=== PATIENT | male | born 1945 | race Caucasian/White ===

== ENCOUNTER 2022-09-21 18:27 | Outpatient (RCR) | payer MEDICARE, OTHER, SELFPAY | END 2022-10-15 23:59 | disposition home or self-care (01) | LOC: MM 18:27 | PROVIDERS: PCP Internal Medicine; Visit Provider Internal Medicine | DX: Z51.81 Encounter for therapeutic drug level monitoring (principal); Z79.01 Long term (current) use of anticoagulants | CPT/HCPCS: 85610; G0463 ==

== ENCOUNTER 2022-10-20 09:59 | Outpatient (RCR) | payer MEDICARE, OTHER, SELFPAY | END 2022-11-15 17:09 | disposition home or self-care (01) | LOC: MM 09:59 | PROVIDERS: PCP Internal Medicine; Visit Provider Internal Medicine | DX: Z51.81 Encounter for therapeutic drug level monitoring (principal); Z79.01 Long term (current) use of anticoagulants | CPT/HCPCS: 85610; G0463 ==

== ENCOUNTER 2022-11-16 09:46 | Outpatient (RCR) | payer MEDICARE, OTHER, SELFPAY | END 2022-12-16 17:43 | disposition home or self-care (01) | LOC: MM 09:46 | PROVIDERS: PCP Internal Medicine; Visit Provider Internal Medicine | DX: Z51.81 Encounter for therapeutic drug level monitoring (principal); Z79.01 Long term (current) use of anticoagulants | CPT/HCPCS: 85610; G0463 ==

== ENCOUNTER 2022-12-17 09:06 | Outpatient (RCR) | payer MEDICARE, OTHER, SELFPAY | END 2023-01-14 17:02 | disposition home or self-care (01) | LOC: MM 09:06 | PROVIDERS: PCP Internal Medicine; Visit Provider Internal Medicine | DX: Z51.81 Encounter for therapeutic drug level monitoring (principal); Z79.01 Long term (current) use of anticoagulants | CPT/HCPCS: 85610; G0463 ==

== ENCOUNTER 2023-01-17 03:38 | Outpatient (RCR) | payer MEDICARE, OTHER, SELFPAY | END 2023-02-15 17:46 | disposition home or self-care (01) | LOC: MM 03:38 | PROVIDERS: PCP Internal Medicine; Visit Provider Internal Medicine | DX: Z51.81 Encounter for therapeutic drug level monitoring (principal); Z79.01 Long term (current) use of anticoagulants | CPT/HCPCS: 85610; G0463 ==

== ENCOUNTER 2023-02-16 00:29 | Outpatient (RCR) | payer MEDICARE, OTHER, SELFPAY | END 2023-03-17 16:52 | disposition home or self-care (01) | LOC: MM 00:29 | PROVIDERS: PCP Internal Medicine; Visit Provider Internal Medicine | DX: Z51.81 Encounter for therapeutic drug level monitoring (principal); Z79.01 Long term (current) use of anticoagulants | CPT/HCPCS: 85610; G0463 ==

== ENCOUNTER 2023-03-22 09:53 | Outpatient (OUT) | payer MEDICARE, OTHER, SELFPAY ==
--- NOTE | 2023-03-22 11:09 | CA_ITS ---
Patient Name: BENNIE RAYA MR#: [id number] : 1945 Exam Date: 03/22/2023 Ordering Doctor: DR ANGELA ESPINO M.D. ECHOCARDIOGRAM REPORT PROCEDURE: CA ECHO DOPPLER COMPLETE INDICATIONS: Heart failure COMPARISON: None. DESCRIPTION: COMPLETE ECHOCARDIOGRAM Real-time transthoracic echocardiography with 2D, M-mode, spectral and color flow Doppler performed. QUALITY: Technical quality was good. LEFT VENTRICLE: Normal chamber size. Normal left ventricular wall thickness. LV EF: Global left ventricular systolic function is severely reduced; visually estimated ejection fraction is 15-20%. Calculated EF is 28%. 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 Diffuse hypokinesis. DIASTOLIC: Grade I diastolic dysfunction. ATRIAL SEPTUM: Inadequately seen. LEFT ATRIUM: Normal chamber size. RIGHT ATRIUM: Normal chamber size. Pacer wire present. RIGHT VENTRICLE: Normal chamber size. Normal right ventricular systolic function. Pacer wire seen. TRICUSPID VALVE: Normal mobility and thickness. Mild regurgitation. No evidence of pulmonary hypertension. RVSP 30mmHg MITRAL VALVE: Normal mobility and thickness. No evidence of mitral valve stenosis. Mild mitral annular calcification. Trivial mitral regurgitation. AORTIC VALVE: Normal trileaflet appearance. Mildly calcified aortic valve. Normal leaflet mobility. No evidence of aortic valve stenosis. Trivial aortic regurgitation. AORTIC ROOT: Normal diameter and appearance. PULMONIC VALVE: Normal thickness and mobility. No stenosis. No regurgitation. PERICARDIUM: No evidence of pericardial effusion. IVC: Collapses with inspirations. Normal size. CONCLUSION: 1. Global left ventricular systolic function is severely reduced; visually estimated ejection fraction is 15 to 20% 2. Segmental wall motion abnormality seen 3. The right ventricle is normal size and systolic function 4. Mild diastolic dysfunction 5. Mild tricuspid regurgitation Adult Echocardiography Procedure Report Left Ventricle LVEDD (3.7 - 5.6 cm): 4.67 cm LVESD (2.2 - 4.0 cm): 4.18 cm LVIVS thickness (0.6 - 1.2 cm): 0.89 cm LVPW thickness (0.5 - 1.0 cm): 0.98 cm e': 0.04 m/s E - e': 7.78 LVOT Max Gradient: 2.47 mm[Hg] LVOT Area (cm2): 0.79 m/s Peak Velocity (LVOT): 0.79 m/s Mean Velocity (LVOT): 0.52 m/s LVOT Diameter 2.12 cm Left Atrium LA Volume Index (2D A2C): 30.60 ml/m2 Left Atrium Systolic Dimension: 3.54 cm Mitral Valve MV E to A Ratio: 0.50 Mitral Valve A-Wave Peak Velocity: 0.69 m/s Mitral Valve E-Wave Peak Velocity: 0.35 m/s Right Ventricle RV Internal Diastolic Dimension: 3.79 cm Aorta AO Root Diam: 3.45 cm Ascending Ao Diam: 2.78 cm Aortic Valve AoV Area (Peak Satinder): 2.59 cm2, 2.59 cm2 AoV Area (VTI): 2.41 cm2, 2.41 cm2 Peak Velocity(Antegrade Flow): 1.07 m/s Peak Gradient(Antegrade Flow): 4.61 mm[Hg] Mean Velocity(Antegrade Flow): 0.81 m/s Mean Gradient(Antegrade Flow): 2.89 mm[Hg] Velocity Time Integral: 26.05 cm Tricuspid Valve Peak Velocity (Regurgitant Flow): 1.86 m/s, 2.04 m/s, 2.58 m/s Pulmonic Valve Mean Gradient: 1.84 mm[Hg], 1.96 mm[Hg] Mean Velocity: 0.63 m/s, 0.65 m/s Peak Velocity: 0.95 m/s Peak Gradient: 3.26 mm[Hg], 3.97 mm[Hg] Right Atrium Right Atrium Systolic Pressure: 66.45 ml, 66.45 ml Dictated by: Fernando Wilder M.D. on 03/23/2023 at 16:00 Approved by: Fernando Wilder M.D. on 03/23/2023 at 16:06
== END 2023-03-22 09:54 | disposition home or self-care (01) ==
LOC: CARD 09:53
PROVIDERS: PCP Internal Medicine; Visit Provider Internal Medicine Interventional Cardiology
DX: I50.22 Chronic systolic (congestive) heart failure (principal); I47.29 Other ventricular tachycardia
CPT/HCPCS: 93306; 93356

== ENCOUNTER 2023-03-24 14:39 | Outpatient (RCR) | payer MEDICARE, OTHER, SELFPAY | END 2023-04-15 15:44 | disposition home or self-care (01) | LOC: MM 14:39 | PROVIDERS: PCP Internal Medicine; Visit Provider Internal Medicine | DX: Z51.81 Encounter for therapeutic drug level monitoring (principal); Z79.01 Long term (current) use of anticoagulants | CPT/HCPCS: 85610; G0463 ==

== ENCOUNTER 2023-04-18 02:33 | Outpatient (RCR) | payer MEDICARE, OTHER, SELFPAY | END 2023-05-18 17:11 | disposition home or self-care (01) | LOC: MM 02:33 | PROVIDERS: PCP Internal Medicine; Visit Provider Internal Medicine | DX: Z51.81 Encounter for therapeutic drug level monitoring (principal); Z79.01 Long term (current) use of anticoagulants | CPT/HCPCS: 85610; G0463 ==

== ENCOUNTER 2023-05-19 00:57 | Outpatient (RCR) | payer MEDICARE, OTHER, SELFPAY | END 2023-06-16 17:36 | disposition home or self-care (01) | LOC: MM 00:57 | PROVIDERS: PCP Internal Medicine; Visit Provider Internal Medicine | DX: Z51.81 Encounter for therapeutic drug level monitoring (principal); Z79.01 Long term (current) use of anticoagulants; Z78.9 Other specified health status | CPT/HCPCS: 85610; G0463 ==

== ENCOUNTER 2023-06-17 01:24 | Outpatient (RCR) | payer MEDICARE, OTHER, SELFPAY | END 2023-07-15 13:56 | disposition home or self-care (01) | LOC: MM 01:24 | PROVIDERS: PCP Internal Medicine; Visit Provider Internal Medicine | DX: Z51.81 Encounter for therapeutic drug level monitoring (principal); Z79.01 Long term (current) use of anticoagulants | CPT/HCPCS: 85610; G0463 ==

== ENCOUNTER 2023-06-21 09:14 | Emergency (ER) | payer MEDICARE, OTHER, SELFPAY ==
--- OUTSIDE RECORDS SUMMARY | 2023-06-21 09:27 | XMS_ITS | CCD ---
Author Name Unknown Address [address] [place] [address] Organization [facility] Care Team Providers Care Lawn Care Worker Name Role Phone ZULY ABAD AM Admitting Unavailable ZULY ABAD AM Attending Unavailable FLORY ROBIN Referring Unavailable ROBIN, FLORY Primary Care Unavailable ZULY ABAD AM Admitting Unavailable ZULY ABAD AM Attending Unavailable FLORY ROBIN Referring Unavailable SHARDA, FLORY Primary Care Unavailable Sebas Jalloh MD Flory Robin Primary Care Provider MD Sebas Jalloh Attending Provider Sebas Jalloh Admitting Unavailable Sebas Jalloh Attending Unavailable Flory Robin Primary Care Unavailable FAWWAD, LINDA H Attending Unavailable ROBIN ., DR FLORY Azevedo Primary Care Unavailable FAWWAD, LINDA H Admitting Unavailable FAWWAD, LINDA H Attending Unavailable ROBIN ., DR FLORY Azevedo Primary Care Unavailable FAWWAD, LINDA H Admitting Unavailable FAWWAD, LINDA H Attending Unavailable ROBIN ., DR FLORY Azevedo Primary Care Unavailable FAWWAD, LINDA H Admitting Unavailable FAWWAD, LINDA H Attending Unavailable ROBIN ., DR FLORY Azevedo Primary Care Unavailable FAWWAD, LINDA H Admitting Unavailable FAWWAD, LINDA H Admitting Unavailable ROBIN ., DR FLORY Azevedo Primary Care Unavailable FAWWAD, LINDA H Attending Unavailable ROBIN ., DR FLORY Azevedo Primary Care Unavailable FAWWAD, LINDA H Admitting Unavailable FAWWAD, LINDA H Attending Unavailable ROBIN ., DR FLORY Azevedo Primary Care Unavailable FAWWAD, LINDA H Admitting Unavailable FAWWAD, LINDA H Attending Unavailable ROBIN ., DR FLORY Azevedo Primary Care Unavailable FAWWAD, LINDA H Admitting Unavailable FAWWAD, LINDA H Attending Unavailable ROBIN ., DR FLORY Azevedo Primary Care Unavailable FAWWAD, LINDA H Admitting Unavailable FAWDAYNED, LINDA H Attending Unavailable ANGELA ESPINO Admitting Unavailable ROBIN ., DR FLORY Azevedo Primary Care Unavailable EVELIOUKADMITRIY, ANGELA Attending Unavailable ANGELA ESPINO Consulting Unavailable EVELIOUKADMITRIY, ANGELA Attending Unavailable EVELIOUKAANGELA IZAGUIRRE Admitting Unavailable ROBIN ., DR FLORY Azevedo Primary Care Unavailable ROBIN ., DR FLORY Azevedo Primary Care Unavailable FAWWAD, LINDA H Admitting Unavailable FAWWAD, LINDA H Attending Unavailable ROBIN ., DR FLORY Azevedo Primary Care Unavailable FAWWAD, LINDA H Admitting Unavailable FAWWAD, LINDA H Attending Unavailable Pete Gar Primary Care Physician Pete Gar Attending Unavailable Pete Gar Attending Unavailable Pete Gar Attending Unavailable Pete Gar Attending Unavailable Pete Gar Attending Unavailable Pete Gar Attending Unavailable Pete Gar Admitting Unavailable CHANDAN BECK Attending Unavailable JUAN RAMON SMALL Referring Unavailable ANGELA ESPINO Attending Unavailable JUAN RAMON SMALL Referring Unavailable Allergies Allergy Classification Reported Allergen(s) Allergy Type Date of Onset Reaction(s) Facility (1 source) No Known Medication Allergies; Translations: [No Known Medication Allergies] Propensity to adverse reactions (disorder) [facility] Repository Medications Current Medications Medication Drug Class(es) Dates Sig (Normalized) Sig (Original) Aspir-81 (10 sources) Aspir-81 Active aspirin 81 mg oral tablet (1 source) Platelet Aggregation Inhibitor, Nonsteroidal Anti-inflammatory Drug Start: 01-21-2021 take 81 mg by mouth once daily Aspirin Active 81 MG PO Daily January 21, 2021 12:00am atorvastatin 80 mg oral tablet (20 sources) HMG-CoA Reductase Inhibitor Start: 02-28-2023 take 1 tablet by mouth once daily atorvastatin 80 mg Tab 80 mg = 1 tab(s), Oral, Daily, # 90 tab(s), Refills(s) 1, Pharmacy: [facility]/pharmacy #[id number], 167.8, cm, 02/28/23 18:13:00 EST, Height/Length Dosing, 65.2, kg, 02/28/23 18:13:00 EST, Weight Dosing Start Date: 02/28/23 Status: Ordered Start: 01-21-2021 take 80 mg by mouth once daily Atorvastatin Active 80 MG PO Daily January 21, 2021 12:00am Lipitor Not-Taki ng Atorvastatin Kenny cium Active Lipitor Active balsalazide disodium 750 mg oral capsule (10 sources) Aminosalicylate Start: 02-28-2023 take 3 capsules by mouth three times daily balsalazide 750 mg oral capsule 2,250 mg = 3 cap(s), Oral, TID, # 504 cap(s), Refills(s) 0 Start Date: 02/28/23 Status: Ordered Start: 04-13-2021 take 3 capsules by m outh every eight hours Balsalazide Disodium 750 MG 3 capsules Orally three times a day for 30 days Mar, Active Start: 04-13-2021 take 3 capsules by m outh every twelve hours Balsalazide Disodium 750 MG 3 capsules Orally Twice a day for 30 day(s) Mar, Active carvedilol 6.25 mg oral tablet (12 sources) alpha-Adrenergic Wenceslao, beta-Adrenergic Wenceslao Start: 02-28-2023 take 1 tablet by mouth twice daily carvedilol 6.25 mg Tab 6.25 mg = 1 tab(s), Oral, BID, Refills(s) 0 Start Date: 02/28/23 Status: Ordered Start: 01-21-2021 take 12.5 mg by mout h twice daily Carvedilol Active 12.5 MG PO Twice daily January 21, 2021 12:00am take 1 tablet by binta th every twelve hours Carvedilol 12.5 MG 1 tablet with food Orally Twice a day Active Carvedilol Activ e cholecalciferol 0.025 mg oral tablet (1 source) Vitamin D Start: 06-30-2022 take 1 tablet by mouth once daily Cholecalciferol (Vitamin D3) (Vitamin D3) 25 mcg (1,000 unit) Tablet Active 25 MCG PO Daily June 30, 2022 12:00am Multivitamin preparation (1 source) Start: 06-30-2022 take 1 tablet by mouth once daily Multivitamin Active 1 TAB PO Daily June 30, 2022 12:00am [place] 5-Nrj-Wpm-Fish Oil (Fish Oil) 60-90-500 mg Capsule (1 source) Start: 06-30-2022 take 1 capsule by mouth once daily [place] 1-Lat-Qed-Fish Oil (Fish Oil) 60-90-500 mg Capsule Active 1 CAP PO Daily June 30, 2022 12:00am sacubitril 24 mg / valsartan 26 mg oral tablet (12 sources) Angiotensin 2 Receptor Wenceslao Start: 02-28-2023 take 1 tablet by mouth twice daily Entresto 24 mg-26 mg oral tablet 1 tab(s), Oral, BID, Refill(s) 0 Start Date: 02/28/23 Status: Ordered Start: 01-21-2021 take 1 tablet by binta th twice daily Sacubitril-Valsartan (Entresto) 24-26 mg Tablet Active 1 TAB PO Twice daily January 21, 2021 12:00am ENTRESTO 2-26 mg Active ENTRESTO Active spironolactone 25 mg oral tablet (7 sources) Aldosterone Antagonist Start: 03-01-2023 take 0.5 tablet by mouth once daily spironolactone 25 mg Tab See Instructions, 1/2 tablet orally daily, Refills(s) 0 Start Date: 03/01/23 Status: Ordered Start: 06-30-2022 take 12.5 mg by mout h once daily Spironolactone Active 12.5 MG PO Daily June 30, 2022 12:00am take 0.5 tablet by m outh once daily Spironolactone 25 MG 1/2 tablet Orally Once a day Active Spironolactone 2 5 MG 1 tablet Orally Active warfarin sodium 4 mg oral tablet (12 sources) Vitamin K Antagonist Start: 02-28-2023 warfarin 4 mg Tab See Instructions, Take 4 mg orally on mondays and fridays and 8mg the other 5 days of the week, Refills(s) 0 Start Date: 02/28/23 Status: Ordered Start: 01-21-2021 Warfarin Activ e 4 MG PO As Directed January 21, 2021 12:00am take 2 tablets by mo uth every twenty-four hours Warfarin Sodium 4 MG 2 tablet Orally Once a day Active Warfarin Sodium Active Completed/Discontinued Medications Medication Drug Class(es) Dates Sig (Normalized) Sig (Original) mesalamine 1200 mg delayed release oral tablet (9 sources) Aminosalicylate Start: 02-17-2021 take 4 tablets by mouth every twenty-four hours Lialda 1.2 GM 4 tablets Orally Once a day for 30 day(s) Feb, Not-Taking predniSONE 5 mg oral tablet (9 sources) Start: 02-17-2021 predniSONE 5 MG 20MG FOR 1 WEEK, 15 MG FOR 1 WEEK, 10 MG FOR 1 WEEK, 5 MG FOR 1 WEEK Orally Once a day for 28 days Feb, Not-Taking Problems Active Problems Problem Classification Problem Date Documented Da te Episodic/Chronic Cardiac dysrhythmias (2 sources) Unspecified atrial fibrillation; Translations: [Paroxysmal atrial fibrillation] Onset: 8 02-28-2023 Chronic Conduction disorders (4 sources) Encounter for adjustment and management of automatic implantable cardiac defibrillator; Translations: [Presence of automatic (implantable) cardiac defibrillator] Onset: 2 Chronic Congestive heart failure; nonhypertensive (6 sources) Chronic systolic (congestive) heart failure; Translations: [CHRONIC SYSTOLIC HEART FAILURE] Onset: 2 Chronic Coronary atherosclerosis and other heart disease (2 sources) 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; Translations: [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] Onset: 2 Chronic Diverticulosis and diverticulitis (11 sources) Diverticulosis of sigmoid colon; Translations: [Diverticulosis of large intestine without perforation or abscess without bleeding] Onset: 1 Resolved: 1 Chronic Heart valve disorders (1 source) Presence of prosthetic heart valve; Translations: [PRESENCE OF PROSTHETIC HEART VALVE] Onset: 2 Chronic Other aftercare (8 sources) Encounter for therapeutic drug level monitoring; Translations: [ENCOUNTER FOR THERAPEUTIC DRUG LEVEL MONITORING] Onset: 9 Episodic Other aftercare (2 sources) detention (current) use of anticoagulants; Translations: [NURSING HOME (CURRENT) USE OF ANTICOAGULANTS] Onset: 9 Episodic Other circulatory disease (1 source) History of cerebrovascular accident 02-28-2023 Episodic Other connective tissue disease (1 source) Adhesive capsulitis of shoulder 02-28-2023 Episodic Other gastrointestinal disorders (10 sources) Incontinence of feces; Translations: [Full incontinence of feces] Episodic Other gastrointestinal disorders (10 sources) Constipation; Translations: [Constipation, unspecified] Episodic Other male genital disorders (1 source) Disorder of prostate 02-28-2023 Episodic Paralysis (1 source) Hemiparesis 02-28-2023 Chronic Peripheral and visceral atherosclerosis (1 source) Arteriosclerotic vascular disease 02-28-2023 Chronic Regional enteritis and ulcerative colitis (14 sources) Ulcerative colitis; Translations: [Ulcerative colitis, unspecified, without complications] Onset: 1 Resolved: 1 Chronic Spondylosis; intervertebral disc disorders; other back problems (1 source) Degeneration of lumbar intervertebral disc 02-28-2023 Chronic Unclassified (2 sources) DX Onset: 9 Unclassified (1 source) Other ventricular tachycardia; Translations: [Other ventricular tachycardia] Onset: 2 Past or Other Problems Problem Classification Problem Date Documented Da te Episodic/Chronic Other circulatory disease (3 sources) Personal history of transient ischemic attack (TIA), and cerebral infarction without residual deficits; Translations: [PRSNL HX OF TIA (TIA), AND CEREB INFRC W/O RESID DEFICITS] Onset: 07-17-2018 Episodic Other circulatory disease (1 source) Hemorrhage, not elsewhere classified Onset: 02-17-2021 Resolved: 02-17-2021 Episodic Other gastrointestinal disorders (1 source) Full incontinence of feces Onset: 02-17-2021 Resolved: 02-17-2021 Episodic Other gastrointestinal disorders (1 source) Constipation, unspecified Onset: 02-17-2021 Resolved: 02-17-2021 Episodic Unclassified (1 source) Other ventricular tachycardia; Translations: [Other ventricular tachycardia] Onset: 07-20-2022 Results Test Name Value Interpretation Reference Range Facil ity Consent for Flu Vaccineon Consent for Flu Vaccine [id number] #[id number] Normal [place] [facility] Office Visiton 03-02-2023 Follow-up visit [id number] Bennie Dennis 1945 M Date Provider Department Center 03/02/2023 ANGELA JOY ROBERTO [facility] Family History Problem Relation Age of Onset Coronary artery disease Brother Diabetes Brother Family Status - Relation Status Age at Brother Level of Service:64512 RI OFFICE/OUTPATIENT ESTABLISHED LOW MDM 20-29 MIN Reason for Visit and Comments: Follow-up [394382] Normal [facility] Auto Diffon 03-01-2023 Basophils/100 WBC (Bld) 0.9 % Normal 0.0-2.0 [facility] Comment on above: Order Comment: Order Added by Discern Expert. Performed By: #### 2 590676, 6816197, 9320178, 70804318, 0811516, [id number] #### [facility] [address] [place] [address] Basophils/Leukocytes Auto (Bld) [Pure # fraction] 0.1 E9/L Normal 0.0-0.2 [facility] Comment on above: Order Comment: Order Added by Discern Expert. Performed By: #### 2 767103, 0687369, 5814914, 53438340, 7208196, [id number] #### [facility] [address] [place] [address] Eosinophils/100 WBC (Bld) 3.8 % Normal 0.0-8.0 [facility] Comment on above: Order Comment: Order Added by Discern Expert. Performed By: #### 2 970109, 5723629, 4857483, 00501307, 9588491, 14251044 #### [facility] [address] [place] [address] Eosinophils/Leukocyt es Auto (Bld) [Pure # fraction] 0.3 E9/L Normal 0.0-0.5 [facility] Comment on above: Order Comment: Order Added by Discern Expert. Performed By: #### 2 127667, 5048590, 9670936, 72952525, 5297751, 98298392 #### [facility] [address] [place] [address] Lymphocytes/100 WBC (Bld) 22.4 % Normal 14.0-50.0 [facility] Comment on above: Order Comment: Order Added by Discern Expert. Performed By: #### 2 921574, 7248242, 6379250, 42562745, 1909878, 49721892 #### [facility] [address] [place] [address] Lymphocytes/Leukocyt es Auto (Bld) [Pure # fraction] 1.6 E9/L Normal 1.0-4.0 [facility] Comment on above: Order Comment: Order Added by Discern Expert. Performed By: #### 2 594781, 8886508, 2876489, 49917223, 4850848, 05711116 #### [facility] [address] [place] [address] Monocytes/100 WBC (Bld) 9.1 % Normal 4.0-14.0 [facility] Comment on above: Order Comment: Order Added by Discern Expert. Performed By: #### 2 107676, 7759976, 2471840, 69432370, 6930639, 35347457 #### [facility] [address] [place] [address] Monocytes/Leukocytes Auto (Bld) [Pure # fraction] 0.6 E9/L Normal 0.2-1.0 [facility] Comment on above: Order Comment: Order Added by Discern Expert. Performed By: #### 2 494220, 1244018, 7655550, 56298760, 9775595, 98167475 #### [facility] [address] [place] [address] Neutrophils/100 WBC (Bld) 63.8 % Normal 36.0-75.0 [facility] Comment on above: Order Comment: Order Added by Discern Expert. Performed By: #### 2 643677, 1993152, 2246006, 82277434, 1874121, 98019449 #### [facility] [address] [place] [address] Neutrophils/Leukocyt es Auto (Bld) [Pure # fraction] 4.5 E9/L Normal 2.0-7.5 [facility] Comment on above: Order Comment: Order Added by Discern Expert. Performed By: #### 2 045947, 3840879, 8543125, 91681526, 4657152, 84907227 #### [facility] [address] [place] [address] CBC w/ Auto Diffon Erythrocyte distribution width (RBC) [Ratio] 13.9 % Normal 10.9-14.2 [facility] Comment on above: Performed By: #### 2 471877, 8517970, 4340527, 23843764, 6088857, 84113202 #### [facility] [address] [place] [address] Hematocrit (Bld) [Volume fraction] 40.4 % Normal 37.7-49.0 [facility] Comment on above: Performed By: #### 2 313650, 6459977, 8821173, 01003024, 1212849, 92978240 #### [facility] [address] [place] [address] Hemoglobin (Bld) [Mass/Vol] 13.4 g/dL Low 13.5-17.5 [facility] Comment on above: Performed By: #### 2 256319, 2336767, 3104556, 06543361, 9196729, 86105563 #### [facility] [address] [place] [address] MCH (RBC) [Entitic mass] 31.0 pg Normal 27.0-34.0 [facility] Comment on above: Performed By: #### 2 054484, 6706622, 5769694, 87040340, 6845318, 27140612 #### [facility] [address] [place] [address] MCHC (RBC) [Mass/Vol] 33.3 g/dL Normal 31.4-36.0 [facility] Comment on above: Performed By: #### 2 140706, 9788434, 1639616, 96851381, 5954139, 04302584 #### [facility] [address] [place] [address] MCV (RBC) [Entitic vol] 92.9 fL Normal 80.0-100.0 [facility] Comment on above: Performed By: #### 2 476999, 1463417, 9197735, 34266080, 0527755, 43771789 #### [facility] [address] [place] [address] Platelet mean volume (Bld) [Entitic vol] 9.2 fL Normal 6.4-10.8 [facility] Comment on above: Performed By: #### 2 517659, 3408728, 9952852, 96366792, 4784819, 64227189 #### [facility] [address] [place] [address] Platelets (Bld) [#/Vol] 229.0 E9/L Normal 150.0-500.0 [facility] Comment on above: Performed By: #### 2 500603, 1999567, 6405055, 47964815, 6914597, 95144212 #### [facility] [address] [place], [place] [address] RBC (Bld) [#/Vol] 4.3 E12/L Normal 4.3-5.9 [facility] Comment on above: Performed By: #### 2 146039, 4151561, 5480849, 43122394, 3019449, 25243001 #### [facility] [address] [place] [address] WBC corrected for nucl RBC Auto (Bld) [#/Vol] 7.1 E9/L Normal 4.0-11.0 [facility] Comment on above: Performed By: #### 2 684678, 0298813, 7635636, 41016745, 0262802, 70555398 #### [facility] [address] [place] [address] CHEMISTRYOrdered By: SYSTEM SYSTEM on 03-01-2023 Albumin [Mass/Vol] 4.1 g/dL Normal 3.3 - 5.0 gm/dL [facility] Albumin/Globulin [Mass ratio] 1.2 {ratio} Normal 1.1 - 2.2 [facility] ALP [Catalytic activity/Vol] 91 [iU]/d Normal 21 - 98 Int._Unit/L [facility] ALT No additional P-5'-P [Catalytic activity/Vol] 20 [iU]/d Normal 6 - 46 Int._Unit/L [facility] Anion gap [Moles/Vol] 12 mmol/L Normal 6 - 16 mEq/L [facility] AST [Catalytic activity/Vol] 43 [iU]/d Normal 5 - 43 Int._Unit/L [facility] Bilirubin [Mass/Vol] 0.8 mg/dL Normal 0.0 - 1.1 mg/dL [facility] Calcium [Mass/Vol] 9.3 mg/dL Normal 8.9 - 11.1 mg/dL [facility] Chloride [Moles/Vol] 103 mmol/L Normal 101 - 111 mmol/ L [facility] Cholesterol [Mass/Vol] 154 mg/dL Normal 120 - 200 mg/dL [facility] Cholesterol in HDL [Mass/Vol] 47 mg/dL Invalid Interpretation Code [facility] Comment on above: Interpretive Data: H DL > or equal to 60 mg/dL: Low cardiovascular risk HDL < 40 mg/dL : High cardiovascular risk Cholesterol in LDL [Mass/Vol] 87 mg/dL Normal <=129mg/dL [facility] Cholesterol in VLDL [Mass/Vol] 19 mg/dL Normal 7 - 40 mg/dL [facility] CO2 [Moles/Vol] 28 mmol/L Normal 21 - 31 mmol/L [facility] Creatinine [Mass/Vol] 0.9 mg/dL Normal 0.5 - 1.3 mg/dL [facility] GFR/1.73 sq M.predicted among non-blacks MDRD (S/P/Bld) [Vol rate/Area] 89 mL/min/1.73 m2 Normal >=59mL/min/1.73 m2 [facility] Comment on above: Interpretive Data: C hronic kidney disease could be indicated at eGFR's of less than 60 mL/min/1.73m2. Kidney failure is indicated at less than 15 mL/min/1.73m2. Globulin (S) [Mass/Vol] 3.5 g/dL Normal 1.4 - 4.0 gm/dL [facility] Glucose [Mass/Vol] 93 mg/dL Normal 55 - 199 mg/dL [facility] Comment on above: Interpretive Data: I f this glucose result represents a fasting glucose, interpretation should refer to the following reference range: 55-99 mg/dL Potassium [Moles/Vol] 4.5 mmol/L Normal 3.5 - 5.3 mmol/L [facility] Prostate specific Ag [Mass/Vol] 0.5 ng/mL Normal 0.1 - 3.5 ng/mL [facility] Comment on above: Interpretive Data: T he concentration of PSA determined by different manufacturers can vary due to differences in assay methods and reagent specificity. Values obtained from different assay methods cannot be used interchangeably. The methodology used for this result was chemiluminescence using [employer] PSA reagent. Protein [Mass/Vol] 7.6 g/dL Normal 6.0 - 7.8 gm/dL [facility] Remisol Sodium [Moles/Vol] 138 mmol/L Normal 135 - 145 mmol/L [facility] Triglyceride [Mass/Vol] 97 mg/dL Normal <=149mg/dL [facility] Urea nitrogen [Mass/Vol] 19 mg/dL Normal 5 - 21 mg/dL [facility] Urea nitrogen/Creatinine [Mass ratio] 21 mg/mg High 10 - 20 [facility] CMPon 03-01-2023 Albumin [Mass/Vol] 4.1 g/dL Normal 3.3-5.0 [facility] Comment on above: Performed By: #### 2 429429, 9075269, 3800168, 20244397, 1491596, 10210920 #### [facility] [address] [place] [address] Albumin/Globulin (S) [Mass conc ratio] 1.2 Normal 1.1-2.2 [facility] Comment on above: Performed By: #### 2 925683, 5535284, 3581610, 12970001, 3258140, 08206222 #### [facility] [address] [place] [address] ALP [Catalytic activity/Vol] 91 Int._Unit/L Normal 21-98 [facility] Comment on above: Performed By: #### 2 384745, 0100197, 9777635, 34779346, 8510217, 87622581 #### [facility] [address] [place] [address] ALT No additional P-5'-P [Catalytic activity/Vol] 20 Int._Unit/L Normal 6-46 [facility] Comment on above: Performed By: #### 2 016185, 8250136, 6504088, 38398079, 2072174, 15900471 #### [facility] [address] [place] [address] Anion gap [Moles/Vol] 12 mmol/L Normal 6-16 [facility] Comment on above: Performed By: #### 2 432258, 9465308, 7288681, 94230094, 0295007, 09844560 #### [facility] [address] [place] [address] AST [Catalytic activity/Vol] 43 Int._Unit/L Normal 5-43 [facility] Comment on above: Performed By: #### 2 732779, 8334374, 3772088, 66558833, 2745169, 16785875 #### [facility] [address] [place] [address] Bilirubin [Mass/Vol] 0.8 mg/dL Normal 0.0-1.1 [facility] Comment on above: Performed By: #### 2 945194, 5369898, 8806991, 30132803, 9039649, 90717500 #### [facility] [address] [place] [address] Calcium [Mass/Vol] 9.3 mg/dL Normal 8.9-11.1 [facility] Comment on above: Performed By: #### 2 956422, 4416003, 8461240, 05439273, 7558176, 25178079 #### [facility] [address] [place] [address] Chloride [Moles/Vol] 103 mmol/L Normal 101-111 [facility] Comment on above: Performed By: #### 2 481830, 3279631, 6994792, 57088646, 9540597, 72297912 #### [facility] [address] [place] [address] CO2 [Moles/Vol] 28 mmol/L Normal 21-31 [facility] Comment on above: Performed By: #### 2 217313, 6872458, 1155901, 81146507, 8093646, 01025011 #### [facility] [address] [place] [address] Creatinine [Mass/Vol] 0.9 mg/dL Normal 0.5-1.3 [facility] Comment on above: Performed By: #### 2 753489, 3835482, 2992907, 34400384, 3555918, 15188979 #### [facility] [address] [place] [address] Globulin (S) [Mass/Vol] 3.5 g/dL Normal 1.4-4.0 [facility] Comment on above: Performed By: #### 2 341218, 4839393, 2502339, 52357441, 4611172, 83921829 #### [facility] [address] [place] [address] Glucose [Mass/Vol] 93 mg/dL Normal 55-199 [facility] Comment on above: Result Comment: If t his glucose result represents a fasting glucose, interpretation should refer to the following reference range: 55-99 mg/dL Performed By: #### 2 685775, 8791276, 2038683, 37004395, 7757224, 47740584 #### [facility] [address] [place] [address] Potassium [Moles/Vol] 4.5 mmol/L Normal 3.5-5.3 [facility] Comment on above: Performed By: #### 2 [id number], [id number], [id number], [id number], [id number], [id number] #### [facility] [address] [place] [address] Protein [Mass/Vol] 7.6 g/dL Normal 6.0-7.8 [facility] Comment on above: Performed By: #### 2 [id number], [id number], [id number], [id number], [id number], [id number] #### [facility] [address] [place] [address] Sodium [Moles/Vol] 138 mmol/L Normal 135-145 [facility] Comment on above: Performed By: #### 2 497917, [id number], 3139852, [id number], [id number], [id number] #### [facility] [address] [place] [address] Urea nitrogen [Mass/Vol] 19 mg/dL Normal 5-21 [facility] Comment on above: Performed By: #### 2 468847, 0752922, 3515726, [id number], [id number], [id number] #### [facility] [address] [place] [address] Urea nitrogen/Creatinine [Mass ratio] 21 No Units High 10-20 [facility] Comment on above: Performed By: #### 2 [id number], [id number], 1321952, [id number], [id number], [id number] #### [facility] [address] [place] [address] HEMATOLOGYOrdered By: SYSTEM SYSTEM on 03-01-2023 Basophils/100 WBC (Bld) 0.9 % Normal 0.0 - 2.0 % [facility]eAutoSS Basophils/Leukocytes Auto (Bld) [Pure # fraction] 0.1 E9/L Normal 0.0 - 0.2 E9/L [facility]eAutoSS Eosinophils/100 WBC (Bld) 3.8 % Normal 0.0 - 8.0 % [facility] Eosinophils/Leukocyt es Auto (Bld) [Pure # fraction] 0.3 E9/L Normal 0.0 - 0.5 E9/L [facility] Lymphocytes/100 WBC (Bld) 22.4 % Normal 14.0 - 50.0 % [facility] HemeAutoSS Lymphocytes/Leukocyt es Auto (Bld) [Pure # fraction] 1.6 E9/L Normal 1.0 - 4.0 E9/L [facility]eAutoSS Monocytes/100 WBC (Bld) 9.1 % Normal 4.0 - 14.0 % [facility]eAutoSS Monocytes/Leukocytes Auto (Bld) [Pure # fraction] 0.6 E9/L Normal 0.2 - 1.0 E9/L [facility] Neutrophils/100 WBC (Bld) 63.8 % Normal 36.0 - 75.0 % [facility]eAutoSS Neutrophils/Leukocyt es Auto (Bld) [Pure # fraction] 4.5 E9/L Normal 2.0 - 7.5 E9/L [facility] HemeAutoSS HEMATOLOGYOrdered By: Nyasia Escalona on 03-01-2023 Erythrocyte distribution width (RBC) [Ratio] 13.9 % Normal 10.9 - 14.2 % [facility] Hematocrit (Bld) [Volume fraction] 40.4 % Normal 37.7 - 49.0 % [facility] Hemoglobin (Bld) [Mass/Vol] 13.4 g/dL Low 13.5 - 17.5 gm/dL [facility] MCH (RBC) [Entitic mass] 31.0 pg Normal 27.0 - 34.0 pg [facility] MCHC (RBC) [Mass/Vol] 33.3 g/dL Normal 31.4 - 36.0 gm/dL [facility] MCV (RBC) [Entitic vol] 92.9 fL Normal 80.0 - 100.0 fL [facility] Platelet mean volume (Bld) [Entitic vol] 9.2 fL Normal 6.4 - 10.8 fL [facility] Platelets (Bld) [#/Vol] 229.0 E9/L Normal 150.0 - 500.0 E9/L [facility] RBC (Bld) [#/Vol] 4.3 E12/L Normal 4.3 - 5.9 E12/L [facility] WBC corrected for nucl RBC Auto (Bld) [#/Vol] 7.1 E9/L Normal 4.0 - 11.0 E9/L [facility] Lipid Panelon 03-01-2023 Cholesterol [Mass/Vol] 154 mg/dL Normal 120-200 [facility] Comment on above: Performed By: #### 2 [id number], 7433439, 1476857, [id number], [id number], [id number] #### [facility] [address] [place] [address] Cholesterol in HDL [Mass/Vol] 47 mg/dL Invalid Interpretation Code [facility] Comment on above: Result Comment: HDL > or equal to 60 mg/dL: Low cardiovascular risk HDL < 40 mg/dL : High cardiovascular risk Performed By: #### 2 190770, 7508478, 5875365, [id number], 5886254, [id number] #### [facility] [address] [place] [address] Cholesterol in LDL [Mass/Vol] 87 mg/dL Normal <=129 [facility] Comment on above: Performed By: #### 2 722449, 0284999, 8182277, 04009269, 7069881, [id number] #### [facility] [address] [place] [address] Cholesterol in VLDL [Mass/Vol] 19 mg/dL Normal 7-40 [facility] Comment on above: Performed By: #### 2 005685, 3999730, 2383557, [id number], 0804236, [id number] #### [facility] [address] [place] [address] Triglyceride [Mass/Vol] 97 mg/dL Normal <=149 [facility] Comment on above: Performed By: #### 2 105092, 5111430, 2975938, 86319214, 1627031, [id number] #### [facility] [address] [place] [address] Nurse Consultation Noteon Nurse Consultation Note Reason for Visit Here for lab draw Assessment/Plan ASCVD (arteriosclerotic cardiovascular disease) (I25.10: 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) CVA (cerebrovascular accident) (I63.9: Cerebral infarction, unspecified) Disorder of prostate (N42.9: Disorder of prostate, unspecified) Medications atorvastatin 80 mg Tab, 80 mg= 1 tab(s), Oral, Daily, 1 refills balsalazide 750 mg oral capsule, 2250 mg= 3 cap(s), Oral, TID carvedilol 6.25 mg Tab, 6.25 mg= 1 tab(s), Oral, BID Entresto 24 mg-26 mg oral tablet, 1 tab(s), Oral, BID spironolactone 25 mg Tab, See Instructions warfarin 4 mg Tab, See Instructions Allergies No Known Medication Allergies Immunizations Vaccine Date Status influenza virus vaccine, inactivated 02/28/2023 Given pneumococcal 23-valent vaccine 04/12/2021 Recorded influenza virus vaccine, inactivated 04/12/2021 Recorded SARS-CoV-2 (COVID-19) mRNA BNT-162b2 vax 08/07/2020 Recorded SARS-CoV-2 (COVID-19) mRNA BNT-162b2 vax 07/18/2020 Recorded influenza virus vaccine, inactivated 02/20/2019 Recorded pneumococcal 13-valent vaccine 02/05/2019 Recorded Normal [facility] PSA Screen, Totalon 03-01-20 23 Prostate specific Ag [Mass/Vol] 0.5 ng/mL Normal 0.1-3.5 [facility] Comment on above: Result Comment: The concentration of PSA determined by different manufacturers can vary due to differences in assay methods and reagent specificity. Values obtained from different assay methods cannot be used interchangeably. The methodology used for this result was chemiluminescence using [employer] PSA reagent. Performed By: #### 2 [id number], 2128693, 3078786, [id number], 1824335, [id number] #### [facility] [address] [place] [address] Screenson 03-01-2023 Screens [id number]# 1.00TIFF Normal [facility] eGFRon 03-01-2023 GFR/1.73 sq M.predicted among non-blacks MDRD (S/P/Bld) [Vol rate/Area] 89 mL/min/1.73 m2 Normal >=59 [facility] Comment on above: Order Comment: Order added by Discern Expert. Result Comment: Contract Runner chavez kidney disease could be indicated at eGFR's of less than 60 mL/min/1.73m2. Kidney failure is indicated at less than 15 mL/min/1.73m2. Performed By: #### 2 334063, 4753374, 5329611, 75664631, 0246405, [id number] #### [facility] [address] [place] [address] Ambulatory Visit Summaryon 1 04-30-2022 Ambulatory Visit Summary BENNIE DENNIS :1945 Visit Date:02/28/2023 Ambulatory Visit Instructions Your Diagnosis Hx of heart artery stent Hemiparesis Hx of arterial ischemic stroke ASCVD (arteriosclerotic cardiovascular disease) Ulcerative colitis BMI 23.0-23.9, adult Nonsmoker Paroxysmal A-fib Encounter for immunization Your Care Team Attending Physician - Pete Gar MD Primary Care Physician - Pete Gar MD This Is Your Medications List atorvastatin (atorvastatin 80 mg Tab) balsalazide (balsalazide 750 mg oral capsule) carvedilol (carvedilol 6.25 mg Tab) sacubitril-valsartan (Entresto 24 mg-26 mg oral tablet) warfarin (warfarin 4 mg Tab) Procedures Performed Cardiac catheter, Carotid endarterectomy, Colonoscopy. Discharge Vitals Temperature (Temporal Artery) 37.0 ?C Heart Rate (Peripheral) 70 Respiratory Rate 16 Blood Pressure 124/78 Height 167.8 cm Height 66 in Weight 65.2 kg Weight 143.44 lb BMI 23.16 What to do next Scheduled Follow-Up Appointments Tuesday 8:20 AM EST With: Where: [facility] Normal [address] [place] [address]- \.br\ Medications\.br\ What How Much When Instructions\.br \ Unchanged atorvastatin (atorvastatin 80 mg Tab) 1 Tablets By Mouth Every day\.br\ Unchanged balsalazide (balsalazide 750 mg oral capsule) 3 Capsules By Mouth 3 times a day\.br\ Unchanged carvedilol (carvedilol 6.25 mg Tab) 1 Tablets By Mouth 2 times a day\.br\ Unchanged sacubitril-valsa rtan (Entresto 24 mg-26 mg oral tablet) 1 Tablets By Mouth 2 times a day\.br\ Unchanged warfarin (warfarin 4 mg Tab) See instructions Take 4 mg orally on mondays and fridays and 8mg the other 5 days of the week \.br\ Medications and Immunizations Administered\.br \ Given\.br\ influenza virus vaccine, inactivated HIGH DOSE preservative-alexis e quadrivalent intramuscular susp, 0.7 mL, IntraMuscular. For:\.br\ influenza virus vaccine, inactivated, IntraMuscular\.b r\ Allergies\.br\ No Known Medication Allergies\.br\ Problems\.br\ Ongoing - Any problem that you are currently receiving treatment for.\.br\ Adhesive capsulitis of shoulder\.br\ ASCVD (arterioscleroti c cardiovascular disease)\.br\ DDD (degenerative disc disease), lumbar\.br\ Hemiparesis\.br\ Hx of arterial ischemic stroke\.br\ Hx of heart artery stent\.br\ Paroxysmal A-fib\.br\ Prostate disorder\.br\ Ulcerative colitis\.br\ Patient Survey\.br\ You may receive a survey via text or e-mail asking about your office visit. Please share your experience with us by completing your survey. We appreciate your feedback and thank you for choosing us for your care.\.br\ \.br\ [facility] Family Medicine Office/Clini c Noteon 02-28-2023 Family Medicine Office/Clinic Note HPI Staff Bennie is a 77 year old male presenting to establish care Establish Care: History:ASCVD, CVS,Arthritis, ND, DDD Last provider: Sharda Any recent labs: none Sees Dr Espino for heart Sees Dr Jalloh for ulcerative colitis Health Maintenance UTD: Colonoscopy: 2020 PSA: ?? flu: will take one today Acute: Current issues/complaints: needs his atorvastatin refilled History of Present Illness Here to establish care No new issues. Review of Systems PHQ Score Initial Depression Screen Score: 2 SCORE Physical Exam Vitals & Measurements T: 37.0 ?C(Temporal Artery) HR: 70(Peripheral) RR: 16 BP: 124/78 SpO2: 98% HT: 66 in HT: 167.8 cm WT: 65.2 kg WT: 143.44 lb BMI: 23.16 General: alert, no acute distress ENMT: oral mucosa moist, Cardiovascular: regular rate and rhythm, normal peripheral perfusion Respiratory: Lungs CTA, respirations non labored Extremities: no deformity, no trauma Neurological: oriented x 4, LOC appropriate for age, CN II-XII intact, motor strength decreased on left, speech normal Abdomen: Soft, Nontender, Non-distended, + BS Assessment/Plan 1. Hx of heart artery stent (Z95.5: Presence of coronary angioplasty implant and graft) - Continue with Cardiology - Will get records - Follow up in 6 months Ordered: influenza virus vaccine, inactivated, 0.7 mL, Injection, IntraMuscular, Once, Stop date 02/28/23 19:00:00 EST, Routine, Start date 02/28/23 19:00:00 EST CBC w/ Auto Diff Comprehensive Metabolic Panel Lipid Panel PSA Screen, Total 2. Hemiparesis (G81.90: Hemiplegia, unspecified affecting unspecified side) - L hand from his CVA - No new issues Ordered: influenza virus vaccine, inactivated, 0.7 mL, Injection, IntraMuscular, Once, Stop date 02/28/23 19:00:00 EST, Routine, Start date 02/28/23 19:00:00 EST CBC w/ Auto Diff Comprehensive Metabolic Panel Lipid Panel PSA Screen, Total 3. Hx of arterial ischemic stroke (Z86.73: Personal history of transient ischemic attack (TIA), and cerebral infarction without residual deficits) - As above Ordered: influenza virus vaccine, inactivated, 0.7 mL, Injection, IntraMuscular, Once, Stop date 02/28/23 19:00:00 EST, Routine, Start date 02/28/23 19:00:00 EST Body Mass Index (BMI) documented 3008F CBC w/ Auto Diff Comprehensive Metabolic Panel Current tobacco non-user 1036F Depression Screening Negative 3352F Influenza immunization administered or previously received 4274F Lipid Panel Most recent diastolic blood pressure <80 mm Hg 3078F Patient screen for fall risk: no falls in last year or 1 fall with no injury in last year 1101F PSA Screen, Total Systolic BP <130 mm Hg (Most Recent) 3074F 4. ASCVD (arteriosclerotic cardiovascular disease) (I25.10: 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) - Continue on ASA/Statin Ordered: influenza virus vaccine, inactivated, 0.7 mL, Injection, IntraMuscular, Once, Stop date 02/28/23 19:00:00 EST, Routine, Start date 02/28/23 19:00:00 EST Body Mass Index (BMI) documented 3008F CBC w/ Auto Diff Comprehensive Metabolic Panel Current tobacco non-user 1036F Depression Screening Negative 3352F Influenza immunization administered or previously received 4274F Lipid Panel Most recent diastolic blood pressure <80 mm Hg 3078F Patient screen for fall risk: no falls in last year or 1 fall with no injury in last year 1101F PSA Screen, Total Systolic BP <130 mm Hg (Most Recent) 3074F 5. Ulcerative colitis (K51.90: Ulcerative colitis, unspecified, without complications) - No issues today - Will monitor - Sees GI Ordered: Body Mass Index (BMI) documented 3008F CBC w/ Auto Diff Comprehensive Metabolic Panel Current tobacco non-user 1036F Depression Screening Negative 3352F Influenza immunization administered or previously received 4274F Lipid Panel Most recent diastolic blood pressure <80 mm Hg 3078F Patient screen for fall risk: no falls in last year or 1 fall with no injury in last year 1101F PSA Screen, Total Systolic BP <130 mm Hg (Most Recent) 3074F 6. BMI 23.0-23.9, adult (Z68.23: Body mass index [BMI] 23.0-23.9, adult) - BMI education given Ordered: Body Mass Index (BMI) documented 3008F CBC w/ Auto Diff Comprehensive Metabolic Panel Current tobacco non-user 1036F Depression Screening Negative 3352F Influenza immunization administered or previously received 4274F Lipid Panel Most recent diastolic blood pressure <80 mm Hg 3078F Patient screen for fall risk: no falls in last year or 1 fall with no injury in last year 1101F PSA Screen, Total Systolic BP <130 mm Hg (Most Recent) 3074F 7. Nonsmoker (Z78.9: Other specified health status) - Please continue to not smoke Ordered: Body Mass Index (BMI) documented 3008F CBC w/ Auto Diff Comprehensive Metabolic Panel Current tobacco non-user 1036F Depression Screening Negative 3352F Influenza immunization administe (more content not included)... Normal [facility] Comment on above: Result Comment: Elec tronically Signed By: Cong STEWART, Pete Bell.br\Date and Time Signed: 02/28/23 18:42 EST Patient Educationon 02-29-20 23 Patient Education Nutrition BMI for Adults What is BMI? Body mass index (BMI) is a number that is calculated from a person's weight and height. BMI can help estimate how much of a person's weight is composed of fat. BMI does not measure body fat directly. Rather, it is an alternative to procedures that directly measure body fat, which can be difficult and expensive. BMI can help identify people who may be at higher risk for certain medical problems. What are BMI measurements used for? BMI is used as a screening tool to identify possible weight problems. It helps determine whether a person is obese, overweight, a healthy weight, or underweight. BMI is useful for: ? Identifying a weight problem that may be related to a medical condition or may increase the risk for medical problems. ? Promoting changes, such as changes in diet and exercise, to help reach a healthy weight. BMI screening can be repeated to see if these changes are working. How is BMI calculated? BMI involves measuring your weight in relation to your height. Both height and weight are measured, and the BMI is calculated from those numbers. This can be done either in [place] ([place] or metric measurements. Note that charts and online BMI calculators are available to help you find your BMI quickly and easily without having to do these calculations yourself. To calculate your BMI in [place] measurements: 1. Measure your weight in pounds (lb). 2. Multiply the number of pounds by 703. ? For example, for a person who weighs 180 lb, multiply that number by 703, which equals 126,540. 3. Measure your height in inches. Then multiply that number by itself to get a measurement called inches squared. ? For example, for a person who is 70 inches tall, the inches squared measurement is 70 inches x 70 inches, which equals 4,900 inches squared. 4. Divide the total from step 2 (number of lb x 703) by the total from step 3 (inches squared): 126,540 ? 4,900 = 25.8. This is your BMI. To calculate your BMI in metric measurements: 1. Measure your weight in kilograms (kg). 2. Measure your height in meters (m). Then multiply that number by itself to get a measurement called meters squared. ? For example, for a person who is 1.75 m tall, the meters squared measurement is 1.75 m x 1.75 m, which is equal to 3.1 meters squared. 3. Divide the number of kilograms (your weight) by the meters squared number. In this example: 70 ? 3.1 = 22.6. This is your BMI. What do the results mean? BMI charts are used to identify whether you are underweight, normal weight, overweight, or obese. The following guidelines will be used: ? Underweight: BMI less than 18.5. ? Normal weight: BMI between 18.5 and 24.9. ? Overweight: BMI between 25 and 29.9. ? Obese: BMI of 30 or above. Keep these notes in mind: ? Weight includes both fat and muscle, so someone with a muscular build, such as an athlete, may have a BMI that is higher than 24.9. In cases like these, BMI is not an accurate measure of body fat. ? To determine if excess body fat is the cause of a BMI of 25 or higher, further assessments may need to be done by a health care provider. ? BMI is usually interpreted in the same way for men and women. Where to find more information For more information about BMI, including tools to quickly calculate your BMI, go to these websites: ? Centers for Disease Control and Prevention: www.cdc.gov ? [employer] Heart Association: www.heart.org ? National Heart, Lung, and Blood [employer]: www.nhlbi.nih.gov Summary ? Body mass index (BMI) is a number that is calculated from a person's weight and height. ? BMI may help estimate how much of a person's weight is composed of fat. BMI can help identify those who may be at higher risk for certain medical problems. ? BMI can be measured using [place] measurements or metric measurements. ? BMI charts are used to identify whether you are underweight, normal weight, overweight, or obese. This information is not intended to replace advice given to you by your health care provider. Make sure you discuss any questions you have with your health care provider. Document Revised: 12/26/2019 Document Reviewed: 11/02/2019 [employer] Patient Education ? 2022 [employer] [facility] Consultation Noteon 10-15-19 23 Consultation Note [id number]# 1.00CD:127 Normal [facility] Lab Reportson 07-28-2022 Lab Reports [id number] #1.00CD:127 Normal [facility] CBC AUTO DIFFon 07-20-2022 BASO # 0.1 103/ul Normal 0.0-0.1 [facility] Comment on above: Performed By: #### C BC #### [facility] [address] [address] [address] Kj Dunn Basophils/100 WBC (Bld) 0.9 % Normal 0.2-2.0 [facility] Comment on above: Performed By: #### C BC #### [facility] [address] [place] [address] Dr. Kj Dunn EO # 0.2 103/ul Normal 0.0-0.7 [facility] Comment on above: Performed By: #### C BC #### [facility] [address] [place] [address] Dr. Kj Dunn Eosinophils/100 WBC (Bld) 3.1 % Normal 0.9-7.0 [facility] Comment on above: Performed By: #### C BC #### [facility] [address] [place] [address] Dr. Kj Dunn Erythrocyte distribution width (RBC) [Ratio] 13.3 % Normal 11.0-15.0 [facility] Comment on above: Performed By: #### C BC #### [facility] [address] [place] [address] Dr. Kj Dunn Hematocrit (Bld) [Volume fraction] 39.2 % Critically low 42.0-54.0 [facility] Comment on above: Performed By: #### C BC #### [facility] [address] [place] [address] Dr. Kj Dunn Hemoglobin (Bld) [Mass/Vol] 13.0 g/dL Critically low 14.0-18.0 [facility] Comment on above: Performed By: #### C BC #### [facility] [address] [place] [address] Dr. Kj Dunn IG # 0.02 10e3/ul Normal 0.00-0.03 [facility] Comment on above: Performed By: #### C BC #### [facility] [address] [place] [address] Dr. Kj Dunn IG % 0.3 % Normal 0.0-0.5 [facility] Comment on above: Performed By: #### C BC #### [facility] [address] [place] [address] Dr. Kj Dunn LYMPH # 2.7 103/ul Normal 1.2-3.8 [facility] Comment on above: Performed By: #### C BC #### [facility] [address] [place] [address] Dr. Kj Dunn Lymphocytes/100 WBC (Bld) 38.8 % Normal 20.5-60.0 [facility] Comment on above: Performed By: #### C BC #### [facility] [address] [place] [address] Dr. Kj Dunn MANUAL DIFF REQ NO Normal [facility] Comment on above: Performed By: #### C BC #### [facility] [address] [place] [address] Dr. Kj Dunn MCH (RBC) [Entitic mass] 31.0 pg Normal 25.9-34.0 [facility] Comment on above: Performed By: #### C BC #### [facility] [address] [place] [address] Dr. Kj Dunn MCHC (RBC) [Mass/Vol] 33.2 g/dL Normal 29.9-35.2 [facility] Comment on above: Performed By: #### C BC #### [facility] [address] [place] [address] Dr. Kj Dunn MCV (RBC) [Entitic vol] 93.3 fL Normal 80.0-94.0 [facility] Comment on above: Performed By: #### C BC #### [facility] [address] [place] [address] Dr. Kj Dunn MONO # 0.5 103/ul Normal 0.3-0.8 [facility] Comment on above: Performed By: #### C BC #### [facility] [address] [place] [address] Dr. Kj Dunn Monocytes/100 WBC (Bld) 7.5 % Normal 1.7-12.0 [facility] Comment on above: Performed By: #### C BC #### [facility] [address] [place] [address] Dr. Kj Dunn NEUT # 3.4 103/ul Normal 1.4-6.5 [facility] Comment on above: Performed By: #### C BC #### [facility] [address] [place] [address] Dr. Kj Dunn Neutrophils/100 WBC (Bld) 49.4 % Normal 43.0-75.0 [facility] Comment on above: Performed By: #### C BC #### [facility] [address] [place] [address] Dr. Kj Dunn Platelet mean volume (Bld) [Entitic vol] 10.1 fL Normal 9.5-13.5 [facility] Comment on above: Performed By: #### C BC #### [facility] [address] [place] [address] Dr. Kj Dunn PLT 248 103/ul Normal 150-450 [facility] Comment on above: Performed By: #### C BC #### [facility] [address] [place] [address] Dr. Kj Dunn RBC 4.20 106/ul Critically low 4.70-6.10 [facility] Comment on above: Performed By: #### C BC #### [facility] [address] [place] [id number] Dr. Kj Dunn WBC 6.8 103/ul Normal 4.0-11.0 [facility] Comment on above: Performed By: #### C BC #### [facility] [address] [place] [address] Dr. Kj Dunn Office Visiton 07-20-2022 Follow-up visit [id number] Bennie Dennis 1945 M Date Provider Department Center 07/20/2022 [id number] BECK [facility] Family History Problem Relation Age of Onset Coronary artery disease Brother Diabetes Brother Family Status - Relation Status Age at Brother Level of Service:78143 RI OFFICE/OUTPATIENT ESTABLISHED MOD MDM 30-39 MIN Reason for Visit and Comments: Follow-up [484599] Normal [facility] PROF CHEM 8 (BAS METB)on Anion gap [Moles/Vol] 9.8 mmol/L Normal [facility] Comment on above: Performed By: #### B MP #### [facility] [address] [place] [address] Dr. Kj Dunn Calcium [Mass/Vol] 9.2 mg/dL Normal 8.5-10.1 [facility] Comment on above: Performed By: #### B MP #### [facility] [address] [place] [address] Dr. Kj Dunn Chloride [Moles/Vol] 104 mmol/L Normal 98-107 [facility] Comment on above: Performed By: #### B MP #### [facility] [address] [place] [address] Dr. Kj Dunn CO2 [Moles/Vol] 30.7 mmol/L Normal 21.0-32.0 [facility] Comment on above: Performed By: #### B MP #### [facility] [address] [place] [address] Dr. Kj Dunn Creatinine [Mass/Vol] 0.98 mg/dL Normal 0.70-1.30 [facility] Comment on above: Performed By: #### B MP #### [facility] [address] [place] [address] Dr. Kj Dunn EGFR-AF TOGOLESE >60 Normal >=60 [facility] Comment on above: Performed By: #### B MP #### [facility] [address] [place] [address] Dr. Kj Dunn EGFR-NON AF TOGOLESE >60 Normal >=60 [facility] Comment on above: Performed By: #### B MP #### [facility] [address] [address] [address] Kj Dunn Glucose [Mass/Vol] 99 mg/dL Normal 74-106 [facility] Comment on above: Performed By: #### B MP #### [facility] [address] [address] [address] Kj Dunn Potassium [Moles/Vol] 4.5 mmol/L Normal 3.5-5.1 [facility] Comment on above: Performed By: #### B MP #### [facility] [address] [address] [address] Kj Dunn Sodium [Moles/Vol] 140 mmol/L Normal 136-145 [facility] Comment on above: Performed By: #### B MP #### [facility] [address] [address] [address] Kj Dunn Urea nitrogen [Mass/Vol] 24.0 mg/dL Critically high 7.0-18.0 [facility] Comment on above: Performed By: #### B MP #### [facility] [address] [address] [address] Kj Dunn Urea nitrogen/Creatinine [Mass ratio] 24.5 mg/mg Normal [facility] Comment on above: Performed By: #### B MP #### [facility] [address] [address] [address] Kj Dunn Lab Reportson 07-06-2022 Lab Reports [id number] #1.00CD:127 Normal [facility] Outside Colonoscopyon 2022 Outside Colonoscopy [id number]# 1.00CD:127 Normal [facility] Basophils Auto (Bld) [#/Vol] Ordered By: Sebas Jalloh on 06-30-2022 Basophils (Bld) [#/Vol] 0.1 10*3/uL 0.0-0.[address] [facility] Basophils/100 WBC Auto (Bld) Ordered By: Sebas Jalloh on 06-30-2022 Basophils/100 WBC (Bld) 0.7 % . [facility] Complete Blood Count Auto Di ffon 06-30-2022 Basophils (Bld) [#/Vol] 0.1 10*3/uL Normal 0.0-0.[address] [facility] Comment on above: Result Comment: PERF ORMED BY: [place] [address] PATHOLOGIST RUM PROCESSING OPERATOR MIGUEL ÁNGEL DENT M.D. Performed By: #### C BC #### [address] Basophils/100 WBC (Bld) 0.7 % Normal . [facility] Comment on above: Performed By: #### C BC #### [address] Eosinophils (Bld) [#/Vol] 0.1 10*3/uL Normal 0.0-0.[address] [facility] Comment on above: Performed By: #### C BC #### [address] Eosinophils/100 WBC (Bld) 1.8 % Normal . [facility] Comment on above: Performed By: #### C BC #### [address] Erythrocyte distribution width (RBC) [Ratio] 13.8 % Normal 12.0-14.[address] [facility] Comment on above: Performed By: #### C BC #### [address] Hematocrit (Bld) [Volume fraction] 39.6 % Normal 38.8-50.[address] [facility] Comment on above: Performed By: #### C BC #### [place] [address] [place] Hemoglobin (Bld) [Mass/Vol] 13.6 g/dL Normal 13.0-17.[address] [facility] Comment on above: Performed By: #### C BC #### [place] [address] [place] Lymphocytes (Bld) [#/Vol] 2.5 10*3/uL Normal 1.00-4.[address] [facility] Comment on above: Performed By: #### C BC #### [address] Lymphocytes/100 WBC (Bld) 30.5 % Normal . [facility] Comment on above: Performed By: #### C BC #### [address] MCH (RBC) [Entitic mass] 31.5 pg Normal 27.5-35.[address] [facility] Comment on above: Performed By: #### C BC #### [address] MCV (RBC) [Entitic vol] 91.4 fL Normal 83.5-[address] [facility] Comment on above: Performed By: #### C BC #### [address] Mean Corpuscular HGB Conc 34.4 g/dL Normal 32.5-35.[address] [facility] Comment on above: Performed By: #### C BC #### [address] Monocytes (Bld) [#/Vol] 0.5 10*3/uL Normal 0.0-0.[address] [facility] Comment on above: Performed By: #### C BC #### [address] Monocytes/100 WBC (Bld) 6.4 % Normal . [facility] Comment on above: Performed By: #### C BC #### [address] Neutrophils (Bld) [#/Vol] 4.9 10*3/uL Normal 1.8-7.[address] [facility] Comment on above: Performed By: #### C BC #### [address] Neutrophils/100 WBC (Bld) 60.6 % Normal . [facility] Comment on above: Performed By: #### C BC #### [facility] [address] NRBC% 0.1 /100{WBC} Normal 0-0.[address] [facility] Comment on above: Performed By: #### C BC #### [facility] [address] Platelet mean volume (Bld) [Entitic vol] 8.2 fL Normal 6.6-10.[address] [facility] Comment on above: Performed By: #### C BC #### [facility] [address] Platelets (Bld) [#/Vol] 246 10*3/uL Normal 150-[address] [facility] Comment on above: Performed By: #### C BC #### [facility] [address] RBC (Bld) [#/Vol] 4.34 10*6/uL Normal 3.90-5.60 [facility] Comment on above: Performed By: #### C BC #### [facility] [address] WBC (Bld) [#/Vol] 8.0 10*3/uL Normal 4.1-10.5 [facility] Comment on above: Performed By: #### C BC #### [facility] [address] [place] [address] [place] Eosinophils Auto (Bld) [#/Vo l]Ordered By: Sebas Jalloh on 06-30-2022 Eosinophils (Bld) [#/Vol] 0.1 10*3/uL 0.0-0.[address] [facility] Eosinophils/100 WBC Auto (Bl d)Ordered By: Sebas Jalloh on 06-30-2022 Eosinophils/100 WBC (Bld) 1.8 % . [facility] Erythrocyte distribution wid th Auto (RBC) [Ratio]Ordered By: Sebas Jalloh on 06-30-2022 Erythrocyte distribution width (RBC) [Ratio] 13.8 % 12.0-14.[address] [facility] Hematocrit Auto (Bld) [Volum e fraction]Ordered By: Sebas Jalloh on 06-30-2022 Hematocrit (Bld) [Volume fraction] 39.6 % 38.8-50.[address] [facility] Hemoglobin [Mass/volume] in BloodOrdered By: Sebas Jalloh on 06-30-2022 Hemoglobin (Bld) [Mass/Vol] 13.6 g/dL 13.0-17.[address] [facility] Liban 06-30-2022 L Specimen: [id number] Received: 06/30/22 Status: GEETA Bill Num: [id number] Spec Type: Surgical Subm Dr: Sebas Jalloh MD Tissues: A Colon Biopsy (LT COLON BX) Procedures: Rosy MENDEZ/Rachel Pina Age/ Patient Sex Location Account Attending Physician Bennie Dennis 76/M [id number] Sebas Jalloh MD SPEC NUM: [id number] RECD: 06/30/22 STATUS: GEETA BILL NUM: [id number] JANELLE: 06/30/22- [facility] DR: Sebas Jalloh MD ENTERED: 06/30/22 [facility] DR: SPEC TYPE: Surgical DEPT: S ORDERED: HE/2, Gross/Micro L4 ORDERED: HE/2, Gross/Micro L4 Pathological Diagnosis Colon, left, biopsy: - Chronic colitis, mild to moderately active. - Negative for epithelial dysplasia. COMMENT: The specimen shows patchy mild active colitis. There are architectural changes including abnormal crypt orientation/branchin g, Paneth cell metaplasia, and elevation of crypts relative to muscularis mucosa are present. Activity is evidenced by neutrophilic cryptitis and neutrophilic crypt abscesses. Epithelial dysplasia is absent. Granulomas are not seen. The findings are most consistent with inflammatory bowel disease in the correct clinical setting. Clinical and endoscopic correlation is advised. Clinical Information Ulcerative colitis Gross Description Received in formalin labeled with the patient's name, number and left colon are two fragments of soft de leon tissue averaging 0.3 x 0.2 x 0.2 cm. Entirely submitted in one cassette labeled A1. Specimen: [id number] Received: 06/30/22 Status: GEETA Bill Num: [id number] Spec Type: Surgical Subm Dr: Sebas Jalloh MD Tissues: A Colon Biopsy (LT COLON BX) Procedures: HE/2, Gross/Micro L4 Patient: Bennie Dennis [id number] (Continued) Specimen: [id number] Received: 06/30/22 (Continued) Signed (signature on file) Linsey Rodriguez MD 07/01/22 1059 Specimen: [id number] Received: 06/30/22 Status: GEETA Bill Num: [id number] Spec Type: Surgical Subm Dr: Sebas Jalloh MD Tissues: A Colon Biopsy (LT COLON BX) Procedures: HE/2, Gross/Micro L4 Patient: Bennie Dennis [id number] (Continued) Specimen: [id number] Received: 06/30/22 (Continued) Microscopic Description Two glass slides with H E stained material have been examined. The microscopic findings support the above pathologic diagnosis. CPT Codes 19129 Specimen: [id number] Received: 06/30/22 Status: GEETA Bill Num: [id number] Spec Type: Surgical Subm Dr: Sebas Jalloh MD Tissues: A Colon Biopsy (LT COLON BX) Procedures: HE/2, Gross/Micro L4 Patient: SonnyBennie [id number] (Continued) Signed (signature on file) Linsey Rodriguez MD 07/01/[address] [facility] Leukocytes [#/volume] correc jung for nucleated erythrocytes in Blood by Automated counOrdered By: Sebas Jalloh on 06-30-2022 WBC corrected for nucl RBC Auto (Bld) [#/Vol] 8.0 10*3/uL 4.1-10.[address] [facility] Lymphocytes Auto (Bld) [#/Vo l]Ordered By: Sebas Jalloh on 06-30-2022 Lymphocytes (Bld) [#/Vol] 2.5 10*3/uL 1.00-4.[address] [facility] Lymphocytes/100 WBC Auto (Bl d)Ordered By: Sebas Jalloh on 06-30-2022 Lymphocytes/100 WBC (Bld) 30.5 % . [facility] MCH Auto (RBC) [Entitic mass ]Ordered By: Sebas Jalloh on 06-30-2022 MCH (RBC) [Entitic mass] 31.5 pg 27.5-35.[address] [facility] MCHC Auto (RBC) [Mass/Vol]Or dered By: Sebas Jalloh on 06-30-2022 MCHC (RBC) [Mass/Vol] 34.4 g/dL 32.5-35.[address] [facility] MCV Auto (RBC) [Entitic vol] Ordered By: Sebas Jalloh on 06-30-2022 MCV (RBC) [Entitic vol] 91.4 fL 83.5-[address] [facility] Monocytes Auto (Bld) [#/Vol] Ordered By: Sebas Jalloh on 06-30-2022 Monocytes (Bld) [#/Vol] 0.5 10*3/uL 0.0-0.[address] [facility] Monocytes/100 WBC Auto (Bld) Ordered By: Sebas Jalloh on 06-30-2022 Monocytes/100 WBC (Bld) 6.4 % . [facility] Neutrophils Auto (Bld) [#/Vo l]Ordered By: Sebas Jalloh on 06-30-2022 Neutrophils (Bld) [#/Vol] 4.9 10*3/uL 1.8-7.[address] [facility] Neutrophils/100 WBC Auto (Bl d)Ordered By: Sebas Jalloh on 06-30-2022 Neutrophils/100 WBC (Bld) 60.6 % . [facility] Nucleated erythrocytes [Pres ence] in Blood by Automated countOrdered By: Sebas Jalloh on 06-30-2022 Nucleated RBC Auto Ql (Bld) 0.1 /100{WBC} 0-0.[address] [facility] Platelet mean volume Auto (B ld) [Entitic vol]Ordered By: Sebas Jalloh on 06-30-2022 Platelet mean volume (Bld) [Entitic vol] 8.2 fL 6.6-10.[address] [facility] Platelets Auto (Bld) [#/Vol] Ordered By: Sebas Jalloh on 06-30-2022 Platelets (Bld) [#/Vol] 246 10*3/uL 150-[address] [facility] RBC Auto (Bld) [#/Vol]Ordere d By: Sebas Jalloh on 06-30-2022 RBC (Bld) [#/Vol] 4.34 10*6/uL 3.90-5.60 [facility] WBC Auto (Bld) [#/Vol]Ordere d By: Sebas Jalloh on 06-30-2022 WBC (Bld) [#/Vol] 8.0 10*3/uL 4.1-10.5 [facility] Vital Signs Date Time Vital Sign Value Performing Clinician Facility 06-30-2022 12:11-0400 Diastolic blood pressure 74 mm[Hg] MD Floyr Robin Work Phone: [facility] 06-30-2022 12:11-0400 Heart rate 71 /min MD Flory Robin Work Phone: [facility] 06-30-2022 12:11-0400 Respiratory rate 18 /min MD Flory Robin Work Phone: [facility] 06-30-2022 12:11-0400 SaO2% (BldA) [Mass fraction] 97 % MD Flory Robin Work Phone: [facility] 06-30-2022 12:11-0400 Systolic blood pressure 133 mm[Hg] MD Flory Robin Work Phone: [facility] 06-30-2022 10:57-0400 Body height 175.26 cm MD Flory Robin Work Phone: [facility] 06-30-2022 10:57-0400 Body weight 68.03 kg MD Flory Robin Work Phone: [facility] 06-14-2022 10:30-0500 Body height 175.26 cm Sebas Jalloh Other [facility] Other 06-14-2022 10:30-0500 Body mass index (BMI) [Ratio] 22.15 kg/m2 Sebas Jalloh Other [facility] Other 06-14-2022 10:30-0500 Body weight 68.04 kg Sebas Jalloh Other [facility] Other 06-14-2022 10:30-0500 Diastolic blood pressure 78 mm[Hg] Sebas Jalloh Other [facility] Other 06-14-2022 10:30-0500 Systolic blood pressure 112 mm[Hg] Sebas Jalloh Other [facility] Other 02-17-2021 10:45-0400 Body height 175.26 cm Sebas Jalloh Other [facility] Other 02-17-2021 10:45-0400 Body mass index (BMI) [Ratio] 21.85 kg/m2 Sebas Jalloh Other [facility] Other 02-17-2021 10:45-0400 Body weight 67.13 kg Sebas Jalloh Other [facility] Other Encounters Encounter Date Encounter Type Care Provider Facility Start: 05-23-2023 End: 05-23-2023 ambulatory [facility] Start: 03-02-2023 End: 03-02-2023 ambulatory [facility] Start: 03-01-2023 End: 03-02-2023 ambulatory Pete Gra Facility:[facility] Start: 03-01-2023 End: 03-01-2023 Lab Drop off Pete Gar [facility] Start: 02-28-2023 End: 03-01-2023 ambulatory Pete Gar Facility:[facility] [place] [facility] Start: 02-28-2023 End: 03-01-2023 ambulatory Pete Gar Facility:[facility] [place] [facility] Start: 10-29-2022 End: 10-29-2022 ambulatory [facility] Start: 10-26-2022 End: 10-26-2022 ambulatory Sebas Jalloh Other [facility] Other Start: 10-26-2022 Telephone encounter Sebas [facility] Start: 10-14-2022 End: 10-14-2022 ambulatory Sebas Jalloh Other [facility] Other Start: 10-14-2022 Telephone encounter Sebas Ditty [facility] Start: 08-16-2022 End: 09-15-2022 ambulatory SHAIKH Denzel LEUNG Facility:[facility] Start: 07-20-2022 End: 07-21-2022 ambulatory ANGELA ESPINO Facility:[facility] Start: 07-19-2022 End: 08-13-2022 ambulatory SHAIKH Denzel LEUNG Facility:[facility] Start: 07-03-2022 ambulatory Pete Gar Facility :[facility] Start: 06-30-2022 Telephone encounter Sebas LEE [facility] Start: 06-30-2022 End: 06-30-2022 ambulatory Sebas Jalloh Facility:[facility] Start: 06-30-2022 End: 06-30-2022 Admission to same day surgery center MD Flory Robin Work Phone: [facility] Work Phone: Start: 06-30-2022 End: 06-30-2022 ambulatory MD Flory Robin Work Phone: [facility] Work Phone: Start: 06-25-2022 End: 06-25-2022 ambulatory Sebas Jalloh Other [facility] Other Start: 06-25-2022 Telephone encounter Sebas LEE [facility] Start: 06-16-2022 End: 07-16-2022 ambulatory SHAIKH Denzel LEUNG Facility:[facility] Start: 06-14-2022 End: 06-14-2022 ambulatory Sebas Jalloh Other [facility] Other Start: 06-14-2022 Patient encounter procedure Sebas IV[facility] Start: 05-19-2022 End: 06-16-2022 ambulatory LINDA H MADHU Facility:[facility] Start: 04-19-2022 End: 05-19-[address] FLORY ROBIN . Facility:[facility] Start: 03-18-2022 End: 04-18-[address] FLORY ROBIN . Facility:[facility] Start: 02-16-2022 End: 03-17-[address] FLORY ROBIN . Facility:[facility] Start: 02-15-2022 End: 02-15-2022 ambulatory Sebas Jalloh Other [facility] Other Start: 02-15-2022 Telephone encounter Sebas Jalloh [facility] Start: 01-17-2022 End: 02-15-[address] FLORY ROBIN . Facility:[facility] Start: 12-17-2021 End: 01-16-[address] FLORY ROBIN . Facility:[facility] Start: 11-16-2021 End: 12-16-[address] FLORY ROBIN . Facility:[facility] Start: 10-16-2021 End: 11-13-2021 ambulatory SHAIKH Denzel [facility]AY[facility] Facility: Start: 08-10-2021 End: 08-10-2021 ambulatory Sebas Jalloh Other [facility] Other Start: 08-10-2021 Telephone encounter Sebas LEE [facility] Start: 04-14-2021 End: 04-14-2021 ambulatory Sebas Jalloh Other [facility] Other Start: 04-14-2021 Telephone encounter Sebas Jalloh [facility] Start: 04-13-2021 End: 04-13-2021 ambulatory Sebas Jalloh Other [facility] Other Start: 04-13-2021 Telephone encounter Sebas Jalloh [facility] Start: 02-17-2021 End: 02-17-2021 ambulatory Sebas Jalloh Other [facility] Other Start: 02-17-2021 Patient encounter procedure Sebas Jalloh [facility] Start: 07-17-2018 End: 07-18-2018 Patient encounter procedure ZULY ABAD Facility:[facility] Start: 08-23-2017 End: 08-24-2017 Patient encounter procedure ZULY ABAD Facility:[facility] Procedures Date Procedure Procedure Detail Performing Clinician Start: 06-30-2022 Colonoscopy MD Flory alvares Work Phone: Cardiac catheter (ph ysical object) Pete Gar Comment on above: July 2012 Carotid endarterectomy [place] Gar Comment on above: July 2012 Colonoscopy Pete Gar Comment on above: 2013 and 2020 History of placement of stent for coronary artery disease Hx of heart artery stent Pete Gar Plan of Treatment Date Care Activity Detail Author Start: 08-29-2023 ambulatory Ambulatory Facility:[facility] Start: 06-30-[address] [facility] aPTT in Platelet poo r plasma by Coagulation assay [facility] INR in Platelet poor plasma by Coagulation assay [facility] Patient Education Ulcerative Colitis (DC) [facility] Work Phone: Immunizations Immunization Date Immunization Notes Care Provider [facility] 02-28-2023 influenza, high dose seasonal, preservative-free Pete Gar [facility] 04-12-2021 influenza virus vacc ine, unspecified formulation Pete Gar [facility] 04-12-2021 pneumococcal polysaccharide vaccine, 23 valent Pete Gar [facility] 08-07-2020 COVID-19 mRNA, Comir lexis (Pfizer) MD Flory Robin Work Phone: [facility] 07-18-2020 COVID-19 mRNA, Comir lexis (Pfizer) MD Flory Robin Work Phone: [facility] 02-20-2019 influenza virus vacc ine, unspecified formulation Pete Gar [facility] 02-05-2019 pneumococcal conjuga te vaccine, 13 valent Pete Gar [facility] Payers Date Payer Category Payer Department [facility] ( and others) [id number] 2022 Unknown [id number] 1958 Department [facility] ( and others) [id number] 1958 Medicare [id number] 1958 Self-pay [id number] 1959 Unknown [id number] 1945 Unknown [id number] 2.16.840.1.484883.3.579.2.647 1945 Unknown [id number] 2.16.840.1.454188.3.579.2.647 1945 Unknown [id number] 2.16.840.1.352521.3.579.2.593 1945 Unknown [id number] 2.16.840.1.727676.3.579.2.593 1945 Unknown [id number] 2.16.840.1.571184.3.579.2.593 1946 Unknown [id number] 2.16.840.1.708899.3.579.2.593 1945 Unknown [id number] 2.16.840.1.791614.3.579.2.593 1946 Unknown [id number] 2.16.840.1.805595.3.579.2.593 1946 Unknown [id number] 2.16.840.1.791297.3.579.2.593 1946 Unknown [id number] 2.16.840.1.700473.3.579.2.593 1946 Unknown [id number] 2.16.840.1.772115.3.579.2.593 1946 Unknown [id number] 2.16.840.1.002624.3.579.2.593 1946 Unknown [id number] 2.16.840.1.354716.3.579.2.593 1946 Unknown [id number] 2.16.840.1.747076.3.579.2.593 1946 Unknown [id number] 2.16.840.1.380288.3.579.2.593 1946 Unknown [id number] 2.16.840.1.704523.3.579.2.727 1945 Unknown [id number] 2.16.840.1.732930.3.579.2.727 1945 Unknown [id number] 2.16.840.1.816163.3.579.2.727 1945 Unknown [id number] 2.16.840.1.079263.3.579.2.727 1945 Unknown [id number] 2.16.840.1.917898.3.579.2.727 Medicare [id number] Unknown [id number] Unknown [id number] Unknown Unknown [id number] 2.16.840.1.918686.3.579.2.531 Social History Date Type Detail Facility Sex Assigned At [facility] Start: 06-30-2022 [facility] Start: 1945 Sex Assigned At Male F [facility] Start: 02-28-2023 Tobacco smoking status Never s moked tobacco (finding) [facility] Tobacco smoking status Never [facility] Goals Date Patient Goal Desired Activity /State Clinical Notes 02-17-2021 to 03-02-2023 Note Date & Type Note Facility 03-02-2023 Note [place] [facility] Subjective Bennie Dennis is a 77 y.o. year old male patient being seen for Follow-up Patient Active Problem List Diagnosis Atrial fibrillation (CMS/HCC) Pericardial effusion Systolic heart failure (CMS/HCC) History of cardiovascular disorder Chronic ischemic heart disease Acute myocardial infarction of anterior wall (CMS/HCC) Coronary arteriosclerosis in squaxin artery History of cardioembolic stroke AICD (automatic cardioverter/defibrillator) present Nonsustained ventricular tachycardia (CMS/HCC) Acute ill-defined cerebrovascular disease Adhesive capsulitis of shoulder DDD (degenerative disc disease), lumbar Hemiparesis (CMS/HCC) Hx of arterial ischemic stroke Hx of heart artery stent Prostate disorder Ulcerative colitis (CMS/HCC) Family History Problem Relation Name Age of Onset Coronary artery disease Brother Diabetes Brother Social History Tobacco Use Smoking status: Former Types: Cigarettes Start date: 1958 Quit date: 1989 Years since quittin.8 Substance Use Topics Alcohol use: Not Currently Drug use: Never HPI Bennie is seen in follow up on ischemic cardiomyopathy, LV aneurysm and stroke. He is s/p stenting of the LAD 07/03/2012. He is s/p ICD placement 08/29/2012. He is on anticoagulation with coumadin. I had raised his INR target to 2.5-3.5 due to excessive spontaneous echocontrast in the ventricle. [facility] follows his INR levels. However on follow up and due to ulcerative colitis and occasional lower GI bleeding, I had asked anticoagulation clinic to reduced the target INR to 2.5 - 3.0. He has not had bleeding since then. Plavix is stopped since June 2013 given 1 year post stent. Since last visit he is doing well with no chest pain and no shortness of breath. He does not have dizziness. He is fairly active. NYHA class I. Review of Systems All other systems reviewed and are negative. Objective Visit Vitals BP 107/62 Pulse 56 Ht 1.676 m (5' 6 ) Wt 64.2 kg (141 lb 9.6 oz) BMI 22.85 kg/m??? Smoking Status Former BSA 1.73 m??? Physical Exam Constitutional: Appearance: He is well-developed. He is not ill-appearing. Comments: Thin appearing HENT: Head: Normocephalic and atraumatic. Nose: Nose normal. Eyes: General: No scleral icterus. Pupils: Pupils are equal, round, and reactive to light. Neck: Thyroid: No thyromegaly. Vascular: No JVD. Cardiovascular: Rate and Rhythm: Normal rate and regular rhythm. Pulses: Radial pulses are 2+ on the right side and 2+ on the left side. Heart sounds: Normal heart sounds. No murmur heard. No friction rub. No gallop. Pulmonary: Effort: Pulmonary effort is normal. No respiratory distress. Breath sounds: Normal breath sounds. No wheezing or rales. Chest: Chest wall: No tenderness. Abdominal: General: Bowel sounds are normal. There is no distension. Palpations: Abdomen is soft. Tenderness: There is no abdominal tenderness. Musculoskeletal: General: No swelling. Cervical back: Neck supple. Comments: Wide-based gait Skin: General: Skin is warm and dry. Neurological: General: No focal deficit present. Mental Status: He is alert and oriented to person, place, and time. Psychiatric: Mood and Affect: Mood normal. Behavior: Behavior is cooperative. Judgment: Judgment normal. Allergies No Known Allergies Medications Current Outpatient Medications: aspirin 81 mg EC tablet, in the morning., Disp: , Rfl: atorvastatin (Lipitor) 80 mg tablet, Take 80 mg by mouth at bedtime., Disp: , Rfl: balsalazide (Colazal) 750 mg capsule, balsalazide 750 mg capsule TAKE 3 CAPSULES BY MOUTH TWICE DAILY, Disp: , Rfl: carvedilol (Coreg) 12.5 mg tablet, Take 1 tablet (12.5 mg) by mouth with breakfast and with evening meal., Disp: 180 tablet, Rfl: 3 sacubitriL-valsartan (Entresto) 24-26 mg tablet, every 12 (twelve) hours., Disp: , Rfl: spironolactone (Aldactone) 25 mg tablet, TAKE ONE-HALF (1/2) TABLET DAILY, Disp: 45 tablet, Rfl: 3 warfarin (Coumadin) 4 mg tablet, warfarin 4 mg tablet, Disp: 90 tablet, Rfl: 1 enoxaparin (Lovenox) 80 mg/0.8 mL syringe, enoxaparin 80 mg/0.8 mL subcutaneous syringe, Disp: , Rfl: Recent Labs Blood testing 07/20/2022: Sodium 140, potassium 4.5, chloride 104, CO2 30.7, glucose 99, BUN 24, serum creatinine 0.98, GFR greater than 60% Hemoglobin 13, hematocrit 39.2, platelets 248. labs from 04/12/2021 CBC stable Renal function normal BUN 27 creatinine 1.16 Liver function normal Blood testing 12/24/2020: Hemoglobin 14.4, platelets 223, potassium 3.7, BUN 15, creatinine 1.0. Imaging and other tests device check 10/29/2022: Normal device function, lead measurements stable, 64 NSVT events. No therapy delivered. device check 09/21/2021: Normal device function, lead measurements stable, 46 NSVT events consistent with VT, self terminating, lasting 3 seconds. Echocardiogram 11/07 (more content not included)... [facility] 07-20-2022 Note Pt is here for 6 mon th pt has no concerns at the time. Review of Systems All other systems reviewed and are negative. [facility] 07-20-2022 Note Cardiology Clinic No te Subjective Bennie Dennis is a 77 y.o. year old male with ulcerative colitis, heart failure reduced ejection fraction status post AICD, nonsustained ventricular tachycardia, atrial fibrillation, and coronary artery disease seen in follow-up. He has been having difficulty control with his ulcerative colitis, having multiple stools in a day. He had a colonoscopy about 3 weeks ago. He notices small amounts of blood in the stool. He feels well from a cardiac standpoint, denies chest pain, palpitations, lightheadedness, or significant lower extremity edema. Patient Active Problem List Diagnosis Atrial fibrillation (CMS/HCC) Pericardial effusion Systolic heart failure (CMS/HCC) History of cardiovascular disorder Chronic ischemic heart disease Acute myocardial infarction of anterior wall (CMS/HCC) Coronary arteriosclerosis in squaxin artery History of cardioembolic stroke AICD (automatic cardioverter/defibrillator) present Nonsustained ventricular tachycardia (CMS/HCC) Acute ill-defined cerebrovascular disease Family History Problem Relation Name Age of Onset Coronary artery disease Brother Diabetes Brother Social History Tobacco Use Smoking status: Former Types: Cigarettes Substance Use Topics Alcohol use: Not Currently HPI 77 yo male presents to clinic for routine f/u for PMH Systolic HF, CAD, NSVT s/p AICD, h/o CVA Update 02/01/2022 Bennie is seen in follow up on ischemic cardiomyopathy, LV aneurysm and stroke. He is s/p stenting of the LAD. He is s/p ICD placement. He is on anticoagulation with coumadin. I had raised his INR target to 2.5-3.5 due to excessive spontaneous echocontrast in the ventricle. [facility] follows his INR levels. Plavix is stopped since June 2013 given 1 year post stent. Since last visit he is doing well with no chest pain and no shortness of breath. Previously he had blood in stool, he was found to have ulcerative colitis and is being treated for that. He has occasional bleeding in stool. Review of Systems Cardiovascular: Negative for chest pain, claudication, dyspnea on exertion, irregular heartbeat, leg swelling, near-syncope, orthopnea, palpitations, paroxysmal nocturnal dyspnea and syncope. Gastrointestinal: Positive for diarrhea and hematochezia. Objective Visit Vitals BP 113/73 Pulse 60 SpO2 94% Smoking Status Former Physical Exam General: Awake, alert, in NAD Pulm: Breath sounds clear to ascultation bilaterally with no wheeze, crackles or rhonchi Cards: Regular rate and rhythm, S1, S2. No S3 or S4 gallop. Murmur: none Abd: Soft, Nontender, physiologic bowel sounds are present Extr: Lower extremity edema: none. Skin: warm, dry, well perfused Neuro: A&Ox3, No gross deficits Allergies No Known Allergies Medications Current Outpatient Medications: aspirin 81 mg EC tablet, in the morning., Disp: , Rfl: balsalazide (Colazal) 750 mg capsule, balsalazide 750 mg capsule TAKE 3 CAPSULES BY MOUTH TWICE DAILY, Disp: , Rfl: carvedilol (Coreg) 12.5 mg tablet, Take 1 tablet (12.5 mg) by mouth with breakfast and with evening meal., Disp: 180 tablet, Rfl: 3 enoxaparin (Lovenox) 80 mg/0.8 mL syringe, enoxaparin 80 mg/0.8 mL subcutaneous syringe, Disp: , Rfl: sacubitriL-valsartan (Entresto) 24-26 mg tablet, every 12 (twelve) hours., Disp: , Rfl: spironolactone (Aldactone) 25 mg tablet, Take 0.5 tablet once daily., Disp: 45 tablet, Rfl: 3 warfarin (Coumadin) 4 mg tablet, warfarin 4 mg tablet, Disp: , Rfl: atorvastatin (Lipitor) 80 mg tablet, Take 80 mg by mouth at bedtime., Disp: , Rfl: Recent Labs 08/05/2022 Sodium 140, potassium 4.5, chloride 104, CO2 30.7, glucose 99, BUN 24, serum creatinine 0.98, GFR greater than 60% Hemoglobin 13, hematocrit 39.2, platelets 248 Imaging and other tests device check 09/21/2021: Normal device function, lead measurements stable, 46 NSVT events consistent with VT, self terminating, lasting 3 seconds. Echocardiogram 11/07/2020: Severely reduced operative systolic function with EF 25% and segmental wall motion abnormalities. No significant valvular dysfunction. Normal right-sided pressures. Echocardiogram 11/07/2020: Severely reduced operative systolic function with EF 25% and segmental wall motion abnormalities. No significant valvular dysfunction. Normal right-sided pressures. ICD interrogation 09/30/2020: Normal function. No events. device check in 09/2018 showed 3 episodes of NSVT. No device therapy. device check in 09/2017 showed 2 episodes of NSVT (22 device total). No device therapy. echocardiogram in 05/06/2014: Global left ventricular systolic function is moderately to severely reduced (Visually estimated EF 30%). Regional wall motion abnormalities. Normal right ventricular systolic function. Doppler studies suggest normal right sided pressures. No significant valvular abnormalities Spontaneous contrast in the left ventric (more content not included)... [facility] [place] 06-30-2022 Procedure note [facility] 06-14-2022 Evaluation note Encounter Date Diagnosis Assessment Notes May, Ulcerative colitis (ICD-10 - K51.90) Continue Balsalazide without change Colonoscopy [facility] Other 11-02-2021 Evaluation note* Encounter Date Diagnosis Assessment Notes Treatment Notes Treatment Clinical Notes Feb, Fecal incontinence (ICD-10 - R15.9) Feb, Sigmoid diverticulosis (ICD-10 - K57.30) Feb, Constipation, unspecified constipation type (ICD-10 - K59.00) Feb, Bleeding (ICD-10 - R58) PATIENT STATES HE DOES STILL NOTICE SOME OF THIS. Feb, Ulcerative colitis (ICD-10 - K51.90) REPEAT COLON IN A FEW MONTHS WILL START MEDICATION. [facility] Other Evaluation + Plan note Future Appointments Appointment Date:08/29/2023 08:00:00 AM Scheduled Provider:Pete Gar MD Location:[facility] Other Evaluation noteNo assessment information available [facility] Work Phone: History and physical note Author Sebas Jalloh [facility] June 30, 2022 11:28am Note Date/Time June 30, 2022 11: 28am [facility] [address] [place] [address] Gastroenterology H&P Signed Patient: Bennie Dennis MR#: [id number] : 1945 Acct:[id number] Age/Sex: 76 / M Adm Date: 3 Loc: Room: Type: [facility] Attending Dr: Sebas Jalloh MD Copies to: MD Flory Bay MD~ Date of Service: 06/30/2022 HISTORY & PHYSICAL: Patient's history with special attention to the cardiovascular, pulmonary systems and the current problem was reviewed with the patient immediately prior to the procedure. Present medications and doses reviewed in the EMR. Allergies and pertinent laboratory tests were also reviewedat this time in the EMR. The physical examination, as below, was then performed. Indication, assessment and HPI: 76-year-old male presents for staging colonoscopy to evaluate his ulcerative colitis, on balsalazide 1.5 g twice daily Family history of GI malignancy? No PHYSICAL EXAMINATION Mouth and Pharynx : Moist mucus membranes, normal dentition Cardiac: Regular rate, regular rhythm Pulmonary: Clear to auscultation bilaterally, no wheezing Neurological: Alert and oriented x3, no focal deficits noted Abdomen: Abdomen soft, non-tender REVIEW OF SYSTEMS Constitutional: Denies malaise, fevers Cardiovascular: Denies chest pain, palpitations Respiratory: Denies shortness of breath, wheezing Gastrointestinal: Per HPI Genitourinary: Denies dysuria, polyuria Musculoskeletal: Denies joint swelling, joint stiffness Neurological: Denies numbness, tingling Integumentary: Denies rashes, skin lesions Endocrine: Denies fatigue, weight loss Written informed consent obtained from the patient. Risks (including but not limited to perforation, infection, bloating, bleeding, need for emergent surgeryand loss of life), benefits and alternatives explained and questions answered. The patient verbalized understanding. Based on history patient is an appropriate candidate for the procedure. Sebas Jalloh MD Documented By: Sebas Jalloh MD 06/30/22 1127 Signed By: <Electronically signed by Sebas Jalloh MD> 06/30/22 1128 [facility] Work Phone: Hisns[facility] general Narrative - Reported* Type Description Date Surgical History PACEMAKER [employer] [facility] Other Histbwd general Narrative - Reported* Type Description Date Surgical History PACEMAKER Surgical History heart stent Hospitalization History see surgical hx [facility] Other Hospital course Narrative No data available for this section [facility] Additional Instructions DISCHARGE INSTRUCTIONS FOR COLONOSCOPY WHAT TO EXPECT: - You may feel full, gassy or cramping after your procedure. In some cases, this may be from a few hours to a day. Walking may help relieve the discomfort. - If you have polyp(s) removed you may note some minor bloody discharge after your first bowel movements. - You should begin to recover from anesthesia within 1 hour of the procedure, however may feel groggy for the next 24 hours. DO's AND DON'Ts: - Call your doctor right away if you have a hard abdomen, severe pain, are passing lots of bright red blood or clots. - Call your doctor if you develop any rashes, hives or difficulty breathing. - Let your doctor know if you have not had a bowel movement by 3 days after your procedure. - If you take 81 mg aspirin for your heart it is safe to resume this medication. - If you take other blood thinner medications your doctor will instruct you when these can safely be resumed. - Do NOT drive for 24 hours. - Do NOT operate machinery such as power tools, lawn mowers, snow blowers, sewing machines, etc. for 24 hours. - Avoid alcoholic beverages and drugs for allergies, nerves, or sleep. - Do NOT stay alone. Do NOT leave your child unattended. - Do NOT make important personal or business decisions or sign any legal documents. - Eat solid foods and drink liquids in smaller amounts than usual until normal appetite returns. If you should experience an upset stomach, liquids high in sugar content (soda, Emanuel-Aid, non-acid juices) are recommended. - You can resume normal activities tomorrow. FOLLOW UP & RECOMMENDATIONS: -Dr. Jalloh's office will schedule a office follow-up visit -Dr. Jalloh's office will call in a new prescription for your balsalazide at a higher dose -Restart your Coumadin tomorrow -Notify the doctor if you have any problems. -Follow up with PCP. -Office number [phone].[facility] Work Phone: Hospital Discharge instructions No data available for this section [facility] No data available for this section [facility] Summary Purpose Family History No Family History Records Found Relationship Condition Age at Onset Recorded Date/T urbano Not Specified Cardiovascular disease Unknown Advance Directives No Advanced Directives Records Found Advance Directive Response Recorded Date/ Time Advance Directives Yes December 12:07pm Chief Complaint and Reason for Visit Chief Complaint Ulcertive Colitis Additional Source Comments (unrecognized sect ion and content) No Status Records FoundNo Status Records FoundNo Status Records FoundNo Status Records FoundNo Status Records Found INFORMATION SOURCE (unrecogn ized section and content) DATE CREATED AUTHOR 08/19/[address] [facility] DATE CREATED AUTHOR AUTHOR'S ORGANIZ ATION 07/31/2022 [facility] DATE CREATED AUTHOR AUTHOR'S ORGANIZ ATION 09/24/2022 [facility] DATE CREATED AUTHOR AUTHOR'S ORGANIZ ATION 03/11/2023 [facility] DATE CREATED AUTHOR AUTHOR'S ORGANIZ ATION 05/23/2023 [facility] REASON FOR VISIT (unrecogniz ed section and content) PATIENT HERE FOR FOLLOW UP C OLONOSCOPY. PATIENT STATES HE IS STILL HAVING PROBLEMS WITH CONSTIPATION AND DIARRHEA. PATIENT STOPPED TAKING THE METAMUCIL.BalsalazideClinicalRefillsRefillsPT HERE FOR FOLLOW UPClinical3 month follow up apptREFILL REQUESTSCRIPT INFO Care Teams (unrecognized sec tion and content) Team Status: Active Member Role Status Dates Flory Robin MD Primary Care Provider Active Team Status: Inactive Member Role Status Dates Flory Robin MD Primary Care Provider Active Sebas Jalloh MD Attending Provider Active FOR RECORDS PERTAINING TO PATIENTS WHO ARE OR HAVE BEEN ENROLLED IN A CHEMICAL DEPENDENCY/SUBSTANCEABUSE PROGRAM, SOME INFORMATION MAY BE OMITTED. This clinical summary was aggregated from multiple sources. Caution should be exercised in using it in the provision of clinical care. This summary normalizes information from multiple sources, and as a consequence, information in this document may materially change the coding, format and clinical context of patient data. In addition, data may be omitted in some cases. CLINICAL DECISIONS SHOULD BE BASED ON THE PRIMARY CLINICAL RECORDS. [facility] [employer] provides no warranty or guarantee of the accuracy or completeness of information in this document.
[2023-06-21 09:32] VITALS: BP 125/67; PULSE 91; RESP 18; TEMP 37.3; O2SAT 93; BMI 21.0
[2023-06-21 10:03] LABS: Basophils Percent Auto 0.4 % (0.2-2.0); Eosinophils Percent Auto 0.4 % (0.9-7.0); Hematocrit 39.5 % (42.0-54.0); Hemoglobin 12.9 g/dL (14.0-18.0); Immature Granulocytes Abs Auto 0.01 10^3/uL (0.00-0.03); Immature Granulocytes Pct Auto 0.2 % (0.0-0.5); Lymphocytes Percent Auto 18.8 % (20.5-60.0); Mean Corpuscular HGB Conc 32.7 g/dL (29.9-35.2); Mean Corpuscular Hemoglobin 30.9 pg (25.9-34.0); Mean Corpuscular Volume 94.5 fL (80.0-94.0); Mean Platelet Volume 10.4 fL (9.5-13.5); Monocytes Absolute Auto 0.5 10^3/uL (0.3-0.8); Monocytes Percent Auto 10.3 % (1.7-12.0); Neutrophils Absolute Auto 3.7 10^3/uL (1.4-6.5); Neutrophils Percent Auto 69.9 % (43.0-75.0); Platelet Count 173 10^3/uL (150-450); Red Blood Count 4.18 10^6/uL (4.70-6.10); Red Cell Distribution Width 12.7 % (11.0-15.0); White Blood Count 5.3 10^3/uL (4.0-11.0)
[2023-06-21 10:22] VITALS: BP 106/51; PULSE 83; RESP 18; O2SAT 99
[2023-06-21 10:31] LABS: Alanine Aminotransferase 38 U/L (16-63); Albumin Globulin Ratio 0.9; Albumin Level 3.8 g/dL (3.4-5.0); Alkaline Phosphatase 104 U/L (46-116); Anion Gap 15.3; Aspartate Amino Transferase 61 U/L (15-37); BUN Creatinine Ratio 24.6; Bilirubin Total 1.1 mg/dL (0.2-1.0); Carbon Dioxide 25.6 mmol/L (21.0-32.0); Chloride 104 mmol/L (98-107); Estimated GFR (African America >60 (>=60); Estimated GFR (Non-African Ame >60 (>=60); Glucose 94 mg/dL (74-106); Potassium 3.9 mmol/L (3.5-5.1); Sodium 141 mmol/L (136-145); Total Protein 7.8 g/dL (6.4-8.2)
[2023-06-21] MEDS: 0.9 % SODIUM CHLORIDE 1,000 ML 999 ML IV (11:13)
[2023-06-21 11:40] VITALS: BP 107/58; PULSE 84; RESP 16; O2SAT 97
[2023-06-21 12:35] VITALS: BP 139/76; PULSE 83; RESP 18; O2SAT 99
--- NOTE | 2023-06-21 18:57 | ED.GENADUL1 ---
HPI - General Adult General Chief complaint: Nausea/Vomiting/Diarrhea Stated complaint: DIARRHE Time Seen by Provider: 06/21/23 09:39 Source: patient Mode of arrival: walk-in Limitations: no limitations History of Present Illness HPI narrative: 77-year-old male to the emergency department with diarrhea. Patient reports that he has had several. He denies any fever, sweats, chills. Denies any abdominal pain. No blood in stool or dark tarry stools. He is here for fluids and evaluation for dehydration. Related Data Home Medications Medication Instructions Recorded Confirmed aspirin 81 mg capsule 81 mg PO DAILY 06/21/23 06/21/23 atorvastatin 80 mg tablet 80 mg PO DAILY 06/21/23 06/21/23 balsalazide 750 mg capsule 2,250 mg PO TID 06/21/23 06/21/23 carvedilol 12.5 mg tablet 12.5 mg PO Q12H 06/21/23 06/21/23 cholecalciferol (vitamin D3) 25 25 mcg PO DAILY 06/21/23 06/21/23 mcg (1,000 unit) capsule (Vitamin D3) multivitamin (Daily Multi-Vitamin 1 tab PO DAILY 06/21/23 06/21/23 tablet) omega-3 fatty acids 1,000 mg PO BID 06/21/23 06/21/23 sacubitril 24 mg-valsartan 26 mg 1 tab PO BID 06/21/23 06/21/23 tablet (Entresto) spironolactone 25 mg tablet 12.5 mg PO DAILY 06/21/23 06/21/23 vit A 7,160 unit-vit C 113 mg-vit tab 06/21/23 E 100 bjht-kccg-tfbrhq tablet warfarin 4 mg tablet 8 mg PO DAILY 06/21/23 06/21/23 Allergies Allergy/AdvReac Type Severity Reaction Status Date / Time No Known Drug Allergies Allergy Verified 06/21/23 09:36 Review of Systems ROS Status of ROS 10 or more systems reviewed and unremarkable except as noted in history and below [facility] Social History Smoking status: Former smoker Exam Narrative Exam Narrative: VITALS: I have reviewed the triage vital signs. GENERAL: Well developed, well appearing adult in no acute distress. NEURO: Alert and oriented. Moves all extremities. Face is symmetric and expressive. EYES: PERRL. No scleral icterus or conjunctival injection. No discharge. HENT: Normocephalic, atraumatic. Hearing is grossly intact. Nares grossly patent and without discharge. Mucous membranes moist. NECK: No JVD. Patient moves neck without restriction. CARDIO: Rhythm regular. Normal rate. No murmur, rub, or gallop. Pulses equal bilaterally in the upper and lower extremity. No lower extremity edema. PULM: Lungs clear to auscultation in all dias. No wheezes, rales, or rhonchi. No conversational dyspnea. No splinting, stridor, or accessory muscle use. GI/: Abdomen is soft and non-tender. Normoactive bowel sounds. EXTREMITIES: Symmetric muscle bulk. No joint swelling. No clubbing, cyanosis, or deformity. SKIN: Warm and dry. Normal turgor. No rash or lesions appreciated. PSYCH: Mood, affect, and interaction is appropriate to the setting. Constitutional Vital Signs, click to edit/add: Last Vital Signs Temp 99.2 F 06/21/23 09:32 Pulse 83 06/21/23 12:35 Resp 18 06/21/23 12:35 BP 139/76 06/21/23 12:35 Pulse Ox 99 06/21/23 12:35 O2 Del Method Room Air 06/21/23 12:35 Course Vital Signs Vital signs: Vital Signs Temperature 99.2 F 06/21/23 09:32 Pulse Rate 91 H 06/21/23 09:32 Respiratory Rate 18 06/21/23 09:32 Blood Pressure 125/67 06/21/23 09:32 Pulse Oximetry 93 L 06/21/23 09:32 Oxygen Delivery Method Room Air 06/21/23 09:32 Temperature 99.2 F 06/21/23 09:32 Pulse Rate 83 06/21/23 12:35 Respiratory Rate 18 06/21/23 12:35 Blood Pressure 139/76 06/21/23 12:35 Pulse Oximetry 99 06/21/23 12:35 Oxygen Delivery Method Room Air 06/21/23 12:35 Medical Decision Making MDM Narrative Medical decision making narrative: Well-appearing 77-year-old male to the emergency department with diarrhea ?2 days. Vital stable, patient is afebrile. His abdominal examination is benign. No nausea or vomiting. Stool sample was obtained and a PCR panel was sent. No risk factors for C. difficile. No indication for imaging of the abdomen at this time. Labwork was performed and is largely unremarkable. Fluids are given. He remains hemodialysis stable. He is appropriate for outpatient follow-up. He'll continue taking yamx-qdb-porjowe meds. Recommended Gatorade or Powerade. Patient is agree with this plan. All questions were answered. The patient was discharged home. Medical Records Medical records reviewed: Yes I reviewed the patient's medical records Lab Data Lab results reviewed: Yes I reviewed the patient's lab results Labs: Lab Results 06/21/23 Range/Units 09:53 WBC 5.3 (4.0-11.0) 10^3/uL RBC 4.18 L (4.70-6.10) 10^6/uL Hgb 12.9 L (14.0-18.0) g/dL Hct 39.5 L (42.0-54.0) % MCV 94.5 H (80.0-94.0) fL MCH 30.9 (25.9-34.0) pg MCHC 32.7 (29.9-35.2) g/dL RDW 12.7 (11.0-15.0) % Plt Count 173 (150-450) 10^3/uL MPV 10.4 (9.5-13.5) fL Neut % (Auto) 69.9 (43.0-75.0) % Lymph % (Auto) 18.8 L (20.5-60.0) % Walton % (Auto) 10.3 (1.7-12.0) % Eos % (Auto) 0.4 L (0.9-7.0) % Baso % (Auto) 0.4 (0.2-2.0) % Neut # (Auto) 3.7 (1.4-6.5) 10^3/uL Lymph # (Auto) 1.0 L (1.2-3.8) 10^3/uL Walton # (Auto) 0.5 (0.3-0.8) 10^3/uL Eos # (Auto) 0.0 (0.0-0.7) 10^3/uL Baso # (Auto) 0.0 (0.0-0.1) 10^3/uL Abs Immat Gran (auto) 0.01 (0.00-0.03) 10^3/uL Imm/Tot Granulo (auto) 0.2 (0.0-0.5) % Sodium 141 (136-145) mmol/L Potassium 3.9 (3.5-5.1) mmol/L Chloride 104 (98-107) mmol/L Carbon Dioxide 25.6 (21.0-32.0) mmol/L Anion Gap 15.3 BUN 28.0 H (7.0-18.0) mg/dL Creatinine 1.14 (0.70-1.30) mg/dL Est GFR ( Amer) >60 (>=60) Est GFR (Non-Af Amer) >60 (>=60) BUN/Creatinine Ratio 24.6 Glucose 94 (74-106) mg/dL Calcium 9.0 (8.5-10.1) mg/dL Total Bilirubin 1.1 H (0.2-1.0) mg/dL AST 61 H (15-37) U/L ALT 38 (16-63) U/L Alkaline Phosphatase 104 (46-116) U/L Total Protein 7.8 (6.4-8.2) g/dL Albumin 3.8 (3.4-5.0) g/dL Globulin 4.0 g/dL Albumin/Globulin Ratio 0.9 Discharge Plan Discharge Chief Complaint: Nausea/Vomiting/Diarrhea Clinical Impression: Diarrhea, Dehydration Patient Disposition: Home, Self-Care Time of Disposition Decision: 12:17 Condition: Good Prescriptions / Home Meds: No Action atorvastatin 80 mg tablet 80 mg PO DAILY balsalazide 750 mg capsule 2,250 mg PO TID carvedilol 12.5 mg tablet 12.5 mg PO Q12H spironolactone 25 mg tablet 12.5 mg PO DAILY warfarin 4 mg tablet 8 mg PO DAILY Entresto 24-26 mg tablet 1 tab PO BID cholecalciferol (vitamin D3) [Vitamin D3] 25 mcg (1,000 unit) capsule 25 mcg PO DAILY omega-3 fatty acids Capsule 1,000 mg PO BID aspirin 81 mg capsule 81 mg PO DAILY multivitamin [Daily Multi-Vitamin] Tablet 1 tab PO DAILY vit A-vit C-vit D-qfwq-yewtiq 7,160-113-100 efbm-yl-rfwv tablet Print Language: Romanian Instructions: Dehydration (ED), Acute Diarrhea (ED) Additional Instructions: Drink fluids as discussed. Powerade or gatorade are better than water. Referrals: Shaikh Garcia MD [Primary Care Provider] - 1 week Discharge Date/Time: 06/21/23 12:37 Stand Alone Forms: Portal Instructions
== END 2023-06-21 12:37 | disposition home or self-care (01) ==
PROVIDERS: Emergency Provider Student in an Organized Health Care Education/Training Program; PCP Internal Medicine
DX: E86.0 Dehydration (principal); R19.7 Diarrhea, unspecified; Z79.82 Long term (current) use of aspirin; Z79.899 Other long term (current) drug therapy; Z79.01 Long term (current) use of anticoagulants; Z87.891 Personal history of nicotine dependence
CPT/HCPCS: 36415; 80053; 85025; 87507; 99283

== ENCOUNTER 2023-07-18 03:17 | Outpatient (RCR) | payer MEDICARE, OTHER, SELFPAY | END 2023-08-16 18:10 | disposition home or self-care (01) | LOC: MM 03:17 | PROVIDERS: PCP Internal Medicine; Visit Provider Internal Medicine | DX: Z51.81 Encounter for therapeutic drug level monitoring (principal); Z79.01 Long term (current) use of anticoagulants | CPT/HCPCS: 85610; G0463 ==

== ENCOUNTER 2023-08-17 00:27 | Outpatient (RCR) | payer MEDICARE, OTHER, SELFPAY | END 2023-09-16 11:28 | disposition home or self-care (01) | LOC: MM 00:27 | PROVIDERS: PCP Internal Medicine; Visit Provider Internal Medicine | DX: Z51.81 Encounter for therapeutic drug level monitoring (principal); Z79.01 Long term (current) use of anticoagulants | CPT/HCPCS: 85610; G0463 ==

== ENCOUNTER 2023-09-19 03:26 | Outpatient (RCR) | payer MEDICARE, OTHER, SELFPAY | END 2023-10-14 10:52 | disposition home or self-care (01) | LOC: MM 03:26 | PROVIDERS: PCP Internal Medicine; Visit Provider Internal Medicine | DX: Z51.81 Encounter for therapeutic drug level monitoring (principal); Z79.01 Long term (current) use of anticoagulants | CPT/HCPCS: 85610; G0463 ==

== ENCOUNTER 2023-10-17 00:29 | Outpatient (RCR) | payer MEDICARE, OTHER, SELFPAY | END 2023-11-16 10:10 | disposition home or self-care (01) | LOC: MM 00:29 | PROVIDERS: PCP Internal Medicine; Visit Provider Internal Medicine | DX: Z51.81 Encounter for therapeutic drug level monitoring (principal); Z79.01 Long term (current) use of anticoagulants | CPT/HCPCS: 85610; G0463 ==

== ENCOUNTER 2023-11-17 00:36 | Outpatient (RCR) | payer MEDICARE, OTHER, SELFPAY | END 2023-12-16 10:16 | disposition home or self-care (01) | LOC: MM 00:36 | PROVIDERS: PCP Internal Medicine; Visit Provider Internal Medicine | DX: Z51.81 Encounter for therapeutic drug level monitoring (principal); Z79.01 Long term (current) use of anticoagulants | CPT/HCPCS: 85610; G0463 ==

== ENCOUNTER 2023-12-19 01:41 | Outpatient (RCR) | payer MEDICARE, OTHER, SELFPAY | END 2024-01-16 23:44 | disposition home or self-care (01) | LOC: MM 01:41 | PROVIDERS: PCP Internal Medicine; Visit Provider Internal Medicine | DX: Z51.81 Encounter for therapeutic drug level monitoring (principal); Z79.01 Long term (current) use of anticoagulants | CPT/HCPCS: 85610; G0463 ==

== ENCOUNTER 2024-01-17 02:41 | Outpatient (RCR) | payer MEDICARE, OTHER, SELFPAY | END 2024-02-16 23:40 | disposition home or self-care (01) | LOC: MM 02:41 | PROVIDERS: PCP Internal Medicine; Visit Provider Internal Medicine | DX: Z51.81 Encounter for therapeutic drug level monitoring (principal); Z79.01 Long term (current) use of anticoagulants ==

== ENCOUNTER 2024-02-17 13:13 | Outpatient (RCR) | payer MEDICARE, OTHER, SELFPAY | END 2024-03-17 23:59 | disposition home or self-care (01) | LOC: MM 13:13 | PROVIDERS: PCP Internal Medicine; Visit Provider Internal Medicine | DX: Z51.81 Encounter for therapeutic drug level monitoring (principal); Z79.01 Long term (current) use of anticoagulants | CPT/HCPCS: 85610; G0463 ==

== ENCOUNTER 2024-03-19 05:54 | Outpatient (RCR) | payer MEDICARE, OTHER, SELFPAY | END 2024-04-17 09:15 | disposition home or self-care (01) | LOC: MM 05:54 | PROVIDERS: PCP Internal Medicine; Visit Provider Internal Medicine | DX: Z51.81 Encounter for therapeutic drug level monitoring (principal); Z79.01 Long term (current) use of anticoagulants | CPT/HCPCS: 85610; G0463 ==

== ENCOUNTER 2024-04-19 01:47 | Outpatient (RCR) | payer MEDICARE, OTHER, SELFPAY | END 2024-05-18 14:33 | disposition home or self-care (01) | LOC: MM 01:47 | PROVIDERS: PCP Internal Medicine; Visit Provider Internal Medicine | DX: Z51.81 Encounter for therapeutic drug level monitoring (principal); Z79.01 Long term (current) use of anticoagulants | CPT/HCPCS: 85610; G0463 ==

== ENCOUNTER 2024-05-21 02:24 | Outpatient (RCR) | payer MEDICARE, OTHER, SELFPAY | END 2024-06-15 13:40 | disposition home or self-care (01) | LOC: MM 02:24 | PROVIDERS: PCP Internal Medicine; Visit Provider Internal Medicine | DX: Z51.81 Encounter for therapeutic drug level monitoring (principal); Z79.01 Long term (current) use of anticoagulants | CPT/HCPCS: 85610; G0463 ==

== ENCOUNTER 2024-06-16 12:36 | Outpatient (RCR) | payer MEDICARE, OTHER, SELFPAY | END 2024-07-13 12:38 | disposition home or self-care (01) | LOC: MM 12:36 | PROVIDERS: PCP Internal Medicine; Visit Provider Internal Medicine | DX: Z51.81 Encounter for therapeutic drug level monitoring (principal); Z79.01 Long term (current) use of anticoagulants; Z78.9 Other specified health status | CPT/HCPCS: 85610; G0463 ==

== ENCOUNTER 2024-07-17 05:43 | Outpatient (RCR) | payer MEDICARE, OTHER, SELFPAY | END 2024-08-15 16:16 | disposition home or self-care (01) | LOC: MM 05:43 | PROVIDERS: PCP Internal Medicine; Visit Provider Internal Medicine | DX: Z51.81 Encounter for therapeutic drug level monitoring (principal); Z79.01 Long term (current) use of anticoagulants | CPT/HCPCS: 85610; G0463 ==

== ENCOUNTER 2024-08-16 04:50 | Outpatient (RCR) | payer MEDICARE, OTHER, SELFPAY | END 2024-09-14 15:36 | disposition home or self-care (01) | LOC: MM 04:50 | PROVIDERS: PCP Internal Medicine; Visit Provider Internal Medicine | DX: Z51.81 Encounter for therapeutic drug level monitoring (principal); Z79.01 Long term (current) use of anticoagulants | CPT/HCPCS: 85610; G0463 ==

== ENCOUNTER 2024-09-16 07:27 | Outpatient (RCR) | payer MEDICARE, OTHER, SELFPAY | END 2024-10-11 14:31 | disposition home or self-care (01) | LOC: MM 07:27 | PROVIDERS: PCP Internal Medicine; Visit Provider Internal Medicine | DX: Z51.81 Encounter for therapeutic drug level monitoring (principal); Z79.01 Long term (current) use of anticoagulants | CPT/HCPCS: 85610; G0463 ==

== ENCOUNTER 2024-09-21 08:22 | Outpatient (OUT) | payer MEDICARE, OTHER, SELFPAY ==
--- OUTSIDE RECORDS SUMMARY | 2024-09-21 08:26 | XMS_ITS | Encounter Summary ---
Author Organization [facility] Address [address] [place] [address] Care Team Providers Care Circular Sawyer Stone Name Role Phone Shaikh PAT Garcia Primary Care Provider Encounter Details Date Type Department Care Team (Late st Contact Info) Description 06/06/2024 Abstract [facility] [address] [place] [address] Unallocated, [facility], [address] [place] [address] Social History Tobacco Use Types Packs/Day Years Used Date Smoking Tobacco: Never Assessed Sex and Gender Information Value Date Recorded Sex Assigned at Not on file Legal Sex Male 11:08 AM EST Gender Identity Not on file Sexual Orientation Not on file documented as of this encounter Plan of Treatment Not on file documented as of this encounter Visit Diagnoses Not on filedocumented in this encounter Care Teams Circular Sawyer Stone Relationship Specialty Start Date End Date Shaikh Garcia MD [address] [place] [address] PCP - General Internal Medicine 07/04/23 documented as of this encounter
--- OUTSIDE RECORDS SUMMARY | 2024-09-21 08:26 | XMS_ITS | Encounter Summary ---
Author Organization [facility] Address [address] [place] [address] Care Team Providers Care Hot Frame Tender Name Role Phone Pete Gar MD Primary Care Provider [phone] Encounter Details Date Type Department Care Team (Late st Contact Info) Description 08/30/2024 Telephone [facility] [address] [place] [address] Ifeoma Melgar MA Social History Tobacco Use Types Packs/Day Years Used Date Smoking Tobacco: Former Cigarettes 1 0 - 1989 Alcohol Use Standard Drinks/Week Comments Not Currently 0 (1 standard drink = 0.6 oz pur e alcohol) [place] Safety & Environment Answer Date Rec orded Fear of Current or Ex-Partner Not on file Emotionally Abused Not on file 06/09/2023 Physically Abused Not on file 06/09/2023 Sexually Abused Not on file 06/09/2023 Physically or Sexually Abused Not on file Sex and Gender Information Value Date Recorded Sex Assigned at Not on file Gender Identity Not on file Sexual Orientation Not on file documented as of this encounter Miscellaneous Notes * Telephone Encounter - Ifeoma Melgar MA - 09/13/2024 4:03 PM EDT Patient's returned my call to confirm she received my message and understands new medication dosage. * Telephone Encounter - Ifeoma Melgar MA - 09/13/2024 3:43 PM EDT LM on patient's 's VM. I asked her to call me back to make sure she received my message. Both doses of carvedilol sent to [facility]. * Telephone Encounter - Ifeoma Melgar MA - 09/04/2024 9:22 AM EDT Spoke with patient's and he's still taking carvedilol 12.5mg bid. She said his BP doesn't go under 100 systolic. Says the other day it was as high as 112. He does complain of being lightheaded all the time . Any suggestions? * Telephone Encounter - Ifeoma Melgar MA - 08/30/2024 10:[address] Gar called with concerns when he saw this patient in the office today. Said his BP was 106/70 HR 62. Patient's ICD has fired a few times lately. He's scheduled for Bi-V ICD upgrade with Dr. Reyse on 09/26/2024. Dr. Gar says patient is lightheaded and frail. He wanted to know if it's ok with you that he cut his carvedilol down to 6.25mg bid. Please advise. Thanks. documented in this encounter Plan of Treatment Upcoming Encounters Date Type Department Care Team (Late st Contact Info) Description 09/26/2024 11:30 AM EDT Hospital Encounter [facility] [place] [facility] [address] [place] [address] Moi Reyes MD [address] [place] [address] [place] (ventricular tachycardia) (CMS/HCC); Other ventricular tachycardia (CMS/HCC) 09/26/2024 11:30 AM EDT - 09/26/2024 1:30 PM EDT Surgery [facility] [address] [place] [phone] Moi Reyes MD [address] [place] [address] Biventricular ICD upgrade [85653 (CPT )] documented as of this encounter Visit Diagnoses Diagnosis VT (ventricular tachycardia) (CMS/HCC) Paroxysmal ventricular tachycardia Other ventricular tachycardia (CMS/HCC) Benign hypertensive heart disease with heart failure (CMS/HCC) VT (ventricular tachycardia) (CMS/HCC) Paroxysmal ventricular tachycardia Other ventricular tachycardia (CMS/HCC) documented in this encounter Care Teams Hot Frame Tender Relationship Specialty Start Date End Date Pete aGr MD [address] [place] [address] PCP - General Family Medicine 03/02/23 documented as of this encounter
--- OUTSIDE RECORDS SUMMARY | 2024-09-21 08:26 | XMS_ITS | Clinical Summary ---
Author Organization [facility] Address [address] [place] [address] Care Team Providers Care City Sanitarian Name Role Phone Shaikh PAT Garcia Primary Care Provider [phone] Encounters Date Type Department Care Team Description 07/04/2024 Refill [facility] [address] [place] [address] Ashley Rios MD from Last 3 Months Social History Tobacco Use Types Packs/Day Years Used Date Smoking Tobacco: Never Assessed Sex and Gender Information Value Date Recorded Sex Assigned at Not on file Legal Sex Male 11:08 AM EST Gender Identity Not on file Sexual Orientation Not on file Plan of Treatment Not on file Insurance [employer] INSURANCE [employer] MEDICARE MEDICARE Care Teams City Sanitarian Relationship Specialty Start Date End Date Shaikh Garcia MD [address] [place] [address] PCP - General Internal Medicine 07/04/23
--- OUTSIDE RECORDS SUMMARY | 2024-09-21 08:27 | XMS_ITS | Encounter Summary ---
Author Organization [facility] Address [address] [place] [address] Care Team Providers Care Airplane Cabin Attendant Name Role Phone Pete Gar MD Primary Care Provider [phone] Reason for Visit * Reason Comments Med Refill Encounter Details Date Type Department Care Team (Late st Contact Info) Description 03/08/2023 Refill [facility] [address] [place] [address] Randal Jacques MD [address] [facility] [address] [facility] [place] [place] [address] Social History Tobacco Use Types Packs/Day Years Used Date Smoking Tobacco: Former Cigarettes 1989 Alcohol Use Standard Drinks/Week Comments Not Currently 0 (1 standard drink = 0.6 oz pur e alcohol) Sex and Gender Information Value Date Recorded Sex Assigned at Not on file Gender Identity Not on file Sexual Orientation Not on file documented as of this encounter Plan of Treatment Upcoming Encounters Date Type Department Care Team (Late st Contact Info) Description 09/26/2024 11:30 AM EDT Hospital Encounter [facility] [address] [place] [address] Moi Reyes MD [address] [facility] [place] [address] [place] (ventricular tachycardia) (CMS/HCC); Other ventricular tachycardia (CMS/HCC) 09/26/2024 11:30 AM EDT - 09/26/2024 1:30 PM EDT Surgery [facility] [address] [place] [address] Moi Reyes MD [address] [place] [address] Biventricular ICD upgrade [70154 (CPT )] documented as of this encounter Visit Diagnoses Not on filedocumented in this encounter Care Teams Airplane Cabin Attendant Relationship Specialty Start Date End Date Pete Gar MD [address] [place] [phone] PCP - General Family Medicine 03/02/23 documented as of this encounter
--- OUTSIDE RECORDS SUMMARY | 2024-09-21 08:27 | XMS_ITS | Referral Summary ---
Author Organization [facility] Address [address] [place] [address] Care Team Providers Care Sales Apprentice Name Role Phone Pete Gar MD Primary Care Provider [phone] Encounters Date Type Department Care Team Description 09/18/2024 Travel 08/30/[address] [address] Ifeoma Melgar MA 08/07/2024 Orders Only [place] [phone] Laya Montano MA VT (ventricular tachycardia) (CMS/HCC); Other ventricular tachycardia (CMS/HCC) 08/07/2024 2:30 PM EDT Office Visit [address] [place] [address] Moi Reyes MD Paroxysmal atrial fibrillation (CMS/HCC) 07/11/[address] [address] Laya Montano MA 07/05/[address] [address] Laya Montano MA from Last 3 Months Allergies No known active allergies Medications Medication Sig Dispensed Refills Start Date End Date Status aspirin 81 mg EC tablet in the morning. Active atorvastatin (Lipitor) 80 mg tablet Take 80 mg by mouth at bedtime. Active balsalazide (Colazal) 750 mg capsule balsalazide 750 mg capsule TAKE 3 CAPSULES BY MOUTH TWICE DAILY Active sacubitriL-valsartan (Entresto) 24-26 mg tablet every 12 (twelve) hours. 07/08/2021 Active warfarin (Coumadin) 4 mg tabletIndications:Pa roxysmal atrial fibrillation (CMS/HCC) warfarin 4 mg tablet 90 tablet 1 11/12/2022 Active spironolactone (Aldactone) 25 mg tabletIndications:Ch ronic systolic heart failure (CMS/HCC) TAKE ONE-HALF (1/2) TABLET DAILY 45 tablet 3 12/01/2023 Active carvedilol (Coreg) 12.5 mg tabletIndications:Ch ronic systolic heart failure (CMS/HCC) Take 1 tablet (12.5 mg) by mouth with breakfast and with evening meal. 180 tablet 3 12/06/2023 Active Creon 36,000-114,000- 180,000 unit capsule,delayed release(DR/EC) capsule Take 1 capsule by mouth. 04/17/2024 Active mesalamine (Lialda) 1.2 gram EC tablet Take by mouth in the morning. 03/01/2024 Active omega-3 (Fish OiL) 60-90-500 mg capsule Take by mouth in the morning. 05/23/2024 Active tamsulosin (Flomax) 0.4 mg 24 hr capsule Take 0.4 mg by mouth in the morning. 05/24/2024 Active cholecalciferol (Vitamin D3) 25 MCG (1000 units) tablet Take by mouth in the morning. 05/23/2024 Active enoxaparin (Lovenox) 30 mg/0.3 mL syringe Inject 30 mg under the skin in the morning. 07/25/2024 Active mirtazapine (Remeron Alisha-Tab) 15 mg disintegrating tablet Take 15 mg by mouth at bedtime. 06/01/2024 Active Daily-Cira, with folic acid, 400 mcg tablet Take 1 tablet by mouth in the morning. 06/06/2024 Active carvedilol (Coreg) 6.25 mg tabletIndications:Be nign hypertensive heart disease with heart failure (CMS/HCC) Take 1 tablet (6.25 mg) by mouth with breakfast and with evening meal. In addition to 3.125mg tablets=9.375mg twice daily) 180 tablet 3 09/13/2024 Active carvedilol (Coreg) 3.125 mg tabletIndications:Be nign hypertensive heart disease with heart failure (CMS/HCC) Take 1 tablet (3.125 mg) by mouth with breakfast and with evening meal. (In addition to 6.25mg tablets=9.375mg twice daily) 180 tablet 3 09/13/2024 Active Active Problems Problem Noted Date Diagnosed Date Urine retention 08/07/2024 Weight gain 08/07/2024 VT (ventricular tachycardia) 08/07/2024 Other ventricular tachycardia 08/07/2024 Blood in stool 05/28/2024 BMI 22.0-22.9, adult 05/28/2024 Chronic anticoagulation 05/28/2024 Dehydration 05/28/2024 Elevated liver enzymes 05/28/2024 Esophageal dysphagia 05/28/2024 Leg swelling 05/28/2024 Loose stools 05/28/2024 Nonsmoker 05/28/2024 Primary biliary cholangitis 05/28/2024 Nutritional deficiency, unspecified 05/25/2024 Difficulty in walking, not elsewhere classified 05/24/2024 Limitation of activities due to disability 05/24 Muscle weakness (generalized) 05/24/2024 Acute kidney failure, unspecified 05/23/2024 Acute respiratory failure with hypoxia Anemia, unspecified 05/23/2024 Benign prostatic hyperplasia without lower urinary tract symptoms 05/23/2024 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 Cognitive communication deficit 05/23/2024 Dysphagia, oral phase 05/23/2024 Flaccid hemiplegia affecting unspecified side Hyperlipidemia, unspecified 05/23/2024 Hypovolemia 05/23/2024 Other specified diseases of pancreas 05/23/2024 Pleural effusion, not elsewhere classified 05/23 Pneumonia, unspecified organism 05/23/2024 Ulcerative (chronic) pancolitis without complica tions 05/23/2024 Unspecified sequelae of cerebral infarction 08/2024 Weakness 05/23/2024 Feeling of incomplete bladder emptying Sepsis, unspecified organism 05/23/2024 Adhesive capsulitis of shoulder 03/02/2023 03/02/2023 DDD (degenerative disc disease), lumbar 03/02/20 23 03/02/2023 Hemiparesis 03/02/2023 03/02/2023 Hx of arterial ischemic stroke 03/02/2023 1 05/02/2022 Hx of heart artery stent 03/02/2023 023 Prostate disorder 03/02/2023 03/02/2023 Ulcerative colitis 03/02/2023 03/02/2023 Atrial fibrillation 02/01/2022 Pericardial effusion 02/01/2022 Systolic heart failure 02/01/2022 Assessment & Plan (09/07/2023 12:59 PM EDT): [facility] II currently euvolemic, without exacerbation, his weight is actually down from last visit- states poor appetite r/t ulcerative colitis. Continue GDMT- ASA, lipitor, coreg, entresto and aldactone Diuretic therapy- none needed currently Monitor daily weights, I&O, fluid restriction 1.5-2L/day, renal function and electrolytes History of cardioembolic stroke 02/01/2022 AICD (automatic cardioverter/defibrillator) pres ent 02/01/2022 Assessment & Plan (09/07/2023 12:57 PM EDT): Device interrogation q 6 months Nonsustained ventricular tachycardia 02/01/2022 Assessment & Plan (09/07/2023 12:58 PM EDT): Continue coreg, no DFTs noted per pt. AICD History of cardiovascular disorder 09/05/2012 Chronic ischemic heart disease 08/15/2012 Acute myocardial infarction of anterior wall Coronary arteriosclerosis in [place] artery 08/15 Assessment & Plan (09/07/2023 12:57 PM EDT): Coronary artery disease is unchanged. Continue current treatment regimen. Regular aerobic exercise. Continue current medications. Cardiac status will be reassessed in 6 months. Acute ill-defined cerebrovascular disease 2012 Immunizations Name Administration Dates Next Due Influenza, High Dose Seasonal, Preservative Free 02/28/2023,04/12/2021 Influenza, Unspecified 04/12/2021,02/20/2019 Influenza, trivalent, adjuvanted 02/20/2019 Pneumococcal Conjugate PCV 13 02/05/2019 Pneumococcal Polysaccharide PPV23 04/12/2021 Unspecified Sars-Cov-2 Vaccination 08/07/2020, Social History Tobacco Use Types Packs/Day Years Used Date Smoking Tobacco: Former Cigarettes 1 0 - 1989 Tobacco Cessation:Counseling Given: Not Answered Alcohol Use Standard Drinks/Week Comments Not Currently 0 (1 standard drink = 0.6 oz pur e alcohol) [place] Safety & Environment Answer Date Rec orded Fear of Current or Ex-Partner Not on file Emotionally Abused Not on file 06/09/2023 Physically Abused Not on file 06/09/2023 Sexually Abused Not on file 06/09/2023 Physically or Sexually Abused Not on file Sex and Gender Information Value Date Recorded Sex Assigned at Not on file Gender Identity Not on file Sexual Orientation Not on file Last Filed Vital Signs Vital Sign Reading Time Taken Comments Blood Pressure 119/64 08/07/2024 2:36 PM EDT Pulse 83 08/07/2024 2:36 PM EDT Temperature - - Respiratory Rate 12 09/07/2023 8:55 AM EDT Oxygen Saturation 99% 08/07/2024 2:36 PM EDT Inhaled Oxygen Concentration - - Weight 59 kg (130 lb) 08/07/2024 2:36 PM EDT Height 167.6 cm (5' 6 ) 08/07/2024 2:36 PM EDT Body Mass Index 20.98 08/07/2024 2:36 PM EDT Plan of Treatment Upcoming Encounters Date Type Department Care Team (Late st Contact Info) Description 09/26/2024 11:30 AM EDT Hospital Encounter [facility] Heart [facility] [place] [facility] [address] [place] [address] Moi Reyes MD [address] [place] [address] [place] (ventricular tachycardia) (CMS/HCC); Other ventricular tachycardia (CMS/HCC) 09/26/2024 11:30 AM EDT - 09/26/2024 1:30 PM EDT Surgery [facility] [address] [place] [address] Moi Reyes MD [address] [place] [address] Biventricular ICD upgrade [03450 (CPT )] Procedures Procedure Name Priority Date/Time Associated Diagnosis Comments ECG 12 LEAD UNIT PERFORMED Routine 08/07/2024 3:33 PM EDT Paroxysmal atrial fibrillation (CMS/HCC) from Last 3 Months Results * ECG 12 lead unit performed (08/07/2024 3:33 PM EDT) Moi Reyes MD ECG ORDERABLES from Last 3 Months Care Teams Sales Apprentice Relationship Specialty Start Date End Date Pete Gar MD [address] [place] [address] PCP - General Family Medicine 03/02/23
--- OUTSIDE RECORDS SUMMARY | 2024-09-21 08:27 | XMS_ITS | Encounter Summary ---
Author Organization [facility] Address [address] [place] [address] Care Team Providers Care Sap Portal Developer Name Role Phone Pete Gar MD Primary Care Provider [phone] Encounter Details Date Type Department Care Team (Latest Contact Info) Description 09/18/2024 Travel Social History Tobacco Use Types Packs/Day Years Used Date Smoking Tobacco: Former Cigarettes 1 0 - 1989 Alcohol Use Standard Drinks/Week Comments Not Currently 0 (1 standard drink = 0.6 oz pur e alcohol) [place] Safety & Environment Answer Date Rec orded [...] Description 09/26/2024 11:30 AM EDT Hospital Encounter [facility] Vascular [place] [facility] [address] [place] [address] Moi Reyes MD [address] [facility] [place] [address] [place] (ventricular tachycardia) (CMS/HCC); Other ventricular tachycardia (CMS/HCC) 09/26/2024 11:30 AM EDT - 09/26/2024 1:30 PM EDT Surgery [facility] Vascular [place] [facility] [address] [facility] [place] [address] Moi Reyes MD [address] [place] [address] Biventricular ICD upgrade [27601 (CPT )] documented as of this encounter Visit Diagnoses Not on filedocumented in this encounter Care Teams Sap Portal Developer Relationship Specialty Start Date End Date Pete Gar MD [address] [place] [address] PCP - General Family Medicine 03/02/23 documented as of this encounter
--- OUTSIDE RECORDS SUMMARY | 2024-09-21 08:27 | XMS_ITS | Clinical Summary ---
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 Continue current treatment regimen. Regular aerobic exercise. Continue current medications. Cardiac status will be reassessed in 6 months. Acute ill-defined cerebrovascular disease 2012 Encounters Date Type Department Care Team Description 09/18/2024 Travel 08/30/[address] [place] [address] Ifeoma Melgar MA 08/07/2024 2:30 PM EDT Office Visit [address] [place] [address] Moi Reyes MD Paroxysmal atrial fibrillation (CMS/HCC) 08/07/2024 Orders Only [address] [place] [address] Laya Montano MA VT (ventricular tachycardia) (CMS/HCC); Other ventricular tachycardia (CMS/HCC) 07/11/[address] [place] [address] Laya Montano MA 07/05/[address] [place] [address] Laya Montano MA from Last 3 Months Immunizations Name Administration Dates Next Due Influenza, High Dose Seasonal, Preservative Free 02/28/2023,04/12/2021 Influenza, Unspecified 04/12/2021,02/20/2019 Influenza, trivalent, adjuvanted 02/20/2019 Pneumococcal Conjugate PCV 13 02/05/2019 Pneumococcal Polysaccharide PPV23 04/12/2021 Unspecified Sars-Cov-2 Vaccination 08/07/2020, Family History Medical History Relation Name Comments Coronary artery disease Brother Diabetes Brother Coronary artery disease Mother Relation Name Status Comments Brother Father Mother Social History Tobacco Use Types Packs/Day Years Used Date Smoking Tobacco: Former Cigarettes 1989 Tobacco Cessation:Counseling Given: Not Answered Alcohol Use Standard Drinks/Week Comments Not Currently 0 (1 standard drink = 0.6 oz pur e alcohol) [place] Safety & Environment Answer Date Rec orded [...] Description 09/26/2024 11:30 AM EDT Hospital Encounter [facility] Vascular Lab [address] [place] [address] Moi Reyes MD [address] [place] [address] [place] (ventricular tachycardia) (CMS/HCC); Other ventricular tachycardia (CMS/HCC) 09/26/2024 11:30 AM EDT - 09/26/2024 1:30 PM EDT Surgery [facility] Vascular Lab [address] [place] [address] Moi Reyes MD [address] [place] [address] Biventricular ICD upgrade [63983 (CPT )] Health Maintenance Due Date Last Done Comments Medicare Annual Wellness (AWV) 1945 Depression Screening 1958 Adult Tetanus 1968 Zoster Vaccines (1 of 2) 1996 Fall Risk Screening 07/13/2011 COVID-19 Vaccine ( season) 2023 08/07/2020, 08/07/2020, 07/18/2020, Additional history exists Influenza Vaccine (Season Ended) 2024 02/28/2023, 04/12/2021, 04/12/2021, Additional history exists Pneumococcal Vaccine: 65+ Years Completed 04/12/2021, 02/05/2019 HIB Vaccines Aged Out No longer eligi ble based on patient's age to complete this topic HPV Vaccines Aged Out No longer eligi ble based on patient's age to complete this topic IPV Vaccines Aged Out No longer eligi ble based on patient's age to complete this topic Meningococcal B Vaccine Aged Out No l onger eligible based on patient's age to complete this topic Meningococcal Vaccine Aged Out No shahzad lakesha eligible based on patient's age to complete this topic Rotavirus Vaccines Aged Out No longer eligible based on patient's age to complete this topic Procedures Procedure Name Priority Date/Time Associated Diagnosis Comments ECG 12 LEAD UNIT PERFORMED Routine 08/07/2024 3:33 PM EDT Paroxysmal atrial fibrillation (CMS/HCC) from Last 3 Months Results * ECG 12 lead unit performed (08/07/2024 3:33 PM EDT) Moi Reyes MD ECG ORDERABLES from Last 3 Months Care Teams Brim Presser Relationship Specialty Start Date End Date Pete Gar MD [address] [place] [address] PCP - General Family Medicine 03/02/23
--- OUTSIDE RECORDS SUMMARY | 2024-09-21 08:27 | XMS_ITS | Clinical Summary ---
Author Organization [facility] Address [address] [place] [address] Care Team Providers Care Network Support Analyst Name Role Phone Flory Robin MD Primary Care Provider Unavailab le Social History Tobacco Use Types Packs/Day Years Used Date Smoking Tobacco: Never Assessed Sex and Gender Information Value Date Recorded Sex Assigned at Not on file Legal Sex Male 11:19 PM EDT Gender Identity Not on file Sexual Orientation Not on file Plan of Treatment Not on file Care Teams Network Support Analyst Relationship Specialty Start Date End Date Flory Robin MD [address] [place] [address] PCP - General 07/26/12
[2024-09-21 09:01] LABS: Basophils Absolute Auto 0.1 10^3/uL (0.0-0.1); Basophils Percent Auto 1.1 % (0.2-2.0); Eosinophils Absolute Auto 0.5 10^3/uL (0.0-0.7); Eosinophils Percent Auto 7.8 % (0.9-7.0); Hematocrit 36.7 % (42.0-54.0); Hemoglobin 12.3 g/dL (14.0-18.0); Immature Granulocytes Abs Auto 0.01 10^3/uL (0.00-0.03); Immature Granulocytes Pct Auto 0.2 % (0.0-0.5); Lymphocytes Absolute Auto 2.3 10^3/uL (1.2-3.8); Mean Corpuscular HGB Conc 33.5 g/dL (29.9-35.2); Mean Corpuscular Hemoglobin 30.7 pg (25.9-34.0); Mean Corpuscular Volume 91.5 fL (80.0-94.0); Mean Platelet Volume 11.1 fL (9.5-13.5); Monocytes Absolute Auto 0.5 10^3/uL (0.3-0.8); Monocytes Percent Auto 8.4 % (1.7-12.0); Neutrophils Absolute Auto 2.7 10^3/uL (1.4-6.5); Neutrophils Percent Auto 44.5 % (43.0-75.0); Platelet Count 193 10^3/uL (150-450); Red Blood Count 4.01 10^6/uL (4.70-6.10); Red Cell Distribution Width 12.9 % (11.0-15.0); White Blood Count 6.2 10^3/uL (4.0-11.0)
[2024-09-21 09:29] LABS: Anion Gap 13.1; BUN Creatinine Ratio 15.9; Calcium 9.7 mg/dL (8.5-10.1); Carbon Dioxide 28.9 mmol/L (21.0-32.0); Chloride 104 mmol/L (98-107); Estimated GFR (African America >60 (>=60 mL/min/1.73m^2); Estimated GFR (Non-African Ame 55 (>=60 mL/min/1.73m^2); Glucose 119 mg/dL (74-106); Sodium 142 mmol/L (136-145)
== END 2024-09-21 08:23 | disposition home or self-care (01) ==
LOC: LAB 08:24
PROVIDERS: PCP Family Medicine; Visit Provider Internal Medicine Cardiovascular Disease
DX: I48.0 Paroxysmal atrial fibrillation (principal)
CPT/HCPCS: 36415; 80048; 85025

== ENCOUNTER 2024-09-27 09:10 | Outpatient (OUT) | payer MEDICARE, OTHER, SELFPAY ==
--- NOTE | 2024-09-27 09:26 | XR_ITS ---
The [address] [address] Patient Name: BENNIE RAYA MRN: [id number] date: 1945 Sex: M Assigned Patient Location: [facility] Current Patient Location: [facility] Accession/Order Number: [id number] Exam Date: 09/27/2024 10:01 Report Date: 09/27/2024 10:10 At the request of: JUAN RAMON SMALL MD Procedure: XR chest 2V PA AND LATERAL CHEST: CLINICAL HISTORY: Sepsis. Pacemaker follow-up. COMPARISON: 10/18/2018 A left-sided pacemaker is visualized. There is now a third lead and there is interval change in appearance of the battery pack. There is no focal parenchymal consolidation, effusion or pneumothorax. The cardiac, hilar and mediastinal silhouettes are within normal limits. There is no vascular congestion. The visualized bony structures are osteopenic. Slight levoscoliotic curvature and degenerative changes are seen at the spine. XR/XR chest 2V IMPRESSION: SATISFACTORY APPEARANCE OF PACEMAKER. NO ACUTE CARDIOPULMONARY ABNORMALITY. Impression dictated by: Martina Armas M.D. 09/27/2024 10:10 AM Dictation Location: [place] [address] Electronically authenticated by: [id number] Y Date: 09/27/2024 10:10
--- OUTSIDE RECORDS SUMMARY | 2024-09-27 09:34 | XMS_ITS | CCD ---
Author Organization [facility] Care Team Providers Care Mark Up Designer Name Role Phone ZULY ABAD AM Admitting Unavailable ZULY ABAD AM Attending Unavailable ROBINDONATO MIRANDA Referring Unavailable ROBIN, DONATO Primary Care Unavailable ZULY ABAD AM Admitting Unavailable ZULY ABAD AM Attending Unavailable ROBIN, DONATO Referring Unavailable ROBIN, DONATO Primary Care Unavailable Sebas Jalloh Unavailable MD Donato Robin Primary Care Provider MD Sebas Jalloh Attending Provider MADHU, LINDA H Attending Unavailable ROBIN ., DR DONATO Azevedo Primary Care Unavailable FAWWAD, LINDA H Admitting Unavailable FAWWAD, LINDA H Attending Unavailable ROBIN ., DR DONATO Azevedo Primary Care Unavailable FAWWAD, LINDA H Admitting Unavailable FAWWAD, LINDA H Attending Unavailable ROBIN ., DR DONATO Azevedo Primary Care Unavailable FAWWAD, LINDA H Admitting Unavailable FAWWAD, LINDA H Attending Unavailable ROBIN ., DR DONATO Azevedo Primary Care Unavailable FAWWAD, LINDA H Admitting Unavailable FAWWAD, LINDA H Admitting Unavailable ROBIN ., DR DONATO Azevedo Primary Care Unavailable FAWWAD, LINDA H Attending Unavailable ROBIN ., DR DONATO Azevedo Primary Care Unavailable FAWWAD, LINDA H Admitting Unavailable FAWWAD, LINDA H Attending Unavailable ROBIN ., DR DONATO Azevedo Primary Care Unavailable FAWWAD, LINDA H Admitting Unavailable FAWWAD, LINDA H Attending Unavailable ROBIN ., DR DONATO Azevedo Primary Care Unavailable FAWWAD, LINDA H Admitting Unavailable FAWWAD, LINDA H Attending Unavailable ROBIN ., DR DONATO Azevedo Primary Care Unavailable FAWWAD, LINDA H Admitting Unavailable CARMEND, LINDA H Attending Unavailable ANGELA ESPINO Admitting Unavailable ROBIN ., DR DONATO Azevedo Primary Care Unavailable ANGELA ESPINO Attending Unavailable KENZIE ANGELA Consulting Unavailable ANGELA ESPINO Attending Unavailable KENZIE, ANGELA Admitting Unavailable ROBIN ., DR DONATO Azevedo Primary Care Unavailable ROBIN ., DR DONATO Azevedo Primary Care Unavailable FAWWAD, LINDA H Admitting Unavailable FAWWAD, LINDA H Attending Unavailable ROBIN ., DR DONATO Azevedo Primary Care Unavailable FAWWAD, LINDA H Admitting Unavailable FAWWAD, LINDA H Attending Unavailable Pete Gar Primary Care Physician Eloisa Hassan Attending Unavailable Mouchli, Mohamad A. Referring Unavailable Mouchli, Mohamad A. Admitting Unavailable Hajdari, Astrit H Attending Unavailable Manav Hassand A. Attending Unavailable Mouchli, Mohamad A. Attending Unavailable Mouchli, Mohamad A. Admitting Unavailable Mouchli, Mohamad A. Attending Unavailable Mouchli, Mohamad A. Admitting Unavailable Mouchli, Mohamad A. Attending Unavailable Mouchli, Mohamad A. Admitting Unavailable Mouchli, Mohamad A. Attending Unavailable Mouchli, Mohamad A. Referring Unavailable Mouchli, Mohamad A. Admitting Unavailable Vicente Flanagan Attending Unavailable Motyrali, Mohamad A. Attending Unavailable Pan Gar Attending Unavailable Pan Gar Admitting Unavailable Duane Lund Consulting Unavailable Kevon Duron, RAHUL Cardona Consulting Unavail able Duane Lund Consulting Unavailable Nazanin Hassanamad AJames Consulting Unavailable Eloisa Hassan AJames Consulting Unavailable MD Eloisa Hassan Consulting Unavailab Eloisa Hunt Consulting Unavailable Cleveland Cuadra Consulting Unavailable Cleveland Cuadra Consulting Unavailable MD Cleveland Cuadra Consulting Unavailable Keyona Tapia Unavailable Unavailable NON STAFF Primary Care Provider UnavailGary Calhoun APRN Emergency Provider [phone] Ross, Pete E. Attending Unavailable Ross, Pete E. Attending Unavailable Ross, Pete E. Admitting Unavailable Cong, Pete E. Attending Unavailable Robbie, DIGESTER OPERATOR HELPERJaky Martins Attending Unavailable Cong, Pete E. Attending Unavailable Ross, Pete E. Attending Unavailable Ross, Pete E. Attending Unavailable Ross, Pete E. Attending Unavailable Ross, Pete E. Attending Unavailable Tena, Gary Attending Unavailable Tena, Gary Admitting Unavailable NON STAFF Primary Care Unavailable RAHUL COLLIER Attending Unavailab le Pete Gar E. Admitting Unavailable Mouchli, Mohamad A. Attending Unavailable Pete Gar E. Attending Unavailable Pan Gar Admitting Unavailable Pan Gar Attending Unavailable PecDuane martins Consulting Unavailable Pecl RAHUL Duron Consulting Unavail able Pecl RAHUL Duron Consulting Unavail able SWETHA COLLIER Attending Unavailable [place], Bashar X Attending Unavailable NONE, XXXX Referring Unavailable Mouchli, Mohamad A. Attending Unavailable Mouchli, Mohamad A. Admitting Unavailable Mouchli, Mohamad A. Attending Unavailable Mouchli, Mohamad A. Attending Unavailable Mouchli, Mohamad A. Attending Unavailable Mouchli, Mohamad A. Admitting Unavailable Mouchli, Mohamad A. Attending Unavailable Mouchli, Mohamad A. Admitting Unavailable Cong, Pete E. Attending Unavailable Mouchli, Mohamad A. Admitting Unavailable Mouchli, Mohamad A. Attending Unavailable Mouchli, Mohamad A. Referring Unavailable Cong, Pete E. Attending Unavailable Cong Pete E. Admitting Unavailable Cong, Pete E. Referring Unavailable Mouchli, Mohamad A. Attending Unavailable Pete Gar E. Attending Unavailable JUAN RAMON SMALL Attending Unavailable ANGELA ESPINO Attending Unavailable JUAN RAMON SMALL Referring Unavailable JUAN RAMON SMALL Referring Unavailable Mouchli, Mohamad A. Admitting Unavailable Mouchli, Mohamad A. Attending Unavailable Mouchli, Mohamad A. Referring Unavailable Mouchli, Mohamad A. Attending Unavailable Cong, Pete E. Attending Unavailable [place]ch[place], Bashar X Admitting Unavailable [place]ch[place], Bashar X Attending Unavailable [place], Bashar X Referring Unavailable Allergies Allergy Classification Reported Allergen(s) Allergy Type Date of Onset Reaction(s) Facility (19 sources) No Known Medication Allergies; Translations: [No Known Medication Allergies] Propensity to adverse reactions (disorder) [facility] Repository Medications Current Medications Medication Drug Class(es) Dates Sig (Normalized) Sig (Original) amylase 344812 unt / lipase 20013 unt / protease [id number] unt delayed release oral capsule (6 sources) Start: 04-17-2024 Creon 36,000 units oral delayed release capsule See Instructions, 200 cap(s), Refill(s) 3, 1 cap with meals and 1 with each snack. contents of capsule may be mixed with soft foods such as applesauce, [facility]/pharmacy #[id number], 172, cm, 04/02/24 13:36:00 EST, Height/Length Dosing, 57, kg, 04/02/24 13:36:00 EST, Weight Dosing Start Date: 04/17/24 Status: Ordered Aspir-81 (10 sources) Aspir-81 Active aspirin 81 mg oral capsule (13 sources) Platelet Aggregation Inhibitor, Nonsteroidal Anti-inflammatory Drug Start: 06-01-2024 take 1 mg by mouth every twenty-four hours aspirin 81 mg oral capsule mg cap(s), Oral, q24hr, Refills(s) 0 Start Date: 06/01/24 Status: Ordered Start: 09-06-2023 take 1 tablet by binta once daily aspirin 81 mg Oral EC Tab 81 mg = 1 tab(s), Oral, Daily, Refills(s) 0, Prophylaxis Start Date: 09/06/23 Status: Ordered Start: 01-21-2021 take 1 capsule by mo [facility] once daily Aspirin 81 mg Capsule Active 81 MG PO Daily January 20, 2021 11:00pm atorvastatin 80 mg oral tablet (20 sources) HMG-CoA Reductase Inhibitor Start: 01-21-2021 atorvastatin 80 mg T ab See Instructions, TAKE 1 TABLET DAILY, # 90 tab(s), Refills(s) 3, Pharmacy: [facility], 167.8, cm, 07/18/23 13:34:00 EDT, Height/Length Dosing, 66.2, kg, 07/18/23 13:34:00 EDT, Weight Dosing Start Date: 08/22/23 Status: Ordered Lipitor Not-Taki ng Atorvastatin Camila cium Active Lipitor Active carvedilol 12.5 mg oral tablet (20 sources) alpha-Adrenergic Wenceslao, beta-Adrenergic Wenceslao Start: 03-02-2023 take 1 tablet by mouth twice daily carvedilol 12.5 mg Tab 12.5 mg = 1 tab(s), Oral, BID, Refills(s) 0, High blood pressure Start Date: 03/02/23 Status: Ordered Start: 02-28-2023 take 1 tablet by binta th twice daily carvedilol 6.25 mg Tab 6.25 mg = 1 tab(s), Oral, BID, Refills(s) 0 Start Date: 02/28/23 Status: Ordered Start: 01-21-2021 take 2 tablets by mo uth twice daily Carvedilol 6.25 mg tablet Active 12.5 MG PO Twice daily January 20, 2021 11:00pm Start: 01-21-2021 take 12.5 mg by mout h twice daily Carvedilol Active 12.5 MG PO Twice daily January 21, 2021 12:00am take 1 tablet by binta th every twelve hours Carvedilol 12.5 MG 1 tablet with food Orally Twice a day Active Carvedilol Activ e cholecalciferol 0.025 mg oral tablet (2 sources) Vitamin D Start: 06-30-2022 take 1 tablet by mouth once daily Cholecalciferol (Vitamin D3) (Vitamin D3) 25 mcg (1,000 unit) Tablet Active 25 MCG PO Daily June 29, 2022 11:00pm ferrous sulfate 325 mg oral tablet (1 source) Start: 05-14-2024 ferrous sulfat e 325 mg Tab 325 mg = 1 tab(s), Oral, BIDWM, # 30 tab(s), Refills(s) 0, Pharmacy: [facility]/pharmacy #[id number], 172, cm, 05/06/24 10:45:00 EST, Height/Length Dosing, 62.6, kg, 05/06/24 10:45:00 EST, Weight Dosing Start Date: 05/14/24 Status: Ordered Fish Oils (3 sources) Start: 06-01-2024 Fish Oil Oral, Refill(s) 0 Start Date: 06/01/24 Status: Ordered Folic Acid (3 sources) Start: 06-01-2024 folic acid Lorena ly, Refills(s) 0 Start Date: 06/01/24 Status: Ordered ICaps AREDS 2 (8 sources) Start: 07-11-2023 ICaps AREDS 2 See Instructions, Refill(s) 0, take 1 orally twice a da, Prophylaxis Start Date: 07/11/23 Status: Ordered Start: 07-11-2023 ICaps AREDS 2 See Instructions, Refill(s) 0, take 1 orally twice a da Start Date: 07/11/23 Status: Ordered levalbuterol 0.21 mg/ml inhalation solution (1 source) beta2-Adrenergic Agonist Start: 05-14-2024 take 0.63 mg by inhalation four times daily levalbuterol 0.63 mg/3 mL Inh Laisha 0.63 mg = 3 mL, Inhalation, QID, # 60 EA, Refills(s) 0, Pharmacy: [facility]/pharmacy #[id number], 172, cm, 05/06/24 10:45:00 EST, Height/Length Dosing, 62.6, kg, 05/06/24 10:45:00 EST, Weight Dosing Start Date: 05/14/24 Status: Ordered mesalamine 1200 mg delayed release oral tablet (18 sources) Aminosalicylate Start: 06-01-2024 take 1 g by mouth once daily mesalamine 1.2 g oral enteric coated tablet gm, tab(s), Oral, Daily, Refill(s) 0 Start Date: 06/01/24 Status: Ordered Start: 03-01-2024 mesalamine 1.2 g oral enteric coated tablet 2.4 gm, 2 tab(s), Refill(s) 0 Start Date: 03/01/24 Status: Ordered Start: 01-18-2024 take 4 tablets by [facility] once daily Mesalamine (Lialda) 1.2 gram tablet,delayed release (DR/EC) Active 4.8 GM PO Daily 120 January 17, 2024 11:00pm Start: 02-17-2021 take 4 tablets by [facility] every twenty-four hours Lialda 1.2 GM 4 tablets Orally Once a day for 30 day(s) Feb, Not-Taking mirtazapine 15 mg disintegrating oral tablet (3 sources) Start: 06-01-2024 take 1 tablet by mouth once daily at bedtime mirtazapine 15 mg oral tablet, disintegrating 15 mg = 1 tab(s), Oral, Once a day (at bedtime), # 30 tab(s), Refills(s) 0, 172, cm, 05/06/24 10:45:00 EST, Height/Length Dosing, 62.6, kg, 05/06/24 10:45:00 EST, Weight Dosing Start Date: 06/01/24 Status: Ordered [facility] Prescription (8 sources) Start: 09-06-2023 [facility] Prescript ion Mini fish oil 1340mg one a day Start Date: 09/06/23 Status: Ordered Multivitamin preparation (1 source) Start: 06-30-2022 take 1 tablet by mouth once daily Multivitamin Active 1 TAB PO Daily June 30, 2022 12:00am Multivitamin Tablet (1 source) Start: 06-30-2022 take 1 tablet by mouth once daily Multivitamin Tablet Active 1 TAB PO Daily June 29, 2022 11:00pm [place]ps 9-Yra-Gpy-Fish Oil (Fish Oil) 60-90-500 mg Capsule (2 sources) Start: 06-30-2022 take 1 capsule by mouth once daily [place]ps 1-Lpk-Dls-Fish Oil (Fish Oil) 60-90-500 mg Capsule Active 1 CAP PO Daily June 29, 2022 11:00pm Start: 06-30-2022 take 1 capsule by mo [facility] once daily [place]ps 2-Fws-Nre-Fish Oil (Fish Oil) 60-90-500 mg Capsule Active 1 CAP PO Daily June 30, 2022 12:00am omeprazole 40 mg delayed release oral capsule (6 sources) Proton Pump Inhibitor Start: 04-01-2024 take 1 capsule by mouth once daily omeprazole 40 mg Cap-DR 40 mg = 1 cap(s), Oral, Daily, # 90 cap(s), Refills(s) 3, Pharmacy: [facility]/pharmacy #[id number], 172, cm, 03/29/24 14:33:00 EST, Height/Length Dosing, 59.4, kg, 03/29/24 14:33:00 EST, Weight Dosing Start Date: 04/01/24 Status: Ordered One-A-Day Men's Health Formula (12 sources) Start: 09-06-2023 take 1 tablet by mouth once daily One-A-Day Men's Health Formula 1 tab(s), Oral, Daily, Refill(s) 0, Prophylaxis Start Date: 09/06/23 Status: Ordered Start: 09-06-2023 take 1 tablet by binta th once daily One-A-Day Men's Health Formula 1 tab(s), Oral, Daily, Refill(s) 0 Start Date: 09/06/23 Status: Ordered PreserVision AREDS (3 sources) Start: 05-15-2024 PreserVision A REDS See Instructions, Refill(s) 0, take twice daily Start Date: 05/15/24 Status: Ordered sacubitril 24 mg / valsartan 26 mg oral tablet (20 sources) Angiotensin 2 Receptor Wenceslao Start: 01-21-2021 take 1 tablet by mouth twice daily Entresto 24 mg-26 mg oral tablet 1 tab(s), Oral, BID, Refill(s) 0, ON HOLD UNTIL SEEN BY [facility] D/C 05/14/24 Start Date: 02/28/23 Status: Ordered ENTRESTO 2-26 mg Active ENTRESTO Active spironolactone 25 mg oral tablet (20 sources) Aldosterone Antagonist Start: 03-01-2023 take 0.5 tablet by mouth once daily spironolactone 25 mg Tab 0.5 tab, Oral, Daily, ON HOLD UNTIL SEEN BY [facility] D/C 05/14/24, Refills(s) 0, diuretic/water pill Start Date: 03/01/23 Status: Ordered Start: 06-30-2022 Spironolactone 25 mg tablet Active 12.5 MG PO Daily June 29, 2022 11:00pm Start: 06-30-2022 take 12.5 mg by mout h once daily Spironolactone Active 12.5 MG PO Daily June 30, 2022 12:00am take 0.5 tablet by m outh once daily Spironolactone 25 MG 1/2 tablet Orally Once a day Active Spironolactone 2 5 MG 1 tablet Orally Active tamsulosin hydrochloride 0.4 mg oral capsule (1 source) alpha-Adrenergic Wenceslao Start: 06-07-2024 take 1 capsule by mouth once daily tamsulosin 0.4 mg Cap 0.4 mg = 1 cap(s), Oral, Daily, Refills(s) 0 Start Date: 06/07/24 Status: Ordered ursodiol 500 mg oral tablet (2 sources) Bile Acid Start: 04-09-2024 take 1 tablet by mouth twice daily at mealtime ursodiol 500 mg Tab 500 mg = 1 tab(s), Oral, BID, with food, # 180 tab(s), Refills(s) 1, Pharmacy: [facility]/pharmacy #[id number], 172, cm, 04/02/24 13:36:00 EST, Height/Length Dosing, 57, kg, 04/02/24 13:36:00 EST, Weight Dosing Start Date: 04/09/24 Status: Ordered Stelara (2 sources) Interleukin-12 Antagonist, Interleukin-23 Antagonist Start: 05-01-2024 Stelara Refills(s) 0 Start Date: 05/01/24 Status: Ordered Vitamin D3 10,000 intl units oral capsule (4 sources) Start: 05-06-2024 take 1 capsule by mouth once daily Vitamin D3 10,000 intl units oral capsule 250 mcg = 1 cap(s), Oral, Daily, Refills(s) 0 Start Date: 05/06/24 Status: Ordered Vitamin D3 1000 intl units (25 mcg) Tab (8 sources) Start: 09-06-2023 take 1 tablet by mouth once daily Vitamin D3 1000 intl units (25 mcg) Tab 25 mcg = 1 tab(s), Oral, Daily, Refills(s) 0, Prophylaxis Start Date: 09/06/23 Status: Ordered Start: 09-06-2023 [facility] Vitamin D3 1000 intl units (25 mcg) Tab 25 mcg = 1 tab(s), Oral, Daily, Refills(s) 0 Start Date: 09/06/23 Status: Ordered warfarin sodium 4 mg oral tablet (20 sources) Vitamin K Antagonist Start: 01-21-2021 take 1 tablet by mouth once daily warfarin 4 mg Tab 4 mg = 1 tab(s), Oral, Daily, Managed per [facility] Medication Management, Refills(s) 0 Start Date: 02/28/23 Status: Ordered take 2 tablets by [facility] every twenty-four hours Warfarin Sodium 4 MG 2 tablet Orally Once a day Active Warfarin Sodium Active Completed/Discontinued Medications Medication Drug Class(es) Dates Sig (Normalized) Sig (Original) Albuterol (Eqv-Ventolin HFA) 90 mcg/inh inhalation aerosol (4 sources) Start: 05-14-2024 take 8 g by inhalation every six hours Albuterol (Eqv-Ventolin HFA) 90 mcg/inh inhalation aerosol 180 mcg, 2 inh, Inhalation, q6hr, 8 gm, Refill(s) 0, [facility]/pharmacy #[id number], 172, cm, 05/06/24 10:45:00 EST, Height/Length Dosing, 62.6, kg, 05/06/24 10:45:00 EST, Weight Dosing Start Date: 05/14/24 Status: Ordered balsalazide disodium 750 mg oral capsule (12 sources) Aminosalicylate Start: 11-21-2023 End: 01-18-2024 take 1 capsule by mouth three times daily Balsalazide 750 mg capsule Discontinued 2250 MG PO Three times daily 270 November 20, 2023 11:00pm January 18, 2024 2:22pm Start: 02-28-2023 take 3 capsules by m outh three times daily balsalazide 750 mg oral [...] a day for 30 day(s) Mar, Active ipratropium bromide 0.2 mg/ml inhalation solution (1 source) Anticholinergic Start: 05-14-2024 take 60 doses by inhalation four times daily ipratropium 0.02% Inh Alisha 2.5 mL 500 mcg, 2.5 mL, NEB, QID, 60 EA, Refill(s) 0, [facility]/pharmacy #[id number], 172, cm, 05/06/24 10:45:00 EST, Height/Length Dosing, 62.6, kg, 05/06/24 10:45:00 EST, Weight Dosing Start Date: 05/14/24 Status: Ordered Nebulizer Machine (3 sources) Start: 05-17-2024 Nebulizer Machine Nebulizer Machine, See Instructions, 1 EA, 0, Nebulizer Machine, Supply Start Date: 05/17/24 Status: Ordered predniSONE 5 mg oral tablet (9 sources) Start: 02-17-2021 predniSONE 5 MG 20MG FOR 1 WEEK, 15 MG FOR 1 WEEK, 10 MG FOR 1 WEEK, 5 MG FOR 1 WEEK Orally Once a day for 28 days Feb, Not-Taking Problems Active Problems Problem Classification Problem Date Documented Da te Episodic/Chronic Acute and unspecified renal failure (1 source) Acute renal failure syndrome; Translations: [Acute kidney failure, unspecified] Onset: 5 Episodic Cardiac dysrhythmias (20 sources) Unspecified atrial fibrillation; Translations: [Paroxysmal atrial fibrillation] Onset: 8 02-28-2023 Chronic Conduction disorders (6 sources) Presence of automatic (implantable) cardiac defibrillator; Translations: [Encounter for checking and testing of cardiac pacemaker pulse generator [battery]] Onset: 2 Chronic Congestive heart failure; nonhypertensive (13 sources) Chronic systolic (congestive) heart failure; Translations: [Chronic systolic heart failure] Onset: 2 Chronic Comment on above: Noted in rafita downing ort, 05/07/2024 pulm consult, 05/14/2024 dc summary, 05/06/2024 H&P. Added per outpatient CDI policy based on: Chronic systolic (congestive) heart failure (I50.22) Persistent (Historical Claim) September 07, 2023 [facility] Heart Heart Failure, Except End-Stage and Acute (v28) Heart Congestive Heart Failure (v24) 05/07/2024 pulm consult-Has been on steroids for a few weeks and is immunocompromised. History of Present Illness Pt is a 78y M with past medical history significant for CAD s/p ADARSH, chronic HFrEF s/p AICD, PAF on coumadin, CVA, pancreatic insufficiency, ulcerative colitis, BPH, and HLD who presented to the ED on 05/06 with complaints of generalized weakness for the past month or two 05/14/2024 dc summary- chronic systolic heart failure 05/06/2024 H&P-78 yr old male w/ PMH of: CAD, chronic systolic HF w/ AICD, PAF, HTN, HLD, pancreatitis insuff., primary biliary cholangitis, UC, BPH, history of CVA w/ hemiparesis. Coronary atherosclerosis and other heart disease (3 sources) Coronary atherosclerosis; Translations: [Atherosclerotic heart disease of zuni coronary artery without angina pectoris] Onset: 5 Chronic Deficiency and other anemia (1 source) Anemia; Translations: [Anemia, unspecified] Onset: 5 Episodic Disorders of lipid metabolism (1 source) Hyperlipidemia; Translations: [Hyperlipidemia, unspecified] Onset: 5 Chronic Diverticulosis and diverticulitis (11 sources) Diverticulosis of sigmoid colon; Translations: [Diverticulosis of large intestine without perforation or abscess without bleeding] Onset: 1 Resolved: 1 Chronic Essential hypertension (7 sources) Essential hypertension; Translations: [Essential (primary) hypertension] Onset: 5 Chronic Comment on above: Noted in 05/06/2024 H &P-78 yr old male w/ PMH of: CAD, chronic systolic HF w/ AICD, PAF, HTN, HLD, pancreatitis insuff., primary biliary cholangitis, UC, BPH, history of CVA w/ hemiparesis. Added per outpaitent CDI policy. Fluid and electrolyte disorders (1 source) Hypokalemia; Translations: [Hypokalemia] Onset: 5 Episodic Gastrointestinal hemorrhage (16 sources) Melena; Translations: [Melena] Onset: 4 Episodic Genitourinary symptoms and ill-defined conditions (6 sources) Retention of urine; Translations: [Retention of urine, unspecified] Onset: 5 Episodic Heart valve disorders (1 source) Presence of prosthetic heart valve; Translations: [PRESENCE OF PROSTHETIC HEART VALVE] Onset: 2 Chronic Hyperplasia of prostate (6 sources) Benign prostatic hypertrophy without outflow obstruction; Translations: [Benign prostatic hyperplasia without lower urinary tract symptoms] Onset: 5 Chronic Hypertension with complications and secondary hypertension (6 sources) Hypertensive heart disease with congestive heart failure 05-23-2024 Chronic Comment on above: Linnked per outpatie nt CDI policy. Late effects of cerebrovascular disease (1 source) Sequelae of cerebral infarction; Translations: [Unspecified sequelae of cerebral infarction] Onset: 5 Chronic Malaise and fatigue (6 sources) Asthenia; Translations: [Weakness] Onset: 5 Episodic Other aftercare (8 sources) Encounter for therapeutic drug level monitoring; Translations: [ENCOUNTER FOR THERAPEUTIC DRUG LEVEL MONITORING] Onset: 9 Episodic Other aftercare (2 sources) supervisor intermediates (current) use of anticoagulants; Translations: [SPANISH TUTOR (CURRENT) USE OF ANTICOAGULANTS] Onset: 9 Episodic Other aftercare (15 sources) Long-term current use of anticoagulant; Translations: [supervisor intermediates (current) use of anticoagulants] Onset: 4 Episodic Other aftercare (1 source) Long-term current use of drug therapy; Translations: [Other long distance operator (current) drug therapy] Onset: 5 Episodic Other circulatory disease (16 sources) History of cerebrovascular accident 02-28-2023 Episodic Other circulatory disease (1 source) Low blood pressure; Translations: [Hypotension, unspecified] Onset: 5 Episodic Other connective tissue disease (16 sources) Adhesive capsulitis of shoulder 02-28-2023 Episodic Other connective tissue disease (2 sources) Disorder of soft tissue; Translations: [Other specified soft tissue disorders] Onset: 5 Episodic Other connective tissue disease (9 sources) Swelling of lower limb 05-01-2024 Episodic Other diseases of kidney and ureters (1 source) Urinary tract obstruction; Translations: [Other obstructive and reflux uropathy] Onset: 5 Episodic Other gastrointestinal disorders (10 sources) Incontinence of feces; Translations: [Full incontinence of feces] Episodic Other gastrointestinal disorders (10 sources) Constipation; Translations: [Constipation, unspecified] Episodic Other gastrointestinal disorders (2 sources) Dysphagia; Translations: [Other dysphagia] Onset: 4 Episodic Other gastrointestinal disorders (2 sources) Abnormal feces; Translations: [Other fecal abnormalities] Onset: 4 Episodic Other gastrointestinal disorders (14 sources) Esophageal dysphagia 03-21-2024 Episodic Other gastrointestinal disorders (14 sources) Loose stool 03-21-2024 Episodic Other gastrointestinal disorders (1 source) Diarrhea; Translations: [Diarrhea, unspecified] Onset: 5 Episodic Other liver diseases (11 sources) Primary biliary cholangitis; Translations: [Primary biliary cirrhosis] Onset: 5 Chronic Other liver diseases (2 sources) Enzyme level - finding; Translations: [Abnormal levels of other serum enzymes] Onset: 4 Episodic Other liver diseases (14 sources) Elevated liver enzymes level 03-21-2024 Episodic Other lower respiratory disease (1 source) Interstitial lung disease; Translations: [Interstitial pulmonary disease, unspecified] Onset: 5 Chronic Other lower respiratory disease (1 source) Abnormal findings on diagnostic imaging of lung; Translations: [Other nonspecific abnormal finding of lung field] Onset: 5 Episodic Other male genital disorders (16 sources) Disorder of prostate 02-28-2023 Episodic Other nutritional; endocrine; and metabolic disorders (1 source) Other symptoms and signs concerning food and fluid intake; Translations: [Clinical finding (finding)] Onset: 4 Episodic Other nutritional; endocrine; and metabolic disorders (3 sources) Weight increased 07-05-2024 Episodic Other screening for suspected conditions (not mental disorders or infectious disease) (1 source) Coag./bleeding tests abnormal; Translations: [Abnormal coagulation profile] Onset: 5 Episodic Other upper respiratory infections (1 source) Acute sinusitis, unspecified; Translations: [Acute sinusitis, unspecified] Onset: 5 Episodic Pancreatic disorders (not diabetes) (12 sources) Disorder of pancreas; Translations: [Other specified diseases of pancreas] Onset: 5 Episodic Paralysis (16 sources) Hemiparesis 02-28-2023 Chronic Peripheral and visceral atherosclerosis (16 sources) Arteriosclerotic vascular disease 02-28-2023 Chronic Pleurisy; pneumothorax; pulmonary collapse (1 source) Pleural effusion; Translations: [Pleural effusion, not elsewhere classified] Onset: 5 Episodic Pneumonia (except that caused by tuberculosis or sexually transmitted disease) (1 source) Pneumonia; Translations: [Pneumonia, unspecified organism] Onset: 5 Episodic Regional enteritis and ulcerative colitis (20 sources) Ulcerative colitis; Translations: [Ulcerative colitis, unspecified, without complications] Onset: 1 Resolved: 1 Chronic Respiratory failure; insufficiency; arrest (adult) (1 source) Acute respiratory failure; Translations: [Acute respiratory failure with hypoxia] Onset: 5 Episodic Shock (1 source) Shock; Translations: [Shock, unspecified] Onset: 5 Episodic Spondylosis; intervertebral disc disorders; other back problems (16 sources) 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 Normal [facility] 36 LM on patient's 's VM. I asked her to call me back to make sure she received my message. Both doses of carvedilol sent to [facility]. Normal [facility] Provider Letteron 09-13-2024 Provider Letter Provider Letter September 13, 2024 BENNIE DENNIS [address] [place] [id number] : 1945 [place], We have been trying to reach you with no success. It is important that you return our call regarding rescheduling your previous appointment on October [address] Hassan. Please call the office to reschedule your appointment upon receiving this letter. Also, at the time of your call, please provide us with your current information. Thank you for your prompt attention to this matter. Sincerely, [facility] [phone] [facility] 09-04-2024 36 Spoke with patient's and he's still taking carvedilol 12.5mg bid. She said his BP doesn't go under 100 systolic. Says the other day it was as high as 112. He does complain of being lightheaded all the time . Any suggestions? [facility] 08-30-[address] Gar called with concerns when he saw this patient in the office today. Said his BP was 106/70 HR 62. Patient's ICD has fired a few times lately. He's scheduled for Bi-V ICD upgrade with Dr. Small on 09/26/2024. Dr. Gar says patient is lightheaded and frail. He wanted to know if it's ok with you that he cut his carvedilol down to 6.25mg bid. Please advise. Thanks. [facility] Family Medicine Office/Clini c Noteon 08-30-2024 Family Medicine Office/Clinic Note Family Medicine Office/Clinic Note Chief Complaint 6m Follow Up The patient complains of dizziness, particularly in the morning after taking medication. HPI Staff 6m follow up to ASCVD, Ulcerative Colitis, A fib & diaphragmatic hernia. Is getting pacemaker replaced next month. Has been experiencing dizziness for the past couple weeks. History of Present Illness - The patient is a 79-year-old male presenting with dizziness. - Dizziness noted in morning post-medication, prompting concern over medication-induced hypotension. - Blood pressure 100/60 raises hypotension concerns. - History of cardiovascular conditions, including ASCVD and heart failure. - Overexertion linked to pacemaker/defibrillato r events. - Fluid in lungs noted upon examination. - Independent in daily activities; advised against driving due to possible device malfunction. Review of Systems PHQ Score Initial Depression Screen Score: 0 SCORE Physical Exam Vitals & Measurements T: 36.8 ???C(Tympanic) HR: 62(Peripheral) RR: 18 BP: 106/64 SpO2: 97% HT: 172 cm HT: 68 in WT: 61.1 kg WT: 134.702 lb BMI: 20.65 General: alert, no acute distress ENMT: oral mucosa moist Cardiovascular: Regular rate and rhythm, normal peripheral perfusion Respiratory: Lungs with some fluid, respirations non labored Extremities: no deformity, no trauma Neurological: oriented x 4, level of consciousness appropriate for age, CN II-XII intact, motor strength equal & normal bilaterally, speech normal Abdomen: Soft, Non-tender, Non-distended, + Bowel sounds Assessment/Plan 1. Chronic systolic heart failure (I50.22: Chronic systolic (congestive) heart failure) Denies shortness of breath. Follows with cardiology Having his pacemaker changed in a month Still very dizzy Concerned with the low blood pressure. 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 I agree with keeping the patient on Entresto. 2. Hemiparesis (G81.90: Hemiplegia, unspecified affecting unspecified side) Stable 3. Hypertensive CHF (congestive heart failure) (I11.0: Hypertensive heart disease with heart failure) Blood pressure is on the lower side at this time. 4. ASCVD (arteriosclerotic cardiovascular disease) (I25.10: Atherosclerotic heart disease of zuni coronary artery without angina pectoris) Continue on aspirin and statin. 5. Esophageal dysphagia (R13.19: Other dysphagia) Continue seeing GI for this. Encouraged hydration 6. Hypertension (I10: Essential (primary) hypertension) - Consider adjusting medication to address hypotension. 7. Nonsmoker (Z78.9: Other specified health status) Please continue not to smoke 8. BMI 20.0-20.9, adult (Z68.20: Body mass index [BMI] 20.0-20.9, adult) BMI education added Ordered: Body Mass Index (BMI) documented 3008F Current tobacco non-user 1036F Depression Screening Negative 3352F Discharge medications reconciled with current medications in outpatient record 1111F Influenza immunization status assessed 1030F Medication list documented in medical record 1159F Most recent diastolic blood pressure <80 mm Hg 3078F Patient screen for fall risk: no falls in last year or 1 fall with no injury in last year 1101F Review of all meds by a prescribing practitioner or clinical pharmacist documented in EHR 1160F Systolic BP <130 mm Hg (Most Recent) 3074F 9. Dizziness and giddiness (R42) - Review medication dosage, reduce Carvedilol. - If no improvement will send to physical therapy. 10. Bradycardia, unspecified (R00.1) - Stable today. Consider dropping the Coreg to the 6.25 - 79-year-old male with history of atherosclerotic heart disease presenting with dizziness. - Possible medication-induced hypotension. - Cardiac device events linked to exertion. - Attention required for possible heart failure exacerbation. Fluid In Lungs - Monitor respiratory status, adjust heart failure medication if necessary. During today's consultation, I discussed the possible link between the patient's morning dizziness and his current medication regimen, noting his low blood pressure readings. We considered a reduction in Carvedilol dosage to mitigate hypotensive symptoms. I expressed concerns regarding his cardiac device events and emphasized the importance of communicating with Dr. Abreu about the pacemaker/defibrillato r functionality and need for a replacement due to digital camera technician reported battery shortcomings. I highlighted the risks of driving in relation to potential device activation. Lastly, I noted the presence of fluid in the patient's lungs, discussing ongoing monitoring of his respiratory condition and likely need to adjust heart failure medications. All planned changes and monitoring strategies were outlined clearly to ensure patient understanding and compliance. Follow-up No qualifying data available Problem List/Past Medical History Ongoing (more content not included)... Normal [facility] Comment on above: Result Comment: Elec tronically Signed By: Cong STEWART, Pete Bell.br\Date and Time Signed: 08/30/24 10:28 EDT Telephoneon 08-30-2024 Telephone [id number] Bennie Dennis 1945 M Date Provider Department Center 08/30/2024 Vianey8-CINDY LEUNG Family History Problem Relation Age of Onset Coronary artery disease Mother Coronary artery disease Brother Diabetes Brother Family Status - Relation Status Age at Mother Father Brother [facility] Office Visiton 08-07-2024 Follow-up visit [id number] Bennie Dennis 1945 M Date Provider Department Center 08/07/2024 JUAN RAMON PATEL ROBERTO [facility] Family History Problem Relation Age of Onset Coronary artery disease Mother Coronary artery disease Brother Diabetes Brother Family Status - Relation Status Age at Mother Father Brother Level of Service:67910 [place] OFFICE/OUTPATIENT NEW MODERATE MDM 45 MINUTES Normal [facility] Orders Onlyon 08-07-2024 Orders Only [id number] Bennie Dennis 1945 M Date Provider Department Center 08/07/2024 ROMÁN GREEN CARD [facility] Family History Problem Relation Age of Onset Coronary artery disease Mother Coronary artery disease Brother Diabetes Brother Family Status - Relation Status Age at Mother Father Brother Normal [facility] Pulmonary Function Studieson 07-23-2024 Pulmonary Function Studies Pulmonary Function Studies PULMONARY FUNCTION TEST: 07/11/2024 REFERRING PHYSICIAN: Pooja Stephens M.D. REASON FOR TESTING: [age]-year-old male former smoker 2 to 3 packs a day for 30 years, quit in 1989. Pulmonary function test is performed to evaluate for pulmonary infiltrates. Spirometry shows normal FEV1 at 89% predicted. Forced vital capacity is reduced at 71% predicted. FEV1/forced vital capacity ratio is normal at 93%. Lung volume testing shows reduced total lung capacity at 72% predicted. Residual volume is normal at 88% predicted. RV/total lung capacity ratio is borderline increased at 47%. The patient could not complete testing and could not perform lung diffusion capacity. IMPRESSION: There is mild restrictive lung disease. The lung diffusion capacity could not be measured due to patient factors. READ BY: Pooja Stephens M.D. ca Dictated: 07/17/2024 [id number] Transcribed: 07/18/2024 [facility] Comment on above: Result Comment: Elec tronically Signed By: Angelo STEWART, Pooja X\.br\Date and Time Signed: 07/23/24 14:[address] Chest w/o High Resolution on 07-11-2024 CT Chest w/o High Resolution Exam Date/Time: 07/11/2024 15:09 EDT Reason for Exam: J84.9;Interstitial lung disease Report IMPRESSION: INTERVAL RESOLUTION OF BILATERAL PULMONARY GROUNDGLASS OPACITIES. EMPHYSEMA. SINCE EMPHYSEMA ON PULMONARY CT IS AN INDEPENDENT RISK FACTOR FOR LUNG CANCER, RECOMMEND PATIENT BE EVALUATED FOR CT LUNG SURVEILLANCE PROGRAM. CT HIGH-RESOLUTION OF THE CHEST WITHOUT INTRAVENOUS CONTRAST MEDIUM HISTORY: INTERSTITIAL LUNG DISEASE, J84.9 TECHNICAL FACTORS: High-resolution CT imaging of the chest was obtained and formatted as 5 mm contiguous axial images from the thoracic inlet through the adrenal glands. Sagittal and coronal reconstructions obtained during postprocessing. In addition,supine and prone 1 mm high-resolution images of the chest were obtained. Intravenous contrast medium: None. Comparison: CT chest, May 06, 2024. FINDINGS: Right lung: No nodules, masses, consolidation, pleural effusion, pneumothorax. Emphysema. Previously described areas of groundglass opacity nearly resolved with trace remnants visualized in dependent right upper and right lower lobes. No bronchial wall thickening, or honeycombing identified. Left lung: No nodules, masses, consolidation, pleural effusion, pneumothorax. Emphysema. Previously visualized groundglass opacities identified in left lung have resolved. No bronchial wall thickening or honeycombing identified. Lymph nodes: No hilar, mediastinal, or axillary lymph node enlargement. Thoracic aorta: Normal in course and caliber. Cardiac: Size normal. No pericardial effusion. Coronary artery calcification identified. Pacemaker wires visualized right atrium and right ventricle. Upper abdomen:Limited imaging upper abdomen shows no gross anomaly. Musculoskeletal:No osteoblastic, and no osteolytic lesions. Diffuse disc space narrowing with small anterior osteophytes thoracic spine. Report All CT scans at this facility use dose modulation, iterative reconstruction, and/or weight based dosing when appropriate to reduce radiation dose to as low as reasonably achievable. Ordering Provider: Pooja Stephens FINAL REPORT Dictated: 07/11/2024 3:17 pm Christos Valencia MD Signed (Electronic Signature): 07/11/2024 3:17 pm Signed by: Christos Valencia MD Transcribed by: BRIAN Technologist: SB, Normal [facility] Calprotectin, Fecalon 2024 Calprotectin (Stl) [Mass/Mass] 550 mcg/gm High 0-120 [facility] Comment on above: Result Comment: Conc entration Interpretation Follow-Up < 5 - 50 ug/g Normal None >50 -120 ug/g Borderline Re-evaluate in 4-6 weeks >120 ug/g Abnormal Repeat as clinically indicated Performed at: [address], [place] [id number] MD Anthony Gallagher Performed By: #### 1 [id number] #### [facility] [address] [place] [address] Ambulatory Visit Summaryon 0 07-05-2024 Ambulatory Visit Summary Ambulatory Visit Summary BENNIE DENNIS :1945 Visit Date:07/05/2024 Ambulatory Visit Instructions Your Diagnosis Ulcerative colitis Weight gain Primary biliary cholangitis Your Care Team Attending Physician - Debra STEWART, Eloisa Cheung Primary Care Physician - Cong STEWART, Pete Hooker This Is Your Medications List Contact prescribing physician if questions or concerns Misc Prescription (Nebulizer Machine) aspirin (aspirin 81 mg oral capsule) atorvastatin (atorvastatin 80 mg Tab) carvedilol (carvedilol 12.5 mg Tab) cholecalciferol (Vitamin D3 10,000 intl units oral capsule) mirtazapine (mirtazapine 15 mg oral tablet, disintegrating) multivitamin (One-A-Day Men's Health Formula) pancrelipase (Creon 36,000 units oral delayed release capsule) sacubitril-valsartan (Entresto 24 mg-26 mg oral tablet) spironolactone (spironolactone 25 mg Tab) tamsulosin (tamsulosin 0.4 mg Cap) vedolizumab (Entyvio) warfarin (warfarin 4 mg Tab) Procedures Performed Bronchoscopy abnormal (05/11/2024), Esophagogastroduodenos copy (03/28/2024), Flexible sigmoidoscopy (03/28/2024), Cardiac catheter, Carotid endarterectomy, Colonoscopy. Discharge Vitals Heart Rate (Peripheral) 68 Respiratory Rate 14 Blood Pressure 96/65 Height 172 cm Height 68 in Weight 59 kg Weight 130.073 lb BMI 19.94 What to do next Scheduled Follow-Up Appointments Tuesday 3:00 PM EDT With: Where: [facility] Tuesday 3:30 PM EDT With: Where: [facility] Tuesday 11:00 AM EDT With: Angelo STEWART, Pooja Belcher Where: [facility] 2024 10:00 AM EDT With: Pete Gar MD Where: [address] [address]- Tuesday 11:00 AM EDT With: Where: [address] [address]- Tuesday 9:40 AM EDT With: SWETHA COLLIER PA-C Where: [facility] [address] [place] [address]- Medications What How Much When Why Instructions Unchanged aspirin (aspirin 81 mg oral capsule) By Mouth Every 24 hours Contact prescribing physician if questions or concerns Unchanged atorvastatin (atorvastatin 80 mg Tab) See instructions TAKE 1 TABLET DAILY Contact prescribing physician if questions or concerns Unchanged carvedilol (carvedilol 12.5 mg Tab) 1 Tablets By Mouth 2 times a day Contact prescribing physician if questions or concerns Unchanged cholecalciferol (Vitamin D3 10,000 intl units oral capsule) 1 Capsules By Mouth Every day Contact prescribing physician if questions or concerns Unchanged mirtazapine (mirtazapine 15 mg oral tablet, disintegrating) 1 Tablets By Mouth Once a day (at bedtime) Ulcerative colitis Primary biliary cholangitis Pancreatic insufficiency Leg swelling Contact prescribing physician if questions or concerns Unchanged Misc Prescription (Nebulizer Machine) See instructions Nebulizer Machine Contact prescribing physician if questions or concerns Unchanged multivitamin (One-A-Day Men's Health Formula) 1 Tablets By Mouth Every day Contact prescribing physician if questions or concerns Unchanged pancrelipase (Creon 36,000 units oral delayed release capsule) See instructions 1 cap with meals and 1 with each snack. contents of capsule may be mixed with soft foods such as applesauce Contact prescribing physician if questions or concerns Unchanged sacubitril-valsartan (Entresto 24 mg-26 mg oral tablet) 1 Tablets By Mouth 2 times a day ON HOLD UNTIL SEEN BY [facility] D/ C Contact prescribing physician if questions or concerns Unchanged spironolactone (spironolactone 25 mg Tab) 0.5 tab By Mouth Every day ON HOLD UNTIL SEEN BY [facility] D/ C Contact prescribing physician if questions or concerns Unchanged tamsulosin (tamsulosin 0.4 mg Cap) 1 Capsules By Mouth Every day Contact prescribing physician if questions or concerns Unchanged vedolizumab (Entyvio) Intravenous Contact prescribing physician if questions or concerns Unchanged warfarin (warfarin 4 mg Tab) 1 Tablets By Mouth Every day Managed per [facility] Medication Management Contact prescribing physician if questions or concerns Allergies No Known Medication Allergies Problems Ongoing - Any problem that you are currently receiving treatment for. Adhesive capsulitis of shoulder ASCVD (arteriosclerotic cardiovascular disease) Blood in stool BMI 22.0-22.9, adult BPH with obstruction/lower urinary tract symptoms Chronic anticoagulation Chronic systolic heart failure DDD (degenerative disc disease), lumbar Elevated liver enzymes Esophageal dysphagia Hemiparesis Hx of arterial ischemic stroke Hx of heart artery stent Hypertension Hypert (more content not included)... Normal [facility] CHEMISTRYOrdered By: SYSTEM SYSTEM on 07-05-2024 CRP [Mass/Vol] mg/dL Normal <=1.9mg/dL Remisol Chem CRPon 07-05-2024 CRP [Mass/Vol] mg/L Normal <=1.9 [facility] Comment on above: Performed By: #### 2 [id number] #### [facility] [address] [place] [address] Gastroenterology Office/Clin ic Noteon 07-05-2024 Gastroenterology Office/Clinic Note Gastroenterology Office/Clinic Note Chief Complaint 3 month follow up HPI Staff EST, 78 year old male who presents today for a 3 month follow up. 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 need PET scan Assessment/Plan 1. Ulcerative colitis (K51.90: Ulcerative colitis, unspecified, without complications) 2. 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 Pancreatic insufficiency (K86.89: Other specified diseases of pancreas) 4. Leg swelling (M79.89: Other specified soft tissue disorders) check CRP and stool calprotectin start the pt on mirtazapine and titrate if he tolerates it start Entyvio. if he does not tolerate, will plan to refer to [facility] Vitamin D 25 Hydroxy: 105.2 ng/mL High (04/02/24 14:44:00) Stool Studies Campylobacter group: Not Detected (05/10/24) Clostridium difficile by PCR: NEGATIVE1 (05/10/24) Norovirus GI/GII: Not Detected (05/10/24) Occult Bld Stl: Positive1 Abnormal (05/07/24) Ova/Para Exam Rt: Final report (04/04/24) Result 1: Comment (04/04/24) Rotavirus A: Not Detected (05/10/24) Salmonella species: Not Detected (05/10/24) Shiga Tox Interp: NEGATIVE1 (05/10/24) Shiga Toxin 1: Not Detected (05/10/24) Shiga Toxin 2: Not Detected (05/10/24) Shigella species: Not Detected (05/10/24) Vibrio Group: Not Detected (05/10/24) Yersinia enterocolitica: Not Detected (05/10/24) Laboratory Results CBC CMP PT PTT Basophil Absolute: 0 E9/L (05/10/24) A/G Ratio: 1 Low (05/09/24) INR: 1.95 (05/14/24) PTT: 42.1 second(s) High (05/07/24) Basophil Auto: 0.1 % (05/10/24) AGAP: 10 mEq/L (05/12/24) PT: 22 second(s) High (05/14/24) Eos Absolute: 0 E9/L (05/10/24) Albumin Lvl: 2.4 gm/dL Low (05/09/24) Eos Auto: 0.2 % (05/10/24) Alk Phos: 54 Int._Unit/L (05/09/24) Hct: 28.1 % Low (05/12/24) ALT: 30 Int._Unit/L (05/09/24) HGB: 9.5 gm/dL Low (05/12/24) AST: 50 Int._Unit/L High (05/09/24) Lymph Absolute: 1.1 E9/L (05/10/24) Bili Total: 0.3 mg/dL (05/09/24) Lymph Auto: 19.7 % (05/10/24) BUN: 15 mg/dL (05/12/24) MCH: 31.2 pg (05/10/24) BUN/Creat Ratio: 15 (05/12/24) MCHC: 33.7 gm/dL (05/10/24) Calcium Lvl: 8 mg/dL Low (05/12/24) MCV: 92.4 fL (05/10/24) Chloride: 111 mmol/L (05/12/24) Will Absolute: 0.3 E9/L (05/10/24) CO2: 27 mmol/L (05/12/24) Will Auto: 6.5 % (05/10/24) Creatinine: 1 mg/dL (05/12/24) MPV: 7.8 fL (05/10/24) Globulin: 2.4 gm/dL (05/09/24) Neutro Absolute: 4 E9/L (05/10/24) Glucose Lvl: 94 mg/dL (05/12/24) Neutro Auto: 73.5 % (05/10/24) Potassium Lvl: 3.8 mmol/L (05/12/24) Platelet: 295 E9/L (05/10/24) Sodium Lvl: 144 mmol/L (05/12/24) RBC: 3 E12/L Low (05/10/24) Total Protein: 4.8 gm/dL Low (05/09/24) RDW: 16 % High (05/10/24) WBC: 5.4 E9/L (05/10/24) Liver Studies AMA Ab Scr: 24.2 High (04/02/24) MASSIMO Direct: Negative (04/02/24) Ferritin Lvl: 436 ng/mL High (05/06/24) HCV Ab: Non Reactive (04/02/24) Hep A Ab: Positive Abnormal (04/02/24) Hep A IgM: Negative (04/02/24) Hep B Core IgM: Negative (04/02/24) Hep Bs Ag: Negative (04/02/24) Iron: <10 Low (05/06/24) SMA Scr: 56 High (04/02/24) TIBC: 197 mcg/dL Low (05/06/24) Review of Systems PHQ Score Initial Depression Screen Score: 0 SCORE All systems reviewed, negative except as mentioned above Physical Exam Vitals & Measurements HR: 68(Peripheral) RR: 14 BP: 96/65 HT: 68 in HT: 172 cm WT: 130.073 lb WT: 59 kg BMI: 19.94 pt is doing well on vedo gained several pounds bowel movements are better working with PT eating well General: alert, no acute distress HEENT: atraumatic normocephalic Cardiovascular: regular rate and rhythm, normal peripheral perfusion Respiratory: Lungs CTA, respirations non labored Extremities: no deformity, no trauma Abdomen: Benign, soft, nontender nondistended Assessment/Plan 1. Ulcerative colitis (K51.90: Ulcerative colitis, unspecified, without complications) 2. Weight gain (R63.5: Abnormal weight gain) 3. Primary biliary cholangitis (K74.3: Primary biliary cirrhosis) Continue vedolizumab every 8 weeks Patient did not tolerate treatment for PBC Will try livdelzi Repeat CRP and stool calprotectin Continue Creon at the same dose Continue mirtazapine and titrate up to 30 mg daily Will discuss maintenance and repeat colonoscopy next visit Follow-up No qualifying data available Problem List/Past Medical History Ongoing Adhesive capsulitis of shoulder ASCVD (arteriosclerotic cardiovascular disease) Blood in stool BMI 22.0-22.9, adult BPH with obstruction/lower urinary tract symptoms Chronic anticoagulation Chronic systolic heart failure DDD (degenerative disc disease), lumbar Elevated liver enzymes Esophageal dysphagia Hemiparesis Hx of arterial ischemic (more content not included)... Normal [facility] Comment on above: Result Comment: Elec tronically Signed By: Debra STEWART, Eloisa Cheung\.br\Date and Time Signed: 07/05/24 09:48 EDT Acid Fast Smear+Cultureon Microscopic observation Acid fast stain Nom (Unsp spec) Negative Invalid Interpretation Code [facility] Comment on above: Performed By: #### 1 [id number] #### [facility] [address] [place] [address] Mycobacterium sp Org specific cx Ql (Unsp spec) Negative Invalid Interpretation Code [facility] Comment on above: Result Comment: No a niecy fast bacilli isolated after 6 weeks. Performed at: [facility] [address] [place], [place] [id number] PhD Brandyn Madera Performed By: #### 1 [id number] #### [facility] [address] [place] [address] Microscopic observation Acid fast stain Nom (Unsp spec) Negative Invalid Interpretation Code [facility] Comment on above: Performed By: #### 1 [id number] #### [facility] [address] [place] [address] Mycobacterium sp Org specific cx Ql (Unsp spec) Negative Invalid Interpretation Code [facility] Comment on above: Result Comment: No a niecy fast bacilli isolated after 6 weeks. Performed at: [address] [id number] PhD Brandyn Madera Performed By: #### 1 [id number] #### [facility] [address] [place] [address] Specimen preparation Nom (Unsp spec) Concentration Invalid Interpretation Code [facility] Comment on above: Result Comment: Perf ormed at: [address] [id number] PhD Brandyn Madera Performed By: #### 1 [id number] #### [facility] [address] [place] [address] Specimen preparation Nom (Unsp spec) Concentration Invalid Interpretation Code [facility] Comment on above: Result Comment: Perf ormed at: [address] [id number] PhD Brandyn Madera Performed By: #### 1 [id number] #### [facility] [address] [place] [address] Ambulatory Visit Summaryon 0 06-07-2024 Ambulatory Visit Summary Ambulatory Visit Summary BENNIE DENNIS :1945 Visit Date:06/07/2024 Ambulatory Visit Instructions Your Diagnosis Prostate disorder Your Care Team Attending Physician - SWETHA COLLIER PA-C Primary Care Physician - Pete Gar MD. This Is Your Medications List [facility] Prescription (Nebulizer Machine) albuterol (Albuterol (Eqv-Ventolin HFA) 90 mcg/inh inhalation aerosol) aspirin (aspirin 81 mg oral capsule) atorvastatin (atorvastatin 80 mg Tab) carvedilol (carvedilol 12.5 mg Tab) cholecalciferol (Vitamin D3 10,000 intl units oral capsule) folic acid mesalamine (mesalamine 1.2 g oral enteric coated tablet) mirtazapine (mirtazapine 15 mg oral tablet, disintegrating) multivitamin (One-A-Day Men's Health Formula) multivitamin with minerals (PreserVision AREDS) omega-3 polyunsaturated fatty acids (Fish Oil) pancrelipase (Creon 36,000 units oral delayed release capsule) sacubitril-valsartan (Entresto 24 mg-26 mg oral tablet) spironolactone (spironolactone 25 mg Tab) tamsulosin (tamsulosin 0.4 mg Cap) warfarin (warfarin 4 mg Tab) Procedures Performed Bronchoscopy abnormal (05/11/2024), Esophagogastroduodenos copy (03/28/2024), Flexible sigmoidoscopy (03/28/2024), Cardiac catheter, Carotid endarterectomy, Colonoscopy. Discharge Vitals Temperature (Temporal Artery) 37 ???C Heart Rate (Peripheral) 56 Respiratory Rate 16 Blood Pressure 96/68 Height 172 cm Height 68 in Weight 62 kg Weight 136.686 lb BMI 20.96 What to do next Scheduled Follow-Up Appointments Tuesday 10:00 AM EDT With: Angelo STEWART, Pooja Belcher Where: [facility] 2024 9:15 AM EDT With: Debra STEWART, Eloisa Cheung Where: [facility] [address] [place] [address]- 2024 10:00 AM EDT With: Pete Gar MD Where: [facility] [address] [address]- Tuesday 11:00 AM EDT With: Where: [facility] [place] [address] [place] [address]- Tuesday 9:40 AM EDT With: SWETHA COLLIER PA-C Where: [facility] [address] [place] [address] [place] [address]- Medications What How Much When Why Instructions Unchanged albuterol (Albuterol (Eqv-Ventolin HFA) 90 mcg/ inh inhalation aerosol) 2 Inhalation Inhalation Every 6 hours Unchanged aspirin (aspirin 81 mg oral capsule) By Mouth Every 24 hours Unchanged atorvastatin (atorvastatin 80 mg Tab) See instructions TAKE 1 TABLET DAILY Unchanged carvedilol (carvedilol 12.5 mg Tab) 1 Tablets By Mouth 2 times a day Unchanged cholecalciferol (Vitamin D3 10,000 intl units oral capsule) 1 Capsules By Mouth Every day Unchanged folic acid Every day Unchanged mesalamine (mesalamine 1.2 g oral enteric coated tablet) By Mouth Every day Unchanged mirtazapine (mirtazapine 15 mg oral tablet, disintegrating) 1 Tablets By Mouth Once a day (at bedtime) Ulcerative colitis Primary biliary cholangitis Pancreatic insufficiency Leg swelling Unchanged Misc Prescription (Nebulizer Machine) See instructions Nebulizer Machine Unchanged multivitamin (One-A-Day Men's Health Formula) 1 Tablets By Mouth Every day Unchanged multivitamin with minerals (PreserVision AREDS) See instructions take twice daily Unchanged omega-3 polyunsaturated fatty acids (Fish Oil) By Mouth Unchanged pancrelipase (Creon 36,000 units oral delayed release capsule) See instructions 1 cap with meals and 1 with each snack. contents of capsule may be mixed with soft foods such as applesauce Unchanged sacubitril-valsartan (Entresto 24 mg-26 mg oral tablet) 1 Tablets By Mouth 2 times a day ON HOLD UNTIL SEEN BY CARDIO [facility] D/ C Unchanged spironolactone (spironolactone 25 mg Tab) 0.5 tab By Mouth Every day ON HOLD UNTIL SEEN BY CARDIO [facility] D/ C Unchanged tamsulosin (tamsulosin 0.4 mg Cap) 1 Capsules By Mouth Every day Unchanged warfarin (warfarin 4 mg Tab) 1 Tablets By Mouth Every day Managed per [facility] Medication Management Allergies No Known Medication Allergies Problems Ongoing - Any problem that you are currently receiving treatment for. Adhesive capsulitis of shoulder ASCVD (arteriosclerotic cardiovascular disease) Blood in stool BMI 22.0-22.9, adult Chronic anticoagulation Chronic systolic heart failure DDD (degenerative disc disease), lumbar Elevated liver enzymes Esophageal dysphagia Hemiparesis Hx of arterial ischemic stroke Hx of heart artery stent Hypertension Hypertensive CHF (congestive heart failure) Leg swelling Loose stools Nonsmoker Pancreatic insufficiency Paroxysmal A-fib Primary biliary cholangitis Prostate disorder Ulcerative colitis Patient Survey (more content not included)... Normal [facility] Urology Office/Clinic Noteon 06-07-2024 Urology Office/Clinic Note Urology Office/Clinic Note Chief Complaint f/u to ED visit HPI Staff 78yr old male pt here for ER f/u. Pt went to ER 05/06/24 with acute hypoxic respiratory failure. He was in septic shock on admission. Also had JOSELITO, believed to be from dehydration. CT abdomen/pelvis showed nl kidneys without hydro, nl bladder. Bladder scan during hospitalization showed >600mL of urine. Gill catheter was placed. He failed voiding trial inpt but despite this appears to have been dc'd without Gill in place. Dc'd to [facility] 05/14/24. I did call and was told they did PVR on 05/24/24 which was 78-93ml. Was also told that staff attempted to replace Gill at one point because pt was in the bathroom constantly voiding but they were unsuccessful placing cath. Dysuria: denies Incomplete bladder emptying: less than 1 in 5x Hematuria: pt states he did see blood about a month ago, no clots Frequency: denies and states that it only lasted a day Urgency: about half the time Nocturia: 2x Stream: weak less than half the time, intermittency less than 1 in 5x and denies straining Leaking: denies Post void dripping: denies Wearing pads/ Depends: wears a brief for bowel leakage Urge incontinence: denies Stress incontinence: denies Incontinence without Sensory Awareness: denies Abdominal pain: occasional from his colitis Flank pain: denies Sexual complaints: denies Review of Systems PHQ Score Initial Depression Screen Score: 0 SCORE no fever, chills, malaise, myalgia. no rash/lesions. no chest pain, palpitations, or SOB. no abdominal pain, nausea, vomiting. Physical Exam Vitals & Measurements T: 37 ???C(Temporal Artery) HR: 56(Peripheral) RR: 16 BP: 96/68 HT: 68 in HT: 172 cm WT: 62 kg WT: 136.686 lb BMI: 20.96 General: nontoxic, NAD Mouth: moist mucosa Lungs: normal respiratory effort Cardio: regular rate, good distal perfusion Abdomen: nondistended, no suprapubic distention or tenderness, no CVA tenderness Neurologic: Grossly normal Skin: No rashes or suspicious lesions Assessment/Plan Dc'd from [facility] today back home w . 1. BPH with obstruction/lower urinary tract symptoms (N40.1: Benign prostatic hyperplasia with lower urinary tract symptoms) IPSS 9 QOL 1 Denies significant LUTS over the past few years. Reports very mild sx that seem to have improved since starting Flomax 2 weeks ago. No bothersome side effects noted. Risks/benefits discussed. Pt willing to continue medication. reports they already have Rx and refills. Ordered: E&M of New Patient Moderate 45-59 Min 26850 2. Urine retention (R33.9: Retention of urine, unspecified) PVR at [facility] 78-93ml. PVR 10ml today. No indication to replace Gill. Ordered: E&M of New Patient Moderate 45-59 Min 26291 Other obstructive and reflux uropathy (N13.8: Other obstructive and reflux uropathy) Orders: 07901 Measure Post Void residual urine and/or bladder capacity by US- non-imaging Follow-up With When Contact Information NANDO KAY, SWETHA Azevedo, URL In 6 months [address] [place] [address] Additional Instructions: Patient Education Benign Prostatic Hyperplasia Problem List/Past Medical History Ongoing Adhesive capsulitis of shoulder ASCVD (arteriosclerotic cardiovascular disease) Blood in stool BMI 22.0-22.9, adult BPH with obstruction/lower urinary tract symptoms Chronic anticoagulation Chronic systolic heart failure DDD (degenerative disc disease), lumbar Elevated liver enzymes Esophageal dysphagia Hemiparesis Hx of arterial ischemic stroke Hx of heart artery stent Hypertension Hypertensive CHF (congestive heart failure) Leg swelling Loose stools Nonsmoker Pancreatic insufficiency Paroxysmal A-fib Primary biliary cholangitis Prostate disorder Ulcerative colitis Urine retention Historical No qualifying data Procedure/Surgical History Bronchoscopy abnormal (05/11/2024), Esophagogastroduodenos copy (03/28/2024), Flexible sigmoidoscopy (03/28/2024), Cardiac catheter, Carotid endarterectomy, Colonoscopy. Medications Albuterol (Eqv-Ventolin HFA) 90 mcg/inh inhalation aerosol, 180 mcg= 2 inh, Inhalation, q6hr aspirin 81 mg oral capsule, Oral, q24hr atorvastatin 80 mg Tab, See Instructions carvedilol 12.5 mg Tab, 12.5 mg= 1 tab(s), Oral, BID Creon 36,000 units oral delayed release capsule, See Instructions, 3 refills Entresto 24 mg-26 mg oral tablet, 1 tab(s), Oral, BID Fish Oil, Oral folic acid, Daily mesalamine 1.2 g oral enteric coated tablet, Oral, Daily mirtazapine 15 mg oral tablet, disintegrating, 15 mg= 1 tab(s), Oral, Once a day (at bedtime) Nebulizer Machine, See Instructions One-A-Day Men's Health Formula, 1 tab(s), Oral, Daily PreserVision AREDS, See Instructions spironolactone 25 mg Tab, 0.5 tab, Oral, Daily tamsulosin 0.4 mg Cap, 0.4 mg= 1 cap(s), Oral, Daily Vitamin D3 10,000 intl units oral ca (more content not included)... Normal [facility] Comment on above: Result Comment: Elec tronically Signed By: SWETHA COLLIER PA-C\.dana\Date and Time Signed: 06/07/24 15:17 EST Pulmonology Office/Clinic No deanna 06-02-2024 Pulmonology Office/Clinic Note Pulmonology Office/Clinic Note Chief Complaint Inpatient f/u History of Present Illness pt has h/o Crohn's was on high dose prednisone admitted with weakness noted to have pulmonary infiltrates with ground glass and interstitial . Bronchoscopy was done to evaluate for infection and PJP and all negative. He denies dyspnea no cough no hypoxia Review of Systems PHQ Score Initial Depression Screen Score: 0 SCORE 12 point system review was done and negative except what mentioned in HPI Physical Exam Vitals & Measurements HR: 78(Peripheral) BP: 76/50 SpO2: 98% HT: 68 in HT: 172 cm WT: 66 kg WT: 145.505 lb BMI: 22.31 General: no distress Skin: warm? , dry? Head: no? trauma, normocephalic? Neck: Trachea midline? , no? adenopathy, no? tenderness Eye: normal? conjunctiva, sclera clear? ENMT: oral mucosa moist? Cardiovascular: regular? rate and rhythm, normal? Respiratory: Lungs CTA? ,respirations non labored? Chest wall: no? deformity. Gastrointestinal: soft? , non distended? , no? tenderness, no? guarding. Extremities: no? deformity, no? trauma Neurological: nonfocal Assessment/Plan 1. Pulmonary infiltrates (R91.8: Other nonspecific abnormal finding of lung field) Ordered: CT Chest w/o High Resolution Pulmonary Function Testing 2. ILD (interstitial lung disease) (J84.9: Interstitial pulmonary disease, unspecified) Ordered: CT Chest w/o High Resolution Pulmonary Function Testing The findings on previous CT could suggest a degree of ILD likely related to inflammatory bowel disease or other etiologies since he has known hx of autoimmune diseases including primary sclerosing cholangitis . Cultures have been negative. I will plan to obtain PFT and follow up CT chest with high resolution and re-evaluate. He has no respiratory symptoms and treatment should be directed mostly to his GI issues as he is followed by GI. Could consider inhaled steroids in the future Follow-up No qualifying data available 6 wks Problem List/Past Medical History Ongoing Adhesive capsulitis of shoulder ASCVD (arteriosclerotic cardiovascular disease) Blood in stool BMI 22.0-22.9, adult Chronic anticoagulation Chronic systolic heart failure DDD (degenerative disc disease), lumbar Elevated liver enzymes Esophageal dysphagia Hemiparesis Hx of arterial ischemic stroke Hx of heart artery stent Hypertension Hypertensive CHF (congestive heart failure) Leg swelling Loose stools Nonsmoker Pancreatic insufficiency Paroxysmal A-fib Primary biliary cholangitis Prostate disorder Ulcerative colitis Historical No qualifying data Procedure/Surgical History Bronchoscopy abnormal (05/11/2024), Esophagogastroduodenos copy (03/28/2024), Flexible sigmoidoscopy (03/28/2024), Cardiac catheter, Carotid endarterectomy, Colonoscopy. Medications Albuterol (Eqv-Ventolin HFA) 90 mcg/inh inhalation aerosol, 180 mcg= 2 inh, Inhalation, q6hr aspirin 81 mg oral capsule, Oral, q24hr atorvastatin 80 mg Tab, See Instructions carvedilol 12.5 mg Tab, 12.5 mg= 1 tab(s), Oral, BID Creon 36,000 units oral delayed release capsule, See Instructions, 3 refills Entresto 24 mg-26 mg oral tablet, 1 tab(s), Oral, BID, Not taking: Medication was placed on hold at [facility] D/C 05/14 until seen by cardiology Fish Oil, Oral folic acid, Daily mesalamine 1.2 g oral enteric coated tablet, Oral, Daily mirtazapine 15 mg oral tablet, disintegrating, 15 mg= 1 tab(s), Oral, Once a day (at bedtime) Nebulizer Machine, See Instructions One-A-Day Men's Health Formula, 1 tab(s), Oral, Daily PreserVision AREDS, See Instructions spironolactone 25 mg Tab, 0.5 tab, Oral, Daily, Not taking: Medication was placed on hold at [facility] D/C 05/14 until seen by cardiology Vitamin D3 10,000 intl units oral capsule, 250 mcg= 1 cap(s), Oral, Daily warfarin 4 mg Tab, 4 mg= 1 tab(s), Oral, Daily Allergies No Known Medication Allergies Social History Alcohol - Denies Alcohol Use, 09/06/2023 Substance Abuse - Denies Substance Abuse, 09/06/2023 Tobacco - Denies Tobacco Use, 03/29/2024 Former smoker, quit more than 30 days ago Tobacco Use:., 06/01/2024 Never (less than 100 in lifetime) Tobacco Use:. Never Smokeless Tobacco Use:. Household tobacco concerns: No. Yes, 05/01/2024 Former smoker, quit more than 30 days ago Tobacco Use:., 04/02/2024 Family History Acute myocardial infarction: Mother. Heart disease: Mother. Leukemia: Father. Immunizations Vaccine Date Status influenza virus vaccine, inactivated 02/28/2023 Given pneumococcal 23-valent vaccine 04/12/2021 Recorded influenza virus vaccine, inactivated 04/12/2021 Recorded SARS-CoV-2 (COVID-19) mRNA BNT-162b2 vax 08/07/2020 Recorded SARS-CoV-2 (COVID-19) mRNA BNT-162b2 vax 07/18/2020 Recorded influenza virus vaccine, inactivated 02/20/2019 Recorded pneumococcal 13-valent vaccine 02/05/2019 Recorded Normal [facility] Comment on above: Result Comment: Elec tronically Signed By: Pooja Stephens MD\.br\Date and Time Signed: 06/02/24 08:44 EST Ambulatory Visit Summaryon 0 06-01-2024 Ambulatory Visit Summary Ambulatory Visit Summary BENNIE DENNIS :1945 Visit Date:06/01/2024 Ambulatory Visit Instructions Your Diagnosis Ulcerative colitis Primary biliary cholangitis Pancreatic insufficiency Leg swelling Your Care Team Attending Physician - Debra STEWART, Eloisa Cheung Primary Care Physician - Cong STEWART, Pete Hooker This Is Your Medications List mirtazapine (mirtazapine 15 mg oral tablet, disintegrating) Contact prescribing physician if questions or concerns Misc Prescription (Nebulizer Machine) albuterol (Albuterol (Eqv-Ventolin HFA) 90 mcg/inh inhalation aerosol) aspirin (aspirin 81 mg oral capsule) atorvastatin (atorvastatin 80 mg Tab) carvedilol (carvedilol 12.5 mg Tab) cholecalciferol (Vitamin D3 10,000 intl units oral capsule) folic acid mesalamine (mesalamine 1.2 g oral enteric coated tablet) multivitamin (One-A-Day Men's Health Formula) multivitamin with minerals (PreserVision AREDS) omega-3 polyunsaturated fatty acids (Fish Oil) pancrelipase (Creon 36,000 units oral delayed release capsule) sacubitril-valsartan (Entresto 24 mg-26 mg oral tablet) spironolactone (spironolactone 25 mg Tab) warfarin (warfarin 4 mg Tab) Procedures Performed Bronchoscopy abnormal (05/11/2024), Esophagogastroduodenos copy (03/28/2024), Flexible sigmoidoscopy (03/28/2024), Cardiac catheter, Carotid endarterectomy, Colonoscopy. Discharge Vitals Heart Rate (Peripheral) 86 Respiratory Rate 14 Blood Pressure 68/41 What to do next Scheduled Follow-Up Appointments Tuesday 10:00 AM EST With: Pooja Stephens MD Where: [facility] 2024 10:20 AM EST With: SWETHA COLLIER PA-C Where: [facility] [address] [place] [address] 2024 9:15 AM EDT With: Debra STEWART, Eloisa Cheung Where: [facility] [address] [address] 2024 10:00 AM EDT With: Cong STEWART, Pete Hooker Where: [facility] [address] [place] [address]- Tuesday 11:00 AM EDT With: Where: [address] [address]- You Need to Complete the Following C-Reactive Protein, Blood, Routine collect, 06/01/24, Order for future visit, Lab Collect, Ulcerative colitis Primary biliary cholangitis Pancreatic insufficiency Leg swelling, Not Required, Print Label By Order Location Calprotectin, Fecal, Stool, Routine collect, 06/01/24, Order for future visit, Nurse collect, Ulcerative colitis Primary biliary cholangitis Pancreatic insufficiency Leg swelling, Not Required, Print Label By Order Location Medications What How Much When Why Instructions New mirtazapine (mirtazapine 15 mg oral tablet, disintegrating) 1 Tablets By Mouth Once a day (at bedtime) Ulcerative colitis Primary biliary cholangitis Pancreatic insufficiency Leg swelling Pickup at [facility]/pharmacy #[id number] Unchanged albuterol (Albuterol (Eqv-Ventolin HFA) 90 mcg/ inh inhalation aerosol) 2 Inhalation Inhalation Every 6 hours Contact prescribing physician if questions or concerns Unchanged aspirin (aspirin 81 mg oral capsule) By Mouth Every 24 hours Contact prescribing physician if questions or concerns Unchanged atorvastatin (atorvastatin 80 mg Tab) See instructions TAKE 1 TABLET DAILY Contact prescribing physician if questions or concerns Unchanged carvedilol (carvedilol 12.5 mg Tab) 1 Tablets By Mouth 2 times a day Contact prescribing physician if questions or concerns Unchanged cholecalciferol (Vitamin D3 10,000 intl units oral capsule) 1 Capsules By Mouth Every day Contact prescribing physician if questions or concerns Unchanged folic acid Every day Contact prescribing physician if questions or concerns Unchanged mesalamine (mesalamine 1.2 g oral enteric coated tablet) By Mouth Every day Contact prescribing physician if questions or concerns Unchanged Misc Prescription (Nebulizer Machine) See instructions Nebulizer Machine Contact prescribing physician if questions or concerns Unchanged multivitamin (One-A-Day Men's Health Formula) 1 Tablets By Mouth Every day Contact prescribing physician if questions or concerns Unchanged multivitamin with minerals (PreserVision AREDS) See instructions take twice daily Contact prescribing physician if questions or concerns Unchanged omega-3 polyunsaturated fatty acids (Fish Oil) By Mouth Contact prescribing physician if questions or concerns Unchanged pancrelipase (Creon 36,000 units oral delayed release capsule) See instructions 1 cap with meals and 1 with each snack. contents of capsule may be mixed with soft foods such as applesauce Contact prescribing physician if questions or concerns Unchanged sacubitril-valsar (more content not included)... Normal [facility] Gastroenterology Office/Clin ic Noteon 06-01-2024 Gastroenterology Office/Clinic Note Gastroenterology Office/Clinic Note Chief Complaint follow up inpatient HPI Staff EST, 78 year old male who I've previously seen as a consult on 05/09/24, presents today for a follow up inpatient. -Patient has stopped steriods and Stelara. -WARFARIN DAILY. feeling weak and dizzy. BP low 68/41 patient states he does not have an appetite at all. [facility] Consult w/ Dr hassan History of Present Illness Patient is known to GI service with history of UC and PBC Recently evaluated in the GI office for anemia Presented with sob and anemia Was found to have GOO on CT imaging Impression and Plan UC- in partial remission PBC occult blood in the stool GOO on imaging Plan: Patient was findings concerning for infectious pneumonia. ? Steroids or ustekinumab related. Agree with holding all treatments for UC for now I will discuss future options in the office after discharging him from the hospital No need for any intervention for occult blood in the stool since is likely secondary to his use Worsened while stopped as an outpatient since he developed reaction to it Supportive treatment per primary team Obtain CRP and stool calprotectin Patient to follow-up after discharge Last OV w/ Dr Hassan 05/01/24 History of Present Illness pt feels weak and developed dizziness and ankle swelling after starting mely bowel movements are better with no diarrhea getting Stelara this Patient gained 10 to 15 pounds since he was started on treatment Assessment/Plan 1. Weakness (R53.1: Weakness) 2. Ulcerative colitis (K51.90: Ulcerative colitis, unspecified, without complications) 3. 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 Pancreatic insufficiency (K86.89: Other specified diseases of pancreas) 5. Leg swelling (M79.89: Other specified soft tissue disorders) Continue pancreatic enzymes 3 times a day Stop ursodiol given patient developed swelling and weakness which could be a side effect from ursodiol Patient is to start steroids this week Refer to physical therapy for weakness Laboratory Results CRP 3.8 HIGH CBC CMP PT PTT Basophil Absolute: 0 E9/L (05/10/24) A/G Ratio: 1 Low (05/09/24) INR: 1.95 (05/14/24) PTT: 42.1 second(s) High (05/07/24) Basophil Auto: 0.1 % (05/10/24) AGAP: 10 mEq/L (05/12/24) PT: 22 second(s) High (05/14/24) Eos Absolute: 0 E9/L (05/10/24) Albumin Lvl: 2.4 gm/dL Low (05/09/24) Eos Auto: 0.2 % (05/10/24) Alk Phos: 54 Int._Unit/L (05/09/24) Hct: 28.1 % Low (05/12/24) ALT: 30 Int._Unit/L (05/09/24) HGB: 9.5 gm/dL Low (05/12/24) AST: 50 Int._Unit/L High (05/09/24) Lymph Absolute: 1.1 E9/L (05/10/24) Bili Total: 0.3 mg/dL (05/09/24) Lymph Auto: 19.7 % (05/10/24) BUN: 15 mg/dL (05/12/24) MCH: 31.2 pg (05/10/24) BUN/Creat Ratio: 15 (05/12/24) MCHC: 33.7 gm/dL (05/10/24) Calcium Lvl: 8 mg/dL Low (05/12/24) MCV: 92.4 fL (05/10/24) Chloride: 111 mmol/L (05/12/24) Will Absolute: 0.3 E9/L (05/10/24) CO2: 27 mmol/L (05/12/24) Will Auto: 6.5 % (05/10/24) Creatinine: 1 mg/dL (05/12/24) MPV: 7.8 fL (05/10/24) Globulin: 2.4 gm/dL (05/09/24) Neutro Absolute: 4 E9/L (05/10/24) Glucose Lvl: 94 mg/dL (05/12/24) Neutro Auto: 73.5 % (05/10/24) Potassium Lvl: 3.8 mmol/L (05/12/24) Platelet: 295 E9/L (05/10/24) Sodium Lvl: 144 mmol/L (05/12/24) RBC: 3 E12/L Low (05/10/24) Total Protein: 4.8 gm/dL Low (05/09/24) RDW: 16 % High (05/10/24) WBC: 5.4 E9/L (05/10/24) Liver Studies AMA Ab Scr: 24.2 High (04/02/24) MASSIMO Direct: Negative (04/02/24) Ferritin Lvl: 436 ng/mL High (05/06/24) HCV Ab: Non Reactive (04/02/24) Hep A Ab: Positive Abnormal (04/02/24) Hep A IgM: Negative (04/02/24) Hep B Core IgM: Negative (04/02/24) Hep Bs Ag: Negative (04/02/24) Iron: <10 Low (05/06/24) SMA Scr: 56 High (04/02/24) TIBC: 197 mcg/dL Low (05/06/24) Stool Studies Campylobacter group: Not Detected (05/10/24) Clostridium difficile by PCR: NEGATIVE1 (05/10/24) Norovirus GI/GII: Not Detected (05/10/24) Occult Bld Stl: Positive1 Abnormal (05/07/24) Ova/Para Exam Rt: Final report (04/04/24) Result 1: Comment (04/04/24) Rotavirus A: Not Detected (05/10/24) Salmonella species: Not Detected (05/10/24) Shiga Tox Interp: NEGATIVE1 (05/10/24) Shiga Toxin 1: Not Detected (05/10/24) Shiga Toxin 2: Not Detected (05/10/24) Shigella species: Not Detected (05/10/24) Vibrio Group: Not Detected (05/10/24) Yersinia enterocolitica: Not Detected (05/10/24) Review of Systems PHQ Score Initial Depression Screen Score: 0 SCORE All systems reviewed, negative except as mentioned above Physical Exam Vitals & Measurements HR: 86(Peripheral) RR: 14 BP: 68/41 I have reviewed HPI staff note, most recent labs and imaging, I agree with the above documentation with the following additions/exceptions : pt not eating much no diarrhea or blood in s (more content not included)... Normal [facility] Comment on above: Result Comment: Elec tronically Signed By: Debra STEWART, Eloisa Cheung\.br\Date and Time Signed: 06/01/24 10:33 EST Office Visiton 05-28-2024 Follow-up visit [id number] Bennie Dennis 1945 M Date Provider Department Center 05/28/2024 ANGELA JOY ROBERTO Michael Family History Problem Relation Age of Onset Coronary artery disease Brother Diabetes Brother Family Status - Relation Status Age at Brother Level of Service:01114 [place] OFFICE/OUTPATIENT ESTABLISHED MOD MDM 30 MIN Normal [facility] Alanine aminotransferase [En zymatic activity/volume] in Serum or PlasmaOrdered By: Gary Madsen on 05-23-2024 ALT [Catalytic activity/Vol] Alanine aminotransferase [Enzymatic activity/volume] in Serum or Plasma High 7-52 [facility] Albumin [Mass/volume] in Ser um or Plasma by Bromocresol green (BCG) dye binding methoOrdered By: Gary Madsen on 05-23-2024 Albumin BCG dye [Mass/Vol] Albumin [Mass/volume] in Serum or Plasma by Bromocresol green (BCG) dye binding metho Low 3.5-5.7 [facility] Alkaline phosphatase [Enzyma tic activity/volume] in Serum or PlasmaOrdered By: Gary Madsen on 05-23-2024 ALP [Catalytic activity/Vol] Alkaline phosphatase [Enzymatic activity/volume] in Serum or Plasma 34-104 [facility] Appearance of UrineOrdered B y: Gary Madsen on 05-23-2024 Appearance (U) Urine appearance Abnormal Clear [facility] Aspartate aminotransferase [ Enzymatic activity/volume] in Serum or PlasmaOrdered By: Gary Madsen on 05-23-2024 AST [Catalytic activity/Vol] Aspartate aminotransferase [Enzymatic activity/volume] in Serum or Plasma High 13-39 [facility] B-Type Natriuretic Peptideon 05-23-2024 Natriuretic peptide B (Bld) [Mass/Vol] 164.0 pg/mL High 5-100 [facility] Comment on above: Result Comment: PERF ORMED BY: [place] [address] PATHOLOGIST IT HELP DESK TECHNICIAN MILKA PEDERSON M.D. Performed By: #### P T, MG, CK, BNP, CMP, HS TROP, PTT #### [address] Bacteria [Presence] in Urine by AutomatedOrdered By: Gary Madsen on 05-23-2024 Bacteria Auto Ql (U) Bacteria [Presence] in Urine by Automated High None Seen [facility] Basophils Auto (Bld) [#/Vol] Ordered By: Gary Madsen on 05-23-2024 Basophils (Bld) [#/Vol] Automated basophil count 0.0-0.2 [facility] Basophils/100 WBC Auto (Bld) Ordered By: Gary Madsen on 05-23-2024 Basophils/100 WBC (Bld) Automated basophil % . [facility] Bilirubin Test strip Ql (U)O rdered By: Gary Madsen on 05-23-2024 Bilirubin Ql (U) Bilirubin.total [Presence] in Urine by Test strip Negative [facility] Bilirubin.total [Mass/volume ] in Serum or PlasmaOrdered By: Gary Madsen on 05-23-2024 Bilirubin [Mass/Vol] Bilirubin.total [Mass/volume] in Serum or Plasma 0.3-1.0 [facility] Calcium [Mass/volume] in Ser um or PlasmaOrdered By: Gary Madsen on 05-23-2024 Calcium [Mass/Vol] Calcium [Mass/volume ] in Serum or Plasma 8.6-10.3 [facility] Calcium oxalate crystals [Pr esence] in Urine by Computer assisted methodOrdered By: Gary Madsen on 05-23-2024 Calcium oxalate crystals Computer assisted Ql (U) Calcium oxalate crystals [Presence] in Urine by Computer assisted method [facility] Carbon dioxide, total [Moles /volume] in Serum or PlasmaOrdered By: Gary Madsen on 05-23-2024 CO2 [Moles/Vol] Carbon dioxide, tota l [Moles/volume] in Serum or Plasma High 21.0-31.0 [facility] Chloride [Moles/volume] in S juliana or PlasmaOrdered By: Gary Madsen on 05-23-2024 Chloride [Moles/Vol] Chloride [Moles/volume] in Serum or Plasma 98-107 [facility] Color Auto (U)Ordered By: Han Mdasen on 05-23-2024 Color (U) Color of Urine by Auto [facility] Blood Count Auto Di ffon 05-23-2024 Basophils (Bld) [#/Vol] 0.1 10*3/uL Normal 0.0-0.2 [facility] Comment on above: Result Comment: PERF ORMED BY: [place] [address] PATHOLOGIST IT HELP DESK TECHNICIAN MILKA PEDERSON M.D. Performed By: #### C BC #### [place] [address] [place] Basophils/100 WBC (Bld) 1.0 % Normal . [facility] Comment on above: Performed By: #### C BC #### [address] Eosinophils (Bld) [#/Vol] 0.0 10*3/uL Normal 0.0-0.45 [facility] Comment on above: Performed By: #### C BC #### [place] [id number] [place] Eosinophils/100 WBC (Bld) 0.5 % Normal . [facility] Comment on above: Performed By: #### C BC #### [address] Erythrocyte distribution width (RBC) [Ratio] 17.6 % High 12.0-14.8 [facility] Comment on above: Performed By: #### C BC #### [address] Hematocrit (Bld) [Volume fraction] 34.1 % Low 38.8-50.0 [facility] Comment on above: Performed By: #### C BC #### [address] Hemoglobin (Bld) [Mass/Vol] 11.4 g/dL Low 13.0-17.0 [facility] Comment on above: Performed By: #### C BC #### [address] Lymphocytes (Bld) [#/Vol] 1.9 10*3/uL Normal 1.00-4.8 [facility] Comment on above: Performed By: #### C BC #### [address] Lymphocytes/100 WBC (Bld) 31.1 % Normal . [facility] Comment on above: Performed By: #### C BC #### [address] MCH (RBC) [Entitic mass] 31.6 pg Normal 27.5-35.2 [facility] Comment on above: Performed By: #### C BC #### [address] MCV (RBC) [Entitic vol] 94.3 fL Normal 83.5-101 [facility] Comment on above: Performed By: #### C BC #### [address] Mean Corpuscular HGB Conc 33.5 g/dL Normal 32.5-35.6 [facility] Comment on above: Performed By: #### C BC #### [place] [address] [place] Monocytes (Bld) [#/Vol] 0.6 10*3/uL Normal 0.0-0.8 [facility] Comment on above: Performed By: #### C BC #### [address] Monocytes/100 WBC (Bld) 22.53 % High 0.00-20.00 [facility] Comment on above: Result Comment: For adults in ED, MDW > 20.0 may be associated with a higher risk of sepsis during the first 12 hrs of hospital admission Performed By: #### C BC #### [address] Monocytes/100 WBC (Bld) 8.8 % Normal . [facility] Comment on above: Performed By: #### C BC #### [address] Neutrophils (Bld) [#/Vol] 3.7 10*3/uL Normal 1.8-7.7 [facility] Comment on above: Performed By: #### C BC #### [address] Neutrophils/100 WBC (Bld) 58.6 % Normal . [facility] Comment on above: Performed By: #### C BC #### [place] [address] [place] NRBC% 0.1 /100{WBC} Normal 0-0.5 [facility] Comment on above: Performed By: #### C BC #### [address] Platelet mean volume (Bld) [Entitic vol] 8.6 fL Normal 6.6-10.1 [facility] Comment on above: Performed By: #### C BC #### [place] [address] [place] Platelets (Bld) [#/Vol] 228 10*3/uL Normal 150-450 [facility] Comment on above: Performed By: #### C BC #### [address] RBC (Bld) [#/Vol] 3.62 10*6/uL Low 3.90-5.60 [facility] Comment on above: Performed By: #### C BC #### [address] WBC (Bld) [#/Vol] 6.3 10*3/uL Normal 4.1-10.5 [facility] Comment on above: Performed By: #### C BC #### [address] Comprehensive Metabolic Pane shahzad 05-23-2024 Albumin [Mass/Vol] 3.1 g/dL Low 3.5-5.7 [facility] Comment on above: Performed By: #### P T, MG, CK, BNP, CMP, HS TROP, PTT #### [address] Albumin/Globulin [Mass ratio] 1.0 {ratio} Normal [facility] Comment on above: Performed By: #### P T, MG, CK, BNP, CMP, HS TROP, PTT #### [address] ALP [Catalytic activity/Vol] 95 U/L Normal 34-104 [facility] Comment on above: Performed By: #### P T, MG, CK, BNP, CMP, HS TROP, PTT #### [address] ALT [Catalytic activity/Vol] 81 U/L High 7-52 [facility] Comment on above: Performed By: #### P T, MG, CK, BNP, CMP, HS TROP, PTT #### [address] Anion gap [Moles/Vol] 7.9 mmol/L Normal 6.0-15.0 [facility] Comment on above: Performed By: #### P T, MG, CK, BNP, CMP, HS TROP, PTT #### [address] AST [Catalytic activity/Vol] 120 U/L High 13-39 [facility] Comment on above: Performed By: #### P T, MG, CK, BNP, CMP, HS TROP, PTT #### [address] Bilirubin [Mass/Vol] 0.5 mg/dL Normal 0.3-1.0 [facility] Comment on above: Performed By: #### P T, MG, CK, BNP, CMP, HS TROP, PTT #### [address] Calcium [Mass/Vol] 8.8 mg/dL Normal 8.6-10.3 [facility] Comment on above: Performed By: #### P T, MG, CK, BNP, CMP, HS TROP, PTT #### [address] Chloride [Moles/Vol] 107 mmol/L Normal 98-107 [facility] Comment on above: Performed By: #### P T, MG, CK, BNP, CMP, HS TROP, PTT #### [address] CO2 [Moles/Vol] 31.1 mmol/L High 21.0-31.0 [facility] Comment on above: Performed By: #### P T, MG, CK, BNP, CMP, HS TROP, PTT #### [address] Creatinine [Mass/Vol] 0.95 mg/dL Normal 0.70-1.30 [facility] Comment on above: Performed By: #### P T, MG, CK, BNP, CMP, HS TROP, PTT #### [address] Creatinine Clr Calc Pharmacy 56.40 Normal [facility] Comment on above: Performed By: #### P T, MG, CK, BNP, CMP, HS TROP, PTT #### [address] [place] [address] [place] GFR/1.73 sq M.predicted MDRD (S/P/Bld) [Vol rate/Area] mL/min/{1.73_m2} Normal [facility] Comment on above: Performed By: #### P T, MG, CK, BNP, CMP, HS TROP, PTT #### [facility] [address] Globulin (S) [Mass/Vol] 3.0 g/dL Normal [facility] Comment on above: Performed By: #### P T, MG, CK, BNP, CMP, HS TROP, PTT #### [facility] [address] Glucose [Mass/Vol] 114 mg/dL High 70-100 [facility] Comment on above: Result Comment: [facility] Glucose Reference Range is dependent on time and content of last meal. Glucose of more than 200 mg/dL in a nonstressed, ambulatory subject supports the diagnosis of Diabetes Mellitus. ADA recommended reference range Performed By: #### P T, MG, CK, BNP, CMP, HS TROP, PTT #### [address] Potassium [Moles/Vol] 4.0 mmol/L Normal 3.5-5.1 [facility] Comment on above: Performed By: #### P T, MG, CK, BNP, CMP, HS TROP, PTT #### [address] Protein [Mass/Vol] 6.1 g/dL Low 6.4-8.9 [facility] Comment on above: Performed By: #### P T, MG, CK, BNP, CMP, HS TROP, PTT #### [address] Sodium [Moles/Vol] 142 mmol/L Normal 136-145 [facility] Comment on above: Performed By: #### P T, MG, CK, BNP, CMP, HS TROP, PTT #### [address] Urea nitrogen [Mass/Vol] 14 mg/dL Normal 7-25 [facility] Comment on above: Performed By: #### P T, MG, CK, BNP, CMP, HS TROP, PTT #### [facility] [address] [place] [address] [place] Creatine Kinaseon 05-23-2024 CK [Catalytic activity/Vol] 396 U/L High 30-223 [facility] Comment on above: Performed By: #### P T, MG, CK, BNP, CMP, HS TROP, PTT #### [facility] [address] [place] [id number] [facility] Creatine kinase [Enzymatic a ctivity/volume] in Serum or PlasmaOrdered By: Gary Madsen on 05-23-2024 CK [Catalytic activity/Vol] Creatine kinase [Enzymatic activity/volume] in Serum or Plasma High 30-223 [facility] Creatinine [Mass/volume] in Serum or PlasmaOrdered By: Gary Madsen on 05-23-2024 Creatinine [Mass/Vol] Creatinine [Mass/volume] in Serum or Plasma 0.70-1.30 [facility] Crystals [Presence] in Urine by AutomatedOrdered By: Gary Madsen on 05-23-2024 Crystals Auto Ql (U) Crystals [Presence] in Urine by Automated [facility] Dipstick and Microscopicon 0 05-23-2024 Appearance (U) Cloudy Critically abnormal Clear [facility] Comment on above: Order Comment: Name Collection Type:: Clean-Voided Midstream Performed By: #### A DDONUAPLUS #### [place] [address] [place] Bacteria,Urine 1+ High None Seen [facility] Comment on above: Order Comment: Name Collection Type:: Clean-Voided Midstream Performed By: #### A DDONUAPLUS #### [place] [address] [place] Bilirubin,Urine Negative Normal Negative [facility] Comment on above: Order Comment: Name Collection Type:: Clean-Voided Midstream Performed By: #### A DDONUAPLUS #### [place] [address] [place] Calcium Oxalate Crystals,Urine 1+ Normal [facility] Comment on above: Order Comment: Name Collection Type:: Clean-Voided Midstream Performed By: #### A DDONUAPLUS #### [address] Color (U) Yellow Normal Yellow [facility] Comment on above: Order Comment: Name Collection Type:: Clean-Voided Midstream Performed By: #### A DDONUAPLUS #### [address] Glucose Ql (U) Normal Normal Normal [facility] Comment on above: Order Comment: Name Collection Type:: Clean-Voided Midstream Performed By: #### A DDONUAPLUS #### [place] [address] [place] Hyaline Casts,Urine 9 [LPF] High 0-8 [facility] Comment on above: Order Comment: Name Collection Type:: Clean-Voided Midstream Performed By: #### A DDONUAPLUS #### [address] Ketones Ql (U) Negative Normal Negative [facility] Comment on above: Order Comment: Name Collection Type:: Clean-Voided Midstream Performed By: #### A DDONUAPLUS #### [address] Leukocyte esterase Test strip Ql (U) Negative Normal Negative [facility] Comment on above: Order Comment: Name Collection Type:: Clean-Voided Midstream Performed By: #### A DDONUAPLUS #### [place] [address] [place] Mucus,Urine 3+ Critically abnormal [facility] Comment on above: Order Comment: Name Collection Type:: Clean-Voided Midstream Result Comment: PERF ORMED BY: [place] [address] PATHOLOGIST IT HELP DESK TECHNICIAN MILKA PEDERSON M.D. Performed By: #### A DDONUAPLUS #### [place] [address] [place] Nitrite,Urine Negative Normal Negative [facility] Comment on above: Order Comment: Name Collection Type:: Clean-Voided Midstream Performed By: #### A DDONUAPLUS #### [address] Occult Blood,Urine 3+ High Negative [facility] Comment on above: Order Comment: Name Collection Type:: Clean-Voided Midstream Result Comment: PERF ORMED BY: [place] [address] PATHOLOGIST IT HELP DESK TECHNICIAN MILKA PEDERSON M.D. Performed By: #### A DDONUAPLUS #### [address] Othe Crystals,Urine 2+ Normal [facility] Comment on above: Order Comment: Name Collection Type:: Clean-Voided Midstream Performed By: #### A DDONUAPLUS #### [address] pH (U) 5.0 [pH] Normal 5.0-9.0 [facility] Comment on above: Order Comment: Name Collection Type:: Clean-Voided Midstream Performed By: #### A DDONUAPLUS #### [address] Protein (U) [Mass/Vol] 70 mg/dL High Negative [facility] Comment on above: Order Comment: Name Collection Type:: Clean-Voided Midstream Performed By: #### A DDONUAPLUS #### [place] [address] [place] RBC,Urine Innumerable High 0-4 [facility] Comment on above: Order Comment: Name Collection Type:: Clean-Voided Midstream Performed By: #### A DDONUAPLUS #### [address] Specificy [place],Urine 1.023 Normal 1.001-1.030 [facility] Comment on above: Order Comment: Name Collection Type:: Clean-Voided Midstream Performed By: #### A DDONUAPLUS #### [facility] [address] Urobilinogen,Urine Normal Normal Normal [facility] Comment on above: Order Comment: Name Collection Type:: Clean-Voided Midstream Performed By: #### A DDONUAPLUS #### [facility] [address] WBC,Urine 20 [HPF] High 0-4 [facility] Comment on above: Order Comment: Name Collection Type:: Clean-Voided Midstream Performed By: #### A DDONUAPLUS #### [facility] [address] [place] [address] ECG 12 lead ECGon 05-23-2024 ECG 12 lead ECG [facility] Main [facility] [address] [place] [address] Electrocardiograph Report Signed Patient: Bennie Dennis MR#: [id number] : 1945 Acct:[id number] Age/Sex: 78 / M ADM Date: 05/23/24 Loc: ER Room: Type: [facility] ER Attending Dr: Ordering Provider: Gary Madsen APRN Date of Service: 05/23/2409/09/1120 ECG/ECG 12 lead ECG: Urogenital Copies to: Test Reason : Blood Pressure : */* mmHG Vent. Rate : 86 BPM Atrial Rate : 86 BPM P-R Int : 150 ms QRS Dur : 160 ms QT Int : 398 ms P-R-T Axes : 40 54 234 degrees QTcB Int : 476 ms Normal sinus rhythm Left bundle branch block Abnormal ECG No previous ECGs available Confirmed by JAROCHO NAVARRO DO ([id number]) on 05/23/2024 2:52:02 PM Referred By: Electronically Signed By: JAROCHO NAVARRO DO Transcribed By: MUS Signed By Jarocho Navarro DO [id number] Normal [facility] Eosinophils Auto (Bld) [#/Vo l]Ordered By: Gary Madsen on 05-23-2024 Eosinophils (Bld) [#/Vol] Automated eosinophil count 0.0-0.45 [facility] Eosinophils/100 WBC Auto (Bl d)Ordered By: Gary Madsen on 05-23-2024 Eosinophils/100 WBC (Bld) Automated eosinophil % . [facility] Epithelial cells.squamous [# /area] in Urine sediment by Automated countOrdered By: Gary Madsen on 05-23-2024 Epithelial cells.squamous Auto (Urine sed) [#/Area] Epithelial cells.squamous [#/area] in Urine sediment by Automated count [facility] Erythrocyte distribution wid th Auto (RBC) [Ratio]Ordered By: Gary Madsen on 05-23-2024 Erythrocyte distribution width (RBC) [Ratio] Erythrocyte distribution width [Ratio] by Automated count High 12.0-14.8 [facility] Erythrocytes [#/area] in Uri ne sediment by Automated countOrdered By: Gary Madsen on 05-23-2024 RBC Auto (Urine sed) [#/Area] Erythrocytes [#/area] in Urine sediment by Automated count High 0-4 [facility] Globulin Calc (S) [Mass/Vol] Ordered By: Gary Madsen on 05-23-2024 Globulin (S) [Mass/Vol] Serum globulin measurement by calculation (mass/volume) [facility] Glucose [Mass/volume] in Ser um or PlasmaOrdered By: Gary Madsen on 05-23-2024 Glucose [Mass/Vol] Glucose [Mass/volume ] in Serum or Plasma High 70-100 [facility] Comment on above: ADA recommended refe rence rangeRandom Glucose Reference Range is dependent on time and content of last meal. Glucose of more than 200 mg/dL in a nonstressed, ambulatory subject supports the diagnosis of Diabetes Mellitus. Glucose [Mass/volume] in Uri ne by Test stripOrdered By: Gary Madsen on 05-23-2024 Glucose Test strip (U) [Mass/Vol] Glucose [Mass/volume] in Urine by Test strip Normal [facility] Hematocrit Auto (Bld) [Volum e fraction]Ordered By: Gary Madsen 05-23-2024 Hematocrit (Bld) [Volume fraction] Hematocrit [Volume Fraction] of Blood by Automated count Low 38.8-50.0 [facility] Hemoglobin Test strip Ql (U) Ordered By: Gary Madsen 05-23-2024 Hemoglobin Ql (U) Hemoglobin [Presence ] in Urine by Test strip High Negative [facility] Hemoglobin [Mass/volume] in BloodOrdered By: Gary Madsen on 05-23-2024 Hemoglobin (Bld) [Mass/Vol] Hemoglobin [Mass/volume] in Blood Low 13.0-17.0 [facility] Hyaline casts [#/area] in Ur ine sediment by Automated countOrdered By: Gary Madsen on 05-23-2024 Hyaline casts Auto (Urine sed) [#/Area] Hyaline casts [#/area] in Urine sediment by Automated count High 0-8 [facility] INR in Platelet poor plasma by Coagulation assayOrdered By: Gary Madsen on 05-23-2024 INR Coag (PPP) [Relative time] INR in Platelet poor plasma by Coagulation assay [facility] Comment on above: INR Therapeutic Rang e A) Pre- and Peroperative OAT started two weeks before surgery. NOT HIP SURGERY: 1.5 - 2.5 HIP SURGERY: 2 - 3B) Primary and secondary prevention of venous THROMBOSIS: 2 - 3C) Active venous thrombosis, pulmonary embolismand prevention of recurrent venous thrombosis: 2 - 3D) Prevention of arterial thromboembolismincluding patients with mechanical heart valves: 3 - 4.5 Ketones Test strip Ql (U)Ord ered By: Gary Madsen on 05-23-2024 Ketones Ql (U) Ketones [Presence] i n Urine by Test strip Negative [facility] Leukocyte esterase [Presence ] in Urine by Test stripOrdered By: Gary Madsen on 05-23-2024 Leukocyte esterase Test strip Ql (U) Leukocyte esterase [Presence] in Urine by Test strip Negative [facility] Leukocytes [#/area] in Urine sediment by Automated countOrdered By: Gary Madsen on 05-23-2024 WBC Auto (Urine sed) [#/Area] Leukocytes [#/area] in Urine sediment by Automated count High 0-4 [facility] Leukocytes [#/volume] correc jung for nucleated erythrocytes in Blood by Automated counOrdered By: Gary Madsen on 05-23-2024 WBC corrected for nucl RBC Auto (Bld) [#/Vol] Leukocytes [#/volume] corrected for nucleated erythrocytes in Blood by Automated coun 4.1-10.5 [facility] Lymphocytes Auto (Bld) [#/Vo l]Ordered By: Gary Madsen on 05-23-2024 Lymphocytes (Bld) [#/Vol] Lymphocytes [#/volume] in Blood by Automated count 1.00-4.8 [facility] Lymphocytes/100 WBC Auto (Bl d)Ordered By: Gary Madsen on 05-23-2024 Lymphocytes/100 WBC (Bld) Lymphocytes/100 leukocytes in Blood by Automated count . [facility] MCH Auto (RBC) [Entitic mass ]Ordered By: Gary Madsen on 05-23-2024 MCH (RBC) [Entitic mass] MCH [Entitic mass] by Automated count 27.5-35.2 [facility] MCHC Auto (RBC) [Mass/Vol]Or dered By: Gary Madsen on 05-23-2024 MCHC (RBC) [Mass/Vol] MCHC [Mass/volume] by Automated count 32.5-35.6 [facility] MCV Auto (RBC) [Entitic vol] Ordered By: Gary Madsen on 05-23-2024 MCV (RBC) [Entitic vol] MCV [Entitic volume] by Automated count 83.5-101 [facility] Magnesiumon 05-23-2024 Magnesium [Mass/Vol] 1.8 mg/dL Low 1.9-2.7 [facility] Comment on above: Result Comment: PERF ORMED BY: [place] [address] PATHOLOGIST IT HELP DESK TECHNICIAN MILKA PEDERSON M.D. Performed By: #### P T, MG, CK, BNP, CMP, HS TROP, PTT #### [address] Magnesium [Mass/volume] in S juliana or PlasmaOrdered By: Gary Madsen on 05-23-2024 Magnesium [Mass/Vol] Magnesium [Mass/volume] in Serum or Plasma Low 1.9-2.7 [facility] Monocyte distribution width [Entitic volume] in Blood by AutomatedOrdered By: Gary Madsen on 05-23-2024 Monocyte distribution width Auto (Bld) [Entitic vol] Monocyte distribution width [Entitic volume] in Blood by Automated High 0.00-20.00 [facility] Comment on above: For adults in ED, MD W > 20.0 may be associated with a higher risk of sepsis during the first 12 hrs of hospital admission Monocytes Auto (Bld) [#/Vol] Ordered By: Gary Madsen on 05-23-2024 Monocytes (Bld) [#/Vol] Automated blood monocyte count 0.0-0.8 [facility] Monocytes/100 WBC Auto (Bld) Ordered By: Gary Madsen on 05-23-2024 Monocytes/100 WBC (Bld) Automated monocyte % . [facility] Mucus [Presence] in Urine by AutomatedOrdered By: Gary Madsen on 05-23-2024 Mucus Auto Ql (U) Mucus [Presence] in Urine by Automated Abnormal [facility] Natriuretic peptide B [Mass/ Vol]Ordered By: Gary Madsen on 05-23-2024 Natriuretic peptide B (Bld) [Mass/Vol] BNP ser/plas High 5-100 [facility] Neutrophils Auto (Bld) [#/Vo l]Ordered By: Gary Madsen on 05-23-2024 Neutrophils (Bld) [#/Vol] Neutrophils [#/volume] in Blood by Automated count 1.8-7.7 [facility] Neutrophils/100 WBC Auto (Bl d)Ordered By: Gary Madsen on 05-23-2024 Neutrophils/100 WBC (Bld) Automated neutrophil % . [facility] Nitrite Test strip Ql (U)Ord ered By: Gary Madsen on 05-23-2024 Nitrite Ql (U) Nitrite [Presence] i n Urine by Test strip Negative [facility] No Panel InformationOrdered By: Gary Madsen on 05-23-2024 Estimated GFR (CKD-EPI) > 60.0 mL/Min [facility] Creatinine Clearance (Chem 56.40 [facility] Nucleated erythrocytes [Pres ence] in Blood by Automated countOrdered By: Gary Madsen on 05-23-2024 Nucleated RBC Auto Ql (Bld) Nucleated erythrocytes [Presence] in Blood by Automated count 0-0.5 [facility] Partial Thromboplastin Timeo n 05-23-2024 aPTT Coag (Bld) [Time] 33.1 s Normal 25.1-36.5 [facility] Comment on above: Result Comment: A he matocrit value greater than 55% may lead to inaccurate results in coagulation testing. Patients having hematocrit values >55% require a special collection tube for coagulation studies. Please contact the laboratory at [phone] for redraw instructions. PERFORMED BY: [place] [id number] PATHOLOGIST IT HELP DESK TECHNICIAN MILKA PEDERSON M.D. Performed By: #### A DDONUAPLUS #### [address] Platelet mean volume Auto (B ld) [Entitic vol]Ordered By: Gary Madsen on 05-23-2024 Platelet mean volume (Bld) [Entitic vol] Platelet mean volume [Entitic volume] in Blood by Automated count 6.6-10.1 [facility] Platelets Auto (Bld) [#/Vol] Ordered By: Gary Madsen on 05-23-2024 Platelets (Bld) [#/Vol] Platelets [#/volume] in Blood by Automated count 150-450 [facility] Potassium [Moles/volume] in Serum or PlasmaOrdered By: Gary Madsen on 05-23-2024 Potassium [Moles/Vol] Potassium [Moles/volume] in Serum or Plasma 3.5-5.1 [facility] Protein Test strip (U) [Mass /Vol]Ordered By: Gary Madsen on 05-23-2024 Protein (U) [Mass/Vol] Protein [Mass/vol ume] in Urine by Test strip High Negative [facility] Protein [Mass/volume] in Ser um or PlasmaOrdered By: Gary Madsen on 05-23-2024 Protein [Mass/Vol] Protein [Mass/volume ] in Serum or Plasma Low 6.4-8.9 [facility] Prothrombin Time INRon 05-23 INR Coag (PPP) [Relative time] 1.5 {INR} Normal [facility] Comment on above: Result Comment: INR Therapeutic Range A) Pre- and Peroperative OAT started two weeks before surgery. NOT HIP SURGERY: 1.5 - 2.5 HIP SURGERY: 2 - 3 B) Primary and secondary prevention of venous THROMBOSIS: 2 - 3 C) Active venous thrombosis, pulmonary embolism and prevention of recurrent venous thrombosis: 2 - 3 D) Prevention of arterial thromboembolism including patients with mechanical heart valves: 3 - 4.5 Performed By: #### P T, MG, CK, BNP, CMP, HS TROP, PTT #### [facility] [address] [id number] [facility] PT Coag (PPP) [Time] 17.4 s High 9.0-12.9 [facility] Comment on above: Result Comment: A he matocrit value greater than 55% may lead to inaccurate results in coagulation testing. Patients having hematocrit values >55% require a special collection tube for coagulation studies. Please contact the laboratory at [phone] for redraw instructions. Performed By: #### P T, MG, CK, BNP, CMP, HS TROP, PTT #### [facility] [address] [id number] [facility] Prothrombin time (PT)Ordered By: Gary Madsen on 05-23-2024 PT Coag (PPP) [Time] Prothrombin time (PT) High 9.0- 12.9 [facility] Comment on above: A hematocrit value g reater than 55% may lead to inaccurate results in coagulation testing. Patients having hematocrit values >55% require a special collection tube for coagulation studies. Please contact the laboratory at [phone] for redraw instructions. RBC Auto (Bld) [#/Vol]Ordere d By: Gary Madsen on 05-23-2024 RBC (Bld) [#/Vol] Erythrocytes [#/volume] in Blood by Automated count Low 3.90-5.60 [facility] Serum or plasma albumin/glob ulin mass ratioOrdered By: Gary Madsen on 05-23-2024 Albumin/Globulin [Mass ratio] Serum or plasma albumin/globulin mass ratio [facility] Serum or plasma anion gap de terminationOrdered By: Gary Madsen on 05-23-2024 Anion gap [Moles/Vol] Serum or plasma an ion gap determination 6.0-15.0 [facility] Sodium [Moles/volume] in Ser um or PlasmaOrdered By: Gary Madsen on 05-23-2024 Sodium [Moles/Vol] Sodium [Moles/volume ] in Serum or Plasma 136-145 [facility] Specific gravity Test strip (U) [Rel density]Ordered By: Gary Madsen on 05-23-2024 Specific gravity (U) [Rel density] Specific gravity of Urine by Test strip 1.001-1.030 [facility] Troponin I High Sensitivityo n 05-23-2024 Troponin I High Sensitivity 24 High 0-20 [facility] Comment on above: Result Comment: The Troponin units of report have been changed to meet the Chest Pain Accreditation requirement, element EC5.M1l2. Troponin units are changed from pg/ml to ng/L. Also, the decimal is removed and results are in whole numbers. PERFORMED BY: [place] [address] PATHOLOGIST IT HELP DESK TECHNICIAN MILKA PEDERSON M.D. Performed By: #### P T, MG, CK, BNP, CMP, HS TROP, PTT #### [address] Troponin I.cardiac [Mass/vol ume] in Serum or Plasma by Detection limit <= 0.01 ng/Ordered By: Gary Madsen on 05-23-2024 Troponin I.cardiac DL <= 0.01 ng/mL [Mass/Vol] Troponin I.cardiac [Mass/volume] in Serum or Plasma by Detection limit <= 0.01 ng/ High 0-20 [facility] Comment on above: The Troponin units o f report have been changed to meet the Chest Pain Accreditation requirement, element EC5.M1l2. Troponin units are changed from pg/ml to ng/L. Also, the decimal is removed and results are in whole numbers. Urea nitrogen [Mass/volume] in Serum or PlasmaOrdered By: Gary Madsen on 05-23-2024 Urea nitrogen [Mass/Vol] Urea nitrogen [Mass/volume] in Serum or Plasma 7-25 [facility] Urobilinogen Test strip (U) [Mass/Vol]Ordered By: Gary Madsen on 05-23-2024 Urobilinogen (U) [Mass/Vol] Urobilinogen [Mass/volume] in Urine by Test strip Normal [facility] WBC Auto (Bld) [#/Vol]Ordere d By: Gary Madsen on 05-23-2024 WBC (Bld) [#/Vol] Leukocytes [#/volume ] in Blood by Automated count 4.1-10.5 [facility] X-ray reportOrdered By: Bry Pike on 05-23-2024 Study report [facility] Main [address] [address] XRay Report Signed Patient: Bennie Dennis MR#: [id number] : 1945 Acct:[id number] Age/Sex: 78 / M ADM Date: Loc: ER Room: Type: [facility] ER Attending Dr: Copies to: Gary Madsen APRN~ Ordering Provider: Gary Madsen APRN Date of Service: 05/23/24 XR/XR chest 2V*: Urogenital XR chest 2V* 05/23/2024 11:22 AM SIGNS AND SYMPTOMS: Urogenital pain, for the catheter placement PROTOCOL: Frontal and lateral radiographs of the chest COMPARISON: None FINDINGS: The trachea is midline. Atherosclerotic changes are noted in the thoracic aorta. There is a dual lead pacer device on the left. The heart and mediastinal structures are within normal limits. The lung parenchyma is clear. The bony thorax is intact. Degenerative changes are noted in the shoulders and thoracic spine. XR/XR chest 2V* IMPRESSION: No acute cardiopulmonary pathology. Chronic-appearing changes are noted as above. Impression dictated by: Bry Pike M.D.05/23/2024 12:15 PM Dictation Location: [facility]-- Transcribed By: CAMILO 05/23/24 121 Dictated By: Bry Pike II, MD 05/23/24 121 Signed By: 05/23/241214 [facility] Work Phone: XR chest 2V*on 05-23-2024 XR chest 2V* [facility] Main [address] [address] XRay Report Signed Patient: Bennie Dennis MR#: [id number] : 1945 Acct:[id number] Age/Sex: 78 / M ADM Date: 05/23/24 Loc: ER Room: Type: [facility] ER Attending Dr: Copies to: Gary Madsen APRN Ordering Provider: Gary Madsen APRN Date of Service: 05/23/24 XR/XR chest 2V*: Urogenital XR chest 2V* 05/23/2024 11:22 AM SIGNS AND SYMPTOMS: Urogenital pain, for the catheter placement PROTOCOL: Frontal and lateral radiographs of the chest COMPARISON: None FINDINGS: The trachea is midline. Atherosclerotic changes are noted in the thoracic aorta. There is a dual lead pacer device on the left. The heart and mediastinal structures are within normal limits. The lung parenchyma is clear. The bony thorax is intact. Degenerative changes are noted in the shoulders and thoracic spine. XR/XR chest 2V* IMPRESSION: No acute cardiopulmonary pathology. Chronic-appearing changes are noted as above. Impression dictated by: Bry Pike M.D.05/23/2024 12:15 PM Dictation Location: [place] [address] Transcribed By: CAMILO 05/23/24 1215 Dictated By: Bry Pike II, MD 05/23/24 1213 Signed By: 05/23/24 1215 Normal [facility] aPTT in Platelet poor plasma by Coagulation assayOrdered By: Gary Madsen on 05-23-2024 aPTT Coag (PPP) [Time] Activated partial thromboplastin time (aPTT) in platelet poor plasma by coagulation a 25.1-36.5 [facility] Comment on above: A hematocrit value g reater than 55% may lead to inaccurate results in coagulation testing. Patients having hematocrit values >55% require a special collection tube for coagulation studies. Please contact the laboratory at [phone] for redraw instructions. pH Test strip (U)Ordered By: Gary Madsen on 05-23-2024 pH (U) pH of Urine by Test strip 5.0-9.0 [facility] Coding Queryon 05-21-2024 Coding Query Coding Query From: Crystal Charles RN To: Azucena CROWLEY; Cc: Román lUrich; Sent: 05/21/2024 10:30:36 EST ! Subject: Coding Query Due Date/Time: 05/23/2024 10:30:00 EST Caller Name: BENNIE DENNIS; Caller Number: Denzel , M Documentation in the medical record indicates this patient has been admitted with or diagnosed as having: Pneumonia The following is also documented in the medical record: dc summary-Pt was treated also with IV Vanco/Zosyn while assessing for bacterial/viral pneumonia vs above. Blood cultures obtained on admission h ave remained negative t/o hospitalization. Pt was seen by pulmonology on consultation ; pt was treated w/med nebs, flutter, IS, mucinex and required supplemental oxygen as pt also w/past medical history of smoking and likely w/undiagnosed COPD as well. Based on your medical judgment, can you please clarify if the diagnosis is: [___]Ruled in [___]Ruled out [___]Other (please specify): In responding to this request, please exercise your independent professional judgement. The fact that a question is asked does not imply that any particular answer is desired or expected. Thank you! Crystal [phone] From: Azucena CROWLEY To: Crystal Charles RN; Sent: 05/21/2024 17:43:55 EST Subject: RE: Coding Query Caller Name: BENNIE DENNIS; Caller Number: Denzel , M pt for sure had med reaction BUT reaction caused pneumonia which was likely viral and not bacterial Normal [facility] Coding Query Coding Query From: Nina Wren RN To: Azucena CROWLEY; Sent: 05/15/2024 08:16:34 EST ! Subject: Coding Query Due Date/Time: 05/16/2024 08:16:00 EST Caller Name: BENNIE DENNIS; Caller Number: Denzel , M The following diagnosis was indicated for this patient: Sepsis with septic shock The Progress Notes and/or Discharge Summary, documentation for this patient stated the followin/24 Progress note:# 2. Shock Suspect distributive shock 2/2 drug interaction (Sterlara) vs. adrenal insuff vs. possible sepsis - ruled out w/ neg. infectious w/u - abx are empirical #4 PNA Stelara can cause cryptogenic organizing pneumonia vs. eosinophilic pneumonitis however eosinophil level is 0 + immunocompromised 2/2 stelara Discharge summary: 78-year-old male who presented to the hospital with acute hypoxic respiratory failure secondary to opportunistic infection/drug reaction to Stelara. Patient was in septic shock on admission. Patient was treated with aggressive IV fluids. Was initially thought patient had adrenal insufficiency as pt had abruptly stopped taking pred 60mg daily dosing after 30 days of tx. Pt was treated with aggressive steroid replacement. Pt required Levophed gtt due to acute hypotension. Home meds were held at this time. Pt was treated also with IV Vanco/Zosyn while assessing for bacterial/viral pneumonia vs above. Blood cultures obtained on admission h ave remained negative t/o hospitalization. Pt was seen by pulmonology on consultation ; pt was treated w/med nebs, flutter, IS, mucinex and required supplemental oxygen as pt also w/past medical history of smoking and likely w/undiagnosed COPD as well. Based on your medical judgment, can you please clarify which is the wording most closely reflecting the condition of the patient? [___]suspected sepsis with septic shock [___]suspected sepsis with distributive shock [___]suspected sepsis ruled out [___]distributive shock [___]shock due to adrenal insufficiency [___]Other: Present on Admission [___] Y = Diagnosis was present at time of inpatient admission [___] N = Diagnosis was not present at time of inpatient admission In responding to this request, please exercise your independent professional judgement. The fact that a question is asked does not imply that any particular answer is desired or expected. Thank you!nina [phone] From: Azucena CROWLEY To: Holger RN, Nina Sheridan; Sent: 05/21/2024 17:26:41 EST Subject: RE: Coding Query Caller Name: BENNIE DENNIS; Caller Number: Denzel , M sepsis with distributive shock Normal [facility] Lab Miscellaneous-LCon 05-17 Lab Miscellaneous COMMENT Invalid Interpretation Code [facility] Comment on above: Result Comment: Test Ordered: [id number] Pneumocystis PCR Result Negative ML ADDITIONAL INFORMATION This test was developed and its performance characteristics determined by [facility] in a manner consistent with CLIA requirements. This test has not been cleared or approved by the U.S. Food and Drug Administration. REFERENCE RANGE: Not Applicable Specimen Source BAL ML Performed at: [facility] [id number] PhD Brandyn Madera Performed By: #### 1 [id number] #### [facility] [address] [place] [address] Non-Roofing Supervisor Cytology Reporton Non-Roofing Supervisor Cytology Report [address] [place] [address]- Non-Roofing Supervisor Cytology Report Collected Date/Time: 05/11/2024 13:31 EST Pathologist: Shaun STEWART PhD, Kj Martins Received Date/Time: 05/14/2024 08:34 EST Angelo STEWART, Pooja Stephens MD, Pooja Brito Non-Roofing Supervisor Cytology Report - 05/17/2024 12:21 EST - Auth (Verified) Final Diagnosis A: GENERAL LUNG WASHINGS, BRONCHOSCOPY: - OCCASIONAL ATYPICAL SQUAMOUS CELLS, INCONCLUSIVE. B: LEFT LOWER LOBE OF LUNG, BRONCHOALVEOLAR LAVAGE: - OCCASIONAL ATYPICAL SQUAMOUS CELLS, INCONCLUSIVE. (Electronic Signature) Kj Dunn MD PhD 05/17/2024 12:21 Clinical Information Pulmonary infiltrate Procedure: Bronchoscopy Specimen Received A.General lung washing B.Left lower lobe BAL Gross Description A: Received approximately 22 mL of colorless cloudy turbid fluid. Approximately 10 mL of fluid and 30 mL of ThinPrep CytoLyt solution added, sent for processing. B: Received approximately 30 mL of colorless slightly turbid fluid. Approximately 10 mL of fluid and 30 mL of ThinPrep CytoLyt solution added, sent for processing. (DC) DC:MCA Microscopic Description Microscopic examination performed unless gross only specified. This report was transcribed using voice recognition technology and might contain unintended computerized news library director errors. Normal [facility] Comment on above: Performed By: #### [id number] #### [facility] [address] [place] [address] Coding Queryon 05-15-2024 Coding Query Coding Query From: Nina Wren RN To: Azucena CROWLEY; Sent: 05/15/2024 08:16:34 EST ! Subject: Coding Query Due Date/Time: 05/16/2024 08:16:00 EST Caller Name: BENNIE DENNIS; Caller Number: , M The following diagnosis was indicated for this patient: Sepsis with septic shock The Progress Notes and/or Discharge Summary, documentation for this patient stated the followin/24 Progress note:# 2. Shock Suspect distributive shock 2/2 drug interaction (Sterlara) vs. adrenal insuff vs. possible sepsis - ruled out w/ neg. infectious w/u - abx are empirical #4 PNA Stelara can cause cryptogenic organizing pneumonia vs. eosinophilic pneumonitis however eosinophil level is 0 + immunocompromised 2/2 stelara Discharge summary: 78-year-old male who presented to the hospital with acute hypoxic respiratory failure secondary to opportunistic infection/drug reaction to Stelara. Patient was in septic shock on admission. Patient was treated with aggressive IV fluids. Was initially thought patient had adrenal insufficiency as pt had abruptly stopped taking pred 60mg daily dosing after 30 days of tx. Pt was treated with aggressive steroid replacement. Pt required Levophed gtt due to acute hypotension. Home meds were held at this time. Pt was treated also with IV Vanco/Zosyn while assessing for bacterial/viral pneumonia vs above. Blood cultures obtained on admission h ave remained negative t/o hospitalization. Pt was seen by pulmonology on consultation ; pt was treated w/med nebs, flutter, IS, mucinex and required supplemental oxygen as pt also w/past medical history of smoking and likely w/undiagnosed COPD as well. Based on your medical judgment, can you please clarify which is the wording most closely reflecting the condition of the patient? [___]suspected sepsis with septic shock [___]suspected sepsis with distributive shock [___]suspected sepsis ruled out [___]distributive shock [___]shock due to adrenal insufficiency [___]Other: Present on Admission [___] Y = Diagnosis was present at time of inpatient admission [___] N = Diagnosis was not present at time of inpatient admission In responding to this request, please exercise your independent professional judgement. The fact that a question is asked does not imply that any particular answer is desired or expected. Thank you!nina [phone] [facility] 05-15-19 [facility] Case Information Case Priority: None Programs: -- Referral Source: Machine Set Up Technician Referral Reason: Care coordination Case Type: Transition Care Management Risk Score: -- Case Status: Enrolled (May 15, 2024) Date Assigned: May 15, 2024 Assigned By: Kaiden Jackson Date Enrolled: May 15, 2024 Assigned Primary Personnel: Kaiden Jackson Assigned Secondary Personnel: -- Case Physician: Pete Gar MD Ongoing Adhesive capsulitis of shoulder ASCVD (arteriosclerotic cardiovascular disease) Blood in stool BMI 22.0-22.9, adult Chronic anticoagulation DDD (degenerative disc disease), lumbar Elevated liver enzymes Esophageal dysphagia Hemiparesis Hx of arterial ischemic stroke Hx of heart artery stent Leg swelling Loose stools Nonsmoker Pancreatic insufficiency Paroxysmal A-fib Primary biliary cholangitis Prostate disorder Ulcerative colitis Weakness Historical No qualifying data Procedure/Surgical History Bronchoscopy abnormal (05/11/2024), Esophagogastroduodenos copy (03/28/2024), Flexible sigmoidoscopy (03/28/2024), Cardiac catheter, Carotid endarterectomy, Colonoscopy. Home Medications Albuterol (Eqv-Ventolin HFA) 90 mcg/inh inhalation aerosol, 180 mcg= 2 inh, Inhalation, q6hr atorvastatin 80 mg Tab, See Instructions carvedilol 12.5 mg Tab, 12.5 mg= 1 tab(s), Oral, BID Creon 36,000 units oral delayed release capsule, See Instructions, 3 refills Entresto 24 mg-26 mg oral tablet, 1 tab(s), Oral, BID, Not taking: Medication was placed on hold at [facility] D/C 05/14 until seen by cardiology ferrous sulfate 325 mg Tab, 325 mg= 1 tab(s), Oral, BIDWM ipratropium 0.02% Inh Alisha 2.5 mL, 500 mcg= 2.5 mL, NEB, QID, Investigating: Still needs to pear picker- needs nebulizer levalbuterol 0.63 mg/3 mL Inh Alisha, 0.63 mg= 3 mL, Inhalation, QID, Investigating: Still needs to pear picker- needs nebulizer omeprazole 40 mg Cap-DR, 40 mg= 1 cap(s), Oral, Daily, 3 refills One-A-Day [employer] Health Formula, 1 tab(s), Oral, Daily PreserVision AREDS, See Instructions spironolactone 25 mg Tab, 0.5 tab, Oral, Daily, Not taking: Medication was placed on hold at [facility] D/C 05/14 until seen by cardiology Vitamin D3 10,000 intl units oral capsule, 250 mcg= 1 cap(s), Oral, Daily warfarin 4 mg Tab, 4 mg= 1 tab(s), Oral, Daily Allergies No Known Medication Allergies Social History Alcohol - Denies Alcohol Use, 09/06/2023 Substance Abuse - Denies Substance Abuse, 09/06/2023 Tobacco - Denies Tobacco Use, 03/29/2024 Former smoker, quit more than 30 days ago Tobacco Use:., 05/06/2024 Never (less than 100 in lifetime) Tobacco Use:. Never Smokeless Tobacco Use:. Household tobacco concerns: No. Yes, 05/01/2024 Former smoker, quit more than 30 days ago Tobacco Use:., 04/02/2024 Family History Acute myocardial infarction: Mother. Heart disease: Mother. Leukemia: Father. Screenings and Assessments 05/15/24 10:10:00 Result Name Value Comment Phone Call Monitoring Consent Agreed to continue call Phone Verification Patient Information Full name, street address and date of verified CM Program Enrollment Provides verbal consent for enrollment Goals and Interventions Care Plan Progress Note Admit Date: 05/06/24 Date of Discharge: 05/14/24 Follow-up appointment scheduled? yes, 05/24/24 at 1500 with PCP Did you understand your discharge instructions? yes Are you able to follow them? yes Did you receive new medications? yes; iron 325 mg BID, Ventolin inhaler 2 puffs Q 6 hr, ipratropium nebulizer QID #60, Levalbuterol nebulizer QID #60 Have you filled the Rx's? iron yes, inhaler/breathing treatments not yet, waiting to get nebulizer d/t cost Are you taking them as prescribed? yes Are you having difficulty eating or swallowing your pills? no Are you having any stomach upset, diarrhea or constipation? no How are you sleeping? sleeping good Are you having any pain? no Do you have everything you need at home to care for yourself? yes Do you have Home Health? yes, nurse scheduled for today, spouse to inquire if PT to be continued Called patient for initial Transitional Care Management Program Call. Readmission risk is low. 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 Normal [facility] COAGULATIONOrdered By: Aston Paulino on 05-14-2024 INR Coag (PPP) [Relative time] 1.95 {INR} Invalid Interpretation Code [facility] Auto Coag Comment on above: Interpretive Data: I NR results are specifically intended to assess patients stabilized on long-term Anticoagulation therapy suggested INR s Less Intensive Anticoagulation 2.0 3.0 Conventional Range 3.0 4.5 PT Coag (PPP) [Time] 22.0 s High 9.4 - 1 2.5 second(s) [facility] Auto Coag Comment on above: Interpretive Data: 1 5 days - 4 weeks 1 - 5 months 6 -11 months 1-5 years 6-10 years 11 -17 years Mean: 11.2 (9.5-12.6) Mean: 11.0 (9.7-12.8) Mean: 11.0 (9.8-13.0) Mean: 11.3 (9.9-13.4) Mean: 11.7 (10.0-14.6) Mean: 11.8 (10.0 - 14.1) Pediatric Reference ranges were obtained from a study by Marc Stewart et al. prepared from 1437 samples obtained at 7 different centers using the same coagulation reagent and instrumentation as [facility]. Currently there are no coagulation studies available worldwide for children to 14 days, and no normal ranges. 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 This Is Your Medications List albuterol (Albuterol (Eqv-Ventolin HFA) 90 mcg/inh inhalation aerosol) atorvastatin (atorvastatin 80 mg Tab) carvedilol (carvedilol 12.5 mg Tab) cholecalciferol (Vitamin D3 10,000 intl units oral capsule) ferrous sulfate (ferrous sulfate 325 mg Tab) ipratropium (ipratropium 0.02% Inh Alisha 2.5 mL) levalbuterol (levalbuterol 0.63 mg/3 mL Inh Alisha) multivitamin (One-A-Day Men's Health Formula) omeprazole (omeprazole 40 mg Cap-DR) pancrelipase (Creon 36,000 units oral delayed release capsule) sacubitril-valsartan (Entresto 24 mg-26 mg oral tablet) spironolactone (spironolactone 25 mg Tab) warfarin (warfarin 4 mg Tab) [Image Removed: STOP]Stop taking these medications aspirin (aspirin 81 mg Oral EC Tab) ustekinumab (Stelara) Procedure History Bronchoscopy abnormal (05/11/2024), Esophagogastroduodenos copy (03/28/2024), Flexible sigmoidoscopy (03/28/2024), Cardiac catheter, Carotid endarterectomy, Colonoscopy. Discharge Vitals Temperature (Axillary) 36.3 ???C Heart Rate (Monitored) 92 Respiratory Rate 18 Blood Pressure 118/69 Height 172.72 cm Weight 66.6 kg What to do next Instructions From Your Doctor Event Name Event Result Discharge Activity Activity as tolerated Discharge Diet(s) Regular Pending Diagnostic Test Results Biopsy/pathology Discharge Instructions DISCONTINUE STELA AND DR HASSAN WILL DISCUSS WITH YOU IN GI OFFICE OTHER ALTERNATIVES.DO NOT TAKE ENTRESTO OR SPIRONALACTONE UNTIL CARDIOLOGY CLEARS AT FOLLOW UP APPT.CHECK INR IN 2 DAYS AND TREAT BEFORE Previously Scheduled Follow-Up Appointments 2024 3:00 PM EST With: Cong STEWART, Pete Hooker Where: [address] [address]- 2024 9:15 AM EDT With: Debra STEWART, Eloisa Cheung Where: [facility] [address] [address]- 2024 10:00 AM EDT With: Cong STEWART, Pete Hooker Where: [address] [address]- Tuesday 11:00 AM EDT With: Where: [address] [address]- New Follow Up Appointments after Discharge Follow Up with Pete Gar When: 05/24/2024 03:00 PM EST Comments: Keep scheduled appointment Where: [address] [place] [address]- Business (2) Follow Up with Linda Enrique When: Comments: Dr. Enrique's office will call you for a follow up appointment. If you do not hear form them is a few days, then call for hospital followup appointment in regards to urinary retention /gill. Thank you. Follow Up with Eloisa Hassan When: Comments: Call for followup appointment 2 weeks. Where: [address], [address] [place] [phone] Business (1) Follow Up with Pooja Stephens When: Comments: Call for followup appointment 3 weeks Where: [address] [facility] [place] [phone] Business (1) Medications What How Much When Why Instructions Next Dose New albuterol (Albuterol (Eqv-Ventolin HFA) 90 mcg/ inh inhalation aerosol) 2 Inhalation Inhalation Every 6 hours Pickup at [facility]/pharmacy #[id number] Today at 4:00 PM New ferrous sulfate (ferrous sulfate 325 mg Tab) 1 Tablets By Mouth Twice a day (with meals) Pickup at [facility]/pharmacy #[id number] Today at 5:00 PM New ipratropium (ipratropium 0.02% Inh Alisha 2.5 mL) 2.5 Milliliter Nebulized inhalation (aerosol) 4 times a day PNA (pneumonia) Pickup at [facility]/pharmacy #[id number] Today at 4:00 PM New levalbuterol (leva (more content not included)... Normal [facility] [place] 05-14-2024 WB Tube Collected Yes Invalid Interpretation Code [facility] Comment on above: Performed By: #### [id number] ####[facility] [id number] [place] [address] Inpatient Clinical Summaryon 05-14-2024 Inpatient Clinical Summary Inpatient Clinical Summary [address] [address] Clinical Summary Person Information: Name: BENNIE DENNIS Age: 78 Years : 1945 Sex: Male PCP: Pete Gar MD Marital Status: Race: White Ethnicity: Non- or Language: Citizen Of [place] Visit Id: Visit Reason: Respiratory problem; Blood in stool; Weakness or fatigue; ABD [id number] WALKING-WEAKNESS Speciality: Acuity: Enc Type: Inpatient Med Service: Medical Arrival: 05/06/2024 10:29:54 Discharge: Dispo Type: Admit to [facility] Address: [address] [place] [phone] Provider Notes: Diagnosis: 1:Acute hypoxic respiratory failure; 2:Shock; 3:Acute hypotension; 4:PNA (pneumonia); 5:Pleural effusion on right; 6:Acute sinusitis; 7:Anemia; 8:Urinary retention with incomplete bladder emptying; 9:Acute kidney injury; 10:Diarrhea; 11:Hypokalemia; 12: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; 13:Chronic systolic heart failure; 14:Paroxysmal A-fib; 15:Supratherapeutic INR; 16:HTN (hypertension); 17:HLD (hyperlipidemia); 18:Pancreatic insufficiency; 19:UC (ulcerative colitis); 20:BPH (benign prostatic hyperplasia); 21:History of CVA with residual deficit; 22:On deep vein thrombosis (DVT) prophylaxis Problems Active Leg swelling Pancreatic insufficiency Primary biliary cholangitis Weakness Elevated liver enzymes Blood in stool Loose stools Chronic anticoagulation Esophageal dysphagia Nonsmoker BMI 22.0-22.9, adult Paroxysmal A-fib Hx of heart artery stent Ulcerative colitis Hx of arterial ischemic stroke Hemiparesis Prostate disorder Adhesive capsulitis of shoulder DDD (degenerative disc disease), lumbar ASCVD (arteriosclerotic cardiovascular disease) Smoking Status: Former Smoker Functional Status: Sensory Deficits: Hearing deficit, left ear, Hearing deficit, right ear History of Falls: Mobility Assistance Prior to Admission: ADLs: Independent Current Level of Assistance for Self-Care/Mobility: Cognitive Status: Oriented x 3 Allergies No Known Medication Allergies Measurements: Height: 172.72 cm Weight: 66.6 kg Blood Pressure: 118 mmHg / 69 mmHg BMI: 21.16 kg/m2 Procedures Bronchoscopy abnormal (05/11/2024) Immunizations No Immunizations Documented This Visit Final Med List: albuterol (Albuterol (Eqv-Ventolin HFA) 90 mcg/inh inhalation aerosol) 2 Inhalation Inhalation every 6 hours. Refills: 0. atorvastatin (atorvastatin 80 mg Tab) TAKE 1 TABLET DAILY. Refills: 3. carvedilol (carvedilol 12.5 mg Tab) 1 Tablets By Mouth 2 times a day. cholecalciferol (Vitamin D3 10,000 intl units oral capsule) 1 Capsules By Mouth every day. ferrous sulfate (ferrous sulfate 325 mg Tab) 1 Tablets By Mouth twice a day (with meals). Refills: 0. ipratropium (ipratropium 0.02% Inh Alisha 2.5 mL) 2.5 Milliliter Nebulized inhalation (aerosol) 4 times a day. Refills: 0. levalbuterol (levalbuterol 0.63 mg/3 mL Inh Alisha) 3 Milliliter Inhalation 4 times a day. Refills: 0. multivitamin (One-A-Day Men's Health Formula) 1 Tablets By Mouth every day. omeprazole (omeprazole 40 mg Cap-DR) 1 Capsules By Mouth every day. Refills: 3. pancrelipase (Creon 36,000 units oral delayed release capsule) 1 cap with meals and 1 with each snack. contents of capsule may be mixed with soft foods such as applesauce. Refills: 3. sacubitril-valsartan (Entresto 24 mg-26 mg oral tablet) 1 Tablets By Mouth 2 times a day. spironolactone (spironolactone 25 mg Tab) 0.5 tab By Mouth every day. warfarin (warfarin 4 mg Tab) 1 Tablets By Mouth every day. Care Team Members: Attending Physician: Pan Gar DO Consulting Physician: Duane Lund Jr., PA-C Referring Physician: Follow up: With: Address: When: Eloisa Hassan [address] [place] [phone] Business (1) Comments: Call for followup appointment 2 weeks. With: Address: When: Pooja Stephens [address], [facility] [place] [phone] Business (1) Comments: Call for followup appointment 3 weeks With: Address: When: Linda Enrique Comments: Call for hospital followup appointment in regards to urinary retention /gill With: Address: When: Pete Gar [address] [place] [address] Business (2) 05/24/2024 3:00 PM Comments: Keep scheduled appointment Type Location Start [facility] Follow Up w/TCM [facility] [place] 05/24/2024 3:00 PM 05/24/2024 3:30 PM Confirmed BADH Follow Up [facility] 07/05/2024 9:15 AM 07/05/2024 9:30 AM Confirmed [facility] 08[facility]30[facility]2024 10:00 AM 08/30/2024 10:15 AM Confirmed Medicare Wellness Subsequent [facility] 11/21/2024 11:00 AM 11/21/2024 12:00 PM Confirmed Patient Education Information: Normal [facility] Inpatient Patient Summaryon 05-14-2024 Inpatient Patient Summary Inpatient Patient Summary [address] [address] Patient Discharge Instructions PERSON INFORMATION Name: BENNIE DENNIS Date of : 1945 Current Date: 05/14/2024 12:18:54 PHYSICIANS Admitting Physician: Pan Gar DO Primary Care Physician: Pete Gar MD PCP Comment: Discharge Diagnosis: 1:Acute hypoxic respiratory failure; 2:Shock; 3:Acute hypotension; 4:PNA (pneumonia); 5:Pleural effusion on right; 6:Acute sinusitis; 7:Anemia; 8:Urinary retention with incomplete bladder emptying; 9:Acute kidney injury; 10:Diarrhea; 11:Hypokalemia; 12: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; 13:Chronic systolic heart failure; 14:Paroxysmal A-fib; 15:Supratherapeutic INR; 16:HTN (hypertension); 17:HLD (hyperlipidemia); 18:Pancreatic insufficiency; 19:UC (ulcerative colitis); 20:BPH (benign prostatic hyperplasia); 21:History of CVA with residual deficit; 22:On deep vein thrombosis (DVT) prophylaxis Condition at Discharge: BENNIE Harrison has been given the following list of follow-up instructions, prescriptions, and patient education materials: PATIENT FOLLOW-UP INFORMATION Diet: Regular Discharge Activity: Activity as tolerated Discharge Restrictions: Wound Care Instructions: Remove Your Dressing In Days Call Your Doctor For: IF UNABLE TO CONTACT YOUR PHYSICIAN AND YOU FEEL IT IS AN EMERGENCY, GO TO THE NEAREST EMERGENCY ROOM OR CALL 911 Home Treatment: Devices/Equipment: Cane Special Services: Additional Instructions: DISCONTINUE STELARA AND DR HASSAN WILL DISCUSS WITH YOU IN GI OFFICE OTHER ALTERNATIVES. DO NOT TAKE ENTRESTO OR SPIRONALACTONE UNTIL CARDIOLOGY CLEARS AT FOLLOW UP APPT. CHECK INR IN 2 DAYS AND TREAT BEFORE Primary Care Physician to provide the following pending test results: Biopsy/pathology Follow up: With: Address: When: Eloisa Hassan [address], [address] [place] [phone] Business (1) Comments: Call for followup appointment 2 weeks. With: Address: When: Pooja Stephens [address], [place] [phone] Business (1) Comments: Call for followup appointment 3 weeks With: Address: When: Linda Enrique Comments: Call for hospital followup appointment in regards to urinary retention /gill With: Address: When: Pete Gar [address] [place] [phone] Business (2) 05/24/2024 3:00 PM Comments: Keep scheduled appointment In the event that this physician does not participate in your insurance network, please consult with your insurance company to find a nearby participating provider. Type Location Start [facility] Follow Up w/TCM [facility] 05/24/2024 3:00 PM 05/24/2024 3:30 PM Confirmed BADH Follow Up [facility] 07/05/2024 9:15 AM 07/05/2024 9:30 AM Confirmed FM Open [facility] 08/30/2024 10:00 AM 08/30/2024 10:15 AM Confirmed Medicare Wellness Subsequent [facility] 11/21/2024 11:00 AM 11/21/2024 12:00 PM Confirmed Comment: ELVER Lopez ERIC P, have received the attached patient education materials/instructions and have verbalized understanding: Patient Signature Date Clinican/Nurse Signature ___ Date HERE ARE THE MEDICATION CHANGES THAT OCCURRED DURING YOUR HOSPITAL STAY New Medications [id number] [address], [place] [phone], [phone] albuterol (Albuterol (Eqv-Ventolin HFA) 90 mcg/inh inhalation aerosol) 2 Inhalation Inhalation every 6 hours. Refills: 0. Last Dose: ___Next Dose: ___ ferrous sulfate (ferrous sulfate 325 mg Tab) 1 Tablets By Mouth twice a day (with meals). Refills: 0. Last Dose: ___Next Dose: ___ ipratropium (ipratropium 0.02% Inh Alisha 2.5 mL) 2.5 Milliliter Nebulized inhalation (aerosol) 4 times a day. Refills: 0. Last Dose: ___Next Dose: ___ levalbuterol (levalbuterol 0.63 mg/3 mL Inh Alisha) 3 Milliliter Inhalation 4 times a day. Refills: 0. Last Dose: ___Next Dose: ___ Medications to Continue with No Changes Other Medications atorvastatin (atorvastatin 80 mg Tab) TAKE 1 TABLET DAILY. Refills: 3. Last Dose: ___Next Dose: ___ carvedilol (carvedilol 12.5 mg Tab) 1 Tablets By Mouth 2 times a day. Last Dose: ___Next Dose: ___ cholecalciferol (Vitamin D3 10,000 intl units oral capsule) 1 Capsules By Mouth every day. Last Dose: ___Next Dose: ___ multivitamin (One-A-Day Men's Health Formula) 1 Tablets By Mouth every day. Last Dose: ___Next Dose: ___ omeprazole (omeprazole 40 mg Cap-DR) 1 Capsule (more content not included)... Normal [facility] Interdisciplinary Note - Clemente e Manageron 05-14-2024 Interdisciplinary Note - Investment Sales Assistant Interdisciplinary Note - Investment Sales Assistant Patient is awake and alert in bed, previously rounded with Corie MARRIAGE AND FAMILY SOCIAL WORKER. Pt has been up walking in halls with therapy, no longer has SNF recommendation. Possible DC home today with Kenan NUNES, RN, PT, and OT. Pt will need a walker at [place], ok to use [facility], Referral to resource center. Medicare rights reviewed. . PCP verified and insurance information reviewed and DME discussed. Contact information provided and white board updated. [facility] be delivered to pt room prior to DC today FWW approved by insurance and will be delivered to pt room soon. Nebulizer not approved due to no qualifying diagnosis. CRM discussed self pay amount $80 with and she does not have a nebulizer at home and does not have $80 to pay for this. [employer] updated, and will review chat and awaiting pulm to see. CRM following Normal [facility] Comment on above: Result Comment: Elec tronically Signed By: Javed METCALF, Vee\.br\Date and Time Signed: 05/14/24 14:31 EST Main OR Intraoperative Recor don 05-14-2024 Main OR Intraoperative Record Main OR Intraoperative Record IntraOp Document Type FT Summary Primary Physician: Pooja Stephens MD Finalized Date/Time: 05/14/24 12:38:17 Pt. Name: KATIEROBERTABENNIE MONTOYA D.O.B./Sex: 1945 Male Med Rec #: [id number] Physician: Pan Gar DO Financial #: [id number] Pt. Type: I Room/Bed: [place] [address] Admit/Disch: 05/06/24 10:29:54 - Institution: Case Times FT Entry 1 Patient Times In Room 05/11/24 13:13:00 Out Room 05/11/24 13:29:00 Procedure Times Start 05/11/24 13:16:00 Stop 05/11/24 13:25:00 Anesthesia Times Last Modified By: Nirav METCALF, Cheryl Rodriguez 05/14/24 12:37:14 General Comments: 05/14/24 Chart opened to review and send charges LRoth CSFA Case Attendance FT Entry 1 Entry 2 Entry 3 Case Attendee Pooja Stephens MD, RN, Cheryl Calvo RN, Kati F Role Performed Surgeon - Primary Supervisor Spring Up - Primary Staff - Other Time In 05/11/24 13:13:00 05/11/24 13:13:00 05/11/24 13:13:00 Time Out 05/11/24 13:29:00 05/11/24 13:29:00 05/11/24 13:29:00 Procedure BRONCHOSCOPY(.) BRONCHOSCOPY(.) BRONCHOSCOPY(.) Comments Concsious sedation. Last Modified By: Nirav RN, Cheryl Gastelum RN, Cheryl Gastelum RN, Cheryl Rodriguez 05/11/24 13:29:15 05/11/24 13:29:15 05/11/24 13:29:15 Entry 4 Entry 5 Case Attendee Lisa Rachel RN, Ubaldo Azevedo Role Performed Scrub - Primary Staff - Other Time In 05/11/24 13:13:00 05/11/24 13:13:00 Time Out 05/11/24 13:29:00 05/11/24 13:29:00 Procedure BRONCHOSCOPY(.) BRONCHOSCOPY(.) Comments Help in room. Last Modified By: Nirav RN, Cheryl Gastelum RN, Cheryl Rodriguez 05/11/24 13:29:15 05/11/24 13:29:15 Perioperative Protocols FT Pre-Care Text: Implements protective measures prior to operative or invasive procedure, confirms identity before the operative or invasive procedure, verifies operative procedure, surgical site, and laterality Entry 1 Procedure(s) BRONCHOSCOPY(.) Patient Identity Birthday, ID Band Verified (select at Check, Patient least 2): Participation Consents / H and P Anesthesia Consent, Operative Site N/A Verified H&P, Surgery/Procedure Marking Verified Consent Surgical Site No Laterality Verified n/a Verified Procedure Verified Yes Correct Patient Yes Position Verified Availability Equipment, Medication Prep Dry n/a Verified (If Applicable) PreOp Antibiotic No Time Out Angelo STEWART, Pooja Belcher, Given Participants Nirav METCALF, Umesh Ken RN, Wilson Becerril Micala E, Souter RN, Ubaldo Azevedo Time Out Complete 05/11/24 13:14:00 Outcomes Met? Yes Last Modified By: Cheryl Gastelum RN 05/11/24 13:15:53 Post-Care Text: The patient is free from signs and symptoms of injury caused by extraneous objects Allergy Information FT Pre-Care Text: Verifies allergies Entry 1 Allergies Reviewed? Yes Allergies Reviewed Self/Patient With Outcomes Met? Yes Last Modified By: Cheryl Gastelum RN 05/11/24 12:55:27 Post-Care Text: The patient received appropriate medication(s) safely administered during the perioperative period Surgical Procedures FT Entry 1 Procedure Description Procedure BRONCHOSCOPY Modifiers . Surgeon Description Bronchoscopy with general lung washing and left lower lobe BAL. Primary Procedure Yes Primary Surgeon Angelo STEWART, Pooja X Start 05/11/24 13:16:00 Stop 05/11/24 13:25:00 Anesthesia Type IV Conscious Sedation Surgical Service Pulmonology Wound Class 2 - Clean-Contaminated Last Modified By: Cheryl Gastelum RN 05/11/24 13:30:23 General Case Data FT Pre-Care Text: Classifies surgical wound, implements aseptic technique, initiates traffic control Entry 1 Case Information OR ENDO 1 FT Case Level Level 2 Wound Class 2 - Clean-Contaminated Specialty Pulmonology Preop Diagnosis Pulmonary infiltrate Postop Same As Preop Yes Postop Diagnosis Pulmonary infiltrate Outcomes Met? Yes Last Modified By: Cheryl Gastelum RN 05/11/24 13:27:16 Post-Care Text: The patient is free from signs and symptoms of infection Skin Assessment (Pre Procedure) FT Pre-Care Text: Implements protective measures to prevent skin/ tissue injury due to thermal or mechanical sources Evaluates for signs and symptoms of physical injury to skin and tissue Entry 1 Skin Integrity Intact, [place], Warm, & Skin Abnormality No Dry Outcomes Met? Yes Last Modified By: Cheryl Gastelum RN 05/11/24 12:56:01 Post-Care Text: The patient is free from signs and symptoms of injury caused by extraneous objects Patient Positioning FT Pre-Care Text: Identifies physical alterations that require additional precautions for procedure-specific positioning, verifies presence of prosthetics or corrective devices, positions the patient, evaluates the patient for signs and symptoms of injury as a result of positioning Entry 1 Procedure BRONCHOSCOPY(.) Body Position Lateral, right side up Feet Uncrossed? Yes Left Arm Position Resting at Side Right Arm Position Restin (more content not included)... Normal [facility] PTon 05-14-2024 INR Coag (PPP) [Relative time] 1.95 {INR} Invalid Interpretation Code [facility] Comment on above: Result Comment: INR results are specifically intended to assess patients stabilized on long-term Anticoagulation therapy suggested INR???s ???Less Intensive Anticoagulation??? 2.0 ??? 3.0 Conventional Range 3.0 ??? 4.5 Performed By: #### 2 [id number] #### [facility] [address] [place] [address] PT Coag (PPP) [Time] 22.0 second(s) High 9.4-12.5 [facility] Comment on above: Result Comment: 15 d ays - 4 weeks 1 - 5 months 6 -11 months 1- 5 years 6-10 years 11 -17 years Mean: 11.2 (9.5-12.6) Mean: 11.0 (9.7-12.8) Mean: 11.0 (9.8-13.0) Mean: 11.3 (9.9-13.4) Mean: 11.7 (10.0-14.6) Mean: 11.8 (10.0 - 14.1) Pediatric Reference ranges were obtained from a study by Marc Stewart et al. prepared from 1437 samples obtained at 7 different centers using the same coagulation reagent and instrumentation as [facility]. Currently there are no coagulation studies available worldwide for children to 14 days, and no normal ranges. Performed By: #### 2 [id number] #### [facility] [address] [place] [address] COAGULATIONOrdered By: Shelbi Lemons on 05-13-2024 INR Coag (PPP) [Relative time] 1.49 {INR} Invalid Interpretation Code [facility] Auto Coag Comment on above: Interpretive Data: I NR results are specifically intended to assess patients stabilized on long-term Anticoagulation therapy suggested INR s Less Intensive Anticoagulation 2.0 3.0 Conventional Range 3.0 4.5 PT Coag (PPP) [Time] 16.8 s High 9.4 - 1 2.5 second(s) [facility] Auto Coag Comment on above: Interpretive Data: 1 5 days - 4 weeks 1 - 5 months 6 -11 months 1 5 years 6 10 years 11 -17 years Mean: 11.2 (9.5 12.6) Mean: 11.0 (9.7 12.8) Mean: 11.0 (9.8 13.0) Mean: 11.3 (9.9 13.4) Mean: 11.7 (10.0 14.6) Mean: 11.8 (10.0 - 14.1) Pediatric Reference ranges were obtained from a study by mike Rowell. prepared from 1437 samples obtained at 7 different centers using the same coagulation reagent and instrumentation as [facility]. Currently there are no coagulation studies available worldwide for children to 14 days, and no normal ranges. Extra Piyush 05-13-2024 WB Tube Collected Yes Invalid Interpretation Code [facility] Comment on above: Performed By: #### 1 [id number] #### [facility] [address] [place] [address] PTon 05-13-2024 INR Coag (PPP) [Relative time] 1.49 {INR} Invalid Interpretation Code [facility] Comment on above: Result Comment: INR results are specifically intended to assess patients stabilized on long-term Anticoagulation therapy suggested INR???s ???Less Intensive Anticoagulation??? 2.0 ??? 3.0 Conventional Range 3.0 ??? 4.5 Performed By: #### 2 [id number] #### [facility] [address] [place] [address] PT Coag (PPP) [Time] 16.8 second(s) High 9.4-12.5 [facility] Comment on above: Result Comment: 15 d ays - 4 weeks 1 - 5 months 6 -11 months 1 ??? 5 years 6 ??? 10 years 11 -17 years Mean: 11.2 (9.5 ??? 12.6) Mean: 11.0 (9.7 ??? 12.8) Mean: 11.0 (9.8 ??? 13.0) Mean: 11.3 (9.9 ??? 13.4) Mean: 11.7 (10.0 ??? 14.6) Mean: 11.8 (10.0 - 14.1) Pediatric Reference ranges were obtained from a study by orquidea Rowell prepared from 1437 samples obtained at 7 different centers using the same coagulation reagent and instrumentation as [facility]. Currently there are no coagulation studies available worldwide for children to 14 days, and no normal ranges. Performed By: #### 2 [id number] #### [place] [facility] [address] [place] [address] CHEMISTRYOrdered By: SYSTEM SYSTEM on 05-12-2024 Anion gap [Moles/Vol] 10 mmol/L Normal 6 - 16 mEq/L R emisol Chem Calcium [Mass/Vol] 8.0 mg/dL Low 8.9 - 11. 1 mg/dL Remisol Chem Chloride [Moles/Vol] 111 mmol/L Normal 101 - 1 11 mmol/L Remisol Chem CO2 [Moles/Vol] 27 mmol/L Normal 21 - 31 mmol/L Remis ol Chem Creatinine [Mass/Vol] 1.0 mg/dL Normal 0.5 - 1.3 mg/d L Remisol Chem eGFR 77 mL/min/1.73 m2 Normal >=59mL/min /1.73 m2 Remisol Chem Glucose [Mass/Vol] 94 mg/dL Normal 55 - 199 mg/dL Re misol Chem Magnesium [Mass/Vol] 2.0 mg/dL Normal 1.3 - 2.4 mg/dL Remisol Chem Potassium [Moles/Vol] 3.8 mmol/L Normal 3.5 - 5.3 mmol/L Remisol Chem Sodium [Moles/Vol] 144 mmol/L Normal 135 - 145 mmol/L Remisol Chem Total CK 133 [iU]/d Normal 14 - 261 Int._Unit/L Remisol Chem Urea nitrogen [Mass/Vol] 15 mg/dL Normal 5 - 21 mg/dL Remisol Chem Urea nitrogen/Creatinine [Mass ratio] 15 mg/mg Normal 10 - 20 Remisol Chem COAGULATIONOrdered By: Shelbi Lemons on 05-12-2024 INR Coag (PPP) [Relative time] 1.11 {INR} Invalid Interpretation Code [facility] Auto Coag Comment on above: Interpretive Data: I NR results are specifically intended to assess patients stabilized on long-term Anticoagulation therapy suggested INR s Less Intensive Anticoagulation 2.0 3.0 Conventional Range 3.0 4.5 PT Coag (PPP) [Time] 12.5 s Normal 9.4 - 1 2.5 second(s) [facility] Auto Coag Comment on above: Interpretive Data: 1 5 days - 4 weeks 1 - 5 months 6 -11 months 1-5 years 6-10 years 11 -17 years Mean: 11.2 (9.5-12.6) Mean: 11.0 (9.7-12.8) Mean: 11.0 (9.8-13.0) Mean: 11.3 (9.9-13.4) Mean: 11.7 (10.0-14.6) Mean: 11.8 (10.0 - 14.1) Pediatric Reference ranges were obtained from a study by Marc Stewart et al. prepared from 1437 samples obtained at 7 different centers using the same coagulation reagent and instrumentation as [facility]. Currently there are no coagulation studies available worldwide for children to 14 days, and no normal ranges. HEMATOLOGYOrdered By: SYSTEM SYSTEM on 05-12-2024 Hematocrit (Bld) [Volume fraction] 28.1 % Low 37.7 - 49.0 % Remisol Heme Hemoglobin (Bld) [Mass/Vol] 9.5 g/dL Low 13.5 - 17.5 gm/dL Remisol Heme CHEMISTRYOrdered By: SYSTEM SYSTEM on 05-11-2024 Anion gap [Moles/Vol] 8 mmol/L Normal 6 - 16 mEq/L R emisol Chem Calcium [Mass/Vol] 8.0 mg/dL Low 8.9 - 11. 1 mg/dL Remisol Chem Chloride [Moles/Vol] 110 mmol/L Normal 101 - 1 11 mmol/L Remisol Chem CO2 [Moles/Vol] 27 mmol/L Normal 21 - 31 mmol/L Remis ol Chem Creatinine [Mass/Vol] 1.0 mg/dL Normal 0.5 - 1.3 mg/d L Remisol Chem eGFR 77 mL/min/1.73 m2 Normal >=59mL/min /1.73 m2 Remisol Chem Glucose [Mass/Vol] 77 mg/dL Normal 55 - 199 mg/dL Re misol Chem Magnesium [Mass/Vol] 1.6 mg/dL Normal 1.3 - 2.4 mg/dL Remisol Chem Potassium [Moles/Vol] 3.0 mmol/L Low 3.5 - 5.3 mmol/L Remisol Chem Sodium [Moles/Vol] 142 mmol/L Normal 135 - 145 mmol/L Remisol Chem Urea nitrogen [Mass/Vol] 14 mg/dL Normal 5 - 21 mg/dL Remisol Chem Urea nitrogen/Creatinine [Mass ratio] 14 mg/mg Normal 10 - 20 Remisol Chem HEMATOLOGYOrdered By: Fabby Rivera on 05-11-2024 Clarity (Unsp spec) Clear (05/11/24 1:32 PM) Normal [facility] HemeManSS Color (Body fld) Colorless (05/11/24 1:32 PM) Normal [facility] HemeManSS Eosinophils Manual cnt (Body fld) [#/Vol] 1 % Invalid Interpretation Code [facility] HemeManSS Lymphocytes Manual cnt (Body fld) [#/Vol] 16 % Invalid Interpretation Code [facility] HemeManSS Monocyte+Macrophage/10 0 WBC Manual cnt (Body fld) 74 % Invalid Interpretation Code [facility] HemeManSS RBC Auto (Body fld) [#/Vol] 265 cells/mcL High <=0cells/mcL [facility] HemeManSS Segmented neutrophils Manual cnt (Body fld) [#/Vol] 9 % Invalid Interpretation Code [facility] HemeManSS Specimen type Nom (Spec) Bronchial fluid (05/11/24 1:32 PM) Normal [facility] HemeManSS TNC BF 103 cells/mcL Invalid Interpretation Code [facility] HemeManSS Comment on above: Interpretive Data: T NC: Total Nucleated Cells include WBC's and other cells present, (eg, mesothelial cells and other lining cells) HEMATOLOGYOrdered By: SYSTEM SYSTEM on 05-11-2024 Hematocrit (Bld) [Volume fraction] 27.0 % Low 37.7 - 49.0 % Remisol Heme Hemoglobin (Bld) [Mass/Vol] 9.1 g/dL Low 13.5 - 17.5 gm/dL Remisol Heme Lab Miscellaneous-LCon 05-11 Test Code [id number] Invalid Interpretation Code [facility] Comment on above: Result Comment: Nahomy ection date/time has been modified to: 13:31:00. Previous collection date/time: 13:32:00. Performed By: #### 1 [id number] #### [facility] [address] [place] [address] Test Name PJP PCR Invalid Interpretation Code [facility] Comment on above: Result Comment: Nahomy ection date/time has been modified to: 13:31:00. Previous collection date/time: 13:32:00. Performed By: #### 1 [id number] #### [facility] [address] [place] [address] No Panel InformationOrdered By: Rylie Paulino on 05-11-2024 Bronchial Wash Culture No growth at 2 days. [facility] GS Occasional White Blo od Cells Rare epithelial cells No organisms seen. [facility] TARIK Occasional Yeast [facility] Bronchial Wash Culture Scant growth of N ormal upper respiratory wandy isolated [facility] GS Rare epithelial cell s No WBC's seen. No organisms seen. [facility] TARIK No fungal elements seen. [facility] Reference Laboratory Testing Ordered By: Cheryl Gastelum on 05-11-2024 Test Code 863105 [id number] Invalid Interpretation Code [facility] SendOutsSS Comment on above: Result Comment: Nahomy ection date/time has been modified to: 13:31:00. Previous collection date/time: 13:32:00. Test Name PJP PCR Invalid Interpretation Code [facility] [employer]OutsSS Comment on above: Result Comment: Nahomy ection date/time has been modified to: 13:31:00. Previous collection date/time: 13:32:00. BMPon 05-10-2024 Anion gap [Moles/Vol] 10 mmol/L Normal 6-16 [facility] Comment on above: Performed By: #### 2 [id number] #### [facility] [address] [place] [address] Calcium [Mass/Vol] 8.2 mg/dL Low 8.9-11.1 [facility] Comment on above: Performed By: #### 2 [id number] #### [facility] [address] [place] [address] Chloride [Moles/Vol] 112 mmol/L High 101-111 [facility] Comment on above: Performed By: #### 2 [id number] #### [facility] [address] [place] [address] CO2 [Moles/Vol] 26 mmol/L Normal 21-31 [facility] Comment on above: Performed By: #### 2 [id number] #### [facility] [address] [place] [address] Creatinine [Mass/Vol] 1.1 mg/dL Normal 0.5-1.3 [facility] Comment on above: Performed By: #### 2 [id number] #### [facility] [address] [place] [address] Glucose [Mass/Vol] 83 mg/dL Normal 55-199 [facility] Comment on above: Performed By: #### 2 [id number] #### [facility] [address] [place] [address] Potassium [Moles/Vol] 3.7 mmol/L Normal 3.5-5.3 [facility] Comment on above: Performed By: #### 2 [id number] #### [facility] [address] [place] [address] Sodium [Moles/Vol] 144 mmol/L Normal 135-145 [facility] Comment on above: Performed By: #### 2 [id number] #### [facility] [address] [place] [address] Urea nitrogen [Mass/Vol] 19 mg/dL Normal 5-21 [facility] Comment on above: Performed By: #### 2 [id number] #### [facility] [address] [place] [address] Urea nitrogen/Creatinine [Mass ratio] 17 No Units Normal 10-20 [facility] Comment on above: Performed By: #### 2 [id number] #### [facility] [address] [place] [address] C. diff by PCRon 05-10-2024 Clostridium difficile by PCR Negative Normal Negative [facility] Comment on above: Order Comment: Order added by Discern Expert. Result Comment: This test result should be correlated with clinical presentations and medical history by a healthcare provider to determine its clinical significance. Performed By: #### 4 [id number] #### [facility] [address] [place] [address] [place] [address] CBC w/ Auto Diffon 5 Basophils/100 WBC (Bld) 0.1 % Normal 0.0-2.0 [facility] Comment on above: Performed By: #### 2 [id number] #### [facility] [address] [place] [address] Basophils/Leukocytes Auto (Bld) [Pure # fraction] 0.0 E9/L Normal 0.0-0.2 [facility] Comment on above: Performed By: #### 2 [id number] #### [facility] [address] [place] [address] Eosinophils (Bld) [#/Vol] 0.0 E9/L Normal 0.0-0.5 [facility] Comment on above: Performed By: #### 2 [id number] #### [facility] [address] [place] [address] Eosinophils/100 WBC (Bld) 0.2 % Normal 0.0-8.0 [facility] Comment on above: Performed By: #### 2 [id number] #### [facility] [address] [place] [address] Erythrocyte distribution width (RBC) [Ratio] 16.0 % High 10.9-14.2 [facility] Comment on above: Performed By: #### 2 [id number] #### [facility] [address] [place] [address] Hematocrit (Bld) [Volume fraction] 27.9 % Low 37.7-49.0 [facility] Comment on above: Performed By: #### 2 [id number] #### [facility] [address] [place] [address] Hemoglobin (Bld) [Mass/Vol] 9.4 g/dL Low 13.5-17.5 [facility] Comment on above: Performed By: #### 2 [id number] #### [facility] [address] [place] [address] Lymphocytes (Bld) [#/Vol] 1.1 E9/L Normal 1.0-4.0 [facility] Comment on above: Performed By: #### 2 [id number] #### [facility] [address] [place] [address] Lymphocytes/100 WBC (Bld) 19.7 % Normal 14.0-50.0 [facility] Comment on above: Performed By: #### 2 [id number] #### [facility] [address] [place] [address] MCH (RBC) [Entitic mass] 31.2 pg Normal 27.0-34.0 [facility] Comment on above: Performed By: #### 2 [id number] #### [facility] [address] [place] [address] MCHC (RBC) [Mass/Vol] 33.7 g/dL Normal 31.4-36.0 [facility] Comment on above: Performed By: #### 2 [id number] #### [facility] [address] [place] [address] MCV (RBC) [Entitic vol] 92.4 fL Normal 80.0-100.0 [facility] Comment on above: Performed By: #### 2 [id number] #### [facility] [address] [place] [address] Monocytes (Bld) [#/Vol] 0.3 E9/L Normal 0.2-1.0 [facility] Comment on above: Performed By: #### 2 [id number] #### [facility] [address] [place] [address] Neutrophils (Bld) [#/Vol] 4.0 E9/L Normal 2.0-7.5 [facility] Comment on above: Performed By: #### 2 [id number] #### [facility] [address] [place] [address] Neutrophils/100 WBC (Bld) 73.5 % Normal 36.0-75.0 [facility] Comment on above: Performed By: #### 2 [id number] #### [facility] [address] [place] [address] Platelet mean volume (Bld) [Entitic vol] 7.8 fL Normal 6.4-10.8 [facility] Comment on above: Performed By: #### 2 [id number] #### [facility] [address] [place] [address] Platelets (Bld) [#/Vol] 295.0 E9/L Normal 150.0-500.0 [facility] Comment on above: Performed By: #### 2 [id number] #### [facility] [address] [place] [address] RBC (Bld) [#/Vol] 3.0 E12/L Low 4.3-5.9 [facility] Comment on above: Performed By: #### 2 [id number] #### [facility] [address] [place] [address] WBC corrected for nucl RBC Auto (Bld) [#/Vol] 5.4 E9/L Normal 4.0-11.0 [facility] Comment on above: Performed By: #### 2 [id number] #### [facility] [address] [place] [address] CDiff PCRon 05-10-2024 C. difficile toxin A+B Ql (Stl) No, PCR to follow Normal [facility] Comment on above: Performed By: #### 3 [id number] #### [facility] [address] [place] [address] CHEMISTRYOrdered By: SYSTEM SYSTEM on 05-10-2024 Anion gap [Moles/Vol] 10 mmol/L Normal 6 - 16 mEq/L R emisol Chem Calcium [Mass/Vol] 8.2 mg/dL Low 8.9 - 11. 1 mg/dL Remisol Chem Chloride [Moles/Vol] 112 mmol/L High 101 - 1 11 mmol/L Remisol Chem CO2 [Moles/Vol] 26 mmol/L Normal 21 - 31 mmol/L Remis ol Chem Creatinine [Mass/Vol] 1.1 mg/dL Normal 0.5 - 1.3 mg/d L Remisol Chem eGFR 69 mL/min/1.73 m2 Normal >=59mL/min /1.73 m2 Remisol Chem Glucose [Mass/Vol] 83 mg/dL Normal 55 - 199 mg/dL Re misol Chem Potassium [Moles/Vol] 3.7 mmol/L Normal 3.5 - 5.3 mmol/L Remisol Chem Sodium [Moles/Vol] 144 mmol/L Normal 135 - 145 mmol/L Remisol Chem Urea nitrogen [Mass/Vol] 19 mg/dL Normal 5 - 21 mg/dL Remisol Chem Urea nitrogen/Creatinine [Mass ratio] 17 mg/mg Normal 10 - 20 Remisol Chem HEMATOLOGYOrdered By: SYSTEM SYSTEM on 05-10-2024 Basophils/100 WBC (Bld) 0.1 % Normal 0.0 - 2.0 % Remisol Heme Basophils/Leukocytes Auto (Bld) [Pure # fraction] 0.0 E9/L Normal 0.0 - 0.2 E9/L Remisol Heme Eosinophils (Bld) [#/Vol] 0.0 E9/L Normal 0.0 - 0.5 E9/L Remisol Heme Eosinophils/100 WBC (Bld) 0.2 % Normal 0.0 - 8.0 % Remisol Heme Erythrocyte distribution width (RBC) [Ratio] 16.0 % High 10.9 - 14.2 % Remisol Heme Hematocrit (Bld) [Volume fraction] 27.9 % Low 37.7 - 49.0 % Remisol Heme Hemoglobin (Bld) [Mass/Vol] 9.4 g/dL Low 13.5 - 17.5 gm/dL Remisol Heme Lymphocytes (Bld) [#/Vol] 1.1 E9/L Normal 1.0 - 4.0 E9/L Remisol Heme Lymphocytes/100 WBC (Bld) 19.7 % Normal 14.0 - 50.0 % Remisol Heme MCH (RBC) [Entitic mass] 31.2 pg Normal 27.0 - 34.0 pg Remisol Heme MCHC (RBC) [Mass/Vol] 33.7 g/dL Normal 31.4 - 36.0 gm/dL Remisol Heme MCV (RBC) [Entitic vol] 92.4 fL Normal 80.0 - 100.0 fL Remisol Heme Monocytes (Bld) [#/Vol] 0.3 E9/L Normal 0.2 - 1.0 E9/L Remisol Heme Monocytes/100 WBC (Bld) 6.5 % Normal 4.0 - 14.0 % Remisol Heme Neutrophils (Bld) [#/Vol] 4.0 E9/L Normal 2.0 - 7.5 E9/L Remisol Heme Neutrophils/100 WBC (Bld) 73.5 % Normal 36.0 - 75.0 % Remisol Heme Platelet mean volume (Bld) [Entitic vol] 7.8 fL Normal 6.4 - 10.8 fL Remisol Heme Platelets (Bld) [#/Vol] 295.0 E9/L Normal 150.0 - 500.0 E9/L Remisol Heme RBC (Bld) [#/Vol] 3.0 E12/L Low 4.3 - 5.9 E12/L Re misol Heme WBC corrected for nucl RBC Auto (Bld) [#/Vol] 5.4 E9/L Normal 4.0 - 11.0 E9/L Remisol Heme Interdisciplinary Note - Clemente e Manageron 05-10-2024 Interdisciplinary Note - Investment Sales Assistant Interdisciplinary Note - Investment Sales Assistant Patient is asleep in bed no family present. Previously rounded with Elizabeth [employer] and pending pulm to see. Plan to move him out of ICU today. PT/OT= SNF. Per nursing pt doing much better today,w alking around room and to and from bathroom. States he does not want SNF placement but prefers to go home at [place]. Will continue to monitor progress. Contact information provided and white board updated, CRM following Normal [facility] Comment on above: Result Comment: Elec tronically Signed By: Javed METCALF, Vee\.dana\Date and Time Signed: 05/10/24 11:22 EST PTon 05-10-2024 INR Coag (PPP) [Relative time] 1.22 {INR} Invalid Interpretation Code [facility] Comment on above: Result Comment: INR results are specifically intended to assess patients stabilized on long-term Anticoagulation therapy suggested INR???s ???Less Intensive Anticoagulation??? 2.0 ??? 3.0 Conventional Range 3.0 ??? 4.5 Performed By: #### 2 [id number] #### [facility] [address] [place] [address] PT Coag (PPP) [Time] 13.7 second(s) High 9.4-12.5 [facility] Comment on above: Result Comment: 15 d ays - 4 weeks 1 - 5 months 6 -11 months 1- 5 years 6-10 years 11 -17 years Mean: 11.2 (9.5-12.6) Mean: 11.0 (9.7-12.8) Mean: 11.0 (9.8-13.0) Mean: 11.3 (9.9-13.4) Mean: 11.7 (10.0-14.6) Mean: 11.8 (10.0 - 14.1) Pediatric Reference ranges were obtained from a study by Marc Stewart et al. prepared from 1437 samples obtained at 7 different centers using the same coagulation reagent and instrumentation as [facility]. Currently there are no coagulation studies available worldwide for children to 14 days, and no normal ranges. Performed By: #### 2 [id number] #### [facility] [address] [place] [address] eGFRon 05-10-2024 eGFR 69 mL/min/1.73 m2 Normal >=59 [facility] Comment on above: Performed By: #### 1 [id number] #### [facility] [address] [place] [address] CBC w/ Auto Diffon 5 Basophils/100 WBC (Bld) 0.1 % Normal 0.0-2.0 [facility] Comment on above: Performed By: #### 2 [id number] #### [facility] [address] [place] [address] Basophils/Leukocytes Auto (Bld) [Pure # fraction] 0.0 E9/L Normal 0.0-0.2 [facility] Comment on above: Performed By: #### 2 [id number] #### [facility] [address] [place] [address] Eosinophils (Bld) [#/Vol] 0.0 E9/L Normal 0.0-0.5 [facility] Comment on above: Performed By: #### 2 [id number] #### [facility] [address] [place] [address] Eosinophils/100 WBC (Bld) 0.0 % Normal 0.0-8.0 [facility] Comment on above: Performed By: #### 2 [id number] #### [facility] [address] [place] [address] Erythrocyte distribution width (RBC) [Ratio] 15.7 % High 10.9-14.2 [facility] Comment on above: Performed By: #### 2 [id number] #### [facility] [address] [place] [address] Hematocrit (Bld) [Volume fraction] 26.1 % Low 37.7-49.0 [facility] Comment on above: Performed By: #### 2 [id number] #### [facility] [address] [place] [address] Hemoglobin (Bld) [Mass/Vol] 8.8 g/dL Low 13.5-17.5 [facility] Comment on above: Performed By: #### 2 [id number] #### [facility] [address] [place] [address] Lymphocytes (Bld) [#/Vol] 0.9 E9/L Low 1.0-4.0 [facility] Comment on above: Performed By: #### 2 [id number] #### [facility] [address] [place] [address] Lymphocytes/100 WBC (Bld) 13.0 % Low 14.0-50.0 [facility] Comment on above: Performed By: #### 2 [id number] #### [facility] [address] [place] [address] MCH (RBC) [Entitic mass] 30.8 pg Normal 27.0-34.0 [facility] Comment on above: Performed By: #### 2 [id number] #### [facility] [address] [place] [address] MCHC (RBC) [Mass/Vol] 33.7 g/dL Normal 31.4-36.0 [facility] Comment on above: Performed By: #### 2 [id number] #### [facility] [address] [place] [address] MCV (RBC) [Entitic vol] 91.5 fL Normal 80.0-100.0 [facility] Comment on above: Performed By: #### 2 [id number] #### [facility] [address] [place] [address] Monocytes (Bld) [#/Vol] 0.4 E9/L Normal 0.2-1.0 [facility] Comment on above: Performed By: #### 2 [id number] #### [facility] [address] [place] [address] Neutrophils (Bld) [#/Vol] 5.4 E9/L Normal 2.0-7.5 [facility] Comment on above: Performed By: #### 2 [id number] #### [facility] [address] [place] [address] Neutrophils/100 WBC (Bld) 81.4 % High 36.0-75.0 [facility] Comment on above: Performed By: #### 2 [id number] #### [facility] [address] [place] [address] Platelet mean volume (Bld) [Entitic vol] 8.0 fL Normal 6.4-10.8 [facility] Comment on above: Performed By: #### 2 [id number] #### [facility] [facility] [address] [place] [address] Platelets (Bld) [#/Vol] 266.0 E9/L Normal 150.0-500.0 [facility] Comment on above: Performed By: #### 2 [id number] #### [facility] [address] [place] [address] RBC (Bld) [#/Vol] 2.9 E12/L Low 4.3-5.9 [facility] Comment on above: Performed By: #### 2 [id number] #### [facility] [address] [place] [address] WBC corrected for nucl RBC Auto (Bld) [#/Vol] 6.6 E9/L Normal 4.0-11.0 [facility] Comment on above: Performed By: #### 2 [id number] #### [facility] [address] [place] [address] CHEMISTRYOrdered By: SYSTEM SYSTEM on 05-09-2024 Albumin [Mass/Vol] 2.4 g/dL Low 3.3 - 5.0 gm/dL R emisol Chem Albumin/Globulin [Mass ratio] 1.0 {ratio} Low 1.1 - 2.2 Remisol Chem ALP [Catalytic activity/Vol] 54 [iU]/d Normal 21 - 98 Int._Unit/L Remisol Chem ALT No additional P-5'-P [Catalytic activity/Vol] 30 [iU]/d Normal 6 - 46 Int._Unit/L Remisol Chem AST [Catalytic activity/Vol] 50 [iU]/d High 5 - 43 Int._Unit/L Remisol Chem Bilirubin [Mass/Vol] 0.3 mg/dL Normal 0.0 - 1.1 mg/dL Remisol Chem CRP [Mass/Vol] 3.8 mg/dL High <=1.9mg/dL Remisol Chem Globulin (S) [Mass/Vol] 2.4 g/dL Normal 1.4 - 4.0 gm/dL Remisol Chem Protein [Mass/Vol] 4.8 g/dL Low 6.0 - 7.8 gm/dL R emisol Chem CMPon 05-09-2024 Albumin [Mass/Vol] 2.4 g/dL Low 3.3-5.0 [facility] Comment on above: Performed By: #### 2 [id number] #### [facility] [address] [place] [address] Albumin/Globulin (S) [Mass conc ratio] 1.0 Low 1.1-2.2 [facility] Comment on above: Performed By: #### 2 [id number] #### [facility] [address] [place] [address] ALP [Catalytic activity/Vol] 54 Int._Unit/L Normal 21-98 [facility] Comment on above: Performed By: #### 2 [id number] #### [facility] [address] [place] [address] ALT No additional P-5'-P [Catalytic activity/Vol] 30 Int._Unit/L Normal 6-46 [facility] Comment on above: Performed By: #### 2 [id number] #### [facility] [address] [place] [address] Anion gap [Moles/Vol] 8 mmol/L Normal 6-16 [facility] Comment on above: Performed By: #### 2 [id number] #### [facility] [address] [place] [address] AST [Catalytic activity/Vol] 50 Int._Unit/L High 5-43 [facility] Comment on above: Performed By: #### 2 [id number] #### [facility] [address] [place] [address] Bilirubin [Mass/Vol] 0.3 mg/dL Normal 0.0-1.1 [facility] Comment on above: Performed By: #### 2 [id number] #### [facility] [address] [place] [address] Calcium [Mass/Vol] 8.2 mg/dL Low 8.9-11.1 [facility] Comment on above: Performed By: #### 2 [id number] #### [facility] [address] [place] [address] Chloride [Moles/Vol] 113 mmol/L High 101-111 [facility] Comment on above: Performed By: #### 2 [id number] #### [facility] [address] [place] [address] CO2 [Moles/Vol] 26 mmol/L Normal 21-31 [facility] Comment on above: Performed By: #### 2 [id number] #### [facility] [address] [place] [address] Creatinine [Mass/Vol] 1.1 mg/dL Normal 0.5-1.3 [facility] Comment on above: Performed By: #### 2 [id number] #### [facility] [address] [place] [address] Globulin (S) [Mass/Vol] 2.4 g/dL Normal 1.4-4.0 [facility] Comment on above: Performed By: #### 2 [id number] #### [facility] [address] [place] [address] Glucose [Mass/Vol] 96 mg/dL Normal 55-199 [facility] Comment on above: Performed By: #### 2 [id number] #### [facility] [address] [place] [address] Potassium [Moles/Vol] 3.2 mmol/L Low 3.5-5.3 [facility] Comment on above: Performed By: #### 2 [id number] #### [facility] [address] [place] [address] Protein [Mass/Vol] 4.8 g/dL Low 6.0-7.8 [facility] Comment on above: Performed By: #### 2 [id number] #### [facility] [address] [place] [address] Sodium [Moles/Vol] 144 mmol/L Normal 135-145 [facility] Comment on above: Performed By: #### 2 [id number] #### [facility] [address] [place] [address] Urea nitrogen [Mass/Vol] 26 mg/dL High 5-21 [facility] Comment on above: Performed By: #### 2 [id number] #### [facility] [address] [place] [address] Urea nitrogen/Creatinine [Mass ratio] 24 No Units High 10-20 [facility] Comment on above: Performed By: #### 2 [id number] #### [facility] [address] [place] [address] CRPon 05-09-2024 CRP [Mass/Vol] 3.8 mg/dL High <=1.9 [facility] Comment on above: Performed By: #### 2 [id number] #### [facility] [address] [place] [address] HEMATOLOGYOrdered By: SYSTEM SYSTEM on 05-09-2024 Basophils/100 WBC (Bld) 0.1 % Normal 0.0 - 2.0 % Remisol Heme Basophils/Leukocytes Auto (Bld) [Pure # fraction] 0.0 E9/L Normal 0.0 - 0.2 E9/L Remisol Heme Eosinophils (Bld) [#/Vol] 0.0 E9/L Normal 0.0 - 0.5 E9/L Remisol Heme Eosinophils/100 WBC (Bld) 0.0 % Normal 0.0 - 8.0 % Remisol Heme Erythrocyte distribution width (RBC) [Ratio] 15.7 % High 10.9 - 14.2 % Remisol Heme Lymphocytes (Bld) [#/Vol] 0.9 E9/L Low 1.0 - 4.0 E9/L Remisol Heme Lymphocytes/100 WBC (Bld) 13.0 % Low 14.0 - 50.0 % Remisol Heme MCH (RBC) [Entitic mass] 30.8 pg Normal 27.0 - 34.0 pg Remisol Heme MCHC (RBC) [Mass/Vol] 33.7 g/dL Normal 31.4 - 36.0 gm/dL Remisol Heme MCV (RBC) [Entitic vol] 91.5 fL Normal 80.0 - 100.0 fL Remisol Heme Monocytes (Bld) [#/Vol] 0.4 E9/L Normal 0.2 - 1.0 E9/L Remisol Heme Monocytes/100 WBC (Bld) 5.5 % Normal 4.0 - 14.0 % Remisol Heme Neutrophils (Bld) [#/Vol] 5.4 E9/L Normal 2.0 - 7.5 E9/L Remisol Heme Neutrophils/100 WBC (Bld) 81.4 % High 36.0 - 75.0 % Remisol Heme Platelet mean volume (Bld) [Entitic vol] 8.0 fL Normal 6.4 - 10.8 fL Remisol Heme Platelets (Bld) [#/Vol] 266.0 E9/L Normal 150.0 - 500.0 E9/L Remisol Heme RBC (Bld) [#/Vol] 2.9 E12/L Low 4.3 - 5.9 E12/L Re misol Heme WBC corrected for nucl RBC Auto (Bld) [#/Vol] 6.6 E9/L Normal 4.0 - 11.0 E9/L Remisol Heme Interdisciplinary Note - Clemente e Manageron 05-09-2024 Interdisciplinary Note - Investment Sales Assistant Interdisciplinary Note - Investment Sales Assistant Patient is alert and oriented in bed, previously rounded with Corie MARRIAGE AND FAMILY SOCIAL WORKER. Patient is from home with and daughters, and they will transport at [place]. Pt was supposed to have bronch today, but cancelled due to elevated inr. Bronch has been rescheduled for Tuesday. PT/OT= SNF, pt is feeling better, continues to wish to await progress prior to deciding on SNF, Medicare rights reviewed, no family present, declines need to call at this time. . PCP verified and insurance information reviewed and DME discussed. Contact information provided and white board updated. Normal [facility] Comment on above: Result Comment: Elec tronically Signed By: Javed METCALF, Vee\.dana\Date and Time Signed: 05/09/24 12:01 EST PTon 05-09-2024 INR Coag (PPP) [Relative time] 6.51 {INR} Abnormal [facility] Comment on above: Result Comment: Resu lts Called To Stefan Jordan By muna And Read Back For Confirmation On 05/09/2024 05:51:17 EST Results Verified By Repeat Analysis INR results are specifically intended to assess patients stabilized on long-term Anticoagulation therapy suggested INR???s ???Less Intensive Anticoagulation??? 2.0 ??? 3.0 Conventional Range 3.0 ??? 4.5 Performed By: #### 2 [id number] #### [facility] [address] [place] [address] PT Coag (PPP) [Time] 74.3 second(s) Abnormal 9.4-12.5 [facility] Comment on above: Result Comment: Resu lts Called To Stefan Jordan By muna And Read Back For Confirmation On 05/09/2024 05:51:17 EST Results Verified By Repeat Analysis 15 days - 4 weeks 1 - 5 months 6 -11 months 1-5 years 6-10 years 11 -17 years Mean: 11.2 (9.5-12.6) Mean: 11.0 (9.7-12.8) Mean: 11.0 (9.8-13.0) Mean: 11.3 (9.9-13.4) Mean: 11.7 (10.0-14.6) Mean: 11.8 (10.0 - 14.1) Pediatric Reference ranges were obtained from a study by rox Rowell al. prepared from 1437 samples obtained at 7 different centers using the same coagulation reagent and instrumentation as [facility]. Currently there are no coagulation studies available worldwide for children to 14 days, and no normal ranges. Performed By: #### 2 [id number] #### [facility] [address] [place] [address] U Legi Agon 05-09-2024 L. pneumophila 1 Ag IA Ql (U) Negative Invalid Interpretation Code Negative [facility] Comment on above: Result Comment: Pres umptive negative for L. pneumophila serogroup 1 antigen in urine, suggesting no recent or current infection. Legionnaires' disease cannot be ruled out since other serogroups and species may also cause disease. Performed at: [facility] [id number] MD Anthony Gallagher Performed By: #### 2 [id number] #### [facility] [address] [place] [address] eGFRon 05-09-2024 eGFR 69 mL/min/1.73 m2 Normal >=59 [facility] Comment on above: Performed By: #### 1 [id number] #### [facility] [address] [place] [address] BMPon 05-08-2024 Anion gap [Moles/Vol] 11 mmol/L Normal 6-16 [facility] Comment on above: Performed By: #### 2 [id number] #### [facility] [address] [place] [address] Calcium [Mass/Vol] 8.5 mg/dL Low 8.9-11.1 [facility] Comment on above: Performed By: #### 2 [id number] #### [facility] [address] [place] [address] Chloride [Moles/Vol] 108 mmol/L Normal 101-111 [facility] Comment on above: Performed By: #### 2 114136 #### [facility] [address] [place] [address] CO2 [Moles/Vol] 26 mmol/L Normal 21-31 [facility] Comment on above: Performed By: #### 2 104736 #### [facility] [address] [place] [address] Creatinine [Mass/Vol] 1.1 mg/dL Normal 0.5-1.3 [facility] Comment on above: Performed By: #### 2 [id number] #### [facility] [address] [place] [address] Glucose [Mass/Vol] 129 mg/dL Normal 55-199 [facility] Comment on above: Performed By: #### 2 534755 #### [facility] [address] [place] [address] Potassium [Moles/Vol] 4.1 mmol/L Normal 3.5-5.3 [facility] Comment on above: Performed By: #### 2 480553 #### [facility] [address] [place] [address] Sodium [Moles/Vol] 141 mmol/L Normal 135-145 [facility] Comment on above: Performed By: #### 2 [id number] #### [facility] [address] [place] [address] Urea nitrogen [Mass/Vol] 29 mg/dL High 5-21 [facility] Comment on above: Performed By: #### 2 320273 #### [facility] [address] [place] [address] Urea nitrogen/Creatinine [Mass ratio] 26 No Units High 10-20 [facility] Comment on above: Performed By: #### 2 956313 #### [facility] [address] [place] [address] CBC w/ Auto Diffon 01-21-202 5 Basophils/100 WBC (Bld) 0.1 % Normal 0.0-2.0 [facility] Comment on above: Performed By: #### 2 [id number] #### [facility] [address] [place] [address] Basophils/Leukocytes Auto (Bld) [Pure # fraction] 0.0 E9/L Normal 0.0-0.2 [facility] Comment on above: Performed By: #### 2 [id number] #### [facility] [address] [place] [address] Eosinophils (Bld) [#/Vol] 0.0 E9/L Normal 0.0-0.5 [facility] Comment on above: Performed By: #### 2 748946 #### [facility] [address] [place] [address] Eosinophils/100 WBC (Bld) 0.0 % Normal 0.0-8.0 [facility] Comment on above: Performed By: #### 2 419165 #### [facility] [address] [place] [address] Erythrocyte distribution width (RBC) [Ratio] 15.4 % High 10.9-14.2 [facility] Comment on above: Performed By: #### 2 219252 #### [facility] [address] [place] [address] Hematocrit (Bld) [Volume fraction] 30.8 % Low 37.7-49.0 [facility] Comment on above: Performed By: #### 2 [id number] #### [facility] [address] [place] [address] Hemoglobin (Bld) [Mass/Vol] 10.3 g/dL Low 13.5-17.5 [facility] Comment on above: Performed By: #### 2 154632 #### [facility] [address] [place] [address] Lymphocytes (Bld) [#/Vol] 1.1 E9/L Normal 1.0-4.0 [facility] Comment on above: Performed By: #### 2 935019 #### [facility] [address] [place] [address] Lymphocytes/100 WBC (Bld) 10.4 % Low 14.0-50.0 [facility] Comment on above: Performed By: #### 2 [id number] #### [facility] [address] [place] [address] MCH (RBC) [Entitic mass] 30.8 pg Normal 27.0-34.0 [facility] Comment on above: Performed By: #### 2 [id number] #### [facility] [address] [place] [address] MCHC (RBC) [Mass/Vol] 33.5 g/dL Normal 31.4-36.0 [facility] Comment on above: Performed By: #### 2 232278 #### [facility] [address] [place] [address] MCV (RBC) [Entitic vol] 91.9 fL Normal 80.0-100.0 [facility] Comment on above: Performed By: #### 2 [id number] #### [facility] [address] [place] [address] Monocytes (Bld) [#/Vol] 0.3 E9/L Normal 0.2-1.0 [facility] Comment on above: Performed By: #### 2 [id number] #### [facility] [address] [place] [address] Neutrophils (Bld) [#/Vol] 9.3 E9/L High 2.0-7.5 [facility] Comment on above: Performed By: #### 2 [id number] #### [facility] [address] [place] [address] Neutrophils/100 WBC (Bld) 86.6 % High 36.0-75.0 [facility] Comment on above: Performed By: #### 2 [id number] #### [facility] [address] [place] [address] Platelet 288.0 E9/L Normal 150.0-500.0 [facility] Comment on above: Performed By: #### 2 [id number] #### [facility] [address] [place] [address] Platelet mean volume (Bld) [Entitic vol] 8.6 fL Normal 6.4-10.8 [facility] Comment on above: Performed By: #### 2 515124 #### [facility] [address] [place] [address] RBC (Bld) [#/Vol] 3.4 E12/L Low 4.3-5.9 [facility] Comment on above: Performed By: #### 2 [id number] #### [facility] [address] [place] [address] WBC corrected for nucl RBC Auto (Bld) [#/Vol] 10.8 E9/L Normal 4.0-11.0 [facility] Comment on above: Performed By: #### 2 [id number] #### [facility] [address] [place] [id number] CHEMISTRYOrdered By: SYSTEM SYSTEM on 05-08-2024 Albumin [Mass/Vol] 2.8 g/dL Low 3.3 - 5.0 gm/dL R emisol Chem Albumin/Globulin [Mass ratio] 1.0 {ratio} Low 1.1 - 2.2 Remisol Chem ALP [Catalytic activity/Vol] 70 [iU]/d Normal 21 - 98 Int._Unit/L Remisol Chem ALT No additional P-5'-P [Catalytic activity/Vol] 38 [iU]/d Normal 6 - 46 Int._Unit/L Remisol Chem AST [Catalytic activity/Vol] 73 [iU]/d High 5 - 43 Int._Unit/L Remisol Chem Bilirubin [Mass/Vol] 0.4 mg/dL Normal 0.0 - 1.1 mg/dL Remisol Chem Bilirubin.direct [Mass/Vol] 0.1 mg/dL Normal 0.0 - 0.4 mg/dL Remisol Chem Bilirubin.indirect [Mass or moles/Vol] 0.3 mg/dL Normal 0.1 - 0.9 mg/dL Remisol Chem Globulin (S) [Mass/Vol] 2.9 g/dL Normal 1.4 - 4.0 gm/dL Remisol Chem Protein [Mass/Vol] 5.7 g/dL Low 6.0 - 7.8 gm/dL R emisol Chem Cortisolon 05-08-2024 Cortisol [Mass/Vol] 24.1 microgram/dL High 6.2-19.4 [facility] Comment on above: Result Comment: Abrahan baker Note: The reference interval and flagging for this test is for an AM collection. If this is a PM collection please use: Cortisol PM: 2.3-11.9 Performed at: [facility] [address] [place], [place] [id number] PhD Brandyn Madera Performed By: #### 2 [id number] #### [facility] [address] [place] [address] HEMATOLOGYOrdered By: Daniella Steward on 05-08-2024 Basophils/100 WBC (Bld) 0.1 % Normal 0.0 - 2.0 % Remisol Heme Basophils/Leukocytes Auto (Bld) [Pure # fraction] 0.0 E9/L Normal 0.0 - 0.2 E9/L Remisol Heme Eosinophils (Bld) [#/Vol] 0.0 E9/L Normal 0.0 - 0.5 E9/L Remisol Heme Eosinophils/100 WBC (Bld) 0.0 % Normal 0.0 - 8.0 % Remisol Heme Erythrocyte distribution width (RBC) [Ratio] 15.4 % High 10.9 - 14.2 % Remisol Heme Lymphocytes (Bld) [#/Vol] 1.1 E9/L Normal 1.0 - 4.0 E9/L Remisol Heme Lymphocytes/100 WBC (Bld) 10.4 % Low 14.0 - 50.0 % Remisol Heme MCH (RBC) [Entitic mass] 30.8 pg Normal 27.0 - 34.0 pg Remisol Heme MCHC (RBC) [Mass/Vol] 33.5 g/dL Normal 31.4 - 36.0 gm/dL Remisol Heme MCV (RBC) [Entitic vol] 91.9 fL Normal 80.0 - 100.0 fL Remisol Heme Monocytes (Bld) [#/Vol] 0.3 E9/L Normal 0.2 - 1.0 E9/L Remisol Heme Monocytes/100 WBC (Bld) 2.9 % Low 4.0 - 14.0 % Remisol Heme Neutrophils (Bld) [#/Vol] 9.3 E9/L High 2.0 - 7.5 E9/L Remisol Heme Neutrophils/100 WBC (Bld) 86.6 % High 36.0 - 75.0 % Remisol Heme Platelet 288.0 E9/L Normal 150.0 - 500.0 E9/L Remisol Heme Platelet mean volume (Bld) [Entitic vol] 8.6 fL Normal 6.4 - 10.8 fL Remisol Heme RBC (Bld) [#/Vol] 3.4 E12/L Low 4.3 - 5.9 E12/L Re misol Heme WBC corrected for nucl RBC Auto (Bld) [#/Vol] 10.8 E9/L Normal 4.0 - 11.0 E9/L Remisol Heme Hep Func Panelon 05-08-2024 Albumin [Mass/Vol] 2.8 g/dL Low 3.3-5.0 [facility] Comment on above: Performed By: #### 2 [id number] #### [facility] [address] [place] [address] Albumin/Globulin (S) [Mass conc ratio] 1.0 Low 1.1-2.2 [facility] Comment on above: Performed By: #### 2 [id number] #### [facility] [address] [place] [address] ALP [Catalytic activity/Vol] 70 Int._Unit/L Normal 21-98 [facility] Comment on above: Performed By: #### 2 [id number] #### [facility] [address] [place] [address] ALT No additional P-5'-P [Catalytic activity/Vol] 38 Int._Unit/L Normal 6-46 [facility] Comment on above: Performed By: #### 2 [id number] #### [facility] [address] [place] [address] AST [Catalytic activity/Vol] 73 Int._Unit/L High 5-43 [facility] Comment on above: Performed By: #### 2 [id number] #### [facility] [address] [place] [address] Bilirubin [Mass/Vol] 0.4 mg/dL Normal 0.0-1.1 [facility] Comment on above: Performed By: #### 2 461959 #### [facility] [address] [place] [address] Bilirubin.direct [Mass/Vol] 0.1 mg/dL Normal 0.0-0.4 [facility] Comment on above: Performed By: #### 2 738307 #### [facility] [address] [place] [address] Bilirubin.indirect [Mass or moles/Vol] 0.3 mg/dL Normal 0.1-0.9 [facility] Comment on above: Performed By: #### 2 [id number] #### [facility] [address] [place] [address] Globulin (S) [Mass/Vol] 2.9 g/dL Normal 1.4-4.0 [facility] Comment on above: Performed By: #### 2 [id number] #### [facility] [address] [place] [address] Protein [Mass/Vol] 5.7 g/dL Low 6.0-7.8 [facility] Comment on above: Performed By: #### 2 [id number] #### [facility] [address] [place] [address] Interdisciplinary Note - Clemente e Manageron 05-08-2024 Interdisciplinary Note - Investment Sales Assistant Interdisciplinary Note - Investment Sales Assistant Patient is awake and alert in bed, previously rounded with Corie MARRIAGE AND FAMILY SOCIAL WORKER. Patient is feeling better today. Discussed did better with therapy today and pt remains unsure if wants SNF at [place]. Updated CRM did discuss with and she was also considering. Aware will remain in hospital few more days. Pt prefers to monitor progress daily to see where he will be at [place], Discussed SNF and HH. Aware precert will not be required at [place] if SNF needed. Medicare rights reviewed. . PCP verified and insurance information reviewed and DME discussed. Contact information provided and white board updated. [facility] Comment on above: Result Comment: Elec tronically Signed By: Javed METCALF, Vee\.dana\Date and Time Signed: 05/08/24 11:08 EST MRSA Screenon 05-08-2024 MRSA DNA JACQUELINE+probe Ql (Unsp spec) Microbiology PROCEDURE: MRSA Screen [R1] SOURCE: Nasal BODY SITE: COLLECTED DATE/TIME: 05/06/2024 14:53 EST RECEIVED DATE/TIME: 05/06/2024 15:40 EST START DATE/TIME: 05/06/2024 15:40 EST FREE TEXT SOURCE: ORESTES DEGROOTYASMANI, Elizabeth [facility] CHIL[facility]'SYASMANI, Elizabeth FINAL REPORTS Final Report [] Verified Date/Time: 05/08/2024 09:44 EST MRSA Negative. Performing Locations R1: This test was performed at: [facility], [address] [place] [address], [id number] , , [facility] Comment on above: Performed By: #### 1 [id number] #### [facility] [address] [place] [address] PTon 05-08-2024 INR Coag (PPP) [Relative time] 5.94 {INR} Abnormal [facility] Comment on above: Result Comment: Resu lts Called To Swetha Calles By And Read Back For Confirmation On 05/08/2024 06:55:46 EST Results Verified By Repeat Analysis INR results are specifically intended to assess patients stabilized on long-term Anticoagulation therapy suggested INR???s ???Less Intensive Anticoagulation??? 2.0 ??? 3.0 Conventional Range 3.0 ??? 4.5 Performed By: #### 2 [id number] #### [facility] [address] [place] [address] PT Coag (PPP) [Time] 67.7 second(s) Abnormal 9.4-12.5 [facility] Comment on above: Result Comment: Resu lts Called To Swetha Calles By GREG And Read Back For Confirmation On 05/08/2024 06:55:46 EST Results Verified By Repeat Analysis 15 days - 4 weeks 1 - 5 months 6 -11 months 1 ??? 5 years 6 ??? 10 years 11 -17 years Mean: 11.2 (9.5 ??? 12.6) Mean: 11.0 (9.7 ??? 12.8) Mean: 11.0 (9.8 ??? 13.0) Mean: 11.3 (9.9 ??? 13.4) Mean: 11.7 (10.0 ??? 14.6) Mean: 11.8 (10.0 - 14.1) Pediatric Reference ranges were obtained from a study by Marc Stewart et al. prepared from 1437 samples obtained at 7 different centers using the same coagulation reagent and instrumentation as [facility]. Currently there are no coagulation studies available worldwide for children to 14 days, and no normal ranges. Performed By: #### 2 [id number] #### [facility] [address] [place] [address] eGFRon 05-08-2024 eGFR 69 mL/min/1.73 m2 Normal >=59 [facility] Comment on above: Performed By: #### 1 [id number] #### [facility] [address] [place] [address] BMPon 05-07-2024 Anion gap [Moles/Vol] 10 mmol/L Normal 6-16 [facility] Comment on above: Performed By: #### 2 [id number] #### [facility] [address] [place] [address] Calcium [Mass/Vol] 8.1 mg/dL Low 8.9-11.1 [facility] Comment on above: Performed By: #### 2 [id number] #### [facility] [address] [place] [address] Chloride [Moles/Vol] 106 mmol/L Normal 101-111 [facility] Comment on above: Performed By: #### 2 [id number] #### [facility] [address] [place] [address] CO2 [Moles/Vol] 26 mmol/L Normal 21-31 [facility] Comment on above: Performed By: #### 2 [id number] #### [facility] [address] [place] [address] Creatinine [Mass/Vol] 1.0 mg/dL Normal 0.5-1.3 [facility] Comment on above: Performed By: #### 2 [id number] #### [facility] [address] [place] [address] Glucose [Mass/Vol] 137 mg/dL Normal 55-199 [facility] Comment on above: Performed By: #### 2 [id number] #### [facility] [address] [place] [address] Potassium [Moles/Vol] 4.0 mmol/L Normal 3.5-5.3 [facility] Comment on above: Performed By: #### 2 [id number] #### [facility] [address] [place] [address] Sodium [Moles/Vol] 138 mmol/L Normal 135-145 [facility] Comment on above: Performed By: #### 2 [id number] #### [facility] [address] [place] [address] Urea nitrogen [Mass/Vol] 30 mg/dL High 5-21 [facility] Comment on above: Performed By: #### 2 [id number] #### [facility] [address] [place] [address] Urea nitrogen/Creatinine [Mass ratio] 30 No Units High 10-20 [facility] Comment on above: Performed By: #### 2 [id number] #### [facility] [address] [place] [address] CBC w/ Auto Diffon 5 Basophils/100 WBC (Bld) 0.1 % Normal 0.0-2.0 [facility] Comment on above: Performed By: #### 2 [id number] #### [facility] [address] [place] [address] Basophils/Leukocytes Auto (Bld) [Pure # fraction] 0.0 E9/L Normal 0.0-0.2 [facility] Comment on above: Performed By: #### 2 [id number] #### [facility] [address] [place] [address] Eosinophils (Bld) [#/Vol] 0.0 E9/L Normal 0.0-0.5 [facility] Comment on above: Performed By: #### 2 [id number] #### [facility] [address] [place] [address] Eosinophils/100 WBC (Bld) 0.0 % Normal 0.0-8.0 [facility] Comment on above: Performed By: #### 2 [id number] #### [facility] [address] [place] [address] Erythrocyte distribution width (RBC) [Ratio] 15.6 % High 10.9-14.2 [facility] Comment on above: Performed By: #### 2 [id number] #### [facility] [address] [place] [address] Hematocrit (Bld) [Volume fraction] 30.3 % Low 37.7-49.0 [facility] Comment on above: Performed By: #### 2 [id number] #### [facility] [address] [place] [address] Hemoglobin (Bld) [Mass/Vol] 10.2 g/dL Low 13.5-17.5 [facility] Comment on above: Performed By: #### 2 [id number] #### [facility] [address] [place] [address] Lymphocytes (Bld) [#/Vol] 0.9 E9/L Low 1.0-4.0 [facility] Comment on above: Performed By: #### 2 [id number] #### [facility] [address] [place] [address] Lymphocytes/100 WBC (Bld) 16.6 % Normal 14.0-50.0 [facility] Comment on above: Performed By: #### 2 [id number] #### [facility] [address] [place] [address] MCH (RBC) [Entitic mass] 31.3 pg Normal 27.0-34.0 [facility] Comment on above: Performed By: #### 2 [id number] #### [facility] [address] [place] [address] MCHC (RBC) [Mass/Vol] 33.8 g/dL Normal 31.4-36.0 [facility] Comment on above: Performed By: #### 2 [id number] #### [facility] [address] [place] [address] MCV (RBC) [Entitic vol] 92.6 fL Normal 80.0-100.0 [facility] Comment on above: Performed By: #### 2 [id number] #### [facility] [address] [place] [address] Monocytes (Bld) [#/Vol] 0.1 E9/L Low 0.2-1.0 [facility] Comment on above: Performed By: #### 2 [id number] #### [facility] [address] [place] [address] Neutrophils (Bld) [#/Vol] 4.4 E9/L Normal 2.0-7.5 [facility] Comment on above: Performed By: #### 2 [id number] #### [facility] [address] [place] [address] Neutrophils/100 WBC (Bld) 80.8 % High 36.0-75.0 [facility] Comment on above: Performed By: #### 2 [id number] #### [facility] [address] [place] [address] Platelet mean volume (Bld) [Entitic vol] 8.2 fL Normal 6.4-10.8 [facility] Comment on above: Performed By: #### 2 [id number] #### [facility] [address] [place] [address] Platelets (Bld) [#/Vol] 220.0 E9/L Normal 150.0-500.0 [facility] Comment on above: Performed By: #### 2 [id number] #### [facility] [address] [place] [address] RBC (Bld) [#/Vol] 3.3 E12/L Low 4.3-5.9 [facility] Comment on above: Performed By: #### 2 [id number] #### [facility] [address] [place] [address] WBC corrected for nucl RBC Auto (Bld) [#/Vol] 5.4 E9/L Normal 4.0-11.0 [facility] Comment on above: Performed By: #### 2 [id number] #### [facility] [address] [place] [address] CHEMISTRYOrdered By: SYSTEM SYSTEM on 05-07-2024 CRP [Mass/Vol] 12.3 mg/dL High <=1.9mg/dL Remisol Chem COAGULATIONOrdered By: Shelbi Lemons on 05-07-2024 aPTT Coag (PPP) [Time] 42.1 s High 25.1 - 36.5 second(s) [facility] Auto Coag Comment on above: Interpretive Data: Jaky butterfield 15 days - 4 weeks 1 - 5 months 6 - 11 months 1 - 5 years 6 - 10 years 11 - 17 years PTT Mean: 35.4 (27.6-45.6) Mean: 33.5 (24.8-40.7) Mean: 32.4 (25.1-40.7) Mean: 31.6 (24.0-39.2) Mean: 31.6 (26.9-38.7) Mean: 31.0 (24.6-38.4) Pediatric Reference ranges were obtained from a study by Marc Stewart et al. prepared from 1437 samples obtained at 7 different centers using the same coagulation reagent and instrumentation as [facility]. Currently there are no coagulation studies available worldwide for children to 14 days, and no normal ranges. Heparin therapeutic range (represented by Anti-Factor Xa activity of 0.2 - 0.4 U/mL) corresponds to PTT of 56.6 - 109.0 sec. CRPon 05-07-2024 CRP [Mass/Vol] 12.3 mg/dL High <=1.9 [facility] Comment on above: Performed By: #### 2 [id number] #### [facility] [address] [place] [address] Interdisciplinary Note - Clemente e Manageron 05-07-2024 Interdisciplinary Note - Investment Sales Assistant Interdisciplinary Note - Investment Sales Assistant Patient is awake and alert in bed, previously rounded with Elizabeth [employer]. Pt is getting cardiac echo at this time. No family present. PT states he lives at home with and stepdaughter and they will transport at [place]. pt is currently on 2L oxygen, does not have home oxygen . Discussed PT/OT= SNF, pt will consider, states ok to call and discuss with his Medicare rights reviewed. . PCP verified and insurance information reviewed and DME discussed. Contact information provided and white board updated. CRM attempted to contact pt Zuly [phone], no answer, VM left with contact information. CRM received return call from pt . Pt has never done SNF in past. She is unsure if wants SNF, discussed at length along with options and HH care. will think about overnight and discuss with family, and will update CRM tomorrow. CRM following Normal [facility] Comment on above: Result Comment: Elec tronically Signed By: Vee Burt RN\.br\Date and Time Signed: 05/07/24 15:30 EST Interdisciplinary Note - Investment Sales Assistant Interdisciplinary Note - Investment Sales Assistant Patient is awake and alert in bed, previously rounded with Elizabeth [employer]. Pt is getting cardiac echo at this time. No family present. PT states he lives at home with and stepdaughter and they will transport at [place]. pt is currently on 2L oxygen, does not have home oxygen . Discussed PT/OT= SNF, pt will consider, states ok to call and discuss with his Medicare rights reviewed. . PCP verified and insurance information reviewed and DME discussed. Contact information provided and white board updated. CRM attempted to contact pt Zuly [phone], no answer, VM left with contact information. Normal [facility] Comment on above: Result Comment: Elec tronically Signed By: Vee Burt RN\.br\Date and Time Signed: 05/07/24 12:00 EST Interdisciplinary Note - Chela n 05-07-2024 Interdisciplinary Note - OT Interdisciplinary Note - OT Ot [facility] six clicks score 16/24 = SNF. Patient requires increased assist w/ all adls and transfers when compared to baseline. Pt is limited by weakness and decreased activity tolerance. Inpatient OT services to follow daily to progress w/ functional skills as medical status improves. Normal [facility] MICRO OTHER TESTSOrdered By: Mihaela Randhawa on 05-07-2024 Occult blood panel (Stl) Positive *ABN* (05/07/24 12:49 PM) Invalid Interpretation Code Negative [facility] Man Sero PT & PTTon 05-07-2024 aPTT Coag (PPP) [Time] 42.1 second(s) High 25.1-36.5 [facility] Comment on above: Result Comment: Para meter 15 days - 4 weeks 1 - 5 months 6 - 11 months 1 - 5 years 6 - 10 years 11 - 17 years PTT Mean: 35.4 (27.6-45.6) Mean: 33.5 (24.8-40.7) Mean: 32.4 (25.1-40.7) Mean: 31.6 (24.0-39.2) Mean: 31.6 (26.9-38.7) Mean: 31.0 (24.6-38.4) Pediatric Reference ranges were obtained from a study by Marc Stewart et al. prepared from 1437 samples obtained at 7 different centers using the same coagulation reagent and instrumentation as [facility]. Currently there are no coagulation studies available worldwide for children to 14 days, and no normal ranges. Heparin therapeutic range (represented by Anti-Factor Xa activity of 0.2 - 0.4 U/mL) corresponds to PTT of 56.6 - 109.0 sec. Performed By: #### 1 [id number] #### [facility] [address] [employer] [place] [address] INR Coag (PPP) [Relative time] 3.26 {INR} Invalid Interpretation Code [facility] Comment on above: Result Comment: INR results are specifically intended to assess patients stabilized on long-term Anticoagulation therapy suggested INR???s ???Less Intensive Anticoagulation??? 2.0 ??? 3.0 Conventional Range 3.0 ??? 4.5 Performed By: #### 1 [id number] #### [facility] [address] [place] [address] PT Coag (PPP) [Time] 37.0 second(s) High 9.4-12.5 [facility] Comment on above: Result Comment: 15 d ays - 4 weeks 1 - 5 months 6 -11 months 1 ??? 5 years 6 ??? 10 years 11 -17 years Mean: 11.2 (9.5 ??? 12.6) Mean: 11.0 (9.7 ??? 12.8) Mean: 11.0 (9.8 ??? 13.0) Mean: 11.3 (9.9 ??? 13.4) Mean: 11.7 (10.0 ??? 14.6) Mean: 11.8 (10.0 - 14.1) Pediatric Reference ranges were obtained from a study by rox Rowell al. prepared from 1437 samples obtained at 7 different centers using the same coagulation reagent and instrumentation as [facility]. Currently there are no coagulation studies available worldwide for children to 14 days, and no normal ranges. Performed By: #### 1 [id number] #### [facility] [address] [place] [address] Reference Laboratory Testing Ordered By: [facility] Domain[employer] on 05-07-2024 L. pneumophila 1 Ag IA Ql (U) Negative Invalid Interpretation Code Negative [facility] [employer] Comment on above: Result Comment: Pres umptive negative for L. pneumophila serogroup 1 antigen in urine, suggesting no recent or current infection. Legionnaires' disease cannot be ruled out since other serogroups and species may also cause disease. Performed at: [facility] [id number] [place], [place] [id number] MD Anthony Gallagher Stl Oclt [place] 05-07-2024 Occult blood panel (Stl) Positive Abnormal Negative [facility] Comment on above: Performed By: #### 2 [id number] #### [facility] [address] [place] [address] UA with Cult Rflxon 05-07-19 25 Bilirubin Ql (U) Negative Normal Negative [facility] Comment on above: Performed By: #### 4 [id number] #### [facility] [address] [place] [address] Clarity (U) Turbid Abnormal Clear [facility] Comment on above: Performed By: #### 4 [id number] #### [facility] [address] [place] [address] Color (U) Yellow Normal Yellow [facility] Comment on above: Result Comment: Micr oscopic readings are only performed on those samples that meet specific criteria set forth by [facility]. Performed By: #### 4 [id number] #### [facility] [address] [place] [address] Crystals.amorphous Computer assisted Ql (U) Present Abnormal [facility] Comment on above: Performed By: #### 4 [id number] #### [facility] [address] [place] [address] Glucose Ql (U) Negative Normal Negative [facility] Comment on above: Performed By: #### 4 [id number] #### [facility] [address] [place] [address] Granular casts Computer assisted Ql (U) 11-20 Abnormal [facility] Comment on above: Performed By: #### 4 [id number] #### [facility] [address] [place] [address] Hemoglobin Auto test strip (U) [Mass/Vol] Negative Normal Negative [facility] Comment on above: Performed By: #### 4 [id number] #### [facility] [address] [place] [address] Ketones Auto test strip Ql (U) Negative Normal Negative [facility] Comment on above: Performed By: #### 4 [id number] #### [facility] [address] [place] [address] Leukocyte esterase Auto test strip Ql (U) Negative Normal Negative [facility] Comment on above: Performed By: #### 4 [id number] #### [facility] [address] [place] [address] Mucus Auto Ql (U) 2+ Abnormal Negative [facility] Comment on above: Performed By: #### 4 [id number] #### [facility] [address] [place] [address] Nitrite Auto test strip Ql (U) Negative Normal Negative [facility] Comment on above: Performed By: #### 4 [id number] #### [facility] [address] [place] [address] pH (U) 5.5 [pH] Invalid Interpretation Code 5.0-9.0 [facility] Comment on above: Performed By: #### 4 [id number] #### [facility] [address] [place] [address] Protein Ql (U) 1+ mg/dL Abnormal Negative [facility] Comment on above: Performed By: #### 4 [id number] #### [facility] [address] [place] [address] RBC Ql (U) 4-20 Abnormal 0-3 [facility] Comment on above: Performed By: #### 4 [id number] #### [facility] [address] [place] [address] Specific gravity (U) [Rel density] >1.050 Normal 1.005-1.030 [facility] Comment on above: Performed By: #### 4 [id number] #### [facility] [address] [place] [address] Urobilinogen (U) [Mass/Vol] Negative Normal Negative [facility] Comment on above: Performed By: #### 4 [id number] #### [facility] [address] [place] [address] WBC Auto (Urine sed) [#/Area] 0-5 Normal 0-5 [facility] Comment on above: Performed By: #### 4 [id number] #### [facility] [address] [place] [address] URINALYSISOrdered By: SYSTEM SYSTEM on 05-07-2024 Bilirubin Ql (U) Negative Normal Negativemg/dL [facility] UA Auto SS Clarity (U) Clear (05/07/24 10:54 AM) Normal Clear [facility] UA Auto SS Color (U) Yellow 1 (05/07/24 10:54 AM) Normal Yellow [facility] UA Auto SS Comment on above: Interpretive Data: M icroscopic readings are only performed on those samples that meet specific criteria set forth by [facility]. Glucose Ql (U) Negative Normal Negativemg/dL [facility] UA Auto SS Hemoglobin Auto test strip (U) [Mass/Vol] Negative Normal Negativemg/dL [facility] UA Auto SS Ketones Auto test strip Ql (U) Negative Normal Negativemg/dL [facility] UA Auto SS Leukocyte esterase Auto test strip Ql (U) Negative Normal NegativeLeu/uL [facility] UA Auto SS Mucus Auto Ql (U) Trace graded/LPF Normal Negati vegraded/ LPF [facility] UA Auto SS Nitrite Auto test strip Ql (U) Negative Normal Negativemg/dL [facility] UA Auto SS pH (U) 5.5 *NA* (05/07/24 10:54 AM) Invalid Interpretation Code 5.0 - 9.0 [facility] UA Auto SS Protein Ql (U) 1+ mg/dL Invalid Interpretation Code Negativemg/dL [facility] UA Auto SS Specific gravity (U) [Rel density] 1.039 *NA* (05/07/24 10:54 AM) Invalid Interpretation Code 1.005 - 1.030 [facility] UA Auto SS Urobilinogen (U) [Mass/Vol] Negative Normal Negativemg/dL [facility] UA Auto SS WBC Auto (Urine sed) [#/Area] 0-5 graded/HPF Normal 0-5graded/HPF [facility] UA Auto SS URINALYSISOrdered By: Marcela Carpenter on 05-07-2024 UA Spec Desc Gill (05/07/24 10:54 AM) Normal [facility] UA Auto SS URINALYSISOrdered By: Justo Santillan on 05-07-2024 Bilirubin Ql (U) Negative Normal Negativemg/dL [facility] UA Auto SS Clarity (U) Turbid *ABN* (05/07/24 3:12 AM) Invalid Interpretation Code Clear [facility] UA Auto SS Color (U) Yellow 2 (05/07/24 3:12 AM) Normal Yellow [facility] UA Auto SS Comment on above: Interpretive Data: M icroscopic readings are only performed on those samples that meet specific criteria set forth by [facility]. Crystals.amorphous Computer assisted Ql (U) Present graded/HPF Invalid Interpretation Code [facility] UA Auto SS Glucose Ql (U) Negative Normal Negativemg/dL [facility] UA Auto SS Granular casts Computer assisted Ql (U) 11-20 graded/LPF Invalid Interpretation Code [facility] UA Auto SS Hemoglobin Auto test strip (U) [Mass/Vol] Negative (05/07/24 3:12 AM) Normal Negative [facility] UA Auto SS Ketones Auto test strip Ql (U) Negative Normal Negativemg/dL [facility] UA Auto SS Leukocyte esterase Auto test strip Ql (U) Negative (05/07/24 3:12 AM) Normal Negative [facility] UA Auto SS Mucus Auto Ql (U) 2+ *ABN* (05/07/24 3:12 AM) Invalid Interpretation Code Negative [facility] UA Auto SS Nitrite Auto test strip Ql (U) Negative Normal Negativemg/dL [facility] UA Auto SS pH (U) 5.5 *NA* (05/07/24 3:12 AM) Invalid Interpretation Code 5.0 - 9.0 [facility] UA Auto SS Protein Ql (U) 1+ mg/dL Invalid Interpretation Code Negativemg/dL [facility] UA Auto SS RBC Ql (U) 4-20 graded/HPF Invalid Interpretation Code 0-3graded/HPF [facility] UA Auto SS Specific gravity (U) [Rel density] >1.050 (05/07/24 3:12 AM) Normal 1.005 - 1.030 [facility] UA Auto SS Urobilinogen (U) [Mass/Vol] Negative Normal Negativemg/dL [facility] UA Auto SS WBC Auto (Urine sed) [#/Area] 0-5 graded/HPF Normal 0-5graded/HPF [facility] UA Auto SS URINALYSISOrdered By: Rima Anthony on 05-07-2024 UA Spec Desc Clean Catch (05/07/24 3:12 AM) Normal [facility] UA Auto SS XR Chest Single Viewon 05-07 XR Chest Single View Exam Date/Time: 05/07/2024 07:45 EST Reason for Exam: Shortness of breath (SOB) Report IMPRESSION: MILDLY IMPROVED PULMONARY INFILTRATES VERSUS DIFFERENCES IN TECHNIQUE AND POSITIONING. EXAM: XR Chest Single View DATE: 05/07/2024 7:31 AM CLINICAL HISTORY: Shortness of breath (SOB). COMPARISON: Portable chest and chest CTA 05/06/2024. TECHNIQUE: A portable upright AP radiograph of the chest was obtained. FINDINGS: Mild airspace and interstitial opacities predominantly within the right and left lower lung zones appear improved from yesterday, which may be resolving edema or related to differences in technique and positioning. There is no worsening pulmonary infiltrate, cardiomegaly, vascular congestion, sizable pleural effusion, pneumothorax, or other significant changes identified. A left subclavian AICD remains in expected position. Ordering Provider: Pan Gar FINAL REPORT Dictated: 05/07/2024 8:39 am Jeramy Acosta MD Signed (Electronic Signature): 05/07/2024 8:39 am Signed by: Jeramy Acosta MD Transcribed by: BRIAN Technologist: TITUS Technical Comments Radiation Dose: Ka,r in mGy = na DAP = na Normal [facility] eGFRon 05-07-2024 eGFR 77 mL/min/1.73 m2 Normal >=59 [facility] Comment on above: Performed By: #### 1 [id number] #### [facility] [address] [place] [address] BMPon 05-06-2024 Creatinine [Mass/Vol] 1.5 mg/dL High 0.5-1.3 [facility] Comment on above: Performed By: #### 2 [id number] #### [facility] [address] [place] [address] Urea nitrogen/Creatinine [Mass ratio] 26 No Units High 10-20 [facility] Comment on above: Performed By: #### 2 [id number] #### [facility] [address] [place] [address] Anion gap [Moles/Vol] 13 mmol/L Normal 6-16 [facility] Comment on above: Performed By: #### 2 [id number] #### [facility] [address] [place] [address] Calcium [Mass/Vol] 8.4 mg/dL Low 8.9-11.1 [facility] Comment on above: Performed By: #### 2 [id number] #### [facility] [address] [place] [address] Chloride [Moles/Vol] 100 mmol/L Low 101-111 [facility] Comment on above: Performed By: #### 2 [id number] #### [facility] [address] [place] [address] CO2 [Moles/Vol] 26 mmol/L Normal 21-31 [facility] Comment on above: Performed By: #### 2 [id number] #### [facility] [address] [place] [address] Glucose [Mass/Vol] 92 mg/dL Normal 55-199 [facility] Comment on above: Performed By: #### 2 [id number] #### [facility] [address] [place] [address] Potassium [Moles/Vol] 3.8 mmol/L Normal 3.5-5.3 [facility] Comment on above: Performed By: #### 2 [id number] #### [facility] [address] [place] [address] Sodium [Moles/Vol] 135 mmol/L Normal 135-145 [facility] Comment on above: Performed By: #### 2 [id number] #### [facility] [address] [place] [address] Urea nitrogen [Mass/Vol] 39 mg/dL High 5-21 [facility] Comment on above: Performed By: #### 2 [id number] #### [facility] [address] [place] [address] BNPon 05-06-2024 Natriuretic peptide B (Bld) [Mass/Vol] 93 pg/mL High 5-80 [facility] Comment on above: Performed By: #### 1 [id number] #### [facility] [address] [place] [address] Blood Gas Art, with Lytes, G lilliam, [place] 05-06-2024 a/A Ratio Art 38.40 % Normal >=0.80 [facility] Comment on above: Performed By: #### 4 [id number] #### [facility] [address] [place] [address] AaDO2 Art 66.7 mmHg High 5.0-15.0 [facility] Comment on above: Performed By: #### 4 [id number] #### [facility] [address] [place] [address] Allens Test Positive Normal [facility] Comment on above: Performed By: #### 4 [id number] #### [facility] Laboratory [address] [place] [address] Base Excess Arterial 2.0 mmol/L Low >=2.8 [facility] Comment on above: Performed By: #### 4 [id number] #### [facility] Laboratory [address] [place] [address] cCa2+ Art 4.58 mg/dL Normal 4.40-5.30 [facility] Comment on above: Performed By: #### 4 [id number] #### [facility] [address] [place] [address] cCl- Art 101.0 mmol/L Normal 101.0-111.0 [facility] Comment on above: Performed By: #### 4 [id number] #### [facility] [address] [place] [address] cGlu Art 96 mg/dL Normal 55-99 [facility] Comment on above: Performed By: #### 4 [id number] #### [facility] [address] [place] [address] cK+ Art 3.9 mmol/L Normal 3.5-5.3 [facility] Comment on above: Performed By: #### 4 [id number] #### [facility] [address] [place] [address] cLac Art 1.0 mmol/L Normal .5-2.2 [facility] Comment on above: Performed By: #### 4 [id number] #### [facility] [address] [place] [address] kennel manager dog track+ Art 136.0 mmol/L Normal 135.0-145.0 [facility] Comment on above: Performed By: #### 4 [id number] #### [facility] [address] [place] [address] Drawn by adm Invalid Interpretation Code [facility] Comment on above: Performed By: #### 4 [id number] #### [facility] [address] [place] [address] FCOHb Art 1.7 % Normal 1.5-4.9 [facility] Comment on above: Result Comment: Refe rence range Nonsmoker <1.5% Smoker <5.0% Heavy Smoker <9.0% Performed By: #### 4 [id number] #### [facility] [address] [place] [address] FIO2 BG 21 Invalid Interpretation Code [facility] Comment on above: Performed By: #### 4 [id number] #### [facility] [address] [place] [address] FMetHb Art <1.0 Normal 0.0-1.9 [facility] Comment on above: Performed By: #### 4 [id number] #### [facility] [address] [place] [address] FO2Hb Art 79.7 % Low 93.0-100.0 [facility] Comment on above: Performed By: #### 4 [id number] #### [facility] [address] [place] [address] HCO3 (Bld) [Moles/Vol] 25.9 mmol/L Normal 22.0-26.0 [facility] Comment on above: Performed By: #### 4 [id number] #### [facility] [address] [place] [address] Hemoglobin (Bld) [Mass/Vol] 9.8 g/dL Low 12.0-17.0 [facility] Comment on above: Performed By: #### 4 [id number] #### [facility] [address] [place] [address] Oxygen saturation in Blood 81.1 % Low 95.0-100.0 [facility] Comment on above: Performed By: #### 4 [id number] #### [facility] [address] [place] [address] P CO2 Arterial 32.9 mmHg Low 35.0-45.0 [facility] Comment on above: Performed By: #### 4 [id number] #### [facility] [address] [place] [address] P O2 Arterial 41.6 mmHg Abnormal 80.0-100.0 [facility] Comment on above: Result Comment: Resu lts Called To Javier WALSH By Nando Crowell And Read Back For Confirmation On 05/06/2024 11:11:11 EST. Performed By: #### 4 [id number] #### [facility] Laboratory [address] [place] [address] pH Arterial 7.492 High 7.350-7.450 [facility] Comment on above: Performed By: #### 4 [id number] #### [facility] [address] [place] [address] Sample Site R Radial Normal [facility] Comment on above: Performed By: #### 4 [id number] #### [facility] [address] [place] [address] Sample Type Arterial Draw Normal [facility] Comment on above: Performed By: #### 4 [id number] #### [facility] Laboratory [address] [place], [place] [id number] CBC w/ Auto Diffon 5 Basophils/100 WBC (Bld) 0.6 % Normal 0.0-2.0 [facility] Comment on above: Performed By: #### 2 [id number] #### [facility] Laboratory [address] [place] [address] Basophils/Leukocytes Auto (Bld) [Pure # fraction] 0.0 E9/L Normal 0.0-0.2 [facility] Comment on above: Performed By: #### 2 [id number] #### [facility] Laboratory [address] [place] [address] [place] [address] Eosinophils (Bld) [#/Vol] 0.0 E9/L Normal 0.0-0.5 [facility] Comment on above: Performed By: #### 2 [id number] #### [facility] [address] [place] [address] Eosinophils/100 WBC (Bld) 0.2 % Normal 0.0-8.0 [facility] Comment on above: Performed By: #### 2 [id number] #### [facility] [address] [place] [address] Erythrocyte distribution width (RBC) [Ratio] 15.3 % High 10.9-14.2 [facility] Comment on above: Performed By: #### 2 [id number] #### [facility] [address] [place] [address] Hematocrit (Bld) [Volume fraction] 32.3 % Low 37.7-49.0 [facility] Comment on above: Performed By: #### 2 [id number] #### [facility] [address] [place] [address] Hemoglobin (Bld) [Mass/Vol] 11.0 g/dL Low 13.5-17.5 [facility] Comment on above: Performed By: #### 2 [id number] #### [facility] [address] [place] [address] Lymphocytes (Bld) [#/Vol] 2.0 E9/L Normal 1.0-4.0 [facility] Comment on above: Performed By: #### 2 [id number] #### [facility] [address] [place] [address] Lymphocytes/100 WBC (Bld) 32.5 % Normal 14.0-50.0 [facility] Comment on above: Performed By: #### 2 [id number] #### [facility] [address] [place] [address] MCH (RBC) [Entitic mass] 31.6 pg Normal 27.0-34.0 [facility] Comment on above: Performed By: #### 2 [id number] #### [facility] [address] [place] [address] MCHC (RBC) [Mass/Vol] 34.1 g/dL Normal 31.4-36.0 [facility] Comment on above: Performed By: #### 2 [id number] #### [facility] [address] [place] [address] MCV (RBC) [Entitic vol] 92.5 fL Normal 80.0-100.0 [facility] Comment on above: Performed By: #### 2 [id number] #### [facility] [address] [place] [address] Monocytes (Bld) [#/Vol] 0.4 E9/L Normal 0.2-1.0 [facility] Comment on above: Performed By: #### 2 [id number] #### [facility] [address] [place] [address] Neutrophils (Bld) [#/Vol] 3.7 E9/L Normal 2.0-7.5 [facility] Comment on above: Performed By: #### 2 [id number] #### [facility] [address] [place] [address] Neutrophils/100 WBC (Bld) 60.1 % Normal 36.0-75.0 [facility] Comment on above: Performed By: #### 2 [id number] #### [facility] [address] [place] [address] Platelet mean volume (Bld) [Entitic vol] 8.5 fL Normal 6.4-10.8 [facility] Comment on above: Performed By: #### 2 [id number] #### [facility] [address] [place] [address] Platelets (Bld) [#/Vol] 218.0 E9/L Normal 150.0-500.0 [facility] Comment on above: Performed By: #### 2 [id number] #### [facility] [address] [place] [address] RBC (Bld) [#/Vol] 3.5 E12/L Low 4.3-5.9 [facility] Comment on above: Performed By: #### 2 [id number] #### [facility] [address] [place] [address] WBC corrected for nucl RBC Auto (Bld) [#/Vol] 6.2 E9/L Normal 4.0-11.0 [facility] Comment on above: Performed By: #### 2 [id number] #### [facility] [address] [place] [address] CHEMISTRYOrdered By: SYSTEM SYSTEM on 05-06-2024 Iron [Mass/Vol] ug/dL Low 35 - 153 mcg/dL Andrea alisha Chem Iron binding capacity [Mass/Vol] 197 ug/dL Low 250 - 400 mcg/dL Remisol Chem LDH 452 [iU]/d High 93 - 218 Int._Unit/L Remisol Chem Transferrin [Mass/Vol] 141 mg/dL Low 200 - 370 mg/ dL Remisol Chem Troponin HS 31.10 pg/mL Normal 15.90 - 38.40 pg/mL [facility] Comment on above: Interpretive Data: T he 95% CI (Confidence Interval) PPV (Positive Predictive Value) for myocardial infarction in females is 38 pg/mL, in males 51 pg/mL. The results should be used in conjunction with clinical conditions of myocardial infarction. (Access High Sensitivity Troponin I Instructions For Use, Kristopher Windfall, November 2017) Albumin [Mass/Vol] 3.2 g/dL Low 3.3 - 5.0 gm/dL R emisol Chem Albumin/Globulin [Mass ratio] 1.0 {ratio} Low 1.1 - 2.2 Remisol Chem ALP [Catalytic activity/Vol] 70 [iU]/d Normal 21 - 98 Int._Unit/L Remisol Chem ALT No additional P-5'-P [Catalytic activity/Vol] 45 [iU]/d Normal 6 - 46 Int._Unit/L Remisol Chem AST [Catalytic activity/Vol] 89 [iU]/d High 5 - 43 Int._Unit/L Remisol Chem Bilirubin [Mass/Vol] 1.0 mg/dL Normal 0.0 - 1.1 mg/dL Remisol Chem Bilirubin.direct [Mass/Vol] 0.2 mg/dL Normal 0.0 - 0.4 mg/dL Remisol Chem Bilirubin.indirect [Mass or moles/Vol] 0.8 mg/dL Normal 0.1 - 0.9 mg/dL Remisol Chem Cobalamin (Vitamin B12) [Mass/Vol] 694 pg/mL Normal 50 - 1500 pg/mL Remisol Chem Ferritin [Mass/Vol] 436 ng/mL High 24 - 336 ng/mL R emisol Chem Folate [Mass/Vol] ng/mL Normal >=6.7ng/mL Remisol Chem Globulin (S) [Mass/Vol] 3.2 g/dL Normal 1.4 - 4.0 gm/dL Remisol Chem Lactic Acid Lvl 1.6 mmol/L Normal 0.5 - 2.2 mmol/L Remisol Chem Lipase [Catalytic activity/Vol] 74 U/L High 13 - 58 unit/L Remisol Chem Procalcitonin 0.22 ng/mL Normal 0.00 - 0.50 ng/mL [facility] Comment on above: Interpretive Data: < 0.5 ng/mL Low risk of severe sepsis and/or shock >2.0 ng/mL High risk of severe sepsis and/or shock Concentrations under 0.5 ng/mL do not exclude local infections or systemic infections in their initial stages (e.g.. under six hours from onset of illness). PCT concentrations between 0.5 and 2.0 ng/mL should be interpreted with consideration of the patient's history. In this range, it is recommended to retest PCT within 6 to 24 hours. Protein [Mass/Vol] 6.4 g/dL Normal 6.0 - 7.8 gm/dL R emisol Chem Troponin HS 36.70 pg/mL Normal 15.90 - 38.40 pg/mL [facility] Comment on above: Interpretive Data: T he 95% CI (Confidence Interval) PPV (Positive Predictive Value) for myocardial infarction in females is 38 pg/mL, in males 51 pg/mL. The results should be used in conjunction with clinical conditions of myocardial infarction. (Access High Sensitivity Troponin I Instructions For Use, Kristopher Windfall, November 2017) TSH Qn 3.01 m[IU]/L Normal 0.34 - 5.60 mcIU/mL Remisol Chem CHEMISTRYOrdered By: [place] on 05-06-2024 Natriuretic peptide B (Bld) [Mass/Vol] 93 pg/mL High 5 - 80 pg/mL [facility] HemeManSS COAGULATIONOrdered By: Maxim Man on 05-06-2024 aPTT Coag (PPP) [Time] 39.3 s High 25.1 - 36.5 second(s) [facility] Auto Coag Comment on above: Interpretive Data: P arameter 15 days - 4 weeks 1 - 5 months 6 - 11 months 1 - 5 years 6 - 10 years 11 - 17 years PTT Mean: 35.4 (27.6-45.6) Mean: 33.5 (24.8-40.7) Mean: 32.4 (25.1-40.7) Mean: 31.6 (24.0-39.2) Mean: 31.6 (26.9-38.7) Mean: 31.0 (24.6-38.4) Pediatric Reference ranges were obtained from a study by Marc Stewart et al. prepared from 1437 samples obtained at 7 different centers using the same coagulation reagent and instrumentation as [facility]. Currently there are no coagulation studies available worldwide for children to 14 days, and no normal ranges. Heparin therapeutic range (represented by Anti-Factor Xa activity of 0.2 - 0.4 U/mL) corresponds to PTT of 56.6 - 109.0 sec. COVID-19 ([facility])on 05-06-2024 SARS-CoV-2 (COVID-19) RNA JACQUELINE+probe Ql (Unsp spec) Not detected Normal Not Detected [facility] Comment on above: Result Comment: This assay was performed by reverse transcriptase real-time PCR method. Clinical correlation with patient history and other diagnostic information is necessary to determine patient infection status. Positive results are indicative of the presence of SARS-CoV-2 RNA. Positive results do not rule out bacterial infection or co-infection with other viruses. The agent detected may not be the definitive cause of disease. Negative results do not preclude SARS-CoV-2 infection and should not be used as the sole basis for patient management decisions. This testing is only for use under the FDA???s Emergency Use Authorization. Performed By: #### 2 [id number] #### [facility] Laboratory [address] [place] [address] SARS-CoV-2 (COVID-19) RNA JACQUELINE+probe Ql (Unsp spec) Pass Normal Pass [facility] Comment on above: Performed By: #### 2 [id number] #### [facility] [address] [place] [address] Specimen source Nom (Unsp spec) Nasal Normal [facility] Comment on above: Performed By: #### 2 [id number] #### [facility] [address] [place] [address] CT Abdomen/Pelvis w/ Contras ton 05-06-2024 CT Abdomen/Pelvis w/ Contrast Exam Date/Time: 05/06/2024 13:14 EST Reason for Exam: Pain Report IMPRESSION: HEPATIC STEATOSIS. SIGMOID DIVERTICULOSIS. CT OF THE ABDOMEN AND PELVIS WITH INTRAVENOUS CONTRAST MEDIUM. HISTORY: PAIN. GENERALIZED WEAKNESS. RECEIVING ANTICOAGULATION. TECHNICAL FACTORS: CT imaging of the abdomen and pelvis were obtained and formatted as 5 mm contiguous axial images from the domes of the diaphragm to the symphysis pubis. Sagittal and coronal reconstructions were also obtained. Oral contrast medium: None. Intravenous contrast medium: Isovue-300, 100 mL. Comparison: None Findings: Lower chest: Cardiac size normal. No pericardial effusion. No coronary artery calcification. Pacemaker wires right atrium and right ventricle. Small right pleural effusion. Bibasilar dependent subsegmental atelectatic change. Liver: Normal in size, shape, and decreased in attenuation. Bile Ducts: Normal in caliber. Gallbladder: No stones or wall thickening. Pancreas: Normal without masses, cysts, ductal dilatation or calcification. Spleen: Normal in size without masses or calcifications. No splenules. Kidneys: Normal in size and enhancement. No hydronephrosis, masses, or stones. Adrenals: Normal. Small bowel: Normal in caliber. Appendix: Not visualized. Colon: Normal in caliber. Diverticular change, sigmoid colon. Report Peritoneum: No ascites, free air, or fluid collections. Vessels: Aorta normal in course and caliber. Portal vein, splenic vein, superior mesenteric vein are patent. Lymph nodes: Retroperitoneal: No enlarged retroperitoneal lymph nodes. Mesenteric: No enlarged mesenteric lymph nodes. Pelvic: No enlarged pelvic lymph nodes. Ureters: Normal in course and caliber. No calcifications. Bladder: No wall thickening. Reproductive organs: No pelvic masses. Abdominal Wall: 5 mm fat-containing periumbilical anterior abdominal wall defect. No diastasis of rectus musculature. No edema or masses. Bones: No bone lesions. No degenerative changes. No post operative changes. All CT scans at this facility use dose modulation, iterative reconstruction, and/or weight based dosing when appropriate to reduce radiation dose to as low as reasonably achievable. Ordering Provider: Rima Anthony FINAL REPORT Dictated: 05/06/2024 1:31 pm Christos Valencia MD Signed (Electronic Signature): 05/06/2024 1:31 pm Signed by: Christos Valencia MD Transcribed by: BRIAN Technologist: YEISON Technical Comments GFR (mL/min/1/73m2) 47 Contrast: Isovue 370 Contrast amount in ml's: 100 Rectal Contrast Given? No Normal [facility] CT Head or Brain w/o Contras ton 05-06-2024 CT Head or Brain w/o Contrast Exam Date/Time: 05/06/2024 13:08 EST Reason for Exam: Headache Report IMPRESSION: RIGHT MAXILLARY SINUSITIS. REMOTE RIGHT FRONTAL LOBE INFARCT. MILD CEREBRAL ATROPHY WITH VENTRICULAR ENLARGEMENT. MILD EX VACUO DILATATION ANTERIOR HORN RIGHT LATERAL VENTRICLE. CT BRAIN. CONTRAST MEDIUM: WITHOUT CONTRAST.. HISTORY: WEAKNESS FOR 3 MONTHS. HEADACHE. RECEIVING ANTICOAGULATION. HISTORY OF STROKE. TECHNICAL FACTORS: CT imaging of the brain was obtained and formatted as 5 mm contiguous axial images. 2.5 mm contiguous axial images were obtained through the osseous structures. Sagittal and coronal reconstruction obtained during postprocessing. Comparison: None. Findings: Extra-axial spaces: Normal. Intracranial hemorrhage: None. Ventricular system: Ventricles mildly enlarged with sulci mildly prominent. Mild asymmetric enlargement anterior horn right lateral ventricle compared to contralateral side. Basal Cisterns: Normal. Cerebral Parenchyma: Area of encephalomalacia right frontal lobe, exerting no mass effect. Midline Shift: None. Cerebellum: Normal. Paranasal sinuses and mastoid air cells: Mild mucosal thickening, right maxillary sinus.. Visualized Orbits: Normal. Remote bilateral ocular surgery. Report All CT scans at this facility use dose modulation, iterative reconstruction, and/or weight based dosing when appropriate to reduce radiation dose to as low as reasonably achievable. Ordering Provider: Rima Anthony FINAL REPORT Dictated: 05/06/2024 1:17 pm Christos Valencia MD Signed (Electronic Signature): 05/06/2024 1:17 pm Signed by: Christos Valencia MD Transcribed by: BRIAN Technologist: YEISON [facility] CTA [place] 05-06-2024 CTA Chest Exam Date/Time: 05/06/2024 13:14 EST Reason for Exam: Shortness of breath (SOB) Report IMPRESSION: NO CT EVIDENCE PULMONARY EMBOLISM. BILATERAL PERIPHERAL GROUNDGLASS OPACITIES, GREATER ON RIGHT. THESE FINDINGS MAY BE SEEN IN PATIENTS HAVING COVID 19 PNEUMONIA. HOWEVER, OTHER INFECTIOUS AND INFLAMMATORY ETIOLOGIES MAY PROVIDE A SIMILAR RADIOGRAPHIC APPEARANCE. SMALL RIGHT PLEURAL EFFUSION. OTHER FINDINGS DISCUSSED. CTA CHEST WITH INTRAVENOUS CONTRAST MEDIUM. COMPARISON: NONE AVAILABLE REASON FOR EXAMINATION: WEAKNESS FOR 3 MONTHS. RECEIVING ANTICOAGULATION. TECHNIQUE: Helical CTA was performed through the chest utilizing 100 cc of Isovue 370 intravenous contrast. Images were obtained with bolus tracking in order to opacify the pulmonary arteries. Thick section coronal MIP 3D reconstructions were performed on a separate workstation. FINDINGS: Pulmonary arteries: No intraluminal filling defects. Cardiac: Size normal. No pericardial effusion. Coronary artery calcification identified. Pacemaker wires right atrium and right ventricle. Aorta: Normal in course and caliber. Lungs: Right lung shows no nodules or masses. Diffuse groundglass opacity, right upper lobe. Groundglass opacity also identified right lower lobe. No right pleural effusion with dependent subsegmental consolidation right lung base. No pneumothorax. Left lung shows dependent subsegmental atelectatic change, left upper lobe.. Groundglass opacity with left lower lobe dependent subsegmental consolidation. No pleural effusion, nodules, masses, pneumothorax. Lymph nodes: 1 cm right precarinal lymph node enlargement. No mediastinal, and no axillary lymph node enlargement. Upper abdomen: Limited imaging upper abdomen shows small hiatal hernia. Musculoskeletal: No osteoblastic, and no osteolytic lesions. All CT scans at this facility use dose modulation, iterative reconstruction, and/or weight based dosing when appropriate to reduce radiation dose to as low as reasonably Report achievable. Ordering Provider: Rima Antohny FINAL REPORT Dictated: 05/06/2024 1:24 pm Christos Valencia MD Signed (Electronic Signature): 05/06/2024 1:24 pm Signed by: Christos Valencia MD Transcribed by: BRIAN Technologist: YEISON Technical Comments GFR (mL/min/1/73m2) 47 Contrast: Isovue 370 Contrast amount in ml's: 100 Normal [facility] ED Clinical Summaryon 2024 ED Clinical Summary ED Clinical Summary [address] [address] ED Clinical Summary Person Information Name: BENNIE DENNIS [place] Age: 78 Years : 1945 Sex: Male Language: Citizen Of [place] PCP: Pete Gar MD Marital Status: Visit Id: Visit Reason: Respiratory problem; Blood in stool; Weakness or fatigue; ABD EISV-TILF-DCTO WALKING-WEAKNESS Speciality: Acuity: 1 Enc Type: Inpatient Med Service: Medical Arrival: 05/06/2024 10:29:54 Discharge: LOS: 000 05:59 Checkin: 05/06/2024 10:29:54 Checkout: 05/06/2024 16:28:09 Dispo Type: Admit to [facility]U EVENTS: Event Name Event Status Request Date/Time Start Date/Time Complete Date/Time Arrive Complete 05/06/2024 10:29:54 05/06/2024 10:29:54 05/06/2024 10:29:54 Document Home Meds Request 05/06/2024 10:29:54 Triage Complete 05/06/2024 10:29:54 05/06/2024 10:45:08 05/06/2024 10:45:08 Bed Assign Complete 05/06/2024 10:40:06 05/06/2024 10:40:06 05/06/2024 10:40:06 Dr Exam Complete 05/06/2024 10:40:06 05/06/2024 10:40:35 05/06/2024 10:40:35 RN Exam Complete 05/06/2024 10:40:06 05/06/2024 11:03:32 05/06/2024 11:03:32 Registration Complete 05/06/2024 10:40:35 05/06/2024 10:48:11 05/06/2024 10:48:11 EKG Complete 05/06/2024 10:44:45 05/06/2024 10:56:23 Pending Labs Complete 05/06/2024 10:48:00 05/06/2024 11:11:15 RT Tx/ABG Request 05/06/2024 10:48:00 Reg Complete Request 05/06/2024 10:48:11 Reg Bed Request Complete 05/06/2024 10:48:11 05/06/2024 10:48:11 05/06/2024 10:48:11 Pending Labs Request 05/06/2024 10:52:13 Lab Inlab 05/06/2024 10:52:13 Patient Care Complete 05/06/2024 10:52:13 05/06/2024 11:02:26 X-Ray Complete 05/06/2024 10:52:13 05/06/2024 11:14:09 05/06/2024 11:28:55 Pending Labs Complete 05/06/2024 11:07:30 05/06/2024 11:07:30 05/06/2024 12:15:14 Lab Complete 05/06/2024 11:07:30 05/06/2024 11:07:30 05/06/2024 12:15:14 Wet Read Request 05/06/2024 11:28:55 Pending Labs Cancel 05/06/2024 11:49:07 05/06/2024 11:53:54 Lab Cancel 05/06/2024 11:49:07 05/06/2024 11:53:54 Meds Admin Complete 05/06/2024 11:49:07 05/06/2024 11:54:28 Pending Labs Complete 05/06/2024 11:54:53 05/06/2024 11:54:53 05/06/2024 12:48:51 Lab Complete 05/06/2024 11:54:53 05/06/2024 11:54:53 05/06/2024 12:31:19 CT Complete 05/06/2024 12:29:47 05/06/2024 12:48:17 05/06/2024 13:14:06 CT Complete 05/06/2024 12:33:38 05/06/2024 12:48:17 05/06/2024 13:08:06 Meds Admin Request 05/06/2024 13:43:43 Consult Request 05/06/2024 13:49:42 Hospitalist Consult Request 05/06/2024 13:49:42 Pending Labs Request 05/06/2024 13:51:42 Lab Request 05/06/2024 13:51:42 Pending Labs Cancel 05/06/2024 13:52:38 05/06/2024 14:50:58 Lab Cancel 05/06/2024 13:52:38 05/06/2024 14:50:58 Pending Labs Cancel 05/06/2024 13:53:40 05/06/2024 14:46:16 Admit Request 05/06/2024 14:19:10 Patient Care Cancel 05/06/2024 14:19:10 05/06/2024 15:43:05 Patient Care Request 05/06/2024 14:19:11 Patient Care Request 05/06/2024 14:19:12 Patient Care Request 05/06/2024 14:19:12 Patient Care Request 05/06/2024 14:19:12 Medicare Form Complete 05/06/2024 14:19:13 05/06/2024 15:22:42 Patient Care Request 05/06/2024 14:19:13 Patient Care Request 05/06/2024 14:19:14 Pending Labs Request 05/06/2024 14:34:21 Patient Care Request 05/06/2024 14:34:21 Consult Request 05/06/2024 14:34:21 Patient Care Request 05/06/2024 14:35:12 Pending Labs Request 05/06/2024 14:35:12 Lab Request 05/06/2024 14:35:12 Meds Admin Request 05/06/2024 14:35:12 RT Request 05/06/2024 14:35:12 RT Tx/ABG Request 05/06/2024 14:35:14 RT Tx/ABG Request 05/06/2024 14:35:14 RT Tx/ABG Request 05/06/2024 14:35:14 RT Tx/ABG Request 05/06/2024 14:35:14 Pending Labs Complete 05/06/2024 14:47:04 05/06/2024 14:47:04 05/06/2024 15:04:38 Lab Complete 05/06/2024 14:47:04 05/06/2024 14:47:04 05/06/2024 15:04:38 Echo Request 05/06/2024 14:48:18 Meds Admin Request 05/06/2024 14:48:18 Patient Care Request 05/06/2024 14:48:18 Pending Labs Complete 05/06/2024 14:49:30 05/06/2024 15:04:47 Lab Complete 05/06/2024 14:49:30 05/06/2024 14:49:30 05/06/2024 15:04:47 Pending Labs Complete 05/06/2024 14:50:06 05/06/2024 14:50:06 05/06/2024 14:50:07 Pending Labs Complete 05/06/2024 14:51:48 05/06/2024 14:51:48 05/06/2024 15:34:27 Lab Complete 05/06/2024 14:51:48 05/06/2024 14:51:48 05/06/2024 15:34:27 Meds Admin Request 05/06/2024 14:55:26 RT Request 05/06/2024 15:00:44 Meds Admin Request 05/06/2024 15:06:06 Pending Labs Inlab 05/06/2024 15:29:11 Lab Inlab 05/06/2024 15:29:11 Pending Labs Cancel 05/06/2024 15:37:23 05/06/2024 16:16:11 Lab Cancel 05/06/2024 15:37:23 05/06/2024 16:16:11 Meds Admin Request 05/06/2024 15:53:37 Meds Admin Request 05/06/2024 16:01:57 Patient Care Request 05/06/2024 16:06:06 Pending Labs Request 05/06/2024 16:16:53 Lab Request 05/06/2024 16:16:53 Inpatient Bed Ready Complete 05/06/2024 16:28:09 05/06/2024 16:28:09 05/06/2024 16:28:09 ADDRESS: [address] [facility] [id number] PHYS DOC NOTES: ME (more content not included)... Normal [facility] ED Note-Physicianon 05-06-19 ED Note-Physician ED Note-Physician Basic Information Time Seen: Gabrielle CasasRima 05/06/2024 10:40 Chief Complaint per family pt has had genralized weakness for three months, has concern for anemia due to this. pt on thinners. had some blood in his breif this morning per . History of Present Illness The patient is a 78-year-old male past medical history of coronary artery disease, paroxysmal atrial fibrillation, hypercholesterolemia who presented to the emergency room with his for generalized weakness. The patient states weakness has been all over for over a month. The patient's states that she physically has to lift him up from the couch to help him stand. The patient denies any headache. Denies any dizziness. He denies any chest pain, denies any shortness of breath. The states that she hears him breathing heavy sometimes. The states that he is cold all the time. They deny any fever. The patient denies any nausea, denies any vomiting. He states he had diarrhea a few days ago that has stopped. Denies any black or bloody stool. The patient stated he had some blood in urine today. Denies any burning with urination. The patient reports discomfort on his abdomen on and off for past month. He denies any abdominal pain currently. The patient denies any other associated symptoms. Review of Systems Additional ROS info: Except as noted in the above Review of Systems and in the History of Present Illness all other systems have been reviewed and are negative or noncontributory. Physical Exam Vitals & Measurements T: 36.9 ???C(Oral) HR: 95(Monitored) RR: 16 BP: 99/53 SpO2: 94% HT: 172 cm WT: 62.6 kg BMI: 21.16 General: alert, no acute distress, weak appearing Skin: warm, dry Head: no trauma, normocephalic Neck: Trachea midline, no tenderness, supple Eye: normal conjunctiva, sclera clear, PERRL, EOMI, vision unchanged ENMT: Oral mucosa moist, no pharyngeal erythema or exudate Cardiovascular: regular rate and rhythm Respiratory: Lungs basilar rales on the left, respirations non labored Gastrointestinal: soft, non distended, no tenderness, no guarding Extremities: no deformity, no trauma Neurological: Alert and oriented, CN II-XII intact, motor strength equal & normal bilaterally, sensation equal & normal bilaterally, speech normal, no focal neuro deficits Psychiatric: cooperative, affect appropriate for age, Medical Decision Making MEDICAL DECISION MAKING Number and Complexity of Problems Differential Diagnosis: [] [facility] Data External documents reviewed: [] My EKG interpretation: [] My CT interpretation: [] My X-ray interpretation: [] My Ultrasound interpretation: [] Decision rules/scores evaluated: [] Discussed with: Hospitalist Treatment and Disposition ED Course: The patient presented with generalized weakness. He was found to be hypoxic in the emergency room. The patient was saturating 86% on room air. More likely this is due to pneumonia. Initially the chest x-ray shows no acute cardiopulmonary disease per radiologist reading. The patient at 1 point had stated to me that a month ago he had had a very sharp head pain/headache that went away. Based on him feeling weak CT of the brain was done and shows no acute intracranial process. CT angiography shows no pulmonary embolism but bilateral groundglass opacities. The patient has acute kidney injury. More likely due to hypotension which is more likely from dehydration. The patient was given 2 L of normal saline and his blood pressure improved after the second liter of IV fluid. Blood cultures were obtained. The patient was started on Rocephin and Zithromax for community-acquired pneumonia. The case is discussed with hospitalist and the patient will be admitted to the hospitalist services. Shared decision making: Patient and his Code status: [] Critical Care Time: 40 minutes, critical care time is separate from any procedures that are performed. The following was considered in the determination of critical care but not limited to the level medical decision-making, intensive cardiac and/or respiratory monitor, frequent vital sign monitoring, evaluation of laboratory studies, evaluation of a radiographic studies, oxygen monitoring and constant monitoring. Assessment/Plan 1. Acute hypoxic respiratory failure (J96.01: Acute respiratory failure with hypoxia) 2. Hypotension due to hypovolemia (E86.1: Hypovolemia) 3. PNA (pneumonia) (J18.9: Pneumonia, unspecified organism) 4. Pleural effusion on right (J90: Pleural effusion, not elsewhere classified) 5. Acute sinusitis (J01.90: Acute sinusitis, unspecified) 6. Anemia (D64.9: Anemia, unspecified) 7. Acute kidney injury (N17.9: Acute kidney failure, unspecified) 8. 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 Chronic systolic heart failure (I50.22: Chronic systolic (congestive) heart failure) 10. Paroxysmal A-fib (more content not included)... Normal [facility] Comment on above: Result Comment: Elec tronically Signed By: Rima Anthony M.D.\.br\Date and Time Signed: 05/06/24 16:21 EST ED Patient Education Noteon 05-06-2024 ED Patient Education Note ED Patient Education Note Normal [facility] ED Patient Summaryon 025 ED Patient Summary ED Patient Summary [place] [id number] Patient Discharge Instructions Person Information Name: BENNIE DENNIS Age: 78 Years Arrival Date: 05/06/2024 10:29:54 Discharge Diagnosis: 1:Acute hypoxic respiratory failure; 2:Hypotension due to hypovolemia; 3:PNA (pneumonia); 4:Pleural effusion on right; 5:Acute sinusitis; 6:Anemia; 7:Acute kidney injury; 8: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; 9:Chronic systolic heart failure; 10:Paroxysmal A-fib; 11:HTN (hypertension); 12:HLD (hyperlipidemia); 13:Pancreatic insufficiency; 14:UC (ulcerative colitis); 15:BPH (benign prostatic hyperplasia); 16:History of CVA with residual deficit; 17:On deep vein thrombosis (DVT) prophylaxis Primary Care Physician: Pete Gar MD Provider Information Primary Provider: Rima Anthony M.D. Advanced Log Sorting Supervisor:None The exam and treatment you received in the Emergency Department were for an urgent problem and are not intended as complete care. It is important that you follow up with a doctor, nurse practitioner, or physician???s accounting administrative assistant for ongoing care. If your symptoms become worse or you do not improve as expected and you are unable to reach your usual health care provider, you should return to the Emergency Department. We are available 24 hours a day. BENNIE DENNIS has been given the following list of patient education materials, prescriptions and follow-up instructions: Follow-up Instructions: In the event that this physician does not participate in your insurance network, please consult with your insurance company to find a nearby participating provider. Patient Education Materials: A MESSAGE TO ALL PATIENTS REGARDING OPIOIDS PRESCRIPTION OPIOIDS: WHAT YOU NEED TO KNOW Prescription opioids can be used to help relieve trytjssa-qz-siinse pain and are often prescribed following a surgery or injury, or for certain health conditions. These medications can be an important part of the treatment but also come with serious risks. It is important to work with your healthcare provider to make sure you are getting the safest, most effective care. WHAT ARE THE RISKS AND SIDE EFFECTS OF OPIOID USE? Prescription opioids carry serious risks of addiction and overdose, especially with prolonged use. An opioid overdose, often marked by slowed breathing, can cause sudden . The use of prescription opioids can have a number of side effects as well, even when taken as directed: ??? Tolerance???meaning you might need to take more of the medication for the same pain relief ??? Physical dependence???meaning you have symptoms of withdrawal when a medication is stopped ??? Increased sensitivity to pain ??? Constipation ??? Nausea, vomiting, and dry mouth ??? Sleepiness and dizziness ??? Confusion ??? Depression ??? Low levels of testosterone that can result in lower sex drive, energy, and strength ??? Itching and sweating RISKS ARE GREATER WITH: ??? History of drug misuse, substance use disorder, or overdose ??? Mental health conditions (such as depression or anxiety) ??? Sleep apnea ??? Older age (65 years and older) ??? Avoid alcohol while taking prescription opioids. Also, unless specifically advised by your health care provider, medications to avoid include: ??? Benzodiazepines (such as Xanax or Valium) ??? Muscle relaxants (such as Soma or Flexeril) ??? Hypnotics (such as Ambien or Lunesta) ??? Other prescription opioids KNOW YOUR OPTIONS Talk to your health care provider about ways to manage your pain that don???t involve prescription opioids. Some of these options may actually work better and have fewer risks and side effects. Options may include: ??? Pain relievers such as acetaminophen, ibuprofen, and naproxen ??? Some medication that are also used for depression or seizures ??? Physical therapy and exercise ??? Cognitive behavioral therapy, a psychological, goal-directed approach, in which patients learn how to modify physical, behavioral, and emotional triggers of pain and stress. IF YOU ARE PRESCRIBED OPIOIDS FOR PAIN: ??? Never take opioids in greater amounts or more often than prescribed. ??? Follow up with your primary health care provider. o Work together to create a plan on how to manage your pain. o Talk about ways to help manage your pain that don???t involve prescription opioids. o Talk about any and all concerns and side effects. ??? Help prevent misuse and abuse o Never sell or share prescription opioids. o Never use another person???s prescription opioids. ??? Store prescription opioids in a secure place and out of reach of others (this may include visitors, children, friends, and family). ??? Safely dispose of unused prescription opioids: Find your community drug take-back program or your pharmacy mail-back program, or flush them down (more content not included)... Normal [facility] FT Blood GasesOrdered By: Maria Ines Delgadillo on 05-06-2024 a/A Ratio Art 38.40 % Normal >=0.80% FT Resp Auto SS AaDO2 Art 66.7 mm[Hg] High 5.0 - 15.0 mmHg [facility] Res p Auto SS Allens Test Positive (05/06/24 11:08 AM) Normal FT Resp Auto SS Base Excess Arterial 2.0 mmol/L Low >=2.8mmol/L FTM C Resp Auto SS cCa2+ Art 4.58 mg/dL Normal 4.40 - 5.30 mg/dL FT Resp Auto SS cCl- Art 101.0 mmol/L Normal 101.0 - 111.0 mmol/L FT Resp Auto SS cGlu Art 96 mg/dL Normal 55 - 99 mg/dL FT Resp Auto SS cK+ Art 3.9 mmol/L Normal 3.5 - 5.3 mmol/L [facility] Resp Auto SS cLac Art 1.0 mmol/L Normal 0.5 - 2.2 mmol/L [facility] Resp Auto SS kennel manager dog track+ Art 136.0 mmol/L Normal 135.0 - 145.0 mmol/L [facility] Resp Auto SS Drawn by adm Invalid Interpretation Code [facility] Resp Auto SS FCOHb Art 1.7 % Normal 1.5 - 4.9 % [facility] Resp Auto SS Comment on above: Interpretive Data: R eference range Nonsmoker <1.5% Smoker <5.0% Heavy Smoker <9.0% FMetHb Art % Normal 0.0 - 1.9 % [facility] Resp Auto SS FO2Hb Art 79.7 % Low 93.0 - 100.0 % [facility] Resp Auto SS HCO3 (Bld) [Moles/Vol] 25.9 mmol/L Normal 22.0 - 26.0 mmol/L [facility] Resp Auto SS Hemoglobin (Bld) [Mass/Vol] 9.8 g/dL Low 12.0 - 17.0 gm/dL [facility] Resp Auto SS P CO2 Arterial 32.9 mm[Hg] Low 35.0 - 45.0 mmHg [facility] Resp Auto SS P O2 Arterial 41.6 mm[Hg] Invalid Interpretation Code 80.0 - 100.0 mmHg [facility] Resp Auto SS Comment on above: Result Comment: Resu lts Called To Javier WALSH By Nando Crowell And Read Back For Confirmation On 05/06/2024 11:11:11 EST. pH (Bld) 7.492 [pH] High 7.350 - 7.450 [facility] Resp Auto SS Sample Site R Radial (05/06/24 11:08 AM) Normal [facility] Resp Auto SS Sample Type Arterial Draw (05/06/24 11:08 AM) Normal [facility] Resp Auto SS Sodium [Moles/Vol] 21 mmol/L Invalid Interpretation Code [facility] Resp Auto SS Ferritinon 05-06-2024 Ferritin [Mass/Vol] 436 ng/mL High 24-336 [facility] Comment on above: Performed By: #### 2 [id number] #### [place] [facility] [address] [place] [address] Folateon 05-06-2024 Folate [Mass/Vol] ng/mL Normal >=6.7 [facility] Comment on above: Performed By: #### 2 [id number] #### [facility] [address] [place] [address] HEMATOLOGYOrdered By: SYSTEM SYSTEM on 05-06-2024 Reticulocytes/100 RBC (Bld) 1.7 % Normal 0.5 - 2.2 % Remisol Heme Hep Func Panelon 05-06-2024 Albumin [Mass/Vol] 3.2 g/dL Low 3.3-5.0 [facility] Comment on above: Performed By: #### 2 [id number] #### [facility] [address] [place] [address] Albumin/Globulin (S) [Mass conc ratio] 1.0 Low 1.1-2.2 [facility] Comment on above: Performed By: #### 2 [id number] #### [facility] [address] [place] [address] ALP [Catalytic activity/Vol] 70 Int._Unit/L Normal 21-98 [facility] Comment on above: Performed By: #### 2 [id number] #### [facility] [address] [place] [address] ALT No additional P-5'-P [Catalytic activity/Vol] 45 Int._Unit/L Normal 6-46 [facility] Comment on above: Performed By: #### 2 [id number] #### [facility] [address] [place] [address] AST [Catalytic activity/Vol] 89 Int._Unit/L High 5-43 [facility] Comment on above: Performed By: #### 2 [id number] #### [facility] [address] [place] [address] Bilirubin [Mass/Vol] 1.0 mg/dL Normal 0.0-1.1 [facility] Comment on above: Performed By: #### 2 [id number] #### [facility] [address] [place] [address] Bilirubin.direct [Mass/Vol] 0.2 mg/dL Normal 0.0-0.4 [facility] Comment on above: Performed By: #### 2 [id number] #### [facility] [address] [place] [address] Bilirubin.indirect [Mass or moles/Vol] 0.8 mg/dL Normal 0.1-0.9 [facility] Comment on above: Performed By: #### 2 [id number] #### [facility] [address] [place] [address] Globulin (S) [Mass/Vol] 3.2 g/dL Normal 1.4-4.0 [facility] Comment on above: Performed By: #### 2 [id number] #### [facility] [address] [place] [address] Protein [Mass/Vol] 6.4 g/dL Normal 6.0-7.8 [facility] Comment on above: Performed By: #### 2 [id number] #### [facility] [address] [place] [address] Ironon 05-06-2024 Iron [Mass/Vol] ug/dL Low 35-153 [facility] Comment on above: Performed By: #### 2 [id number] #### [facility] [address] [place] [address] LDHon 05-06-2024 LDH 452 Int._Unit/L High 93-218 [facility] Comment on above: Performed By: #### 2 [id number] #### [facility] [address] [place] [address] Laboratory - Microbiology an d Antimicrobial susceptibilityOrdered By: Linda Umanzor on 05-06-2024 MRSA DNA JACQUELINE+probe Ql (Unsp spec) MRSA Negative. [facility] Lactic Acidon 05-06-2024 Lactic Acid Lvl 1.6 mmol/L Normal 0.5-2.2 [facility] Comment on above: Performed By: #### 2 [id number] #### [facility] [address] [place] [address] Lipase Levelon 05-06-2024 Lipase [Catalytic activity/Vol] 74 U/L High 13-58 [facility] Comment on above: Performed By: #### 2 [id number] #### [facility] [address] [place] [address] MICRO OTHER TESTSOrdered By: Monica Gerald on 05-06-2024 Rapid COV Int NEG Ctl Pass (05/06/24 2:53 PM) Normal FT Man [facility]ero Rapid COV Int POS Ctl Pass (05/06/24 2:53 PM) Normal [facility] Man Sero SARS-CoV+SARS-CoV-2 (COVID-19) Ag IA.rapid Ql (Resp) Not Detected 20 (05/06/24 2:53 PM) Normal Not Detected [facility] Comment on above: Interpretive Data: Renetta velia [facility] Veritor System for Rapid Detection of SARS-CoV-2 is a chromatographic digital immunoassay intended for the direct and qualitative detection of SARS-CoV-2 nucleocapsid antigens in nasal swabs from individuals who are suspected of COVID-19 by their healthcare provider within the first five days of the onset of symptoms. Negative results should be treated as presumptive, do not rule out SARS-CoV-2 infection and should not be used as the sole basis for treatment or patient management decisions, including infection control decisions. Negative results should be considered in the context of a patient s recent exposures, history and the presence of clinical signs and symptoms consistent with COVID-19, and confirmed with a molecular assay, if necessary, for patient management. For in vitro diagnostic use. In the [facility], only for use under an Emergency Use Authorization. In the [place], this test has not been FDA cleared or approved; this test has been authorized by FDA under an EUA for use by authorized laboratories; use by laboratories certified under the CLIA, 42 U.S.C. 263a, that meet requirements to perform moderate, high, or waived complexity tests and at the Point of Care (POC), i.e., in patient care settings operating under a CLIA Certificate of Waiver, Certificate of Compliance, or Certificate of Accreditation. This test has been authorized only for the detection of proteins from SARS-CoV-2, not for any other viruses or pathogens; and, in the [place], this test is only authorized for the duration of the declaration that circumstances exist justifying the authorization of emergency use of in vitro diagnostics for detection and/or diagnosis of the virus that causes COVID-19 under Section 564(b)(1) of the Act, 21 U.S.C. 360bbb-3(b)(1), unless the authorization is terminated or revoked sooner. No Panel InformationOrdered By: [facility] MICROBIOLOGY on 05-06-2024 Blood Culture Charcoal No growth at 7 days. [facility] Blood Culture Charcoal No growth at 7 days. [facility] PT & PTTon 05-06-2024 aPTT Coag (PPP) [Time] 39.3 second(s) High 25.1-36.5 [facility] Comment on above: Result Comment: Para meter 15 days - 4 weeks 1 - 5 months 6 - 11 months 1 - 5 years 6 - 10 years 11 - 17 years PTT Mean: 35.4 (27.6-45.6) Mean: 33.5 (24.8-40.7) Mean: 32.4 (25.1-40.7) Mean: 31.6 (24.0-39.2) Mean: 31.6 (26.9-38.7) Mean: 31.0 (24.6-38.4) Pediatric Reference ranges were obtained from a study by Marc Stewart et al. prepared from 1437 samples obtained at 7 different centers using the same coagulation reagent and instrumentation as [facility]. Currently there are no coagulation studies available worldwide for children to 14 days, and no normal ranges. Heparin therapeutic range (represented by Anti-Factor Xa activity of 0.2 - 0.4 U/mL) corresponds to PTT of 56.6 - 109.0 sec. Performed By: #### 1 [id number] #### [facility] [address] [place] [address] INR Coag (PPP) [Relative time] 2.07 {INR} Invalid Interpretation Code [facility] Comment on above: Result Comment: INR results are specifically intended to assess patients stabilized on long-term Anticoagulation therapy suggested INR???s ???Less Intensive Anticoagulation??? 2.0 ??? 3.0 Conventional Range 3.0 ??? 4.5 Performed By: #### 1 [id number] #### [facility] [address] [place] [address] PT Coag (PPP) [Time] 23.3 second(s) High 9.4-12.5 [facility] Comment on above: Result Comment: 15 d ays - 4 weeks 1 - 5 months 6 -11 months 1- 5 years 6-10 years 11 -17 years Mean: 11.2 (9.5-12.6) Mean: 11.0 (9.7-12.8) Mean: 11.0 (9.8-13.0) Mean: 11.3 (9.9-13.4) Mean: 11.7 (10.0-14.6) Mean: 11.8 (10.0 - 14.1) Pediatric Reference ranges were obtained from a study by rox Rowell al. prepared from 1437 samples obtained at 7 different centers using the same coagulation reagent and instrumentation as [facility]. Currently there are no coagulation studies available worldwide for children to 14 days, and no normal ranges. Performed By: #### 1 [id number] #### [facility] [address] [place] [address] Procalcitoninon 05-06-2024 Procalcitonin .22 ng/mL Normal .00-.50 [facility] Comment on above: Result Comment: <0.5 ng/mL Low risk of severe sepsis and/or shock >2.0 ng/mL High risk of severe sepsis and/or shock Concentrations under 0.5 ng/mL do not exclude local infections or systemic infections in their initial stages (e.g.. under six hours from onset of illness). PCT concentrations between 0.5 and 2.0 ng/mL should be interpreted with consideration of the patient's history. In this range, it is recommended to retest PCT within 6 to 24 hours. Performed By: #### 2 [id number] #### [facility] [address] [place] [address] Rapid COVID Antigen ([facility])on 05-06-2024 Rapid COV Int NEG Ctl Pass Normal Fis [facility] Comment on above: Performed By: #### 2 [id number] #### [facility] [address] [place] [address] Rapid COV Int POS Ctl Pass Normal Fis her [facility] Comment on above: Performed By: #### 2 [id number] #### [facility] [address] [place] [address] SARS-CoV+SARS-CoV-2 (COVID-19) Ag IA.rapid Ql (Resp) Not detected Normal Not Detected [facility] Comment on above: Result Comment: [facility] Veritor??? System for Rapid Detection of SARS-CoV-2 is a chromatographic digital immunoassay intended for the direct and qualitative detection of SARS-CoV-2 nucleocapsid antigens in nasal swabs from individuals who are suspected of COVID-19 by their healthcare provider within the first five days of the onset of symptoms. Negative results should be treated as presumptive, do not rule out SARS-CoV-2 infection and should not be used as the sole basis for treatment or patient management decisions, including infection control decisions. Negative results should be considered in the context of a patient???s recent exposures, history and the presence of clinical signs and symptoms consistent with COVID-19, and confirmed with a molecular assay, if necessary, for patient management. For in vitro diagnostic use. In the [place], only for use under an Emergency Use Authorization. In the [place], this test has not been FDA cleared or approved; this test has been authorized by FDA under an EUA for use by authorized laboratories; use by laboratories certified under the CLIA, 42 U.S.C. ???263a, that meet requirements to perform moderate, high, or waived complexity tests and at the Point of Care (POC), i.e., in patient care settings operating under a CLIA Certificate of Waiver, Certificate of Compliance, or Certificate of Accreditation. This test has been authorized only for the detection of proteins from SARS-CoV-2, not for any other viruses or pathogens; and, in the [place], this test is only authorized for the duration of the declaration that circumstances exist justifying the authorization of emergency use of in vitro diagnostics for detection and/or diagnosis of the virus that causes COVID-19 under Section 564(b)(1) of the Act, 21 U.S.C. ??? 360bbb-3(b)(1), unless the authorization is terminated or revoked sooner. Performed By: #### 2 [id number] #### [facility] [address] [place] [address] Reference Laboratory Testing Ordered By: Li WatersUselola on 05-06-2024 Cortisol [Mass/Vol] 24.1 ug/dL High 6.2-19.4mcg/dL [place] [facility] [place] [facility] Comment on above: Result Comment: Abrahan baker Note: The reference interval and flagging for this test is for an AM collection. If this is a PM collection please use: Cortisol PM: 2.3-11.9 Performed at: [facility] [id number] PhD Brandyn Madera Respiratory Panel by PCRon 0 05-06-2024 Adenovirus DNA JACQUELINE+non-probe Ql (Nph) Not detected Normal [facility] Comment on above: Result Comment: Test ing was performed using nucleic acid amplification including Influenza A, Influenza A H1, Influenza A H3, Influenza B, RSV A, RSV B, Adenovirus, Human Metapneumovirus, Parainfluenza 1,2,3, and 4, Rhinovirus, Bordetella parapertussis/bronchiseptica, Bordetella holmesii, and Bordetella pertussis. Performed By: #### 1 [id number] #### [facility] [address] [place] [address] B. parapertussis DNA JACQUELINE+probe Ql (Upper resp) Not detected Normal Not Detected [facility] Comment on above: Performed By: #### 1 [id number] #### [facility] [address] [place] [address] B. pertussis DNA JACQUELINE+probe Ql (Upper resp) Not detected Normal Not Detected [facility] Comment on above: Performed By: #### 1 [id number] #### [facility] [address] [place] [address] FLUAV H1 RNA JACQUELINE+non-probe Ql (Nph) Not detected Normal [facility] Comment on above: Performed By: #### 1 [id number] #### [facility] [address] [place] [address] FLUAV H3 RNA JACQUELINE+non-probe Ql (Nph) Not detected Normal [facility] Comment on above: Performed By: #### 1 [id number] #### [facility] [address] [place] [address] FLUAV RNA JACQUELINE+non-probe Ql (Nph) Not detected Normal [facility] Comment on above: Performed By: #### 1 [id number] #### [facility] [address] [place] [address] FLUBV RNA JACQUELINE+non-probe Ql (Nph) Not detected Normal [facility] Comment on above: Performed By: #### 1 [id number] #### [facility] [address] [place] [address] Human Metapneumovirus Not detected Normal [facility] Comment on above: Result Comment: This test result should be correlated with clinical presentations and medical history by a healthcare provider to determine its clinical significance. Performed By: #### 1 [id number] #### [facility] [address] [place] [address] Parainfluenza virus 1 RNA JACQUELINE+non-probe Ql (Nph) Not detected Normal [facility] Comment on above: Performed By: #### 1 [id number] #### [facility] [address] [place] [address] Parainfluenza virus 2 RNA JACQUELINE+non-probe Ql (Nph) Not detected Normal [facility] Comment on above: Performed By: #### 1 [id number] #### [facility] [address] [place] [address] Parainfluenza virus 3 RNA JACQUELINE+non-probe Ql (Nph) Not detected Normal [facility] Comment on above: Performed By: #### 1 [id number] #### [facility] [address] [place] [address] Parainfluenza virus 4 RNA JACQUELINE+non-probe Ql (Nph) Not detected Normal [facility] Comment on above: Performed By: #### 1 [id number] #### [facility] [address] [place] [address] Resp Panel Intrl QC Pass Normal [facility] Comment on above: Performed By: #### 1 [id number] #### [facility] [address] [place] [address] Rhinovirus+Enterovirus RNA JACQUELINE+non-probe Ql (Nph) Not detected Normal [facility] Comment on above: Performed By: #### 1 [id number] #### [facility] [address] [place] [address] RSV RNA JACQUELINE+non-probe Ql (Nph) Not detected Normal [facility] Comment on above: Performed By: #### 1 [id number] #### [facility] [address] [place] [address] Retic Counton 05-06-2024 Reticulocytes/100 RBC (Bld) 1.7 % Normal 0.5-2.2 [facility] Comment on above: Performed By: #### 2 [id number] #### [facility] [address] [place] [address] TIBC Calculatedon 05-06-2024 Iron binding capacity [Mass/Vol] 197 microgram/dL Low 250-400 [facility] Comment on above: Performed By: #### 1 [id number] #### [facility] [address] [place] [address] Transferrin [Mass/Vol] 141 mg/dL Low 200-370 [facility] Comment on above: Performed By: #### 1 [id number] #### [facility] [address] [place] [address] TSH With T4fr Reflexon 05-06 TSH Qn 3.01 m[IU]/L Normal 0.34-5.60 [facility] Comment on above: Performed By: #### 1 [id number] #### [facility] [address] [place] [address] Troponin 0 Hr.on 05-06-2024 Troponin HS 36.70 pg/mL Normal 15.90-38.40 [facility] Comment on above: Result Comment: The 95% CI (Confidence Interval) PPV (Positive Predictive Value) for myocardial infarction in females is 38 pg/mL, in males 51 pg/mL. The results should be used in conjunction with clinical conditions of myocardial infarction. (Access High Sensitivity Troponin I Instructions For Use, [employer], November 2017) Performed By: #### 1 [id number] #### [facility] [address] [place] [address] Troponin 1 Hr.on 05-06-2024 Troponin HS 31.10 pg/mL Normal 15.90-38.40 [facility] Comment on above: Result Comment: The 95% CI (Confidence Interval) PPV (Positive Predictive Value) for myocardial infarction in females is 38 pg/mL, in males 51 pg/mL. The results should be used in conjunction with clinical conditions of myocardial infarction. ([employer] High Sensitivity Troponin I Instructions For Use, [employer], November 2017) Performed By: #### 1 [id number] #### [facility] [address] [place] [address] UA with Cult Rflxon 05-06-19 25 Type of Urine collection method Clean Catch Normal [facility] Comment on above: Performed By: #### 4 [id number] #### [facility] [address] [place] [address] Vit B12on 05-06-2024 Cobalamin (Vitamin B12) [Mass/Vol] 694 pg/mL Normal 50-1500 [facility] Comment on above: Performed By: #### 2 [id number] #### [facility] [address] [place] [address] XR Chest Single Viewon 05-06 XR Chest Single View Exam Date/Time: 05/06/2024 19:34 EST Reason for Exam: Shortness of breath (SOB) Report IMPRESSION: PREDOMINANTLY RIGHT MID AND LEFT LOWER LUNG ZONE OPACITIES PROBABLY NOT SIGNIFICANTLY CHANGED FROM EARLIER 05/06/2024. EXAM: XR Chest Single View DATE: 05/06/2024 7:10 PM CLINICAL HISTORY: Shortness of breath (SOB). COMPARISON: Portable chest and chest CTA from earlier on 01/05/2025. TECHNIQUE: A portable upright AP radiograph of the chest was obtained at approximately 7:00 PM. FINDINGS: Mild to moderate airspace opacities predominantly within the right midlung and left lower lung zones have probably have not significantly changed since earlier 05/06/2024, suspicious for bronchopneumonia. There is no cardiomegaly, vascular congestion, sizable pleural effusion, pneumothorax, or displaced fractures identified. Ordering Provider: Pan Gar FINAL REPORT Dictated: 05/06/2024 8:07 pm Jeramy Acosta MD Signed (Electronic Signature): 05/06/2024 8:07 pm Signed by: Jeramy Acosta MD Transcribed by: BRIAN Technologist: CANDIDO Technical Comments Radiation Dose: Ka,r in mGy = na DAP = na Normal [facility] XR Chest Single View Exam Date/Time: 05/06/2024 11:28 EST Reason for Exam: Shortness of breath (SOB) Report IMPRESSION: NO ACUTE CARDIOPULMONARY DISEASE. CLINICAL HISTORY: Shortness of breath (SOB) COMPARISON: NONE. FINDINGS: Pacemaker generator overlies left mid chest, tips of pacemaker wires overlie right atrium and right ventricle. Osseous structures intact. Cardiopericardial silhouette normal. Pulmonary vasculature normal. Lungs clear. Ordering Provider: Rima Anthony FINAL REPORT Dictated: 05/06/2024 11:52 am Christos Valencia MD Signed (Electronic Signature): 05/06/2024 11:52 am Signed by: Christos Valencia MD Transcribed by: BRIAN Technologist: GENARO Technical Comments Radiation Dose: Ka,r in mGy = na DAP = na Normal [facility] eGFRon 05-06-2024 eGFR 47 mL/min/1.73 m2 Low >=59 [facility] Comment on above: Performed By: #### 1 [id number] #### [facility] [address] [place] [address] Ambulatory Visit Summaryon 0 05-01-2024 Ambulatory Visit Summary Ambulatory Visit Summary DANNYLINDSAYBENNIE Jaky :1945 Visit Date:05/01/2024 Ambulatory Visit Instructions Your Diagnosis Weakness Ulcerative colitis Primary biliary cholangitis Pancreatic insufficiency Leg swelling Your Care Team Attending Physician - Debra STEWART, Eloisa Cheung Primary Care Physician - Pete Gar MD This Is Your Medications List Contact prescribing physician if questions or concerns Misc Prescription aspirin (aspirin 81 mg Oral EC Tab) atorvastatin (atorvastatin 80 mg Tab) carvedilol (carvedilol 12.5 mg Tab) cholecalciferol (Vitamin D3 1000 intl units (25 mcg) Tab) multivitamin (One-A-Day Men's Health Formula) multivitamin with minerals (ICaps AREDS 2) omeprazole (omeprazole 40 mg Cap-DR) pancrelipase (Creon 36,000 units oral delayed release capsule) sacubitril-valsartan (Entresto 24 mg-26 mg oral tablet) spironolactone (spironolactone 25 mg Tab) ursodiol (ursodiol 500 mg Tab) ustekinumab (Stelara) warfarin (warfarin 4 mg Tab) Procedures Performed Esophagogastroduodenos copy (03/28/2024), Flexible sigmoidoscopy (03/28/2024), Cardiac catheter, Carotid endarterectomy, Colonoscopy. Discharge Vitals Heart Rate (Peripheral) 76 Blood Pressure 111/74 Height 172 cm Height 68 in Weight 62.6 kg Weight 138.009 lb BMI 21.16 What to do next Scheduled Follow-Up Appointments 2024 2:00 PM EST With: Where: [facility] 2024 9:15 AM EDT With: Debra STEWART, Eloisa Cheung Where: [facility] [address] [place] [address]- 2024 10:00 AM EDT With: Pete Gar MD Where: [address] [address]- Tuesday 11:00 AM EDT With: Where: [address] [address]- Medications What How Much When Instructions Unchanged aspirin (aspirin 81 mg Oral EC Tab) 1 Tablets By Mouth Every day Contact prescribing physician if questions or concerns Unchanged atorvastatin (atorvastatin 80 mg Tab) See instructions TAKE 1 TABLET DAILY Contact prescribing physician if questions or concerns Unchanged carvedilol (carvedilol 12.5 mg Tab) 1 Tablets By Mouth 2 times a day Contact prescribing physician if questions or concerns Unchanged cholecalciferol (Vitamin D3 1000 intl units (25 mcg) Tab) 1 Tablets By Mouth Every day Contact prescribing physician if questions or concerns Unchanged Misc Prescription 0 Mini fish oil 1340mg one a day Contact prescribing physician if questions or concerns Unchanged multivitamin (One-A-Day Men's Health Formula) 1 Tablets By Mouth Every day Contact prescribing physician if questions or concerns Unchanged multivitamin with minerals (ICaps AREDS 2) See instructions take 1 orally twice a da Contact prescribing physician if questions or concerns Unchanged omeprazole (omeprazole 40 mg Cap-DR) 1 Capsules By Mouth Every day Contact prescribing physician if questions or concerns Unchanged pancrelipase (Creon 36,000 units oral delayed release capsule) See instructions 1 cap with meals and 1 with each snack. contents of capsule may be mixed with soft foods such as applesauce Contact prescribing physician if questions or concerns Unchanged sacubitril-valsartan (Entresto 24 mg-26 mg oral tablet) 1 Tablets By Mouth 2 times a day Contact prescribing physician if questions or concerns Unchanged spironolactone (spironolactone 25 mg Tab) See instructions 1/ 2 tablet orally daily Contact prescribing physician if questions or concerns Unchanged ursodiol (ursodiol 500 mg Tab) 1 Tablets By Mouth 2 times a day with food Contact prescribing physician if questions or concerns Unchanged ustekinumab (Stelara) Contact prescribing physician if questions or concerns Unchanged warfarin (warfarin 4 mg Tab) See instructions Take 4 mg orally on mondays, wednesdays and fridays and 8mg the other 4 days of the week Contact prescribing physician if questions or concerns Allergies No Known Medication Allergies Problems Ongoing - Any problem that you are currently receiving treatment for. Adhesive capsulitis of shoulder ASCVD (arteriosclerotic cardiovascular disease) Blood in stool BMI 22.0-22.9, adult Chronic anticoagulation DDD (degenerative disc disease), lumbar Elevated liver enzymes Esophageal dysphagia Hemiparesis Hx of arterial ischemic stroke Hx of heart artery stent Leg swelling Loose stools Nonsmoker Pancreatic insufficiency Paroxysmal A-fib Primary biliary cholangitis Prostate disorder Ulcerative colitis Weakness Patient Survey You may receive a survey via text or e-mail asking about your office visit. Please share your experience with us by completing your survey. We apprecia (more content not included)... Normal [facility] Gastroenterology Office/Clin ic Noteon 05-01-2024 Gastroenterology Office/Clinic Note Gastroenterology Office/Clinic Note Chief Complaint Weakness, edema and dizziness. HPI Staff Patient is a(n) 78 year old male who presents today for a sick call with c/o weakness after starting Mely. Mely prescribed for PBC. Feeling weak since starting medication Patient also c/o bilateral feet and ankles swelling and dizziness. Stelara started for UC recently. How are bowels moving? Normal Any blood in stools? No Creon started for pancreatic insufficiency. Any issues with it? Taking aspirin 81mg and warfarin Denies GLP-1 agonists. Last visit w/Dr. Hassan: Assessment/Plan 1. Ulcerative colitis (K51.90: Ulcerative colitis, unspecified, without complications) 2. Esophageal dysphagia (R13.19: Other dysphagia) 3. Loose stools (R19.5: Other fecal abnormalities) 4. Blood in stool (K92.1: Melena) 5. Elevated liver enzymes (R74.8: Abnormal levels of other serum enzymes) Orders: omeprazole, 40 mg = 1 cap(s), Oral, Daily, # 90 cap(s), Refills(s) 3, [facility] Awaiting blood work to start outpatient on Stelara Will bring back after 8 to 12 weeks to assess and discuss maintenance EGD w/ Dr Hassan 03/28/24 Findings 1. Small hiatal hernia. Mild Schatzki ring was noted at the GE junction. Dilation was performed using TTS balloon 18-19-20 mm, dilation was perfumed to 20 mm with moderate resistance. Minimal mucosal disruption was noted post dilation. No wall defect was seen afterwards. Biopsies obtained to disrupt the ring further and to obtain more samples from mid and lower esophagus 2. Patchy erythema with scattered erosions consistent with erosive gastropathy status post biopsies 3. Normal duodenum. Impression and Plan hiatal hernia Schatzki's ring Erosive gastropathy Colonoscopy w/ Dr Hassan 03/28/24 Findings Colitis changes noted in left colon compatible with previous history of ulcerative colitis Godinez score 2 with moderate disease with marked erythema, absent vascular pattern, friability, erosions Random biopsies were taken to rule out CMV. Diverticulosis and large internal hemorrhoids Impression and Plan active left-sided colitis (Godinez 2) Diverticulosis Internal hemorrhoids Pathology: Final Diagnosis (Verified) A: STOMACH, BIOPSY: ??? ANTRAL MUCOSA WITH MODERATE CHRONIC ACTIVE GASTRITIS. ??? NO GRANULOMA OR DYSPLASIA IDENTIFIED. ??? NO H. PYLORI MICROORGANISMS IDENTIFIED WITH IMMUNOSTAIN. B: ESOPHAGUS, BIOPSY: ??? ESOPHAGEAL SQUAMOUS MUCOSA WITHIN NORMAL LIMITS. ??? NO INTESTINAL METAPLASIA OR GLANDULAR EPITHELIUM. C: LEFT COLON, BIOPSY: ??? CHRONIC ACTIVE COLITIS WITH EROSION. ??? NO GRANULOMA OR DYSPLASIA. Laboratory Results CBC CMP Basophil Absolute: 0.1 E9/L (03/28/24) A/G Ratio: 1.1 (03/28/24) Basophil Auto: 0.6 % (03/28/24) AGAP: 9 mEq/L (03/28/24) Eos Absolute: 0.2 E9/L (03/28/24) Albumin Lvl: 3.5 gm/dL (03/28/24) Eos Auto: 2.1 % (03/28/24) Alk Phos: 108 Int._Unit/L High (03/28/24) Hct: 32.8 % Low (03/28/24) ALT: 18 Int._Unit/L (03/28/24) HGB: 11.1 gm/dL Low (03/28/24) AST: 24 Int._Unit/L (03/28/24) Lymph Absolute: 1.6 E9/L (03/28/24) Bili Total: 0.6 mg/dL (03/28/24) Lymph Auto: 16.1 % (03/28/24) BUN: 25 mg/dL High (03/28/24) MCH: 31.4 pg (03/28/24) BUN/Creat Ratio: 25 High (03/28/24) MCHC: 33.7 gm/dL (03/28/24) Calcium Lvl: 8.9 mg/dL (03/28/24) MCV: 93.2 fL (03/28/24) Chloride: 103 mmol/L (03/28/24) Will Absolute: 0.8 E9/L (03/28/24) CO2: 29 mmol/L (03/28/24) Will Auto: 7.6 % (03/28/24) Creatinine: 1 mg/dL (03/28/24) MPV: 7.8 fL (03/28/24) Globulin: 3.2 gm/dL (03/28/24) Neutro Absolute: 7.3 E9/L (03/28/24) Glucose Lvl: 92 mg/dL (03/28/24) Neutro Auto: 73.6 % (03/28/24) Potassium Lvl: 4.3 mmol/L (03/28/24) Platelet: 277 E9/L (03/28/24) Sodium Lvl: 137 mmol/L (03/28/24) RBC: 3.5 E12/L Low (03/28/24) Total Protein: 6.7 gm/dL (03/28/24) RDW: 13.2 % (03/28/24) WBC: 9.9 E9/L (03/28/24) Liver Studies AMA Ab Scr: 24.2 High (04/02/24) MASSIMO Direct: Negative (04/02/24) Ferritin Lvl: 128 ng/mL (04/02/24) HCV Ab: Non Reactive (04/02/24) Hep A Ab: Positive Abnormal (04/02/24) Hep A IgM: Negative (04/02/24) Hep B Core IgM: Negative (04/02/24) Hep Bs Ag: Negative (04/02/24) SMA Scr: 56 High (04/02/24) TIBC: 244 mcg/dL Low (04/02/24) Vit D: 105.2 High (04/02/24) Transferrin: 174 Low (04/02/24) Pancreatic Elastase: 42 Low (04/02/24) History of Present Illness I have reviewed HPI staff note, most recent labs and imaging, I agree with the above documentation with the following additions/exceptions : pt feels weak and developed dizziness and ankle swelling after starting mely bowel movements are better with no diarrhea getting Stelara this Patient gained 10 to 15 pounds since he was started on treatment Review of Systems PHQ Score Initial Depression Screen Score: 0 SCORE All systems reviewed, negative except as mentioned above Physical Exam Vitals & Measurement (more content not included)... Normal [facility] Comment on above: Result Comment: Elec tronically Signed By: Debra STEWART, Eloisa Purdy.dana\Date and Time Signed: 05/01/24 11:04 EST Pancreatic Elastase, Fecalon 04-09-2024 Elastase.pancreatic (Stl) [Mass/Mass] 42 Low >200 [facility] Comment on above: Result Comment: Stoo l of watery consistency received. Since watery stool is inherently dilute, low test results should be interpreted with caution. Retesting on formed stool, if possible, is recommended. Severe Pancreatic Insufficiency: <100 Moderate Pancreatic Insufficiency: 100 - 200 Normal: >200 Performed at: [facility] [address] [place], [place] [id number] MD Anthony Gallagher Performed By: #### 1 [id number] #### [facility] [address] [place] [address] .Interpretation:on HCV Ab IA Ql Comment Invalid Interpretation Code [facility] Comment on above: Result Comment: Not infected with HCV unless early or acute infection is suspected (which may be delayed in an immunocompromised individual), or other evidence exists to indicate HCV infection. Performed at: [address] [id number] PhD Brandyn Madera Performed By: #### 2 [id number] #### [facility] [address] [place] [address] AMA Ab Scron 04-05-2024 Mitochondria M2 IgG Qn (S) 24.2 unit(s) High 0.0-20.0 [facility] Comment on above: Result Comment: Nega tive 0.0 - 20.0 Equivocal 20.1 - 24.9 Positive >24.9 Mitochondrial (M2) Antibodies are found in 90-96% of patients with primary biliary cirrhosis. Performed at: [address] [id number] PhD Brandyn Madera Performed By: #### 1 [id number] #### [facility] [address] [place] [address] MASSIMO w/Reflex if POSon 2023 Nuclear Ab Ql (S) Negative Invalid Interpretation Code Negative [facility] Comment on above: Result Comment: Perf ormed at: [facility] [address] [place], [place] [id number] PhD Brandyn Madera Performed By: #### 1 [id number] #### [facility] [address] [place] [address] Acute Hepatitis A B C Panelo n 04-05-2024 HAV IgM IA Ql Negative Invalid Interpretation Code Negative [facility] Comment on above: Result Comment: A ne gative anti-HAV IgM result suggests no recent or current HAV infection. Performed By: #### 3 [id number] #### [facility] [address] [place] [address] HBV core IgM IA Ql Negative Invalid Interpretation Code Negative [facility] Comment on above: Performed By: #### 3 [id number] #### [facility] [address] [place] [address] HBV surface Ag IA Ql Negative Invalid Interpretation Code Negative [facility] Comment on above: Performed By: #### 3 [id number] #### [facility] [address] [place] [address] HCV IgG IA Ql Non-Reactive Invalid Interpretation Code Non Reactive [facility] Comment on above: Result Comment: Perf ormed at: [address] [id number] PhD Brandyn Madera Performed By: #### 3 [id number] #### [facility] [address] [place] [address] Celiac Disease Comprehensive on 04-05-2024 Endomysium IgA Ql (S) Negative Invalid Interpretation Code Negative [facility] Comment on above: Performed By: #### 1 [id number] #### [facility] [address] [place] [address] Gliadin peptide IgA Qn (S) 4 unit(s) Invalid Interpretation Code 0-19 [facility] Comment on above: Result Comment: Nega tive 0 - 19 Weak Positive 20 - 30 Moderate to Strong Positive >30 Performed By: #### 1 [id number] #### [facility] [address] [place] [address] Gliadin peptide IgG Qn (S) 2 unit(s) Invalid Interpretation Code 0-19 [facility] Comment on above: Result Comment: Nega tive 0 - 19 Weak Positive 20 - 30 Moderate to Strong Positive >30 Performed By: #### 1 [id number] #### [facility] [address] [place] [address] IgA [Mass/Vol] 228 mg/dL Invalid Interpretation Code 61-437 [facility] Comment on above: Result Comment: Perf ormed at: [facility] [address] [id number] PhD Brandyn Madera Performed By: #### 1 [id number] #### [facility] [address] [place] [address] tTG IgA Qn (S) <2 Invalid Interpretation Code 0-3 [facility] Comment on above: Result Comment: Nega tive 0 - 3 Weak Positive 4 - 10 Positive >10 Tissue Transglutaminase (tTG) has been identified as the endomysial antigen. Studies have demonstr- ated that endomysial IgA antibodies have over 99% specificity for gluten sensitive enteropathy. Performed By: #### 1 [id number] #### [facility] [address] [place] [address] tTG IgG Qn (S) <2 Invalid Interpretation Code 0-5 [facility] Comment on above: Result Comment: Nega tive 0 - 5 Weak Positive 6 - 9 Positive >9 Performed By: #### 1 [id number] #### [facility] [address] [place] [address] Hepatitis A Virus (HAV) Anti body, Totalon 04-05-2024 HAV Ab IA Ql (S) Positive Abnormal Negative [facility] Comment on above: Result Comment: Comm ent: The HAV total antibody assay detects both IgG and IgM but does not differentiate between them. A negative result suggests susceptibility to infection. A positive result could be due to vaccination, previously resolved infection or active infection. Testing for HAV IgM should be performed if active HAV infection is suspected. [facility] offers profiles that will automatically reflex positive HAV total antibody results to IgM (e.g., panel #[id number] HAV Antibody w/ Rfx). Performed at: [facility] [address] [place], [place] [id number] PhD Brandyn Madera Performed By: #### 1 [id number] #### [facility] [address] [place] [address] IgG, Quant.on 04-05-2024 IgG [Mass/Vol] 1258 mg/dL Invalid Interpretation Code [id number] [facility] Comment on above: Result Comment: Perf ormed at: [facility] [address], [place] [id number] PhD Brandyn Madera Performed By: #### 1 [id number] #### [facility] [address] [place] [id number] Quantiferon-TB Plus (Client Incubated)on 04-05-2024 Gamma interferon background IA Qn (Bld) 0.04 International_Unit/mL Invalid Interpretation Code [facility] Comment on above: Performed By: #### 1 [id number] #### [facility] [address] [place] [address] M. tuberculosis stim IFN-g by CD4+ CD8+ T-cells corrected for background Qn (Bld) 0.05 International_Unit/mL Invalid Interpretation Code [facility] Comment on above: Performed By: #### 1 [id number] #### [facility] [address] [place] [address] M. tuberculosis stim IFN-g by CD4+ T-cells corrected for background Qn (Bld) 0.04 International_Unit/mL Invalid Interpretation Code [facility] Comment on above: Performed By: #### 1 [id number] #### [facility] [address] [place] [id number] M. tuberculosis stim IFN-g Ql (Bld) [Interp] Negative Invalid Interpretation Code Negative [facility] Comment on above: Result Comment: No r esponse to M tuberculosis antigens detected. Infection with M tuberculosis is unlikely, but high risk individuals should be considered for additional testing (ATS/IDSA/CDC Clinical Practice Guidelines, 2017). The reference range is an Antigen minus Nil result of <0.35 IU/mL. The specimen received for QuantiFERON testing was incubated by the ordering institution. Specific procedures outlined in our Directory of Services and in the package insert for the QuantiFERON Gold (In Tube) test must be followed to enable for proper stimulation of cells for the production of interferon gamma. Chemiluminescence immunoassay methodology Performed at: [facility] [address] [id number] PhD Brandyn Madera Performed By: #### 1 [id number] #### [facility] [address] [place] [address] Mitogen stimulated gamma interferon corrected for background Qn (Bld) >10.00 Invalid Interpretation Code [facility] Comment on above: Performed By: #### 1 [id number] #### [facility] [address] [place] [address] Service comment (Unsp spec) [Interp] Comment Invalid Interpretation Code [facility] Comment on above: Result Comment: Sridhar tiFERON-TB Gold Plus is a qualitative indirect test for M tuberculosis infection (including disease) and is intended for use in conjunction with risk assessment, radiography, and other medical and diagnostic evaluations. The QuantiFERON-TB Gold Plus result is determined by subtracting the Nil value from either TB antigen (Ag) value. The Mitogen tube serves as a control for the test. Performed By: #### 1 [id number] #### [facility] [address] [place] [address] Smooth Muscle Abon 4 Actin smooth muscle IgG Qn (S) 56 unit(s) High 0-19 [facility] Comment on above: Result Comment: Nega tive 0 - 19 Weak positive 20 - 30 Moderate to strong positive >30 Actin Antibodies are found in 52-85% of patients with autoimmune hepatitis or chronic active hepatitis and in 22% of patients with primary biliary cirrhosis. Performed at: [facility] [address] [id number] PhD Brandyn Madera Performed By: #### 1 [id number] #### [facility] [address] [place] [address] CHEMISTRYOrdered By: SYSTEM SYSTEM on 04-02-2024 25-hydroxyvitamin D3 [Mass/Vol] 105.2 ng/mL High 30.0 - 100.0 ng/mL Remisol Chem Ferritin [Mass/Vol] 128 ng/mL Normal 24 - 336 ng/mL R emisol Chem Iron binding capacity [Mass/Vol] 244 ug/dL Low 250 - 400 mcg/dL Remisol Chem Transferrin [Mass/Vol] 174 mg/dL Low 200 - 370 mg/ dL Remisol Chem Ferritinon 04-02-2024 Ferritin [Mass/Vol] 128 ng/mL Normal 24-336 [facility] Comment on above: Performed By: #### 2 [id number] #### [facility] [address] [place] [address] Gastroenterology Office/Clin ic Noteon 04-02-2024 Gastroenterology Office/Clinic Note Gastroenterology Office/Clinic Note Chief Complaint follow up to egd/colon HPI Staff EST, 78 year old male who presents today for a follow up to EGD and Colonoscopy. -Labs not completed -Started omeprazole 40mg daily on warfarin Last office visit w/ Dr Hassan History of Present Illness Pt on mesalamine for UC, stopped since it is bothering him diagnosed about 1 year ago on it x 1 month 4-5 loose BMs with blood in it ( blood comes and goes) some mucous in thew stool pt with some dysphagia - no EGD last colonoscopy 1 year ago Abd cramping Assessment/Plan 1. Ulcerative colitis (K51.90: Ulcerative colitis, unspecified, without complications) 2. Esophageal dysphagia (R13.19: Other dysphagia) 3. Chronic anticoagulation (Z79.01: retirement (current) use of anticoagulants) 4. Loose stools (R19.5: Other fecal abnormalities) 5. Blood in stool (K92.1: Melena) 6. Elevated liver enzymes (R74.8: Abnormal levels of other serum enzymes) Patient did not respond to mesalamine and balsalazide and last colonoscopy was in June 2022 Repeat sigmoidoscopy to obtain biopsies and assess colitis Schedule EGD to evaluate esophageal dysphagia Check CRP, stool calprotectin, stool cultures, ova and parasites, C. difficile, pancreatic elastase, and celiac panel Check hepatitis panel, autoimmune panel, AMA, and iron studies Check vitamin D levels Determine about next step in treatment. Patient might benefit from mesalamine enemas, Stelara, or Zeposia EGD w/ Dr Hassan 03/28/24 Findings 1. Small hiatal hernia. Mild Schatzki ring was noted at the GE junction. Dilation was performed using TTS balloon 18-19-20 mm, dilation was perfumed to 20 mm with moderate resistance. Minimal mucosal disruption was noted post dilation. No wall defect was seen afterwards. Biopsies obtained to disrupt the ring further and to obtain more samples from mid and lower esophagus 2. Patchy erythema with scattered erosions consistent with erosive gastropathy status post biopsies 3. Normal duodenum. Impression and Plan hiatal hernia Schatzki's ring Erosive gastropathy Colonoscopy w/ Dr Hassan 03/28/24 Findings Colitis changes noted in left colon compatible with previous history of ulcerative colitis Godinez score 2 with moderate disease with marked erythema, absent vascular pattern, friability, erosions Random biopsies were taken to rule out CMV. Diverticulosis and large internal hemorrhoids Impression and Plan active left-sided colitis (Godinez 2) Diverticulosis Internal hemorrhoids Final Diagnosis (Verified) A: STOMACH, BIOPSY: ??? ANTRAL MUCOSA WITH MODERATE CHRONIC ACTIVE GASTRITIS. ??? NO GRANULOMA OR DYSPLASIA IDENTIFIED. ??? NO H. PYLORI MICROORGANISMS IDENTIFIED WITH IMMUNOSTAIN. B: ESOPHAGUS, BIOPSY: ??? ESOPHAGEAL SQUAMOUS MUCOSA WITHIN NORMAL LIMITS. ??? NO INTESTINAL METAPLASIA OR GLANDULAR EPITHELIUM. C: LEFT COLON, BIOPSY: ??? CHRONIC ACTIVE COLITIS WITH EROSION. ??? NO GRANULOMA OR DYSPLASIA. Laboratory Results CBC CMP Basophil Absolute: 0.1 E9/L (03/28/24) A/G Ratio: 1.1 (03/28/24) Basophil Auto: 0.6 % (03/28/24) AGAP: 9 mEq/L (03/28/24) Eos Absolute: 0.2 E9/L (03/28/24) Albumin Lvl: 3.5 gm/dL (03/28/24) Eos Auto: 2.1 % (03/28/24) Alk Phos: 108 Int._Unit/L High (03/28/24) Hct: 32.8 % Low (03/28/24) ALT: 18 Int._Unit/L (03/28/24) HGB: 11.1 gm/dL Low (03/28/24) AST: 24 Int._Unit/L (03/28/24) Lymph Absolute: 1.6 E9/L (03/28/24) Bili Total: 0.6 mg/dL (03/28/24) Lymph Auto: 16.1 % (03/28/24) BUN: 25 mg/dL High (03/28/24) MCH: 31.4 pg (03/28/24) BUN/Creat Ratio: 25 High (03/28/24) MCHC: 33.7 gm/dL (03/28/24) Calcium Lvl: 8.9 mg/dL (03/28/24) MCV: 93.2 fL (03/28/24) Chloride: 103 mmol/L (03/28/24) Will Absolute: 0.8 E9/L (03/28/24) CO2: 29 mmol/L (03/28/24) Will Auto: 7.6 % (03/28/24) Creatinine: 1 mg/dL (03/28/24) MPV: 7.8 fL (03/28/24) Globulin: 3.2 gm/dL (03/28/24) Neutro Absolute: 7.3 E9/L (03/28/24) Glucose Lvl: 92 mg/dL (03/28/24) Neutro Auto: 73.6 % (03/28/24) Potassium Lvl: 4.3 mmol/L (03/28/24) Platelet: 277 E9/L (03/28/24) Sodium Lvl: 137 mmol/L (03/28/24) RBC: 3.5 E12/L Low (03/28/24) Total Protein: 6.7 gm/dL (03/28/24) RDW: 13.2 % (03/28/24) WBC: 9.9 E9/L (03/28/24) History of Present Illness I have reviewed HPI staff note, most recent labs and imaging, I agree with the above documentation with the following additions/exceptions : PT still with abd pain, loose stool, and blood in stool more than 5-6 times a day not on mesalamine Review of Systems All systems reviewed, negative except as mentioned above Physical Exam Vitals & Measurements HR: 67(Peripheral) RR: 16 BP: 95/63 HT: 68 in HT: 172 cm WT: 57 kg WT: 125.663 lb BMI: 19.27 General: alert, no acute distress HEENT: atraumatic normocephalic Cardiovascular: regular rate and rhythm, normal peripheral perfusion Respiratory: Lungs CTA, respirations non labored Ext (more content not included)... Normal [facility] Comment on above: Result Comment: Elec tronically Signed By: Debra STEWART, Eloisa Cheung\.br\Date and Time Signed: 04/02/24 14:04 EST Surgical Pathology Reporton 04-02-2024 Surgical Pathology Report [facility] [address] [place] [address]- Surgical Pathology Report Collected Date/Time: 03/28/2024 09:38 EST Pathologist: Shaun STEWART PhD, Kj Martins Received Date/Time: 03/28/2024 10:47 EST Debra STEWART, Eloisa Hassan MD, Eloisa Brito Surgical Pathology Report - 04/02/2024 09:49 EST - Auth (Verified) Final Diagnosis A: STOMACH, BIOPSY: - ANTRAL MUCOSA WITH MODERATE CHRONIC ACTIVE GASTRITIS. - NO GRANULOMA OR DYSPLASIA IDENTIFIED. - NO H. PYLORI MICROORGANISMS IDENTIFIED WITH IMMUNOSTAIN. B: ESOPHAGUS, BIOPSY: - ESOPHAGEAL SQUAMOUS MUCOSA WITHIN NORMAL LIMITS. - NO INTESTINAL METAPLASIA OR GLANDULAR EPITHELIUM. C: LEFT COLON, BIOPSY: - CHRONIC ACTIVE COLITIS WITH EROSION. - NO GRANULOMA OR DYSPLASIA. (Electronic Signature) Kj Dunn MD PhD 04/02/2024 09:49 Clinical Information Dysphagia, ulcerative colitis Pre-Op Diagnosis: Dysphagia, ulcerative colitis Procedure: EGD, colonoscopy Post-Op Diagnosis: 1. Hiatal hernia 2. Schatzki's ring 3. Erosive gastropathy 4. Active left-sided colitis (Godinez 2) 5. Diverticulosis 6. Internal hemorrhoids Specimen(s) Received A.Gastric biopsy B.Esophageal biopsy C.Left colon biopsy Gross Description A: Received in formalin labeled with patient name, number, and gastric biopsy are four fragments of de leon soft tissue measuring 0.1 to 0.2 cm in diameter. Entire specimen submitted in one cassette. B: Received in formalin labeled with patient name, number, and esophageal biopsy are four fragments of de leon soft tissue measuring 0.1 to 0.2 cm in greatest dimension. Entire specimen submitted in one cassette. C: Received in formalin labeled with patient name, number, and left colon biopsy are multiple fragments of de leon/pink soft tissue measuring 0.1 to 0.2 cm in greatest dimension. Entire specimen submitted in one cassette. () [facility] Microscopic Description Microscopic examination performed unless gross only specified. Surgical Pathology Report Collected Date/Time: 03/28/2024 09:38 EST Pathologist: Shaun STEWART PhD, Kj Martins Received Date/Time: 03/28/2024 10:47 EST Debra STEWART, Eloisa Hassan MD, Eloisa Cheung Microscopic Description The use of one or more reagents in the above tests is regulated as an analyte specific reagent (ASR). The test or tests are ordered following initial H&E microscopic examination. The performance characteristics were determined by the [facility]. They have not been cleared or approved by the [place] Food and Drug Administration. The FDA has determined that such clearance or approval is not necessary. These tests are used for clinical purposes. They should not be regarded as investigational or for research. Appropriate positive and negative controls are performed and are acceptable. Normal [facility] Comment on above: Performed By: #### 4 [id number] #### [facility] [address] [place] [address] TIBC Calculatedon 04-02-2024 Iron binding capacity [Mass/Vol] 244 microgram/dL Low 250-400 [facility] Comment on above: Performed By: #### 1 [id number] #### [facility] [address] [place] [address] Transferrin [Mass/Vol] 174 mg/dL Low 200-370 [facility] Comment on above: Performed By: #### 1 [id number] #### [facility] [address] [place] [address] Vitamin D 25 Hydroxyon 04-02 25-hydroxyvitamin D3 [Mass/Vol] 105.2 ng/mL High 30.0-100.0 [facility] Comment on above: Performed By: #### 5 [id number] #### [facility] [address] [place] [address] ED Clinical Summaryon 2023 ED Clinical Summary ED Clinical Summary [address] [address] ED Clinical Summary Person Information Name: BENNIE DENNIS [place] Age: 78 Years : 1945 Sex: Male Language: Citizen Of [place] PCP: Pete Gar MD Marital Status: Visit Id: Visit Reason: Medical problem - minor; POSS DEHYRATION Speciality: Acuity: 3 Enc Type: Emergency Med Service: Emergency Arrival: 03/29/2024 14:24:57 Discharge: 03/29/2024 15:53:28 LOS: 000 01:29 Checkin: 03/29/2024 14:24:57 Checkout: 03/29/2024 15:53:28 Dispo Type: Home (Routine DC) EVENTS: Event Name Event Status Request Date/Time Start Date/Time Complete Date/Time Arrive Complete 03/29/2024 14:24:57 03/29/2024 14:24:57 03/29/2024 14:24:57 Document Home Meds Request 03/29/2024 14:24:57 Triage Complete 03/29/2024 14:24:57 03/29/2024 14:33:10 03/29/2024 14:33:10 Bed Assign Complete 03/29/2024 14:33:38 03/29/2024 14:33:38 03/29/2024 14:33:38 Dr Exam Complete 03/29/2024 14:33:38 03/29/2024 14:39:40 03/29/2024 14:39:40 RN Exam Complete 03/29/2024 14:33:38 03/29/2024 14:54:39 03/29/2024 14:54:39 Registration Complete 03/29/2024 14:33:53 03/29/2024 14:33:53 03/29/2024 14:33:53 Reg Complete Request 03/29/2024 14:33:53 Reg Bed Request Complete 03/29/2024 14:33:53 03/29/2024 14:33:53 03/29/2024 14:33:53 Registration Request 03/29/2024 14:39:40 Dr Exam Complete 03/29/2024 14:41:29 03/29/2024 14:41:29 03/29/2024 14:41:29 Discharge Complete 03/29/2024 15:39:43 03/29/2024 15:53:33 03/29/2024 15:53:33 Transfer Complete 03/29/2024 15:53:33 03/29/2024 15:53:33 03/29/2024 15:53:33 ADDRESS: [address] [place] [id number] PHYS DOC NOTES: MEDICAL INFORMATION: Prescriptions Given: Medications to Continue with No Changes Other Medications aspirin (aspirin 81 mg Oral EC Tab) 1 Tablets By Mouth every day. atorvastatin (atorvastatin 80 mg Tab) TAKE 1 TABLET DAILY. Refills: 3. carvedilol (carvedilol 12.5 mg Tab) 1 Tablets By Mouth 2 times a day. cholecalciferol (Vitamin D3 1000 intl units (25 mcg) Tab) 1 Tablets By Mouth every day. mesalamine (mesalamine 1.2 g oral enteric coated tablet) 2 Tablets. [facility] Prescription 0. Mini fish oil 1340mg one a day. multivitamin (One-A-Day Men's Health Formula) 1 Tablets By Mouth every day. multivitamin with minerals (ICaps AREDS 2) take 1 orally twice a da. sacubitril-valsartan (Entresto 24 mg-26 mg oral tablet) 1 Tablets By Mouth 2 times a day. spironolactone (spironolactone 25 mg Tab) 1/2 tablet orally daily. warfarin (warfarin 4 mg Tab) Take 4 mg orally on mondays, wednesdays and fridays and 8mg the other 4 days of the week. PATIENT EDUCATION INFORMATION: Instructions: Ulcerative Colitis, Adult Follow up: With: Address: When: Eloisa Roman [address], [address] [place] [phone] Business (1) In 3 days 04/01/2024 Comments: Follow-up with Dr. Hassan on Tuesday as previously scheduled. Return to the ED with any new or worsening symptoms. With: Address: When: Pete Gar In 3 days DIAGNOSIS: Chronic ulcerative colitis; Decreased oral intake Normal [facility] ED Note-Physicianon 03-29-20 ED Note-Physician ED Note-Physician Basic Information Time Seen: Mile KAY, Linda Crow 03/29/2024 14:39 Chief Complaint Pt presents to ED with spouse having concerns for decreased intake. Pt hx of UC-cont symptoms of diarrhea and abd (at baseline). Pt had EGD yesterday. denies any new symptoms History of Present Illness Patient is a 78-year-old male with a history of cardiovascular disease on warfarin, esophageal dysphagia, paroxysmal atrial fibrillation, and ulcerative colitis who presents to the ED with his spouse for concerns of decreased oral intake. Per , the patient has been experiencing a decreased appetite for the past couple of months. Patient notes today he had a couple coffee and a doughnut and felt full. Per , he underwent an EGD yesterday with pocket creaser, Dr. Hassan, and obtained lab work. Per , she states they have not received the results of this lab work yet and she is concerned about the patient's kidneys and liver. Patient denies any history of kidney or liver disease. Patient states he is experiencing abdominal pain and diarrhea that are baseline for him and unchanged from the past couple of months. Patient notes he does experience intermittent dark tarry stool and hematochezia but again this is unchanged and has been present for the past couple of months. Patient denies any new symptoms, including chest pain, fevers, nausea/vomiting, shortness of breath, or changes in urination. Review of Systems A 10 point review of systems is negative except as noted above. Medical and Surgical History: Reviewed and noted Social history: Lives at home Family History: Reviewed. Tobacco: Denies Physical Exam Vitals & Measurements T: 36.4 ???C(Oral) HR: 86(Peripheral) RR: 18 BP: 108/61 SpO2: 95% HT: 172 cm WT: 59.4 kg BMI: 20.08 General: The patient appears well and in no apparent distress. Patient is resting comfortably on cart. Skin: Warm, dry, no pallor noted. Head: Normocephalic, atraumatic Neck: No JVD Eye: PERRLA, EOMI ENT: Moist mucus membranes Cardiovascular: Regular rate normal peripheral perfusion Respiratory: No respiratory distress no accessory muscle use no obvious audible wheezing Chest Wall: no deformity Musculoskeletal: normal ROM, no deformity, no swelling GI: Soft no obvious distention. No rebound or rigidity. No guarding. No abdominal tenderness. 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 Patient is hemodynamically stable and afebrile. Patient has a history of ulcerative colitis and experiences daily abdominal pain and diarrhea, which is unchanged from baseline. He underwent an EGD yesterday with pocket creaser Dr. Hassan. During this time he also received a liter of fluid and obtained blood work. states she is concerned about the patient's kidney and liver function and has not heard back on the lab work. Chart review shows the patient underwent a flexible sigmoidoscopy yesterday showing colitis in the left aspect of the colon compatible with previous history of ulcerative colitis. EGD was also conducted showing a small hiatal hernia, Schatzki's ring, and erosive gastropathy. Lab work from yesterday is reviewed. Hemoglobin is decreased from 13.4 to 11.1 from a lab work 1 month ago, consistent with the patient's lower GI bleed secondary to ulcerative colitis on warfarin. BUN is elevated at 25 however creatinine and GFR are within normal limits. Alk phos is elevated at 108 which is baseline. I discussed lab work with the patient and his . I had an extensive discussion with them at bedside. I offered to repeat lab work today, however and agree that it is not necessary given yesterday's results. I advised the patient drink Pedialyte and boost to aid in nutrition and hydration. Patient is agreeable with this. He has a follow-up appointment scheduled with Dr. Hassan in 4 days. He was advised to return to the ED with any new or worsening symptoms. Patient and are agreeable with the plan and all questions were answered. Assessment/Plan Chronic ulcerative colitis (K51.90: Ulcerative colitis, unspecified, without complications) Decreased oral intake (R63.8: Other symptoms and signs concerning food and fluid intake) Disposition Plan Patient Discharge Condition stable Discharge Disposition home Discharge Prescription List Prescriptions No active prescription medications Follow-up With When Contact Information Eloisa Hassan In 3 days 04/01/2024 EST [address], [address] [place] [address]- [phone] Business (1) Additional Instructions: Follow-up with Dr. Hassan on Tuesday as previously scheduled. Return (more content not included)... Normal [facility] Comment on above: Result Comment: Elec tronically Signed By: Linda Treadwell PA-C\.br\Date and Time Signed: 03/29/24 15:42 EST\.br\Electronically Co-Signed By: Linda Treadwell PA-C\.br\Date and Time Co-Signed: 03/29/24 15:43 EST\.br\Electronically Co-Signed By: Rima Anthony M.D.\.br\Date and Time Co-Signed: 03/29/24 16:53 EST ED Patient Summaryon 024 ED Patient Summary ED Patient Summary [address] [address] Patient Discharge Instructions Person Information Name: LIBORIO DENNISIC Jaky Age: 78 Years Arrival Date: 03/29/2024 14:24:57 Discharge Diagnosis: Chronic ulcerative colitis; Decreased oral intake Primary Care Physician: Pete Gar MD Provider Information Primary Provider: Rima Anthony M.D. Advanced Log Sorting Supervisor:Linda Treadwell PA-C The exam and treatment you received in the Emergency Department were for an urgent problem and are not intended as complete care. It is important that you follow up with a doctor, nurse practitioner, or physician???s accounting administrative assistant for ongoing care. If your symptoms become worse or you do not improve as expected and you are unable to reach your usual health care provider, you should return to the Emergency Department. We are available 24 hours a day. BENNIE DENNIS has been given the following list of patient education materials, prescriptions and follow-up instructions: Follow-up Instructions: With: Address: When: Eloisa Hassan [address], [address] [place] [phone] Business (1) In 3 days 04/01/2024 Comments: Follow-up with Dr. Hassan on Tuesday as previously scheduled. Return to the ED with any new or worsening symptoms. With: Address: When: Pete Gar In 3 days In the event that this physician does not participate in your insurance network, please consult with your insurance company to find a nearby participating provider. Patient Education Materials: Ulcerative Colitis, Adult A MESSAGE TO ALL PATIENTS REGARDING OPIOIDS PRESCRIPTION OPIOIDS: WHAT YOU NEED TO KNOW Prescription opioids can be used to help relieve dydygvwy-ty-qmjjfm pain and are often prescribed following a surgery or injury, or for certain health conditions. These medications can be an important part of the treatment but also come with serious risks. It is important to work with your healthcare provider to make sure you are getting the safest, most effective care. WHAT ARE THE RISKS AND SIDE EFFECTS OF OPIOID USE? Prescription opioids carry serious risks of addiction and overdose, especially with prolonged use. An opioid overdose, often marked by slowed breathing, can cause sudden . The use of prescription opioids can have a number of side effects as well, even when taken as directed: ??? Tolerance???meaning you might need to take more of the medication for the same pain relief ??? Physical dependence???meaning you have symptoms of withdrawal when a medication is stopped ??? Increased sensitivity to pain ??? Constipation ??? Nausea, vomiting, and dry mouth ??? Sleepiness and dizziness ??? Confusion ??? Depression ??? Low levels of testosterone that can result in lower sex drive, energy, and strength ??? Itching and sweating RISKS ARE GREATER WITH: ??? History of drug misuse, substance use disorder, or overdose ??? Mental health conditions (such as depression or anxiety) ??? Sleep apnea ??? Older age (65 years and older) ??? Avoid alcohol while taking prescription opioids. Also, unless specifically advised by your health care provider, medications to avoid include: ??? Benzodiazepines (such as Xanax or Valium) ??? Muscle relaxants (such as Soma or Flexeril) ??? Hypnotics (such as Ambien or Lunesta) ??? Other prescription opioids KNOW YOUR OPTIONS Talk to your health care provider about ways to manage your pain that don???t involve prescription opioids. Some of these options may actually work better and have fewer risks and side effects. Options may include: ??? Pain relievers such as acetaminophen, ibuprofen, and naproxen ??? Some medication that are also used for depression or seizures ??? Physical therapy and exercise ??? Cognitive behavioral therapy, a psychological, goal-directed approach, in which patients learn how to modify physical, behavioral, and emotional triggers of pain and stress. IF YOU ARE PRESCRIBED OPIOIDS FOR PAIN: ??? Never take opioids in greater amounts or more often than prescribed. ??? Follow up with your primary health care provider. o Work together to create a plan on how to manage your pain. o Talk about ways to help manage your pain that don???t involve prescription opioids. o Talk about any and all concerns and side effects. ??? Help prevent misuse and abuse o Never sell or share prescription opioids. o Never use another person???s prescription opioids. ??? Store prescription opioids in a secure place and out of reach of others (this may include visitors, children, friends, and family). ??? Safely dispose of unused prescription opioids: Find your community drug take-back program or your pharmacy mail-back program, or flush them down the toilet, following guidance from the Food and Drug Administration (www (more content not included)... Normal [facility] Main OR Intraoperative Recor don 03-29-2024 Main OR Intraoperative Record Main OR Intraoperative Record IntraOp Document Type FT Summary Primary Physician: Eloisa Hassan MD Finalized Date/Time: 03/29/24 10:08:18 Pt. Name: BENNIE DENNIS D.O.B./Sex: 1945 Male Med Rec #: [id number] Physician: Eloisa Hassan MD Financial #: [id number] Pt. Type: O Room/Bed: / Admit/Disch: 03/28/24 07:50:54 - 03/28/24 23:59:59 Institution: Case Times FT Entry 1 Patient Times In Room 03/28/24 09:34:00 Out Room 03/28/24 09:51:00 Procedure Times Start 03/28/24 09:34:00 Stop 03/28/24 09:47:00 Anesthesia Times Start 03/28/24 09:34:00 Stop 03/28/24 09:51:00 Last Modified By: Andria Bryant CST 03/29/24 10:08:16 General Comments: 941-EGD completed/AW RN 43-Sigmoidoscopy started/AW RN 03/29/24 Chart opened to review and send charges [facility] Case Attendance FT Entry 1 Entry 2 Entry 3 Case Attendee Alie CATALAN, Jyoti Hassan MD, Eloisa Mcmanus RN, Breana Role Performed 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) SIGMOIDOSCOPY(.) Comments help in room Last Modified By: Marietta RN, Breana Mcmanus RN, Breana 03/28/24 09:51:11 03/28/24 09:51:11 Perioperative Protocols FT Pre-Care Text: Implements protective measures prior to operative or invasive procedure, confirms identity before the operative or invasive procedure, verifies operative procedure, surgical site, and laterality Entry 1 Procedure(s) EGD(.), SIGMOIDOSCOPY(.) Patient Identity Birthday, ID Band Verified (select at Check, Patient least 2): Participation Consents / H and P Anesthesia Consent, Operative Site N/A Verified H&P, Surgery/Procedure Marking Verified Consent Surgical Site No Laterality Verified n/a Verified Procedure Verified Yes Correct Patient Yes Position Verified Availability Equipment, Medication Prep Dry n/a Verified (If Applicable) PreOp Antibiotic No Time Out Jyoti Strange CRNA, Given Participants Debra STEWART, Eloisa Cheung, Marietta METCALF, Wilson Toussaint Micala E Time Out Complete 03/28/24 09:34:00 Outcomes Met? Yes Last Modified By: Breana Mcmanus RN 03/28/24 09:40:24 Post-Care Text: The patient is free from signs and symptoms of injury caused by extraneous objects Allergy Information FT Pre-Care Text: Verifies allergies Entry 1 Allergies Reviewed? Yes Allergies Reviewed Self/Patient With Outcomes Met? Yes Last Modified By: Breana Mcmanus RN 03/28/24 09:40:30 Post-Care Text: The patient received appropriate medication(s) safely administered during the perioperative period Surgical Procedures FT Entry 1 Entry 2 Procedure Description Procedure EGD SIGMOIDOSCOPY Modifiers . . Surgeon Description EGD with gastic and EGD with gastic and esophageal biopsy, esophageal biopsy, esophageal dilation esophageal dilation using 18-19-20 balloon. using 18-19-20 balloon. SIGMOIDOSCOPY with SIGMOIDOSCOPY with left colon biopsy left colon biopsy Primary Procedure No Yes Primary Surgeon Eloisa Hassan MD, MD, Mohamad A. Start 03/28/24 09:34:00 03/28/24 09:34:00 Stop 03/28/24 09:47:00 03/28/24 09:47:00 Anesthesia Type General None Surgical Service Gastroenterology Gastroenterology Wound Class 2 - Clean-Contaminated 2 - Clean-Contaminated Last Modified By: Marietta METCALF, Breana Avila RN 03/28/24 09:50:42 03/28/24 09:51:25 General Case Data FT Pre-Care Text: Classifies surgical wound, implements aseptic technique, initiates traffic control Entry 1 Case Information OR ENDO 1 FT Case Level Level 2 Wound Class 2 - Clean-Contaminated Specialty Gastroenterology ASA Class 3 Preop Diagnosis Dysphagia, ulcerative Postop Same As Preop No colitis Postop Diagnosis EGD- erosive Outcomes Met? Yes gastropathy, Schatzki ring, hiatal hernia. Sigmoidoscopy-active left sided colitis, diverticulosis and internal hemorrhoids Last Modified By: Breana Mcmanus RN 03/28/24 10:05:24 Post-Care Text: The patient is free from signs and symptoms of infection Skin Assessment (Pre Procedure) FT Pre-Care Text: Implements protective measures to prevent skin/ tissue injury due to thermal or mechanical sources Evaluates for signs and symptoms of physical injury to skin and tissue Entry 1 Skin Integrity Dry, Warm, Pale Skin Abnormality No Outcomes Met? Yes Last Modified By: Lovely Mcmanus RN (more content not included)... Normal [facility] BMPon 03-28-2024 Anion gap [Moles/Vol] 9 mmol/L Normal 6-16 [facility] Comment on above: Performed By: #### 2 [id number] #### [facility] [address] [place] [address] Calcium [Mass/Vol] 8.9 mg/dL Normal 8.9-11.1 [facility] Comment on above: Performed By: #### 2 [id number] #### [facility] [address] [place] [address] Chloride [Moles/Vol] 103 mmol/L Normal 101-111 [facility] Comment on above: Performed By: #### 2 [id number] #### [facility] [address] [place] [address] CO2 [Moles/Vol] 29 mmol/L Normal 21-31 [facility] Comment on above: Performed By: #### 2 [id number] #### [facility] [address] [place] [address] Creatinine [Mass/Vol] 1.0 mg/dL Normal 0.5-1.3 [facility] Comment on above: Performed By: #### 2 [id number] #### [facility] [address] [place] [address] Glucose [Mass/Vol] 92 mg/dL Normal 55-199 [facility] Comment on above: Performed By: #### 2 [id number] #### [facility] [address] [place] [address] Potassium [Moles/Vol] 4.3 mmol/L Normal 3.5-5.3 [facility] Comment on above: Performed By: #### 2 [id number] #### [facility] [address] [place] [address] Sodium [Moles/Vol] 137 mmol/L Normal 135-145 [facility] Comment on above: Performed By: #### 2 [id number] #### [facility] [address] [place] [address] Urea nitrogen [Mass/Vol] 25 mg/dL High 5-21 [facility] Comment on above: Performed By: #### 2 [id number] #### [facility] [address] [place] [address] Urea nitrogen/Creatinine [Mass ratio] 25 No Units High 10-20 [facility] Comment on above: Performed By: #### 2 [id number] #### [facility] [address] [place] [address] CBC w/ Auto Diffon 4 Basophils/100 WBC (Bld) 0.6 % Normal 0.0-2.0 [facility] Comment on above: Performed By: #### 2 [id number] #### [facility] [address] [place] [address] Basophils/Leukocytes Auto (Bld) [Pure # fraction] 0.1 E9/L Normal 0.0-0.2 [facility] Comment on above: Performed By: #### 2 [id number] #### [facility] [address] [place] [address] Eosinophils (Bld) [#/Vol] 0.2 E9/L Normal 0.0-0.5 [facility] Comment on above: Performed By: #### 2 [id number] #### [facility] [address] [place] [address] Eosinophils/100 WBC (Bld) 2.1 % Normal 0.0-8.0 [facility] Comment on above: Performed By: #### 2 [id number] #### [facility] [address] [place] [address] Erythrocyte distribution width (RBC) [Ratio] 13.2 % Normal 10.9-14.2 [facility] Comment on above: Performed By: #### 2 [id number] #### [facility] [address] [place] [address] Hematocrit (Bld) [Volume fraction] 32.8 % Low 37.7-49.0 [facility] Comment on above: Performed By: #### 2 [id number] #### [facility] [address] [place] [address] Hemoglobin (Bld) [Mass/Vol] 11.1 g/dL Low 13.5-17.5 [facility] Comment on above: Performed By: #### 2 [id number] #### [facility] [address] [place] [address] Lymphocytes (Bld) [#/Vol] 1.6 E9/L Normal 1.0-4.0 [facility] Comment on above: Performed By: #### 2 [id number] #### [facility] [address] [place] [address] Lymphocytes/100 WBC (Bld) 16.1 % Normal 14.0-50.0 [facility] Comment on above: Performed By: #### 2 [id number] #### [facility] [address] [place] [address] MCH (RBC) [Entitic mass] 31.4 pg Normal 27.0-34.0 [facility] Comment on above: Performed By: #### 2 [id number] #### [facility] [address] [place] [address] MCHC (RBC) [Mass/Vol] 33.7 g/dL Normal 31.4-36.0 [facility] Comment on above: Performed By: #### 2 [id number] #### [facility] [address] [place] [address] MCV (RBC) [Entitic vol] 93.2 fL Normal 80.0-100.0 [facility] Comment on above: Performed By: #### 2 [id number] #### [facility] [address] [place] [address] Monocytes (Bld) [#/Vol] 0.8 E9/L Normal 0.2-1.0 [facility] Comment on above: Performed By: #### 2 [id number] #### [facility] [address] [place] [address] Neutrophils (Bld) [#/Vol] 7.3 E9/L Normal 2.0-7.5 [facility] Comment on above: Performed By: #### 2 [id number] #### [facility] [address] [place] [address] Neutrophils/100 WBC (Bld) 73.6 % Normal 36.0-75.0 [facility] Comment on above: Performed By: #### 2 [id number] #### [facility] [address] [place] [address] Platelet mean volume (Bld) [Entitic vol] 7.8 fL Normal 6.4-10.8 [facility] Comment on above: Performed By: #### 2 [id number] #### [facility] [address] [place] [address] Platelets (Bld) [#/Vol] 277.0 E9/L Normal 150.0-500.0 [facility] Comment on above: Performed By: #### 2 [id number] #### [facility] [address] [place] [address] RBC (Bld) [#/Vol] 3.5 E12/L Low 4.3-5.9 [facility] Comment on above: Performed By: #### 2 [id number] #### [facility] [address] [place] [address] WBC corrected for nucl RBC Auto (Bld) [#/Vol] 9.9 E9/L Normal 4.0-11.0 [facility] Comment on above: Performed By: #### 2 [id number] #### [facility] [address] [place] [address] Discharge Instructionson Discharge Instructions Discharge Instruc tions BENNIE DENNIS :1945 Visit Date:03/28/2024 Inpatient Discharge Instructions Your Care Team Admitting Physician - Eloisa Hassan MD Referring Physician - Eloisa Hassan MD Reason for Your Visit UC Your Diagnosis Chronic ulcerative colitis Erosive gastropathy Schatzki's ring Tests Performed BMP -- Results Pending -- CBC w/ Auto Diff -- Results Pending -- Hepatic Function Panel -- Results Pending -- Pathology Tissue Exam -- Results Pending -- Please visit your patient portal for your results or contact your primary care physician. This Is Your Medications List [facility] Prescription aspirin (aspirin 81 mg Oral EC Tab) atorvastatin (atorvastatin 80 mg Tab) carvedilol (carvedilol 12.5 mg Tab) cholecalciferol (Vitamin D3 1000 intl units (25 mcg) Tab) mesalamine (mesalamine 1.2 g oral enteric coated tablet) multivitamin (One-A-Day Men's Health Formula) multivitamin with minerals (ICaps AREDS 2) sacubitril-valsartan (Entresto 24 mg-26 mg oral tablet) spironolactone (spironolactone 25 mg Tab) warfarin (warfarin 4 mg Tab) Procedure History Cardiac catheter, Carotid endarterectomy, Colonoscopy. Discharge Vitals Temperature (Temporal Artery) 36.5 ???C Heart Rate (Monitored) 83 Respiratory Rate 22 Blood Pressure 79/47 Height 172.72 cm Weight 59.4 kg BMI 19.91 What to do next Instructions From Your Doctor No qualifying data available. Previously Scheduled Follow-Up Appointments 2024 10:00 AM EDT With: Cong STEWART, Pete Hooker Where: [address] [address]- Tuesday 11:00 AM EDT With: Where: [address] [place] [address]- New Follow Up Appointments after Discharge Follow Up with Eloisa Hassan When: Comments: Call for any problems. Where: [address], [address] [place] [phone] Business (1) Medications What How Much When Instructions Next Dose Unchanged aspirin (aspirin 81 mg Oral EC Tab) 1 Tablets By Mouth Every day Unchanged atorvastatin (atorvastatin 80 mg Tab) See instructions TAKE 1 TABLET DAILY Unchanged carvedilol (carvedilol 12.5 mg Tab) 1 Tablets By Mouth 2 times a day Unchanged cholecalciferol (Vitamin D3 1000 intl units (25 mcg) Tab) 1 Tablets By Mouth Every day Unchanged mesalamine (mesalamine 1.2 g oral enteric coated tablet) 2 Tablets Unchanged Misc Prescription 0 Mini fish oil 1340mg one a day Unchanged multivitamin (One-A-Day Men's Health Formula) 1 Tablets By Mouth Every day Unchanged multivitamin with minerals (ICaps AREDS 2) See instructions take 1 orally twice a da Unchanged sacubitril-valsartan (Entresto 24 mg-26 mg oral tablet) 1 Tablets By Mouth 2 times a day Unchanged spironolactone (spironolactone 25 mg Tab) See instructions 1/ 2 tablet orally daily Unchanged warfarin (warfarin 4 mg Tab) See instructions Take 4 mg orally on mondays, wednesdays and fridays and 8mg the other 4 days of the week Test Results No qualifying data available. Allergies No Known Medication Allergies Problems Ongoing - Any problem that you are currently receiving treatment for. Adhesive capsulitis of shoulder ASCVD (arteriosclerotic cardiovascular disease) Blood in stool BMI 22.0-22.9, adult Chronic anticoagulation DDD (degenerative disc disease), lumbar Elevated liver enzymes Esophageal dysphagia Hemiparesis Hx of arterial ischemic stroke Hx of heart artery stent Loose stools Nonsmoker Paroxysmal A-fib Prostate disorder Ulcerative colitis [employer] Colitis Colitis is a condition in which the colon is inflamed. It can cause diarrhea, blood in the stool, and abdominal pain. Colitis can last a short time (be acute), or it may last a long time (become chronic). What are the causes? This condition may be caused by: ??? Infections from viruses or bacteria. ??? A reaction to medicine. ??? Certain autoimmune diseases, such as Crohn's disease or ulcerative colitis. ??? Radiation treatment. ??? Decreased blood flow to the bowel (ischemia). What are the signs or symptoms? Symptoms of this condition include: ??? Diarrhea, blood in the stool, or black, tarry stool. ??? Pain in the joints or abdominal pain. ??? Fever or fatigue. ??? Vomiting. ??? Weight loss. ??? Bloating. ??? Having fewer bowel movements than usual. ??? A strong and sudden urge to have a bowel movement. ??? Feeling like the bowel is not empty after a bowel movement. How is this diagnosed? This condition may be diagnosed based on a stool test and a blood test. You may also have other tests, such as: ??? X-rays. ??? CT scan. ??? Colonoscopy. ??? Endoscopy. ??? Biopsy. (more content not included)... Normal [facility] Comment on above: Result Comment: Elec tronically Signed By: Wallace METCALF, Swetha\.br\Date and Time Signed: 03/28/24 10:06 EST H&P Updateon 03-28-2024 H&P Update H&P Update Patient: BENNIE DENNIS Age: 78 years Sex: Male : 1945 Associated Diagnoses: None Author: Debra STEWART, Eloisa Cheung Preoperative Information Chief compliant/Indication for procedure: Dysphagia, UC Chief Complaint as above Review of Systems All systems reviewed, negative except as mentioned above Physical Examination Vital Signs (last 24 hrs) Last Charted Temp Temporal 36.8 DegC (MAR 28:) Heart Rate Monitored 86 bpm (MAR 28) Resp Rate 16 br/min (MAR 28) SBP 115 mmHg (MAR 28:) DBP 67 mmHg (MAR 28) Weight 59.4 kg (MAR 28:) BMI 19.91 (MAR 28:) General: in Nad Abdomen: Soft, NTND Impression and Plan Diagnosis: Dysphagia, UC -EGD and colonoscopy Normal [facility] Hep Func Panelon 03-28-2024 Albumin [Mass/Vol] 3.5 g/dL Normal 3.3-5.0 [facility] Comment on above: Performed By: #### 2 [id number] #### [facility] [address] [place] [address] Albumin/Globulin (S) [Mass conc ratio] 1.1 Normal 1.1-2.2 [facility] Comment on above: Performed By: #### 2 [id number] #### [facility] [address] [place] [address] ALP [Catalytic activity/Vol] 108 Int._Unit/L High 21-98 [facility] Comment on above: Performed By: #### 2 [id number] #### [facility] [address] [place] [address] ALT No additional P-5'-P [Catalytic activity/Vol] 18 Int._Unit/L Normal 6-46 [facility] Comment on above: Performed By: #### 2 [id number] #### [facility] [address] [place] [address] AST [Catalytic activity/Vol] 24 Int._Unit/L Normal 5-43 [facility] Comment on above: Performed By: #### 2 [id number] #### [facility] [address] [place] [address] Bilirubin [Mass/Vol] 0.6 mg/dL Normal 0.0-1.1 [facility] Comment on above: Performed By: #### 2 [id number] #### [facility] [address] [place] [address] Bilirubin.direct [Mass/Vol] 0.1 mg/dL Normal 0.0-0.4 [facility] Comment on above: Performed By: #### 2 [id number] #### [facility] [address] [place] [address] Bilirubin.indirect [Mass or moles/Vol] 0.5 mg/dL Normal 0.1-0.9 [facility] Comment on above: Performed By: #### 2 [id number] #### [facility] [address] [place] [address] Globulin (S) [Mass/Vol] 3.2 g/dL Normal 1.4-4.0 [facility] Comment on above: Performed By: #### 2 [id number] #### [facility] [address] [place] [address] Protein [Mass/Vol] 6.7 g/dL Normal 6.0-7.8 [facility] Comment on above: Performed By: #### 2 [id number] #### [facility] [address] [place] [address] Main OR Intraoperative Recor don 03-28-2024 Main OR Intraoperative Record Main OR Intraoperative Record IntraOp Document Type FT Summary Primary Physician: Eloisa Hassan MD Finalized Date/Time: 03/28/24 10:07:19 Pt. Name: BENNIE DENNIS/Sex: 1945 Male Med Rec #: [id number] Physician: Eloisa Hassan MD Financial #: [id number] Pt. Type: O Room/Bed: / Admit/Disch: 03/28/24 07:50:54 - Institution: Case Times FT Entry 1 Patient Times In Room 03/28/24 09:34:00 Out Room 03/28/24 09:51:00 Procedure Times Start 03/28/24 09:35:00 Stop 03/28/24 09:47:00 Anesthesia Times Start 03/28/24 09:34:00 Stop 03/28/24 09:51:00 Last Modified By: Breana Mcmanus RN 03/28/24 10:05:34 General Comments: 0942-EGD completed/MICA RN 0943-Sigmoidoscopy started/AW RN Case Attendance FT Entry 1 Entry 2 Entry 3 Case Attendee Alie CATALAN, Jyoti Hassan MD, Eloisa Mcmanus RN, Breana Role Performed Anesthesiologist Surgeon - Primary Supervisor Spring Up - 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 Time In 03/28/24 09:34:00 03/28/24 09:34:00 03/28/24 09:34:00 Time Out 03/28/24 09:51:00 03/28/24 09:51:00 03/28/24 09:51:00 Procedure EGD(.), SIGMOIDOSCOPY(.) EGD(.), SIGMOIDOSCOPY(.) EGD(.), SIGMOIDOSCOPY(.) Comments Last Modified By: Marietta METCALF, Breana Mcmanus RN, Breana Avila RN 03/28/24 09:51:11 03/28/24 09:51:11 03/28/24 09:51:11 Entry 4 Entry 5 Case Attendee Lisa Rachel Kirstyn K Role Performed Scrub - Primary Staff - Other Time In 03/28/24 09:34:00 03/28/24 09:44:00 Time Out 03/28/24 09:51:00 03/28/24 09:51:00 Procedure EGD(.), SIGMOIDOSCOPY(.) SIGMOIDOSCOPY(.) Comments help in room Last Modified By: Marietta METCALF, Breana Mcmanus RN, Breana 03/28/24 09:51:11 03/28/24 09:51:11 Perioperative Protocols FT Pre-Care Text: Implements protective measures prior to operative or invasive procedure, confirms identity before the operative or invasive procedure, verifies operative procedure, surgical site, and laterality Entry 1 Procedure(s) EGD(.), SIGMOIDOSCOPY(.) Patient Identity Birthday, ID Band Verified (select at Check, Patient least 2): Participation Consents / H and P Anesthesia Consent, Operative Site N/A Verified H&P, Surgery/Procedure Marking Verified Consent Surgical Site No Laterality Verified n/a Verified Procedure Verified Yes Correct Patient Yes Position Verified Availability Equipment, Medication Prep Dry n/a Verified (If Applicable) PreOp Antibiotic No Time Out Jyoti Strange CRNA, Given Participants Debra STEWART, Marietta Sen RN, Wilson Toussaint Micala E Time Out Complete 03/28/24 09:34:00 Outcomes Met? Yes Last Modified By: Breana Mcmanus RN 03/28/24 09:40:24 Post-Care Text: The patient is free from signs and symptoms of injury caused by extraneous objects Allergy Information FT Pre-Care Text: Verifies allergies Entry 1 Allergies Reviewed? Yes Allergies Reviewed Self/Patient With Outcomes Met? Yes Last Modified By: Breana Mcmanus RN 03/28/24 09:40:30 Post-Care Text: The patient received appropriate medication(s) safely administered during the perioperative period Surgical Procedures FT Entry 1 Entry 2 Procedure Description Procedure EGD SIGMOIDOSCOPY Modifiers . . Surgeon Description EGD with gastic and EGD with gastic and esophageal biopsy, esophageal biopsy, esophageal dilation esophageal dilation using 18-19-20 balloon. using 18-19-20 balloon. SIGMOIDOSCOPY with SIGMOIDOSCOPY with left colon biopsy left colon biopsy Primary Procedure No Yes Primary Surgeon Debra STEWART, Eloisa Hassan MD, Eloisa Cheung Start 03/28/24 09:34:00 03/28/24 09:34:00 Stop 03/28/24 09:47:00 03/28/24 09:47:00 Anesthesia Type General None Surgical Service Gastroenterology Gastroenterology Wound Class 2 - Clean-Contaminated 2 - Clean-Contaminated Last Modified By: Breana Mcmanus RN, RN, Angela 03/28/24 09:50:42 03/28/24 09:51:25 General Case Data FT Pre-Care Text: Classifies surgical wound, implements aseptic technique, initiates traffic control Entry 1 Case Information OR ENDO 1 FT Case Level Level 2 Wound Class 2 - Clean-Contaminated Specialty Gastroenterology ASA Class 3 Preop Diagnosis Dysphagia, ulcerative Postop Same As Preop No colitis Postop Diagnosis EGD- erosive Outcomes Met? Yes gastropathy, Schatzki ring, hiatal hernia. Sigmoidoscopy-active left sided colitis, diverticulosis and internal hemorrhoids Last Modified By: Breana Mcmanus RN 03/28/24 10:05:24 Post-Care Text: The patient is free from signs and symptoms of infection Skin Assessment (Pre Procedure) FT Pre-Care Text: Implements protective measures to prevent skin/ tissue injury due to thermal or mechanical sources Evaluates for signs and symptoms of physical injury to skin and tissue Entry 1 Skin Integrity Dry, Warm, Pale Skin Abnormality No Outcomes Met? Yes Last Modified By: Breana Mcmanus RN 03/28/24 09:41:47 Post-Care Text: The patient i (more content not included)... Normal [facility] Main OR PACU I Recordon 03-18 Main OR PACU I Record Main OR PACU I Rec ord PACU Phase I Document Type FT Summary Primary Physician: Eloisa Hassan MD Finalized Date/Time: 03/28/24 10:43:40 Pt. Name: BENNIE DENNIS Emre/Sex: 1945 Male Med Rec #: [id number] Physician: Eloisa Hassan MD Financial #: [id number] Pt. Type: O Room/Bed: / Admit/Disch: 03/28/24 07:50:54 - Institution: Case Times PACU I FT Pre-Care Text: Identifies barriers to communication and implements measures to provide psychological support Develops individualized plan of care, and ensures continuity of care Maintains patient's dignity and privacy, and maintains patient confidentiality Identifies and reports philosophical, cultural, and spiritual beliefs and values Identifies individual values and wishes concerning care Implements aseptic technique, and administers prescribed antibiotic therapy and immunizing agents as ordered Evaluates postoperative tissue perfusion Implements thermoregulation measures, and monitors body temperature Evaluates postoperative respiratory status Evaluates postoperative cardiac status Evaluates postoperative neurological status Assesses pain control, collaborated in initiating patient-controlled analgesia and implements alternative methods of pain control Verifies allergies, administers prescribed medications and solutions, evaluates response to medications Entry 1 In PACU I 03/28/24 09:52:00 Discharge from PACU 03/28/24 10:30:00 I Outcomes Met? Yes Last Modified By: Swetha Gonsalez RN 03/28/24 10:43:20 Post-Care Text: The patient demonstrates knowledge of the expected response to the operative or invasive procedure The patient's care is consistent with the individualized perioperative plan of care The patient's right to privacy is maintained The patient's value system, lifestyle, ethnicity, and culture are considered, respected, and incorporated into the perioperative plan of care The patient participates in decisions affecting his or her perioperative plan of care The patient is free from signs and symptoms of infection The patient has wound/tissue perfusion consistent with or improved from baseline levels established preoperatively The patient is at or returning to normothermia at the conclusion of the immediate postoperative period The patient's respiratory function is consistent with or improved from baseline levels established preoperatively The patient's cardiovascular status is consistent with or improved from baseline levels established preoperatively The patient's cardiovascular status is consistent with or improved from baseline levels established preoperatively The patient demonstrates and/or reports adequate pain control throughout the perioperative period The patient received appropriate medication(s), safely administered during the perioperative period Acuity Level PACU I FT Entry 1 Start Time 03/28/24 09:52:00 Stop Time 03/28/24 10:30:00 Acuity Level Acuity Level I Last Modified By: Swetha Gonsalez RN 03/28/24 10:43:37 Finalized By: Swetha Gonsalez RN Document Signatures Signed By: Swetha Gonsalez RN 03/28/24 10:43 Normal [facility] Main OR Preoperative Recordo n 03-28-2024 Main OR Preoperative Record Main OR Preoperative Record Holding Area Document Type FT Summary Primary Physician: Eloisa Hassan MD Finalized Date/Time: 03/28/24 08:05:02 Pt. Name: ELVERBENNIE./Sex: 1945 Male Med Rec #: [id number] Physician: Eloisa Hassan MD Financial #: [id number] Pt. Type: O Room/Bed: / Admit/Disch: 03/28/24 07:50:54 - Institution: Case Times Holding FT Pre-Care Text: Verifies consent for planned procedure, identifies individual values and wishes concerning care, includes family members in perioperative teaching Secures patient's records' belongings, and valuables, maintains patient's dignity and privacy, and maintains patient confidentiality Entry 1 In Holding 03/28/24 08:00:00 Outcomes Met? Yes Last Modified By: Esther Jj RN 03/28/24 08:03:19 Post-Care Text: The patient participates in decisions affecting his or her perioperative plan of care The patient's right to privacy is maintained Surgery Checklist FT Entry 1 Patient Birthday, ID Band Procedure History and Physical, Identification: Check, Patient Verification: Surgical Consent, With Participation Patient NPO after Midnight: No Personal Items: Cataract Lens Implant, Defibrilator, Glasses, Pacemaker Personal Items clothes, bilateral Limitations: no Comment: lense implants Complaints of Pain: No Pain Comment: 10/25 abdominal pain Operative Site n/a Marked By: n/a Marking: Availability Equipment Verified: Does Patient Smoke No Patient states Yes Comment - Adult -zuly postop adult Supervision supervision available Case Cancelled in No Holding Area see comments below for reason Last Modified By: Esther Jj RN 03/28/24 08:05:00 General Comments: x2 fleets enemas to be done here./SHARI,RN Finalized By: Esther Jj RN Document Signatures Signed By: Esther Jj RN 03/28/24 08:05 Normal [facility] Operative Reporton Operative Report Operative Report Patient: BENNIE DENNIS Age: 78 years Sex: Male : 1945 Associated Diagnoses: None Author: Eloisa Hassan MD Pre-Procedure Procedure Date 03/28/2024 09:49:00 . Procedure Type: Esophagogastroduodenos copy with dilation of esophagus with balloon less than 30 mm. Procedure provider Performed by Eloisa Hassan MD. Current history and physical Documented on chart. Informed Consent After discussing the rationale, risks and benefits, and alternatives to this procedure, the patient provided signed consent for the procedure. Pre-procedure diagnosis: Dysphagia . Medications (Selected) Inpatient Medications Ordered Lactated Ringers IV Alisha 1000 mL 1,000 mL: 1,000 mL, IV, 100 mL/hr, Routine, Start date 03/28/24 8:18:00 EST, 10 hour(s), Total volume (mL): 1,000, 59.4 kg, 1.69, m2 Sodium Chloride 0.9% IV Alisha 1000 mL 1,000 mL: 1,000 mL, IV, 20 mL/hr, Routine, Start date 03/28/24 6:43:00 EST, 50 hour(s), Total volume (mL): 1,000, 63 kg, 1.71, m2 Prescriptions Prescribed atorvastatin 80 mg Tab: See Instructions, TAKE 1 TABLET DAILY, # 90 tab(s), Refills(s) 3, Pharmacy: [facility], 167.8, cm, 07/18/23 13:34:00 EDT, Height/Length Dosing, 66.2, kg, 07/18/23 13:34:00 EDT, Weight Dosing Documented Medications Documented Entresto 24 mg-26 mg oral tablet: 1 tab(s), Oral, BID, Refill(s) 0 ICaps AREDS 2: See Instructions, Refill(s) 0, take 1 orally twice a da, Prophylaxis Misc Prescription: Mini fish oil 1340mg one a day One-A-Day [employer]s Mira Dx Formula: 1 tab(s), Oral, Daily, Refill(s) 0, Prophylaxis Vitamin D3 1000 intl units (25 mcg) Tab: 25 mcg = 1 tab(s), Oral, Daily, Refills(s) 0, Prophylaxis aspirin 81 mg Oral EC Tab: 81 mg = 1 tab(s), Oral, Daily, Refills(s) 0, Prophylaxis carvedilol 12.5 mg Tab: 12.5 mg = 1 tab(s), Oral, BID, Refills(s) 0, High blood pressure mesalamine 1.2 g oral enteric coated tablet: 2.4 gm, 2 tab(s), Refill(s) 0 spironolactone 25 mg Tab: See Instructions, 1/2 tablet orally daily, Refills(s) 0, diuretic/water pill warfarin 4 mg Tab: See Instructions, Take 4 mg orally on mondays, wednesdays and fridays and 8mg the other 4 days of the week, Refills(s) 0 Anticoagulant/antiplat elet None. ASA Classification: Class III. . Monitoring: See anesthesia record. . Anticoagulation use: Procedure The procedure was performed in the hospital. See anesthesia record for sedation given during procedure. The patient was positioned starting in the left lateral decubitus position and with safety measures. Endoscope type used was an adult-size, introduced orally, advanced to the 2nd portion of the duodenum. No difficulty was encountered during the procedure. Views were excellent. The patient tolerated the procedure well. Findings 1. Small hiatal hernia. Mild Schatzki ring was noted at the GE junction. Dilation was performed using TTS balloon 18-19-20 mm, dilation was perfumed to 20 mm with moderate resistance. Minimal mucosal disruption was noted post dilation. No wall defect was seen afterwards. Biopsies obtained to disrupt the ring further and to obtain more samples from mid and lower esophagus 2. Patchy erythema with scattered erosions consistent with erosive gastropathy status post biopsies 3. Normal duodenum. Images Procedure images: Rec1_hd_video__ [id number].jpg Rec1_hd_video__ [id number].jpg Rec1_hd_video__ [id number].jpg Rec1_hd_video__ [id number].jpg Rec1_hd_video__ [id number].jpg Rec1_hd_video__ [id number].jpg Rec1_hd_video__ [id number].jpg . Post-Procedure Complications: none. Estimated blood loss: none. Specimens: None. Devices/ implants: none left in place. Impression and Plan hiatal hernia Schatzki's ring Erosive gastropathy Recommendations: -Liquid then soft diet today, advance as tolerated tomorrow -Resume home medications -Await pathology results, follow in GI clinic in 1-2 after discharge for Start omeprazole 40 mg daily Resume Coumadin tomorrow Normal [facility] Comment on above: Result Comment: Elec tronically Signed By: Debra STEWART, Eloisa Purdy.br\Date and Time Signed: 03/28/24 10:12 EST Other Comment: Nga hensley Attachment - attachment storage system not supported [id number] Can be viewed in source systemMissing Attachment - attachment storage system not supported [id number] Can be viewed in source systemMissing Attachment - attachment storage system not supported [id number] Can be viewed in source systemMissing Attachment - attachment storage system not supported [id number] Can be viewed in source systemMissing Attachment - attachment storage system not supported [id number] Can be viewed in source systemMissing Attachment - attachment storage system not supported [id number] Can be viewed in source systemMissing Attachment - attachment storage system not supported [id number] Can be viewed in source system Operative Report Operative Report Patient: BENNIE DENNIS Age: 78 years Sex: Male : 1945 Associated Diagnoses: None Author: Eloisa Hassan MD Pre-Procedure Procedure Date 03/28/2024 09:51:00 . Procedure Type: Flexible sigmoidoscopy with biopsy. Procedure provider Performed by Eloisa Hassan MD. Current history and physical Documented on chart. Colonoscopy ([id number]). Comments: 02/28/2023 10:40 EST - [employer], Marcela L 2013 and 2020 Cardiac catheter w/ stent ([id number]). Comments: 02/28/2023 10:40 EST - Sharmaine [employer] INST[employer]ER, Marcela L July 2012 Carotid endarterectomy w/ stent ([id number]). Comments: 02/28/2023 10:41 EST - Sharmaine [employer] INST[employer]ER, Marcela L July 2012. Past Medical History No active or resolved past medical history items have been selected or recorded.. Family History Heart disease Mother Acute myocardial infarction Mother Leukemia Father . Procedure History Colonoscopy ([id number]). Comments: 02/28/2023 10:40 EST - Sharmaine [employer] INST[employer]ER, Marcela L 2013 and 2020 Cardiac catheter w/ stent ([id number]). 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 Comments: 02/28/2023 10:41 EST - Sharmaine [employer] INST[employer]ER, Marcela L July 2012. Colorectal neoplasm risk assessment High risk UC. . Informed Consent After discussing the rationale, risks and benefits, and alternatives to this procedure, the patient provided signed consent for the procedure. Pre-procedure diagnosis: Diagnostic: Colitis. Medications (Selected) Inpatient Medications Ordered Lactated Ringers IV Alisha 1000 mL 1,000 mL: 1,000 mL, IV, 100 mL/hr, Routine, Start date 03/28/24 8:18:00 EST, 10 hour(s), Total volume (mL): 1,000, 59.4 kg, 1.69, m2 Sodium Chloride 0.9% IV Alisha 1000 mL 1,000 mL: 1,000 mL, IV, 20 mL/hr, Routine, Start date 03/28/24 6:43:00 EST, 50 hour(s), Total volume (mL): 1,000, 63 kg, 1.71, m2 Prescriptions Prescribed atorvastatin 80 mg Tab: See Instructions, TAKE 1 TABLET DAILY, # 90 tab(s), Refills(s) 3, [facility]acy: [facility], 167.8, cm, 07/18/23 13:34:00 EDT, Height/Length Dosing, 66.2, kg, 07/18/23 13:34:00 EDT, Weight Dosing Documented Medications Documented Entresto 24 mg-26 mg oral tablet: 1 tab(s), Oral, BID, Refill(s) 0 ICaps AREDS 2: See Instructions, Refill(s) 0, take 1 orally twice a da, Prophylaxis Misc Prescription: Mini fish oil 1340mg one a day One-A-Day [employer]Vitriflex Formula: 1 tab(s), Oral, Daily, Refill(s) 0, Prophylaxis Vitamin D3 1000 intl units (25 mcg) Tab: 25 mcg = 1 tab(s), Oral, Daily, Refills(s) 0, Prophylaxis aspirin 81 mg Oral EC Tab: 81 mg = 1 tab(s), Oral, Daily, Refills(s) 0, Prophylaxis carvedilol 12.5 mg Tab: 12.5 mg = 1 tab(s), Oral, BID, Refills(s) 0, High blood pressure mesalamine 1.2 g oral enteric coated tablet: 2.4 gm, 2 tab(s), Refill(s) 0 spironolactone 25 mg Tab: See Instructions, 1/2 tablet orally daily, Refills(s) 0, diuretic/water pill warfarin 4 mg Tab: See Instructions, Take 4 mg orally on mondays, wednesdays and fridays and 8mg the other 4 days of the week, Refills(s) 0 ASA Classification: Class III. . Monitoring: See anesthesia record. . Procedure The procedure was performed in the hospital. See anesthesia record for sedation given during procedure. The patient was positioned starting in the left lateral decubitus position. Endoscope type used was an adult-size. The endoscope was lubricated then introduced through the anus. The scope was advanced to the descending colon. No difficulties encountered during the procedure. The bowel preparation quality was fair and was adequate (see polyps greater than or equal to 6 millimeters). The patient tolerated the procedure well. Last colonoscopy Time to cecum: min Time of withdrawal: min Findings 1.Colitis changes noted in left colon compatible with previous history of ulcerative colitis: Godinez score 2 with moderate disease with marked erythema, absent vascular pattern, friability, erosions Random biopsies were taken to rule out CMV. Diverticulosis and large internal hemorrhoids Images Procedure images: Rec1_hd_video_2023__ [id number].jpg Rec1_hd_video_4__ [id number].jpg Rec1_hd_video_4__ [id number].jpg Rec1_hd_video_4__ [id number].jpg Rec1_hd_video_4__ [id number].jpg Rec1_hd_video_4__ [id number].jpg Rec1_hd_video_2023__ [id number].jpg Rec1_hd_video_2023__ [id number].jpg . Post-Procedure Complications: none. Estimated blood loss: Minimal. Specimens: sent to pathology. Devices/ implants: none left in place. Impr (more content not included)... Normal [facility] Comment on above: Result Comment: Elec tronically Signed By: Debra STEWART, Eloisa Cheung\.br\Date and Time Signed: 03/28/24 09:54 EST Other Comment: Nga hensley Attachment - attachment storage system not supported [id number] Can be viewed in source systemMissing Attachment - attachment storage system not supported [id number] Can be viewed in source systemMissing Attachment - attachment storage system not supported [id number] Can be viewed in source systemMissing Attachment - attachment storage system not supported [id number] Can be viewed in source systemMissing Attachment - attachment storage system not supported [id number] Can be viewed in source systemMissing Attachment - attachment storage system not supported [id number] Can be viewed in source systemMissing Attachment - attachment storage system not supported [id number] Can be viewed in source systemMissing Attachment - attachment storage system not supported [id number] Can be viewed in source system eGFRon 03-28-2024 eGFR 77 mL/min/1.73 m2 Normal >=59 [facility] Comment on above: Performed By: #### 1 [id number] #### [facility] [address] [place] [address] Gastroenterology Office/Clin ic Noteon 03-21-2024 Gastroenterology Office/Clinic Note Gastroenterology Office/Clinic Note Chief Complaint Betty Gar ref for UC HPI Staff Patient is a 78 year old male who was referred by Betty Gar for Ulcerative colitis. IBD Current Symptoms C/O frequent, loose stools postprandially He follows with Dr Jalloh but was referred here for a second opinion. Taking Mesalamine. Failed Balsalazide. Mesalamine did not work for him, he isn't taking it like he should - also said that this can mess with his INR, so they've had to change his dosage. Has abdominal pain associated with his ulcerative colitis. Rectal urgency: yes Blood in stool: yes Abdominal pain: yes Nausea/vomiting: no Weight loss: yes has about 8+ bowel movements a day. has been going on for 2-3 years dysphagia, sometimes solids. his heart is only working at 25% Taking Warfarin and aspirin 81mg. Denies GLP-1 agonists. Denies Fhx of colon ca. Last colonoscopy w/ Dr Jalloh 06/30/22 Findings There is pancolonic diverticulosis, most prominent in the left colon. There is mild Godinez I disease throughout the distal sigmoid and rectum. Biopsies obtained from the left colon, bottle 1-/ ulcerative colitis. The remainder of the colon exam was unremarkable. Retroflexion not performed due to active inflammation. Pathology: Colon, left, biopsy: - Chronic colitis, mild to moderately active. - Negative for epithelial dysplasia. COMMENT: The specimen shows patchy mild active colitis. There are architectural changes including abnormal crypt orientation/branching, Paneth cell metaplasia, and elevation of crypts relative to muscularis mucosa are present. Activity is evidenced by neutrophilic cryptitis and neutrophilic crypt abscesses. Epithelial dysplasia is absent. Granulomas are not seen. The findings are most consistent with inflammatory bowel disease in the correct clinical setting. Clinical and endoscopic correlation is advised. Laboratory Results CBC CMP Basophil Absolute: 0.1 E9/L (02/20/24) A/G Ratio: 1.5 (02/20/24) Basophil Auto: 0.8 % (02/20/24) AGAP: 11 mEq/L (02/20/24) Eos Absolute: 0.3 E9/L (02/20/24) Albumin Lvl: 4.4 gm/dL (02/20/24) Eos Auto: 3.8 % (02/20/24) Alk Phos: 109 Int._Unit/L High (02/20/24) Hct: 38.7 % (02/20/24) ALT: 42 Int._Unit/L (02/20/24) HGB: 13.1 gm/dL Low (02/20/24) AST: 45 Int._Unit/L High (02/20/24) Lymph Absolute: 1.6 E9/L (02/20/24) Bili Total: 0.7 mg/dL (02/20/24) Lymph Auto: 24.5 % (02/20/24) BUN: 19 mg/dL (02/20/24) MCH: 31.9 pg (02/20/24) BUN/Creat Ratio: 21 High (02/20/24) MCHC: 33.9 gm/dL (02/20/24) Calcium Lvl: 9.4 mg/dL (02/20/24) MCV: 94.2 fL (02/20/24) Chloride: 102 mmol/L (02/20/24) Will Absolute: 0.6 E9/L (02/20/24) CO2: 28 mmol/L (02/20/24) Will Auto: 8.3 % (02/20/24) Creatinine: 0.9 mg/dL (02/20/24) MPV: 9.2 fL (02/20/24) Globulin: 3 gm/dL (02/20/24) Neutro Absolute: 4.2 E9/L (02/20/24) Glucose Lvl: 91 mg/dL (02/20/24) Neutro Auto: 62.6 % (02/20/24) Potassium Lvl: 4.2 mmol/L (02/20/24) Platelet: 242 E9/L (02/20/24) Sodium Lvl: 137 mmol/L (02/20/24) RBC: 4.1 E12/L Low (02/20/24) Total Protein: 7.4 gm/dL (02/20/24) RDW: 13.2 % (02/20/24) WBC: 6.6 E9/L (02/20/24) History of Present Illness I have reviewed HPI staff note, most recent labs and imaging, I agree with the above documentation with the following additions/exceptions : Pt on mesalamine for UC, stopped since itis bothering him diagnosed about 1 year ago on it x 1 month 4-5 loose BMs with blood in it ( blood comes and goes) some mucous in thew stool pt with some dysphagia - no EGD last colonoscopy 1 year ago Abd cramping Review of Systems PHQ Score Initial Depression Screen Score: 0 SCORE Physical Exam Vitals & Measurements HR: 65(Peripheral) RR: 16 BP: 131/80 Assessment/Plan 1. Ulcerative colitis (K51.90: Ulcerative colitis, unspecified, without complications) Ordered: Acute Hepatitis A B C Panel MASSIMO w/Reflex if POS Antimitochondrial Antibody, Quantitative Calprotectin, Fecal Celiac Disease Comprehensive Clostridium Difficile PCR EGD Endoscopy (Hospital Procedure) Enteric Panel by PCR Ferritin Hepatitis A Virus (HAV) Antibody, Total IgA, Quant. IgG, Quant. O & P Exam, Routine Pancreatic Elastase, Fecal Sigmoidoscopy (Hospital Procedure) Smooth Muscle Antibody Screen t-Transglutaminase IgA TIBC Calculated Vitamin D 25 Hydroxy 2. Esophageal dysphagia (R13.19: Other dysphagia) 3. Chronic anticoagulation (Z79.01: supervisor intermediates (current) use of anticoagulants) 4. Loose stools (R19.5: Other fecal abnormalities) 5. Blood in stool (K92.1: Melena) 6. Elevated liver enzymes (R74.8: Abnormal levels of other serum enzymes) Patient did not respond to mesalamine and balsalazide and last colonoscopy was in June 2022 Repeat sigmoidoscopy to obtain biopsies and assess colitis Schedule EGD to evaluate esophageal dysphagia Check CRP, stool calprotectin, stool cultures, ova and parasites, C. difficil (more content not included)... Normal [facility] Comment on above: Result Comment: Elec tronically Signed By: Debra STEWART, Eloisa Purdy.dana\Date and Time Signed: 03/21/24 14:42 EST Ambulatory Visit Summaryon 1 05-01-2023 Ambulatory Visit Summary Ambulatory Visit Summary BENNIE DENNIS :1945 Visit Date:03/01/2024 Ambulatory Visit Instructions Your Diagnosis BMI 22.0-22.9, adult Nonsmoker ASCVD (arteriosclerotic cardiovascular disease) Ulcerative colitis Paroxysmal A-fib Diaphragmatic hernia without obstruction or gangrene Your Care Team Attending Physician - Pete Gar MD Primary Care Physician - Pete Gar MD This Is Your Medications List Contact prescribing physician if questions or concerns Misc Prescription aspirin (aspirin 81 mg Oral EC Tab) atorvastatin (atorvastatin 80 mg Tab) carvedilol (carvedilol 12.5 mg Tab) cholecalciferol (Vitamin D3 1000 intl units (25 mcg) Tab) mesalamine (mesalamine 1.2 g oral enteric coated tablet) multivitamin (One-A-Day Men's Health Formula) multivitamin with minerals (ICaps AREDS 2) sacubitril-valsartan (Entresto 24 mg-26 mg oral tablet) spironolactone (spironolactone 25 mg Tab) warfarin (warfarin 4 mg Tab) Procedures Performed Cardiac catheter, Carotid endarterectomy, Colonoscopy. Discharge Vitals Heart Rate (Peripheral) 84 Respiratory Rate 16 Blood Pressure 112/70 Height 167 cm Height 66 in Weight 63 kg Weight 138.891 lb BMI 22.59 What to do next Scheduled Follow-Up Appointments 2024 10:00 AM EDT With: Pete Gar MD Where: [address] [address]- Tuesday 11:00 AM EDT With: Where: [address] [address]- Medications What How Much When Instructions Unchanged aspirin (aspirin 81 mg Oral EC Tab) 1 Tablets By Mouth Every day Contact prescribing physician if questions or concerns Unchanged atorvastatin (atorvastatin 80 mg Tab) See instructions TAKE 1 TABLET DAILY Contact prescribing physician if questions or concerns Unchanged carvedilol (carvedilol 12.5 mg Tab) 1 Tablets By Mouth 2 times a day Contact prescribing physician if questions or concerns Unchanged cholecalciferol (Vitamin D3 1000 intl units (25 mcg) Tab) 1 Tablets By Mouth Every day Contact prescribing physician if questions or concerns Unchanged mesalamine (mesalamine 1.2 g oral enteric coated tablet) 2 Tablets Contact prescribing physician if questions or concerns Unchanged Misc Prescription 0 Mini fish oil 1340mg one a day Contact prescribing physician if questions or concerns Unchanged multivitamin (One-A-Day Men's Health Formula) 1 Tablets By Mouth Every day Contact prescribing physician if questions or concerns Unchanged multivitamin with minerals (ICaps AREDS 2) See instructions take 1 orally twice a da Contact prescribing physician if questions or concerns Unchanged sacubitril-valsartan (Entresto 24 mg-26 mg oral tablet) 1 Tablets By Mouth 2 times a day Contact prescribing physician if questions or concerns Unchanged spironolactone (spironolactone 25 mg Tab) See instructions 1/ 2 tablet orally daily Contact prescribing physician if questions or concerns Unchanged warfarin (warfarin 4 mg Tab) See instructions Take 4 mg orally on mondays, wednesdays and fridays and 8mg the other 4 days of the week Contact prescribing physician if questions or concerns Allergies No Known Medication Allergies Problems Ongoing - Any problem that you are currently receiving treatment for. Adhesive capsulitis of shoulder ASCVD (arteriosclerotic cardiovascular disease) BMI 22.0-22.9, adult DDD (degenerative disc disease), lumbar Hemiparesis Hx of arterial ischemic stroke Hx of heart artery stent Nonsmoker Paroxysmal A-fib Prostate disorder Ulcerative colitis Patient Survey You may receive a survey via text or e-mail asking about your office visit. Please share your experience with us by completing your survey. We appreciate your feedback and thank you for choosing us for your care. Kamran [facility] Family Medicine Office/Clini c Noteon 03-01-2024 Family Medicine Office/Clinic Note Family Medicine Office/Clinic Note Chief Complaint 6m Follow up Frequent bowel movements and abdominal pain related to ulcerative colitis. HPI Staff Bennie is a 78 year old male presenting for 6 month follow up a fib, ascvd, s/p stroke Has appt with Cardio next month to discuss getting pacemaker changed. No other concerns. Denies needing refills. History of Present Illness The patient is a 78-year-old male presenting with concerns primarily related to ulcerative colitis. The patient reports experiencing frequent, loose stools postprandially, which started several years ago. He has been treated with mesalamine, after balsalazide failed to adequately control his symptoms, but still reports persistent symptoms without significant improvement. The patient frequently experiences abdominal pain associated with his ulcerative colitis. He has not been compliant with increased water intake when taking medications, and continues to have symptoms exacerbated by dietary choices such as sweets. The patient regularly consults with Dr. Jalloh for gastrointestinal management and is scheduled for a follow-up in the coming months. Additionally, the patient has a history of arteriosclerotic cardiovascular disease and is under the care of Dr. Angela Stewart for cardiac management, including monitoring his pacemaker/defibrillato r, which recently delivered a therapeutic shock. He has paroxysmal atrial fibrillation. The patient denies any complications with his BMI, which is within the normal range, and maintains a nonsmoker status. The patient recalls an episode of a hiatal hernia identified years ago, which may contribute to episodic symptomatic acid reflux. There was also some mention of fluctuating liver enzymes which might be related to his gastrointestinal issues, although current kidney function tests are stable. - Blood pressure monitoring ??? currently stable. - Cardiology follow-up scheduled with Dr. Angela Stewart ??? pacemaker checked recently, no immediate concerns noted. - Gastroenterology follow-up with Dr. Jalloh for ulcerative colitis scheduled; considering referral for a second opinion. - Diet modification advised ??? avoidance of nuts and seeds, yet overconsumption of sweets noted. - Encouraged adequate hydration with medication administration. Review of Systems PHQ Score Initial Depression Screen Score: 0 SCORE - Gastrointestinal: Reports frequent loose stools and abdominal pain. - Cardiovascular: Denies current chest pain; history of therapeutic pacemaker shock. - General: Denies smoking, cardiac symptoms are managed. Physical Exam Vitals & Measurements HR: 84(Peripheral) RR: 16 BP: 112/70 SpO2: 94% HT: 66 in HT: 167 cm WT: 63 kg WT: 138.891 lb BMI: 22.59 General: alert, no acute distress ENMT: oral mucosa moist, Cardiovascular: regular rate and rhythm, normal peripheral perfusion Respiratory: Lungs CTA, respirations non labored Extremities: no deformity, no trauma Neurological: oriented x 4, LOC appropriate for age, CN II-XII intact, motor strength equal & normal bilaterally, speech normal Abdomen: Soft, Nontender, Non-distended, + BS Assessment/Plan 1. ASCVD (arteriosclerotic cardiovascular disease) (I25.10: Atherosclerotic heart disease of zuni coronary artery without angina pectoris) Continue current cardiovascular management under the supervision of Cardiology. Pacemaker functioning appropriately for another year as per recent evaluation. Ordered: Body Mass Index (BMI) documented 3008F Current tobacco non-user 1036F Depression Screening Negative 3352F Discharge medications reconciled with current medications in outpatient record 1111F [facility] Internal Ambulatory Referral Influenza immunization status assessed 1030F Medication list documented in medical record 1159F Most recent diastolic blood pressure <80 mm Hg 3078F Patient screen for fall risk: no falls in last year or 1 fall with no injury in last year 1101F Review of all meds by a prescribing practitioner or clinical pharmacist documented in EHR 1160F Systolic BP <130 mm Hg (Most Recent) 3074F 2. Ulcerative colitis (K51.90: Ulcerative colitis, unspecified, without complications) Continue treatment with mesalamine; consider referral for a second gastroenterology opinion due to persistent symptoms despite current management. Ordered: [facility] Internal Ambulatory Referral 3. Paroxysmal A-fib (I48.0: Paroxysmal atrial fibrillation) Ongoing cardiology management is adequate with recent device evaluation confirming proper function. Ordered: [facility] Internal Ambulatory Referral 4. Diaphragmatic hernia without obstruction or gangrene (K44.9) Consider discussion with pocket creaser regarding management of reflux symptoms. 5. BMI 22.0-22.9, adult (Z68.22: Body mass index [BMI] 22.0-22.9, adult) Continue current lifestyle and dietary habits with modifications in sweet intake. Ordered: [facility] Internal Ambulatory Referral 6. Nons (more content not included)... Normal [facility] Comment on above: Result Comment: Elec tronically Signed By: Cong STEWART, Pete Hooker\.br\Date and Time Signed: 03/01/24 10:13 EST CBC w/ Auto Diffon 4 Basophils/100 WBC (Bld) 0.8 % Normal 0.0-2.0 [facility] Comment on above: Performed By: #### 2 [id number] #### [facility] [address] [place] [address] Basophils/Leukocytes Auto (Bld) [Pure # fraction] 0.1 E9/L Normal 0.0-0.2 [facility] Comment on above: Performed By: #### 2 [id number] #### [facility] [address] [place] [address] Eosinophils (Bld) [#/Vol] 0.3 E9/L Normal 0.0-0.5 [facility] Comment on above: Performed By: #### 2 [id number] #### [facility] [address] [place] [address] Eosinophils/100 WBC (Bld) 3.8 % Normal 0.0-8.0 [facility] Comment on above: Performed By: #### 2 [id number] #### [facility] [address] [place] [address] Erythrocyte distribution width (RBC) [Ratio] 13.2 % Normal 10.9-14.2 [facility] Comment on above: Performed By: #### 2 [id number] #### [facility] [address] [place] [address] Hematocrit (Bld) [Volume fraction] 38.7 % Normal 37.7-49.0 [facility] Comment on above: Performed By: #### 2 [id number] #### [facility] [address] [place] [address] Hemoglobin (Bld) [Mass/Vol] 13.1 g/dL Low 13.5-17.5 [facility] Comment on above: Performed By: #### 2 [id number] #### [facility] [address] [place] [address] Lymphocytes (Bld) [#/Vol] 1.6 E9/L Normal 1.0-4.0 [facility] Comment on above: Performed By: #### 2 [id number] #### [facility] [address] [place] [address] Lymphocytes/100 WBC (Bld) 24.5 % Normal 14.0-50.0 [facility] Comment on above: Performed By: #### 2 [id number] #### [facility] [address] [place] [address] MCH (RBC) [Entitic mass] 31.9 pg Normal 27.0-34.0 [facility] Comment on above: Performed By: #### 2 [id number] #### [facility] [address] [place] [address] MCHC (RBC) [Mass/Vol] 33.9 g/dL Normal 31.4-36.0 [facility] Comment on above: Performed By: #### 2 [id number] #### [facility] [address] [place] [address] MCV (RBC) [Entitic vol] 94.2 fL Normal 80.0-100.0 [facility] Comment on above: Performed By: #### 2 053710 #### [facility] [address] [place] [address] Monocytes (Bld) [#/Vol] 0.6 E9/L Normal 0.2-1.0 [facility] Comment on above: Performed By: #### 2 [id number] #### [facility] [address] [place] [address] Neutrophils (Bld) [#/Vol] 4.2 E9/L Normal 2.0-7.5 [facility] Comment on above: Performed By: #### 2 [id number] #### [facility] [address] [place] [address] Neutrophils/100 WBC (Bld) 62.6 % Normal 36.0-75.0 [facility] Comment on above: Performed By: #### 2 172393 #### [facility] [address] [place] [address] Platelet 242.0 E9/L Normal 150.0-500.0 [facility] Comment on above: Performed By: #### 2 [id number] #### [facility] [address] [place] [address] Platelet mean volume (Bld) [Entitic vol] 9.2 fL Normal 6.4-10.8 [facility] Comment on above: Performed By: #### 2 546037 #### [facility] [address] [place] [address] RBC (Bld) [#/Vol] 4.1 E12/L Low 4.3-5.9 [facility] Comment on above: Performed By: #### 2 [id number] #### [facility] [address] [place] [address] WBC corrected for nucl RBC Auto (Bld) [#/Vol] 6.6 E9/L Normal 4.0-11.0 [facility] Comment on above: Performed By: #### 2 [id number] #### [facility] [address] [place] [address] CHEMISTRYOrdered By: SYSTEM SYSTEM on 02-20-2024 Albumin [Mass/Vol] 4.4 g/dL Normal 3.3 - 5.0 gm/dL R emisol Chem Albumin/Globulin [Mass ratio] 1.5 {ratio} Normal 1.1 - 2.2 [facility] ALP [Catalytic activity/Vol] 109 [iU]/d High 21 - 98 Int._Unit/L [facility] ALT No additional P-5'-P [Catalytic activity/Vol] 42 [iU]/d Normal 6 - 46 Int._Unit/L [facility] Anion gap [Moles/Vol] 11 mmol/L Normal 6 - 16 mEq/L R emisol Chem AST [Catalytic activity/Vol] 45 [iU]/d High 5 - 43 Int._Unit/L [facility] Bilirubin [Mass/Vol] 0.7 mg/dL Normal 0.0 - 1.1 mg/dL [facility] Calcium [Mass/Vol] 9.4 mg/dL Normal 8.9 - 11. 1 mg/dL [facility] Chloride [Moles/Vol] 102 mmol/L Normal 101 - 1 11 mmol/L [facility] Cholesterol [Mass/Vol] 140 mg/dL Normal 120 - 200 mg/ dL [facility] Cholesterol in HDL [Mass/Vol] 38 mg/dL Invalid Interpretation Code [facility] Comment on above: Result Comment: '>= 60 LOW RISK' '<= 40 HIGH RISK' Cholesterol in LDL [Mass/Vol] 85 mg/dL Normal <=129mg/dL [facility] Cholesterol in VLDL [Mass/Vol] 30 mg/dL Normal 7 - 40 mg/dL [facility] CO2 [Moles/Vol] 28 mmol/L Normal 21 - 31 mmol/L Remis ol Chem Creatinine [Mass/Vol] 0.9 mg/dL Normal 0.5 - 1.3 mg/d L [facility] eGFR 88 mL/min/1.73 m2 Normal >=59mL/min /1.73 m2 [facility] Globulin (S) [Mass/Vol] 3.0 g/dL Normal 1.4 - 4.0 gm/dL [facility] Glucose [Mass/Vol] 91 mg/dL Normal 55 - 199 mg/dL Re misol Chem Potassium [Moles/Vol] 4.2 mmol/L Normal 3.5 - 5.3 mmol/L [facility] Prostate specific Ag [Mass/Vol] 0.6 ng/mL Normal 0.1 - 3.5 ng/mL [facility] Comment on above: Interpretive Data: T he concentration of PSA determined by different manufacturers can vary due to differences in assay methods and reagent specificity. Values obtained from different assay methods cannot be used interchangeably. The methodology used for this result was chemiluminescence using [employer]'s Access Hybritech PSA reagent. Protein [Mass/Vol] 7.4 g/dL Normal 6.0 - 7.8 gm/dL R emisol Chem Sodium [Moles/Vol] 137 mmol/L Normal 135 - 145 mmol/L [facility] Triglyceride [Mass/Vol] 149 mg/dL Normal <=149mg/dL [facility] Urea nitrogen [Mass/Vol] 19 mg/dL Normal 5 - 21 mg/dL [facility] Urea nitrogen/Creatinine [Mass ratio] 21 mg/mg High 10 - 20 [facility] CMPon 02-20-2024 Albumin [Mass/Vol] 4.4 g/dL Normal 3.3-5.0 [facility] Comment on above: Performed By: #### 2 [id number] #### [facility] [address] [place] [address] Albumin/Globulin (S) [Mass conc ratio] 1.5 Normal 1.1-2.2 [facility] Comment on above: Performed By: #### 2 [id number] #### [facility] [address] [place] [address] ALP [Catalytic activity/Vol] 109 Int._Unit/L High 21-98 [facility] Comment on above: Performed By: #### 2 [id number] #### [facility] [address] [place] [address] ALT No additional P-5'-P [Catalytic activity/Vol] 42 Int._Unit/L Normal 6-46 [facility] Comment on above: Performed By: #### 2 [id number] #### [facility] [address] [place] [address] Anion gap [Moles/Vol] 11 mmol/L Normal 6-16 [facility] Comment on above: Performed By: #### 2 [id number] #### [facility] [address] [place] [address] AST [Catalytic activity/Vol] 45 Int._Unit/L [facility] 5-43 [facility] Comment on above: Performed By: #### 2 [id number] #### [facility] [address] [place] [address] Bilirubin [Mass/Vol] 0.7 mg/dL Normal 0.0-1.1 [facility] Comment on above: Performed By: #### 2 816047 #### [facility] [address] [place] [address] Calcium [Mass/Vol] 9.4 mg/dL Normal 8.9-11.1 [facility] Comment on above: Performed By: #### 2 939644 #### [facility] [address] [place] [address] Chloride [Moles/Vol] 102 mmol/L Normal 101-111 [facility] Comment on above: Performed By: #### 2 613856 #### [facility] [address] [place] [address] CO2 [Moles/Vol] 28 mmol/L Normal 21-31 [facility] Comment on above: Performed By: #### 2 705913 #### [facility] [address] [place] [address] Creatinine [Mass/Vol] 0.9 mg/dL Normal 0.5-1.3 [facility] Comment on above: Performed By: #### 2 847019 #### [facility] [address] [place] [address] Globulin (S) [Mass/Vol] 3.0 g/dL Normal 1.4-4.0 [facility] Comment on above: Performed By: #### 2 456901 #### [facility] [address] [place] [address] Glucose [Mass/Vol] 91 mg/dL Normal 55-199 [facility] Comment on above: Performed By: #### 2 994019 #### [facility] [address] [place] [address] Potassium [Moles/Vol] 4.2 mmol/L Normal 3.5-5.3 [facility] Comment on above: Performed By: #### 2 480479 #### [facility] [address] [place] [address] Protein [Mass/Vol] 7.4 g/dL Normal 6.0-7.8 [facility] Comment on above: Performed By: #### 2 [id number] #### [facility] [address] [place] [address] Sodium [Moles/Vol] 137 mmol/L Normal 135-145 [facility] Comment on above: Performed By: #### 2 [id number] #### [facility] [address] [place] [address] Urea nitrogen [Mass/Vol] 19 mg/dL Normal 5-21 [facility] Comment on above: Performed By: #### 2 677956 #### [facility] [address] [place] [address] Urea nitrogen/Creatinine [Mass ratio] 21 No Units High 10-20 [facility] Comment on above: Performed By: #### 2 686291 #### [facility] [address] [place] [address] HEMATOLOGYOrdered By: SYSTEM SYSTEM on 02-20-2024 Basophils/100 WBC (Bld) 0.8 % Normal 0.0 - 2.0 % [facility] Basophils/Leukocytes Auto (Bld) [Pure # fraction] 0.1 E9/L Normal 0.0 - 0.2 E9/L [facility] Eosinophils (Bld) [#/Vol] 0.3 E9/L Normal 0.0 - 0.5 E9/L [facility] Eosinophils/100 WBC (Bld) 3.8 % Normal 0.0 - 8.0 % [facility] Erythrocyte distribution width (RBC) [Ratio] 13.2 % Normal 10.9 - 14.2 % [facility] Hematocrit (Bld) [Volume fraction] 38.7 % Normal 37.7 - 49.0 % [facility] Hemoglobin (Bld) [Mass/Vol] 13.1 g/dL Low 13.5 - 17.5 gm/dL [facility] Lymphocytes (Bld) [#/Vol] 1.6 E9/L Normal 1.0 - 4.0 E9/L [facility] Lymphocytes/100 WBC (Bld) 24.5 % Normal 14.0 - 50.0 % [facility] MCH (RBC) [Entitic mass] 31.9 pg Normal 27.0 - 34.0 pg [facility] MCHC (RBC) [Mass/Vol] 33.9 g/dL Normal 31.4 - 36.0 gm/dL [facility] MCV (RBC) [Entitic vol] 94.2 fL Normal 80.0 - 100.0 fL [facility] Monocytes (Bld) [#/Vol] 0.6 E9/L Normal 0.2 - 1.0 E9/L [facility] Monocytes/100 WBC (Bld) 8.3 % Normal 4.0 - 14.0 % [facility] Neutrophils (Bld) [#/Vol] 4.2 E9/L Normal 2.0 - 7.5 E9/L [facility] Neutrophils/100 WBC (Bld) 62.6 % Normal 36.0 - 75.0 % [facility] Platelet 242.0 E9/L Normal 150.0 - 500.0 E9/L [facility] Platelet mean volume (Bld) [Entitic vol] 9.2 fL Normal 6.4 - 10.8 fL [facility] RBC (Bld) [#/Vol] 4.1 E12/L Low 4.3 - 5.9 E12/L Re misol Heme WBC corrected for nucl RBC Auto (Bld) [#/Vol] 6.6 E9/L Normal 4.0 - 11.0 E9/L [facility] Lipid Panelon 02-20-2024 Cholesterol [Mass/Vol] 140 mg/dL Normal 120-200 [facility] Comment on above: Performed By: #### 2 [id number] #### [facility] [address] [place] [address] Cholesterol in HDL [Mass/Vol] 38 mg/dL Invalid Interpretation Code [facility] Comment on above: Result Comment: '>= 60 LOW RISK' '<= 40 HIGH RISK' Performed By: #### 2 [id number] #### [facility] [address] [place] [address] Cholesterol in LDL [Mass/Vol] 85 mg/dL Normal <=129 [facility] Comment on above: Performed By: #### 2 [id number] #### [facility] [address] [place] [address] Cholesterol in VLDL [Mass/Vol] 30 mg/dL Normal 7-40 [facility] Comment on above: Performed By: #### 2 515241 #### [facility] [address] [place] [address] Triglyceride [Mass/Vol] 149 mg/dL Normal <=149 [facility] Comment on above: Performed By: #### 2 [id number] #### [facility] [address] [place] [address] PSA Screen, Totalon 02-20-20 24 Prostate specific Ag [Mass/Vol] 0.6 ng/mL Normal 0.1-3.5 [facility] Comment on above: Result Comment: The concentration of PSA determined by different manufacturers can vary due to differences in assay methods and reagent specificity. Values obtained from different assay methods cannot be used interchangeably. The methodology used for this result was chemiluminescence using [employer]'s Access Hybritech PSA reagent. Performed By: #### 1 [id number] ####[facility] [address] [place] [address] eGFRon 02-20-2024 eGFR 88 mL/min/1.73 m2 Normal >=59 [facility] Comment on above: Performed By: #### 1 [id number] #### [facility] [address] [place] [address] 36on 01-02-2024 36 Not being followed b y [facility] Normal [facility] Family Medicine Office/Clini c Noteon 09-07-2023 Family Medicine Office/Clinic Note Chief Complaint Medicare Wellness Visit History of Present Illness Covid-19, MERS, Ebola Screen *Contact With Person With Highly Contagious Disease Like Ebola/MERS/COVID-19 AND Have One or More of the Symptoms Below : No *Travel to a Country With Wide-Spread Ebola/MERS/COVID-19 in the Past 21 Days AND Have One or More of the Symptoms Below : No Patient Reported Covid-19 Testing : No *Verify Droplet, Contact Precautions for Ebola (Reference for CDC) : N/A *Verify Airborne, Droplet Precautions for MERS/COVID-19 : N/A Areli Fitzgerald LPN L - 09/06/2023 10:52 EDT Medicare/Medicaid Summary Numeric Rating Pain Score : 7 Areli Fitzgerald LPN Keena - 09/06/2023 12:33 EDT Systolic Blood Pressure : 110 mmHg Diastolic Blood Pressure : 64 mmHg Peripheral Pulse Rate : 66 bpm Respiratory Rate : 16 br/min SpO2 : 93 % Areli Fitzgerald LPN Keena - 09/06/2023 11:00 EDT Chief Complaint : Medicare Wellness Visit Patient Counseled : Nutrition, Physical activity Height/Length Measured : 167 cm(Converted to: 5 ft 6 in, 65.75 in) Weight Measured : 63.8 kg(Converted to: 140 lb 10 Ounces, 140.655 lb) Body Mass Index Measured : 22.88 kg/m2 Height in Inches : 66 in Weight in Pounds : 140.36 lb Blood Pressure Location : Right arm Blood Pressure Position : Sitting O2 Sat Resting/Exertion Alpha : Resting Pain Present : No actual or suspected pain Areli Fitzgerald LPN - 09/06/2023 10:52 EDT Hearing and Vision Screening FT FT Whisper Test Comments : Patient does not have hearing aids, states he doesn't think he needs them. Vision Screen Comments : Wears corrective lenses. Goes to [facility] for eye exams. Areli Fitzgerald LPN - 09/06/2023 12:33 EDT Advance Directive FT Type of Advance Directive : Living will, Medical durable power of trust and estates attorney Patient Wishes to Receive Further Information on Advance Directives : No Organ Donation Consent : No Advance Directive : Yes Areli Fitzgerald LPN - 09/06/2023 12:33 EDT Procedures / Surgeries FT - Procedure History (As Of: 09/06/2023 12:56:23 EDT) Anesthesia Minutes: 0 ; Procedure Name: Carotid endarterectomy w/ stent ; Procedure Minutes: 0 ; Comments: 02/28/2023 10:41 KRISTA - Marcela Schmid LPN July 2012 ; Last Reviewed Dt/Tm: 09/06/2023 12:45:27 EDT Anesthesia Minutes: 0 ; Procedure Name: Cardiac catheter w/ stent ; Procedure Minutes: 0 ; Comments: 02/28/2023 10:40 Marcela Ignacio LPN July 2012 ; Last Reviewed Dt/Tm: 09/06/2023 12:45:27 EDT Anesthesia Minutes: 0 ; Procedure Name: Colonoscopy ; Procedure Minutes: 0 ; Comments: 02/28/2023 10:40 KRISTA - Annette Schmid LPNith L 2013 and 2020 ; Last Reviewed Dt/Tm: 09/06/2023 12:45:27 EDT Family History Family History (As Of: 09/06/2023 12:56:23 EDT) Father: Relation: Father ; Gender: Male ; Nomenclature: Leukemia ; Value: Positive Mother: Relation: Mother ; Gender: Female ; Nomenclature: Heart disease ; Value: Positive Nomenclature: Acute myocardial infarction ; Value: Positive Medicare/Medicaid Social History FT Social History (As Of: 09/06/2023 13:00:04 EDT) Alcohol: Denies Alcohol Use (Last Updated: 09/06/2023 12:45:32 EDT by Areli Fitzgerald LPN ) Tobacco: Never (less than 100 in lifetime) Tobacco Use:. Never Smokeless Tobacco Use:. Household tobacco concerns: No. (Last Updated: 09/06/2023 10:46:23 EDT by Marcela Schmid LPN) Substance Abuse: Denies Substance Abuse (Last Updated: 09/06/2023 12:45:33 EDT by Areli Fitzgerald LPN ) Health Risk Assessment FT HRA little interest or pleasure? : No HRA down, depressed, or hopeless? : Yes Hazards in your house? : No Areli Fitzgerald LPN - 09/06/2023 10:52 EDT Fall Risk Past Year : No Areli Fitzgerald LPN 09/06/2023 12:59 EDT Worried About Falling : No Use a Cane or Walker? : No Someone Helps You in the Morning : No Fallen or felt dizzy standing up? : Yes Assistance with personal care? : No Trouble taking meds correctly? : No HRA Pain Present : Yes Primary Pain Location : Back Numeric Rating Pain Scale : 7 Numeric Rating Pain Score : 7 Able to walk without help? : Yes Ability to shop w/out help : Yes Prepare your own meals? : No Housework without help? : Yes Handle money without help : Yes Track own medications without help? : No Overall mood for past four weeks : Good and bad parts about equal General health rating : Fair Someone avail. to help if needed? : Yes, some Phys. & emotional health limit social act? : Moderately Areli Fitzgerald LPN - 09/06/2023 10:52 EDT Misc Health Risks Grid Sexual problems : Sometimes Problems using the telephone : Never Areli Fitzgerald LPN 09/06/2023 10:52 EDT Confident you control health problems : Somewhat confident Difficulties driving your car? : No Seatbelts : I always fasten my seat belt Areli Fitzgerald LPN 09/06/2023 10:52 EDT Depression Screening Little Interest, Pleasure in Activities (ref) : Not at all Feeling Down, Depre (more content not included)... Normal [facility] Comment on above: Result Comment: Elec tronically Signed By: Pete Gar MD\.br\Date and Time Signed: 09/07/23 13:02 EDT\.br\Electronically Co-Signed By: Areli Fitzgerald LPN\.br\Date and Time Co-Signed: 09/06/23 13:19 EDT Ambulatory Visit Summaryon 0 09-06-2023 Ambulatory Visit Summary BENNIE DENNIS :1945 Visit Date:09/06/2023 Ambulatory Visit Instructions Your Diagnosis Annual visit for general adult medical examination without abnormal findings Hemiparesis Paroxysmal A-fib Ulcerative colitis ASCVD (arteriosclerotic cardiovascular disease) On statin therapy Screening for prostate cancer Anticoagulated Your Care Team Attending Physician - Pete Gar MD Primary Care Physician - Pete Gar MD This Is Your Medications List [facility] Prescription aspirin (aspirin 81 mg Oral EC Tab) atorvastatin (atorvastatin 80 mg Tab) balsalazide (balsalazide 750 mg oral capsule) carvedilol (carvedilol 12.5 mg Tab) cholecalciferol (Vitamin D3 1000 intl units (25 mcg) Tab) multivitamin (One-A-Day Men's Health Formula) multivitamin with minerals (ICaps AREDS 2) sacubitril-valsartan (Entresto 24 mg-26 mg oral tablet) spironolactone (spironolactone 25 mg Tab) warfarin (warfarin 4 mg Tab) Procedures Performed Cardiac catheter, Carotid endarterectomy, Colonoscopy. Discharge Vitals Heart Rate (Peripheral) 66 Respiratory Rate 16 Blood Pressure 110/64 Height 167 cm Height 66 in Weight 63.8 kg Weight 140.36 lb BMI 22.88 What to do next Scheduled Follow-Up Appointments Tuesday 10:00 AM EDT With: Where: [facility] [place] Invalid Interpretation Code [address] [place] [address]- \.br\ Tuesday 11:00 AM EDT \.br\ With:\.br\ Where: [facility] Ambulatory Visit Summary BENNIE DENNIS :1945 Visit Date:09/06/2023 Ambulatory Visit Instructions Your Diagnosis ASCVD (arteriosclerotic cardiovascular disease) Paroxysmal A-fib Hemiparesis BMI 22.0-22.9, adult Nonsmoker Hypotension Your Care Team Attending Physician - Pete Gar MD Primary Care Physician - Pete Gar MD This Is Your Medications List Contact prescribing physician if questions or concerns Misc Prescription aspirin (aspirin 81 mg Oral EC Tab) atorvastatin (atorvastatin 80 mg Tab) balsalazide (balsalazide 750 mg oral capsule) carvedilol (carvedilol 12.5 mg Tab) cholecalciferol (Vitamin D3 1000 intl units (25 mcg) Tab) multivitamin (One-A-Day Men's Health Formula) multivitamin with minerals (ICaps AREDS 2) sacubitril-valsartan (Entresto 24 mg-26 mg oral tablet) spironolactone (spironolactone 25 mg Tab) warfarin (warfarin 4 mg Tab) Procedures Performed Cardiac catheter, Carotid endarterectomy, Colonoscopy. Discharge Vitals Temperature (Temporal Artery) 37.2 ?C Heart Rate (Peripheral) 66 Respiratory Rate 16 Blood Pressure 110/64 Height 167.8 cm Height 66 in Weight 64.2 kg Weight 141.24 lb BMI 22.8 Medications What How Much When Instructions Unchanged aspirin (aspirin 81 mg Oral EC Tab) 1 Tablets By Mouth Every day Contact prescribing physician if questions or concerns Unchanged atorvastatin (atorvastatin 80 mg Tab) See instructions TAKE 1 TABLET DAILY Contact prescribing physician if questions or concerns Unchanged balsalazide (balsalazide 750 mg oral capsule) 3 Capsules By Mouth 3 times a day Contact prescribing physician if questions or concerns Unchanged carvedilol (carvedilol 12.5 mg Tab) 1 Tablets By Mouth 2 times a day Contact prescribing physician if questions or concerns Unchanged cholecalciferol (Vitamin D3 1000 intl units (25 mcg) Tab) 1 Tablets By Mouth Every day Contact prescribing physician if questions or concerns Unchanged Misc Prescription 0 Mini fish oil 1340mg one a day Contact prescribing physician if questions or concerns Unchanged multivitamin (One-A-Day Men's Health Formula) 1 Tablets By Mouth Every day Contact prescribing physician if questions or concerns Unchanged multivitamin with minerals (ICaps AREDS 2) See instructions take 1 orally twice a da Contact prescribing physician if questions or concerns Unchanged sacubitril-valsartan (Entresto 24 mg-26 mg oral tablet) 1 Tablets By Mouth 2 times a day Contact prescribing physician if questions or concerns Unchanged spironolactone (spironolactone 25 mg Tab) See instructions 1/ 2 tablet orally daily Contact prescribing physician if questions or concerns Unchanged warfarin (warfarin 4 mg Tab) See instructions Take 4 mg orally on mondays, wednesdays and fridays and 8mg the other 4 days of the week Contact prescribing physician if questions or concerns Allergies No Known Medication Allergies Problems Ongoing - Any problem that you are currently receiving treatment for. Adhesive capsulitis of shoulder ASCVD (arteriosclerotic cardiovascular disease) DDD (degenerative disc disease), lumbar Hemiparesis Hx of arterial ischemic stroke Hx of heart artery stent Paroxysmal A-fib Prostate disorder Ulcerative colitis Patient Survey You may receive a survey via text or e-mail asking about your office visit. Please share your experience with us by completing your survey. We appreciate your feedback and thank you for choosing us for your care. Education Materials BMI for Adults What is BMI? Body [...] numbers. This can be done either in [place] or metric measurements. Note that charts and online BMI calculators are available to help you find your BMI quickly and easily without having to do these calculations yourself. To calculate your BMI in [place] measurements: 1. Measure (more content not included)... Normal [facility] Family Medicine Office/Clini c Noteon 09-06-2023 Family Medicine Office/Clinic Note HPI Staff Bennie is a 78 year old male presenting for 6 month follow up chronic conditions a fib and hypotension Has AMW after his visit with you questions/concerns: none History of Present Illness - Doing well. - NO complaints - Reviewed meds Review of Systems PHQ Score Initial Depression Screen Score: 1 SCORE Physical Exam Vitals & Measurements T: 37.2 ?C(Temporal Artery) HR: 66(Peripheral) RR: 16 BP: 110/64 SpO2: 93% HT: 66 in HT: 167.8 cm WT: 64.2 kg WT: 141.24 lb BMI: 22.8 General: alert, no acute distress ENMT: oral mucosa moist, Cardiovascular: regular rate and rhythm, normal peripheral perfusion Respiratory: Lungs CTA, respirations non labored Extremities: no deformity, no trauma Neurological: oriented x 4, LOC appropriate for age, CN II-XII intact, motor strength equal & normal bilaterally, speech normal Abdomen: Soft, Nontender, Non-distended, + BS Assessment/Plan 1. ASCVD (arteriosclerotic cardiovascular disease) (I25.10: Atherosclerotic heart disease of zuni coronary artery without angina pectoris) - No CP today. - Seeing Cardiology tomorrow. - No concerns at this time. 2. Paroxysmal A-fib (I48.0: Paroxysmal atrial fibrillation) - NSR today - Reviewed meds - No other issues at this time. 3. Hemiparesis (G81.90: Hemiplegia, unspecified affecting unspecified side) - Stable - No change 4. BMI 22.0-22.9, adult (Z68.22: Body mass index [BMI] 22.0-22.9, adult) - BMI education uploaded 5. Nonsmoker (Z78.9: Other specified health status) - Please continue to not smoke 6. Hypotension (I95.9: Hypotension, unspecified) - Resolved Follow-up No qualifying data available Patient Education BMI for Adults Problem List/Past Medical History Ongoing Adhesive capsulitis of shoulder ASCVD (arteriosclerotic cardiovascular disease) DDD (degenerative disc disease), lumbar Hemiparesis Hx of arterial ischemic stroke Hx of heart artery stent Paroxysmal A-fib Prostate disorder Ulcerative colitis Historical No qualifying data Procedure/Surgical History Cardiac catheter, Carotid endarterectomy, Colonoscopy. Medications aspirin 81 mg Oral EC Tab, 81 mg= 1 tab(s), Oral, Daily atorvastatin 80 mg Tab, See Instructions balsalazide 750 mg oral capsule, 2250 mg= 3 cap(s), Oral, TID carvedilol 12.5 mg Tab, 12.5 mg= 1 tab(s), Oral, BID Entresto 24 mg-26 mg oral tablet, 1 tab(s), Oral, BID ICaps AREDS 2, See Instructions Misc Prescription, 0 One-A-Day Men's Health Formula, 1 tab(s), Oral, Daily spironolactone 25 mg Tab, See Instructions Vitamin D3 1000 intl units (25 mcg) Tab, 25 mcg= 1 tab(s), Oral, Daily warfarin 4 mg Tab, See Instructions Allergies No Known Medication Allergies Social History Tobacco Never (less than 100 in lifetime) Tobacco Use:. Never Smokeless Tobacco Use:. Household tobacco concerns: No., 09/06/2023 Family History Acute myocardial infarction: Mother. Heart disease: Mother. Leukemia: Father. Immunizations Vaccine Date Status influenza virus vaccine, inactivated 02/28/2023 Given pneumococcal 23-valent vaccine 04/12/2021 Recorded influenza virus vaccine, inactivated 04/12/2021 Recorded SARS-CoV-2 (COVID-19) mRNA BNT-162b2 vax 08/07/2020 Recorded SARS-CoV-2 (COVID-19) mRNA BNT-162b2 vax 07/18/2020 Recorded influenza virus vaccine, inactivated 02/20/2019 Recorded pneumococcal 13-valent vaccine 02/05/2019 Recorded Normal [facility] Comment on above: Result Comment: Elec tronically Signed By: Cong STEWART, Pete Bell.dana\Date and Time Signed: 09/06/23 11:24 EDT Patient Educationon 09-06-19 Patient Education Cardiovascular Atrial Fibrillation Atrial fibrillation is a type of irregular or rapid heartbeat (arrhythmia). In atrial fibrillation, the top part of the heart (atria) beats in an irregular pattern. This makes the heart unable to pump blood normally and effectively. The goal of treatment is to prevent blood clots from forming, control your heart rate, or restore your heartbeat to a normal rhythm. If this condition is not treated, it can cause serious problems, such as a weakened heart muscle (cardiomyopathy) or a stroke. What are the causes? This condition is often caused by medical conditions that damage the heart's electrical system. These include: ? High blood pressure (hypertension). This is the most common cause. ? Certain heart problems or conditions, such as heart failure, coronary artery disease, heart valve problems, or heart surgery. ? Diabetes. ? Overactive thyroid (hyperthyroidism). ? Obesity. ? Chronic kidney disease. In some cases, the cause of this condition is not known. What increases the risk? This condition is more likely to develop in: ? Older people. ? People who smoke. ? Athletes who do endurance exercise. ? People who have a family history of atrial fibrillation. ? Men. ? People who use drugs. ? People who drink a lot of alcohol. ? People who have lung conditions, such as emphysema, pneumonia, or COPD. ? People who have obstructive sleep apnea. What are the signs or symptoms? Symptoms of this condition include: ? A feeling that your heart is racing or beating irregularly. ? Discomfort or pain in your chest. ? Shortness of breath. ? Sudden light-headedness or weakness. ? Tiring easily during exercise or activity. ? Fatigue. ? Syncope (fainting). ? Sweating. In some cases, there are no symptoms. How is this diagnosed? Your health care provider may detect atrial fibrillation when taking your pulse. If detected, this condition may be diagnosed with: ? An electrocardiogram (ECG) to check electrical signals of the heart. ? An ambulatory vehicle monitor technician to record your heart's activity for a few days. ? A transthoracic echocardiogram (TTE) to create pictures of your heart. ? A transesophageal echocardiogram (PREETI) to create even closer pictures of your heart. ? A stress test to check your blood supply while you exercise. ? Imaging tests, such as a CT scan or chest X-ray. ? Blood tests. How is this treated? Treatment depends on underlying conditions and how you feel when you experience atrial fibrillation. This condition may be treated with: ? Medicines to prevent blood clots or to treat heart rate or heart rhythm problems. ? Electrical cardioversion to reset the heart's rhythm. ? A pacemaker to correct abnormal heart rhythm. ? Ablation to remove the heart tissue that sends abnormal signals. ? Left atrial appendage closure to seal the area where blood clots can form. In some cases, underlying conditions will be treated. Follow these instructions at home: Medicines ? Take over-the counter and prescription medicines only as told by your health care provider. ? Do not take any new medicines without talking to your health care provider. ? If you are taking blood thinners: ? Talk with your health care provider before you take any medicines that contain aspirin or NSAIDs, such as ibuprofen. These medicines increase your risk for dangerous bleeding. ? Take your medicine exactly as told, at the same time every day. ? Avoid activities that could cause injury or bruising, and follow instructions about how to prevent falls. ? Wear a medical alert bracelet or carry a card that lists what medicines you take. Lifestyle ? Do not use any products that contain nicotine or tobacco, such as cigarettes, e-cigarettes, and chewing tobacco. If you need help quitting, ask your health care provider. ? Eat heart-healthy foods. Talk with a dietitian to make an eating plan that is right for you. ? Exercise regularly as told by your health care provider. ? Do not drink alcohol. ? Lose weight if you are overweight. ? Do not use drugs, including cannabis. General instructions ? If you have obstructive sleep apnea, manage your condition as told by your health care provider. ? Do not use diet pills unless your health care provider approves. Diet pills can make heart problems worse. ? Keep all follow-up visits as told by your health care provider. This is important. Contact a health care provider if you: ? Notice a change in the rate, rhythm, or strength of your heartbeat. ? Are taking a blood thinner and you notice more bruising. ? Tire more easily when you exercise or do heavy work. ? Have a sudden change in weight. Get help right away if you have: ? Chest pain, abdominal pain, sweating, or weakness. ? Trouble breathing. (more content not included)... Normal [facility] Patient Education Nutrition BMI for Adults What [...] numbers. This can be done either in [place] or metric measurements. Note that charts and online BMI calculators are available to help you find your BMI quickly and easily without having to do these calculations yourself. To calculate your BMI in [place] measurements: 1. Measure your weight in [...] for Disease Control and Prevention: www.cdc.gov ? [place] Heart Association: www.heart.org ? National Heart, Lung, and Blood [place]: www.nhlbi.nih.gov Summary ? Body mass index (BMI) is a number that is calculated from a person's weight and height. ? BMI may help estimate how much of a person's weight is composed of fat. BMI can help identify those who may be at higher risk for certain medical problems. ? BMI can be measured using [place] measurements or metric measurements. ? BMI charts are used to identify whether you are underweight, normal weight, overweight, or obese. This information is not intended to replace advice given to you by your health care provider. Make sure you discuss any questions you have with your health care provider. Document Revised: 12/26/2019 Document Reviewed: 11/02/2019 [employer] Patient Education ? 2022 [employer] Normal [facility] Screenson 09-06-2023 Screens [id number] TIFF Normal [facility] Ambulatory Visit Summaryon 0 07-18-2023 Ambulatory Visit Summary BENNIE DENNIS :1945 Visit Date:07/18/2023 Ambulatory Visit Instructions Your Diagnosis Hypotension BMI 23.0-23.9, adult Non-smoker Your Care Team Attending Physician - Cary Brennan Primary Care Physician - Cong STEWART, Pete Hooker This Is Your Medications List atorvastatin (atorvastatin 80 mg Tab) balsalazide (balsalazide 750 mg oral capsule) carvedilol (carvedilol 12.5 mg Tab) multivitamin with minerals (ICaps AREDS 2) sacubitril-valsartan (Entresto 24 mg-26 mg oral tablet) spironolactone (spironolactone 25 mg Tab) warfarin (warfarin 4 mg Tab) Procedures Performed Cardiac catheter, Carotid endarterectomy, Colonoscopy. Discharge Vitals Heart Rate (Peripheral) 66 Respiratory Rate 18 Blood Pressure 104/58 Height 167.8 cm Height 66 in Weight 66.2 kg Weight 145.64 lb BMI 23.51 What to do next Scheduled Follow-Up Appointments Tuesday. 2023 10:45 AM EDT With: Cong STEWART, Pete Hooker Where: [facility] Normal [address] [place] [address] \.br\ Medications\.br \ What How Much When Instructions\.b r\ Unchanged atorvastatin (atorvastatin 80 mg Tab) 1 Tablets By Mouth Every day\.br\ Unchanged balsalazide (balsalazide 750 mg oral capsule) 3 Capsules By Mouth 3 times a day\.br\ Unchanged carvedilol (carvedilol 12.5 mg Tab) 1 Tablets By Mouth 2 times a day\.br\ Unchanged multivitamin with minerals (ICaps AREDS 2) See instructions take 1 orally twice a da \.br\ Unchanged sacubitril-vals ghulam (Entresto 24 mg-26 mg oral tablet) 1 Tablets By Mouth 2 times a day\.br\ Unchanged spironolactone (spironolactone 25 mg Tab) See instructions 1/ 2 tablet orally daily \.br\ Unchanged warfarin (warfarin 4 mg Tab) See instructions Take 4 mg orally on mondays, wednesdays and fridays and 8mg the other 4 days of the week \.br\ Allergies\.br\ No Known Medication Allergies\.br\ Problems\.br\ Ongoing - Any problem that you are currently receiving treatment for.\.br\ Adhesive capsulitis of shoulder\.br\ ASCVD (arteriosclerot ic cardiovascular disease)\.br\ DDD (degenerative disc disease), lumbar\.br\ Dehydration\.br \ Hemiparesis\.br \ Hx of arterial ischemic stroke\.br\ Hx of heart artery stent\.br\ Hypotension\.br \ Paroxysmal A-fib\.br\ Prostate disorder\.br\ Ulcerative colitis\.br\ Patient Survey\.br\ You may receive a survey via text or e-mail asking about your office visit. Please share your experience with us by completing your survey. We appreciate your feedback and thank you for choosing us for your care.\.br\ \.br\ [facility] Family Medicine Office/Clini c Noteon 07-18-2023 Family Medicine Office/Clinic Note HPI Staff Bennie is a 78 year old male presenting for 1 week follow up [place]ULL 07/13/23 hypotension due to dehydration 102/58 pt denies any dizziness or lightheadedness has tried to increase fluids History of Present Illness pt presents today for follow up on low BP. Review of Systems PHQ Score Initial Depression Screen Score: 0 SCORE Physical Exam Vitals & Measurements HR: 66(Peripheral) RR: 18 BP: 104/58 SpO2: 96% HT: 66 in HT: 167.8 cm WT: 66.2 kg WT: 145.64 lb BMI: 23.51 General: alert, no acute distress ENMT: oral mucosa moist, no pharyngeal erythema or exudate Cardiovascular: regular rate and rhythm, normal peripheral perfusion Respiratory: Lungs CTA, respirations non labored Extremities: no deformity, no trauma Neurological: oriented x 4, LOC appropriate for age, CN II-XII intact, motor strength equal & normal bilaterally, speech normal Assessment/Plan 1. Hypotension (I95.9: Hypotension, unspecified) BP is still on the low side. pt and both admit that he really didn't rehydrate as well as he should have. states he just doesn't stop to let himself heal. encouraged them to contact Dr. Taylor to let him know he has been running this low for a few weeks now. pt to return for follow up with Dr. Gar and will also schedule medicare wellness visit. 2. BMI 23.0-23.9, adult (Z68.23: Body mass index [BMI] 23.0-23.9, adult) BMI Eduction complete 3. Non-smoker (Z78.9: Other specified health status) continue not smoking Follow-up No qualifying data available Problem List/Past Medical History Ongoing Adhesive capsulitis of shoulder ASCVD (arteriosclerotic cardiovascular disease) DDD (degenerative disc disease), lumbar Dehydration Hemiparesis Hx of arterial ischemic stroke Hx of heart artery stent Hypotension Paroxysmal A-fib Prostate disorder Ulcerative colitis Historical No qualifying data Procedure/Surgical History Cardiac catheter, Carotid endarterectomy, Colonoscopy. Medications atorvastatin 80 mg Tab, 80 mg= 1 tab(s), Oral, Daily, 1 refills balsalazide 750 mg oral capsule, 2250 mg= 3 cap(s), Oral, TID carvedilol 12.5 mg Tab, 12.5 mg= 1 tab(s), Oral, BID Entresto 24 mg-26 mg oral tablet, 1 tab(s), Oral, BID ICaps AREDS 2, See Instructions spironolactone 25 mg Tab, See Instructions warfarin 4 mg Tab, See Instructions Allergies No Known Medication Allergies Social History Tobacco Never (less than 100 in lifetime) Tobacco Use:. Never Smokeless Tobacco Use:. Household tobacco concerns: No., 07/18/2023 Family History Acute myocardial infarction: Mother. Heart disease: Mother. Leukemia: Father. Immunizations Vaccine Date Status influenza virus vaccine, inactivated 02/28/2023 Given pneumococcal 23-valent vaccine 04/12/2021 Recorded influenza virus vaccine, inactivated 04/12/2021 Recorded SARS-CoV-2 (COVID-19) mRNA BNT-162b2 vax 08/07/2020 Recorded SARS-CoV-2 (COVID-19) mRNA BNT-162b2 vax 07/18/2020 Recorded influenza virus vaccine, inactivated 02/20/2019 Recorded pneumococcal 13-valent vaccine 02/05/2019 Recorded Normal [facility] Comment on above: Result Comment: Elec tronically Signed By: Cary Brennan\.br\Date and Time Signed: 07/18/23 13:52 EDT ED Note-Physicianon 07-13-19 24 ED Note-Physician [id number] Normal [facility] Family Medicine Office/Clini c Noteon 07-13-2023 Family Medicine Office/Clinic Note HPI Staff Bennie is a 77 year old male presenting for ER follow up Called [facility] med records 07/04 requested his ER records ER followup: Hospital: [place] Visit date: 06/21/23 Symptoms the patient presented with: diarrhea, dxed with dehydration did lab work, got an IV. no meds for home, push liquids Current concerns: wants to discuss his balsazide with you takes for ulcerative colitis flu: UTD 02/28/23 History of Present Illness Bennie Dennis is a 77-year-old male who presents for ER follow up. He is accompanied by an adult female. The patient was brought to the emergency room of [facility] on Tuesday morning, 07/05/2023, due to severe diarrhea that began on 07/04/2023. Despite the initial plan to visit the jr. systems administrator for new glasses, the patient insisted on returning home, experiencing a temporary halt in symptoms in the morning and afternoon. However, throughout the night, he was frequently in the bathroom, with symptoms occurring approximately every 5 minutes. The adult female, concerned about his hydration status, brought him to the emergency room. He was not admitted overnight. He is under the care of Dr. Jalloh of [place] for his ulcerative colitis. He expresses concern about his medication regimen, noting that after meals, he frequently needs to use the bathroom, a symptom that continues until the medication's effects subside. Despite the prescribed dosage of 3 times daily, he finds it difficult to adhere to this schedule. His bowel movements were not normal. The patient's blood pressure is slightly below normal levels. His oral fluid intake is limited, and the adult female has been encouraging him to increase his fluid consumption. After his hospital stay, he was consuming Gatorade and apple juice. Review of Systems PHQ Score Initial Depression Screen Score: 2 SCORE Physical Exam Vitals & Measurements T: 36.6 ?C(Temporal Artery) HR: 94(Peripheral) RR: 16 BP: 102/58 SpO2: 94% HT: 66 in HT: 167.8 cm WT: 66.5 kg WT: 146.3 lb BMI: 23.62 General: alert, no acute distress ENMT: oral mucosa moist, Cardiovascular: regular rate and rhythm, normal peripheral perfusion Respiratory: Lungs CTA, respirations non labored Extremities: no deformity, no trauma Neurological: oriented x 4, LOC appropriate for age, CN II-XII intact, motor strength equal & normal bilaterally, speech normal Abdomen: Soft, Nontender, Non-distended, + BS Assessment/Plan Total time spent preparing for the encounter, evaluating and assessing the patient, documenting the visit, and ordering appropriate follow-up work was 40 minutes. 1. Dehydration (E86.0: Dehydration) Requested records from the [facility]. The patient's blood pressure is still on the soft side. Because of this, I encouraged the patient to hydrate up and have a recheck in 1 week. The patient's blood pressure is usually in the 120s over 80s mmHg and that is not where it is today, so I encouraged the patient to follow up after hydration. 2. Paroxysmal A-fib (I48.0: Paroxysmal atrial fibrillation) No concerns at this time. 3. Hemiparesis (G81.90: Hemiplegia, unspecified affecting unspecified side) Stable. No change. 4. Ulcerative colitis (K51.90: Ulcerative colitis, unspecified, without complications) The patient is requesting information on one of his GI medications. I encouraged him to follow up with GI as this is a newer medication for me and I am unsure of other recommendations and how to use it. The patient will do that and give us a call and let us know if there is any change. 5. BMI 23.0-23.9, adult (Z68.23: Body mass index [BMI] 23.0-23.9, adult) BMI education given. 6. Nonsmoker (Z78.9: Other specified health status) I encouraged the patient not to smoke. Follow-up The patient will follow up in 1 week for a blood pressure check. Portions of this record may have been created with voice recognition artificial intelligence software, specifically [employer], [employer] and or [employer]. Substitutions may have occurred due to the inherent limitations of voice recognition and artificial intelligence software. ATTESTATION: Documentation services were performed after patient or guardian consented to allow 115 network disks to record this visit. SHAE radiator specialist and provider reviewed before signing. SHAE: Crystal Gambino. Follow-up No qualifying data available Problem List/Past Medical History Ongoing Adhesive capsulitis of shoulder ASCVD (arteriosclerotic cardiovascular disease) DDD (degenerative disc disease), lumbar Dehydration Hemiparesis Hx of arterial ischemic stroke Hx of heart artery stent Paroxysmal A-fib Prostate disorder Ulcerative colitis Historical No qualifying data Procedure/Surgical History Cardiac catheter, Carotid endarterectomy, Colonoscopy. Medications atorvastatin 80 mg Tab, 80 mg= 1 tab(s), Oral, Daily, 1 refills balsalazide 750 mg oral capsule, 2250 mg= (more content not included)... Normal [facility] Comment on above: Result Comment: Elec tronically Signed By: Pete Gar MD\.br\Date and Time Signed: 07/13/23 13:42 EDT\.br\Electronically Co-Signed By: Crystal Gambino\.br\Date and Time Co-Signed: 07/11/23 16:51 EDT Ambulatory Visit Summaryon 0 07-11-2023 Ambulatory Visit Summary BENNIE DENNIS :1945 Visit Date:07/11/2023 Ambulatory Visit Instructions Your Diagnosis Dehydration Paroxysmal A-fib Hemiparesis Ulcerative colitis BMI 23.0-23.9, adult Nonsmoker Your Care Team Attending Physician - Pete Gar MD Primary Care Physician - Pete Gar MD This Is Your Medications List Contact prescribing physician if questions or concerns atorvastatin (atorvastatin 80 mg Tab) balsalazide (balsalazide 750 mg oral capsule) carvedilol (carvedilol 12.5 mg Tab) multivitamin with minerals (ICaps AREDS 2) sacubitril-valsartan (Entresto 24 mg-26 mg oral tablet) spironolactone (spironolactone 25 mg Tab) warfarin (warfarin 4 mg Tab) Procedures Performed Cardiac catheter, Carotid endarterectomy, Colonoscopy. Discharge Vitals Temperature (Temporal Artery) 36.6 ?C Heart Rate (Peripheral) 94 Respiratory Rate 16 Blood Pressure 102/58 Height 167.8 cm Height 66 in Weight 66.5 kg Weight 146.3 lb BMI 23.62 What to do next Scheduled Follow-Up Appointments Tuesday 1:40 PM EDT With: Cary Brennan Where: [facility] [place] [address] [place] [address]- \.br\ Medications\.br \ What How Much When Instructions\.b r\ Unchanged atorvastatin (atorvastatin 80 mg Tab) 1 Tablets By Mouth Every day Contact prescribing physician if questions or concerns \.br\ Unchanged balsalazide (balsalazide 750 mg oral capsule) 3 Capsules By Mouth 3 times a day Contact prescribing physician if questions or concerns \.br\ Unchanged carvedilol (carvedilol 12.5 mg Tab) 1 Tablets By Mouth 2 times a day Contact prescribing physician if questions or concerns \.br\ Unchanged multivitamin with minerals (ICaps AREDS 2) See instructions take 1 orally twice a da Contact prescribing physician if questions or concerns \.br\ Unchanged sacubitril-vals ghulam (Entresto 24 mg-26 mg oral tablet) 1 Tablets By Mouth 2 times a day Contact prescribing physician if questions or concerns \.br\ Unchanged spironolactone (spironolactone 25 mg Tab) See instructions 1/ 2 tablet orally daily Contact prescribing physician if questions or concerns \.br\ Unchanged warfarin (warfarin 4 mg Tab) See instructions Take 4 mg orally on mondays, wednesdays and fridays and 8mg the other 4 days of the week Contact prescribing physician if questions or concerns \.br\ Allergies\.br\ No Known Medication Allergies\.br\ Problems\.br\ Ongoing - Any problem that you are currently receiving treatment for.\.br\ Adhesive capsulitis of shoulder\.br\ ASCVD (arteriosclerot ic cardiovascular disease)\.br\ DDD (degenerative disc disease), lumbar\.br\ Dehydration\.br \ Hemiparesis\.br \ Hx of arterial ischemic stroke\.br\ Hx of heart artery stent\.br\ Paroxysmal A-fib\.br\ Prostate disorder\.br\ Ulcerative colitis\.br\ Patient Survey\.br\ You may receive a survey via text or e-mail asking about your office visit. Please share your experience with us by completing your survey. We appreciate your feedback and thank you for choosing us for your care.\.br\ \.br\ [facility] Ambulatory Visit Summary BENNIE DENNIS :1945 Visit Date:07/11/2023 Ambulatory Visit Instructions Your Diagnosis Dehydration Paroxysmal A-fib Hemiparesis Ulcerative colitis BMI 23.0-23.9, adult Nonsmoker Your Care Team Attending Physician - Pete Gra MD Primary Care Physician - Pete Gar MD This Is Your Medications List Contact prescribing physician if questions or concerns atorvastatin (atorvastatin 80 mg Tab) balsalazide (balsalazide 750 mg oral capsule) carvedilol (carvedilol 12.5 mg Tab) multivitamin with minerals (ICaps AREDS 2) sacubitril-valsartan (Entresto 24 mg-26 mg oral tablet) spironolactone (spironolactone 25 mg Tab) warfarin (warfarin 4 mg Tab) Procedures Performed Cardiac catheter, Carotid endarterectomy, Colonoscopy. Discharge Vitals Temperature (Temporal Artery) 36.6 ?C Heart Rate (Peripheral) 94 Respiratory Rate 16 Blood Pressure 102/58 Height 167.8 cm Height 66 in Weight 66.5 kg Weight 146.3 lb BMI 23.62 What to do next Scheduled Follow-Up Appointments Tuesday 1:40 PM EDT With: Cary Brennan Where: [address] \.br\ Medications\.br \ What How Much When Instructions\.b r\ Unchanged atorvastatin (atorvastatin 80 mg Tab) 1 Tablets By Mouth Every day Contact prescribing physician if questions or concerns \.br\ Unchanged balsalazide (balsalazide 750 mg oral capsule) 3 Capsules By Mouth 3 times a day Contact prescribing physician if questions or concerns \.br\ Unchanged carvedilol (carvedilol 12.5 mg Tab) 1 Tablets By Mouth 2 times a day Contact prescribing physician if questions or concerns \.br\ Unchanged multivitamin with minerals (ICaps AREDS 2) See instructions take 1 orally twice a da Contact prescribing physician if questions or concerns \.br\ Unchanged sacubitril-vals ghulam (Entresto 24 mg-26 mg oral tablet) 1 Tablets By Mouth 2 times a day Contact prescribing physician if questions or concerns \.br\ Unchanged spironolactone (spironolactone 25 mg Tab) See instructions 1/ 2 tablet orally daily Contact prescribing physician if questions or concerns \.br\ Unchanged warfarin (warfarin 4 mg Tab) See instructions Take 4 mg orally on mondays, wednesdays and fridays and 8mg the other 4 days of the week Contact prescribing physician if questions or concerns \.br\ Allergies\.br\ No Known Medication Allergies\.br\ Problems\.br\ Ongoing - Any problem that you are currently receiving treatment for.\.br\ Adhesive capsulitis of shoulder\.br\ ASCVD (arteriosclerot ic cardiovascular disease)\.br\ DDD (degenerative disc disease), lumbar\.br\ Dehydration\.br \ Hemiparesis\.br \ Hx of arterial ischemic stroke\.br\ Hx of heart artery stent\.br\ Paroxysmal A-fib\.br\ Prostate disorder\.br\ Ulcerative colitis\.br\ Patient Survey\.br\ You may receive a survey via text or e-mail asking about your office visit. Please share your experience with us by completing your survey. We appreciate your feedback and thank you for choosing us for your care.\.br\ \.br\ [facility] ED Note-Physicianon 07-07-19 ED Note-Physician [id number] 30 [id number] Normal [facility] CHEMISTRYOrdered By: SYSTEM SYSTEM on 03-01-2023 Albumin [Mass/Vol] 4.1 g/dL Normal 3.3 - 5.0 gm/dL F [facility] Albumin/Globulin [Mass ratio] 1.2 {ratio} Normal 1.1 - 2.2 [facility] ALP [Catalytic activity/Vol] 91 [iU]/d Normal 21 - 98 Int._Unit/L [facility] ALT No additional P-5'-P [Catalytic activity/Vol] 20 [iU]/d Normal 6 - 46 Int._Unit/L [facility] Anion gap [Moles/Vol] 12 mmol/L Normal 6 - 16 mEq/L [facility] AST [Catalytic activity/Vol] 43 [iU]/d Normal 5 - 43 Int._Unit/L [facility] Bilirubin [Mass/Vol] 0.8 mg/dL Normal 0.0 - 1.1 mg/dL [facility] Calcium [Mass/Vol] 9.3 mg/dL Normal 8.9 - 11. 1 mg/dL [facility] Chloride [Moles/Vol] 103 mmol/L Normal 101 - 1 11 mmol/L [facility] Cholesterol [Mass/Vol] 154 mg/dL Normal 120 - 200 mg/ dL [facility] Cholesterol in HDL [Mass/Vol] 47 mg/dL Invalid Interpretation Code [facility] Comment on above: Interpretive Data: H DL > or equal to 60 mg/dL: Low cardiovascular risk HDL < 40 mg/dL : High cardiovascular risk Cholesterol in LDL [Mass/Vol] 87 mg/dL Normal <=129mg/dL [facility] Cholesterol in VLDL [Mass/Vol] 19 mg/dL Normal 7 - 40 mg/dL [facility] CO2 [Moles/Vol] 28 mmol/L Normal 21 - 31 mmol/L [facility] Creatinine [Mass/Vol] 0.9 mg/dL Normal 0.5 - 1.3 mg/d L [facility] GFR/1.73 sq M.predicted among non-blacks MDRD (S/P/Bld) [Vol rate/Area] 89 mL/min/1.73 m2 Normal >=59mL/min/1.73 m2 [facility] Chem S Comment on above: Interpretive Data: C hronic kidney disease could be indicated at eGFR's of less than 60 mL/min/1.73m2. Kidney failure is indicated at less than 15 mL/min/1.73m2. Globulin (S) [Mass/Vol] 3.5 g/dL Normal 1.4 - 4.0 gm/dL [facility] Glucose [Mass/Vol] 93 mg/dL Normal 55 - 199 mg/dL [facility] Comment on above: Interpretive Data: I f this glucose result represents a fasting glucose, interpretation should refer to the following reference range: 55-99 mg/dL Potassium [Moles/Vol] 4.5 mmol/L Normal 3.5 - 5.3 mmol/L [facility] Prostate specific Ag [Mass/Vol] 0.5 ng/mL Normal 0.1 - 3.5 ng/mL [facility] Comment on above: Interpretive Data: T he concentration of PSA determined by different manufacturers can vary due to differences in assay methods and reagent specificity. Values obtained from different assay methods cannot be used interchangeably. The methodology used for this result was chemiluminescence using [employer]'s Access Hybritech PSA reagent. Protein [Mass/Vol] 7.6 g/dL Normal 6.0 - 7.8 gm/dL [facility] Sodium [Moles/Vol] 138 mmol/L Normal 135 - 145 mmol/L [facility] Triglyceride [Mass/Vol] 97 mg/dL Normal <=149mg/dL [facility] Urea nitrogen [Mass/Vol] 19 mg/dL Normal 5 - 21 mg/dL [facility] Urea nitrogen/Creatinine [Mass ratio] 21 mg/mg High 10 - 20 [facility] HEMATOLOGYOrdered By: SYSTEM SYSTEM on 03-01-2023 Basophils/100 WBC (Bld) 0.9 % Normal 0.0 - 2.0 % [facility]eAutoSS Basophils/Leukocytes Auto (Bld) [Pure # fraction] 0.1 E9/L Normal 0.0 - 0.2 E9/L [facility]eAutoSS Eosinophils/100 WBC (Bld) 3.8 % Normal 0.0 - 8.0 % [facility]eAutoSS Eosinophils/Leukocytes Auto (Bld) [Pure # fraction] 0.3 E9/L Normal 0.0 - 0.5 E9/L [facility]eAutoSS Lymphocytes/100 WBC (Bld) 22.4 % Normal 14.0 - 50.0 % [facility]eAutoSS Lymphocytes/Leukocytes Auto (Bld) [Pure # fraction] 1.6 E9/L Normal 1.0 - 4.0 E9/L [facility]eAutoSS Monocytes/100 WBC (Bld) 9.1 % Normal 4.0 - 14.0 % [facility]eAutoSS Monocytes/Leukocytes Auto (Bld) [Pure # fraction] 0.6 E9/L Normal 0.2 - 1.0 E9/L [facility]Auto[facility] Neutrophils/100 WBC (Bld) 63.8 % Normal 36.0 - 75.0 % [facility]eAutoSS Neutrophils/Leukocytes Auto (Bld) [Pure # fraction] 4.5 E9/L Normal 2.0 - 7.5 E9/L [facility]eAutoSS HEMATOLOGYOrdered By: Nyasia Escalona on 03-01-2023 Erythrocyte distribution width (RBC) [Ratio] 13.9 % Normal 10.9 - 14.2 % [facility] HemeAutoSS Hematocrit (Bld) [Volume fraction] 40.4 % Normal 37.7 - 49.0 % [facility] Hemoglobin (Bld) [Mass/Vol] 13.4 g/dL Low 13.5 - 17.5 gm/dL [facility] MCH (RBC) [Entitic mass] 31.0 pg Normal 27.0 - 34.0 pg [facility]eAutoSS MCHC (RBC) [Mass/Vol] 33.3 g/dL Normal [...] 7.1 E9/L Normal 4.0 - 11.0 E9/L [facility] HemeAutoSS CBC AUTO DIFFon 07-20-2022 BASO # 0.1 103/ul Normal 0.0-0.[address] [facility] Comment on above: Performed By: #### C BC #### [facility] [address] [place] [address] Dr. Kj Dunn Basophils/100 WBC (Bld) 0.9 % Normal 0.2-2.[address] [facility] Comment on above: Performed By: #### C BC #### [facility] [address] [place] [address] Dr. Kj Dunn EO # 0.2 103/ul Normal 0.0-0.[address] [facility] Comment on above: Performed By: #### C BC #### [facility] [address] [place] [address] Dr. Kj Dunn Eosinophils/100 WBC (Bld) 3.1 % Normal 0.9-7.[address] [facility] Comment on above: Performed By: #### C BC #### [facility] [address] [place] [address] Dr. Kj Dnun Erythrocyte distribution width (RBC) [Ratio] 13.3 % Normal 11.0-15.[address] [facility] Comment on above: Performed By: #### C BC #### [facility] [address] [place] [address] Dr. Kj Dunn Hematocrit (Bld) [Volume fraction] 39.2 % Critically low 42.0-54.[address] [facility] Comment on above: Performed By: #### C BC #### [facility] [address] [place] [address] Dr. Kj Dunn Hemoglobin (Bld) [Mass/Vol] 13.0 g/dL Critically low 14.0-18.[address] [facility] Comment on above: Performed By: #### C BC #### [facility] [address] [place] [address] Dr. Kj Dunn IG # 0.02 10e3/ul Normal 0.00-0.[address] [facility] Comment on above: Performed By: #### C BC #### [facility] [address] [place] [address] Dr. Kj Dunn IG % 0.3 % Normal 0.0-0.[address] [facility] Comment on above: Performed By: #### C BC #### [facility] [address] [place] [address] Dr. Kj Dunn LYMPH # 2.7 103/ul Normal 1.2-3.[address] [facility] Comment on above: Performed By: #### C BC #### [facility] [address] [place] [address] Dr. Kj Dunn Lymphocytes/100 WBC (Bld) 38.8 % Normal 20.5-60.[address] [facility] Comment on above: Performed By: #### C BC #### [facility] [address] [place] [address] Dr. Kj Dunn MANUAL DIFF REQ NO Normal [facility] Comment on above: Performed By: #### C BC #### [facility] [address] [place] [address] Dr. Kj Dunn MCH (RBC) [Entitic mass] 31.0 pg Normal 25.9-34.[address] [facility] Comment on above: Performed By: #### C BC #### [facility] [address] [place] [address] Dr. Kj Dunn MCHC (RBC) [Mass/Vol] 33.2 g/dL Normal 29.9-35.[address] [facility] Comment on above: Performed By: #### C BC #### [facility] [address] [place] [address] Dr. Kj Dunn MCV (RBC) [Entitic vol] 93.3 fL Normal 80.0-94.[address] [facility] Comment on above: Performed By: #### C BC #### [facility] [address] [place] [address] Dr. Kj Dunn MONO # 0.5 103/ul Normal 0.3-0.[address] [facility] Comment on above: Performed By: #### C BC #### [facility] [address] [place] [address] Dr. Kj Dunn Monocytes/100 WBC (Bld) 7.5 % Normal 1.7-12.[address] [facility] Comment on above: Performed By: #### C BC #### [facility] [address] [place] [address] Dr. Kj Dunn NEUT # 3.4 103/ul Normal 1.4-6.[address] [facility] Comment on above: Performed By: #### C BC #### [facility] [address] [place] [address] Dr. Kj Dunn Neutrophils/100 WBC (Bld) 49.4 % Normal 43.0-75.[address] [facility] Comment on above: Performed By: #### C BC #### [facility] [address] [place] [address] Dr. Kj Dunn Platelet mean volume (Bld) [Entitic vol] 10.1 fL Normal 9.5-13.[address] [facility] Comment on above: Performed By: #### C BC #### [facility] [address] [place] [address] Dr. Kj Dunn PLT 248 103/ul Normal 150-[address] [facility] Comment on above: Performed By: #### C BC #### [facility] [address] [place] [address] Dr. Kj Dunn RBC 4.20 106/ul Critically low 4.70-6.[address] [facility] Comment on above: Performed By: #### C BC #### [facility] [address] [place] [address] Dr. Kj Dunn WBC 6.8 103/ul Normal 4.0-11.[address] [facility] Comment on above: Performed By: #### C BC #### [facility] [address] [place] [address] Dr. Kj Dunn PROF CHEM 8 (BAS METB)on Anion gap [Moles/Vol] 9.8 mmol/L Normal [facility] Comment on above: Performed By: #### B MP #### [facility] [address] [place] [address] Dr. Kj Dunn Calcium [Mass/Vol] 9.2 mg/dL Normal 8.5-10.[address] [facility] Comment on above: Performed By: #### B MP #### [facility] [address] [place] [address] Dr. Kj Dunn Chloride [Moles/Vol] 104 mmol/L Normal 98-[address] [facility] Comment on above: Performed By: #### B MP #### [facility] [address] [place] [address] Dr. Kj Dunn CO2 [Moles/Vol] 30.7 mmol/L Normal 21.0-32.[address] [facility] Comment on above: Performed By: #### B MP #### [facility] [address] [place] [address] Dr. Kj Dunn Creatinine [Mass/Vol] 0.98 mg/dL Normal 0.70-1.30 [facility] Comment on above: Performed By: #### B MP #### [facility] [address] [address] [address] Kj Dunn EGFR-AF SWISS >60 Normal >=[address] [facility] Comment on above: Performed By: #### B MP #### [facility] [address] [place] [address] Dr. Kj Dunn EGFR-NON AF SWISS >60 Normal >=[address] [facility] Comment on above: Performed By: #### B MP #### [facility] [address] [address] [address] Kj Dunn Glucose [Mass/Vol] 99 mg/dL Normal 74-[address] [facility] Comment on above: Performed By: #### B MP #### [facility] [address] [place] [address] Dr. Kj Dunn Potassium [Moles/Vol] 4.5 mmol/L Normal 3.5-5.[address] [facility] Comment on above: Performed By: #### B MP #### [facility] [address] [place] [address] Dr. Kj Dunn Sodium [Moles/Vol] 140 mmol/L Normal 136-[address] [facility] Comment on above: Performed By: #### B MP #### [facility] [address] [place] [address] Dr. Kj Dunn Urea nitrogen [Mass/Vol] 24.0 mg/dL Critically high 7.0-18.[address] [facility] Comment on above: Performed By: #### B MP #### [facility] [address] [place] [address] Dr. Kj Dunn Urea nitrogen/Creatinine [Mass ratio] 24.5 mg/mg Normal [facility] Comment on above: Performed By: #### B MP #### [facility] [address] [place] [address] Dr. Kj Dunn Basophils Auto (Bld) [#/Vol] Ordered By: Sebas Jalloh on 06-30-2022 Basophils (Bld) [#/Vol] 0.1 10*3/uL 0.0-0.2 [facility] Basophils/100 WBC Auto (Bld) Ordered By: Sebas Jalloh on 06-30-2022 Basophils/100 WBC (Bld) 0.7 % . [facility] Eosinophils Auto (Bld) [#/Vo l]Ordered By: Sebas Jalloh on 06-30-2022 Eosinophils (Bld) [#/Vol] 0.1 10*3/uL 0.0-0.45 [facility] Eosinophils/100 WBC Auto (Bl d)Ordered By: Sebas Jalloh on 06-30-2022 Eosinophils/100 WBC (Bld) 1.8 % . [facility] Erythrocyte distribution wid th Auto (RBC) [Ratio]Ordered By: Sebas Jalloh on 06-30-2022 Erythrocyte distribution width (RBC) [Ratio] 13.8 % 12.0-14.8 [facility] Hematocrit Auto (Bld) [Volum e fraction]Ordered By: Sebas Jalloh on 06-30-2022 Hematocrit (Bld) [Volume fraction] 39.6 % 38.8-50.0 [facility] Hemoglobin [Mass/volume] in BloodOrdered By: Sebas Jalloh on 06-30-2022 Hemoglobin (Bld) [Mass/Vol] 13.6 g/dL 13.0-17.0 [facility] Leukocytes [#/volume] correc jung for nucleated erythrocytes in Blood by Automated counOrdered By: Sebas Jalloh on 06-30-2022 WBC corrected for nucl RBC Auto (Bld) [#/Vol] 8.0 10*3/uL 4.1-10.5 [facility] Lymphocytes Auto (Bld) [#/Vo l]Ordered By: Sebas Jalloh on 06-30-2022 Lymphocytes (Bld) [#/Vol] 2.5 10*3/uL 1.00-4.8 [facility] Lymphocytes/100 WBC Auto (Bl d)Ordered By: Sebas Jalloh on 06-30-2022 Lymphocytes/100 WBC (Bld) 30.5 % . [facility] MCH Auto (RBC) [Entitic mass ]Ordered By: Sebas Jalloh on 06-30-2022 MCH (RBC) [Entitic mass] 31.5 pg 27.5-35.2 [facility] MCHC Auto (RBC) [Mass/Vol]Or dered By: Sebas Jalloh on 06-30-2022 MCHC (RBC) [Mass/Vol] 34.4 g/dL 32.5-35.6 [facility] MCV Auto (RBC) [Entitic vol] Ordered By: Sebas Jalloh on 06-30-2022 MCV (RBC) [Entitic vol] 91.4 fL 83.5-101 [facility] Monocytes Auto (Bld) [#/Vol] Ordered By: Sebas Jalloh on 06-30-2022 Monocytes (Bld) [#/Vol] 0.5 10*3/uL 0.0-0.8 [facility] Monocytes/100 WBC Auto (Bld) Ordered By: Sebas Jalloh on 06-30-2022 Monocytes/100 WBC (Bld) 6.4 % . [facility] Neutrophils Auto (Bld) [#/Vo l]Ordered By: Sebas Jalloh on 06-30-2022 Neutrophils (Bld) [#/Vol] 4.9 10*3/uL 1.8-7.7 [facility] Neutrophils/100 WBC Auto (Bl d)Ordered By: Sebas Jalloh on 06-30-2022 Neutrophils/100 WBC (Bld) 60.6 % . [facility] Nucleated erythrocytes [Pres ence] in Blood by Automated countOrdered By: Sebas Jalloh on 06-30-2022 Nucleated RBC Auto Ql (Bld) 0.1 /100{WBC} 0-0.5 [facility] Platelet mean volume Auto (B ld) [Entitic vol]Ordered By: Sebas Jalloh on 06-30-2022 Platelet mean volume (Bld) [Entitic vol] 8.2 fL 6.6-10.1 [facility] Platelets Auto (Bld) [#/Vol] Ordered By: Sebas Jalloh on 06-30-2022 Platelets (Bld) [#/Vol] 246 10*3/uL 150-450 [facility] RBC Auto (Bld) [#/Vol]Ordere d By: Sebas Jalloh on 06-30-2022 RBC (Bld) [#/Vol] 4.34 10*6/uL 3.90-5.60 [facility] WBC Auto (Bld) [#/Vol]Ordere d By: Sebas Jalloh on 06-30-2022 WBC (Bld) [#/Vol] 8.0 10*3/uL 4.1-10.5 [facility] Vital Signs Date Time Vital Sign Value Performing Clinician Facility 08-01-2024 09:48-0400 Heart rate 75 /min takokatkiara [employer] [facility] 08-01-2024 09:48-0400 SaO2% (BldA) [Mass fraction] 97 % takokatkiara [employer] [facility] 08-01-2024 09:48-0400 Blood Pressure Location takokatkiara [employer] [facility] 08-01-2024 09:48-0400 Respiratory rate 20 /min takokatkiara [employer] [facility] 08-01-2024 09:48-0400 Body temperature 97.34 [degF] takokatd [employer] [facility] 08-01-2024 09:47-0400 Diastolic blood pressure 74 mm[Hg] takokatkiara [employer] [facility] 08-01-2024 09:47-0400 Mean blood pressure 87 mm[Hg] takokatkiara [employer] [facility] 08-01-2024 09:47-0400 Systolic blood pressure 114 mm[Hg] takokatd [employer] [facility] 06-07-2024 10:11-0500 Blood Pressure Location SWETHA COLLIER [facility] 06-07-2024 10:11-0500 Body temperature 98.6 [degF] SWETHA NANDO [facility] 06-07-2024 10:11-0500 Diastolic blood pressure 68 mm[Hg] SWETHA NANDO [facility] 06-07-2024 10:11-0500 Heart rate 56 /min SWETHA NANDO [facility] 06-07-2024 10:11-0500 Respiratory rate 16 /min SWETHA NANDO [facility] 06-07-2024 10:11-0500 Systolic blood pressure 96 mm[Hg] SWETHA NANDO [facility] 06-01-2024 11:15-0500 Diastolic blood pressure 50 mm[Hg] Bashar At[place] [facility] 06-01-2024 11:15-0500 Mean blood pressure 59 mm[Hg] Bashar [place] [facility] 06-01-2024 11:15-0500 Systolic blood pressure 76 mm[Hg] Bashar [place] [facility] 06-01-2024 11:00-0500 Diastolic blood pressure 44 mm[Hg] Bashar [place] [facility] 06-01-2024 11:00-0500 Heart rate 78 /min Bashar [place] [facility] 06-01-2024 11:00-0500 SaO2% (BldA) [Mass fraction] 98 % Bashar [place] [facility] 06-01-2024 11:00-0500 Systolic blood pressure 70 mm[Hg] Pooja Stephens [facility] 06-01-2024 09:33-0500 Blood Pressure Location Eloisa Hassan [facility] 06-01-2024 09:33-0500 Diastolic blood pressure 41 mm[Hg] Manavkiara Evelioallyson [facility] 06-01-2024 09:33-0500 Heart rate 86 /min Manavkiara Evelioallyson [facility] 06-01-2024 09:33-0500 Respiratory rate 14 /min Manavkiara Hassan [facility] 06-01-2024 09:33-0500 Systolic blood pressure 68 mm[Hg] Manavkiara Evelioallyson [facility] 05-23-2024 16:00-0500 Diastolic blood pressure 58 mm[Hg] [facility] 05-23-2024 16:00-0500 Heart rate 92 /min [facility] 05-23-2024 16:00-0500 Respiratory rate 16 /min [facility] 05-23-2024 16:00-0500 SaO2% (BldA) [Mass fraction] 93 % [facility] 05-23-2024 16:00-0500 Systolic blood pressure 113 mm[Hg] [facility] 05-23-2024 10:56-0500 Body temperature 97.8 [degF] [facility] 05-23-2024 10:53-0500 Body height 172.72 cm [facility] 05-23-2024 10:53-0500 Body weight 61.23 kg [facility] 05-14-2024 14:32-0500 Hourly Rounding Pan Gar [facility] 05-14-2024 14:32-0500 Promise to Return Pan Paster [facility] 05-14-2024 13:00-0500 Hourly Rounding Pan Paster [facility] 05-14-2024 13:00-0500 Promise to Return Pan Paster [facility] 05-14-2024 12:00-0500 Hourly Rounding Pan Paster [facility] 05-14-2024 12:00-0500 Promise to Return Pan Paster [facility] 05-14-2024 11:00-0500 Blood Pressure Location Pan Paster [facility] 05-14-2024 11:00-0500 Diastolic blood pressure 77 mm[Hg] Pan Paster [facility] 05-14-2024 11:00-0500 Heart rate 98 /min Pan Paster [facility] 05-14-2024 11:00-0500 Respiratory rate 18 /min Pan Paster [facility] 05-14-2024 11:00-0500 SaO2% (BldA) [Mass fraction] 92 % Pan Paster [facility] 05-14-2024 11:00-0500 Systolic blood pressure 124 mm[Hg] Pan Paster [facility] 05-14-2024 08:00-0500 Body temperature 98.24 [degF] Pan Paster [facility] 05-14-2024 08:00-0500 Heart rate 92 /min Pan Paster [facility] 05-14-2024 08:00-0500 SaO2% (BldA) [Mass fraction] 90 % Pan Paster [facility] 05-14-2024 08:00-0500 Systolic blood pressure 132 mm[Hg] Pan Paster [facility] 05-14-2024 06:15-0500 Heart rate 90 /min Pan Paster [facility] 05-14-2024 06:14-0500 Diastolic blood pressure 69 mm[Hg] Pan Paster [facility] 05-14-2024 06:14-0500 Mean blood pressure 85 mm[Hg] Pan Paster [facility] 05-14-2024 06:14-0500 Systolic blood pressure 118 mm[Hg] Pan Paster [facility] 05-14-2024 06:13-0500 Body temperature 97.34 [degF] Pan Paster [facility] 05-14-2024 06:00-0500 Respiratory rate 16 /min Pan Paster [facility] 05-14-2024 05:25-0500 Body temperature 97.7 [degF] Pan Paster [facility] 05-14-2024 05:25-0500 Heart rate 99 /min Pan Paster [facility] 05-14-2024 05:25-0500 Mean blood pressure 91 mm[Hg] Pan Paster [facility] 05-14-2024 01:40-0500 Body temperature 97.7 [degF] Pan Paster [facility] 05-14-2024 01:40-0500 Heart rate 94 /min Pan Paster [facility] 05-14-2024 01:40-0500 Mean blood pressure 82 mm[Hg] Pan Paster [facility] 05-13-2024 21:19-0500 Mean blood pressure 85 mm[Hg] Pan Paster [facility] 05-13-2024 21:18-0500 Body temperature 97.88 [degF] Pan Paster [facility] 05-13-2024 16:58-0500 Mean blood pressure 90 mm[Hg] Pan Paster [facility] 05-13-2024 05:10-0500 Mean blood pressure 86 mm[Hg] Pan Paster [facility] 05-12-2024 06:10-0500 Respiratory rate 16 /min Pan Paster [facility] 05-12-2024 00:10-0500 Respiratory rate 16 /min Pan Paster [facility] 05-11-2024 13:55-0500 Body temperature 97.7 [degF] Pan Paster [facility] 05-11-2024 13:55-0500 Respiratory rate 18 /min Pan Paster [facility] 05-11-2024 13:30-0500 Body temperature 98.24 [degF] Pan Paster [facility] 05-11-2024 12:44-0500 Body temperature 98.24 [degF] Pan Paster [facility] 05-11-2024 00:29-0500 Heart rate 86 /min Pan Paster [facility] 05-06-2024 11:08-0500 SaO2% (BldA) [Mass fraction] 81.1 % Pan Paster [facility] Resp Auto SS 05-03-2024 15:48-0500 Heart rate 89 /min Eloisa Hassan [facility] 05-03-2024 15:48-0500 SaO2% (BldA) [Mass fraction] 90 % Mohamad Mouchli [facility] 05-03-2024 15:47-0500 Respiratory rate 18 /min Mohamad Mouchli [facility] 05-03-2024 15:47-0500 Blood Pressure Location Mohamad Mouchli [facility] 05-03-2024 15:47-0500 Diastolic blood pressure 68 mm[Hg] Mohamad Mouchli [facility] 05-03-2024 15:47-0500 Mean blood pressure 80 mm[Hg] Mohamad Mouchli [facility] 05-03-2024 15:47-0500 Systolic blood pressure 104 mm[Hg] Mohamad Mouchli [facility] 05-03-2024 13:41-0500 Heart rate 96 /min Mohamad Mouchli [facility] 05-03-2024 13:41-0500 SaO2% (BldA) [Mass fraction] 91 % Mohamad Mouchli [facility] 05-03-2024 13:39-0500 Body temperature 98.6 [degF] Mohamad Mouchli [facility] 05-03-2024 13:39-0500 Diastolic blood pressure 63 mm[Hg] Mohamad Mouchli [facility] 05-03-2024 13:39-0500 Mean blood pressure 74 mm[Hg] Mohamad Mouchli [facility] 05-03-2024 13:39-0500 Systolic blood pressure 96 mm[Hg] Mohamad Mouchli [facility] 05-01-2024 10:12-0500 Blood Pressure Location Mohamad Mouchli [facility] 05-01-2024 10:12-0500 Diastolic blood pressure 74 mm[Hg] Mohamad Mouchli [facility] 05-01-2024 10:12-0500 Heart rate 76 /min Mohamad Mouchli [facility] 05-01-2024 10:12-0500 Systolic blood pressure 111 mm[Hg] Mohamad Mouchli [facility] 04-02-2024 13:36-0500 Diastolic blood pressure 63 mm[Hg] Mohamad Mouchli [facility] 04-02-2024 13:36-0500 Heart rate 67 /min Mohamad Mouchli [facility] 04-02-2024 13:36-0500 Systolic blood pressure 95 mm[Hg] Mohamad Mouchli [facility] 04-02-2024 13:34-0500 Blood Pressure Location Mohamad Mouchli [facility] 04-02-2024 13:34-0500 Respiratory rate 16 /min Mohamad Mouchli [facility] 03-29-2024 15:30-0500 Diastolic blood pressure 49 mm[Hg] [facility] 03-29-2024 15:30-0500 Heart rate 79 /min [facility] 03-29-2024 15:30-0500 Mean blood pressure 67 mm[Hg] [facility] 03-29-2024 15:30-0500 Respiratory rate 18 /min [facility] 03-29-2024 15:30-0500 SaO2% (BldA) [Mass fraction] 95 % [facility] 03-29-2024 15:30-0500 Systolic blood pressure 103 mm[Hg] [facility] 03-29-2024 14:29-0500 Body temperature 97.52 [degF] [facility] 03-29-2024 14:29-0500 Diastolic blood pressure 61 mm[Hg] [facility] 03-29-2024 14:29-0500 Heart rate 86 /min [facility] 03-29-2024 14:29-0500 Respiratory rate 18 /min [facility] 03-29-2024 14:29-0500 SaO2% (BldA) [Mass fraction] 95 % [facility] 03-29-2024 14:29-0500 Systolic blood pressure 108 mm[Hg] [facility] 03-21-2024 14:23-0500 Blood Pressure Location Eloisa Hassan [facility] 03-21-2024 14:23-0500 Diastolic blood pressure 80 mm[Hg] Eloisa Hassan [facility] 03-21-2024 14:23-0500 Heart rate 65 /min Eloisa Hassan [facility] 03-21-2024 14:23-0500 Respiratory rate 16 /min Eloisa Hassan [facility] 03-21-2024 14:23-0500 Systolic blood pressure 131 mm[Hg] Eloisa Hassan [facility] 06-30-2022 12:11-0400 Diastolic blood pressure 74 mm[Hg] MD Donato Robin Work Phone: [facility] 06-30-2022 12:11-0400 Heart rate 71 /min MD Donato Robin Work Phone: [facility] 06-30-2022 12:11-0400 Respiratory rate 18 /min MD Donato Robin Work Phone: [facility] 06-30-2022 12:11-0400 SaO2% (BldA) [Mass fraction] 97 % MD Donato Robin Work Phone: [facility] 06-30-2022 12:11-0400 Systolic blood pressure 133 mm[Hg] MD Donato Robin Work Phone: [facility] 06-30-2022 10:57-0400 Body height 175.26 cm MD Donato Robin Work Phone: [facility] 06-30-2022 10:57-0400 Body weight 68.03 kg MD Donato Robin Work Phone: [facility] 06-14-2022 10:30-0500 Body height 175.26 cm Sebas Jalloh Other [employer] [facility] [employer] Other 06-14-2022 10:30-0500 Body mass index (BMI) [Ratio] 22.15 kg/m2 Sebas Jalloh Other [employer] Other 06-14-2022 10:30-0500 Body weight 68.04 kg Sebas Jalloh Other [employer] Other 06-14-2022 10:30-0500 Diastolic blood pressure 78 mm[Hg] Sebas Jalloh Other [employer] Other 06-14-2022 10:30-0500 Systolic blood pressure 112 mm[Hg] Sebas Jalloh Other [employer] Other 02-17-2021 10:45-0400 Body height 175.26 cm Sebas Jalloh Other [employer] Other 02-17-2021 10:45-0400 Body mass index (BMI) [Ratio] 21.85 kg/m2 Sebas Jalloh Other [employer] Other 02-17-2021 10:45-0400 Body weight 67.13 kg Sebas Jalloh Other [employer] Other Encounters Encounter Date Encounter Type Care Provider Facility Start: 01-01-2025 ambulatory Pete Gar Facility :[facility] Start: 12-07-2024 ambulatory SWETHA Nevarez ty: Marcela Start: 11-21-2024 ambulatory Pete Gar Facility :[facility] [place] Start: 10-16-2024 [facility] Start: 10-04-2024 ambulatory Eloisa Hassan Faci lity:[facility] Start: 08-30-2024 End: 08-30-2024 ambulatory Pete Gar Facility:[facility] Marilu zurita Start: 08-07-2024 End: 08-07-2024 ambulatory [facility] Start: 08-01-2024 End: 08-01-2024 ambulatory Eloisa Hassan Facility:[facility] Start: 08-01-2024 End: 08-01-2024 Patient encounter procedure Eloisa Hassan [facility] Start: 07-11-2024 End: 2024 ambulatory Bashar X [place] Facility:[facility] Start: 07-11-2024 End: 2024 Patient encounter procedure Bashar X [place] [facility] Start: 07-06-2024 End: 07-07-2024 ambulatory Eloisa Hassan Facility:[facility] Start: 07-05-2024 End: 07-06-2024 ambulatory Eloisa Hassan Facility:[facility] Start: 07-05-2024 End: 07-06-2024 Patient encounter procedure Eloisa Hassan [facility] Start: 07-05-2024 End: 07-05-2024 [facility]ulatory [facility] Start: 06-07-2024 [facility]ulatory [facility] Start: 06-07-2024 End: 06-07-2024 ambulatory PA-C SWETHA COLLIER Facility:[facility] Start: 06-07-2024 End: 06-07-2024 Patient encounter procedure SWETHA COLLIER [facility] Start: 06-01-2024 End: 06-01-2024 ambulatory [facility] Start: 06-01-2024 End: 06-01-2024 Patient encounter procedure Eloisa Hassan [facility] Start: 05-28-2024 End: 05-28-2024 ambulatory [facility] Start: 05-24-2024 End: 05-24-2024 ambulatory Pete Gar Facility:[facility] Marilu zurita Start: 05-23-2024 End: 05-23-2024 Emergency department patient visit [facility] Work Phone: Start: 05-15-2024 End: 05-25-2024 ambulatory Pete Gar Facility:[id number] Start: 05-06-2024 End: 05-14-2024 Evaluation and management of inpatient Pan Gar Facility:[facility] Start: 05-06-2024 Emergency department patient visit Vicente Flanagan Facility:[facility] Start: 05-06-2024 End: 05-14-2024 Evaluation and management of inpatient Pan Gar [facility] Start: 05-03-2024 End: 05-03-2024 ambulatory Eloisa Hassan Facility:[facility] Start: 05-03-2024 End: 05-03-2024 Patient encounter procedure Eloisa Hassan [facility] Start: 05-01-2024 End: 05-01-2024 [facility]ulatory [facility] Start: 05-01-2024 End: 05-01-2024 Patient encounter procedure Eloisa Hassan [facility] Start: 04-04-2024 End: 04-04-2024 ambulatory Eloisa Hassan Facility:[facility] Start: 04-04-2024 End: 04-04-2024 Lab Drop off Eloisa Sheridan. Brendenli [facility] Start: 04-02-2024 End: 04-02-2024 ambulatory Mohparvind Jonatan [facility]son [facility] Start: 04-02-2024 End: 04-02-2024 Patient encounter procedure Eloisa Hassan [facility] Start: 03-29-2024 End: 03-29-2024 Emergency department patient visit Rima Anthony [facility] Start: 03-28-2024 End: 03-28-2024 ambulatory Eloisa Hassan Facility:[facility] Start: 03-21-2024 End: 03-21-2024 ambulatory Pete Gar Facility:[facility] Start: 03-21-2024 End: 03-21-2024 Patient encounter procedure Eloisa Hassan [facility] Start: 03-06-2024 ambulatory Pete Gar Facility:[facility] Start: 03-01-2024 End: 03-01-2024 ambulatory Pete Gar [facility] Start: 02-28-2024 End: 02-28-2024 ambulatory [facility] Start: 02-27-2024 End: 02-27-2024 ambulatory Pete Gar [facility] Start: 02-20-2024 End: 02-20-2024 Lab Drop off Pete Gar [facility] Start: 02-20-2024 End: 02-20-2024 ambulatory Pete Gar [facility] Start: 02-17-2024 ambulatory Pete Gar Facility : [facility] Start: 11-29-2023 End: 11-29-2023 ambulatory [facility] Start: 09-06-2023 End: 09-06-2023 ambulatory Pete Gar [facility] Start: 07-18-2023 End: 07-18-2023 ambulatory [employer] Cary Avalos [facility] Start: 07-11-2023 End: 07-11-2023 ambulatory Pete Gar [facility]: [facility] Start: 03-01-2023 End: 03-01-2023 Lab Drop off Pete Gar [facility] Start: 10-26-2022 End: 10-26-2022 ambulatory Sebas Jalloh Other [employer] Other Start: 10-26-2022 Telephone encounter Sebas LEE [facility] Start: 10-14-2022 End: 10-14-2022 ambulatory Sebas Jalloh Other [employer] Other Start: 10-14-2022 Telephone encounter Sebas LEE [facility] Start: 08-16-2022 End: 09-15-2022 ambulatory LINDA H FAWWAD Facility:[facility] Start: 07-20-2022 End: 07-21-2022 ambulatory ANGELA EVELIOUKARBEL Facility:[facility] Start: 07-19-2022 End: 08-13-2022 ambulatory LINDA H FAWWAD Facility:[facility] Start: 06-30-2022 Telephone encounter Sebas LEE G [facility] Start: 06-30-2022 End: 06-30-2022 Admission to same day surgery center MD Donato Robin Work Phone: [facility] Work Phone: Start: 06-30-2022 End: 06-30-2022 ambulatory MD Donato Robin Work Phone: [facility] Work Phone: Start: 06-25-2022 End: 06-25-2022 ambulatory Sebas Jalloh Other [employer] Other Start: 06-25-2022 Telephone encounter Sebas LEE G [facility] Start: 06-16-2022 End: 07-16-2022 ambulatory LINDA H FAWWAD Facility:[facility] Start: 06-14-2022 End: 06-14-2022 ambulatory Sebas Jalloh Other [employer] Other Start: 06-14-2022 Patient encounter procedure Sebas Jalloh [facility] Start: 05-19-2022 End: 06-16-2022 ambulatory SHAIKH Denzel LEUNG Facility:[facility] Start: 04-19-2022 End: 05-19-[address] DONATO ROBIN . Facility:[facility] Start: 03-18-2022 End: 04-18-[address] DONATO ROBIN . Facility:[facility] Start: 02-16-2022 End: 03-17-[address] DONATO ROBIN . Facility:[facility] Start: 02-15-2022 End: 02-15-2022 ambulatory Sebas Jalloh Other [employer] Other Start: 02-15-2022 Telephone encounter Sebas LEE G [facility] Start: 01-17-2022 End: 02-15-[address] DONATO ROBIN . Facility:[facility] Start: 12-17-2021 End: 01-16-[address] DONATO ROBIN . Facility:[facility] Start: 11-16-2021 End: 12-16-[address] DONATO ROBIN . Facility:[facility] Start: 10-16-2021 End: 11-13-2021 ambulatory SHAIKH Denzel LEUNG Facility:[facility] Start: 08-10-2021 End: 08-10-2021 ambulatory Sebas Jalloh Other [employer] Other Start: 08-10-2021 Telephone encounter Sebas LEE G [facility] Start: 04-14-2021 End: 04-14-2021 ambulatory Sebas Jalloh Other [employer] Other Start: 04-14-2021 Telephone encounter Sebas LEE G [facility] Start: 04-13-2021 End: 04-13-2021 ambulatory Sebas Jalloh Other [employer] Other Start: 04-13-2021 Telephone encounter Sebas LEE G [facility] Start: 02-17-2021 End: 02-17-2021 ambulatory Sebas Jalloh Other [employer] Other Start: 02-17-2021 Patient encounter procedure Sebas IVY [facility] Start: 07-17-2018 End: 07-18-2018 Patient encounter procedure ZULY ABAD Facility:[facility] Start: 08-23-2017 End: 08-24-2017 Patient encounter procedure ZULY ABAD Facility:[facility] Procedures Date Procedure Procedure Detail Performing Clinician Start: 05-23-2024 Plain chest X-ray Start: 05-11-2024 Bronchoscopy abnormal (finding) Pan Escobarlola Comment on above: LLL BAL and washings Start: 03-28-2024 Esophagogastroduodenoscopy Astrit Geeta i Start: 03-28-2024 Flexible fiberoptic sigmoidoscopy Rima Habridgett Start: 06-30-2022 Colonoscopy MD Donato Robin Work Phone: Cardiac catheter (physical object) Pete Gar Comment on above: July 2012 Carotid endarterectomy Paris Gar Comment on above: July 2012 Colonoscopy Pete Gar Comment on above: 2013 and 2020 History of placement of stent for coronary artery disease Hx of heart artery stent Pete Gar Plan of Treatment Date Care Activity Detail Author Start: 06-30-2022 [facility] aPTT in Platelet poo r plasma by Coagulation assay [facility] INR in Platelet poor plasma by Coagulation assay [facility] Patient Education [facility] Work Phone: Patient referral [facility] Work Phone: Immunizations Immunization Date Immunization Notes Care Provider Maldonado forman 02-28-2023 influenza, high dose seasonal, preservative-free Pete Gar [facility] 04-12-2021 influenza virus vacc ine, unspecified formulation Pete Gar [facility] 04-12-2021 pneumococcal polysaccharide vaccine, 23 valent Pete Gar [facility] 08-07-2020 COVID-19 mRNA Comshivani pires (Pfizer) MD Donato Robin Work Phone: [facility] 07-18-2020 COVID-19 mRNA, Comshivani pires (Pfizer) MD Donato Robin Work Phone: [facility] 02-20-2019 influenza virus vacc ine, unspecified formulation Pete Gar [facility] 02-05-2019 pneumococcal conjuga te vaccine, 13 valent Pete Gar [facility] Payers Date Payer Category Payer Unknown 2024 [facility] ( and others[facility] [id number] 2024 Medicare [id number] 2024 Unknown [id number] 2. .[id number] 1959 [employer] of [place] [employer] ( and others) [id number] 1959 Medicare [id number] 1959 Self-pay [id number] 1959 Unknown [id number] 1946 Unknown [id number] 2.16.840.1.908215.3.579.2.647 1946 Unknown [id number] 2.16.840.1.140685.3.579.2.647 1946 Unknown [id number] 2.16.840.1.483296.3.579.2.593 1946 Unknown [id number] 2.16.840.1.112123.3.579.2.593 1946 Unknown [id number] 2.16.840.1.878472.3.579.2.593 1946 Unknown [id number] 2.16.840.1.134569.3.579.2.593 1946 Unknown [id number] 2.16.840.1.297209.3.579.2.593 1946 Unknown [id number] 2.16.840.1.128582.3.579.2.593 1946 Unknown [id number] 2.16.840.1.299933.3.579.2.593 1946 Unknown [id number] 2.16.840.1.421629.3.579.2.593 1946 Unknown [id number] 2.16.840.1.601680.3.579.2.593 1946 Unknown [id number] 2.16.840.1.333830.3.579.2.593 1946 Unknown [id number] 2.16.840.1.885712.3.579.2.593 1946 Unknown [id number] 2.16.840.1.361325.3.579.2.593 1946 Unknown [id number] 2.16.840.1.443767.3.579.2.593 1946 Unknown [id number] 2.16.840.1.527760.3.579.2.727 1946 Unknown [id number] 2.16.840.1.983768.3.579.2.727 1946 Unknown [id number] 2.16.840.1.807328.3.579.2.727 1946 Unknown [id number] 2.16.840.1.625149.3.579.2.727 1946 Unknown [id number] 2.16.840.1.768979.3.579.2.727 1946 Unknown [id number] 2.16.840.1.161863.3.579.2.72 1946 Unknown [id number] 2.16.840.1.751223.3.579.2.72 1946 Unknown [id number] 2.16.840.1.021770.3.579.2.72 1946 Unknown [id number] 2.16.840.1.328378.3.579.2.72 1946 Unknown [id number] 2.16.840.1.717845.3.579.2. 1946 Unknown [id number] 2.16.840.1.585457.3.579.2. 1946 Unknown [id number] 2.16.840.1.617479.3.579.2 1946 Unknown [id number] 2.16.840.1.459793.3.579.2.72 1945 Unknown [id number] 2.16.840.1.976682.3.579.2. 1945 Unknown [id number] 2.16.840.1.343990.3.579.2.72 1945 Unknown [id number] 2.16.840.1.716058.3.579.2. 1945 Unknown [id number] 2.16.840.1.506438.3.579.2.72 1945 Unknown [id number] 2.16.840.1.049496.3.579.2.72 1945 Unknown [id number] 2.16.840.1.104102.3.579.2.72 1945 Unknown [id number] 2.16.840.1.170906.3.579.2.72 1945 Unknown [id number] 2.16.840.1.561719.3.579.2. 1945 Unknown [id number] 2.16.840.1.458584.3.579.2 1945 Unknown [id number] 2.16.840.1.191331.3.579.2 1945 Unknown [id number] 2.16840.1.335127.3.579.2 1945 Unknown [id number] 2.16.840.1.805778.3.579.2 1945 Unknown [id number] 2.840.1.045099.3.579.2 1945 Unknown [id number] 2.840.1.710142.3.579.2 1945 Unknown [id number] 2.840.1.501538.3.579.2 1945 Unknown [id number] 2.840.1.500060.3.579.2 1945 Unknown [id number] 2.840.1.604283.3.579.2 1945 Unknown [id number] 2.840.1.990704.3.579.2 1946 Unknown [id number] 2.840.1.554887.3.579.2 1946 Unknown [id number] 2.840.1.456589.3.579.2 1946 Unknown [id number] 2.16840.1.271224.3.579.2 1946 Unknown [id number] 2.16.840.1.148125.3.579.2 1946 Unknown [id number] 2.16.840.1.628770.3.579.2.727 1945 Unknown [id number] 2.16.840.1.867694.3.579.2.727 1945 Unknown [id number] 2.16.840.1.515233.3.579.2.727 1945 Unknown [id number] 2.16.840.1.989653.3.579.2.727 1945 Unknown [id number] 2.16.840.1.900739.3.579.2.727 1945 Unknown [id number] 2.16.840.1.512447.3.579.2.727 1945 Unknown [id number] 2.16.840.1.875227.3.579.2.727 Medicare [id number] Unknown [id number] Unknown [id number] Unknown [id number] 2.16.840.1.864633.3.579.2.531 Social History Date Type Detail Facility Sex Assigned At [facility] Start: 06-30-2022 End: 07-05-2024 Tobacco smoking status NHIS Ex-smoker (finding) [facility] Comment on above: quit 1989 Start: 1945 Sex Assigned At Male [facility] Start: 02-28-2023 End: 05-01-2024 Tobacco smoking status Never smoked tobacco (finding) [facility] Tobacco smoking status Never [facility] Start: 05-23-2024 Sex Male (finding) [facility] Sexual Orientation [facility] Goals Date Patient Goal Desired Activity /State Functional Status Date Assessment Result Facility 06-07-2024 Functional Status N/A [facility] 06-01-2024 Functional Status N/A [facility] 05-06-2024 Functional Status N/A [facility] 05-06-2024 Functional Status [facility] 05-01-2024 Functional Status N/A [facility] 04-02-2024 Functional Status N/A [facility] 03-29-2024 Functional Status N/A [facility] 03-21-2024 Functional Status N/A [facility] Clinical Notes 02-17-2021 to 08-07-2024 Radiology Note Date & Type Note Facility 08-07-2024 Note PR Electrophysiology Consult Note PR Cardiology [facility] Reason for visit: HPI: Bennie Dennis is a 79 y.o. year old with past medical history of ischemic cardiomyopathy, LV aneurysm and stroke. He is s/p stenting of the LAD 07/03/2012. He is s/p ICD placement 08/29/2012. He is on anticoagulation with coumadin. He had issues with GI bleed on higher INR. Plavix is stopped since June 2013 given 1 year post stent. Most recently he was admitted to [facility] from 05/06/2024 to 05/14/2024 with hypoxic respiratory failure and shock with hypotension he had pneumonia and pleural effusion on the right and acute kidney injury. He was treated with intravenous fluids, steroids, required Levophed for hypotension as well as antibiotics. He was also thought to have a reaction to Stelara and this was stopped. Since then he was noted to have ICD shocks. Device check reveals that he had VF therapy administered on May 29, 2024 as well as July 04, 2024. Prior to that he had got therapies in February 08, 2024 and January 08, 2024 and noted to have VF on June 12, 2018 with no therapy at that time. I confirmed these episodes to be true based on device tracings PMH: Past Medical History: Diagnosis Date Abnormal ECG Arrhythmia Atrial fibrillation (CMS/HCC) CHF (congestive heart failure) (CMS/HCC) Coronary artery disease Pericardial effusion PSH: Past Surgical History: Procedure Laterality Date CARDIAC CATHETERIZATION INSERT / REPLACE / REMOVE PACEMAKER SH: Social Determinants of Health Tobacco Use: Medium Risk (08/07/2024) Patient History Smoking Tobacco Use: Former Smokeless Tobacco Use: Unknown Passive Exposure: Not on file Alcohol Use: Not on file Financial Resource Strain: Not on file Food Insecurity: Not on file Transportation Needs: Not on file Physical Activity: Not on file Stress: Not on file Social Connections: Not on file Intimate Partner Violence: Unknown (06/09/2023) PR Safety & Environment Fear of Current or Ex-Partner: Not on file Emotionally Abused: Not on file Physically Abused: Not on file Sexually Abused: Not on file Physically or Sexually Abused: Not on file Depression: Not on file Housing Stability: Not on file Utilities: Not on file Health Literacy: Not on file Allergies: No Known Allergies Weight: 59kg Visit Vitals BP 119/64 (BP Location: Left arm, Patient Position: Sitting) Pulse 83 Ht 1.676 m (5' 6 ) Wt 59 kg (130 lb) SpO2 99% BMI 20.98 kg/m??? Smoking Status Former BSA 1.66 m??? Meds: Current Outpatient Medications on File Prior to Visit Medication Sig Dispense Refill aspirin 81 mg EC tablet in the morning. atorvastatin (Lipitor) 80 mg tablet Take 80 mg by mouth at bedtime. carvedilol (Coreg) 12.5 mg tablet Take 1 tablet (12.5 mg) by mouth with breakfast and with evening meal. 180 tablet 3 cholecalciferol (Vitamin D3) 25 MCG (1000 units) tablet Take by mouth in the morning. Creon 36,000-114,000- 180,000 unit capsule,delayed release(DR/EC) capsule Take 1 capsule by mouth. Daily-Cira, with folic acid, 400 mcg tablet Take 1 tablet by mouth in the morning. mesalamine (Lialda) 1.2 gram EC tablet Take by mouth in the morning. mirtazapine (Remeron Alisha-Tab) 15 mg disintegrating tablet Take 15 mg by mouth at bedtime. omega-3 (Fish OiL) 60-90-500 mg capsule Take by mouth in the morning. sacubitriL-valsartan (Entresto) 24-26 mg tablet every 12 (twelve) hours. spironolactone (Aldactone) 25 mg tablet TAKE ONE-HALF (1/2) TABLET DAILY 45 tablet 3 warfarin (Coumadin) 4 mg tablet warfarin 4 mg tablet 90 tablet 1 balsalazide (Colazal) 750 mg capsule balsalazide 750 mg capsule TAKE 3 CAPSULES BY MOUTH TWICE DAILY enoxaparin (Lovenox) 30 mg/0.3 mL syringe Inject 30 mg under the skin in the morning. tamsulosin (Flomax) 0.4 mg 24 hr capsule Take 0.4 mg by mouth in the morning. No current facility-administered medications on file prior to visit. ROS: Review of Systems Musculoskeletal: Positive for muscle weakness. Genitourinary: Positive for hematuria and incomplete emptying. Neurological: Positive for focal weakness and weakness. All other systems reviewed and are negative. Physical Exam: Constitutional General Appearance: well-nourished, well-developed, appears stated age Level of Distress: comfortable Eyes KALEN Neck Neck: supple, trachea midline Carotid Arteries: bilateral normal upstroke, no bruits Jugular Veins: normal jugular venous pressure Thyroid: not enlarged Lungs Respiratory Effort: unlabored Chest Exam: normal curvature, no thoracic deformity Auscultation: clear, no wheezing, no rales, no rhonchi Cardiovascular Chest wall: Rate And Rhythm: regular Heart Sounds: normal S1, normal s2, no gallop Systolic Murmur: not heard Diastolic Murmur: not heard Extremities: no cyanosis, no edema, no peripheral signs of emboli Peripheral Pulses Radia (more content not included)... [facility] 06-17-2024 Evaluation + Plan note Future Appointments Appointment Date:07/11/2024 03:00:00 PM Scheduled Provider: Location:.[facility]AN Appointment Type:CT Chest (FT) Appointment Date:07/11/2024 03:30:00 PM Scheduled Provider: [facility] Appointment Type:PUL Pulmonary Function Test (FT) Appointment Date:07/13/2024 11:00:00 AM Scheduled Provider:Pooja Stephens MD Location:.[facility] Appointment Type:Pulmonary Follow Up (FT) Appointment Date:08/30/2024 10:00:00 AM Scheduled Provider:Pete Gar MD Location:[facility] Appointment Type: Open Appointment Date:10/04/2024 10:15:00 AM Scheduled Provider:Eloisa Hassan MD Location:[facility] Appointment Type:BADH Follow Up Appointment Date:11/21/2024 11:00:00 AM Scheduled Provider: Location:[facility] Appointment Type: Medicare Wellness Subsequent Appointment Date:12/07/2024 09:40:00 AM Scheduled Provider:SWETHA COLLIER PA-C Location:[facility] Appointment Type:URO Office Visit Future Scheduled TestsCT Chest w/o High Resolution 07/11/24XR Chest 2 Views 06/11/24 [facility] 06-09-2024 Note Microbiology PROCEDURE: Fungus Culture [R1] SOURCE: Bronch Wash BODY SITE: Lung COLLECTED DATE/TIME: 05/11/2024 13:32 EST RECEIVED DATE/TIME: 05/11/2024 15:38 EST START DATE/TIME: 05/11/2024 15:38 EST FREE TEXT SOURCE: Left lower lobe SABINO Stephens MD, Pooja Stephens MD, Pooja Belcher FINAL REPORTS Final Report [] Verified Date/Time: 06/09/2024 08:11 EST No growth at 28 days. STAINS TARIK Preparation Report [] Verified Date/Time: 05/11/2024 16:12 EST Occasional Yeast Performing Locations R1: This test was performed at: [facility], [address] [place] [address], [address] [place] [address], [facility] Comment on above: Performed By: #### [id number] #### [facility] [address] [place] [address] 06-09-2024 Note Microbiology PROCEDURE: Fungus Culture [R1] SOURCE: Bronch Wash BODY SITE: Lung COLLECTED DATE/TIME: 05/11/2024 13:32 EST RECEIVED DATE/TIME: 05/11/2024 15:38 EST START DATE/TIME: 05/11/2024 15:38 EST FREE TEXT SOURCE: Left lower lobe SABINO Stephens MD, Pooja Stephens MD, Pooja Belcher FINAL REPORTS Final Report [] Verified Date/Time: 06/09/2024 08:11 EST No growth at 28 days. STAINS TARIK Preparation Report [] Verified Date/Time: 05/11/2024 16:12 EST Occasional Yeast Performing Locations R1: [facility] at[facility], [address] [place] [address], [address] [place] [address], [phone] Comment on above: Performed By: #### [id number] #### [facility] [address] [place] [id number] 06-09-2024 Note Microbiology PROCEDURE: Fungus Culture [R1] SOURCE: Bronch Wash BODY SITE: Lung COLLECTED DATE/TIME: 05/11/2024 13:31 EST RECEIVED DATE/TIME: 05/11/2024 15:50 EST START DATE/TIME: 05/11/2024 15:50 EST FREE TEXT SOURCE: General lung washing Angelo STEWART, Pooja Stephens MD, Pooja Belcher FINAL REPORTS Final Report [] Verified Date/Time: 06/09/2024 08:00 EST No growth at 28 days. STAINS TARIK Preparation Report [] Verified Date/Time: 05/11/2024 16:11 EST No fungal elements seen. Performing Locations R1: [facility] at[facility], [address] [place] [address] Comment on above: Performed By: #### [id number] #### [facility] [address] [place] [id number] 06-09-2024 Note Microbiology PROCEDURE: Fungus Culture [R1] SOURCE: Bronch Wash BODY SITE: Lung COLLECTED DATE/TIME: 05/11/2024 13:31 EST RECEIVED DATE/TIME: 05/11/2024 15:50 EST START DATE/TIME: 05/11/2024 15:50 EST FREE TEXT SOURCE: General lung washing Angelo STEWART, Pooja Stephens MD, Pooja Belcher FINAL REPORTS Final Report [] Verified Date/Time: 06/09/2024 08:00 EST No growth at 28 days. STAINS TARIK Preparation Report [] Verified Date/Time: 05/11/2024 16:11 EST No fungal elements seen. Performing Locations R1: This [facility] performed at[facility], [address] [place] [address], [address] [place], [place] [id number] [address] Comment on above: Performed By: #### [id number] #### [facility] [address] [place] [address] 06-07-2024 Hospital Discharge instructions Patient Education 06/07/2024 15:13:06 Benign Prostatic Hyperplasia Benign Prostatic Hyperplasia Benign prostatic hyperplasia (BPH) is an enlarged prostate gland that is caused by the normal aging process. The prostate may get bigger as a man gets older. The condition is not caused by cancer. The prostate is a walnut-sized gland that is involved in the production of semen. It is located in front of the rectum and below the bladder. The bladder stores urine. The urethra carries stored urine out of the body. An enlarged prostate can press on the urethra. This can make it harder to pass urine. The buildup of urine in the bladder can cause infection. Back pressure and infection may progress to bladder damage and kidney (renal) failure. What are the causes? This condition is part of the normal aging process. However, not all men develop problems from this condition. If the prostate enlarges away from the urethra, urine flow will not be blocked. If it enlarges toward the urethra and compresses it, there will be problems passing urine. What increases the risk? This condition is more likely to develop in men older than 50 years. What are the signs or symptoms? Symptoms of this condition include: Getting up often during the night to urinate. Needing to urinate frequently during the day. Difficulty starting urine flow. Decrease in size and strength of your urine stream. Leaking (dribbling) after urinating. Inability to pass urine. This needs immediate treatment. Inability to completely empty your bladder. Pain when you pass urine. This is more common if there is also an infection. Urinary tract infection (UTI). How is this diagnosed? This condition is diagnosed based on your medical history, a physical exam, and your symptoms. Tests will also be done, such as: A post-void bladder scan. This measures any amount of urine that may remain in your bladder after you finish urinating. A digital rectal exam. In a rectal exam, your health care provider checks your prostate by putting a lubricated, gloved finger into your rectum to feel the back of your prostate gland. This exam detects the size of your gland and any abnormal lumps or growths. An exam of your urine (urinalysis). A prostate specific antigen (PSA) screening. This is a blood test used to screen for prostate cancer. An ultrasound. This test uses sound waves to electronically produce a picture of your prostate gland. Your health care provider may refer you to a specialist in kidney and prostate diseases (urologist). How is this treated? Once symptoms begin, your health care provider will monitor your condition (active surveillance or watchful waiting). Treatment for this condition will depend on the severity of your condition. Treatment may include: Observation and yearly exams. This may be the only treatment needed if your condition and symptoms are mild. Medicines to relieve your symptoms, including: ?Medicines to shrink the prostate. ?Medicines to relax the muscle of the prostate. Surgery in severe cases. Surgery may include: ?Prostatectomy. In this procedure, the prostate tissue is removed completely through an open incision or with a laparoscope or robotics. ?Transurethral resection of the prostate (TURP). In this procedure, a tool is inserted through the opening at the tip of the penis (urethra). It is used to cut away tissue of the inner core of the prostate. The pieces are removed through the same opening of the penis. This removes the blockage. ?Transurethral incision (TUIP). In this procedure, small cuts are made in the prostate. This lessens the prostate's pressure on the urethra. ?Transurethral microwave thermotherapy (TUMT). This procedure uses microwaves to create heat. The heat destroys and removes a small amount of prostate tissue. ?Transurethral needle ablation (TUNA). This procedure uses radio frequencies to destroy and remove a small amount of prostate tissue. ?Interstitial laser coagulation (ILC). This procedure uses a laser to destroy and remove a small amount of prostate tissue. ?Transurethral electrovaporization (TUVP). This procedure uses electrodes to destroy and remove a small amount of prostate tissue. ?Prostatic urethral lift. This procedure inserts an implant to push the lobes of the prostate away from the urethra. Follow these instructions at home: Take ixga-epm-qnyrefd and prescription medicines only as told by your health care provider. Monitor your symptoms for any changes. Contact your health care provider with any changes. Avoid drinking large amounts of liquid before going to bed or out in public. Avoid or reduce how much caffeine or alcohol you drink. Give yourself time when you urinate. Keep all follow-up visits. This is important. Contact a health care provider if: You have unexplained back pain. Your symptoms do not get better with treatment. You develop side effects from the medicine you are taking. Your urine becomes very dark or has a bad smell. Your lower abdomen becomes distended and you have trouble passing urine. Get help right away if: You have a fever or chills. You suddenly cannot urinate. You feel light-headed or very dizzy, or you faint. There are large amounts of blood or clots in your urine. Your urinary problems become hard to manage. You develop moderate to severe low back or flank pain. The flank is the side of your body between the ribs and the hip. These symptoms may be an emergency. Get help right away. Call 911. Do not wait to see if the symptoms will go away. Do not drive yourself to the hospital. Summary Benign prostatic hyperplasia (BPH) is an enlarged prostate that is caused by the normal aging process. It is not caused by cancer. An enlarged prostate can press on the urethra. This can make it hard to pass urine. This condition is more likely to develop in men older than 50 years. Get help right away if you suddenly cannot urinate. This information is not intended to replace advice given to you by your health care provider. Make sure you discuss any questions you have with your health care provider. Document Revised: 10/21/2021 Document Reviewed: 10/21/2021 [employer] Patient Education 2023 [employer]. Follow Up Care 05/16/2024 10:43:24 With:NANDO KAY, SWETHA Azevedo, URL Address: [address] [place], [place] [address] [address] When:Within 6 Month(s) [facility] 06-07-2024 Note Patient Education Urology Benign Prostatic Hyperplasia Benign prostatic hyperplasia (BPH) is an enlarged prostate gland that is caused by the normal aging process. The prostate may get bigger as a man gets older. The condition is not caused by cancer. The prostate is a walnut-sized gland that is involved in the production of semen. It is located in front of the rectum and below the bladder. The bladder stores urine. The urethra carries stored urine out of the body. An enlarged prostate can press on the urethra. This can make it harder to pass urine. The buildup of urine in the bladder can cause infection. Back pressure and infection may progress to bladder damage and kidney (renal) failure. What are the causes? This condition is part of the normal aging process. However, not all men develop problems from this condition. If the prostate enlarges away from the urethra, urine flow will not be blocked. If it enlarges toward the urethra and compresses it, there will be problems passing urine. What increases the risk? This condition is more likely to develop in men older than 50 years. What are the signs or symptoms? Symptoms of this condition include: ??? Getting up often during the night to urinate. ??? Needing to urinate frequently during the day. ??? Difficulty starting urine flow. ??? Decrease in size and strength of your urine stream. ??? Leaking (dribbling) after urinating. ??? Inability to pass urine. This needs immediate treatment. ??? Inability to completely empty your bladder. ??? Pain when you pass urine. This is more common if there is also an infection. ??? Urinary tract infection (UTI). How is this diagnosed? This condition is diagnosed based on your medical history, a physical exam, and your symptoms. Tests will also be done, such as: ??? A post-void bladder scan. This measures any amount of urine that may remain in your bladder after you finish urinating. ??? A digital rectal exam. In a rectal exam, your health care provider checks your prostate by putting a lubricated, gloved finger into your rectum to feel the back of your prostate gland. This exam detects the size of your gland and any abnormal lumps or growths. ??? An exam of your urine (urinalysis). ??? A prostate specific antigen (PSA) screening. This is a blood test used to screen for prostate cancer. ??? An ultrasound. This test uses sound waves to electronically produce a picture of your prostate gland. Your health care provider may refer you to a specialist in kidney and prostate diseases (urologist). How is this treated? Once symptoms begin, your health care provider will monitor your condition (active surveillance or watchful waiting). Treatment for this condition will depend on the severity of your condition. Treatment may include: ??? Observation and yearly exams. This may be the only treatment needed if your condition and symptoms are mild. ??? Medicines to relieve your symptoms, including: ? Medicines to shrink the prostate. ? Medicines to relax the muscle of the prostate. ??? Surgery in severe cases. Surgery may include: ? Prostatectomy. In this procedure, the prostate tissue is removed completely through an open incision or with a laparoscope or robotics. ? Transurethral resection of the prostate (TURP). In this procedure, a tool is inserted through the opening at the tip of the penis (urethra). It is used to cut away tissue of the inner core of the prostate. The pieces are removed through the same opening of the penis. This removes the blockage. ? Transurethral incision (TUIP). In this procedure, small cuts are made in the prostate. This lessens the prostate's pressure on the urethra. ? Transurethral microwave thermotherapy (TUMT). This procedure uses microwaves to create heat. The heat destroys and removes a small amount of prostate tissue. ? Transurethral needle ablation (TUNA). This procedure uses radio frequencies to destroy and remove a small amount of prostate tissue. ? Interstitial laser coagulation (ILC). This procedure uses a laser to destroy and remove a small amount of prostate tissue. ? Transurethral electrovaporization (TUVP). This procedure uses electrodes to destroy and remove a small amount of prostate tissue. ? Prostatic urethral lift. This procedure inserts an implant to push the lobes of the prostate away from the urethra. Follow these instructions at home: ??? Take howz-gqk-blnjmbj and prescription medicines only as told by your health care provider. ??? Monitor your symptoms for any changes. Contact your health care provider with any changes. ??? Avoid drinking large amounts of liquid before going to bed or out in public. ??? Avoid or reduce how much caffeine or alcohol you drink. ??? Give yourself time when you urinate. ??? Keep all follow-up visits. This is important. Contact a health care provider if: ??? You have unexplained back pain. ??? Your symptoms do not get (more content not included)... [facility] 05-28-2024 Note PR Cardiology - [facility] Subjective Bennie Dennis is a 78 y.o. year old male patient being seen for follow up [facility]. Discharge summary from [facility] said to hold Entresto and spironolactone, but per SNF medication list he is still being given both meds. He had hematuria while inpatient he says. Denies chest pain, SOB, and palpitations. Patient Active Problem List Diagnosis Atrial fibrillation (CMS/HCC) Pericardial effusion Systolic heart failure (CMS/HCC) History of cardiovascular disorder Chronic ischemic heart disease Acute myocardial infarction of anterior wall (CMS/HCC) Coronary arteriosclerosis in zuni artery History of cardioembolic stroke AICD (automatic cardioverter/defibrillator) present Nonsustained ventricular tachycardia (CMS/HCC) Acute ill-defined cerebrovascular disease Adhesive capsulitis of shoulder DDD (degenerative disc disease), lumbar Hemiparesis (CMS/HCC) Hx of arterial ischemic stroke Hx of heart artery stent Prostate disorder Ulcerative colitis (CMS/HCC) Acute kidney failure, unspecified (CMS/HCC) Acute respiratory failure with hypoxia (CMS/HCC) Anemia, unspecified Benign prostatic hyperplasia without lower urinary tract symptoms Blood in stool BMI 22.0-22.9, adult Chronic anticoagulation Other mcfp (current) drug therapy Cognitive communication deficit Dehydration Difficulty in walking, not elsewhere classified Elevated liver enzymes Dysphagia, oral phase Esophageal dysphagia Flaccid hemiplegia affecting unspecified side (CMS/HCC) Hyperlipidemia, unspecified Hypovolemia Leg swelling Limitation of activities due to disability Loose stools Muscle weakness (generalized) Nonsmoker Nutritional deficiency, unspecified Other specified diseases of pancreas Pleural effusion, not elsewhere classified Pneumonia, unspecified organism Primary biliary cholangitis (CMS/HCC) Ulcerative (chronic) pancolitis without complications (CMS/HCC) Unspecified sequelae of cerebral infarction Weakness Family History Problem Relation Name Age of Onset Coronary artery disease Brother Diabetes Brother Social History Tobacco Use Smoking status: Former Current packs/day: 0.00 Types: Cigarettes Start date: 1959 Quit date: 1989 Years since quittin.1 Substance Use Topics Alcohol use: Not Currently Drug use: Never HPI Bennie is seen in follow up on ischemic cardiomyopathy, LV aneurysm and stroke. He is s/p stenting of the LAD 07/03/2012. He is s/p ICD placement 08/29/2012. He is on anticoagulation with coumadin. I had raised his INR target to 2.5-3.5 due to excessive spontaneous echocontrast in the ventricle. [facility] follows his INR levels. However on follow up and due to ulcerative colitis and occasional lower GI bleeding, I had asked anticoagulation clinic to reduced the target INR to 2.5 - 3.0. He has not had bleeding since then. Plavix is stopped since June 2013 given 1 year post stent. Most recently he was admitted to [facility] from 05/06/2024 to 05/14/2024 with hypoxic respiratory failure and shock with hypotension he had pneumonia and pleural effusion on the right and acute kidney injury. He was treated with intravenous fluids, steroids, required Levophed for hypotension as well as antibiotics. He was also thought to have a reaction to Stelara and this was stopped. today he reports that he has been doing a little bit better. He is in a correction recovering for the next few weeks. His blood pressure is low and he feels weakness and tired. He has lost a lot of weight since prior visits. He denies chest pain and shortness of breath. No leg edema. He is currently on Entresto 24-26 mg twice daily, carvedilol 12.5 mg twice daily, and spironolactone 12.5 mg once daily. Vitals log 05/23/2024-05/23/2024 - 05/27/2024: Heart rate 58--92 bpm: Systolic blood pressure 88-131: Diastolic blood pressure 50-71. Review of Systems Musculoskeletal: Positive for muscle weakness. Genitourinary: Positive for hematuria and incomplete emptying. Neurological: Positive for focal weakness and weakness. All other systems reviewed and are negative. Objective Visit Vitals BP 86/56 (BP Location: Right arm, Patient Position: Sitting) Pulse 81 Ht 1.676 m (5' 6 ) Wt 56.2 kg (124 lb) SpO2 99% BMI 20.01 kg/m??? Smoking Status Former BSA 1.62 m??? Physical Exam Constitutional: Appearance: He is well-developed. He is ill-appearing. Comments: Thin appearing HENT: Head: Normocephalic [...] heart sounds. No murmur heard. No friction r (more content not included)... [facility] 05-14-2024 Note Progress Note-Physic vaishali Assessment/Plan 1. Acute hypoxic respiratory failure (J96.01: Acute respiratory failure with hypoxia) Suspect 2/2 opportunistic infection vs possible drug reaction Former smoker Plan: - Currently on RA - Titrate O2 for sats 92-96% - Continue bronchodilators - CTA chest revealed b/l GGO concerning for viral PNA vs inflammatory process. COVID and RVP are negative. Procal is negative. No leukocytosis. Pt recently received a Stelara injection for his UC. Unclear if this is contributing to his CT findings and respiratory failure. - Will treat his pulmonary infiltrates with empiric abx for now - CRP is improving - LDH is 452 --> concerning for possible PCP - S/p bronch (05/11) --> There were notable mucoid secretions in the lower lobes bilaterally. There are bronchiectatic changes in the airways. Bronchial washing was performed and sent for cultures/cytology. BAL from left lower lobe was performed and sent for culture/cytology and pneumocystis PCR and cell count - Encourage IS and OOB VTE ppx: Coumadin Ok to d/c from PCCM perspective Recommend f/u w/ PCP on already scheduled date of 05/24 for BAL results Recommend repeat CT chest in 3 months Subjective Pt is a 78y M with past medical history significant for CAD s/p ADARSH, chronic HFrEF s/p AICD, PAF on coumadin, CVA, pancreatic insufficiency, ulcerative colitis, BPH, and HLD who presented to the ED on 05/06 with complaints of generalized weakness for the past month or two. He denies any recent fevers, productive cough, chest pain, abdominal pain, nausea, vomiting, diarrhea, or BLE edema. In the ED, pt presented tachycardic, hypotensive, and hypoxemic on RA. Laboratory workup revealed INR 2.07, SCr 1.5, bicarb 26, lipase 74, BNP 93, but otherwise unremarkable. Initial ABG showed 7.49/33/42. CTA chest obtained which was neg for PE but did reveal significant b/l GGO (Rt > Lt) and tiny Rt pleural effusion. Pt remained hypotensive in the ED despite fluid resuscitation and was started on levophed. He was also started on empiric abx, SDS, and admitted to the ICU for further management. PCCM consulted to assist in management of the pt's acute hypoxemic respiratory failure and shock. 05/08: Pt required low dose levophed in the afternoon yesterday but was weaned off early this AM. He has been stable on 2L NC and could likely be weaned to RA. Pt reports that he is feeling improved. He denies any complaints of SOB, productive cough, chest pain, dizziness, or lightheadedness. I discussed the case w/ Dr. Stephens. We will plan to bronch tomorrow to obtain a BAL for possible PCP. Pt is agreeable. NPO at midnight. 05/09: Pt was on low dose levophed o/, but this was weaned off around 0 today. He has been on and off 2L NC. His hgb dropped to 8.8 today but not obvious signs of bleeding. INR is 6.5. Will give 10mg Vitamin K and reschedule the bronchoscopy for Tuesday. Pt states he is feeling well. He denies any new complaints. 05/10: Pt was placed back on 2L NC o/n but his O2 sats have been high 90s this AM. Pt is OOB to chair currently. He denies any respiratory complaints. Hgb improved to 9.4 today without intervention. INR improved to 1.22 today after the VitK yesterday. Will plan for bronchoscopy tomorrow, NPO at midnight. BP has been stable off levophed. 05/12: Did well with bronchoscopy yesterday. He is awake, alert and oriented on my exam. He is currently on room air. Reports no increased shortness of breath. Primary team is working on Coumadin therapy with pharmacy, if he does not qualify for home oxygen okay from pulmonary perspective to DC in a.m. and to follow-up as outpatient for results. 05/14: No acute events o/n. Pt has been weaned to RA. He reports that his breathing is doing well. He denies any SOB or productive cough. Primary team plans to d/c home today. Objective Vitals & Measurements T: 36.5 ???C(Oral) TMIN: 36.3 ???C(Axillary) TMAX: 36.8 ???C(Oral) HR: 98(Monitored) RR: 18 BP: 124/77 SpO2: 92% HT: 172.72 cm WT: 66.6 kg Intake & Output This visit (24 hour periods starting at 07:00 EST) 05/14/24 * 05/13/24 05/12/24 Total Summary Intake mL -- 1,235 1,160 Output mL -- 1,100 1,325 Fluid Balance -- 135 -165 Intake (2) Oral Intake mL -- 1,235 1,060 Sodium Chloride 0.9%, piperacillin-tazobactam mL -- -- 100 Total -- 1,235 1,160 Output (1) Urine Catheter mL -- 1,100 1,325 Total -- 1,100 1,325 Counts (1) Stool Count -- -- 2 * This column has not completed the indicated time period. Physical Exam General: No acute distress Skin: Warm, dry Neck: Trachea midline Eye: Sclera anicteric ENMT: Moist mucous membranes Cardiovascular: Regular rate and rhythm. No murmurs, rubs, or gallops. Trace pedal edema. Respiratory: Diminished b/l. No wheezing or rhonchi. No stridor. No accessory muscle use. Chest wall: No deformity Gastrointestinal: Soft, non-tender, non-distended Extremities: No defor (more content not included)... [facility] Comment on above: Result Comment: Elec tronically Signed By: Angelo STEWART, Pooja Belcher\.br\Date and Time Signed: 05/14/24 19:20 EST 05-14-2024 Hospital Discharge instructions Patient Education 05/14/2024 13:51:53 Indwelling Urinary Catheter Insertion, Care After Indwelling Urinary Catheter Insertion, Care After This sheet gives you information about how to care for yourself after your procedure. Your health care provider may also give you more specific instructions. If you have problems or questions, contact your health care provider. What can I expect after the procedure? After the procedure, it is common to have: Slight discomfort around your urethra where the catheter enters your body. Follow these instructions at home: General instructions Keep the drainage bag at or below the level of your bladder. By doing this, your urine can only drain out instead of going back into your body. Secure the catheter tubing and drainage bag to your leg or thigh to keep it from moving. Check the catheter tubing regularly to make sure there are no kinks or blockages. Take showers daily to keep the catheter clean. Do not take a bath. Do not pull on your catheter. Disconnect the tubing and drainage bag as little as possible. Empty the drainage bag every 2 4 hours, or more often if needed. Do not let the bag get completely full. Wash your hands with soap and water before and after touching the catheter, tubing, or drainage bag. Do not let the drainage bag or catheter tubing touch the floor. Drink enough fluids to keep your urine pale yellow, or as told by your health care provider. How to remove the catheter Remove the catheter only if told by your health care provider. Follow instructions from your health care provider about when and how to remove the catheter. For most catheters, you will need to take the following steps: 1.Prepare your supplies. You will need a: Syringe. This would be given to you by your health care provider. Towel. Wastebasket. 2.Empty the drainage bag if needed. 3.Wash your hands with soap and warm water. 4.Remove the tape that secures the catheter to your leg or thigh. 5.Get into a comfortable position, such as: Lying down with your head raised on pillows and your knees pointing to the ceiling. Sitting on a chair or the edge of a bed. 6.Place the towel under you to catch any spilled urine. 7.Put the syringe into the balloon port of the catheter. Use a firm push and twist motion to fit the syringe into the balloon port. 8.The water from the balloon will empty into the syringe. 9.Gently pull out the catheter once the balloon is empty. If the catheter doesn't slide easily, do not use force. Let your health care provider know that you are not able to remove the catheter. 10.Throw the used catheter and the syringe in the wastebasket. 11.Wipe any spilled urine or water with the towel. 12.Wash your hands with soap and warm water. Safety Let your health care provider know if: Your bladder is full, but you are not able to urinate. You have removed the catheter, but you are not able to urinate after 8 hours. Contact a health care provider if: Your urine: ?Looks cloudy. ?Has a bad smell. ?Stops flowing into the drainage bag. Your catheter: ?Gets clogged. ?Starts to leak. You feel pain or pressure in the bladder area. You have back pain. Your drainage bag or tubing looks dirty. Get help right away if: You have a fever or chills. You have severe pain in your back or your lower abdomen. You have warmth, redness, swelling, or pain in the urethra area. You notice blood in your urine. Your catheter gets pulled out. Summary Wash your hands with soap and water before and after touching the catheter, tubing, or drainage bag. Do not pull on your catheter or try to remove it. Keep the drainage bag at or below the level of your bladder, but do not let the drainage bag or catheter tubing touch the floor. Get help right away if you have a fever, chills, or any other signs of infection. This information is not intended to replace advice given to you by your health care provider. Make sure you discuss any questions you have with your health care provider. Document Revised: 06/24/2021 Document Reviewed: 03/20/2021 [employer] Patient Education 2021 [employer]. 05/14/2024 13:51:42 Acute Respiratory Failure, Adult Acute Respiratory Failure, Adult Acute respiratory failure is when one or both of these things happen: Oxygen cannot pass from the lungs into the blood, causing the blood oxygen level to drop. Loss of blood oxygen means tissues and organs may not work well. A gas called carbon dioxide cannot pass from the blood into the lungs so the body can get rid of it. The buildup of carbon dioxide can damage the tissues and organs in the body. Acute respiratory failure happens fast. It is an emergency and needs to be treated right away. What are the causes? Common causes of respiratory failure that may cause low oxygen levels include: Trauma to the lung, chest, or ribs, or to the tissues around the lung. Lung conditions, such as pneumonia, asthma, or blood clots in the lungs (pulmonary embolism). Breathing in harmful chemicals, smoke, water, or vomit. A widespread infection (sepsis). Heart attack. Common causes of respiratory failure that cause a buildup of carbon dioxide include: Stroke. A spinal cord injury. Drug or alcohol overdose. Sepsis. The heart stopping all of a sudden (cardiac arrest). What increases the risk? This condition is more likely to develop in people who have: Known lung conditions, such as asthma or chronic obstructive pulmonary disease (COPD). A condition that damages or weakens the muscles, nerves, bones, or tissues that are involved in breathing, such as myasthenia gravis or Guillain Borrero syndrome. A health problem that blocks the unconscious reflex that is involved in breathing, such as hypothyroidism or sleep apnea. What are the signs or symptoms? Symptoms may depend on the cause and on the levels of oxygen and carbon dioxide in your blood. Trouble breathing is the main symptom of acute respiratory failure. Other symptoms may include: Fast breathing. Making high-pitched whistling sounds when you breathe (wheezing) and grunting. Confusion or changes in behavior. Feeling tired, sleeping more than normal, or being hard to wake. Skin, lips, or fingernails that look blue (cyanosis). Feeling restless or anxious. Fast or irregular heartbeats (palpitations). How is this diagnosed? This condition may be diagnosed based on: Your medical history and a physical exam. Your health care provider will listen to your heart and lungs to check for abnormal sounds. Tests to confirm the diagnosis and find the cause of respiratory failure. Tests may include: ?Measuring the amount of oxygen in your blood (pulse oximetry). This involves placing a small device on your finger, earlobe, or toe. ?Blood tests to measure levels of blood oxygen and carbon dioxide. ?Chest X-ray. How is this treated? Treatment for this condition usually takes place in a hospital intensive care unit (ICU). Treatment depends on the cause of the condition. Treatment may include one or more of these: Oxygen given through your nose or a face mask. A device to help you breathe, such as a continuous positive airway pressure (CPAP) machine or bilevel positive airway pressure (BIPAP) machine. The device gives you oxygen and pressure. Other breathing treatments, fluids, and medicines. A breathing machine called a ventilator. This gives you oxygen and pressure to help you breathe. A tube is put into your mouth and windpipe (trachea) and connects to the ventilator. Tracheostomy placement, if you are on a ventilator for a long time. A tracheostomy is a breathing tube put through your neck into your trachea. Follow these instructions at home: Medicines Take [id number] and prescription medicines only as told by your health care provider. If you were prescribed antibiotics, take them as told by your health care provider. Do not stop using the antibiotic even if you start to feel better. General instructions Return to your normal activities as told by your health care provider. Ask your health care provider what activities are safe for you. Do not use any products that contain nicotine or tobacco. These products include cigarettes, chewing tobacco, and vaping devices, such as e-cigarettes. If you need help quitting, ask your health care provider. Keep all follow-up visits. Contact a health care provider if: Your symptoms do not improve or they get worse. Get help right away if: You are having trouble breathing. You lose consciousness. Your heart starts beating very fast. Your fingers, lips, or other areas of your body turn blue. You are confused. These symptoms may be an emergency. Get help right away. Call 911. Do not wait to see if the symptoms will go away. Do not drive yourself to the hospital. Summary Acute respiratory failure is a condition that develops fast and needs to be treated right away. The main symptom of this condition is trouble breathing. Treatment for this condition usually takes place in a hospital intensive care unit (ICU). Treatment may include oxygen, fluids, and medicines. A machine may be used to help you breathe, such as a ventilator. Contact a health care provider if your symptoms do not improve or if they get worse. This information is not intended to replace advice given to you by your health care provider. Make sure you discuss any questions you have with your health care provider. Document Revised: 06/11/2022 Document Reviewed: 06/11/2022 [employer] Patient Education 2023 [employer]. Follow Up Care 05/06/2024 10:34:06 With:Linda Enrique Address:Unknown When: Unknown Comments:Dr. Enrique's office will call you for a follow up appointment. If you do not hear form them is a few days, then call for hospital followup appointment in regards to urinary retention /gill. Thank you. With:Eloisa Hassan Address: [address], [address] [place] [address]- [phone] Business (1) When: Unknown Comments:Call for followup appointment 2 weeks. With:Pooja Stephens Address: [address] [place] [address]- [phone] Business (1) When: Unknown Comments:Call for followup appointment 3 weeks With:Pete Gar Address: [address] [place] [address]- Business (2) When:05/24/2024 15:00:00 Comments:Keep scheduled appointment [facility] 05-14-2024 Note Discharge Summary Admission and Discharge Information Admit Date/Time:05/06/2024 14:19 Admitting Physician - Pan Gar DO Consulting Physician - Duane Lund Jr., PA-C Admitting Diagnoses: Discharge Order Date Discharge Patient - Ordered -- 05/14/24 12:19:00 EST, NEEDS SEEN BY PULM AND NEBULIZER MANAGER PROVIDER RELATIONS FIRST. Discharge Diagnoses 1. Acute hypoxic respiratory failure, 05/06/2024 2. Shock, 05/07/2024 3. Acute hypotension, 05/07/2024 4. PNA (pneumonia), 05/06/2024 5. Pleural effusion on right, 05/06/2024 6. Acute sinusitis, 05/06/2024 7. Anemia, 05/06/2024 8. Urinary retention with incomplete bladder emptying, 05/07/2024 9. Acute kidney injury, 05/06/2024 10. Diarrhea, 05/10/2024 11. Hypokalemia, 05/11/2024 12. 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 Chronic systolic heart failure, 05/06/2024 14. Paroxysmal A-fib, 05/06/2024 15. Supratherapeutic INR, 05/08/2024 16. HTN (hypertension), 05/06/2024 17. HLD (hyperlipidemia), 05/06/2024 18. Pancreatic insufficiency, 05/06/2024 19. UC (ulcerative colitis), 05/06/2024 20. BPH (benign prostatic hyperplasia), 05/06/2024 21. History of CVA with residual deficit, 05/06/2024 22. On deep vein thrombosis (DVT) prophylaxis, 05/06/2024 Blood in stool, 05/06/2024 Respiratory problem, 05/06/2024 Weakness or fatigue, 05/06/2024 Procedure History Bronchoscopy abnormal (05/11/2024), Esophagogastroduodenoscopy (03/28/2024), Flexible sigmoidoscopy (03/28/2024), Cardiac catheter, Carotid endarterectomy, Colonoscopy. Hospital Course 78-year-old male who presented to the hospital with acute hypoxic respiratory failure secondary to opportunistic infection/drug reaction to Stelara. Patient was in septic shock on admission. Patient was treated with aggressive IV fluids. Was initially thought patient had adrenal insufficiency as pt had abruptly stopped taking pred 60mg daily dosing after 30 days of tx. Pt was treated with aggressive steroid replacement. Pt required Levophed gtt due to acute hypotension. Home meds were held at this time. Pt was treated also with IV Vanco/Zosyn while assessing for bacterial/viral pneumonia vs above. Blood cultures obtained on admission h ave remained negative t/o hospitalization. Pt was seen by pulmonology on consultation ; pt was treated w/med nebs, flutter, IS, mucinex and required supplemental oxygen as pt also w/past medical history of smoking and likely w/undiagnosed COPD as well. Consultation was placed to GI due to anemia. was made aware of above and agrees w/possibility of Stelara as cause of resp issues. Pt will not continue Stelara at d/c and required no acute GI work up while inpt. Pt did have urinary retention during hospitalization. pt had bladder scan which was >600ml with PVR >400ml in spite of voiding. Pt require gill during hospitalization. Pt failed voiding trials and will need to follow with urology as outpatient. Pt was to have bronch on 05/09 however did have supratherapeutic INR level and require vitamin k x 1 dose. Bronch was held until Pt did have expected subtherapeutic INR levels following bronch and required Lovenox bridging once Coumadin was cleared to restart by pulm. Today INR is 1.95 and pt will discontinue Lovenox and start home Coumadin dosing tonight. HH to draw INR levels and pt to follow up as before. Pt underwent a desat study which revealed no need for home oxygen however pt's HR did increased to 130 range. I did hold discharge initially. Pt was resumed on Coreg as at home which nearly resolved tachycardia when up. Pt worked did have difficulty initially get out of bed over the last few days but has been working PT/nursing and has improved. PT seen pt again today and recommended that pt have HH/PT in the home. Pt is agreeable to this plan and has FWW. Pt was to continue carvedilol but will hold Entresto, spironolactone until seen by cardiology at follow up due to labile BP. Pt will Follow up w/ for other alternative to Stelara. Pt to follow up with urology due to urinary retention and failure w/voiding trials. Pt was also provided rescue inhaler and med nebs w/nebulizer machine for at home due to likely history of undiagnosed COPD/exacerbation. Pt was seen again today by pulm who cleared pt for discharge home. Case discussed with and pt will d/c home today in stable condition. Services Consulted Consult to Gastroenterology - Ordered -- 05/07/24 14:21:00 EST, + occult stool, anemia, Consult and Co-manage Consult to Pulmonology - Ordered -- 05/06/24 14:34:00 EST, RF, Consult and Co-manage Physical Exam Vitals & Measurements T: 36.5 ???C(Oral) TMIN: 36.3 ???C(Axillary) TMAX: 36.8 ???C(Oral) HR: 98(Monitored) RR: 18 BP: 124/77 SpO2: 92% HT: 172.72 cm WT: 66.6 kg General: Calm, able to communicate needs, NAD Head: Normocephalic/atraumatic Eyes: Pupils equal, round, Conjunctivae and sclerae normal, HEENT: Mucous membrane moist. Tongue normal Neck: Trache (more content not included)... [facility] Comment on above: Result Comment: Elec tronically Signed By: Azucena CROWLEY\.br\Date and Time Signed: 05/14/24 15:39 EST\.br\Electronically Co-Signed By: Pan Gar DO\.br\Date and Time Co-Signed: 05/15/24 09:59 EST 05-14-2024 Evaluation + Plan note Extrac jung from: Title:PCCM progress note Author:Kevon Duron PA-C, Lola Cardona Date:05/14/24 1. Acute hypoxic respiratory failure (J96.01: Acute respiratory failure with hypoxia) Suspect 2/2 opportunistic infection vs possible drug reaction Former smoker Plan: - Currently on RA - Titrate O2 for sats 92-96% - Continue bronchodilators - CTA chest revealed b/l GGO concerning for viral PNA vs inflammatory process. COVID and RVP are negative. Procal is negative. No leukocytosis. Pt recently received a Stelara injection for his UC. Unclear if this is contributing to his CT findings and respiratory failure. - Will treat his pulmonary infiltrates with empiric abx for now - CRP is improving - LDH is 452 --> concerning for possible PCP - S/p bronch (05/11) --> There were notable mucoid secretions in the lower lobes bilaterally. There are bronchiectatic changes in the airways. Bronchial washing was performed and sent for cultures/cytology. BAL from left lower lobe was performed and sent for culture/cytology and pneumocystis PCR and cell count - Encourage IS and OOB VTE ppx: Coumadin Ok to d/c from [facility] perspective Recommend f/u w/ PCP on already scheduled date of 05/24 for BAL results Recommend repeat CT chest in 3 months Addendum by Angelo STEWART, Pooja X on May 14, 2024 19:17:42 EST I have seen and evaluated the patient with the nurse practitioner. Her/his history, physical exam, assessment and plan were done in collaboration. I performed an independent physical examination. I agree with all the above Cultx from bronchoscopy are negative so far , PJP PCR is pending , Ok for DC and needs follow up imaging and PFT in 4-6 wks Extracted from: Title:Discharge Note Author:Martha CROWLEY Date:05/14/24 Discharge To, Anticipated II - Home with home health Discharge Diet(s): Regular (05/14/24 12:12:00) Prescriptions Albuterol (Eqv-Ventolin HFA) 90 mcg/inh inhalation aerosol, 180 mcg= 2 inh, Inhalation, q6hr atorvastatin 80 mg Tab, See Instructions Creon 36,000 units oral delayed release capsule, See Instructions, 3 refills ferrous sulfate 325 mg Tab, 325 mg= 1 tab(s), Oral, BIDWM ipratropium 0.02% Inh Alisha 2.5 mL, 500 mcg= 2.5 mL, NEB, QID levalbuterol 0.63 mg/3 mL Inh Alisha, 0.63 mg= 3 mL, Inhalation, QID omeprazole 40 mg Cap-DR, 40 mg= 1 cap(s), Oral, Daily, 3 refills Home carvedilol 12.5 mg Tab, 12.5 mg= 1 tab(s), Oral, BID Entresto 24 mg-26 mg oral tablet, 1 tab(s), Oral, BID One-A-Day Men's Health Formula, 1 tab(s), Oral, Daily spironolactone 25 mg Tab, 0.5 tab, Oral, Daily Vitamin D3 10,000 intl units oral capsule, 250 mcg= 1 cap(s), Oral, Daily warfarin 4 mg Tab, 4 mg= 1 tab(s), Oral, Daily With When Contact Information Pete Cong 05/24/2024 03:00 PM EST [address] [place] [address]- Business (2) Additional Instructions: Keep scheduled appointment Linda Enrique Additional Instructions: Dr. Enrique's office will call you for a follow up appointment. If you do not hear form them is a few days, then call for hospital followup appointment in regards to urinary retention /gill. Thank you. Eloisa Hassan [address], [address] [place] [phone] Business (1) Additional Instructions: Call for followup appointment 2 weeks. Pooja Stephens [address] [place] [phone] Business (1) Additional Instructions: Call for followup appointment 3 weeks Indwelling Urinary Catheter Insertion, Care After Acute Respiratory Failure, Adult Addendum by Azucena CROWLEY on May 14, 2024 15:39:16 EST Pt was to have bronch on 05/09 however did have supratherapeutic INR level and require vitamin k x 1 dose. Bronch was held until 05/11/24. Per pulm there are bronchiectatic changes in the airways. Bronchial washing was performed and sent for cultures/cytology. BAL from left lower lobe was performed and sent for culture/cytology and Pneumocystis PCR and cell count. pt was continued on antibiotic tx. The etiology of his pulmonary infiltrate is unclear could be related to infectious process will follow cultures. I think it is more likely related to inflammatory process and it could be chronic infiltrates from interstitial lung disease. Extracted from: Title:APSO Note Author:Melissa CROWLEY Date:05/13/24 PLAN: 1. 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 possible drug rxn to [facility], consider -Denies home 02, cpap, bipap -Currently requires 2Lpm NC to maintain pulse ox 92% of > per nursing pt. dropped < 88% during early a.m. and was placed back on NC on 05/10 -CTA chest: + b/l GGO concerning for viral PNA vs. inflamm. process -COVID Ag/PCR, PCT, Flu A/B, RVP - neg -> unclear causation of CTA findings -Supplemental 02 Consult PCCM: -s/p Bronch - 05/11 w/ cultures pending. -Cont. empiric abx. as below -05/10: transferred out of ICU Desat study performed 05/12 which showed no dropin SPO2 remains around 90%. HR did increase to 132 w/little exertion. 2. Shock (R57.9: Shock, unspecified) Suspect distributive shock 2/2 drug interaction (Sterlara) vs. adrenal insuff vs. possible sepsis -Pt. had abruptly stopped pred 60mg daily dosing after 30 days of tx. -> concern for adrenal insuff -> SDS initiated: IV hydrocortisone 100mg x 1 followed by 50mg q6hr -> however cortisol level was 24.1 -> unlikely cause -> DC'd -IVF 2L to date - off at present -05/06: Midodrine 5mg x 1 -IV levophed gtt. - off 05/10 -IV vanco/zosyn - rx. to dose -Resolved at present 3. Acute hypotension (I95.9: Hypotension, unspecified) Initially thought related anti-hypertensive meds c/w dehydration from poor po intake, pt. was given 2L IVF and unable to maintain MAP 65 or > -Hx. of low normotensive sbp low 100 range and dbp 40 -50 range Echo: EF 20-25%, severe LV dysfunction, LV mod. dilated, akinetic mid to distal anteroseptum, mid to distal ant. wall, apex and distal inf. wall. Mild TR, RVSP is 35mmHg, -Tx. as above Consult PCCM:-See note BP now seems stable. 4. PNA (pneumonia) (J18.9: Pneumonia, unspecified organism) Stelara can cause cryptogenic organizing pneumonia vs. eosinophilic pneumonitis however eosinophil level is 0 -MRSA swab: neg -Med nebs, flutter device, mucinex, supplemental 02 -Chest physiotherapy if warranted -Sputum cx. - pending -Bl. cx. - NGTD -Legionella antigen - pending -Recommend repeat CXR in 4 weeks as outpatient Consult PCCM: -05/07: transition IV azithro/ceftr to IV vanco/zosyn given recurrent hypotension 5. Pleural effusion on right (J90: Pleural effusion, not elsewhere classified) Per CTA -Caution w/ IVF 6. Acute sinusitis (J01.90: Acute sinusitis, unspecified) CT head: Right maxillary sinusitis, remote right frontal lobe infarct, mild cerebral atrophy with ventricular enlargement, mild ex-vacuo dilation anterior horn right lateral ventricle. -IV abx as above 7. Anemia (D64.9: Anemia, unspecified) Hx. of UC/PBC, c/w asa/warfarin now w/ supra-therapeutic INR -Baseline hgb. level - -03/2024: EGD: consistent w/ erosive gastropathy -03/2024: Cscope: Colitis changes in L colon compatible w/ prev. hx. of UC,, active L sided colitis -Anemia panel -> ferrous sulfate BID w/ daily miralax -Trend labs Consult GI: + occult stool likely 2/2 UC; -Supportive care; F/U in GI clinic 8. Urinary retention with incomplete bladder emptying (R33.9: Retention of urine, unspecified) W/ known hx. of BPH not on med tx. -Bladder scan > 600ml, PVR > 400ml in spite of void -Gill -Hold tamsulosin dosing 2/2 hypotension -Voiding trials 9. Acute kidney injury (N17.9: Acute kidney failure, unspecified) W/ known hx. of BPH not on med tx. -Bladder scan > 600ml, PVR > 400ml in spite of void -Gill -Hold tamsulosin dosing 2/2 hypotension -Voiding trials when approp. 10. Diarrhea (R19.7: Diarrhea, unspecified) 05/10: 3 stools overnight -Enteric panel, Cdiff - neg -Imodium if needed 11. Hypokalemia (E87.6: Hypokalemia) Replete K/Mag prn -Trend labs 12. 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 follows cardio at [facility], s/p ADARSH -Asa, atorvastatin, -Hold carvedilol, entresto, spironolactone 13. Chronic systolic heart failure (I50.22: Chronic systolic (congestive) heart failure) Pt. follows cardio at [facility], s/p ADARSH -Asa, atorvastatin, -Hold carvedilol, entresto, spironolactone 14. Paroxysmal A-fib (I48.0: Paroxysmal atrial fibrillation) -Hold carvedilol, -Warfarin 15. Supratherapeutic INR (R79.1: Abnormal coagulation profile) -05/09; Vt. K 10mg per PCCM -05/10: sub-therapeutic -> 1 dose of therapeutic lovenox, no HS dose 2/2 pending bronch in a.m. per PCCM -05/11: Will need therapeutic dosing post bronch until INR is therapeutic if PCCM is agreeable -Warfarin - rx. to dose -Trend labs 05/12 INR has been subtherapeutic since Vit K. Continue Lovenox bridge INR today 1.49 16. HTN (hypertension) (I10: Essential (primary) hypertension) -Cardiac meds as above 17. HLD (hyperlipidemia) (E78.5: Hyperlipidemia, unspecified) -Atorvastatin 18. Pancreatic insufficiency (K86.89: Other specified diseases of pancreas) -Creon - pt. may take from home supply 19. UC (ulcerative colitis) (K51.90: Ulcerative colitis, unspecified, without complications) UC per GI note -> in partial remission, + PBC -CT A/P: Hepatic steatosis, sigmoid diverticulosis -Pt. reports scant amt. of blood in his brief, he is unsure if it was from his penis or rectum - see above -IV Stelara on 05/03 at infusion clinic -> first dose Consult GI:-Hold all UC tx. for now - discuss future options as outpt. 20. BPH (benign prostatic hyperplasia) (N40.0: Benign prostatic hyperplasia without lower urinary tract symptoms) -See above 21. History of CVA with residual deficit (I69.30: Unspecified sequelae of cerebral infarction) Chronic residual L hemiplegia -Asa, atorvastatin 22. On deep vein thrombosis (DVT) prophylaxis (Z79.899: Other long distance operator (current) drug therapy) -Warfarin, early ambulation -Plan discussed w/ patient, nursing staff and CRM. This report was transcribed using voice recognition software. Every effort was made to ensure accuracy, however, inadvertently computerized news library director mistakes may be present. Extracted from: Title:APSO Note Author:Serene Fitzgerald Date:05/12/24 1. 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 There were notable mucoid secretions in the lower lobes bilaterally. There are bronchiectatic changes in the airways. Bronchial washing was performed and sent for cultures/cytology. BAL from left lower lobe was performed and sent for culture/cytology and pneumocystis PCR and cell count The etiology of his pulmonary infiltrate is unclear could be related to infectious process will follow cultures. I think it is more likely related to inflammatory process and it could be chronic infiltrates from interstitial lung disease. Will complete course of antibiotic, follow bronchoscopy results. Pharmacy assisting with coumadin management Evaluate need for oxygen prior to discharge GI ppx: PPI Extracted from: Title:APSO Note Author:Melissa CROWLEY Date:05/12/24 1. 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 possible drug rxn to [facility] Souza -Denies home 02, cpap, bipap -Currently requires 2Lpm NC to maintain pulse ox 92% of > per nursing pt. dropped < 88% during early a.m. and was placed back on NC on 05/10 -CTA chest: + b/l GGO concerning for viral PNA vs. inflamm. process -COVID Ag/PCR, PCT, Flu A/B, RVP - neg -> unclear causation of CTA findings -Supplemental 02 Consult PCCM: -s/p Bronch - 05/11 w/ cultures pending. -Cont. empiric abx. as below -05/10: transferred out of ICU Desat study pending. 2. Shock (R57.9: Shock, unspecified) Suspect distributive shock 2/2 drug interaction (Sterlara) vs. adrenal insuff vs. possible sepsis -Pt. had abruptly stopped pred 60mg daily dosing after 30 days of tx. -> concern for adrenal insuff -> SDS initiated: IV hydrocortisone 100mg x 1 followed by 50mg q6hr -> however cortisol level was 24.1 -> unlikely cause -> DC'd -IVF 2L to date - off at present -05/06: Midodrine 5mg x 1 -IV levophed gtt. - off 05/10 -IV vanco/zosyn - rx. to dose -Resolved at present 3. Acute hypotension (I95.9: Hypotension, unspecified) Initially thought related anti-hypertensive meds c/w dehydration from poor po intake, pt. was given 2L IVF and unable to maintain MAP 65 or > -Hx. of low normotensive sbp low 100 range and dbp 40 -50 range Echo: EF 20-25%, severe LV dysfunction, LV mod. dilated, akinetic mid to distal anteroseptum, mid to distal ant. wall, apex and distal inf. wall. Mild TR, RVSP is 35mmHg, -Tx. as above Consult PCCM:-See note BP now seems stable. 4. PNA (pneumonia) (J18.9: Pneumonia, unspecified organism) Stelara can cause cryptogenic organizing pneumonia vs. eosinophilic pneumonitis however eosinophil level is 0 -MRSA swab: neg -Med nebs, flutter device, mucinex, supplemental 02 -Chest physiotherapy if warranted -Sputum cx. - pending -Bl. cx. - NGTD -Legionella antigen - pending -Recommend repeat CXR in 4 weeks as outpatient Consult PCCM: -05/07: transition IV azithro/ceftr to IV vanco/zosyn given recurrent hypotension 5. Pleural effusion on right (J90: Pleural effusion, not elsewhere classified) Per CTA -Caution w/ IVF 6. Acute sinusitis (J01.90: Acute sinusitis, unspecified) CT head: Right maxillary sinusitis, remote right frontal lobe infarct, mild cerebral atrophy with ventricular enlargement, mild ex-vacuo dilation anterior horn right lateral ventricle. -IV abx as above 7. Anemia (D64.9: Anemia, unspecified) Hx. of UC/PBC, c/w asa/warfarin now w/ supra-therapeutic INR -Baseline hgb. level - 13 -03/2024: EGD: consistent w/ erosive gastropathy -03/2024: Cscope: Colitis changes in L colon compatible w/ prev. hx. of UC,, active L sided colitis -Anemia panel -> ferrous sulfate BID w/ daily miralax -Trend labs Consult GI: + occult stool likely 2/2 UC; -Supportive care; F/U in GI clinic 8. Urinary retention with incomplete bladder emptying (R33.9: Retention of urine, unspecified) W/ known hx. of BPH not on med tx. -Bladder scan > 600ml, PVR > 400ml in spite of void -Gill -Hold tamsulosin dosing 2/2 hypotension -Voiding trials 9. Acute kidney injury (N17.9: Acute kidney failure, unspecified) W/ known hx. of BPH not on med tx. -Bladder scan > 600ml, PVR > 400ml in spite of void -Gill -Hold tamsulosin dosing 2/2 hypotension -Voiding trials when approp. 10. Diarrhea (R19.7: Diarrhea, unspecified) 05/10: 3 stools overnight -Enteric panel, Cdiff - neg -Imodium if needed 11. Hypokalemia (E87.6: Hypokalemia) Replete K/Mag prn -Trend labs 12. 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 follows cardio at [facility], s/p ADARSH -Asa, atorvastatin, -Hold carvedilol, entresto, spironolactone 13. Chronic systolic heart failure (I50.22: Chronic systolic (congestive) heart failure) Pt. follows cardio at [facility], s/p ADARSH -Asa, atorvastatin, -Hold carvedilol, entresto, spironolactone 14. Paroxysmal A-fib (I48.0: Paroxysmal atrial fibrillation) -Hold carvedilol, -Warfarin 15. Supratherapeutic INR (R79.1: Abnormal coagulation profile) -05/09; Vt. K 10mg per PCCM -05/10: sub-therapeutic -> 1 dose of therapeutic lovenox, no HS dose 2/2 pending bronch in a.m. per PCCM -05/11: Will need therapeutic dosing post bronch until INR is therapeutic if PCCM is agreeable -Warfarin - rx. to dose -Trend labs 05/12 INR has been subtherapeutic since Vit K. Continue Lovenox bridge INR today 1.11 16. HTN (hypertension) (I10: Essential (primary) hypertension) -Cardiac meds as above 17. HLD (hyperlipidemia) (E78.5: Hyperlipidemia, unspecified) -Atorvastatin 18. Pancreatic insufficiency (K86.89: Other specified diseases of pancreas) -Creon - pt. may take from home supply 19. UC (ulcerative colitis) (K51.90: Ulcerative colitis, unspecified, without complications) UC per GI note -> in partial remission, + PBC -CT A/P: Hepatic steatosis, sigmoid diverticulosis -Pt. reports scant amt. of blood in his brief, he is unsure if it was from his penis or rectum - see above -IV Stelara on 05/03 at infusion clinic -> first dose Consult GI:-Hold all UC tx. for now - discuss future options as outpt. 20. BPH (benign prostatic hyperplasia) (N40.0: Benign prostatic hyperplasia without lower urinary tract symptoms) -See above 21. History of CVA with residual deficit (I69.30: Unspecified sequelae of cerebral infarction) Chronic residual L hemiplegia -Asa, atorvastatin 22. On deep vein thrombosis (DVT) prophylaxis (Z79.899: Other long distance operator (current) drug therapy) -Warfarin, early ambulation -Plan discussed w/ patient, nursing staff and CRM. This report was transcribed using voice recognition software. Every effort was made to ensure accuracy, however, inadvertently computerized news library director mistakes may be present. Orders: Oxygen Desaturation Study Extracted from: Title:APSO Note Author:Elizabeth METZGER ate:05/11/24 1. 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 possible drug rxn to [facility], consider -Denies home 02, cpap, bipap -Currently requires 2Lpm NC to maintain pulse ox 92% of > per nursing pt. dropped < 88% during early a.m. and was placed back on NC on 05/10 -CTA chest: + b/l GGO concerning for viral PNA vs. inflamm. process -COVID Ag/PCR, PCT, Flu A/B, RVP - neg -> unclear causation of CTA findings -Supplemental 02 Consult PCCM: -Bronch - pending -Cont. empiric abx. as below -05/10: transferred out of ICU 2. Shock (R57.9: Shock, unspecified) Suspect distributive shock 2/2 drug interaction (Sterlara) vs. adrenal insuff vs. possible sepsis - ruled out w/ neg. infectious w/u - abx are emperical -Pt. had abruptly stopped pred 60mg daily dosing after 30 days of tx. -> concern for adrenal insuff -> SDS initiated: IV hydrocortisone 100mg x 1 followed by 50mg q6hr -> however cortisol level was 24.1 -> unlikely cause -> DC'd -IVF 2L to date - off at present -05/06: Midodrine 5mg x 1 -IV levophed gtt. - off 05/10 -IV vanco/zosyn - rx. to dose -Resolved at present 3. Acute hypotension (I95.9: Hypotension, unspecified) Initially thought related anti-hypertensive meds c/w dehydration from poor po intake, pt. was given 2L IVF and unable to maintain MAP 65 or > -Hx. of low normotensive sbp low 100 range and dbp 40 -50 range Echo: EF 20-25%, severe LV dysfunction, LV mod. dilated, akinetic mid to distal anteroseptum, mid to distal ant. wall, apex and distal inf. wall. Mild TR, RVSP is 35mmHg, -Tx. as above Consult PCCM: -See note 4. PNA (pneumonia) (J18.9: Pneumonia, unspecified organism) Stelara can cause cryptogenic organizing pneumonia vs. eosinophilic pneumonitis however eosinophil level is 0 + immunocompromised 2/2 stelara -MRSA swab: neg -Med nebs, flutter device, mucinex, supplemental 02 -Chest physiotherapy if warranted -Sputum cx. - pending -Bl. cx. - NGTD -Legionella antigen - pending -Recommend repeat CXR in 4 weeks as outpatient Consult PCCM: -05/07: transition IV azithro/ceftr to IV vanco/zosyn given recurrent hypotension 5. Pleural effusion on right (J90: Pleural effusion, not elsewhere classified) Per CTA -Caution w/ IVF 6. Acute sinusitis (J01.90: Acute sinusitis, unspecified) CT head: Right maxillary sinusitis, remote right frontal lobe infarct, mild cerebral atrophy with ventricular enlargement, mild ex-vacuo dilation anterior horn right lateral ventricle. -IV abx as above 7. Anemia (D64.9: Anemia, unspecified) Hx. of UC/PBC, c/w asa/warfarin now w/ supra-therapeutic INR -Baseline hgb. level - -03/2024: EGD: Sm. HH, mild Schatzki ring at GI junction, dilation performed, patchy erythema w/ scattered erosions consistent w/ erosive gastropathy s/p bx. -03/2024: Cscope: Colitis changes in L colon compatible w/ prev. hx. of UC, + diverticulosis, lg. internal hemorrhoids, active L sided colitis, diverticulosis. -No acute bleeding noted, hemodynamically stable -Hepatic panel - elevated AST -Anemia panel -> ferrous sulfate BID w/ daily miralax -Trend labs Consult GI: + occult stool likely 2/2 UC -Supportive care -CRP, stool calprotectin -F/U in GI clinic 8. Urinary retention with incomplete bladder emptying (R33.9: Retention of urine, unspecified) W/ known hx. of BPH not on med tx. -Bladder scan > 600ml, PVR > 400ml in spite of void -Gill -Hold tamsulosin dosing 2/2 hypotension -Voiding trials 9. Acute kidney injury (N17.9: Acute kidney failure, unspecified) W/ known hx. of BPH not on med tx. -Bladder scan > 600ml, PVR > 400ml in spite of void -Gill -Hold tamsulosin dosing 2/2 hypotension -Voiding trials when approp. 10. Diarrhea (R19.7: Diarrhea, unspecified) 05/10: 3 stools overnight -Enteric panel, Cdiff - neg -Imodium if needed 11. Hypokalemia (E87.6: Hypokalemia) Replete K/Mag prn -Trend labs 12. 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 follows cardio at [facility], s/p ADARSH -Asa, atorvastatin, -Hold carvedilol, entresto, spironolactone 13. Chronic systolic heart failure (I50.22: Chronic systolic (congestive) heart failure) Pt. follows cardio at [facility], s/p ADARSH -Asa, atorvastatin, -Hold carvedilol, entresto, spironolactone 14. Paroxysmal A-fib (I48.0: Paroxysmal atrial fibrillation) -Hold carvedilol, -Warfarin 15. Supratherapeutic INR (R79.1: Abnormal coagulation profile) -05/09; Vt. K 10mg per PCCM -05/10: sub-therapeutic -> 1 dose of therapeutic lovenox, no HS dose 2/2 pending bronch in a.m. per PCCM -05/11: Will need therapeutic dosing post bronch until INR is therapeutic if PCCM is agreeable -Warfarin - rx. to dose -Trend labs 16. HTN (hypertension) (I10: Essential (primary) hypertension) -Cardiac meds as above 17. HLD (hyperlipidemia) (E78.5: Hyperlipidemia, unspecified) -Atorvastatin 18. Pancreatic insufficiency (K86.89: Other specified diseases of pancreas) -Creon - pt. may take from home supply 19. UC (ulcerative colitis) (K51.90: Ulcerative colitis, unspecified, without complications) UC per GI note -> in partial remission, + PBC -CT A/P: Hepatic steatosis, sigmoid diverticulosis -Pt. reports scant amt. of blood in his brief, he is unsure if it was from his penis or rectum - see above -IV Stelara on 05/03 at infusion clinic -> first dose Consult GI: -Hold all UC tx. for now - discuss future options as outpt. 20. BPH (benign prostatic hyperplasia) (N40.0: Benign prostatic hyperplasia without lower urinary tract symptoms) -See above 21. History of CVA with residual deficit (I69.30: Unspecified sequelae of cerebral infarction) Chronic residual L hemiplegia -Asa, atorvastatin 22. On deep vein thrombosis (DVT) prophylaxis (Z79.899: Other long distance operator (current) drug therapy) -Warfarin, early ambulation Orders: enoxaparin, 60 mg = 0.6 mL, Injection, SubCutaneous, Once, Stop date 05/10/24 11:00:00 EST, Routine, Start date 05/10/24 11:00:00 EST, Per Cade WALSH given sub-theraputic INR today, 05/10/24 10:52:00 EST potassium chloride + Generic Diluent 100 mL, 20 mEq = 100 mL, IV Piggyback, q2hr for 3 dose(s), Stop date 05/11/24 16:59:00 EST, Routine, Start date 05/11/24 11:00:00 EST, 50 mL/hr, Infuse over 2 hour(s), 05/11/24 10:11:00 EST Basic Metabolic Panel Cardiac Monitoring Clostridium difficile by PCR Clostridium Difficile PCR Communication Order Physician to Nursing eGFR Enteric Panel by PCR Hemoglobin and Hematocrit Magnesium Level Pulse Oximetry Continuous Transfer Patient -Plan discussed w/ patient, nursing staff and CRM. This report was transcribed using voice recognition software. Every effort was made to ensure accuracy, however, inadvertently computerized news library director mistakes may be present. Extracted from: Title:PCCM progress note Author:Lola Lund Jr., PA-C. Date:05/10/24 1. Acute hypoxic respiratory failure (J96.01: Acute respiratory failure with hypoxia) Suspect 2/2 opportunistic infection vs possible drug reaction Former smoker Plan: - Currently on RA - Titrate O2 for sats 92-96% - Continue bronchodilators - CTA chest revealed b/l GGO concerning for viral PNA vs inflammatory process. COVID and RVP are negative. Procal is negative. No leukocytosis. Pt recently received a Stelara injection for his UC. Unclear if this is contributing to his CT findings and respiratory failure. - Will treat his pulmonary infiltrates with empiric abx for now - CRP is improving - LDH is 452 --> concerning for possible PCP - Discussed the case w/ Dr. Stephens. Will plan for bronch Tuesday. - Encourage IS and OOB VTE ppx: Lovenox GI ppx: PPI Orders: NPO Diet Extracted from: Title:APSO Note Author:Elizabeth METZGER ate:05/10/24 1. 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 possible drug rxn to [facility], ar[facility] -Denies home 02, cpap, bipap -Currently requires 2Lpm NC to maintain pulse ox 92% of > per nursing pt. dropped < 88% during early a.m. and was placed back on NC. -CTA chest: + b/l GGO concerning for viral PNA vs. inflamm. process -COVID Ag/PCR, PCT, Flu A/B, RVP - neg -> unclear causation of CTA findings -Supplemental 02 Consult PCCM: -Hold bronch 2/2 elevated INR - plan for 05/11 -Cont. empiric abx. as below -May transfer out of ICU if bed needed. Ordered: Critical Care Ill/Injured Pt Initial 30-74 Min [id number] 2. Shock (R57.9: Shock, unspecified) Suspect distributive shock 2/2 drug interaction (Sterlara) vs. adrenal insuff vs. possible sepsis -Pt. had abruptly stopped pred 60mg daily dosing after 30 days of tx. -> concern for adrenal insuff -> SDS initiated: IV hydrocortisone 100mg x 1 followed by 50mg q6hr -> however cortisol level was 24.1 -> unlikely cause -> DC'd -IVF 2L to date - off at present -05/06: Midodrine 5mg x 1 -IV levophed gtt. - off at present -IV vanco/zosyn - rx. to dose -Resolved at present 3. Acute hypotension (I95.9: Hypotension, unspecified) Initially thought related anti-hypertensive meds c/w dehydration from poor po intake, pt. was given 2L IVF and unable to maintain MAP 65 or > -Hx. of low normotensive sbp low 100 range and dbp 40 -50 range Echo: EF 20-25%, severe LV dysfunction, LV mod. dilated, akinetic mid to distal anteroseptum, mid to distal ant. wall, apex and distal inf. wall. Mild TR, RVSP is 35mmHg, -Tx. as above Consult PCCM: -See note 4. PNA (pneumonia) (J18.9: Pneumonia, unspecified organism) Stelara can cause cryptogenic organizing pneumonia vs. eosinophilic pneumonitis however eosinophil level is 0 -MRSA swab: neg -Med nebs, flutter device, mucinex, supplemental 02 -Chest physiotherapy if warranted -Sputum cx. - pending -Bl. cx. - NGTD -Legionella antigen - pending -Recommend repeat CXR in 4 weeks as outpatient Consult PCCM: -05/07: transition IV azithro/ceftr to IV vanco/zosyn given recurrent hypotension 5. Pleural effusion on right (J90: Pleural effusion, not elsewhere classified) Per CTA -Caution w/ IVF 6. Acute sinusitis (J01.90: Acute sinusitis, unspecified) Per CTA -Caution w/ IVF 7. Anemia (D64.9: Anemia, unspecified) Hx. of UC/PBC, c/w asa/warfain now w/ supra-therapeutic INR -Baseline hgb. level - : EGD: Sm. HH, mild Schatzki ring at GI junction, dilation performed, patchy erythema w/ scattered erosions consistent w/ erosive gastropathy s/p bx. -03/2024: Cscope: Colitis changes in L colon compatible w/ prev. hx. of UC, + diverticulosis, lg. internal hemorrhoids, active L sided colitis, diverticulosis. -No acute bleeding noted, hemodynamically stable -Hepatic panel - elevated AST -Anemia panel -> ferrous sulfate BID w/ daily miralax -Trend labs Consult GI: + occult stool likely 2/2 UC -Supportive care -CRP, stool calprotectin -F/U in GI clinic 8. Urinary retention with incomplete bladder emptying (R33.9: Retention of urine, unspecified) W/ known hx. of BPH not on med tx. -Bladder scan > 600ml, PVR > 400ml in spite of void -Gill -Hold tamsulosin dosing 2/2 hypotension -Voiding trials when approp. 9. Acute kidney injury (N17.9: Acute kidney failure, unspecified) W/ known hx. of BPH not on med tx. -Bladder scan > 600ml, PVR > 400ml in spite of void -Gill -Hold tamsulosin dosing 2/2 hypotension -Voiding trials when approp. 10. Diarrhea (R19.7: Diarrhea, unspecified) 3 stools overnight -Enteric panel, Cdiff - pending 11. 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 follows cardio at [facility], s/p ADARSH -Asa, atorvastatin, -Hold carvedilol, entresto, spironolactone 12. Chronic systolic heart failure (I50.22: Chronic systolic (congestive) heart failure) Pt. follows cardio at [facility], s/p ADARSH -Asa, atorvastatin, -Hold carvedilol, entresto, spironolactone 13. Paroxysmal A-fib (I48.0: Paroxysmal atrial fibrillation) -Hold carvedilol, -Warfarin 14. Supratherapeutic INR (R79.1: Abnormal coagulation profile) -05/09; Vt. K 10mg per PCCM -Hold warfarin -Trend labs 15. HTN (hypertension) (I10: Essential (primary) hypertension) -Cardiac meds as above 16. HLD (hyperlipidemia) (E78.5: Hyperlipidemia, unspecified) -Atorvastatin 17. Pancreatic insufficiency (K86.89: Other specified diseases of pancreas) -Creon - pt. may take from home supply 18. UC (ulcerative colitis) (K51.90: Ulcerative colitis, unspecified, without complications) UC per GI note -> in partial remission, + PBC -CT A/P: Hepatic steatosis, sigmoid diverticulosis -Pt. reports scant amt. of blood in his brief, he is unsure if it was from his penis or rectum - see above -IV Stelara on 05/03 at infusion clinic -> first dose Consult GI: -Hold all UC tx. for now - discuss future options as outpt. 19. BPH (benign prostatic hyperplasia) (N40.0: Benign prostatic hyperplasia without lower urinary tract symptoms) -See above 20. History of CVA with residual deficit (I69.30: Unspecified sequelae of cerebral infarction) Chronic residual L hemiplegia -Asa, atorvastatin 21. On deep vein thrombosis (DVT) prophylaxis (Z79.899: Other mcfp (current) drug therapy) -Warfarin, early ambulation Orders: Clostridium Difficile PCR Enteric Panel by PCR Legionella Antigen Urine Pulse Oximetry Continuous -Plan discussed w/ patient, nursing staff and CRM. This report was transcribed using voice recognition software. Every effort was made to ensure accuracy, however, inadvertently computerized news library director mistakes may be present. Addendum by Elizabeth METZGER on May 10, 2024 10:53:47 EST Per PCCM given subtherapeutic INR this a.m., give 1 dose of therapeutic lovenox, no further dosing as he is pending bronch in a.m. Extracted from: Title:Inpatient Consultation Gastroenterology Author:Eloisa Hassan MD Date:05/09/24 Impression and Plan Education and Follow-up: Counseled. UC- in partial remission PBC occult blood in the stool GOO on imaging Plan: Patient was findings concerning for infectious pneumonia. ? Steroids or ustekinumab related. Agree with holding all treatments for UC for now I will discuss future options in the office after discharging him from the hospital No need for any intervention for occult blood in the stool since is likely secondary to his use Worsened while stopped as an outpatient since he developed reaction to it Supportive treatment per primary team Obtain CRP and stool calprotectin Patient to follow-up after discharge Extracted from: Title:APSO Note Author:Melissa CROWLEY Date:05/09/24 Awaiting cardio records w/ e truong from [facility] 1. Acute hypoxic respiratory failure (J96.01: Acute respiratory failure with hypoxia) 2/2 opportunistic infection vs possible drug reaction to Stelara. 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 COVID and RVP are negative. Procal is negative. No leukocytosis. -COVID Ag/PCR, PCT, Flu A&B, RVP - neg -> unclear causation of his CTA findings -Supplemental O2 Consult PCCM: bronch today cancelled d/t INR pendingn now on Tuesday Pulm. infiltrates tx w/empiric antbx for now. 2. Shock (R57.9: Shock, unspecified) POA -Suspect distributive shock 2/2 adrenal insufficiency vs possible sepsis--improving. -04/03: Pt. started pred 20mg TID then abruptly stopped on 04/29 prior to Stelara on 05/03 -> concern for adrenal insuff. 2/2 abrupt discont. of pred after approx. 1 month of dosing; ---> IV hydrocortisone q6---Cortisol level added to ED labs and resulted as 24.1, making adrenal insufficiency very unlikely. d/c steroids. -IV norepi gtt. for MAP < 65 ---weaned off last night. -IV abx. as below -Hold entresto, spironolactone, carvedilol -Echo: EF 20-25%, severe LV dysfunction, LV moderately dilated, akinetic mid to distal anteroseptum, mid to distal anterior wall, apex and distal inferior wall. Mild TR, RVSP is 35 mmHg. Consult PCCM: defer mgt. 3. Acute hypotension (I95.9: Hypotension, unspecified) Initially thought related anti-hypertensive meds c/w dehydration from poor po intake, pt. was given 2L IVF and unable to maintain MAP 65 or > -Hx. of low normotensive sbp low 100 range and dbp 40 -50 range -See above 4. PNA (pneumonia) (J18.9: Pneumonia, unspecified organism) Stelara can cause cryptogenic organizing pneumonia vs. eosinophilic pneumonitis however eosinophil level is 0 -Med nebs, flutter device, mucinex, supplemental 02 -Chest physiotherapy if warranted -Sputum cx. - pending -Bl. cx. 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 5. Pleural effusion on right (J90: Pleural effusion, not elsewhere classified) Per CTA -Caution w/ IVF 6. Acute sinusitis (J01.90: Acute sinusitis, unspecified) CT head: Right maxillary sinusitis, remote right frontal lobe infarct, mild cerebral atrophy with ventricular enlargement, mild ex-vacuo dilation anterior horn right lateral ventricle. -IV abx as above 7. Anemia (D64.9: Anemia, unspecified) Baseline hgb. level - 13 -No acute bleeding noted, hemodynamically stable -Hepatic panel - elevated AST -Anemia panel -> ferrous sulfate BID w/ daily miralax -Trend labs + Hemoccult stool -Consult GI: pending 8. Urinary retention with incomplete bladder emptying (R33.9: Retention of urine, unspecified) W/ known hx. of BPH not on med tx. -Bladder scan > 600ml, PVR > 400ml in spite of void -Gill -Hold tamsulosin dosing 2/2 hypotension -Voiding trials when approp. 9. Acute kidney injury (N17.9: Acute kidney failure, unspecified) 2/2 dehydration w/shock. now resolved. -Baseline Cr 1.0 -Hold spironolactone resume as soon as possible given known HF -Trend BMP and replace lytes as needed. 10. 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 follows cardio at [facility], s/p ADARSH -Asa, atorvastatin, -Hold carvedilol, Entresto, spironolactone Records from [facility] pending. 11. Chronic systolic heart failure (I50.22: Chronic systolic (congestive) heart failure) w/ AICD in situ + BNP 93 - caution w/ IVF as above -Cardiac meds as above 12. Paroxysmal A-fib (I48.0: Paroxysmal atrial fibrillation) -Hold carvedilol, -Warfarin--supratherapeutic INR again today no 6.51 after receiving 8mg of Coumadin 1/20 Vitamin K 10mg per pccm. Rx dosing Coumadin holding dose today. 13. HTN (hypertension) (I10: Essential (primary) hypertension) -Cardiac meds as above 14. HLD (hyperlipidemia) (E78.5: Hyperlipidemia, unspecified) -Atorvastatin 15. Pancreatic insufficiency (K86.89: Other specified diseases of pancreas) -Creon - pt. may take from home supply 16. UC (ulcerative colitis) (K51.90: Ulcerative colitis, unspecified, without complications) -CT A/P: Hepatic steatosis, sigmoid diverticulosis Stool occult positive but no real drop in Hgb. -Pt. reports scant amt. of blood in his brief, he is unsure if it was from his penis or rectum - see above -IV sterlara on 05/03 at infusion clinic 17. BPH (benign prostatic hyperplasia) (N40.0: Benign prostatic hyperplasia without lower urinary tract symptoms) -See above 18. History of CVA with residual deficit (I69.30: Unspecified sequelae of cerebral infarction) Chronic residual L hemiplegia -Asa, atorvastatin, 19. On deep vein thrombosis (DVT) prophylaxis (Z79.899: Other mcfp (current) drug therapy) -Warfarin, early ambulation -Plan discussed w/ patient, nursing staff and CRM. 65 Minutes of critical care time performed. -The following was considered in the determination of critical care time but not limited to the level of medical decision-making, intensive cardiac and/or resp. frequent v.s. monitoring, evaluation of laboratory & radiographic studies, oxygen monitoring and constant monitoring/evaluation. This patient has a high probability of sudden, clinically significant deterioration, which requires the highest level of ACNP preparedness to intervene urgently. I managed/supervised life or organ supporting interventions that required frequent physical assessment. The time I spent with family or surrogate(s) is included only if the patient was incapable of providing the necessary information or participating in medical decision making. Critical care dx./documentation: 113. This report was transcribed using voice recognition software. Every effort was made to ensure accuracy, however, inadvertently computerized news library director mistakes may be present. Extracted from: Title:APSO Note Author:Melissa CROWLEY Date:05/08/24 Awaiting cardio records w/ e cho from [facility] 1. Acute hypoxic respiratory failure (J96.01: Acute respiratory failure with hypoxia) 2/2 opportunistic infection vs possible drug reaction to Stelara. 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 COVID and RVP are negative. Procal is negative. No leukocytosis. -COVID Ag/PCR, PCT, Flu A&B, RVP - neg -> unclear causation of his CTA findings -Supplemental O2 Consult PCCM: pending bronch in AM. Pulm. infiltrates tx w/empiric antbx for now. 2. Shock (R57.9: Shock, unspecified) POA -Suspect distributive shock 2/2 adrenal insufficiency vs possible sepsis -04/03: Pt. started pred 20mg TID then abruptly stopped on 04/29 prior to Stelara on 05/03 -> concern for adrenal insuff. 2/2 abrupt discont. of pred after approx. 1 month of dosing; ---> IV hydrocortisone q6---Cortisol level added to ED labs and resulted as 24.1, making adrenal insufficiency very unlikely. d/c steroids. -IV norepi gtt. for MAP < 65 ---required during the night but off again today. -IV abx. as below -Hold entresto, spironolactone, carvedilol -Echo: EF 20-25%, severe LV dysfunction, LV moderately dilated, akinetic mid to distal anteroseptum, mid to distal anterior wall, apex and distal inferior wall. Mild TR, RVSP is 35 mmHg. -Awaiting echo reports from [facility] for comparison Consult PCCM: defer mgt. 3. Acute hypotension (I95.9: Hypotension, unspecified) Initially thought related anti-hypertensive meds c/w dehydration from poor po intake, pt. was given 2L IVF and unable to maintain MAP 65 or > -Hx. of low normotensive sbp low 100 range and dbp 40 -50 range -See above 4. PNA (pneumonia) (J18.9: Pneumonia, unspecified organism) Stelara can cause cryptogenic organizing pneumonia vs. eosinophilic pneumonitis however eosinophil level is 0 -Med nebs, flutter device, mucinex, supplemental 02 -Chest physiotherapy if warranted -Sputum cx. - pending -Bl. cx. 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 5. Pleural effusion on right (J90: Pleural effusion, not elsewhere classified) Per CTA -Caution w/ IVF 6. Acute sinusitis (J01.90: Acute sinusitis, unspecified) CT head: Right maxillary sinusitis, remote right frontal lobe infarct, mild cerebral atrophy with ventricular enlargement, mild ex-vacuo dilation anterior horn right lateral ventricle. -IV abx as above 7. Anemia (D64.9: Anemia, unspecified) Baseline hgb. level - 13 -No acute bleeding noted, hemodynamically stable -Hepatic panel - elevated AST -Anemia panel -> ferrous sulfate BID w/ daily miralax -Trend labs + Hemoccult stool -Consult GI: pending 8. Urinary retention with incomplete bladder emptying (R33.9: Retention of urine, unspecified) W/ known hx. of BPH not on med tx. -Bladder scan > 600ml, PVR > 400ml in spite of void -Gill -Hold tamsulosin dosing 2/2 hypotension -Voiding trials when approp. 9. Acute kidney injury (N17.9: Acute kidney failure, unspecified) 2/2 dehydration w/shock. now resolved. -Baseline Cr 1.0 -Hold spironolactone resume as soon as possible given known HF -Trend BMP and replace lytes as needed. 10. 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 follows cardio at [facility], s/p ADARSH -Asa, atorvastatin, -Hold carvedilol, entresto, spironolactone Records from [facility] pending. 11. Chronic systolic heart failure (I50.22: Chronic systolic (congestive) heart failure) w/ AICD in situ + BNP 93 - caution w/ IVF as above -Cardiac meds as above 12. Paroxysmal A-fib (I48.0: Paroxysmal atrial fibrillation) -Hold carvedilol, -Warfarin--supratherapeutic INR today after receiving 8mg of Coumadin last night. Rx dosing Coumadin holding dose today. 13. HTN (hypertension) (I10: Essential (primary) hypertension) -Cardiac meds as above 14. HLD (hyperlipidemia) (E78.5: Hyperlipidemia, unspecified) -Atorvastatin 15. Pancreatic insufficiency (K86.89: Other specified diseases of pancreas) -Creon - pt. may take from home supply 16. UC (ulcerative colitis) (K51.90: Ulcerative colitis, unspecified, without complications) -CT A/P: Hepatic steatosis, sigmoid diverticulosis Stool occult positive but no real drop in Hgb. -Pt. reports scant amt. of blood in his brief, he is unsure if it was from his penis or rectum - see above -IV sterlara on 05/03 at infusion clinic 17. BPH (benign prostatic hyperplasia) (N40.0: Benign prostatic hyperplasia without lower urinary tract symptoms) -See above 18. History of CVA with residual deficit (I69.30: Unspecified sequelae of cerebral infarction) Chronic residual L hemiplegia -Asa, atorvastatin, 19. On deep vein thrombosis (DVT) prophylaxis (Z79.899: Other mcfp (current) drug therapy) -Warfarin, early ambulation -Plan discussed w/ patient, nursing staff and CRM. 70 Minutes of critical care time performed. -The following was considered in the determination of critical care time but not limited to the level of medical decision-making, intensive cardiac and/or resp. frequent v.s. monitoring, evaluation of laboratory & radiographic studies, oxygen monitoring and constant monitoring/evaluation. This patient has a high probability of sudden, clinically significant deterioration, which requires the highest level of ACNP preparedness to intervene urgently. I managed/supervised life or organ supporting interventions that required frequent physical assessment. The time I spent with family or surrogate(s) is included only if the patient was incapable of providing the necessary information or participating in medical decision making. Critical care dx./documentation: 04-30. This report was transcribed using voice recognition software. Every effort was made to ensure accuracy, however, inadvertently computerized news library director mistakes may be present. Extracted from: Title:APSO Note Author:Elizabeth METZGER ate:05/07/24 Awaiting cardio records w/ e cho from [facility] 1. Acute hypoxic respiratory failure (J96.01: Acute respiratory failure with hypoxia) 2/2 PNA +/- drug rxn (Stelara) -Denies home 02, Cpap, Biapap use -> currently requiring 3Lpm NC to maintain pulse ox 92% or > -Initial ABG: pH 7.49, PaCO2 32.9, PaO2 41.6, HCO3 25.9 on room air + SOB/BRITTON, + conversational dyspnea - CTA chest: No PE, b/l peripheral GGO, greater on right, findings may be seen in patients with COVID-19 pneumonia, however other infectious inflammatory etiologies provide similar radiographic appearance, small right pleural effusions, 1 cm right pericardial lymph node enlargement. -COVID Ag/PCR, PCT, Flu A&B, RVP - neg -> unclear causation of his CTA findings -Supplemental O2 -Desat study prior to d/c -See below Consult PCCM: Plan apprec. Ordered: Critical Care Ill/Injured Pt Initial 30-74 Min [id number] 2. Shock (R57.9: Shock, unspecified) POA -Acute hypotension likely distributive shock 2/2 adrenal insuff. vs. septic shock given neg. infectious w/u so far. -04/03: Pt. started pred 20mg TID then abruptly stopped on 04/29 prior to Stelara on 05/03 -> concern for adrenal insuff. 2/2 abrupt discont. of pred after approx. 1 month of dosing ---> IV hydrocortisone 100mg x 1, followed by 50mg q6 -IVF x 2 boluses given in ED -> Hold for now given known low EF -IV norepi gtt. for MAP < 65 -05/06: midodrine 5mg x 1 dose -IV abx. as below -Hold entresto, spironolactone, carvedilol -Cortisol level - per lab -> able to sent from admitting blood work (prior to hydrocortisone dosing -> awaiting send out results -Echo: EF 20-25%, severe LV dysfunction, LV moderately dilated, akinetic mid to distal anteroseptum, mid to distal anterior wall, apex and distal inferior wall. Mild TR, RVSP is 35 mmHg. -Awaiting echo reports from [facility] for comparison Consult PCCM: defer mgt. -Plan apprec. 3. Acute hypotension (I95.9: Hypotension, unspecified) Initially thought related anti-hypertensive meds c/w dehydration from poor po intake, pt. was given 2L IVF and unable to maintain MAP 65 or > -Hx. of low normotensive sbp low 100 range and dbp 40 -50 range -See above 4. PNA (pneumonia) (J18.9: Pneumonia, unspecified organism) Stelara can cause cryptogenic organizing pneumonia vs. eosinophilic pneumonitis however eosinophil level is 0 -MRSA swab: neg -Med nebs, flutter device, mucinex, supplemental 02 -Chest physiotherapy if warranted -Sputum cx. - pending -Bl. cx. - pending -Legionella antigen - pending -Recommend repeat CXR in 4 weeks as outpatient Consult PCCM: -05/07: transition IV azithro/ceftr to IV vanco/zosyn given recurrent hypotension 5. Pleural effusion on right (J90: Pleural effusion, not elsewhere classified) Per CTA -Caution w/ IVF 6. Acute sinusitis (J01.90: Acute sinusitis, unspecified) CT head: Right maxillary sinusitis, remote right frontal lobe infarct, mild cerebral atrophy with ventricular enlargement, mild ex-vacuo dilation anterior horn right lateral ventricle. -IV abx as above 7. Anemia (D64.9: Anemia, unspecified) Baseline hgb. level - 13 -No acute bleeding noted, hemodynamically stable -Hepatic panel - elevated AST -Anemia panel -> ferrous sulfate BID w/ daily miralax -Trend labs + Hemoccult stool -Consult GI: pending 8. Urinary retention with incomplete bladder emptying (R33.9: Retention of urine, unspecified) W/ known hx. of BPH not on med tx. -Bladder scan > 600ml, PVR > 400ml in spite of void -Gill -Hold tamsulosin dosing 2/2 hypotension -Voiding trials when approp. 9. Acute kidney injury (N17.9: Acute kidney failure, unspecified) 2/2 dehydration, infectious process -Baseline Cr 1.0 -Hold spironolactone resume as soon as possible given known HF -UA - no infectious process -Trend BMP -Avoid nephrotoxic medications as much as possible Consult nephrology: If Cr worsens 10. 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 follows cardio at [facility], s/p ADARSH -Asa, atorvastatin, -Hold carvedilol, entresto, spironolactone 11. Chronic systolic heart failure (I50.22: Chronic systolic (congestive) heart failure) w/ AICD in situ + BNP 93 - caution w/ IVF as above -Cardiac meds as above 12. Paroxysmal A-fib (I48.0: Paroxysmal atrial fibrillation) -Hold carvedilol, -Warfarin 13. HTN (hypertension) (I10: Essential (primary) hypertension) -Cardiac meds as above 14. HLD (hyperlipidemia) (E78.5: Hyperlipidemia, unspecified) -Atorvastatin 15. Pancreatic insufficiency (K86.89: Other specified diseases of pancreas) -Creon - pt. may take from home supply 16. UC (ulcerative colitis) (K51.90: Ulcerative colitis, unspecified, without complications) -CT A/P: Hepatic steatosis, sigmoid diverticulosis -Pt. reports scant amt. of blood in his brief, he is unsure if it was from his penis or rectum - see above -IV sterlara on 05/03 at infusion clinic 17. BPH (benign prostatic hyperplasia) (N40.0: Benign prostatic hyperplasia without lower urinary tract symptoms) -See above 18. History of CVA with residual deficit (I69.30: Unspecified sequelae of cerebral infarction) Chronic residual L hemiplegia -Asa, atorvastatin, 19. On deep vein thrombosis (DVT) prophylaxis (Z79.899: Other long distance operator (current) drug therapy) -Warfarin, early ambulation Orders: ferrous sulfate, 325 mg = 1 tab(s), Tab, Oral, BIDWM, Routine, Start date 05/06/24 17:00:00 EST, 05/06/24 16:01:00 EST hydrocortisone, 50 mg = 1 mL, Injection, IV Push, q6hr, Routine, Start date 05/06/24 22:00:00 EST hydrocortisone, 100 mg = 2 mL, Injection, IV Push, Once, Stop date 05/06/24 16:00:00 EST, Routine, Start date 05/06/24 16:00:00 EST, 05/06/24 15:50:00 EST piperacillin-tazobactam + Sodium Chloride 0.9% intravenous solution 100 mL, 4.5 gm = 1 EA, IV Piggyback, q6hrFT, Routine, Start date 05/07/24 18:00:00 EST, 200 mL/hr, Infuse over 30 minute(s) polyethylene glycol 3350, 17 gram = 1 EA, Powder-Recon, Oral, Daily, Routine, Start date 05/07/24 9:00:00 EST, 05/06/24 16:01:00 EST vancomycin, PHARMACY TO DOSE, Injection, IV, As Directed, Routine, Start date 05/07/24 14:23:00 EST vancomycin + Sodium Chloride 0.9% intravenous solution 250 mL, Reason for Vancomycin: Other reason documented in physician not, 1,000 mg = 1 EA, Injection, IV Piggyback, q24hr, Start date 05/07/24 16:00:00 EST, Infuse over 1 hour(s) warfarin, 8 mg = 2 tab(s), Tab, Oral, Once, Stop date 05/06/24 18:00:00 EST, Start date 05/06/24 18:00:00 EST Add on Test Ambulate with Assistance Basic Metabolic Panel CBC w/ Auto Diff Communication Order Pharmacy to Nursing Communication Order Physician to Nursing Communication Order Physician to Nursing Communication Order Physician to Nursing Consult to Gastroenterology Cortisol COVID-19 ([facility]) Echo Transthoracic Complete eGFR Ferritin Flutter Valve Folate Level MRSA Screen Occupational Therapy Additional Tx Occupational Therapy Evaluate Patient, Develop a Plan of Care and Implement Plan Physical Therapy Additional Tx Physical Therapy Evaluate Patient, Develop a Plan of Care and Implement Plan PT PT & PTT Rapid COVID Antigen ([facility]) Respiratory Panel by PCR Stool Occult Blood Urinary Catheter Care Urinary Catheter Insertion Urinary Catheter to Down Drain Vancomycin Level Peak Vancomycin Level Trough Vitamin B12 Level -Plan discussed w/ patient, nursing staff and CRM. 67 Minutes of critical care time performed. -The following was considered in the determination of critical care time but not limited to the level of medical decision-making, intensive cardiac and/or resp. frequent v.s. monitoring, evaluation of laboratory & radiographic studies, oxygen monitoring and constant monitoring/evaluation. This patient has a high probability of sudden, clinically significant deterioration, which requires the highest level of ACNP preparedness to intervene urgently. I managed/supervised life or organ supporting interventions that required frequent physical assessment. The time I spent with family or surrogate(s) is included only if the patient was incapable of providing the necessary information or participating in medical decision making. Critical care dx./documentation: 1-9. This report was transcribed using voice recognition software. Every effort was made to ensure accuracy, however, inadvertently computerized news library director mistakes may be present. Extracted from: Title:PCCM Consult Note Author:Kevon Duron PA-C, Andressa Cardona Date:05/07/24 1. Acute hypoxic respiratory failure (J96.01: Acute respiratory failure with hypoxia) Suspect 2/2 PNA vs possible drug reaction Former smoker Plan: - Currently on 2L NC - Titrate O2 for sats 92-96% - Continue bronchodilators - CTA chest revealed b/l GGO concerning for viral PNA vs inflammatory process. COVID and RVP are negative. Procal is negative. No leukocytosis. Pt recently received a Stelara injection for his UC. Unclear if this is contributing to his CT findings and respiratory failure. - Will treat his pulmonary infiltrates with empiric abx for now - CRP is 12 --> will continue steroids - Encourage IS and OOB VTE ppx: Coumadin GI ppx: PPI 2. Shock (R57.9: Shock, unspecified) Suspect distributive shock 2/2 adrenal insufficiency vs possible sepsis Plan: - Sepsis protocol - Sepsis bolus given in the ED - Blood cx's, sputum cx, and MRSA swab pending - Pt was recently on a month long prednisone course of 60mg daily which was abruptly stopped a few days ago. Primary team started SDS which improved his BP. Cortisol level was not able to be sent prior to initiation of steroids. - Levophed weaned off 9. Acute kidney injury (N17.9: Acute kidney failure, unspecified) 2/2 shock Plan: - Strict I/O's - Avoid nephrotoxic agents - Serial labs - Replace lytes 12. Paroxysmal A-fib (I48.0: Paroxysmal atrial fibrillation) Plan: - Continue coumadin per pharmacy - Hold home coreg Orders: Add on Test C-Reactive Protein This patient has a high probability of sudden, clinically significant deterioration, which requires the highest level of LIP preparedness to intervene urgently. I managed/supervised life or organ supporting interventions that required frequent LIP assessment. I devoted my full attention to the direct care of this patient for the amount of time indicated below. Time I spent with family or surrogate(s) is included only if the patient was incapable of providing the necessary information or participating in medical decision making. Critical care documentation: The patient has the following organ/system impairments: Acute hypoxemic respiratory failure, Shock, JOSELITO Time spent providing critical services: 32 minutes. Time devoted to teaching and to any procedures I billed separately is not included. Addendum by Maya STEWART, Neela Cardona on May 07, 2024 23:46:54 EST I have seen and evaluated the patient with the physician accounting administrative assistant. His history, physical exam, assessment and plan were done in collaboration. I performed an independent physical examination. I agree with all the above. Acute hypoxic respiratory failure: Likely secondary to pneumonia. CT of the chest was reviewed with bilateral GGO. Procal i s negative. Viral panel is negative. Has been on steroids for a few weeks and is immunocompromised. Need to R/O opportunistic infections if not better with current ABx coverage. Critical care time was 32 minutes. Neela Trejo MD Extracted from: Title:ED Note Author:Gabrielle Casas, Rima Hein te:05/06/24 1. Acute hypoxic respiratory failure (J96.01: Acute respiratory failure with hypoxia) 2. Hypotension due to hypovolemia (E86.1: Hypovolemia) 3. PNA (pneumonia) (J18.9: Pneumonia, unspecified organism) 4. Pleural effusion on right (J90: Pleural effusion, not elsewhere classified) 5. Acute sinusitis (J01.90: Acute sinusitis, unspecified) 6. Anemia (D64.9: Anemia, unspecified) 7. Acute kidney injury (N17.9: Acute kidney failure, unspecified) 8. 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 Chronic systolic heart failure (I50.22: Chronic systolic (congestive) heart failure) 10. Paroxysmal A-fib (I48.0: Paroxysmal atrial fibrillation) 11. HTN (hypertension) (I10: Essential (primary) hypertension) 12. HLD (hyperlipidemia) (E78.5: Hyperlipidemia, unspecified) 13. Pancreatic insufficiency (K86.89: Other specified diseases of pancreas) 14. UC (ulcerative colitis) (K51.90: Ulcerative colitis, unspecified, without complications) 15. BPH (benign prostatic hyperplasia) (N40.0: Benign prostatic hyperplasia without lower urinary tract symptoms) 16. History of CVA with residual deficit (I69.30: Unspecified sequelae of cerebral infarction) 17. On deep vein thrombosis (DVT) prophylaxis (Z79.899: Other long distance operator (current) drug therapy) Orders: azithromycin + Sodium Chloride 0.9% intravenous solution 250 mL, 500 mg = 1 EA, IV Piggyback, Daily for 1 dose(s), Stop date 05/08/24 8:59:00 EST, STAT, Start date 05/06/24 13:43:00 EST, 250 mL/hr, Infuse over 60 minute(s) ceftriaxone + Sodium Chloride 0.9% intravenous solution 50 mL, 1,000 mg = 1 EA, IV Piggyback, Once, Stop date 05/06/24 13:42:00 EST, STAT, Start date 05/06/24 13:42:00 EST, 100 mL/hr, Infuse over 30 minute(s), 05/06/24 13:42:00 EST Sodium Chloride 0.9% intravenous solution, 1,000 mL, IV, Stop date 05/06/24 13:38:00 EST, Start date 05/06/24 13:38:00 EST Sodium Chloride 0.9% intravenous solution, 1,000 mL, Soln-IV, IV, Once, Stop date 05/06/24 11:48:00 EST, STAT, Start date 05/06/24 11:48:00 EST, Infuse over 61, minute(s) B-Type Natriuretic Peptide Basic Metabolic Panel Blood Culture Charcoal Blood Culture Charcoal CBC w/ Auto Diff CT Abdomen/Pelvis w/ Contrast CT Head or Brain w/o Contrast CTA Chest ED Physician consult Hospitalist for continued care eGFR Extra SST Tube Hepatic Function Panel Lactic Acid Lipase Level Procalcitonin PT & PTT Saline Lock Insert Troponin 0 Hr. Troponin 1 Hr. TSH With T4fr Reflex UA with Cult Rflx XR Chest Single View Extracted from: Title:Admission H & P Author:Lola METZGER enee Date:05/06/24 1. Acute hypoxic respiratory failure (J96.01: Acute respiratory failure with hypoxia) 2/2 PNA -Denies home 02, Cpap, Biapap use -> currently requiring 3Lpm NC to maintain pulse ox 92% or > -Initial ABG: pH 7.49, PaCO2 32.9, PaO2 41.6, HCO3 25.9 on room air + SOB/BRITTON, + conversational dyspnea - CTA chest: No PE, b/l peripheral ground glass opacities, greater on right, findings may be seen in patients with COVID-19 pneumonia, however other infectious inflammatory etiologies provide similar radiographic appearance, small right pleural effusions, 1 cm right pericardial lymph node enlargement. -COVID Ag - neg, PCR - pending, -PCT, Flu A&B, RVP - pending -Supplemental O2 -Desat study prior to d/c -See below Consult PCCM - pending 2. Hypotension due to hypovolemia (E86.1: Hypovolemia) Hx. of low normotensive sbp low 100 range and dbp 40 -50 range -Caution w/ IVF given known HF/pleural effusions -Hold entresto, spironolactone, carvedilol -1L IV bolus given in ED -1L additional IVF at 75ml/hr w/ caution given known HR and pleural effusions -Pt. filled pred 20mg TID on 04/03 x 100 tabs - pt. stopped taking on 04/29 prior to Sterlara on 05/03 -> concern for adrenal insuff. 2/2 abrupt discont. of pred after approx. 1 month of dosing -> IV hydrocortisone 100mg x 1, followed by 50mg q6 -Cortisol level - pending -Call parameters for MAP < 65 Consult PCCM: pending 3. PNA (pneumonia) (J18.9: Pneumonia, unspecified organism) -MRSA swab: pending -IV azithro/ceftriaxone - 05/06 -Med nebs, flutter device, mucinex, supplemental 02 -Chest physiotherapy if warranted -Sputum cx. - pending -Bl. cx. - pending -Legionella antigen - pending -Recommend repeat CXR in 4 weeks as outpatient 4. Pleural effusion on right (J90: Pleural effusion, not elsewhere classified) Per CTA -Caution w/ IVF 5. Acute sinusitis (J01.90: Acute sinusitis, unspecified) CT head: Right maxillary sinusitis, remote right frontal lobe infarct, mild cerebral atrophy with ventricular enlargement, mild ex-vacuo dilation anterior horn right lateral ventricle. -IV abx as above 6. Anemia (D64.9: Anemia, unspecified) Baseline hgb. level - 13 -No acute bleeding noted, hemodynamically stable -Hemoccult stool - pending -Hepatic panel - elevated AST -Anemia panel -> ferrous sulfate BID w/ daily miralax -Trend labs -Outpt. f/u w/ GI for possible scopes - defer to PCP 7. Acute kidney injury (N17.9: Acute kidney failure, unspecified) 2/2 dehydration, infectious process -Baseline Cr 1.0 -Hold spironolactone resume as soon as possible given known HF -UA - pending -Trend BMP -Avoid nephrotoxic medications as much as possible Consult nephrology: If Cr worsens 8. 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 follows cardio at [facility] -Asa, atorvastatin, -Hold carvedilol, entresto, spironolactone 9. Chronic systolic heart failure (I50.22: Chronic systolic (congestive) heart failure) w/ AICD in situ + BNP 93 - caution w/ IVF as above -Echo: pending -Cardiac meds as above 10. Paroxysmal A-fib (I48.0: Paroxysmal atrial fibrillation) -Hold carvedilol, -Warfarin 11. HTN (hypertension) (I10: Essential (primary) hypertension) -Cardiac meds as above 12. HLD (hyperlipidemia) (E78.5: Hyperlipidemia, unspecified) -Atorvastatin 13. Pancreatic insufficiency (K86.89: Other specified diseases of pancreas) -Creon - pt. may take from home supply 14. UC (ulcerative colitis) (K51.90: Ulcerative colitis, unspecified, without complications) -CT A/P: Hepatic steatosis, sigmoid diverticulosis -Pt. reports scant amt. of blood in his brief, he is unsure if it was from his penis or rectum -IV sterlara on 05/03 at infusion clinic -UA - pending -Hemoccult stool - pending 15. BPH (benign prostatic hyperplasia) (N40.0: Benign prostatic hyperplasia without lower urinary tract symptoms) -Not on med regimen 16. History of CVA with residual deficit (I69.30: Unspecified sequelae of cerebral infarction) Chronic residual L hemiplegia -Asa, atorvastatin, 17. On deep vein thrombosis (DVT) prophylaxis (Z79.899: Other mcfp (current) drug therapy) -Warfarin, early ambulation Orders: acetaminophen, 650 mg = 2 tab(s), Tab, Oral, q6hr PRN Pain, Routine, Start date 05/06/24 14:34:00 EST, 05/06/24 14:34:00 EST azithromycin + Sodium Chloride 0.9% intravenous solution 250 mL, 500 mg = 1 EA, Injection, IV Piggyback, Daily, Routine, Start date 05/07/24 12:00:00 EST, 250 mL/hr, Infuse over 60 minute(s) ceftriaxone + Sodium Chloride 0.9% intravenous solution 50 mL, 1,000 mg = 1 EA, Injection, IV Piggyback, Daily, Routine, Start date 05/07/24 9:00:00 EST, 100 mL/hr, Infuse over 30 minute(s) guaifenesin, 1,200 mg = 2 tab(s), Tab-ER, Oral, BID, Routine, Start date 05/06/24 21:00:00 EST, 05/06/24 14:34:00 EST ipratropium, 2.5 mL, Soln-Inh, NEB, QID, Routine, Start date 05/06/24 16:00:00 EST levalbuterol, 0.63 mg = 3 mL, Soln-Inh, Inhalation, QID, Routine, Start date 05/06/24 16:00:00 EST, 05/06/24 14:34:00 EST ondansetron, 4 mg = 2 mL, Injection, IV Push, q6hr PRN Nausea, Routine, Start date 05/06/24 14:34:00 EST, 05/06/24 14:34:00 EST Patient Specific Meds, Creon, Normal Patient Dose, Each, Oral, As Directed, Routine, Start date 05/06/24 14:48:00 EST warfarin, Pharmacy to dose, Tab, Oral, As Directed for 100 day(s), Stop date 08/14/24 15:46:00 EDT, Routine, Start date 05/06/24 14:47:00 EST Ambulate with Assistance Basic Metabolic Panel Below the Knee Intermittent Pneumatic Compression Device Cardiac Diet Cardiac Monitoring CBC w/ Auto Diff Communication Order Communication Order Communication Order Physician to Nursing Consult to Pulmonology Echo Transthoracic Complete Evaluate Need For Continued Telemetry Ferritin Flutter Valve Folate Level Intake and Output Iron Level Lactate Dehydrogenase Legionella Antigen Urine MRSA Screen Notify Provider Vital Signs Notify Provider Vital Signs Occupational Therapy Evaluate Patient, Develop a Plan of Care and Implement Plan Oxygen Protocol Physical Therapy Evaluate Patient, Develop a Plan of Care and Implement Plan Pneumonia Quality Measures Precautions Pulse Oximetry Rapid COVID Antigen ([facility]) Respiratory Panel by PCR Resuscitation Status - Full Reticulocyte Count Sputum Culture Sputum Culture Stool Occult Blood TIBC Calculated Vital Signs Vital Signs Vitamin B12 Level Weight -Plan discussed w/ patient, nursing staff and CRM. -Disposition: Patient will likely be > 2 midnight stays for treatment of above. 49 Minutes of critical care time performed. -The following was considered in the determination of critical care time but not limited to the level of medical decision-making, intensive cardiac and/or resp. frequent v.s. monitoring, evaluation of laboratory & radiographic studies, oxygen monitoring and constant monitoring/evaluation. This patient has a high probability of sudden, clinically significant deterioration, which requires the highest level of ACNP preparedness to intervene urgently. I managed/supervised life or organ supporting interventions that required frequent physical assessment. The time I spent with family or surrogate(s) is included only if the patient was incapable of providing the necessary information or participating in medical decision making. Critical care dx./documentation: #1 - 7. This report was transcribed using voice recognition software. Every effort was made to ensure accuracy, however, inadvertently computerized news library director mistakes may be present. Future Appointments Appointment Date:05/24/2024 03:00:00 PM Scheduled Provider:Pete Gar MD Location:[facility] Appointment Type: Hospital Follow Up w/TCM Appointment Date:07/05/2024 09:15:00 AM Scheduled Provider:Eloisa Hassan MD Location:[facility] Appointment Type:BAD[facility] Follow Up Appointment Date:08/30/2024 10:00:00 AM Scheduled Provider:Pete Gar MD Location:[facility] Appointment Type: Open Appointment Date:11/21/2024 11:00:00 AM Scheduled Provider: Location:[facility] Appointment Type:FM Medicare Wellness Subsequent Diagnostic Tests Pending * Acid Fast Smear+Culture 05/11/24 * Acid Fast Smear+Culture 05/11/24 Future Scheduled Tests Radiology* XR Chest 2 Views 06/11/24 [facility] [id number] NoteGetWell Learning Participants Patient Elizabeth Understands Education Yes Elizabeth Education Video Avoiding Infections in the [facility]01-27-2025 Note Progress Note - Pharmacy Pharmacy to Dose Warfarin Indication for warfarin therapy: a fib Target INR: 2.0-3.0 Hospitalist: Elizabeth On warfarin prior to admission? Yes Home regimen: Tuesday: 8 mg Tuesday: 4 mg Tuesday: 8 mg Tuesday: 4 mg : 8 mg Tuesday: 4 mg Tuesday: 8 mg Weekly dose: 44 mg INR values/Dose given: 05/06/24: INR 2.07 - 8 mg 05/07/24: INR 3.26 - dose held 05/08/24: INR 5.94 - held 05/09/24: INR 6.51 - held (10mg Vit K) 05/10/24: INR 1.22 - held 05/11/24: INR 1.19 - 5mg 05/12/24: INR 1.11 - 10mg 05/13/24: INR 1.49 - 5mg 05/14/24: INR 1.95 - 4mg Scheduled dose for today: 4 mg Other Comments: 05/14: INR is slightly subtherapeutic with significant increase from yesterday, will give home dose tonight 05/13: INR increased although remains sub therapeutic will give 5mg today, ABX are completed 05/12: INR remains sub therapeutic, will give 10mg today, 05/11: INR subtherapeutic, bridging with therapeutic lovenox, will give 5mg tonight, pt on zosyn 05/10: INR subtherapeutic today. Patient was given 10mg Vitamin K 05/09 - scheduled for bronchoscopy 05/11, and then we can restart warfarin in the evening 05/11. 05/09: INR supratherapeutic again today, H&H decreased, checked with ICU nurse to confirm patient was not bleeding anywhere she could visibly see, did not see any bleed. Will continue to hold, andfollow. 05/08: INR supratherapeutic again today, trending labs, will continue to follow 05/07: large increase in INR overnight. will hold dose today 05/06: patient has not had dose today. INR on low end of therapeutic. will give home dose. [facility] NoteMicrobiology PROCEDURE: Blood Culture Charcoal [R1] SOURCE: Blood BODY SITE: Hand R COLLECTED DATE/TIME: 05/06/2024 11:01 EST RECEIVED DATE/TIME: 05/06/2024 12:01 EST START DATE/TIME: 05/06/2024 12:01 EST FREE TEXT SOURCE: IV start Gabrielle Casas, Rima Anthony M.D., Rima H FINAL REPORTS Final Report [] Verified Date/Time: 05/13/2024 15:00 EST No growth at 7 days. Performing Locations R1: This test was performed at: [facility], [address] [place] [address], [id number] [place] [address], QhzuxdC[facility] Clinic Mercy HospitalComment on above:Performed By: #### [id number] #### [facility] [address] [place] [address] [id number] NoteMicrobiology PROCEDURE: Blood Culture Charcoal [R1] SOURCE: Blood BODY SITE: Arm L COLLECTED DATE/TIME: 05/06/2024 12:22 EST RECEIVED DATE/TIME: 05/06/2024 13:08 EST START DATE/TIME: 05/06/2024 13:08 EST FREE TEXT SOURCE: left forearm Gabrielle Casas, Rima Anthony M.D., Rima Mahoney FINAL REPORTS Final Report [] Verified Date/Time: 05/13/2024 15:00 EST No growth at 7 days. Performing Locations R1: This test was performed at: [facility], [address] [place] [address], [id number] [place] [address], HvlilhC[facility] Clinic Mercy HospitalComment on above:Performed By: #### [id number] #### [facility] [address] [id number] NoteProgress Note-Physician Assessment/Plan PLAN: 1. 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 possible drug rxn to [facility], arabella -Denies home 02, cpap, bipap -Currently requires 2Lpm NC to maintain pulse ox 92% of > per nursing pt. dropped < 88% during early a.m. and was placed back on NC on 05/10 -CTA chest: + b/l GGO concerning for viral PNA vs. inflamm. process -COVID Ag/PCR, PCT, Flu A/B, RVP - neg -> unclear causation of CTA findings -Supplemental 02 Consult PCCM: -s/p Bronch - 05/11 w/ cultures pending. -Cont. empiric abx. as below -05/10: transferred out of ICU Desat study performed 05/12 which showed no dropin SPO2 remains around 90%. HR did increase to 132 w/little exertion. 2. Shock (R57.9: Shock, unspecified) Suspect distributive shock 2/2 drug interaction (Sterlara) vs. adrenal insuff vs. possible sepsis -Pt. had abruptly stopped pred 60mg daily dosing after 30 days of tx. -> concern for adrenal insuff -> SDS initiated: IV hydrocortisone 100mg x 1 followed by 50mg q6hr -> however cortisol level was 24.1 -> unlikely cause -> DC'd -IVF 2L to date - off at present -05/06: Midodrine 5mg x 1 -IV levophed gtt. - off 05/10 -IV vanco/zosyn - rx. to dose -Resolved at present 3. Acute hypotension (I95.9: Hypotension, unspecified) Initially thought related anti-hypertensive meds c/w dehydration from poor po intake, pt. was [id number] IVF and unable to maintain MAP 65 or > -Hx. of low normotensive sbp low 100 range and dbp 40 -50 range Echo: EF 20-25%, severe LV dysfunction, LV mod. dilated, akinetic mid to distal anteroseptum, mid to distal ant. wall, apex and distal inf. wall. Mild TR, RVSP is 35mmHg, -Tx. as above Consult PCCM:-See note BP now seems stable. 4. PNA (pneumonia) (J18.9: Pneumonia, unspecified organism) Stelara can cause cryptogenic organizing pneumonia vs. eosinophilic pneumonitis however eosinophil level is 0 -MRSA swab: neg -Med nebs, flutter device, mucinex, supplemental 02 -Chest physiotherapy if warranted -Sputum cx. - pending -Bl. cx. - NGTD -Legionella antigen - pending -Recommend repeat CXR in 4 weeks as outpatient Consult PCCM: -05/07: transition IV azithro/ceftr to IV vanco/zosyn given recurrent hypotension 5. Pleural effusion on right (J90: Pleural effusion, not elsewhere classified) Per CTA -Caution w/ IVF 6. Acute sinusitis (J01.90: Acute sinusitis, unspecified) CT head: Right maxillary sinusitis, remote right frontal lobe infarct, mild cerebral atrophy with ventricular enlargement, mild ex-vacuo dilation anterior horn right lateral ventricle. -IV abx as above 7. Anemia (D64.9: Anemia, unspecified) Hx. of UC/PBC, c/w asa/warfarin now w/ supra-therapeutic INR -Baseline hgb. level - -03/2024: EGD: consistent w/ erosive gastropathy -03/2024: Cscope: Colitis changes in L colon compatible w/ prev. hx. of UC,, active L sided colitis -Anemia panel -> ferrous sulfate BID w/ daily miralax -Trend labs Consult GI: + occult stool likely 2/2 UC; -Supportive care; F/U in GI clinic 8. Urinary retention with incomplete bladder emptying (R33.9: Retention of urine, unspecified) W/ known hx. of BPH not on med tx. -Bladder scan > 600ml, PVR > 400ml in spite of void -Gill -Hold tamsulosin dosing 2/2 hypotension -Voiding trials 9. Acute kidney injury (N17.9: Acute kidney failure, unspecified) W/ known hx. of BPH not on med tx. -Bladder scan > 600ml, PVR > 400ml in spite of void -Gill -Hold tamsulosin dosing 2/2 hypotension -Voiding trials when approp. 10. Diarrhea (R19.7: Diarrhea, unspecified) 05/10: 3 stools overnight -Enteric panel, Cdiff - neg -Imodium if needed 11. Hypokalemia (E87.6: Hypokalemia) Replete K/Mag prn -Trend labs 12. 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 follows cardio at [facility], s/p ADARSH -Asa, atorvastatin, -Hold carvedilol, entresto, spironolactone 13. Chronic systolic heart failure (I50.22: Chronic systolic (congestive) heart failure) Pt. follows cardio at [facility], s/p ADARSH -Asa, atorvastatin, -Hold carvedilol, entresto, spironolactone 14. Paroxysmal A-fib (I48.0: Paroxysmal atrial fibrillation) -Hold carvedilol, -Warfarin 15. Supratherapeutic INR (R79.1: Abnormal coagulation profile) -05/09; Vt. K 10mg per PCCM -05/10: sub-therapeutic -> 1 dose of therapeutic lovenox, no HS dose 2/2 pending bronch in a.m. per PCCM -05/11: Will need therapeutic dosing post bronch until INR is therapeutic if PCCM is agreeable -Warfarin - rx. to dose -Trend labs 05/12 INR has been subtherapeutic since Vit K. Continue Lovenox bridge INR today 1.49 16. HTN (hypertension) (I10: Essential (primary) hypertension) -Cardiac meds as above 17. HLD (hyperlipidemia) (E78.5: Hyperlipidemia, unspecified) -Atorvastatin 18. Pancreatic in (more content not included)...[facility] Comment on above:Result Comment: Electronically Signed By: Azucena CROWLEY\.br\Date and Time Signed: 05/13/24 13:37 EST\.br\Electronically Co- Signed By: Leodan Pandya DO.br\Date and Time Co-Signed:05/13/24 13:45 [id number] NoteMicrobiology PROCEDURE: Bronchial Culture [R1] SOURCE: Bronch Wash BODY SITE: COLLECTED DATE/TIME: 05/11/2024 13:31 EST RECEIVED DATE/TIME: 05/11/2024 15:49 EST START DATE/TIME: 05/11/2024 15:50 EST FREE TEXT SOURCE: General lung washing Angelo STEWART, Pooja Stephens MD, Pooja Belcher FINAL REPORTS Final Report [] Verified Date/Time: 05/13/2024 07:52 EST Scant growth of Normal upper respiratory wandy isolated STAINS Gram Stain Report [] Verified Date/Time: 05/12/2024 08:13 EST Rare epithelial cells No WBC's seen. No organisms seen. Performing Locations R1: This test was performed at: [facility], [address] [place] [address], [id number] [place] [address], JrdrhzCleveland Clinic Mercy HospitalComment on above:Performed By: #### [id number] #### [address] [id number] NoteMicrobiology PROCEDURE: Bronchial Culture [R1] SOURCE: Bronch Wash BODY SITE: COLLECTED DATE/TIME: 05/11/2024 13:31 EST RECEIVED DATE/TIME: 05/11/2024 15:49 EST START DATE/TIME: 05/11/2024 15:50 EST FREE TEXT SOURCE: General lung washing Angelo STEWART, Pooja Stehpens MD, Pooja Belcher FINAL REPORTS Final Report [] Verified Date/Time: 05/13/2024 07:52 EST Scant growth of Normal upper respiratory wandy isolated STAINS Gram Stain Report [] Verified Date/Time: 05/12/2024 08:13 EST Rare epithelial cells No WBC's seen. No organisms seen. Performing Locations R1: This [facility] performed at[facility], [address] [place] [address], [id number] [place] [address], RjywctCleveland Clinic Mercy HospitalComment on above:Performed By: #### [id number] #### [facility] [address] [place] [address] [id number] NoteMicrobiology PROCEDURE: Bronchial Culture [R1] SOURCE: Bronch Wash BODY SITE: COLLECTED DATE/TIME: 05/11/2024 13:32 EST RECEIVED DATE/TIME: 05/11/2024 15:38 EST START DATE/TIME: 05/11/2024 15:38 EST FREE TEXT SOURCE: Left lower lobe SABINO Stephens MD, Pooja Stephens MD, Pooja Belcher FINAL REPORTS Final Report [] Verified Date/Time: 05/13/2024 07:51 EST No growth at 2 days. STAINS Gram Stain Report [] Verified Date/Time: 05/12/2024 08:17 EST Occasional White Blood Cells Rare epithelial cells No organisms seen. Performing Locations R1: This test was performed at: [facility], [address] [place] [address], [id number] [place] [address], SpujfdCleveland Clinic Mercy HospitalComment on above:Performed By: #### [id number] #### [address] [phone] NoteMicrobiology PROCEDURE: Bronchial Culture [R1] SOURCE: Bronch Wash BODY SITE: COLLECTED DATE/TIME: 05/11/2024 13:32 EST RECEIVED DATE/TIME: 05/11/2024 15:38 EST START DATE/TIME: 05/11/2024 15:38 EST FREE TEXT SOURCE: Left lower lobe SABINO Stephens MD, Pooja Stephens MD, Pooja Belcher FINAL REPORTS Final Report [] Verified Date/Time: 05/13/2024 07:51 EST No growth at 2 days. STAINS Gram Stain Report [] Verified Date/Time: 05/12/2024 08:17 EST Occasional White Blood Cells Rare epithelial cells No organisms seen. Performing Locations R1: This test was performed at: [facility], [address] [place] [address], [id number] , , ReljymCleveland Clinic Mercy HospitalComment on above:Performed By: #### [id number] #### [facility] [address] [place] [address] [phone] NoteProgress Note - Pharmacy Pharmacy to Dose Warfarin Indication for warfarin therapy: a fib Target INR: 2.0-3.0 Hospitalist: Elizabeth On warfarin prior to admission? Yes Home regimen: Tuesday: 8 mg Tuesday: 4 mg Tuesday: 8 mg Tuesday: 4 mg : 8 mg Tuesday: 4 mg Tuesday: 8 mg Weekly dose: 44 mg INR values/Dose given: 05/06/24: INR 2.07 - 8 mg 05/07/24: INR 3.26 - dose held 05/08/24: INR 5.94 - held 05/09/24: INR 6.51 - held (10mg Vit K) 05/10/24: INR 1.22 - held 05/11/24: INR 1.19 - 5mg 05/12/24: INR 1.11 - 10mg 05/13/24: INR 1.49 - 5mg Scheduled dose for today: 5 mg Other Comments: 05/13: INR increased although remains sub therapeutic will give 5mg today, ABX are completed 05/12: INR remains sub therapeutic, will give 10mg today, 05/11: INR subtherapeutic, bridging with therapeutic lovenox, will give 5mg tonight, pt on zosyn 05/10: INR subtherapeutic today. Patient was given 10mg Vitamin K 05/09 - scheduled for bronchoscopy 05/11, and then we can restart warfarin in the evening 05/11. 05/09: INR supratherapeutic again today, H&H decreased, checked with ICU nurse to confirm patient was not bleeding anywhere she could visibly see, did not see any bleed. Will continue to hold, andfollow. 05/08: INR supratherapeutic again today, trending labs, will continue to follow 05/07: large increase in INR overnight. will hold dose today 05/06: patient has not had dose today. INR on low end of therapeutic. will give home dose. has been started on zithromax/rocephinFisher [facility] NoteOperative Report Procedure: Bronchoscopy Indications: Pulmonary infiltrates, immunocompromised Providers: Pooja Stephens MD (Doctor) Medicines: Versed and Fentanyl , Local lidocaine Complications: No immediate complications Procedure: Pre-Anesthesia Assessment: - A History and Physical has been performed. Patient meds and allergies have been reviewed. The risks and benefits of the procedure and the sedation options and risks were discussed with the patient. All questions were answered and informed consent was obtained. Patient identification and proposed procedure were verified prior to the procedure by the physician and the nurse in the procedure room. Immediately prior to administration of medications, the patient was re-assessed for adequacy to receive sedatives. The heart rate, respiratory rate, oxygen saturations, blood pressure, adequacy of pulmonary ventilation, and response to care were monitored throughout the procedure. The physical status of the patient was re-assessed after the procedure. Findings: The bronchoscope was advanced through the mouth into the posterior pharynx. The vocal cords were normal. Lidocaine was injected. The bronchoscope was advanced into the trachea. There were notable mucoid secretions in the lower lobes bilaterally. There were diffuse bronchiectatic changes in the airways. There were no endobronchial lesions. The underlying mucosa is mildly friable. Bronchial washingwas performed throughout the airways and sent for cultures and cytology. Bronchoalveolar lavage wasperformed from left lower lobe and total of 80 mL was instilled until the return of 25 mL of cloudyfluid. The BAL was sent for cultures, cytology, pneumocystis PCR Complications none Impression: #1 bilateral pulmonary infiltrates in immunocompromised patient #2 notable mucoid secretions in the airways #3 bronchiectatic changes throughout the airways with mildly friable mucosa #4 bronchial washing was performed #5 bronchoalveolar lavage was performed from left lower lobeCleveland Clinic Mercy HospitalComment on above:Result Comment: Electronically Signed By: Angelo STEWART, Pooja Belcher\.br\Date and Time Signed: 05/11/24 14:18 [id number] NoteProgress Note-Physician Assessment/Plan 1. Acute hypoxic respiratory failure (J96.01: Acute respiratory failure with hypoxia) Suspect 2/2 opportunistic infection vs possible drug reaction Former smoker Plan: - Currently on RA - Titrate O2 for sats 92-96% - Continue bronchodilators - CTA chest revealed b/l GGO concerning for viral PNA vs inflammatory process. COVID and RVP are negative. Procal is negative. No leukocytosis. Pt recently received a Stelara injection for his UC. Unclear if this is contributing to his CT findings and respiratory failure. - Will treat his pulmonary infiltrates with empiric abx for now - CRP is improving - LDH is 452 --> concerning for possible PCP - Discussed the case w/ Dr. Stephens. Will plan for bronch Tuesday. - Encourage IS and OOB VTE ppx: Lovenox GI ppx: PPI Orders: NPO Diet Subjective Pt is a 78y M with past medical history significant for CAD s/p ADARSH, chronic HFrEF s/p AICD, PAF oncoumadin, CVA, pancreatic insufficiency, ulcerative colitis, BPH, and HLD who presented to the ED on 05/06 with complaints of generalized weakness for the past month or two. He denies any recent fevers, productive cough, chest pain, abdominal pain, nausea, vomiting, diarrhea, or BLE edema. In the ED, pt presented tachycardic, hypotensive, and hypoxemic on RA. Laboratory workup revealed INR 2.07, SCr 1.5, bicarb 26, lipase 74, BNP 93, but otherwise unremarkable. Initial ABG showed 7.49/33/42. CTAchest obtained which was neg for PE but did reveal significant b/l GGO (Rt > Lt) and tiny Rt pleural effusion. Pt remained hypotensive in the ED despite fluid resuscitation and was started on levophed. He was also started on empiric abx, SDS, and admitted to the ICU for further management. PCCM consulted to assist in management of the pt's acute hypoxemic respiratory failure and shock. 05/08: Pt required low dose levophed in the afternoon yesterday but was weaned off early this AM. Hehas been stable on 2L NC and could likely be weaned to RA. Pt reports that he is feeling improved. He denies any complaints of SOB, productive cough, chest pain, dizziness, or lightheadedness. I discussed the case w/ Dr. Stephens. We will plan to bronch tomorrow to obtain a BAL for possible PCP. Pt isagreeable. NPO at midnight. 05/09: Pt was on low dose levophed o/, but this was weaned off around 0200 today. He has been on andoff 2L NC. His hgb dropped to 8.8 today but not obvious signs of bleeding. INR is 6.5. Will give 10mg Vitamin K and reschedule the bronchoscopy for Tuesday. Pt states he is feeling well. He denies anynew complaints. 05/10: Pt was placed back on 2L NC o/n but his O2 sats have been high 90s this AM. Pt is OOB to chair currently. He denies any respiratory complaints. Hgb improved to 9.4 today without intervention. INR improved to 1.22 today after the VitK yesterday. Will plan for bronchoscopy tomorrow, NPO at midnight. BP has been stable off levophed. Objective Vitals & Measurements T: 36.5 ???C(Oral) TMIN: 36.5 ???C(Oral) TMAX: 36.9 ???C(Oral) HR: 101(Monitored) RR: 16 BP: 106/60SpO2: 98% WT: 60.7 kg Intake & Output This visit (24 hour periods starting at 07:00 EST) 05/10/24 * 05/09/24 05/08/24 Total Summary Intake mL 13.37 1,420.87 819.42 Output mL 450 1,105 868 Fluid Balance -436.63 315.87 -48.58 Intake (7) Oral Intake mL -- 150 -- Sodium Chloride 0.9% intravenous solution 1,000 mL mL 13.37 329.09 352.77 Sodium Chloride 0.9% intravenous solution 500 mL mL -- 475.78 35.98 Sodium Chloride 0.9%, phytonadione mL -- 66 -- Sodium Chloride 0.9%, piperacillin-tazobactam mL -- 400 400 hydrocortisone mL -- -- 1 norepinephrine 8 mg [0.05 mcg/kg/min] + Dextrose 5% in Water intravenous solution 250 mL mL -- -- 29.67 Total 13.37 1,420.87 819.42 Output (1) Urine Catheter mL 450 1,105 868 Total 450 1,105 868 Counts (1) Stool Count 3 5 5 * This column has not completed the indicated time period. Physical Exam General: No acute distress Skin: Warm, dry Neck: Trachea midline Eye: Sclera anicteric ENMT: Moist mucous membranes Cardiovascular: Regular rate and rhythm. No murmurs, rubs, or gallops. Trace pedal edema. Respiratory: Fine crackles b/l. No wheezing or rhonchi. No stridor. No accessory muscle use. Chest wall: No deformity Gastrointestinal: Soft, non-tender, non-distended Extremities: No deformity Neurological: Awake and alert. Following commands. Lab Results WBC: 5.4 E9/L (05/10/24 05:38:00) RBC: 3 E12/L Low (05/10/24 05:38:00) HGB: 9.4 gm/dL Low (05/10/24 05:38:00) Hct: 27.9 % Low (05/10/24 05:38:00) MCV: 92.4 fL (05/10/24 05:38:00) MCH: 31.2 pg (05/10/24 05:38:00) MCHC: 33.7 gm/dL (05/10/24 05:38:00) RDW: 16 % High (05/10/24 05:38:00) Platelet: 295 E9/L (05/10/24 05:38:00) MPV: 7.8 fL (05/10/24 05:38:00) Neutro Auto: 73.5 % (05/10/24 05:38:00) Lymph Auto: 19.7 % (05/10/24 05:38 (more content not included)...[facility]:Result Comment: Electronically Signed By: Kevon Duron PA-C, Duane Cardona\.br\Date and Time Signed: 05/10/24 12:25 [id number] Note Progress Note-Physician Assessment/Plan 1. 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 possible drug rxn to [facility], consider -Denies home 02, cpap, bipap -Currently requires 2Lpm NC to maintain pulse ox 92% of > per nursing pt. dropped < 88% during early a.m. and was placed back on NC. -CTA chest: + b/l GGO concerning for viral PNA vs. inflamm. process -COVID Ag/PCR, PCT, Flu A/B, RVP - neg -> unclear causation of CTA findings -Supplemental 02 Consult PCCM: -Hold bronch 2/2 elevated INR - plan for 05/11 -Cont. empiric abx. as below -May transfer out of ICU if bed needed. Ordered: Critical Care Ill/Injured Pt Initial 30-74 Min [id number] 2. Shock (R57.9: Shock, unspecified) Suspect distributive shock 2/2 drug interaction (Sterlara) vs. adrenal insuff vs. possible sepsis -Pt. had abruptly stopped pred 60mg daily dosing after 30 days of tx. -> concern for adrenal insuff -> SDS initiated: IV hydrocortisone 100mg x 1 followed by 50mg q6hr -> however cortisol level was 24.1 -> unlikely cause -> DC'd -IVF 2L to date - off at present -05/06: Midodrine 5mg x 1 -IV levophed gtt. - off at present -IV vanco/zosyn - rx. to dose -Resolved at present 3. Acute hypotension (I95.9: Hypotension, unspecified) Initially thought related anti-hypertensive meds c/w dehydration from poor po intake, pt. was fidgy6D IVF and unable to maintain MAP 65 or > -Hx. of low normotensive sbp low 100 range and dbp 40 -50 range Echo: EF 20-25%, severe LV dysfunction, LV mod. dilated, akinetic mid to distal anteroseptum, mid to distal ant. wall, apex and distal inf. wall. Mild TR, RVSP is 35mmHg, -Tx. as above Consult PCCM: -See note 4. PNA (pneumonia) (J18.9: Pneumonia, unspecified organism) Stelara can cause cryptogenic organizing pneumonia vs. eosinophilic pneumonitis however eosinophil level is 0 -MRSA swab: neg -Med nebs, flutter device, mucinex, supplemental 02 -Chest physiotherapy if warranted -Sputum cx. - pending -Bl. cx. - NGTD -Legionella antigen - pending -Recommend repeat CXR in 4 weeks as outpatient Consult PCCM: -05/07: transition IV azithro/ceftr to IV vanco/zosyn given recurrent hypotension 5. Pleural effusion on right (J90: Pleural effusion, not elsewhere classified) Per CTA -Caution w/ IVF 6. Acute sinusitis (J01.90: Acute sinusitis, unspecified) Per CTA -Caution w/ IVF 7. Anemia (D64.9: Anemia, unspecified) Hx. of UC/PBC, c/w asa/warfain now w/ supra-therapeutic INR -Baseline hgb. level - : EGD: Sm. HH, mild Schatzki ring at GI junction, dilation performed, patchy erythema w/ scattered erosions consistent w/ erosive gastropathy s/p bx. -03/2024: Cscope: Colitis changes in L colon compatible w/ prev. hx. of UC, + diverticulosis, lg. internal hemorrhoids, active L sided colitis, diverticulosis. -No acute bleeding noted, hemodynamically stable -Hepatic panel - elevated AST -Anemia panel -> ferrous sulfate BID w/ daily miralax -Trend labs Consult GI: + occult stool likely 2/2 UC -Supportive care -CRP, stool calprotectin -F/U in GI clinic 8. Urinary retention with incomplete bladder emptying (R33.9: Retention of urine, unspecified) W/ known hx. of BPH not on med tx. -Bladder scan > 600ml, PVR > 400ml in spite of void -Gill -Hold tamsulosin dosing 2/2 hypotension -Voiding trials when approp. 9. Acute kidney injury (N17.9: Acute kidney failure, unspecified) W/ known hx. of BPH not on med tx. -Bladder scan > 600ml, PVR > 400ml in spite of void -Gill -Hold tamsulosin dosing 2/2 hypotension -Voiding trials when approp. 10. Diarrhea (R19.7: Diarrhea, unspecified) 3 stools overnight -Enteric panel, Cdiff - pending 11. 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 follows cardio at [facility], s/p ADARSH -Asa, atorvastatin, -Hold carvedilol, entresto, spironolactone 12. Chronic systolic heart failure (I50.22: Chronic systolic (congestive) heart failure) Pt. follows cardio at [facility], s/p ADARSH -Asa, atorvastatin, -Hold carvedilol, entresto, spironolactone 13. Paroxysmal A-fib (I48.0: Paroxysmal atrial fibrillation) -Hold carvedilol, -Warfarin 14. Supratherapeutic INR (R79.1: Abnormal coagulation profile) -05/09; Vt. K 10mg per PCCM -Hold warfarin -Trend labs 15. HTN (hypertension) (I10: Essential (primary) hypertension) -Cardiac meds as above 16. HLD (hyperlipidemia) (E78.5: Hyperlipidemia, unspecified) -Atorvastatin 17. Pancreatic insufficiency (K86.89: Other specified diseases of pancreas) -Creon - pt. may take from home supply 18. UC (ulcerative colitis) (K51.90: Ulcerative colitis, unspecified, without complications) UC per GI note -> in partial remission, + PBC -CT A/P: Hepatic steatosis, sigmoid diverticulosis -Pt. reports sc (more content not included)...[facility] HospitalComment on above:Result Comment: Electronically Signed By: Elizabeth METZGER\.br\Date and Time Signed: 05/10/24 10:54 EST\.br\Electronically Co-Signed By: Leodan Pandya DO\.br\Date and Time Co-Signed: 05/10/24 14:25 EST 05-10-2024 NoteProgress Note - Pharmacy Pharmacy to Dose Warfarin Indication for warfarin therapy: a fib Target INR: 2.0-3.0 Hospitalist: Elizabeth On warfarin prior to admission? Yes Home regimen: Tuesday: 8 mg Tuesday: 4 mg Tuesday: 8 mg Tuesday: 4 mg : 8 mg Tuesday: 4 mg Tuesday: 8 mg Weekly dose: 44 mg INR values/Dose given: 05/06/24: INR 2.07 - 8 mg 05/07/24: INR 3.26 - dose held 05/08/24: INR 5.94 - held 05/09/24: INR 6.51 - held 05/10/24: INR 1.22 - Scheduled dose for today: HOLD DOSE Other Comments: 05/10: INR subtherapeutic today. Patient was given 10mg Vitamin K 05/09 - scheduled for bronchoscopy 05/11, and then we can restart warfarin in the evening 05/11. 05/09: INR supratherapeutic again today, H&H decreased, checked with ICU nurse to confirm patient was not bleeding anywhere she could visibly see, did not see any bleed. Will continue to hold, andfollow. 05/08: INR supratherapeutic again today, trending labs, will continue to follow 05/07: large increase in INR overnight. will hold dose today 05/06: patient has not had dose today. INR on low end of therapeutic. will give home dose. has been started on zithromax/rocephinFisher [facility]10-[facility]24 NoteCritical Care Progress Note Assessment/Plan 1. Acute hypoxic respiratory failure (J96.01: Acute respiratory failure with hypoxia) Suspect 2/2 opportunistic infection vs possible drug reaction Former smoker Plan: - Currently on RA - Titrate O2 for sats 92-96% - Continue bronchodilators - CTA chest revealed b/l GGO concerning for viral PNA vs inflammatory process. COVID and RVP are negative. Procal is negative. No leukocytosis. Pt recently received a Stelara injection for his UC. Unclear if this is contributing to his CT findings and respiratory failure. - Will treat his pulmonary infiltrates with empiric abx for now - CRP is improving - LDH is 452 --> concerning for possible PCP - Discussed the case w/ Dr. Stephens. Will plan for bronch Tuesday if INR is improved. - Encourage IS and OOB VTE ppx: Coumadin GI ppx: PPI 2. Shock (R57.9: Shock, unspecified) Suspect distributive shock 2/2 adrenal insufficiency vs possible sepsis Plan: - Sepsis protocol - Sepsis bolus given in the ED - Blood cx's NGTD - MRSA swab neg --> Vanco d/c'd - Pt was recently on a month long prednisone course of 60mg daily which was abruptly stopped a few days ago. Primary team started SDS which seemed to improve his BP but he required levophed again yesterday evening. Cortisol level added to ED labs and resulted as 24.1, making adrenal insufficiency very unlikely. Will d/c SDS. - Levophed weaned off 7. Anemia (D64.9: Anemia, unspecified) Acute anemia c/b supratherapeutic INR Plan: - Serial H&H - No obvious signs of bleeding - CTM 9. Acute kidney injury (N17.9: Acute kidney failure, unspecified) 2/2 shock Resolved Plan: - Strict I/O's - Avoid nephrotoxic agents - Serial labs - Replace lytes 12. Paroxysmal A-fib (I48.0: Paroxysmal atrial fibrillation) Supratherapeutic INR Plan: - Hold coumadin - Will give 10mg VitK today - Daily INR - Hold home coreg Orders: phytonadione + Sodium Chloride 0.9% intravenous solution 50 mL, 10 mg = 1 mL, Injection, IV Piggyback, Once, Stop date 05/09/24 10:00:00 EST, Routine, Start date 05/09/24 10:00:00 EST, 153 mL/hr, Infuse over 20 minute(s) Cardiac Diet This patient has a high probability of sudden, clinically significant deterioration, which requiresthe highest level of LIP preparedness to intervene urgently. I managed/supervised life or organ supporting interventions that required frequent LIP assessment. I devoted my full attention to the direct care of this patient for the amount of time indicated below. Time I spent with family or surrogate(s) is included only if the patient was incapable of providing the necessary information or participating in medical decision making. Critical care documentation: The patient has the following organ/system impairments: Acute hypoxemic respiratory failure, Shock, JOSELITO Time spent providing critical services: 32 minutes. Time devoted to teaching and to any procedures I billed separately is not included. Subjective Pt is a 78y M with past medical history significant for CAD s/p ADARSH, chronic HFrEF s/p AICD, PAF oncoumadin, CVA, pancreatic insufficiency, ulcerative colitis, BPH, and HLD who presented to the ED on 05/06 with complaints of generalized weakness for the past month or two. He denies any recent fevers, productive cough, chest pain, abdominal pain, nausea, vomiting, diarrhea, or BLE edema. In the ED, pt presented tachycardic, hypotensive, and hypoxemic on RA. Laboratory workup revealed INR 2.07, SCr 1.5, bicarb 26, lipase 74, BNP 93, but otherwise unremarkable. Initial ABG showed 7.49/33/42. CTAchest obtained which was neg for PE but did reveal significant b/l GGO (Rt > Lt) and tiny Rt pleural effusion. Pt remained hypotensive in the ED despite fluid resuscitation and was started on levophed. He was also started on empiric abx, SDS, and admitted to the ICU for further management. PCCM consulted to assist in management of the pt's acute hypoxemic respiratory failure and shock. 05/08: Pt required low dose levophed in the afternoon yesterday but was weaned off early this AM. Hehas been stable on 2L NC and could likely be weaned to RA. Pt reports that he is feeling improved. He denies any complaints of SOB, productive cough, chest pain, dizziness, or lightheadedness. I discussed the case w/ Dr. Stephens. We will plan to bronch tomorrow to obtain a BAL for possible PCP. Pt isagreeable. NPO at midnight. 05/09: Pt was on low dose levophed o/, but this was weaned off around 0200 today. He has been on andoff 2L NC. His hgb dropped to 8.8 today but not obvious signs of bleeding. INR is 6.5. Will give 10mg Vitamin K and reschedule the bronchoscopy for Tuesday. Pt states he is feeling well. He denies anynew complaints. Objective Vitals & Measurements T: 36.6 ???C(Oral) TMIN: 36.4 ???C(Oral) TMAX: 36.6 ???C(Oral) HR: 70(Monitored) RR: 20 BP: 120/55 SpO2: 100% WT: 60.3 kg Intake & Output This visit (24 hour periods starting at 07:00 EST) 05/09/24 * 0 (more content not included)...[facility]01-22-2025 Note Critical Care Progress Note Assessment/Plan 1. Acute hypoxic respiratory failure (J96.01: Acute respiratory failure with hypoxia) Suspect 2/2 opportunistic infection vs possible drug reaction Former smoker Plan: - Currently on RA - Titrate O2 for sats 92-96% - Continue bronchodilators - CTA chest revealed b/l GGO concerning for viral PNA vs inflammatory process. COVID and RVP are negative. Procal is negative. No leukocytosis. Pt recently received a Stelara injection for his UC. Unclear if this is contributing to his CT findings and respiratory failure. - Will treat his pulmonary infiltrates with empiric abx for now - CRP is improving - LDH is 452 --> concerning for possible PCP - Discussed the case w/ Dr. Stephens. Will plan for bronch Tuesday if INR is improved. - Encourage IS and OOB VTE ppx: Coumadin GI ppx: PPI 2. Shock (R57.9: Shock, unspecified) Suspect distributive shock 2/2 adrenal insufficiency vs possible sepsis Plan: - Sepsis protocol - Sepsis bolus given in the ED - Blood cx's NGTD - MRSA swab neg --> Vanco d/c'd - Pt was recently on a month long prednisone course of 60mg daily which was abruptly stopped a few days ago. Primary team started SDS which seemed to improve his BP but he required levophed again yesterday evening. Cortisol level added to ED labs and resulted as 24.1, making adrenal insufficiency very unlikely. Will d/c SDS. - Levophed weaned off 7. Anemia (D64.9: Anemia, unspecified) Acute anemia c/b supratherapeutic INR Plan: - Serial H&H - No obvious signs of bleeding - CTM 9. Acute kidney injury (N17.9: Acute kidney failure, unspecified) 2/2 shock Resolved Plan: - Strict I/O's - Avoid nephrotoxic agents - Serial labs - Replace lytes 12. Paroxysmal A-fib (I48.0: Paroxysmal atrial fibrillation) Supratherapeutic INR Plan: - Hold coumadin - Will give 10mg VitK today - Daily INR - Hold home coreg Orders: phytonadione + Sodium Chloride 0.9% intravenous solution 50 mL, 10 mg = 1 mL, Injection, IV Piggyback, Once, Stop date 05/09/24 10:00:00 EST, Routine, Start date 05/09/24 10:00:00 EST, 153 mL/hr, Infuse over 20 minute(s) Cardiac Diet This patient has a high probability of sudden, clinically significant deterioration, which requiresthe highest level of LIP preparedness to intervene urgently. I managed/supervised life or organ supporting interventions that required frequent LIP assessment. I devoted my full attention to the direct care of this patient for the amount of time indicated below. Time I spent with family or surrogate(s) is included only if the patient was incapable of providing the necessary information or participating in medical decision making. Critical care documentation: The patient has the following organ/system impairments: Acute hypoxemic respiratory failure, Shock, JOSELITO Time spent providing critical services: 32 minutes. Time devoted to teaching and to any procedures I billed separately is not included. Subjective Pt is a 78y M with past medical history significant for CAD s/p ADARSH, chronic HFrEF s/p AICD, PAF oncoumadin, CVA, pancreatic insufficiency, ulcerative colitis, BPH, and HLD who presented to the ED on 05/06 with complaints of generalized weakness for the past month or two. He denies any recent fevers, productive cough, chest pain, abdominal pain, nausea, vomiting, diarrhea, or BLE edema. In the ED, pt presented tachycardic, hypotensive, and hypoxemic on RA. Laboratory workup revealed INR 2.07, SCr 1.5, bicarb 26, lipase 74, BNP 93, but otherwise unremarkable. Initial ABG showed 7.49/33/42. CTAchest obtained which was neg for PE but did reveal significant b/l GGO (Rt > Lt) and tiny Rt pleural effusion. Pt remained hypotensive in the ED despite fluid resuscitation and was started on levophed. He was also started on empiric abx, SDS, and admitted to the ICU for further management. PCCM consulted to assist in management of the pt's acute hypoxemic respiratory failure and shock. 05/08: Pt required low dose levophed in the afternoon yesterday but was weaned off early this AM. Hehas been stable on 2L NC and could likely be weaned to RA. Pt reports that he is feeling improved. He denies any complaints of SOB, productive cough, chest pain, dizziness, or lightheadedness. I discussed the case w/ Dr. Stephens. We will plan to bronch tomorrow to obtain a BAL for possible PCP. Pt isagreeable. NPO at midnight. 05/09: Pt was on low dose levophed o/, but this was weaned off around 0200 today. He has been on andoff 2L NC. His hgb dropped to 8.8 today but not obvious signs of bleeding. INR is 6.5. Will give 10mg Vitamin K and reschedule the bronchoscopy for Tuesday. Pt states he is feeling well. He denies anynew complaints. Objective Vitals & Measurements T: 36.6 ???C(Oral) TMIN: 36.4 ???C(Oral) TMAX: 36.6 ???C(Oral) HR: 70(Monitored) RR: 20 BP: 120/55 SpO2: 100% WT: 60.3 kg Intake & Output This visit (24 hour periods starting at 07:00 EST) 05/09/24 * 0 (more content not included)...[facility]01-22-2025 Note Progress Note-Physician Assessment/Plan Awaiting cardio records w/ echo from [facility] 1. Acute hypoxic respiratory failure (J96.01: Acute respiratory failure with hypoxia) 2/2 opportunistic infection vs possible drug reaction to Stelara. 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 COVID and RVP are negative. Procal is negative. No leukocytosis. -COVID Ag/PCR, PCT, Flu A&B, RVP - neg -> unclear causation of his CTA findings -Supplemental O2 Consult PCCM: bronch today cancelled d/t INR pendingn now on Tuesday Pulm. infiltrates tx w/empiric antbx for now. 2. Shock (R57.9: Shock, unspecified) POA -Suspect distributive shock 2/2 adrenal insufficiency vs possible sepsis--improving. -04/03: Pt. started pred 20mg TID then abruptly stopped on 04/29 prior to Stelara on 05/03 -> concern for adrenal insuff. 2/2 abrupt discont. of pred after approx. 1 month of dosing; ---> IV hydrocortisone q6---Cortisol level added to ED labs and resulted as 24.1, making adrenal insufficiencyvery unlikely. d/c steroids. -IV norepi gtt. for MAP < 65 ---weaned off last night. -IV abx. as below -Hold entresto, spironolactone, carvedilol -Echo: EF 20-25%, severe LV dysfunction, LV moderately dilated, akinetic mid to distal anteroseptum, mid to distal anterior wall, apex and distal inferior wall. Mild TR, RVSP is 35 mmHg. Consult PCCM: defer mgt. 3. Acute hypotension (I95.9: Hypotension, unspecified) Initially thought related anti-hypertensive meds c/w dehydration from poor po intake, pt. was ppfgq2M IVF and unable to maintain MAP 65 or > -Hx. of low normotensive sbp low 100 range and dbp 40 -50 range -See above 4. PNA (pneumonia) (J18.9: Pneumonia, unspecified organism) Stelara can cause cryptogenic organizing pneumonia vs. eosinophilic pneumonitis however eosinophil level is 0 -Med nebs, flutter device, mucinex, supplemental 02 -Chest physiotherapy if warranted -Sputum cx. - pending -Bl. cx. 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 5. Pleural effusion on right (J90: Pleural effusion, not elsewhere classified) Per CTA -Caution w/ IVF 6. Acute sinusitis (J01.90: Acute sinusitis, unspecified) CT head: Right maxillary sinusitis, remote right frontal lobe infarct, mild cerebral atrophy with ventricular enlargement, mild ex-vacuo dilation anterior horn right lateral ventricle. -IV abx as above 7. Anemia (D64.9: Anemia, unspecified) Baseline hgb. level - 13 -No acute bleeding noted, hemodynamically stable -Hepatic panel - elevated AST -Anemia panel -> ferrous sulfate BID w/ daily miralax -Trend labs + Hemoccult stool -Consult GI: pending 8. Urinary retention with incomplete bladder emptying (R33.9: Retention of urine, unspecified) W/ known hx. of BPH not on med tx. -Bladder scan > 600ml, PVR > 400ml in spite of void -Gill -Hold tamsulosin dosing 2/2 hypotension -Voiding trials when approp. 9. Acute kidney injury (N17.9: Acute kidney failure, unspecified) 2/2 dehydration w/shock. now resolved. -Baseline Cr 1.0 -Hold spironolactone???resume as soon as possible given known HF -Trend BMP and replace lytes as needed. 10. 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 follows cardio at [facility], s/p ADARSH -Asa, atorvastatin, -Hold carvedilol, Entresto, spironolactone Records from [facility] pending. 11. Chronic systolic heart failure (I50.22: Chronic systolic (congestive) heart failure) w/ AICD in situ + BNP 93 - caution w/ IVF as above -Cardiac meds as above 12. Paroxysmal A-fib (I48.0: Paroxysmal atrial fibrillation) -Hold carvedilol, -Warfarin--supratherapeutic INR again today no 6.51 after receiving 8mg of Coumadin 1/20 Vitamin K 10mg per pccm. Rx dosing Coumadin holding dose today. 13. HTN (hypertension) (I10: Essential (primary) hypertension) -Cardiac meds as above 14. HLD (hyperlipidemia) (E78.5: Hyperlipidemia, unspecified) -Atorvastatin 15. Pancreatic insufficiency (K86.89: Other specified diseases of pancreas) -Creon - pt. may take from home supply 16. UC (ulcerative colitis) (K51.90: Ulcerative colitis, unspecified, without complications) -CT A/P: Hepatic steatosis, sigmoid diverticulosis Stool occult positive but no real drop in Hgb. -Pt. reports scant amt. of blood in his brief, he is unsure if it was from his penis or rectum - see above -IV sterlara on 05/03 at infusion clinic 17. BPH (benign prostatic hyperplasia) (N40.0: Benign prostatic hyperplasia without lower urinary tract symptoms) -See above 18. History of CVA with residual deficit (I69.30: Unspecified sequelae of cerebral infarction) Chronic residual L hemiplegia (more content not included)...[facility]:Result Comment: Electronically Signed By: Azucena CROWLEY\.br\Date and Time Signed: 05/09/24 10:56 EST\.br\Electronically Co-Signed By: Leodan Pandya DO\.br\Date and Time Co-Signed:05/09/24 12:20 [id number] NoteConsultation Note Patient: BENNIE DENNIS Age: 78 years Sex: Male : 1945 Associated Diagnoses: None Author: Debra STEWART, Eloisa Cheung History of Present Illness Gastroenterology Consult Patient is known to GI service with history of UC and PBC Recently evaluated in the GI office for anemia Presented with sob and anemia Was found to have GOO on CT imaging Previous clinic note: Patient is a(n) 78 year old male who presents today for a sick call with c/o weakness after starting Mely. Mely prescribed for PBC. Feeling weak since starting medication Patient also c/o bilateral feet and ankles swelling and dizziness. Stelara started for UC recently. How are bowels moving? Normal Any blood in stools? No Creon started for pancreatic insufficiency. Any issues with it? Taking aspirin 81mg and warfarin Denies GLP-1 agonists. Last visit w/Dr. Hassan: Assessment/Plan 1. Ulcerative colitis (K51.90: Ulcerative colitis, unspecified, without complications) 2. Esophageal dysphagia (R13.19: Other dysphagia) 3. Loose stools (R19.5: Other fecal abnormalities) 4. Blood in stool (K92.1: Melena) 5. Elevated liver enzymes (R74.8: Abnormal levels of other serum enzymes) Orders: omeprazole, 40 mg = 1 cap(s), Oral, Daily, # 90 cap(s), Refills(s) 3, [facility] Awaiting blood work to start outpatient on Stelara Will bring back after 8 to 12 weeks to assess and discuss maintenance EGD w/ Dr Hassan 03/28/24 Findings 1. Small hiatal hernia. Mild Schatzki ring was noted at the GE junction. Dilation was performed using TTS balloon 18-19-20 mm, dilation was perfumed to 20 mm with moderate resistance. Minimal mucosaldisruption was noted post dilation. No wall defect was seen afterwards. Biopsies obtained to disrupt the ring further and to obtain more samples from mid and lower esophagus 2. Patchy erythema with scattered erosions consistent with erosive gastropathy status post biopsies 3. Normal duodenum. Impression and Plan hiatal hernia Schatzki's ring Erosive gastropathy Colonoscopy w/ Dr Hassan 03/28/24 Findings Colitis changes noted in left colon compatible with previous history of ulcerative colitis Godinez score 2 with moderate disease with marked erythema, absent vascular pattern, friability, erosions Random biopsies were taken to rule out CMV. Diverticulosis and large internal hemorrhoids Impression and Plan active left-sided colitis (Godinez 2) Diverticulosis Internal hemorrhoids Pathology: Final Diagnosis (Verified) A: STOMACH, BIOPSY: ??? ANTRAL MUCOSA WITH MODERATE CHRONIC ACTIVE GASTRITIS. ??? NO GRANULOMA OR DYSPLASIA IDENTIFIED. ??? NO H. PYLORI MICROORGANISMS IDENTIFIED WITH IMMUNOSTAIN. B: ESOPHAGUS, BIOPSY: ??? ESOPHAGEAL SQUAMOUS MUCOSA WITHIN NORMAL LIMITS. ??? NO INTESTINAL METAPLASIA OR GLANDULAR EPITHELIUM. C: LEFT COLON, BIOPSY: ??? CHRONIC ACTIVE COLITIS WITH EROSION. ??? NO GRANULOMA OR DYSPLASIA. Review of Systems Constitutional Negative except for HPI Health Status Allergies: Allergies (1) Active Severity Reaction No Known Medication Allergies None Documented Current medications: (Selected) Inpatient Medications Ordered Miralax 3350 17 gram packet: 17 gram = 1 EA, Powder-Recon, Oral, Daily, Routine, Start date 05/07/24 9:00:00 EST, 05/06/24 16:01:00 EST Mucinex 600 mg Tab-ER: 1,200 mg = 2 tab(s), Tab-ER, Oral, BID, Routine, Start date 05/06/24 21:00:00 EST, 05/06/24 14:34:00 EST Pantoprazole [address] Tab: 40 mg = 1 tab(s), Tab-DR, Oral, Daily, Routine, Start date 05/07/24 9:00:00 EST, 05/06/24 19:47:00 EST Sodium Chloride 0.9% IV Alisha 1000 mL 1,000 mL: 1,000 mL, IV, 20 mL/hr, Other (see comment), Routine,Start date 05/07/24 19:47:00 EST, 50 hour(s), Total volume (mL): 1,000, 62.6 kg, 1.73, m2 Zofran 4 mg/2 mL Injection: 4 mg = 2 mL, Injection, IV Push, q6hr PRN Nausea, Routine, Start date 05/06/24 14:34:00 EST, 05/06/24 14:34:00 EST acetaminophen 325 mg Tab: 650 mg = 2 tab(s), Tab, Oral, q6hr PRN Pain, Routine, Start date 05/06/2513:34:00 EST, 05/06/24 14:34:00 EST atorvastatin 40 mg Tab: 80 mg = 2 tab(s), Tab, Oral, Daily, Routine, Start date 05/07/24 9:00:00 EST, 05/06/24 19:47:00 EST ferrous sulfate 325 mg Tab: 325 mg = 1 tab(s), Tab, Oral, BIDWM, Routine, Start date 05/06/24 17:00:00 EST, 05/06/24 16:01:00 EST ipratropium 0.02% Inh Alisha 2.5 mL: 2.5 mL, Soln-Inh, NEB, QID, Routine, Start date 05/06/24 16:00:00EST levalbuterol 0.63 mg/3 mL Inh Alisha: 0.63 mg = 3 mL, Soln-Inh, Inhalation, QID, Routine, Start date 05/06/24 16:00:00 EST, 05/06/24 14:34:00 EST norepinephrine additive 8 mg [0.05 mcg/kg/min] + Premix Dextrose 5% Diluent 250 mL: 250 mL, IV, 5.87 mL/hr, Routine, Start date 05/06/24 18:59:00 EST, 42.6 hour(s), Total volume (mL): 250, 0.05-3.3 mcg/kg/min, Titrate @ 0.02 mcg/kg/min, Maintain SBP > 90, 62.6 kg, 1.73, m2 pancrelipase: = 1 cap(s), Cap-DR, Oral, TIDWM, Start date (more content not included)...[facility]:Result Comment: Electronically Signed By: Eloisa Hassan MD\.br\Date and Time Signed: 05/09/2510:53 [id number] NoteConsultation Note Patient: BENNIE DENNIS Age: 78 years Sex: Male : 1945 Associated Diagnoses: None Author: Eloisa Hassan MD History of Present Illness Gastroenterology Consult Patient is known to GI service with history of UC and PBC Recently evaluated in the GI office for anemia Presented with sob and anemia Was found to have GOO on CT imaging Previous clinic note: Patient is a(n) 78 year old male who presents today for a sick call with c/o weakness after starting Mely. Mely prescribed for PBC. Feeling weak since starting medication Patient also c/o bilateral feet and ankles swelling and dizziness. Stelara started for UC recently. How are bowels moving? Normal Any blood in stools? No Creon started for pancreatic insufficiency. Any issues with it? Taking aspirin 81mg and warfarin Denies GLP-1 agonists. Last visit w/Dr. Hassan: Assessment/Plan 1. Ulcerative colitis (K51.90: Ulcerative colitis, unspecified, without complications) 2. Esophageal dysphagia (R13.19: Other dysphagia) 3. Loose stools (R19.5: Other fecal abnormalities) 4. Blood in stool (K92.1: Melena) 5. Elevated liver enzymes (R74.8: Abnormal levels of other serum enzymes) Orders: omeprazole, 40 mg = 1 cap(s), Oral, Daily, # 90 cap(s), Refills(s) 3, [facility]waiting blood work to start outpatient on Stelara Will bring back after 8 to 12 weeks to assess and discuss maintenance EGD w/ Dr Hassan 03/28/24 Findings 1. Small hiatal hernia. Mild Schatzki ring was noted at the GE junction. Dilation was performed using TTS balloon 18-19-20 mm, dilation was perfumed to 20 mm with moderate resistance. Minimal mucosaldisruption was noted post dilation. No wall defect was seen afterwards. Biopsies obtained to disrupt the ring further and to obtain more samples from mid and lower esophagus 2. Patchy erythema with scattered erosions consistent with erosive gastropathy status post biopsies 3. Normal duodenum. Impression and Plan hiatal hernia Schatzki's ring Erosive gastropathy Colonoscopy w/ Dr Hassan 03/28/24 Findings Colitis changes noted in left colon compatible with previous history of ulcerative colitis Godinez score 2 with moderate disease with marked erythema, absent vascular pattern, friability, erosions Random biopsies were taken to rule out CMV. Diverticulosis and large internal hemorrhoids Impression and Plan active left-sided colitis (Godinez 2) Diverticulosis Internal hemorrhoids Pathology: Final Diagnosis (Verified) A: STOMACH, BIOPSY: ??? ANTRAL MUCOSA WITH MODERATE CHRONIC ACTIVE GASTRITIS. ??? NO GRANULOMA OR DYSPLASIA IDENTIFIED. ??? NO H. PYLORI MICROORGANISMS IDENTIFIED WITH IMMUNOSTAIN. B: ESOPHAGUS, BIOPSY: ??? ESOPHAGEAL SQUAMOUS MUCOSA WITHIN NORMAL LIMITS. ??? NO INTESTINAL METAPLASIA OR GLANDULAR EPITHELIUM. C: LEFT COLON, BIOPSY: ??? CHRONIC ACTIVE COLITIS WITH EROSION. ??? NO GRANULOMA OR DYSPLASIA. Review of Systems Constitutional Negative except for HPI Health Status Allergies: Allergies (1) Active Severity Reaction No Known Medication Allergies None Documented Current medications: (Selected) Inpatient Medications Ordered Miralax 3350 17 gram packet: 17 gram = 1 EA, Powder-Recon, Oral, Daily, Routine, Start date 05/07/24 9:00:00 EST, 05/06/24 16:01:00 EST Mucinex 600 mg Tab-ER: 1,200 mg = 2 tab(s), Tab-ER, Oral, BID, Routine, Start date 05/06/24 21:00:00 EST, 05/06/24 14:34:00 EST Pantoprazole [address] Tab: 40 mg = 1 tab(s), Tab-DR, Oral, Daily, Routine, Start date 05/07/24 9:00:00 EST, 05/06/24 19:47:00 EST Sodium Chloride 0.9% IV Alisha 1000 mL 1,000 mL: 1,000 mL, IV, 20 mL/hr, Other (see comment), Routine,Start date 05/07/24 19:47:00 EST, 50 hour(s), Total volume (mL): 1,000, 62.6 kg, 1.73, m2 Zofran 4 mg/2 mL Injection: 4 mg = 2 mL, Injection, IV Push, q6hr PRN Nausea, Routine, Start date 05/06/24 14:34:00 EST, 05/06/24 14:34:00 EST acetaminophen 325 mg Tab: 650 mg = 2 tab(s), Tab, Oral, q6hr PRN Pain, Routine, Start date 05/06/2513:34:00 EST, 05/06/24 14:34:00 EST atorvastatin 40 mg Tab: 80 mg = 2 tab(s), Tab, Oral, Daily, Routine, Start date 05/07/24 9:00:00 EST, 05/06/24 19:47:00 EST ferrous sulfate 325 mg Tab: 325 mg = 1 tab(s), Tab, Oral, BIDWM, Routine, Start date 05/06/24 17:00:00 EST, 05/06/24 16:01:00 EST ipratropium 0.02% Inh Alisha 2.5 mL: 2.5 mL, Soln-Inh, NEB, QID, Routine, Start date 05/06/24 16:00:00EST levalbuterol 0.63 mg/3 mL Inh Alisha: 0.63 mg = 3 mL, Soln-Inh, Inhalation, QID, Routine, Start date 05/06/24 16:00:00 EST, 05/06/24 14:34:00 EST norepinephrine additive 8 mg [0.05 mcg/kg/min] + Premix Dextrose 5% Diluent 250 mL: 250 mL, IV, 5.87 mL/hr, Routine, Start date 05/06/24 18:59:00 EST, 42.6 hour(s), Total volume (mL): 250, 0.05-3.3 mcg/kg/min, Titrate @ 0.02 mcg/kg/min, Maintain SBP > 90, 62.6 kg, 1.73, m2 pancrelipase: = 1 cap(s), Cap-DR, Oral, TIDWM, Start date (more content not included)...[facility] HospitalComment on [facility]:Result Comment: Electronically Signed By: Debra STEWART, Eloisa Purdy.br\Date and Time Signed: 05/09/2510:53 [id number] NoteProgress Note - Pharmacy Pharmacy to Dose Warfarin Indication for warfarin therapy: a fib Target INR: 2.0-3.0 Hospitalist: Elizabeth On warfarin prior to admission? Yes Home regimen: Tuesday: 8 mg Tuesday: 4 mg Tuesday: 8 mg Tuesday: 4 mg : 8 mg Tuesday: 4 mg Tuesday: 8 mg Weekly dose: 44 mg INR values/Dose given: 05/06/24: INR 2.07 - 8 mg 05/07/24: INR 3.26 - dose held 05/08/24: INR 5.94 05/09/24: INR 6.51 Scheduled dose for today: HOLD DOSE Other Comments: 05/09: INR supratherapeutic again today, H&H decreased, checked with ICU nurse to confirm patient was not bleeding anywhere she could visibly see, did not see any bleed. Will continue to hold, andfollow. 05/08: INR supratherapeutic again today, trending labs, will continue to follow 05/07: large increase in INR overnight. will hold dose today 05/06: patient has not had dose today. INR on low end of therapeutic. will give home dose. has been [facility]rom[facility]ce[facility]inFisher [facility] [facility] 05-08-2024 NoteProgress Note-Physician Assessment/Plan Awaiting cardio records w/ echo from [facility] 1. Acute hypoxic respiratory failure (J96.01: Acute respiratory failure with hypoxia) 2/2 opportunistic infection vs possible drug reaction to Stelara. 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 COVID and RVP are negative. Procal is negative. No leukocytosis. -COVID Ag/PCR, PCT, Flu A&B, RVP - neg -> unclear causation of his CTA findings -Supplemental O2 Consult PCCM: pending bronch in AM. Pulm. infiltrates tx w/empiric antbx for now. 2. Shock (R57.9: Shock, unspecified) POA -Suspect distributive shock 2/2 adrenal insufficiency vs possible sepsis -04/03: Pt. started pred 20mg TID then abruptly stopped on 04/29 prior to Stelara on 05/03 -> concern for adrenal insuff. 2/2 abrupt discont. of pred after approx. 1 month of dosing; ---> IV hydrocortisone q6---Cortisol level added to ED labs and resulted as 24.1, making adrenal insufficiencyvery unlikely. d/c steroids. -IV norepi gtt. for MAP < 65 ---required during the night but off again today. -IV abx. as below -Hold entresto, spironolactone, carvedilol -Echo: EF 20-25%, severe LV dysfunction, LV moderately dilated, akinetic mid to distal anteroseptum, mid to distal anterior wall, apex and distal inferior wall. Mild TR, RVSP is 35 mmHg. -Awaiting echo reports from [facility] for comparison Consult PCCM: defer mgt. 3. Acute hypotension (I95.9: Hypotension, unspecified) Initially thought related anti-hypertensive meds c/w dehydration from poor po intake, pt. was cdxnz4M IVF and unable to maintain MAP 65 or > -Hx. of low normotensive sbp low 100 range and dbp 40 -50 range -See above 4. PNA (pneumonia) (J18.9: Pneumonia, unspecified organism) Stelara can cause cryptogenic organizing pneumonia vs. eosinophilic pneumonitis however eosinophil level is 0 -Med nebs, flutter device, mucinex, supplemental 02 -Chest physiotherapy if warranted -Sputum cx. - pending -Bl. cx. 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 5. Pleural effusion on right (J90: Pleural effusion, not elsewhere classified) Per CTA -Caution w/ IVF 6. Acute sinusitis (J01.90: Acute sinusitis, unspecified) CT head: Right maxillary sinusitis, remote right frontal lobe infarct, mild cerebral atrophy with ventricular enlargement, mild ex-vacuo dilation anterior horn right lateral ventricle. -IV abx as above 7. Anemia (D64.9: Anemia, unspecified) Baseline hgb. level - 13 -No acute bleeding noted, hemodynamically stable -Hepatic panel - elevated AST -Anemia panel -> ferrous sulfate BID w/ daily miralax -Trend labs + Hemoccult stool -Consult GI: pending 8. Urinary retention with incomplete bladder emptying (R33.9: Retention of urine, unspecified) W/ known hx. of BPH not on med tx. -Bladder scan > 600ml, PVR > 400ml in spite of void -Gill -Hold tamsulosin dosing 2/2 hypotension -Voiding trials when approp. 9. Acute kidney injury (N17.9: Acute kidney failure, unspecified) 2/2 dehydration w/shock. now resolved. -Baseline Cr 1.0 -Hold spironolactone???resume as soon as possible given known HF -Trend BMP and replace lytes as needed. 10. 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 follows cardio at [facility], s/p ADARSH -Asa, atorvastatin, -Hold carvedilol, entresto, spironolactone Records from [facility] pending. 11. Chronic systolic heart failure (I50.22: Chronic systolic (congestive) heart failure) w/ AICD in situ + BNP 93 - caution w/ IVF as above -Cardiac meds as above 12. Paroxysmal A-fib (I48.0: Paroxysmal atrial fibrillation) -Hold carvedilol, -Warfarin--supratherapeutic INR today after receiving 8mg of Coumadin last night. Rx dosing Coumadin holding dose today. 13. HTN (hypertension) (I10: Essential (primary) hypertension) -Cardiac meds as above 14. HLD (hyperlipidemia) (E78.5: Hyperlipidemia, unspecified) -Atorvastatin 15. Pancreatic insufficiency (K86.89: Other specified diseases of pancreas) -Creon - pt. may take from home supply 16. UC (ulcerative colitis) (K51.90: Ulcerative colitis, unspecified, without complications) -CT A/P: Hepatic steatosis, sigmoid diverticulosis Stool occult positive but no real drop in Hgb. -Pt. reports scant amt. of blood in his brief, he is unsure if it was from his penis or rectum - see above -IV sterlara on 05/03 at infusion clinic 17. BPH (benign prostatic hyperplasia) (N40.0: Benign prostatic hyperplasia without lower urinary tract symptoms) -See above 18. History of CVA with residual deficit (I69.30: Unspecified sequelae of cerebral infarction) Chronic residual L hemiplegia -Asa (more content not included)...[facility]: Result Comment: Electronically Signed By: Azucena CROWLEY\.br\Date and Time Signed: 05/08/24 12:53 EST\.br\Electronically Co-Signed By: Leodan Pandya DO\.br\Date and Time Co-Signed:05/08/24 13:20 [id number] Note Critical Care Progress Note Assessment/Plan 1. Acute hypoxic respiratory failure (J96.01: Acute respiratory failure with hypoxia) Suspect 2/2 opportunistic infection vs possible drug reaction Former smoker Plan: - Currently on RA - Titrate O2 for sats 92-96% - Continue bronchodilators - CTA chest revealed b/l GGO concerning for viral PNA vs inflammatory process. COVID and RVP are negative. Procal is negative. No leukocytosis. Pt recently received a Stelara injection for his UC. Unclear if this is contributing to his CT findings and respiratory failure. - Will treat his pulmonary infiltrates with empiric abx for now - CRP is 12 --> will continue steroids - LDH is 452 --> concerning for possible PCP - Discussed the case w/ Dr. Stephens. Will plan for bronch tomorrow. NPO at midnight. - Encourage IS and OOB VTE ppx: Coumadin GI ppx: PPI 2. Shock (R57.9: Shock, unspecified) Suspect distributive shock 2/2 adrenal insufficiency vs possible sepsis Plan: - Sepsis protocol - Sepsis bolus given in the ED - Blood cx's, sputum cx pending - MRSA swab neg --> Vanco d/c'd - Pt was recently on a month long prednisone course of 60mg daily which was abruptly stopped a few days ago. Primary team started SDS which seemed to improve his BP but he required levophed again yesterday evening. Cortisol level added to ED labs and resulted as 24.1, making adrenal insufficiency very unlikely. Will d/c SDS. - Levophed weaned off 9. Acute kidney injury (N17.9: Acute kidney failure, unspecified) 2/2 shock Resolved Plan: - Strict I/O's - Avoid nephrotoxic agents - Serial labs - Replace lytes 12. Paroxysmal A-fib (I48.0: Paroxysmal atrial fibrillation) Supratherapeutic INR Plan: - Continue coumadin per pharmacy - Hold home coreg Orders: C-Reactive Protein NPO Diet This patient has a high probability of sudden, clinically significant deterioration, which requiresthe highest level of LIP preparedness to intervene urgently. I managed/supervised life or organ supporting interventions that required frequent LIP assessment. I devoted my full attention to the direct care of this patient for the amount of time indicated below. Time I spent with family or surrogate(s) is included only if the patient was incapable of providing the necessary information or participating in medical decision making. Critical care documentation: The patient has the following organ/system impairments: Acute hypoxemic respiratory failure, Shock, JOSELITO Time spent providing critical services: 32 minutes. Time devoted to teaching and to any procedures I billed separately is not included. Subjective Pt is a 78y M with past medical history significant for CAD s/p ADARSH, chronic HFrEF s/p AICD, PAF oncoumadin, CVA, pancreatic insufficiency, ulcerative colitis, BPH, and HLD who presented to the ED on 05/06 with complaints of generalized weakness for the past month or two. He denies any recent fevers, productive cough, chest pain, abdominal pain, nausea, vomiting, diarrhea, or BLE edema. In the ED, pt presented tachycardic, hypotensive, and hypoxemic on RA. Laboratory workup revealed INR 2.07, SCr 1.5, bicarb 26, lipase 74, BNP 93, but otherwise unremarkable. Initial ABG showed 7.49/33/42. CTAchest obtained which was neg for PE but did reveal significant b/l GGO (Rt > Lt) and tiny Rt pleural effusion. Pt remained hypotensive in the ED despite fluid resuscitation and was started on levophed. He was also started on empiric abx, SDS, and admitted to the ICU for further management. PCCM consulted to assist in management of the pt's acute hypoxemic respiratory failure and shock. 05/08: Pt required low dose levophed in the afternoon yesterday but was weaned off early this AM. Hehas been stable on 2L NC and could likely be weaned to RA. Pt reports that he is feeling improved. He denies any complaints of SOB, productive cough, chest pain, dizziness, or lightheadedness. I discussed the case w/ Dr. Stephens. We will plan to bronch tomorrow to obtain a BAL for possible PCP. Pt isagreeable. NPO at midnight. Objective Vitals & Measurements T: 36.2 ???C(Oral) TMIN: 36.2 ???C(Oral) TMAX: 36.8 ???C(Oral) HR: 75(Monitored) RR: 16 RR: 14 BP: 97/55 SpO2: 100% WT: 58.9 kg Intake & Output This visit (24 hour periods starting at 07:00 EST) 05/08/24 * 05/07/24 05/06/24 Total Summary Intake mL 30.18 1,755.81 2,542.45 Output mL 200 1,220 200 Fluid Balance -169.82 535.81 2,342.45 Intake (9) Oral Intake mL -- 460 200 Sodium Chloride 0.9% mL -- -- 2,000 Sodium Chloride 0.9% intravenous solution 1,000 mL mL 29.18 218.22 -- Sodium Chloride 0.9%, azithromycin mL -- 533.33 250 Sodium Chloride 0.9%, ceftriaxone mL -- 47.38 50 Sodium Chloride 0.9%, piperacillin-tazobactam mL -- 197.61 -- Sodium Chloride 0.9%, vancomycin mL -- 260.61 -- hydrocortisone mL 1 4 4 norepinephrine 8 mg [0.05 mcg/kg/min] + Dextrose 5% (more content not included)...[facility] NoteProgress Note - Pharmacy Vancomycin Pharmacy to Dose Consult Note Indication: Pneumonia Goal Range: AUC/TAYLER: 400 - 600 RECOMMENDATIONS/ PLAN: Pharmacy consulted for vancomycin dosing for BENNIE DENNIS, a 78 Years old, Male who is being treated with vancomycin for pneumonia. 1. Vancomycin therapy has been discontinued. Vancomycin level(s) have been discontinued: Pharmacy vancomycin dosing service will sign off. Thank you for allowing us to participate in this patient's care. Please contact pharmacy if there are questions.[facility]01-21-[facility] NoteProgress Note - Pharmacy Pharmacy to Dose Warfarin Indication for warfarin therapy: a fib Target INR: 2.0-3.0 Hospitalist: Elizabeth On warfarin prior to admission? Yes4 mg tabs at home Home regimen: Tuesday: 8 mg Tuesday: 4 mg Tuesday: 8 mg Tuesday: 4 mg : 8 mg Tuesday: 4 mg Tuesday: 8 mg Weekly dose: 44 mg INR values/Dose given: 05/06/24: INR 2.07 - 8 mg 05/07/24: INR 3.26 - dose held 05/08/24: INR 5.94 Scheduled dose for today: HOLD DOSE Other Comments: 05/08: INR supratherapeutic again today, trending labs, will continue to follow 05/07: large increase in INR overnight. will hold dose today 05/06: patient has not had dose today. INR on low end of therapeutic. will give home dose. has been started on zithromax/rocephin Discharge Plan: [facility] NoteProgress Note-Physician Assessment/Plan Awaiting cardio records w/ echo from [facility] 1. Acute hypoxic respiratory failure (J96.01: Acute respiratory failure with hypoxia) 2/2 PNA +/- drug rxn (Stelara) -Denies home 02, Cpap, Biapap use -> currently requiring 3Lpm NC to maintain pulse ox 92% or > -Initial ABG: pH 7.49, PaCO2 32.9, PaO2 41.6, HCO3 25.9 on room air + SOB/BRITTON, + conversational dyspnea -CTA chest: No PE, b/l peripheral GGO, greater on right, findings may be seen in patients with COVID-19 pneumonia, however other infectious inflammatory etiologies provide similar radiographic appearance, small right pleural effusions, 1 cm right pericardial lymph node enlargement. -COVID Ag/PCR, PCT, Flu A&B, RVP - neg -> unclear causation of his CTA findings -Supplemental O2 -Desat study prior to d/c -See below Consult PCCM: Plan apprec. Ordered: Critical Care Ill/Injured Pt Initial 30-74 Min 72352 2. Shock (R57.9: Shock, unspecified) POA -Acute hypotension likely distributive shock 2/2 adrenal insuff. vs. septic shock given neg. infectious w/u so far. -04/03: Pt. started pred 20mg TID then abruptly stopped on 04/29 prior to Stelara on 05/03 -> concern for adrenal insuff. 2/2 abrupt discont. of pred after approx. 1 month of dosing ---> IV hydrocortisone 100mg x 1, followed by 50mg q6 -IVF x 2 boluses given in ED -> Hold for now given known low EF -IV norepi gtt. for MAP < 65 -05/06: midodrine 5mg x 1 dose -IV abx. as below -Hold entresto, spironolactone, carvedilol -Cortisol level - per lab -> able to sent from admitting blood work (prior to hydrocortisone dosing -> awaiting send out results -Echo: EF 20-25%, severe LV dysfunction, LV moderately dilated, akinetic mid to distal anteroseptum, mid to distal anterior wall, apex and distal inferior wall. Mild TR, RVSP is 35 mmHg. -Awaiting echo reports from [facility] for comparison Consult PCCM: defer mgt. -Plan apprec. 3. Acute hypotension (I95.9: Hypotension, unspecified) Initially thought related anti-hypertensive meds c/w dehydration from poor po intake, pt. was peteb0S IVF and unable to maintain MAP 65 or > -Hx. of low normotensive sbp low 100 range and dbp 40 -50 range -See above 4. PNA (pneumonia) (J18.9: Pneumonia, unspecified organism) Stelara can cause cryptogenic organizing pneumonia vs. eosinophilic pneumonitis however eosinophil level is 0 -MRSA swab: neg -Med nebs, flutter device, mucinex, supplemental 02 -Chest physiotherapy if warranted -Sputum cx. - pending -Bl. cx. - pending -Legionella antigen - pending -Recommend repeat CXR in 4 weeks as outpatient Consult PCCM: -05/07: transition IV azithro/ceftr to IV vanco/zosyn given recurrent hypotension 5. Pleural effusion on right (J90: Pleural effusion, not elsewhere classified) Per CTA -Caution w/ IVF 6. Acute sinusitis (J01.90: Acute sinusitis, unspecified) CT head: Right maxillary sinusitis, remote right frontal lobe infarct, mild cerebral atrophy with ventricular enlargement, mild ex-vacuo dilation anterior horn right lateral ventricle. -IV abx as above 7. Anemia (D64.9: Anemia, unspecified) Baseline hgb. level - 13 -No acute bleeding noted, hemodynamically stable -Hepatic panel - elevated AST -Anemia panel -> ferrous sulfate BID w/ daily miralax -Trend labs + Hemoccult stool -Consult GI: pending 8. Urinary retention with incomplete bladder emptying (R33.9: Retention of urine, unspecified) W/ known hx. of BPH not on med tx. -Bladder scan > 600ml, PVR > 400ml in spite of void -Gill -Hold tamsulosin dosing 2/2 hypotension -Voiding trials when approp. 9. Acute kidney injury (N17.9: Acute kidney failure, unspecified) 2/2 dehydration, infectious process -Baseline Cr 1.0 -Hold spironolactone???resume as soon as possible given known HF -UA - no infectious process -Trend BMP -Avoid nephrotoxic medications as much as possible Consult nephrology: If Cr worsens 10. 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 follows cardio at [facility], s/p ADARSH -Asa, atorvastatin, -Hold carvedilol, entresto, spironolactone 11. Chronic systolic heart failure (I50.22: Chronic systolic (congestive) heart failure) w/ AICD in situ + BNP 93 - caution w/ IVF as above -Cardiac meds as above 12. Paroxysmal A-fib (I48.0: Paroxysmal atrial fibrillation) -Hold carvedilol, -Warfarin 13. HTN (hypertension) (I10: Essential (primary) hypertension) -Cardiac meds as above 14. HLD (hyperlipidemia) (E78.5: Hyperlipidemia, unspecified) -Atorvastatin 15. Pancreatic insufficiency (K86.89: Other specified diseases of pancreas) -Creon - pt. may take from home supply 16. UC (ulcerative colitis) (K51.90: Ulcerative colitis, unspecified, without complications) -CT A/P: Hepatic steatosis, sigmoid diverticulosis -Pt. reports scant amt. of blood in his brief (more content not included)... [facility] on [facility]:Result Comment: Electronically Signed By: ORESTES OGLESBY Elizabeth\.br\Date and Time Signed: 05/07/24 15:33 EST\.br\Electronically Co-Signed By: ORESTES OGLESBY, Elizabeth\.br\Date and Time Co-Signed: 05/07/24 17:02 EST\.br\Electronically Co-Signed By: ORESTES OGLESBY Elizabeth\.br\Date and Time Co-Signed: 05/07/24 20:00 EST\.br\Electronically Co- Signed By: ORESTES OGLESBY Elizabeth\.br\Date and Time Co-Signed: 05/07/24 20:07 EST\.br\Electronically Co-Signed By: Leodan Pandya DO\.br\Date and Time Co-Signed: 05/08/24 07:01 [id number] NoteConsultation Note Chief Complaint Generalized weakness Reason for Consultation Acute hypoxemic respiratory failure, Shock History of Present Illness Pt is a 78y M with past medical history significant for CAD s/p ADARSH, chronic HFrEF s/p AICD, PAF oncoumadin, CVA, pancreatic insufficiency, ulcerative colitis, BPH, and HLD who presented to the ED on 05/06 with complaints of generalized weakness for the past month or two. He denies any recent fevers, productive cough, chest pain, abdominal pain, nausea, vomiting, diarrhea, or BLE edema. In the ED, pt presented tachycardic, hypotensive, and hypoxemic on RA. Laboratory workup revealed INR 2.07, SCr 1.5, bicarb 26, lipase 74, BNP 93, but otherwise unremarkable. Initial ABG showed 7.49/33/42. CTAchest obtained which was neg for PE but did reveal significant b/l GGO (Rt > Lt) and tiny Rt pleural effusion. Pt remained hypotensive in the ED despite fluid resuscitation and was started on levophed. He was also started on empiric abx, SDS, and admitted to the ICU for further management. PCCM consulted to assist in management of the pt's acute hypoxemic respiratory failure and shock. Review of Systems 12 point review of systems performed with patient, pertinent positives and negatives stated in HPI. Physical Exam Vitals & Measurements T: 36.7 ???C(Oral) TMIN: 36.4 ???C(Oral) TMAX: 36.8 ???C(Oral) HR: 86(Monitored) RR: 18 BP: 107/58 SpO2: 96% HT: 172 cm WT: 58.3 kg General: No acute distress Skin: Warm, dry Head: Atraumatic, normocephalic Neck: Trachea midline, no adenopathy, no tenderness Eye: PERRL, sclera anicteric ENMT: Moist mucous membranes Cardiovascular: Regular rate and rhythm. No murmurs, rubs, or gallops. No BLE edema. Respiratory: Fine crackles b/l. No wheezing or rhonchi. No stridor. No accessory muscle use. Chest wall: No deformity Gastrointestinal: Soft, non-tender, non-distended Back: No tenderness Extremities: No deformity Neurological: Awake and alert. Following commands. Psychiatric: Cooperative. Affect appropriate for age. Images IMPRESSION: NO CT EVIDENCE PULMONARY EMBOLISM. BILATERAL PERIPHERAL GROUNDGLASS OPACITIES, GREATER ON RIGHT. THESE FINDINGS MAY BE SEEN IN PATIENTS HAVING COVID 19 PNEUMONIA. HOWEVER, OTHER INFECTIOUS AND INFLAMMATORY ETIOLOGIES MAY PROVIDE A SIMILAR RADIOGRAPHIC APPEARANCE. SMALL RIGHT PLEURAL EFFUSION. OTHER FINDINGS DISCUSSED. CTA CHEST WITH INTRAVENOUS CONTRAST MEDIUM. COMPARISON: NONE AVAILABLE REASON FOR EXAMINATION: WEAKNESS FOR 3 MONTHS. RECEIVING ANTICOAGULATION. TECHNIQUE: Helical CTA was performed through the chest utilizing 100 cc of Isovue 370 intravenous contrast. Images were obtained with bolus tracking in order to opacify the pulmonary arteries. Thick section coronal MIP 3D reconstructions were performed on a separate workstation. FINDINGS: Pulmonary arteries: No intraluminal filling defects. Cardiac: Size normal. No pericardial effusion. Coronary artery calcification identified. Pacemaker wires right atrium and right ventricle. Aorta: Normal in course and caliber. Lungs: Right lung shows no nodules or masses. Diffuse groundglass opacity, right upper lobe. Groundglass opacity also identified right lower lobe. No right pleural effusion with dependent subsegmental consolidation right lung base. No pneumothorax. Left lung shows dependent subsegmental atelectatic change, left upper lobe.. Groundglass opacity with left lower lobe dependent subsegmental consolidation. No pleural effusion, nodules, masses, pneumothorax. Lymph nodes: 1 cm right precarinal lymph node enlargement. No mediastinal, and no axillary lymph node enlargement. Upper abdomen: Limited imaging upper abdomen shows small hiatal hernia. Musculoskeletal: No osteoblastic, and no osteolytic lesions. All CT scans at this facility use dose modulation, iterative reconstruction, and/or weight based dosing when appropriate to reduce radiation dose to as low as reasonably achievable. Ordering Provider: Rima Anthony Assessment/Plan 1. Acute hypoxic respiratory failure (J96.01: Acute respiratory failure with hypoxia) Suspect 2/2 PNA vs possible drug reaction Former smoker Plan: - Currently on 2L NC - Titrate O2 for sats 92-96% - Continue bronchodilators - CTA chest revealed b/l GGO concerning for viral PNA vs inflammatory process. COVID and RVP are negative. Procal is negative. No leukocytosis. Pt recently received a Stelara injection for his UC. Unclear if this is contributing to his CT findings and respiratory failure. - Will treat his pulmonary infiltrates with empiric abx for now - CRP is 12 --> will continue steroids - Encourage IS and OOB VTE ppx: Coumadin GI ppx: PPI 2. Shock (R57.9: Shock, unspecified) Suspect distributive shock 2/2 adrenal insufficiency vs possible sepsis Plan: - Sepsis protocol - Sepsis bolus given in the ED - Blood cx's, sputum cx, and MRSA sw (more content not included)...[facility] Hospital[facility] on above:Result Comment: Electronically Signed By: Maya STEWART, Neela Cardona\.br\Date and Time Signed: 05/07/24 23:49 [id number] Note Consultation Note Chief Complaint Generalized weakness Reason for Consultation Acute hypoxemic respiratory failure, Shock History of Present Illness Pt is a 78y M with past medical history significant for CAD s/p ADARSH, chronic HFrEF s/p AICD, PAF oncoumadin, CVA, pancreatic insufficiency, ulcerative colitis, BPH, and HLD who presented to the ED on 05/06 with complaints of generalized weakness for the past month or two. He denies any recent fevers, productive cough, chest pain, abdominal pain, nausea, vomiting, diarrhea, or BLE edema. In the ED, pt presented tachycardic, hypotensive, and hypoxemic on RA. Laboratory workup revealed INR 2.07, SCr 1.5, bicarb 26, lipase 74, BNP 93, but otherwise unremarkable. Initial ABG showed 7.49/33/42. CTAchest obtained which was neg for PE but did reveal significant b/l GGO (Rt > Lt) and tiny Rt pleural effusion. Pt remained hypotensive in the ED despite fluid resuscitation and was started on levophed. He was also started on empiric abx, SDS, and admitted to the ICU for further management. PCCM consulted to assist in management of the pt's acute hypoxemic respiratory failure and shock. Review of Systems 12 point review of systems performed with patient, pertinent positives and negatives stated in HPI. Physical Exam Vitals & Measurements T: 36.7 ???C(Oral) TMIN: 36.4 ???C(Oral) TMAX: 36.8 ???C(Oral) HR: 86(Monitored) RR: 18 BP: 107/58 SpO2: 96% HT: 172 cm WT: 58.3 kg General: No acute distress Skin: Warm, dry Head: Atraumatic, normocephalic Neck: Trachea midline, no adenopathy, no tenderness Eye: PERRL, sclera anicteric ENMT: Moist mucous membranes Cardiovascular: Regular rate and rhythm. No murmurs, rubs, or gallops. No BLE edema. Respiratory: Fine crackles b/l. No wheezing or rhonchi. No stridor. No accessory muscle use. Chest wall: No deformity Gastrointestinal: Soft, non-tender, non-distended Back: No tenderness Extremities: No deformity Neurological: Awake and alert. Following commands. Psychiatric: Cooperative. Affect appropriate for age. Images IMPRESSION: NO CT EVIDENCE PULMONARY EMBOLISM. BILATERAL PERIPHERAL GROUNDGLASS OPACITIES, GREATER ON RIGHT. THESE FINDINGS MAY BE SEEN IN PATIENTS HAVING COVID 19 PNEUMONIA. HOWEVER, OTHER INFECTIOUS AND INFLAMMATORY ETIOLOGIES MAY PROVIDE A SIMILAR RADIOGRAPHIC APPEARANCE. SMALL RIGHT PLEURAL EFFUSION. OTHER FINDINGS DISCUSSED. CTA CHEST WITH INTRAVENOUS CONTRAST MEDIUM. COMPARISON: NONE AVAILABLE REASON FOR EXAMINATION: WEAKNESS FOR 3 MONTHS. RECEIVING ANTICOAGULATION. TECHNIQUE: Helical CTA was performed through the chest utilizing 100 cc of Isovue 370 intravenous contrast. Images were obtained with bolus tracking in order to opacify the pulmonary arteries. Thick section coronal MIP 3D reconstructions were performed on a separate workstation. FINDINGS: Pulmonary arteries: No intraluminal filling defects. Cardiac: Size normal. No pericardial effusion. Coronary artery calcification identified. Pacemaker wires right atrium and right ventricle. Aorta: Normal in course and caliber. Lungs: Right lung shows no nodules or masses. Diffuse groundglass opacity, right upper lobe. Groundglass opacity also identified right lower lobe. No right pleural effusion with dependent subsegmental consolidation right lung base. No pneumothorax. Left lung shows dependent subsegmental atelectatic change, left upper lobe.. Groundglass opacity with left lower lobe dependent subsegmental consolidation. No pleural effusion, nodules, masses, pneumothorax. Lymph nodes: 1 cm right precarinal lymph node enlargement. No mediastinal, and no axillary lymph node enlargement. Upper abdomen: Limited imaging upper abdomen shows small hiatal hernia. Musculoskeletal: No osteoblastic, and no osteolytic lesions. All CT scans at this facility use dose modulation, iterative reconstruction, and/or weight based dosing when appropriate to reduce radiation dose to as low as reasonably achievable. Ordering Provider: Rima Anthony Assessment/Plan 1. Acute hypoxic respiratory failure (J96.01: Acute respiratory failure with hypoxia) Suspect 2/2 PNA vs possible drug reaction Former smoker Plan: - Currently on 2L NC - Titrate O2 for sats 92-96% - Continue bronchodilators - CTA chest revealed b/l GGO concerning for viral PNA vs inflammatory process. COVID and RVP are negative. Procal is negative. No leukocytosis. Pt recently received a Stelara injection for his UC. Unclear if this is contributing to his CT findings and respiratory failure. - Will treat his pulmonary infiltrates with empiric abx for now - CRP is 12 --> will continue steroids - Encourage IS and OOB VTE ppx: Coumadin GI ppx: PPI 2. Shock (R57.9: Shock, unspecified) Suspect distributive shock 2/2 adrenal insufficiency vs possible sepsis Plan: - Sepsis protocol - Sepsis bolus given in the ED - Blood cx's, sputum cx, and MRSA sw (more content not included)...[facility]:Result Comment: Electronically Signed By: Maya STEWART, Neela Cardona\.br\Date and Time Signed: 05/07/24 23:49 [id number] NoteProgress Note - Pharmacy Vancomycin Pharmacy to Dose Consult Note Indication: Pneumonia Goal Range: AUC/TAYLER: 400 - 600 RECOMMENDATIONS/PLAN: Pharmacy consulted for vancomycin dosing for BENNIE DENNIS, a 78 Years old, Male who is being treated with vancomycin for pneumonia/shock. 1. VANCO STATUS: Vancomycin therapy is still active, today is day 1 of treatment. Patient is receiving Vancomycin 1000mg IV q24h. 2. VANCO LEVEL: No Vancomycin level has been drawn for this dosing regimen. 3. DOSING RECS: Initial Dose:1000mg IV q24h 4. NEXT LEVEL: The next paired levels are scheduled. Peak at 1800 on 05/09 and Trough at 1500 on 05/10. 5. MRSA NASAL SWAB? A MRSA Nasal Swab is appropriate and has been ordered.prelim neg 05/07 We will follow patient renal function, vancomycin levels and doses with you during the course of therapy. Additional recommendations will appear in follow up notes. If you have any questions, please contact the pharmacy at extension [phone]. Age: 78 Years Allergies: Allergies (1) Active Severity Reaction No Known Medication Allergies None Documented Weight: Last Documented Weight and Type of Scale Used Last Documented Weight Weight Measured: 58.3 kg (05/07/24 05:52:00) Type of Scale Used Weight Measured Type of Scale: Bed Scale (digital) (05/06/24 16:47:00) Height: Last Documented Height/Length Last Documented Height/Length Height/Length Measured: 172 cm (05/06/24 17:19:00) CrCl: 54.78mL/min SCr: 1mg/dL Labs: WBC: 5.4 E9/L (05/07/24 05:50:00) RBC: 3.3 E12/L Low (05/07/24 05:50:00) HGB: 10.2 gm/dL Low (05/07/24 05:50:00) Hct: 30.3 % Low (05/07/24 05:50:00) MCV: 92.6 fL (05/07/24 05:50:00) MCH: 31.3 pg (05/07/24 05:50:00) MCHC: 33.8 gm/dL (05/07/24 05:50:00) RDW: 15.6 % High (05/07/24 05:50:00) Platelet: 220 E9/L (05/07/24 05:50:00) MPV: 8.2 fL (05/07/24 05:50:00) Neutro Auto: 80.8 % High (05/07/24 05:50:00) Lymph Auto: 16.6 % (05/07/24 05:50:00) Will Auto: 2.5 % Low (05/07/24 05:50:00) Eos Auto: 0 % (05/07/24 05:50:00) Basophil Auto: 0.1 % (05/07/24 05:50:00) Neutro Absolute: 4.4 E9/L (05/07/24 05:50:00) Lymph Absolute: 0.9 E9/L Low (05/07/24 05:50:00) Will Absolute: 0.1 E9/L Low (05/07/24 05:50:00) Eos Absolute: 0 E9/L (05/07/24 05:50:00) Basophil Absolute: 0 E9/L (05/07/24 05:50:00) PT: 37 second(s) High (05/07/24 07:58:00) INR: 3.26 (05/07/24 07:58:00) PTT: 42.1 second(s) High (05/07/24 07:58:00) Glucose Lvl: 137 mg/dL (05/07/24 05:50:00) BUN: 30 mg/dL High (05/07/24 05:50:00) Creatinine: 1 mg/dL (05/07/24 05:50:00) eGFR: 77 mL/min/1.73 m2 (05/07/24 05:50:00) BUN/Creat Ratio: 30 High (05/07/24 05:50:00) Sodium Lvl: 138 mmol/L (05/07/24 05:50:00) Potassium Lvl: 4 mmol/L (05/07/24 05:50:00) Chloride: 106 mmol/L (05/07/24 05:50:00) CO2: 26 mmol/L (05/07/24 05:50:00) AGAP: 10 mEq/L (05/07/24 05:50:00) Calcium Lvl: 8.1 mg/dL Low (05/07/24 05:50:00) CRP: 12.3 mg/dL High (05/07/24 05:50:00) UA Spec Desc: Gill (05/07/24 10:54:00) UA Color: Yellow (05/07/24 10:54:00) UA Clarity: Clear (05/07/24 10:54:00) UA Spec Grav: 1.039 (05/07/24 10:54:00) UA pH: 5.5 (05/07/24 10:54:00) UA Protein: 1+ Abnormal (05/07/24 10:54:00) UA Glucose: Negat (05/07/24 10:54:00) UA Ketones: Negat (05/07/24 10:54:00) UA Bili: Negat (05/07/24 10:54:00) UA Blood: Negat (05/07/24 10:54:00) UA Nitrite: Negat (05/07/24 10:54:00) UA Urobilinogen: Negat (05/07/24 10:54:00) UA Leuk Est: Negat (05/07/24 10:54:00) UA RBC: 4-20 Abnormal (05/07/24 03:12:00) UA WBC: 0-5 (05/07/24 10:54:00) UA Gran Cast: 11-20 Abnormal (05/07/24 03:12:00) UA Amorph Ashley: Present Abnormal (05/07/24 03:12:00) UA Mucous: Trace (05/07/24 10:54:00) Occult Bld Stl: Positive1 Abnormal (05/07/24 12:49:00) Specimen Source: Nasal (05/06/24 16:13:00) COVID-19 ([facility]): Not Detected (05/06/24 16:13:00)[facility] 05-07[facility] NoteEchocardiology Procedure Exam Date/Time Accession # Ordering Echo Transthoracic 05/07/2024 11:58 EST [id number] CARLISLE AGACNP-BC, Elizabeth Complete CPT code [id number] Reason for Exam (Echo Transthoracic Complete) [place] [address] Adult Echocardiogram Report Name: BENNIE DENNIS Study Date: 05/07/2024 11:11 AM BP: 111/57 mmHg Patient Location: [address] Bed(s) [facility] HR: 83 : 1945 Gender: Male Height: 67.5 in Age: 78 yrs Ethnicity: T Weight: 128 lb Reason For Study: Congestive Heart Failure BSA: 1.7 m2 History: CAD, AAICD, PAF, HTN, CVA Ordering Physician: Tanisha Performed By: Jovana Mckay, [facility] Interpretation Summary Akinetic mid to distal anterseptum, mid to distal anterior wall, apex and distal inferior wall. Overall LVEF ~ 20-25% Severe LV systolic function dysfunction. No significant valve stenosis or regurgitation. No pericardial effusion. Procedure A complete two-dimensional transthoracic echocardiogram was performed (2D, M- mode, spectral and color flow Doppler). Left Ventricle The left ventricle is moderately dilated. Ejection Fraction = 20-25%. Akinetic mid to distal anterseptum, mid to distal anterior wall, apex and distal inferior wall. Overall LVEF ~ 20-25%. Echocardiology Report Left Atrium The left atrium is mildly dilated. Right Atrium There is a catheter/pacemaker lead seen in the RA cavity. The right atrium is grossly normal. Right Ventricle The right ventricular systolic function is normal. Aortic Valve The aortic valve is grossly normal. No aortic regurgitation. There is no aortic stenosis. Mitral Valve The mitral valve is grossly normal. There is no mitral regurgitation noted. No mitral valve stenosis. Tricuspid Valve There is mild tricuspid regurgitation. Right ventricular systolic pressure is 35 mmHg. No evidence of tricuspid stenosis. Pulmonic Valve There is no pulmonic valve regurgitation. No evidence of stenosis. Arteries The aortic root is not well visualized. Venous The inferior vena cava is normal in size, and collapses normally with respiration. Effusion There is no pericardial effusion. MMode/2D Measurements & Calculations RVDd: 2.6 cm LVIDd: 4.9 cm FS: 8.0 % Ao root diam: 2.7 cm IVSd: 1.2 cm LVIDs: 4.5 cm EDV(Teich): 115.1 ml LVPWd: 1.2 cm ESV(Teich): 94.8 ml Ao root area: 5.7 cm2 EF(Teich): 17.6 % LA dimension: 3.6 cm LVOT diam: 1.9 cm LVLd ap4: 9.3 cm EDV(MOD-sp2): 138.0 ml SV(MOD-sp4): 30.0 ml LVOT area: 2.8 cm2 EDV(MOD-sp4): 151.0 ml ESV(MOD-sp2): 94.6 ml LVLs ap4: 9.1 cm EF(MOD-sp2): 31.4 % ESV(MOD-sp4): 121.0 ml EF(MOD-sp4): 19.9 % Ao Sinus of Valsalva: 3.2 cm Ao Sinotubular Junction: 2.4 cm IVC Diam: 1.4 cm RVIDd/LVIDd: 0.53 EF (MOD-bp): 26.7 % LA Vol Index: 33.0 ml/m2 Doppler Measurements & Calculations MV E max demar: 56.9 cm/sec Ao V2 max: 129.9 cm/sec LV V1 max P.1 mmHg TR max demar: 270.1 cm/sec MV A max demar: 95.2 cm/sec Ao max P.8 mmHg LV V1 max: 72.2 cm/sec TR max P.2 mmHg Echocardiology Report MV E/A: 0.60 RVSP(TR): 32.2 mmHg RAEGAN(V,D): 1.5 cm2 RAP systole: 3.0 mmHg AV VR: 0.56 FINAL REPORT Dictated: 05/07/2024 11:11 am Cleveland Cuadra MD Signed (Electronic Signature): 05/07/2024 1:19 pm Signed by: Cleveland Cuadra MD Transcribed by: Technologist: [facility]01-20-2025 Note Interdisciplinary Note - PT PT Evaluation done this date. Pt. with 03/11 on AM-PAC this date. He requires mod Ax1 with all functional activities due to weakness. Recommend FWW for home use (will need order for this) and SNF. Will continue to follow.[facility]01-[facility] NoteProgress Note - Pharmacy Pharmacy to Dose Warfarin Indication for warfarin therapy: a fib Target INR: 2.0-3.0 Hospitalist: Elizabeth On warfarin prior to admission? Yes4 mg tabs at home Home regimen: Tuesday: 8 mg Tuesday: 4 mg Tuesday: 8 mg Tuesday: 4 mg : 8 mg Tuesday: 4 mg Tuesday: 8 mg Weekly dose: 44 mg INR values/Dose given: 05/06/24: INR 2.07 - 8 mg 05/07/24: INR 3.26 - dose held Scheduled dose for today: HOLD DOSE Other Comments: 05/07: large increase in INR overnight. will hold dose today 05/06: patient has not had dose today. INR on low end of therapeutic. will give home dose. has been started on zithromax/rocephin Discharge Plan: TBD Please contact pharmacy at ext. [phone] with any questions.[facility]01-19-[facility] NoteHistory and Physical Basic Information Admit Date/Time:05/06/2024 14:19 Chief Complaint per family pt has had genralized weakness for three months, has concern for anemia due to this. pt on thinners. had some blood in his breif this morning per . History of Present Illness 78 yr old male w/ PMH of: CAD, chronic systolic HF w/ AICD, PAF, HTN, HLD, pancreatitis insuff., primary biliary cholangitis, UC, BPH, history of CVA w/ hemiparesis. -Patient presented to the ED 2/2 worsening SOB. -Patient & assisted with medical information. -Patient states he has not felt well for the last several wks and thought he was anemic, complains of feeling cold, profound fatigue, malaise, headache, generalized weakness increased from his baseline, and feeling progressively unwell over the last several days. He noted a scant amt. of blood in his brief and states he is unsure if it was from his penis or hemm., hence his presentation to the ED. Patient denies fever, cough, sputum production, known COVID exposure, chest pain, pressure, palpitations, N/V/D, abdominal pain or change in bowel or bladder habits. Patient was referred to the hospitalist team for further evaluation. Review of Systems Constitutional: + fatigue/malaise, feels unwell Respiratory: + SOB/WOB/BRITTON w/ minimal conversation or activity, not at resp. baseline. Cardiovascular: Negative. Gastrointestinal: Denies abd pain. Passing flatus. Last BM: 05/05 Musculoskeletal: + gen. weakness. Additional ROS info: Except as noted in the above Review of Systems and in the History of Present Illness all other systems have been reviewed and are negative or noncontributory Scoring Mahajan Fall Risk Score: 35 (05/06/24) Physical Exam Vitals & Measurements T: 36.9 ???C(Oral) HR: 92(Monitored) RR: 18 BP: 98/51 SpO2: 92% HT: 172 cm WT: 62.6 kg General: Calm, able to communicate needs, NAD Head: Normocephalic/atraumatic Eyes: Pupils equal, round, Conjunctivae and sclerae normal, HEENT: Mucous membrane moist. Tongue normal Neck: Trachea midline, neck supple, Chest: No chest wall deformity, no chest wall tenderness Lungs: Rhonchi throughout, does not clear w/ cough, Cardio: Normal rate, currently in RSR/Stach, mild non pitting edema in b/l ankles - pt. states thisis his chronic amt. Pulses: Normal capillary refill Abdomen: Soft, non-distended, non-tender, normal BS Musculoskeletal: No deformity or scoliosis noted. Normal ROM for age. Integumentary: Warm, dry, Extremity: No clubbing, Neurologic: Alert, oriented x 4, follows commands, chronic L sided hemiplegia Mental status: Pleasant & cooperative, approp. affect, Lab Results WBC: 6.2 E9/L (05/06/24 11:01:00) RBC: 3.5 E12/L Low (05/06/24 11:01:00) HGB: 11 gm/dL Low (05/06/24 11:01:00) Hct: 32.3 % Low (05/06/24 11:01:00) MCV: 92.5 fL (05/06/24 11:01:00) MCH: 31.6 pg (05/06/24 11:01:00) MCHC: 34.1 gm/dL (05/06/24 11:01:00) RDW: 15.3 % High (05/06/24 11:01:00) Platelet: 218 E9/L (05/06/24 11:01:00) MPV: 8.5 fL (05/06/24 11:01:00) Neutro Auto: 60.1 % (05/06/24::00) Lymph Auto: 32.5 % (05/06/24::00) Will Auto: 6.6 % (05/06/24::) Eos Auto: 0.2 % (05/06/24::) Basophil Auto: 0.6 % (05/06/24::00) Neutro Absolute: 3.7 E9/L (05/06/24::) Lymph Absolute: 2 E9/L (05/06/24::00) Will Absolute: 0.4 E9/L (05/06/24::00) Eos Absolute: 0 E9/L (05/06/24:) Basophil Absolute: 0 E9/L (05/06/24:) PT: 23.3 second(s) High (05/06/24::00) INR: 2.07 (05/06/24::) PTT: 39.3 second(s) High (05/06/24 11::00) Glucose Lvl: 92 mg/dL (05/06/24 11::00) BUN: 39 mg/dL High (05/06/24::00) Creatinine: 1.5 mg/dL High (05/06/24::00) eGFR: 47 mL/min/1.73 m2 Low (05/06/24 11::) BUN/Creat Ratio: 26 High (05/06/24::00) Sodium Lvl: 135 mmol/L (05/06/24 11::00) Potassium Lvl: 3.8 mmol/L (05/06/24::00) Chloride: 100 mmol/L Low (05/06/24::00) CO2: 26 mmol/L (05/06/24::00) AGAP: 13 mEq/L (05/06/24::00) Calcium Lvl: 8.4 mg/dL Low (05/06/24 11::00) Alk Phos: 70 Int._Unit/L (05/06/24::00) ALT: 45 Int._Unit/L (05/06/24 11:01:00) AST: 89 Int._Unit/L High (05/06/24 11:01:00) Total Protein: 6.4 gm/dL (05/06/24 11:01:00) Albumin Lvl: 3.2 gm/dL Low (05/06/24 11:01:00) Globulin: 3.2 gm/dL (05/06/24 11:01:00) A/G Ratio: 1 Low (05/06/24 11:01:00) Bili Total: 1 mg/dL (05/06/24 11:01:00) Bili Direct: 0.2 mg/dL (05/06/24::00) Bili Indirect: 0.8 mg/dL (05/06/24 11:01:00) Lipase Lvl: 74 unit/L High (05/06/24 11:01:00) Lactic Acid Lvl: 1.6 mmol/L (05/06/24 11::00) TSH: 3.01 mcIU/mL (05/06/24 11::00) Troponin HS: 31.1 pg/mL (05/06/24 12:22:00) BNP: 93 pg/mL High (05/06/24 11::00) Procalcitonin: 0.22 ng/mL (05/06/24 11:01:00) pH Arterial: 7.492 High (05/06/24 11:08:00) P CO2 Arterial: 32.9 mmHg Low (05/06/24 11:08:00) P O2 Arterial: 41.6 mmHg Critical (05/06/24 11:08:00) Base Ex (more content not included)...[facility]:Result Comment: Electronically Signed By: Elizabeth METZGER\.br\Date and Time Signed: 05/06/24 14:54 EST\.br\Electronically Co-Signed By: Elizabeth METZGER\.br\Date and Time Co-Signed: 05/06/24 16:05 EST\.br\Electronically Co-Signed By: Elizabeth METZGER\.br\Date and Time Co-Signed: 05/06/24 16:07 EST\.br\Electronically Co-Signed By: Pan Gar DO.br\Date and Time Co-Signed: 05/06/24 18:25 [id number] Note Progress Note - Pharmacy Pharmacy to Dose Warfarin Indication for warfarin therapy: a fib Target INR: 2.0-3.0 Hospitalist: Elizabeth On warfarin prior to admission? Yes4 mg tabs at home Home regimen: Tuesday: 8 mg Tuesday: 4 mg Tuesday: 8 mg Tuesday: 4 mg : 8 mg Tuesday: 4 mg Tuesday: 8 mg Weekly dose: 44 mg INR values/Dose given: 05/06/24: INR 2.07 Scheduled dose for today: 8 mg Other Comments: 05/06: patient has not had dose today. INR on low end of therapeutic. will give home dose. has been started on zithromax/rocephin Discharge Plan: TBD Please contact pharmacy at [phone]. [phone] with any questions.[facility]12-12-[facility] Hospital Discharge instructions Patient Education 03/29/2024 15:39:49 Ulcerative Colitis, Adult Ulcerative Colitis, Adult Ulcerative colitis is long-term (chronic) inflammation of the large intestine (colon) and rectum. Sores (ulcers) may also form in these areas. Ulcerative colitis, along with a closely related condition called Crohn's disease, is often referred to as inflammatory bowel disease. What are the causes? This condition may be caused by increased activity of the immune system in the intestines. The immune system is the system that protects the body against harmful bacteria, viruses, fungi, and other things that can make you sick. The cause of the increased activity of the immune system is not known. What increases the risk? The following factors may make you more likely to develop this condition: Being under 30 years old. Having a family history of ulcerative colitis. What are the signs or symptoms? Symptoms vary depending on how severe the condition is. Common symptoms include: Rectal bleeding. Diarrhea, often with blood or pus in the stool. Other symptoms can include: Pain or cramping in the abdomen. Fever. Tiredness (fatigue). Nausea, loss of appetite, or weight loss. Rectal pain. A strong and sudden need to have a bowel movement (bowel urgency). Anemia. Yellowing of the skin (jaundice) from liver dysfunction or skin rashes. Symptoms can range from mild to severe. They may come and go. How is this diagnosed? This condition may be diagnosed based on: Your symptoms and medical history. A physical exam. Tests, including: ?Blood tests and stool tests. ?X-rays. ?CT scan. ?MRI. ?Colonoscopy. For this test, a flexible tube is inserted into your anus, and your colon is examined. ?Biopsy. In this test, a tissue sample is taken from your colon and examined under a microscope. How is this treated? There is no cure for this condition, but it can be managed. Treatment depends on the severity of the disease. Treatment for this condition may include medicines to: Decrease swelling and inflammation. Control your immune system. Treat infections. Relieve pain. Control diarrhea. Severe flare-ups may need to be treated at a hospital. Treatment in a hospital may involve: Resting the bowel. This involves not eating or drinking for a period of time. Getting medicines through an IV. Getting fluids and nutrition through: ?An IV. ?A tube that is passed through the nose and into the stomach (nasogastric or NG tube). Surgery to remove the affected part of the colon. This may be done if other treatments are not helping. This condition increases the risk of colon cancer. Adults with this condition will need to be checked for colon cancer throughout life. Follow these instructions at home: Medicines and vitamins Take [id number] and prescription medicines only as told by your health care provider. Do not take aspirin. If you were prescribed an antibiotic medicine, take it as told by your health care provider. Do notstop taking the antibiotic even if you start to feel better. Ask your health care provider if you should take any vitamins or supplements. You may need to take: ?Calcium and vitamin D for bone health. ?Iron to help treat anemia. Lifestyle Exercise regularly. Work with your health care provider to manage your condition and educate yourself about your condition. Do not use any products that contain nicotine or tobacco. These products include cigarettes, chewing tobacco, and vaping devices, such as e-cigarettes. If you need help quitting, ask your health careprovider. If you drink alcohol: ?Limit how much you have to: ?0 1 drink a day for women who are not . ? 0 2 drinks a day for men. ?Know how much alcohol is in a drink. In the [place] one drink equals one 12 oz bottle of beer (355 mL), one 5 oz glass of wine (148 mL), or one 1 oz glass of hard liquor (44 mL). Eating and drinking Keep a food diary. This may help you identify and avoid any foods that trigger your symptoms. Drink enough fluid to keep your urine pale yellow. Follow a well-balanced diet as told by your health care provider. This may include: ?Avoiding carbonated drinks. ?Avoiding popcorn, vegetable skins, nuts, and other high-fiber foods. ?Avoiding high-fat foods. ?Eating smaller meals, but more often. ?Limiting sugary drinks. ?Limiting caffeine. Follow food safety recommendations as told by your health care provider. This may include making sure you: ?Avoid eating raw or undercooked meat, fish, or eggs. ?Do not eat or drink spoiled or foods and drinks. General instructions Wash your hands often with soap and water for at least 20 seconds. If soap and water are not available, use hand rescue worker. Stay up to date on your vaccinations, including a yearly (annual) flu shot. Ask your health care provider which vaccines you should get. Have cancer screening tests as told by your health care provider. Ulcerative colitis may place you at increased risk for colon cancer. Keep all follow-up visits. This is important. Where to find more information You can find some helpful and educational information about ulcerative colitis at the National [place] [employer] and Digestive and Kidney Diseases online here: www.niddk.nih.gov Contact a health care provider if: Your symptoms do not improve or they get worse with treatment. You continue to lose weight. You have constant cramps or loose stools. You develop a new skin rash, skin sores, or eye problems. You have a fever or chills. Get help right away if: You have bloody diarrhea. You have severe bleeding from the rectum. You feel that your heart is racing. You have severe pain in your abdomen. Your abdomen swells (abdominal distension). Your abdomen is tender to the touch. You vomit. Summary Ulcerative colitis is long-lasting (chronic) inflammation of the large intestine (colon) and rectum. Sores (ulcers) may also form in these areas. Follow instructions from your health care provider about medicines, lifestyle changes, and eating and drinking. Contact your health care provider if symptoms do not improve or they get worse with treatment. Get help right away if you have severe abdominal pain, abdominal swelling, or severe bleeding from the rectum. Keep all follow-up visits. This is important. This information is not intended to replace advice given to you by your health care provider. Make sure you discuss any questions you have with your health care provider. Document Revised: 12/09/2020 Document Reviewed: 12/09/2020 [employer] Patient Education 2023 [employer] Follow Up Care 03/29/2024 14:26:24 With:Eloisa Hassan Address: [address] [place] [address], [facility] [address] [place] [address]- [phone] Business (1) When:04/01/2024 15:39:28 Comments:Follow-up with Dr. Hassan on Tuesday as previously scheduled. Return to the ED with any new or worsening symptoms. With:Pete Gar Address:Unknown When:Within 3 Day(s) [facility] 12-12-2024 NoteED Patient Education Note Gastroenterology Ulcerative Colitis, Adult Ulcerative colitis is long-term (chronic) inflammation of the large intestine (colon) and rectum. Sores (ulcers) may also form in these areas. Ulcerative colitis, along with a closely related condition called Crohn's disease, is often referred to as inflammatory bowel disease. What are the causes? This condition may be caused by increased activity of the immune system in the intestines. The immune system is the system that protects the body against harmful bacteria, viruses, fungi, and other things that can make you sick. The cause of the increased activity of the immune system is not known. What increases the risk? The following factors may make you more likely to develop this condition: ??? Being under 30 years old. ??? Having a family history of ulcerative colitis. What are the signs or symptoms? Symptoms vary depending on how severe the condition is. Common symptoms include: ??? Rectal bleeding. ??? Diarrhea, often with blood or pus in the stool. Other symptoms can include: ??? Pain or cramping in the abdomen. ??? Fever. ??? Tiredness (fatigue). ??? Nausea, loss of appetite, or weight loss. ??? Rectal pain. ??? A strong and sudden need to have a bowel movement (bowel urgency). ??? Anemia. ??? Yellowing of the skin (jaundice) from liver dysfunction or skin rashes. Symptoms can range from mild to severe. They may come and go. How is this diagnosed? This condition may be diagnosed based on: ??? Your symptoms and medical history. ??? A physical exam. ??? Tests, including: ? Blood tests and stool tests. ? X-rays. ? CT scan. ? MRI. ? Colonoscopy. For this test, a flexible tube is inserted into your anus, and your colon is examined. ? Biopsy. In this test, a tissue sample is taken from your colon and examined under a microscope. How is this treated? There is no cure for this condition, but it can be managed. Treatment depends on the severity of the disease. Treatment for this condition may include medicines to: ??? Decrease swelling and inflammation. ??? Control your immune system. ??? Treat infections. ??? Relieve pain. ??? Control diarrhea. Severe flare-ups may need to be treated at a hospital. Treatment in a hospital may involve: ??? Resting the bowel. This involves not eating or drinking for a period of time. ??? Getting medicines through an IV. ??? Getting fluids and nutrition through: ? An IV. ? A tube that is passed through the nose and into the stomach (nasogastric or NG tube). ??? Surgery to remove the affected part of the colon. This may be done if other treatments are not helping. This condition increases the risk of colon cancer. Adults with this condition will need to be checked for colon cancer throughout life. Follow these instructions at home: Medicines and vitamins ??? Take qohx-jtv-skapgoi and prescription medicines only as told by your health care provider. Do not take aspirin. ??? If you were prescribed an antibiotic medicine, take it as told by your health care provider. Donot stop taking the antibiotic even if you start to feel better. ??? Ask your health care provider if you should take any vitamins or supplements. You may need to take: ? Calcium and vitamin D for bone health. ? Iron to help treat anemia. Lifestyle ??? Exercise regularly. ??? Work with your health care provider to manage your condition and educate yourself about your condition. ??? Do not use any products that contain nicotine or tobacco. These products include cigarettes, chewing tobacco, and vaping devices, such as e-cigarettes. If you need help quitting, ask your health care provider. ??? If you drink alcohol: ? Limit how much you have to: ? 0?1 drink a day for women who are not . ? 0?2 drinks a day for men. ? Know how much alcohol is in a drink. In the [place] one drink equals one 12 oz bottle of beer (355 mL), one 5 oz glass of wine (148 mL), or one 1? oz glass of hard liquor (44 mL). Eating and drinking ??? Keep a food diary. This may help you identify and avoid any foods that trigger your symptoms. ??? Drink enough fluid to keep your urine pale yellow. ??? Follow a well-balanced diet as told by your health care provider. This may include: ? Avoiding carbonated drinks. ? Avoiding popcorn, vegetable skins, nuts, and other high-fiber foods. ? Avoiding high-fat foods. ? Eating smaller meals, but more often. ? Limiting sugary drinks. ? Limiting caffeine. ??? Follow food safety recommendations as told by your health care provider. This may include making sure you: ? Avoid eating raw or undercooked meat, fish, or eggs. ? Do not eat or drink spoiled or foods and drinks. General instructions ??? Wash your hands often with soap and water for at least 20 seconds. If soap and water are not available, use hand rescue worker. ??? Stay up to date on yo (more content not included)...[facility]12-12-2024 Evaluation + Plan noteExtracted from: Title:ED Note Author:Mile KAY, Linda Hein te:03/29/24 Chronic ulcerative colitis ( K51.90: Ulcerative colitis, unspecified, without complications) Decreased oral intake (R63.8: Other symptoms and signs concerning food and fluid intake) Future Appointments Appointment Date:04/02/2024 01:30:00 PM Scheduled Provider:Eloisa Hassan MD Location:[facility] [place] Dig[facility] Health Appointment Type:[facility] Follow Up Appointment Date:08/30/2024 10:00:00 AM Scheduled Provider:Pete Gar MD Location:[facility] Appointment Type: Open Appointment Date:11/21/2024 11:00:00 AM Scheduled Provider: Location:[facility] Appointment Type: Medicare Wellness Subsequent Future Scheduled Tests Laboratory* Pancreatic Elastase, Fecal 03/21/24 * Calprotectin, Fecal 03/21/24 * Antimitochondrial Antibody, Quantitative 03/21/24 * Smooth Muscle Antibody Screen 03/21/24 * MASSIMO w/Reflex if POS 03/21/24 * IgA, Quant. 03/21/24 * IgG, Quant. 03/21/24 * O & P Exam, Routine 03/21/24 * t-Transglutaminase IgA 03/21/24 * TIBC Calculated 03/21/24 * Celiac Disease Comprehensive 03/21/24 * Clostridium Difficile PCR 03/21/24 * Hepatitis A Virus (HAV) Antibody, Total 03/21/24 * Acute Hepatitis A B C Panel 03/21/24 * Enteric Panel by PCR 03/21/24 * Vitamin D 25 Hydroxy 03/21/24 * Ferritin 03/21/24 [facility] 12-11-2024 NoteProgress Note-Physician Patient: BENNIE DENNIS Age: 78 years Sex: Male : 1945 Associated Diagnoses: None Author: Sarwat Puga Jr., DO Postoperative Information Postoperative disposition: Postoperative disposition: Home. Optimetrix number: Optimetrix number [id number]. Anesthetic utilized: General. Physical Examination Vital Signs 03/28/2024 10:20 EST Heart Rate Monitored 70 bpm Respiratory Rate Monitored 14 br/min Systolic Blood Pressure 109 mmHg Diastolic Blood Pressure 59 mmHg Blood Pressure Location Left arm Mean Arterial Pressure, Cuff 76 mmHg SpO2 97 % 03/28/2024 10:05 EST Heart Rate Monitored 90 bpm Respiratory Rate Monitored 8 br/min Systolic Blood Pressure 91 mmHg Diastolic Blood Pressure 55 mmHg LOW Blood Pressure Location Left arm Mean Arterial Pressure, Cuff 67 mmHg SpO2 96 % 03/28/2024 10:00 EST Heart Rate Monitored 92 bpm Respiratory Rate Monitored 19 br/min Systolic Blood Pressure 77 mmHg LOW Diastolic Blood Pressure 48 mmHg LOW Blood Pressure Location Left arm Mean Arterial Pressure, Cuff 58 mmHg SpO2 98 % 03/28/2024 9:55 EST Heart Rate Monitored 84 bpm Respiratory Rate Monitored 21 br/min Systolic Blood Pressure 73 mmHg LOW Diastolic Blood Pressure 44 mmHg LOW Blood Pressure Location Left arm Mean Arterial Pressure, Cuff 54 mmHg SpO2 96 % 03/28/2024 9:52 EST Temperature Temporal Artery 36.5 DegC Heart Rate Monitored 83 bpm Respiratory Rate Monitored 22 br/min Systolic Blood Pressure 79 mmHg LOW Diastolic Blood Pressure 47 mmHg LOW Blood Pressure Location Left arm Mean Arterial Pressure, Cuff 58 mmHg SpO2 98 % Pain Assessment: Controlled. General: Awake, Alert, Appropriate. Respiratory: Adequate air exchange, Non-labored. Cardiovascular: Stable, Normal peripheral perfusion. Neurological: Neurologic exam at baseline. No changes.. Assessment Anesthetic outcome No anesthetic complications noted. No nausea/vomiting. Review / Management Condition: Stable. Plan Transfer/Discharge: Transfer/Discharge Discharge when meets criteria ( From PACU to Ambulatory Surgery Unit, and To home ).[facility]:Result Comment: Electronically Signed By: Sarwat Puga Jr., DO.dana\Date and Time Signed: 03/28/24 11:38 [id number] NotePatient Education - Text Colonoscopy Care After Surgery Please read the instructions outlined below and refer to this sheet in the next few weeks. These discharge instructions provide you with general information on caring for yourself after you leave thespital. Your doctor may also give you specific instructions. While your treatment has been planned according to the most current medical practices available, unavoidable complications occasionally occur. If you have any problems or questions after discharge, please call your doctor. ACTIVITY You may resume your regular activity, but move at a slower pace for the next 24 hours. Take frequent rest periods for the next 24 hours. Walking will help get rid of the air and reduce the bloated feeling in your abdomen (belly). No driving for 24 hours (because of the anesthesia (medicine) used during the test). You may shower. Do not sign any important legal documents or operate any machinery for 24 hours (because of the anesthesia used during the test). NUTRITION Drink plenty of fluids. You may resume your normal diet as instructed by your doctor. Begin with a light meal and progress to your normal diet. Heavy or fried foods are harder to digestand may make you feel nauseated (sick to your stomach). Avoid alcoholic beverages for 24 hours or as instructed. MEDICATIONS You may resume your normal medications unless your doctor tells you otherwise. WHAT YOU CAN EXPECT TODAY Some feelings of bloating in the abdomen. Passage of more gas than usual. Spotting of blood in your stool or on the toilet paper. FOLLOW-UP Your doctor will discuss the results of your test with you. SEEK IMMEDIATE MEDICAL ATTENTION IF: There is more than a spotting of blood in your stool. There is abdominal distention (your abdomen is swollen). There is vomiting. You have a temperature over 101.5 F. There is abdominal pain or discomfort that is severe or gets worse throughout the day. Endoscopy Care After Procedure Please read the instructions outlined below and refer to this sheet in the next few weeks. These discharge instructions provide you with general information on caring [facility] Your doctor may also give you specific instructions. While your treatment has been planned according to the most current medical practices available, unavoidable complications occasionally occur. If you have any problems or questions after discharge, please call your doctor. ACTIVITY ??? You may resume your regular activity but move at a slower pace for the next 24 hours. ??? Take frequent rest periods for the next 24 hours. ??? Walking will help expel (get rid of) the air and reduce the bloated feeling in your abdomen. ??? No driving for 24 hours (because of the anesthesia (medicine) used during the test). ??? You may shower. ??? Do not sign any important legal documents or operate any machinery for 24 hours (because of theanesthesia used during the test). NUTRITION ??? Drink plenty of fluids. ??? You may resume your normal diet. ??? Begin with a light meal and progress to your normal diet. ??? Avoid alcoholic beverages for 24 hours or as instructed by your caregiver. MEDICATIONS ??? You may resume your normal medications unless your caregiver tells you otherwise. WHAT YOU CAN EXPECT TODAY ??? You may experience abdominal discomfort such as a feeling of fullness or ???gas??? pains. FOLLOW-UP ??? Your doctor will discuss the results of your test with you. seek immediate medical attention if any of the following occur: ??? Excessive nausea (feeling sick to your stomach) and/or vomiting. ??? Severe abdominal pain and distention (swelling). ??? Trouble swallowing. ??? Temperature over 100 F (37.8??? C). ??? Rectal bleeding or vomiting of blood. Document Released: 11/16/2004 Document Re-Released: 09/26/2006 ExitCare??? Patient Information ???2009 [employer]. Gastroenterology Colitis Colitis is a condition in which the colon is inflamed. It can cause diarrhea, blood in the stool, and abdominal pain. Colitis can last a short time (be acute), or it may last a long time (become chronic). What are the causes? This condition may be caused by: ??? Infections from viruses or bacteria. ??? A reaction to medicine. ??? Certain autoimmune diseases, such as Crohn's disease or ulcerative colitis. ??? Radiation treatment. ??? Decreased blood flow to the bowel (ischemia). What are the signs or symptoms? Symptoms of this condition include: ??? Diarrhea, blood in the stool, or black, tarry stool. ??? Pain in the joints or abdominal pain. ??? Fever or fatigue. ??? Vomiting. ??? Weight loss. ??? Bloating. ??? Having fewer bowel movements than usual. ??? A strong and sudden urge to have a bowel movement. ??? Feeling like the bowel is not empty after a bowel movement. How is this diagnosed? This condition (more content not included)...[facility] 03-28-2024 NoteProgress Note-Physician Patient: BENNIE DENNIS Age: 78 years Sex: Male : 1945 Associated Diagnoses: None Author: Sarwat Puga Jr., DO Preoperative Information Anesthesia history: Patient history: No prior anesthetic problems. Informed consent: Signed by patient. Re-evaluation prior to induction: Initial evaluation reviewed: No significant change. Review of Systems Respiratory: Negative except as documented in history of present illness. Cardiovascular: Negative except as documented in history of present illness. Health Status Allergies: Allergic Reactions (Selected) No Known Medication Allergies, Allergies (1) Active Severity Reaction No Known Medication Allergies None Documented Current medications: (Selected) Inpatient Medications Ordered Fleet Enema: 133 mL, Enema, Rectal, Once, Stop date 03/28/24 9:00:00 EST, Routine, Start date 03/28/24 9:00:00 EST Lactated Ringers IV Alisha 1000 mL 1,000 mL: 1,000 mL, IV, 100 mL/hr, Routine, Start date 03/28/24 8:18:00 EST, 10 hour(s), Total volume (mL): 1,000, 59.4 kg, 1.69, m2 Sodium Chloride 0.9% IV Alisha 1000 mL 1,000 mL: 1,000 mL, IV, 20 mL/hr, Routine, Start date 03/28/24 6:43:00 EST, 50 hour(s), Total volume (mL): 1,000, 63 kg, 1.71, m2 Prescriptions Prescribed atorvastatin 80 mg Tab: See Instructions, TAKE 1 TABLET DAILY, # 90 tab(s), Refills(s) 3, Pharmacy:[facility], 167.8, cm, 07/18/23 13:34:00 EDT, Height/Length Dosing, 66.2, kg, 07/18/23 13:34:00 EDT, Weight Dosing Documented Medications Documented Entresto 24 mg-26 mg oral tablet: 1 tab(s), Oral, BID, Refill(s) 0 ICaps AREDS 2: See Instructions, Refill(s) 0, take 1 orally twice a da, Prophylaxis Misc Prescription: Mini fish oil 1340mg one a day One-A-Day Men's Health Formula: 1 tab(s), Oral, Daily, Refill(s) 0, Prophylaxis Vitamin D3 1000 intl units (25 mcg) Tab: 25 mcg = 1 tab(s), Oral, Daily, Refills(s) 0, Prophylaxis aspirin 81 mg Oral EC Tab: 81 mg = 1 tab(s), Oral, Daily, Refills(s) 0, Prophylaxis carvedilol 12.5 mg Tab: 12.5 mg = 1 tab(s), Oral, BID, Refills(s) 0, High blood pressure mesalamine 1.2 g oral enteric coated tablet: 2.4 gm, 2 tab(s), Refill(s) 0 spironolactone 25 mg Tab: See Instructions, 1/2 tablet orally daily, Refills(s) 0, diuretic/water pill warfarin 4 mg Tab: See Instructions, Take 4 mg orally on mondays, wednesdays and fridays and 8mg the other 4 days of the week, Refills(s) 0, Home Medications (11) Active aspirin 81 mg Oral EC Tab 81 mg = 1 tab(s), Oral, Daily atorvastatin 80 mg Tab See Instructions carvedilol 12.5 mg Tab 12.5 mg = 1 tab(s), Oral, BID Entresto 24 mg-26 mg oral tablet 1 tab(s), Oral, BID ICaps AREDS 2 See Instructions mesalamine 1.2 g oral enteric coated tablet 2.4 gm = 2 tab(s) Misc Prescription 0 One-A-Day Men's Health Formula 1 tab(s), Oral, Daily spironolactone 25 mg Tab See Instructions Vitamin D3 1000 intl units (25 mcg) Tab 25 mcg = 1 tab(s), Oral, Daily warfarin 4 mg Tab See Instructions , Medications (3) Active Scheduled: (1) sodium biphosphate-sodium phosphate 19 g-7 g Rectal Enema 135 mL [F] 133 mL, Rectal, Once Continuous: (2) Lactated Ringers 1,000 mL 1,000 mL, IV, 100 mL/hr Sodium Chloride 0.9% 1,000 mL 1,000 mL, IV, 20 mL/hr PRN: (0) Problem list: All Problems 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 ASCVD (arteriosclerotic cardiovascular disease) / SNOMED CT 816241860 / Confirmed Blood in stool / SNOMED CT 1971084529 / Confirmed BMI 22.0-22.9, adult / SNOMED CT 4427290134 / Confirmed Chronic anticoagulation / SNOMED CT 0351875187 / Confirmed DDD (degenerative disc disease), lumbar / SNOMED CT 48069470 / Confirmed Elevated liver enzymes / SNOMED CT 9897998792 / Confirmed Esophageal dysphagia / SNOMED CT 91554262 / Confirmed Hemiparesis / SNOMED CT 64810963 / Confirmed Hx of arterial ischemic stroke / SNOMED CT 9095680837 / Confirmed Hx of heart artery stent / SNOMED CT 2137740687 / Confirmed Loose stools / SNOMED CT 8936660396 / Confirmed Nonsmoker / SNOMED CT 86280892 / Confirmed Paroxysmal A-fib / SNOMED CT 752161549 / Confirmed Prostate disorder / SNOMED CT 84119829 / Confirmed Ulcerative colitis / SNOMED CT 070822496 / Confirmed Canceled: CVA (cerebral vascular accident) / SNOMED CT 258922180 Canceled: Dehydration / SNOMED CT 64732964 Canceled: Hypotension / SNOMED CT 339447264 Canceled: NH (myocardial infarction) / SNOMED CT 55270590 Histories Past Medical History: No active or resolved past medical history items have been selected or recorded. Procedure history: Colonoscopy ([id number]). Comments: 02/28/2023 10:40 Marcela Ignacio LPN 2013 and 2020 Cardiac catheter w/ stent ([id number]). Comments: 02/28/2023 10:40 Marcela Ignacio LPN July 2012 Carotid endarterectomy w/ stent ([id number]). Comments: 02/28/2023 10:41 Marcela Ignacio LPN (more content not included)... [facility]Result Comment: Electronically Signed By: Sarwat Puga Jr., DO\.br\Date and Time Signed: 03/28/24 08:19 EST 03-01-2024 NotePatient Education Nutrition BMI for Adults Body mass index (BMI) is a number found using a person's weight and height. BMI can help tell how much of a person's weight is made up of fat. BMI does not measure body fat directly. It is used instead of tests that directly measure body fat, which can be difficult and expensive. What are BMI measurements used for? BMI is useful to: ??? Find out if your weight puts you at higher risk for medical problems. ??? Help recommend changes, such as in diet and exercise. This can help you reach a healthy weight.BMI screening can be done again to see if these changes are working. How is BMI calculated? Your height and weight are measured. The BMI is found from those numbers. This can be done with [place] or metric measurements. Note that charts and online BMI calculators are available to help you findyour BMI quickly and easily without doing these calculations. To calculate your BMI in [place] measurements: 1. Measure your weight in pounds (lb). 2. Multiply the number of pounds by 703. ??? So, for an adult who weighs 150 lb, multiply that number by 703: 150 x 703, which equals 105,450. 3. Measure your height in inches. Then multiply that number by itself to get a measurement called inches squared. ??? So, for an adult who is 70 inches tall, the inches squared measurement is 70 inches x 70 inches, which equals 4,900 inches squared. 4. Divide the total from step 2 (number of lb x 703) by the total from step 3 (inches squared): 105,450 ? 4,900 = 21.5. This is your BMI. To calculate your BMI in metric measurements: 1. Measure your weight in kilograms (kg). ??? For this example, the weight is 70 kg. 2. Measure your height in meters (m). Then multiply that number by itself to get a measurement called meters squared. ??? So, for an adult who is 1.75 m tall, the meters squared measurement is 1.75 m x 1.75 m, whichequals 3.1 meters squared. 3. Divide the number of kilograms (your weight) by the meters squared number. In this example: 70 ?3.1 = 22.6. This is your BMI. What do the results mean? BMI charts are used to see if you are underweight, normal weight, overweight, or obese. The following guidelines will be used: ??? Underweight: BMI less than 18.5. ??? Normal weight: BMI between 18.5 and 24.9. ??? Overweight: BMI between 25 and 29.9. ??? Obese: BMI of 30 or above. BMI is a tool and cannot diagnose a condition. Talk with your health care provider about what your BMI means for you. Keep these notes in mind: ??? Weight includes fat and muscle. Someone with a muscular build, such as an athlete, may have a BMI that is higher than 24.9. In cases like these, BMI is not a correct measure of body fat. ??? If you have a BMI of 25 or higher, your provider may need to do more testing to find out if excess body fat is the cause. ??? BMI is measured the same way for males and females. Females usually have more body fat than males of the same height and weight. Where to find more information For more information about BMI, including tools to quickly find your BMI, go to: ??? Centers for Disease Control and Prevention: cdc.gov ??? [place] Heart Association: heart.org ??? National Heart, Lung, and Blood [place]: nhlbi.nih.gov This information is not intended to replace advice given to you by your health care provider. Make sure you discuss any questions you have with your health care provider. Document Revised: 12/23/2022 Document Reviewed: 12/16/2022 [employer] Patient Education ? 2023 [facility] NoteNurse Consultation Note Reason for Visit Pt presents today for lab draw. Medications aspirin 81 mg Oral EC Tab, 81 mg= 1 tab(s), Oral, Daily atorvastatin 80 mg Tab, See Instructions balsalazide 750 mg oral capsule, 2250 mg= 3 cap(s), Oral, TID carvedilol 12.5 mg Tab, 12.5 mg= 1 tab(s), Oral, BID Entresto 24 mg-26 mg oral tablet, 1 tab(s), Oral, BID ICaps AREDS 2, See Instructions Misc Prescription, 0 One-A-Day Men's Health Formula, 1 tab(s), Oral, Daily spironolactone 25 mg Tab, See Instructions Vitamin D3 1000 intl units (25 mcg) Tab, 25 mcg= 1 tab(s), Oral, Daily warfarin 4 mg Tab, See Instructions Allergies No Known Medication Allergies Immunizations Vaccine Date Status influenza virus vaccine, inactivated 02/28/2023 Given pneumococcal 23-valent vaccine 04/12/2021 Recorded influenza virus vaccine, inactivated 04/12/2021 Recorded SARS-CoV-2 (COVID-19) mRNA BNT-162b2 vax 08/07/2020 Recorded SARS-CoV-2 (COVID-19) mRNA BNT-162b2 vax 07/18/2020 Recorded influenza virus vaccine, inactivated 02/20/2019 Recorded pneumococcal 13-valent vaccine 02/05/2019 [facility]* Encounter Date Diagnosis Assessment Notes Treatment Notes Treatment Clinical Notes May, Ulcerative colitis (ICD-10 - K51.90) Continue Balsalazide without change Colonoscopy [facility] Other 11-02-2021 Evaluation note* Encounter Date Diagnosis Assessment Notes Treatment Notes Treatment Clinical Notes Feb, Fecal incontinence (ICD-10 - R15.9) Feb, Sigmoid diverticulosis (ICD-10 - K57.30) Feb, Constipation, unspecified constipation type (ICD-10 - K59.00) Feb, Bleeding (ICD-10 - R58) PATIENT STATES HE DOES STILL NOTICE SOME OF THIS. Feb, Ulcerative colitis (ICD-10 - K51.90) REPEAT COLON IN A FEW MONTHS WILL START MEDICATION. [facility] Other Evaluation + Plan note Future Appointments Appointment Date:08/29/2023 08:00:00 AM Scheduled Provider:Pete Gar MD Location[facility] Future Appointments Appointment Date:02/27/2024 05:45:00 PM Scheduled Provider:Pete Gar MD Location:[facility] Appointment Type: Open Appointment Date:11/21/2024 11:00:00 AM Scheduled Provider: Location:[facility] Appointment Type:FM Medicare Wellness Subsequent [facility] Evaluation + Plan note Future Appointments Appointment Date:03/28/2024 09:00:00 AM Scheduled Provider: Location:[facility] Services Appointment Type:Surgery FT Appointment Date:08/30/2024 10:00:00 AM Scheduled Provider:Pete Gar MD Location:[facility] Appointment Type: Open Appointment Date:11/21/2024 11:00:00 AM Scheduled Provider: Location:[facility] Appointment Type:FM Medicare Wellness Subsequent Future Scheduled Tests Laboratory* Pancreatic Elastase, Fecal 03/21/24 * Calprotectin, Fecal 03/21/24 * Antimitochondrial Antibody, Quantitative 03/21/24 * Smooth Muscle Antibody Screen 03/21/24 * MASSIMO w/Reflex if POS 03/21/24 * IgA, Quant. 03/21/24 * IgG, Quant. 03/21/24 * O & P Exam, Routine 03/21/24 * t-Transglutaminase IgA 03/21/24 * TIBC Calculated 03/21/24 * Celiac Disease Comprehensive 03/21/24 * Clostridium Difficile PCR 03/21/24 * Hepatitis A Virus (HAV) Antibody, Total 03/21/24 * Acute Hepatitis A B C Panel 03/21/24 * Enteric Panel by PCR 03/21/24 * Vitamin D 25 Hydroxy 03/21/24 * Ferritin 03/21/24 [facility] Evaluation + Plan note Future Appointments Appointment Date:07/05/2024 09:15:00 AM Scheduled Provider:Eloisa Hassan MD Location:[facility] Appointment Type:[facility] Follow Up Appointment Date:08/30/2024 10:00:00 AM Scheduled Provider:Pete Gar MD Location:[facility] Appointment Type: Open Appointment Date:11/21/2024 11:00:00 AM Scheduled Provider: Location:[facility] Appointment Type:FM Medicare Wellness Subsequent Diagnostic Tests Pending * MASSIMO w/Reflex if POS 04/02/24 * Antimitochondrial Antibody, Quantitative 04/02/24 * Hepatitis A Virus (HAV) Antibody, Total 04/02/24 * Acute Hepatitis A B C Panel 04/02/24 * IgG, Quant. 04/02/24 * Smooth Muscle Antibody Screen 04/02/24 * Celiac Disease Comprehensive 04/02/24 * Quantiferon-TB Plus (Client Incubated) 04/02/24 Future Scheduled Tests Laboratory* Pancreatic Elastase, Fecal 03/21/24 * O & P Exam, Routine 03/21/24 [facility] evaluation + Plan note Future Appointments Appointment Date:07/05/2024 09:15:00 AM Scheduled Provider:Eloisa Hassan MD Location:[facility] Appointment Type:[facility] Follow Up Appointment Date:08/30/2024 10:00:00 AM Scheduled Provider:Pete Gar MD Location:[facility] Appointment Type: Open Appointment Date:11/21/2024 11:00:00 AM Scheduled Provider: Location:[facility] Appointment Type: Medicare Wellness Subsequent Future Scheduled Tests Laboratory* Pancreatic Elastase, Fecal 03/21/24 * O & P Exam, Routine 03/21/24 [facility] Evaluation + Plan note Future Appointments Appointment Date:07/05/2024 09:15:00 AM Scheduled Provider:Eloisa Hassan MD Location:[facility] Appointment Type:[facility] Follow Up Appointment Date:08/30/2024 10:00:00 AM Scheduled Provider:Pete Gar MD Location:[facility] Appointment Type: Open Appointment Date:11/21/2024 11:00:00 AM Scheduled Provider: Location:[facility] Appointment Type:FM Medicare Wellness Subsequent Diagnostic Tests Pending * O & P Exam, Routine 04/04/24 * Pancreatic Elastase, Fecal 04/04/24 [facility] evaluation + Plan note Future Appointments Appointment Date:05/03/2024 02:00:00 PM Scheduled Provider: Location:[facility] Surgical Services Appointment Type:ASU IV Other () Appointment Date:07/05/2024 09:15:00 AM Scheduled Provider:Eloisa Hassan MD Location:[facility] Appointment Type:[facility] Follow Up Appointment Date:08/30/2024 10:00:00 AM Scheduled Provider:Pete Gar MD Location:[facility] Appointment Type: Open Appointment Date:11/21/2024 11:00:00 AM Scheduled Provider: Location:[facility] Appointment Type: Medicare Wellness Subsequent [facility] Evaluation + Plan note Future Appointments Appointment Date:07/05/2024 09:15:00 AM Scheduled Provider:Eloisa Hassan MD Location:[facility] Appointment Type:[facility] Follow Up Appointment Date:08/30/2024 10:00:00 AM Scheduled Provider:Pete Gar MD Location:[facility] Appointment Type:FM Open Appointment Date:11/21/2024 11:00:00 AM Scheduled Provider: Location:[facility] Appointment Type:FM Medicare Wellness Subsequent [facility] Evaluation + Plan note Future Appointments Appointment Date:06/07/2024 10:20:00 AM Scheduled Provider:SWETHA COLLIER PA-C Location:[facility] Appointment Type:URO New Patient Appointment Date:06/29/2024 10:00:00 AM Scheduled Provider:Pooja Stephens MD [facility] Type:Pulmonary Follow Up (FT) Appointment Date:07/05/2024 09:15:00 AM Scheduled Provider:Eloisa Hassan MD Location:[facility] Appointment Type:[facility] Follow Up Appointment Date:08/30/2024 10:00:00 AM Scheduled Provider:Pete Gar MD Location:[facility] Appointment Type: Open Appointment Date:11/21/2024 11:00:00 AM Scheduled Provider: Location:[facility] Appointment Type:FM Medicare Wellness Subsequent Future Scheduled Tests Laboratory* Calprotectin, Fecal 06/01/24 * C-Reactive Protein 06/01/24 Radiology* CT Chest w/o High Resolution 06/15/24 * XR Chest 2 Views 06/11/24 [facility] Evaluation + Plan note Future Appointments Appointment Date:06/29/2024 10:00:00 AM Scheduled Provider:Pooja Stephens MD [facility] Type:Pulmonary Follow Up (FT) Appointment Date:07/05/2024 09:15:00 AM Scheduled Provider:Eloisa Hassan MD Location:[facility]ive [facility] Appointment Type:BAD Follow Up Appointment Date:08/30/2024 10:00:00 AM Scheduled Provider:Pete Gar MD Location:[facility] Appointment Type:FM Open Appointment Date:11/21/2024 11:00:00 AM Scheduled Provider: [facility] Type:FM Medicare Wellness Subsequent Appointment Date:12/07/2024 09:40:00 AM Scheduled Provider:SWETHA COLLIER PA-C Location:[facility] Appointment Type:URO Office Visit Future Scheduled Tests Laboratory* Calprotectin, Fecal 06/01/24 * C-Reactive Protein 06/01/24 Radiology* CT Chest w/o High Resolution 06/15/24 * XR Chest 2 Views 06/11/24 [facility] evaluation + Plan note Future Appointments Appointment Date:07/13/2024 11:00:00 AM Scheduled Provider:Pooja Stephens MD [facility] Type:Pulmonary Follow Up () Appointment Date:08/01/2024 10:00:00 AM Scheduled Provider: Location:[facility] Appointment Type:ASU IV Other () Appointment Date:08/30/2024 10:00:00 AM Scheduled Provider:Pete Gar MD Location:[facility] Appointment Type: Open Appointment Date:10/04/2024 10:15:00 AM Scheduled Provider:Eloisa Hassan MD Location:[facility]ive [facility] Appointment Type:BAD Follow Up Appointment Date:11/21/2024 11:00:00 AM Scheduled Provider: Location:[facility] Appointment Type: Medicare Wellness Subsequent Appointment Date:12/07/2024 09:40:00 AM Scheduled Provider:SWETHA COLLIER PA-C Location:[facility] Appointment Type:URO Office Visit Future Scheduled Tests Radiology* XR Chest 2 Views 06/11/24 [facility] Evaluation + Plan note Future Appointments Appointment Date:08/30/2024 10:00:00 AM Scheduled Provider:Pete Gar MD Location:[facility] Appointment Type: Open Appointment Date:10/04/2024 10:15:00 AM Scheduled Provider:Eloisa Hassan MD Location:[facility] Appointment Type:BADH Follow Up Appointment Date:11/21/2024 11:00:00 AM Scheduled Provider: Location:[facility] Appointment Type: Medicare Wellness Subsequent Appointment Date:12/07/2024 09:40:00 AM Scheduled Provider:SWETHA COLLIER PA-C Location:[facility] Appointment Type:URO Office Visit Future Scheduled Tests Radiology* XR Chest 2 Views 06/11/24 [facility] Evaluation noteNo InformationNort Cloneless Other Evaluation noteNo assessment information available [facility] Work Phone: History and physical note Author Sebas Jalloh [facility] June 30, 2022 11:28am Note Date/Time June 30, 2022 11: 28am [facility] [address] [place] [address] Gastroenterology H&P Signed Patient: Bennie Dennis MR#: [id number] : 1945 Acct:[id number] Age/Sex: 76 / M Adm Date: 3 Loc: Room: Type: [facility] Attending Dr: Sebas Jalloh MD Copies to: MD [place] MD~ Date of Service: 06/30/2022 HISTORY [...] 06/30/22 1128 [facility] Work Phone: Histfbm general Narrative - Reported* Type Description Date Surgical History PACEMAKER [facility] [employer] Other [facility] general Narrative - Reported* Type Description Date Surgical History PACEMAKER Surgical History heart stent Hospitalization History see surgical hx [facility] [employer] Other Hospital course Narrative No data available for this section [facility] Additional Instructions DISCHARGE INSTRUCTIONS [...] problems. -Follow up with PCP. -Office number [phone].[facility] Work Phone: Hospital Discharge instructions No data available for this section [facility] No data available for this section [facility] Summary Purpose Family History No Family History Records Found Relationship Condition Age at Onset Recorded Date/T urbano Not Specified Cardiovascular disease Unknown Relationship Condition Age at Onset Recorded Date/T urbano mother Cardiovascular disease Unknown brother Malignant neoplasm Unknown Unknown father Malignant neoplasm Unknown mother Heart disease Unknown Advance Directives No Advanced Directives Records Found Advance Directive Response Recorded Date/ Time Advance Directives Yes December 12:07pm Advance Directive Response Recorded Date/ Time Advance Directives Yes December 11:07am Chief Complaint and Reason for Visit Chief Complaint Ulcertive Colitis Chief Complaint Admit Date catheter issues, pain May 23, 2024 10:47am Additional Source Comments (unrecognized sect ion and [...] section and content) DATE CREATED AUTHOR 08/19/2018 [facility] DATE CREATED AUTHOR AUTHOR'S ORGANIZ ATION 09/24/2022 [facility] DATE CREATED AUTHOR AUTHOR'S ORGANIZ ATION 02/22/2024 [facility] DATE CREATED AUTHOR AUTHOR'S ORGANIZ ATION 03/31/2024 [facility] DATE CREATED AUTHOR AUTHOR'S ORGANIZ ATION 04/03/2024 [facility] DATE CREATED AUTHOR AUTHOR'S ORGANIZ ATION 04/05/2024 [facility] DATE CREATED AUTHOR AUTHOR'S ORGANIZ ATION 04/09/2024 [facility] DATE CREATED AUTHOR AUTHOR'S ORGANIZ ATION 04/10/2024 [facility] DATE CREATED AUTHOR AUTHOR'S ORGANIZ ATION 05/06/2024 [facility] DATE CREATED AUTHOR AUTHOR'S ORGANIZ ATION 05/08/2024 [facility] DATE CREATED AUTHOR AUTHOR'S ORGANIZ ATION 05/09/2024 [facility] DATE CREATED AUTHOR AUTHOR'S ORGANIZ ATION 05/10/2024 [facility] DATE CREATED AUTHOR AUTHOR'S ORGANIZ ATION 05/11/2024 [facility] DATE CREATED AUTHOR AUTHOR'S ORGANIZ ATION 05/12/2024 [facility] DATE CREATED AUTHOR AUTHOR'S ORGANIZ ATION 05/13/2024 [facility] DATE CREATED AUTHOR AUTHOR'S ORGANIZ ATION 05/14/2024 [facility] DATE CREATED AUTHOR AUTHOR'S ORGANIZ ATION 05/19/2024 [facility] DATE CREATED AUTHOR AUTHOR'S ORGANIZ ATION 05/22/2024 [facility] DATE CREATED AUTHOR AUTHOR'S ORGANIZ ATION 05/29/2024 [facility] DATE CREATED AUTHOR AUTHOR'S ORGANIZ ATION 06/03/2024 [facility] DATE CREATED AUTHOR AUTHOR'S ORGANIZ ATION 06/05/2024 [facility] DATE CREATED AUTHOR AUTHOR'S ORGANIZ ATION 06/09/2024 [facility] DATE CREATED AUTHOR AUTHOR'S ORGANIZ ATION 06/11/2024 [facility] DATE CREATED AUTHOR AUTHOR'S ORGANIZ ATION 06/26/2024 [facility] DATE CREATED AUTHOR AUTHOR'S ORGANIZ ATION 07/06/2024 [facility] DATE CREATED AUTHOR AUTHOR'S ORGANIZ ATION 07/07/2024 [facility] DATE CREATED AUTHOR AUTHOR'S ORGANIZ ATION 07/10/2024 [facility] DATE CREATED AUTHOR AUTHOR'S ORGANIZ ATION 2024 [facility] DATE CREATED AUTHOR AUTHOR'S ORGANIZ ATION 09/15/2024 [facility] DATE CREATED AUTHOR AUTHOR'S ORGANIZ ATION 09/15/2024 [facility] DATE CREATED AUTHOR AUTHOR'S ORGANIZ ATION 09/20/2024 [facility] REASON FOR VISIT (unrecogniz ed section and content) PATIENT HERE FOR FOLLOW UP C OLONOSCOPY. PATIENT STATES HE IS STILL HAVING PROBLEMS WITH CONSTIPATION AND DIARRHEA. PATIENT STOPPED TAKING THE METAMUCIL.BalsalazideClinicalRefillsRefillsPT HERE FOR FOLLOW UPClinical3 month follow up apptREFILL REQUESTSCRIPT INFO Care Teams (unrecognized sec tion and content) Team Status: Active Member Role Status Dates Donato Robin MD Primary Care Provider Active Team Status: Inactive Member Role Status Dates Donato Robin MD Primary Care Provider Active Sebas Jalloh MD Attending Provider Active Team Status: Active Member Role Status Dates NON STAFF Primary Care Provider Active Team Status: Inactive Member Role Status Dates NON STAFF Primary Care Provider Active Start: May 23, 2024 End: May 23, 2024 Gary Madsen APRN Emergency Provider Active Start: May 23, 2024 End: May 23, 2024 Goals (unrecognized section and content) Goals may be documented in a n alternate section FOR RECORDS PERTAINING TO PATIENTS WHO ARE [...] BE BASED ON THE PRIMARY CLINICAL RECORDS. [employer] provides no warranty or guarantee of the accuracy or completeness of information in this document.
== END 2024-09-27 09:11 | disposition home or self-care (01) ==
LOC: RAD 09:10
PROVIDERS: PCP Family Medicine; Visit Provider Internal Medicine Cardiovascular Disease
DX: A41.9 Sepsis, unspecified organism (principal); Z95.0 Presence of cardiac pacemaker
CPT/HCPCS: 71046

== ENCOUNTER 2024-09-28 07:33 | Outpatient (RCR) | payer MEDICARE, OTHER, SELFPAY ==
[2024-09-28 08:56] VITALS: BP 108/72; PULSE 78; TEMP 36.4; O2SAT 97
[2024-09-28] MEDS: VEDOLIZUMAB 300 MG in 0.9 % SODIUM CHLORIDE 250 ML 500 MG IV (09:02)
[2024-09-28] MEDS: 0.9 % SODIUM CHLORIDE 250 ML 500 ML IV (09:09)
[2024-09-28 09:40] VITALS: BP 104/72; PULSE 70; TEMP 36.4; O2SAT 95
== END 2024-10-15 23:59 | disposition home or self-care (01) ==
LOC: INF 07:33
PROVIDERS: PCP Family Medicine; Visit Provider Internal Medicine
DX: K51.90 Ulcerative colitis, unspecified, without complications (principal)
CPT/HCPCS: 96365; J3380

== ENCOUNTER 2024-10-16 02:34 | Outpatient (RCR) | payer MEDICARE, OTHER, SELFPAY | END 2024-11-15 16:33 | disposition home or self-care (01) | LOC: MM 02:34 | PROVIDERS: PCP Family Medicine; Visit Provider Internal Medicine | DX: Z51.81 Encounter for therapeutic drug level monitoring (principal); Z79.01 Long term (current) use of anticoagulants | CPT/HCPCS: 85610; G0463 ==

== ENCOUNTER 2024-11-16 00:34 | Outpatient (RCR) | payer MEDICARE, OTHER, SELFPAY | END 2024-12-13 12:54 | disposition home or self-care (01) | LOC: MM 00:34 | PROVIDERS: PCP Family Medicine; Visit Provider Internal Medicine | DX: Z51.81 Encounter for therapeutic drug level monitoring (principal); Z79.01 Long term (current) use of anticoagulants; I48.19 Other persistent atrial fibrillation; I72.8 Aneurysm of other specified arteries | CPT/HCPCS: 85610; G0463 ==

== ENCOUNTER 2024-11-22 07:37 | Outpatient (RCR) | payer MEDICARE, OTHER, SELFPAY ==
[2024-10-16 00:05] VITALS: BP 104/72; PULSE 70; TEMP 36.4; O2SAT 95
[2024-11-22 08:52] VITALS: BP 122/69; PULSE 63; TEMP 36.1; O2SAT 97
[2024-11-22] MEDS: VEDOLIZUMAB 300 MG in 0.9 % SODIUM CHLORIDE 250 ML 500 MG IV (09:14)
== END 2024-12-16 23:59 | disposition home or self-care (01) ==
LOC: INF 07:37
PROVIDERS: PCP Family Medicine; Visit Provider Internal Medicine
DX: K51.90 Ulcerative colitis, unspecified, without complications (principal)
CPT/HCPCS: 96365; J3380

== ENCOUNTER 2024-12-17 03:02 | Outpatient (RCR) | payer MEDICARE, OTHER, SELFPAY | END 2025-01-15 15:17 | disposition home or self-care (01) | LOC: MM 03:02 | PROVIDERS: PCP Family Medicine; Visit Provider Internal Medicine | DX: Z51.81 Encounter for therapeutic drug level monitoring (principal); Z79.01 Long term (current) use of anticoagulants; I48.20 Chronic atrial fibrillation, unspecified; I72.8 Aneurysm of other specified arteries | CPT/HCPCS: 85610; G0463 ==

== ENCOUNTER 2025-01-16 05:17 | Outpatient (RCR) | payer MEDICARE, OTHER, SELFPAY | END 2025-02-15 23:59 | disposition home or self-care (01) | LOC: MM 05:17 | PROVIDERS: PCP Family Medicine; Visit Provider Internal Medicine | DX: Z51.81 Encounter for therapeutic drug level monitoring (principal); Z79.01 Long term (current) use of anticoagulants; I48.20 Chronic atrial fibrillation, unspecified; I72.8 Aneurysm of other specified arteries | CPT/HCPCS: 85610; G0463 ==

== ENCOUNTER 2025-01-16 09:20 | Outpatient (RCR) | payer MEDICARE, OTHER, SELFPAY ==
[2025-01-16 09:28] VITALS: BP 96/66; PULSE 65; TEMP 36.4; O2SAT 95
[2025-01-16] MEDS: VEDOLIZUMAB 300 MG in 0.9 % SODIUM CHLORIDE 250 ML 510 MG IV (09:58)
== END 2025-02-15 23:59 | disposition home or self-care (01) ==
LOC: INF 09:20
PROVIDERS: PCP Family Medicine; Visit Provider Internal Medicine
DX: K51.90 Ulcerative colitis, unspecified, without complications (principal)
CPT/HCPCS: 96365; J3380

== ENCOUNTER 2025-02-16 11:44 | Outpatient (RCR) | payer MEDICARE, OTHER, SELFPAY | END 2025-03-17 23:59 | disposition home or self-care (01) | LOC: MM 11:44 | PROVIDERS: PCP Family Medicine; Visit Provider Family Medicine | DX: Z51.81 Encounter for therapeutic drug level monitoring (principal); Z79.01 Long term (current) use of anticoagulants; Z78.9 Other specified health status | CPT/HCPCS: 85610; G0463 ==

== ENCOUNTER 2025-03-18 11:53 | Outpatient (RCR) | payer MEDICARE, OTHER, SELFPAY | END 2025-04-17 12:54 | disposition home or self-care (01) | LOC: MM 11:53 | PROVIDERS: PCP Family Medicine; Visit Provider Internal Medicine | DX: Z51.81 Encounter for therapeutic drug level monitoring (principal); Z79.01 Long term (current) use of anticoagulants; Z78.9 Other specified health status | CPT/HCPCS: 85610; G0463 ==

== ENCOUNTER 2025-03-29 08:46 | Outpatient (RCR) | payer MEDICARE, OTHER, SELFPAY ==
[2025-02-16 00:08] VITALS: BP 96/66; PULSE 65; TEMP 36.4; O2SAT 95
[2025-03-29 08:53] VITALS: BP 120/75; PULSE 69; TEMP 36.1; O2SAT 96
[2025-03-29] MEDS: VEDOLIZUMAB 300 MG in 0.9 % SODIUM CHLORIDE 250 ML 510 MG IV (09:09)
== END 2025-04-17 23:59 | disposition home or self-care (01) ==
LOC: INF 08:46
PROVIDERS: PCP Family Medicine; Visit Provider Internal Medicine
DX: K51.90 Ulcerative colitis, unspecified, without complications (principal)
CPT/HCPCS: 96365; J3380

== ENCOUNTER 2025-04-16 13:36 | Outpatient (OUT) | payer MEDICARE, OTHER, SELFPAY ==
--- OUTSIDE RECORDS SUMMARY | 2025-04-16 13:43 | XMS_ITS | Clinical Summary ---
Author Organization [facility] Address [address] [place] [address] Care Team Providers Care Customer Services Manager Name Role Phone Shaikh PAT Garcia Primary Care Provider [phone] Social History Tobacco UseTypesPacks/DayYears UsedDateSmoking Tobacco: Never AssessedSex and Gender InformationValueDate RecordedSex Assigned at BirthNot on fileLegal Sex Male04/14/2023 11:08 AM ESTGender IdentityNot on fileSexual OrientationNot on file Plan of Treatment Not on file Insurance Care Teams Team MemberRelationshipSpecialtyStart DateEnd Date Shaikh Garcia MD PCP - GeneralInternal Medicine07/04/23
--- OUTSIDE RECORDS SUMMARY | 2025-04-16 13:43 | XMS_ITS | Encounter Summary ---
Author Organization [facility] Address [address] [place] [address] Care Team Providers Care Collar Turner Name Role Phone Cary Avalos CLIMATE CHANGE ANALYST-C Primary Care Provider [phone] Reason for Visit * ReasonOnset DateCommentsMed Yuceof8604/08/2025 Encounter Details DateTypeDepartmentCare Team (Latest Contact Info)Wcyxxjwtvil53/22/2025Refill [facility] [address] [place] [address] Laya Montano MA Social History Tobacco UseTypesPacks/DayYears UsedDateSmoking Tobacco: [id number] - 1989Smokeless Tobacco: NeverAlcohol UseStandard Drinks/WeekCommentsNot Currently 0 (1 standard drink = 0.6 oz pure alcohol)UT Safety & EnvironmentAnswerDate RecordedFear of Current or Ex-PartnerNot on file06/09/2023Emotionally AbusedNot on file06/09/2023hysically AbusedNot on file06/09/2023Sexually AbusedNot on file4Physically or Sexually AbusedNot on file06/09/2023Sex and Gender InformationValueDate RecordedSex Assigned at RsavpPtrb31/11/2025 12:27 PM EDT Legal CzgMekh5610/14/2021 11:01 PM EDTGender FnifmnkbQdmg35/11/2025 12:27 PM EDT Sexual OrientationChoose not to /30/2025 11:16 PM EDTdocumented as of this encounter Plan of Treatment DateTypeDepartmentCare Team (Latest Contact Info)Gofcpneteaz47/23/2026 9:45 AM ESTOffice Visit [facility] [address] [place] [id number] Randal Jacques MD [address] [facility] [place] [address] documented as of this encounter Visit Diagnoses Not on filedocumented in this encounter Care Teams Team MemberRelationshipSpecialtyStart DateEnd Date Cary Avalos FNP-C [address] [place] [address] PCP - GeneralNurse Practitioner10/08/24documented as of this encounter
--- OUTSIDE RECORDS SUMMARY | 2025-04-16 13:43 | XMS_ITS | Patient Health Record ---
Author Organization [facility] Address [address] [place] [address] Care Team Providers Care Staff Certified Nurse Midwife Name Role Phone Flory Robin MD Primary Care Provider Unavailabl e Allergies No Known Allergies Reason For Referral No Information Medications Medication SIG (Take, Route, Frequency, Duration) Notes Start Date End Date Status Baby Aspirin ActiveEntresto 24-26 MG1 tablet Orally Twice a dayActiveSpironolactone 25 MG1 tablet OrallyActiveWarfarin Sodium 2 MG1 tablet Orally Once a dayActive Carvedilol 12.5 MG1 tablet with food Orally Twice a dayActiveBalsalazide Disodium 750 MG2 capsules Orally Twice a dayActiveAtorvastatin-Coenzyme Q10 Active Social History Tobacco Use: Social History Observation Description Date Details (start date - stop date) Former Smoker NA - NA Tobacco Use/Smoking Question Answer Notes Patient is a former smoker Plan Of Treatment No Information Insurance Providers Payer Name Payer Address Payer Phone Subscriber Number Group Number Insured Name Patient Relationship to Insured Coverage Start Date Coverage End Date [place] [address] [place] [address] [id number] Reyna Dennis - patient is the insured[employer] [address] [place], [place] [id number] Reyna Dsouza - patient is the insured Medical (General) History Medical History History ICD Code stroke stomach ulcersHospitalization History Reason Date(Month/Year) heart problems stroke
--- OUTSIDE RECORDS SUMMARY | 2025-04-16 13:43 | XMS_ITS | Clinical Summary ---
Author Organization [facility] Address [address], [address] [place] [address] Care Team Providers Care Crane Rigger Name Role Phone Flory Robin MD Primary Care Provider Unavailab le Social History Tobacco UseTypesPacks/DayYears UsedDateSmoking Tobacco: Never AssessedSex and Gender InformationValueDate RecordedSex Assigned at BirthNot on fileLegal Sex Male07/02/2012 11:19 PM EDTGender IdentityNot on fileSexual OrientationNot on file Plan of Treatment Not on file Care Teams Team MemberRelationshipSpecialtyStart DateEnd Date Flory Robin MD [address] [place] [address] PCP - [facility]07/26/12
--- OUTSIDE RECORDS SUMMARY | 2025-04-16 13:43 | XMS_ITS | Encounter Summary ---
Author Organization [facility] Address [address] [place] [address] Care Team Providers Care Patient Scheduling Coordinator Name Role Phone Cary Avalos UNIT TECHNICIAN-C Primary Care Provider [phone] Encounter Details DateTypeDepartmentCare Team (Latest Contact Info)Jipvhvkokln47/13/2025Orders Only [facility] [address] [facility] [place] [address] Chan Jara MD [address] [place] [address] Social History Tobacco UseTypesPacks/DayYears UsedDateSmoking Tobacco: SvhykhArtlkpjitv1514 - 1989Smokeless Tobacco: NeverAlcohol UseStandard Drinks/WeekCommentsNot Currently 0 (1 standard drink = 0.6 oz pure alcohol)UT Safety & EnvironmentAnswerDate RecordedFear of Current or Ex-PartnerNot on file06/09/2023Emotionally AbusedNot on file06/09/2023hysically AbusedNot on file06/09/2023Sexually AbusedNot on file06/09/2023hysically or Sexually AbusedNot on file06/09/2023Sex and Gender InformationValueDate RecordedSex Assigned at GocrzIctn73/11/2025 12:27 PM EDT Legal NywLlzq5710/14/2021 11:01 PM EDTGender DjvczejwIutj42/11/2025 12:27 PM EDT Sexual OrientationChoose not to syqpwzzt03/30/2025 11:16 PM EDTdocumented as of this encounter Plan of Treatment DateTypeDepartmentCare Team (Latest Contact Info)Cubrwcnylhb11/23/2026 9:45 AM ESTOffice Visit [facility] [address] [place] [address] Randal Jacques MD [address] [facility] [address] [facility] [place] [address] documented as of this encounter Procedures Procedure NamePriorityDate/TimeAssociated DiagnosisCommentsCARDIAC DEVICE CHECK - REMOTE - UKMVskxjsu87/13/2025 12:00 AM ESTdocumented in this encounter Results * Cardiac device check - Remote ICD (03/30/2025 12:00 AM EST)Anatomical Region LateralityModalityOtherSpecimen (Source)Anatomical Location / Laterality Collection Method / VolumeCollection TimeReceived Time03/30/2025 Narrative Authorizing ProviderResult TypeResult StatusSanorma Jara [facility] IMPLANTABLE CARDIAC DEVICE PROCEDURESFinal Result documented in this encounter Visit Diagnoses Not on filedocumented in this encounter Care Teams Team MemberRelationshipSpecialtyStart DateEnd Date Cary Avalos FNP-C [address] [place] [address] PCP - GeneralNurse Practitioner10/08/24documented as of this encounter
--- OUTSIDE RECORDS SUMMARY | 2025-04-16 13:43 | XMS_ITS | Clinical Summary ---
Author Organization [facility] Address [address] [address] Care Team Providers Care Operations Logistics Analyst Name Role Phone Cary Avalos EYE DROPPER ASSEMBLER-C Primary Care Provider [phone] Allergies No known active allergies Medications MedicationSigDispense QuantityRefillsLast FilledStart DateEnd DateStatus aspirin 81 mg EC tablet in the morning.Active atorvastatin (Lipitor) 80 mg tablet Take 80 mg by mouth at bedtime.Active balsalazide (Colazal) 750 mg capsule balsalazide 750 mg capsule TAKE 3 CAPSULES BY MOUTH TWICE DAILYActive sacubitriL-valsartan (Entresto) 24-26 mg tablet every 12 (twelve) hours.2Active warfarin (Coumadin) 4 mg tablet Indications:Paroxysmal atrial fibrillation (CMS/HCC)warfarin 4 mg tablet 90 tablet 3Active Creon 36,000-114,000- 180,000 unit capsule,delayed release(DR/EC) capsule Take 1 capsule by mouth.4Active mesalamine (Lialda) 1.2 gram EC tablet Take by mouth in the morning.4Active omega-3 (Fish OiL) 60-90-500 mg capsule Take by mouth in the morning.5Active tamsulosin (Flomax) 0.4 mg 24 hr capsule Take 0.4 mg by mouth in the morning.5Active cholecalciferol (Vitamin D3) 25 MCG (1000 units) tablet Take by mouth in the morning.5Active mirtazapine (Remeron Alisha-Tab) 15 mg disintegrating tablet Take 15 mg by mouth at bedtime.5Active Daily-Cira, with folic acid, 400 mcg tablet Take 1 tablet by mouth in the morning.5Active carvedilol (Coreg) 6.25 mg tablet Indications:Benign hypertensive heart disease with heart failure (CMS/HCC)Take 1 tablet (6.25 mg) by mouth with breakfast and with evening meal. In addition to 3.125mg tablets=9.375mg twice daily) 180 tablet //6Active Additional Information Patient not taking.Reported on 01/08/2025 carvedilol (Coreg) 3.125 mg tablet Indications:Benign hypertensive heart disease with heart failure (CMS/HCC)Take 1 tablet (3.125 mg) by mouth with breakfast and with evening meal. (In addition to 6.25mg tablets=9.375mg twice daily) 180 tablet 6Active Additional Information Patient not taking.Reported on 01/08/2025 obeticholic acid (Ocaliva) 5 mg tablet Take 5 mg by mouth in the morning.Active omeprazole (PriLOSEC) [address] capsule Take 1 capsule by mouth in the morning.5Active spironolactone (Aldactone) 25 mg tablet Indications:Chronic systolic heart failure (CMS/HCC)TAKE ONE-HALF (1/2) TABLET DAILY 45 tablet 5Active sotalol (Betapace) 80 mg tablet Indications:Paroxysmal atrial fibrillation (CMS/HCC)Take 1 tablet (80 mg) by mouth two times daily. 180 tablet /6Active carvedilol (Coreg) 12.5 mg tablet Indications:Chronic systolic heart failure (CMS/HCC)TAKE 1 TABLET WITH BREAKFAST AND EVENING MEAL 180 tablet 5Active Additional Information Patient not taking.Reported on 01/08/2025 sotalol (Betapace) 120 mg tablet Indications:Paroxysmal atrial fibrillation (CMS/HCC)Take 1 tablet (120 mg) by mouth every 12 (twelve) hours. 180 tablet 6Active Active Problems ProblemNoted DateDiagnosed DateIron deficiency aspwnc2011/26/2024Steatosis of liver10/11/2024Urine /22/2025Weight gain08/07/2024VT (ventricular tachycardia)08/07/2024Other ventricular xsmeywtiwdi14/22/2025lood in stool 05/28/2024MI 22.0-22.9, adult05/28/2024hronic qqvwlbtixmabdir80/10/2025 Jjcrwebkxeu18/10/2025Elevated liver euvjrbd1005/28/2024Esophageal dysphagia 05/28/2024Leg hqlwtuag28/10/2025Loose bqljuv9305/28/20249523Wvkqoiwki84/10/2025Primary biliary udindbdtcpe44/10/2025Nutritional deficiency, lemqjjigeig75/07/2025 Difficulty in walking, not elsewhere fwmudwcuno22/06/2025Limitation of activities due to nqmprmxnny17/06/2025Muscle weakness (generalized)05/24/2024 Acute kidney failure, kxpziawdauo75/05/2025ute respiratory failure with fyzawud5105/23/2024nemia, nvdaifbyhtb59/05/2025enign prostatic hyperplasia without lower urinary tract hqmvqywo85/05/2025Other correction (current) drug roymyrj5205/23/2024ognitive communication nyyylhy2405/23/2024Dysphagia, oral phase 05/23/2024Flaccid hemiplegia affecting unspecified side05/23/2024Hyperlipidemia, jzgtzlrpyca05/05/9357Opkznysmbik65/05/2025Other specified diseases of pancreas 05/23/2024Pleural effusion, not elsewhere ervnowhmex14/05/2025Pneumonia, unspecified efhnyyos83/05/2025Ulcerative (chronic) pancolitis without fdgbzpamujvzn55/05/2025Unspecified sequelae of cerebral grndbwqsoy06/05/2025 Pyffnstb07/05/2025Feeling of incomplete bladder otgmksid68/05/2025Sepsis, unspecified iunzwesj80/05/2025dhesive capsulitis of fgzufktv77/15/2023 03/02/2023DD (degenerative disc disease), rwgeff77Hemiparesis Hx of arterial ischemic uunvlf91Hx of heart artery stentrostate fpcruvud10 Ulcerative jinpzzd493Atrial vgjqwnymeuav20/17/2022Pericardial /17/2022ystolic heart cxcibiu5702/01/2022 Assessment & Plan (09/07/2023 12:59 PM EDT): NYHC II currently euvolemic, without exacerbation, his weight is actually down from last visit- states poor appetite r/t ulcerative colitis. Continue GDMT- ASA, lipitor, coreg, entresto and aldactone Diuretic therapy- none needed currently Monitor daily weights, I&O, fluid restriction 1.5-2L/day, renal function and electrolytes History of cardioembolic kabedw8302/01/2022ICD (automatic cardioverter/defibrillator) zgoboae1702/01/2022 Assessment & Plan (09/07/2023 12:57 PM EDT): Device interrogation q 6 months Nonsustained ventricular jwoiljdijxk67/17/2022 Assessment & Plan (09/07/2023 12:58 PM EDT): Continue coreg, no DFTs noted per pt. AICD History of cardiovascular uxwziagk44/21/2013Chronic ischemic heart disease 08/15/2012cute myocardial infarction of anterior wall08/15/2012Coronary arteriosclerosis in [place] sfpzbw1708/15/2012 Assessment & Plan (09/07/2023 12:57 PM EDT): Coronary artery disease is unchanged. Continue current treatment regimen. Regular aerobic exercise. Continue current medications. Cardiac status will be reassessed in 6 months. Acute ill-defined cerebrovascular wfrrhpa0208/15/2012 Encounters DateTypeDepartmentCare LiobHvfnkfahazq50/22/2025[facility] [address] [place] [address] Laya Montano MA 04/01/2025 3:30 PM ESTAncillary Procedure [facility] [address] [facility], [address] [place] [id number] Pre-operative cardiovascular examination, ICD in place03/30/2025Orders Only [facility] [address], [address] [place] [address] Chan Jara MD 02/27/2025 9:35 AM ESTAncillary Procedure [facility] [address], [address] [place] [address] Pre-operative cardiovascular examination, ICD in place02/27/2025Orders Only [facility] [address], [address] 1 [place] [address] Chan Jraa MD 02/19/2025 10:00 AM ESTAncillary Procedure [facility] [place] [address] Encounter for implantable defibrillator reprogramming or check02/11/2025[facility] [address] [place] [address] Randal Jacques MD Paroxysmal atrial fibrillation ([facility]/HCC)01/28/2025 10:50 AM EDTAncillary Procedure [facility] [address] [facility], [address] 1 [place] [address] Pre-operative cardiovascular examination, ICD in place01/28/2025 9:45 AM EDT Ancillary Procedure [facility] [address] [facility], [address] [place] [address] Pre-operative cardiovascular examination, ICD in place01/25/2025Orders Only [facility] [address] [facility], [address] [place] [address] Chan Jara MD 01/25/2025Orders Only [facility] [address] [facility], [address] [place] [address] Moi Reyes MD 01/21/2025[facility] [address] [place] [address] Laya Montano MA 01/21/2025[facility] [address] [place] [address] Laya Montano MA Paroxysmal atrial fibrillation (CMS/HCC)from Last 3 Months Immunizations ImmunizationAdministration DatesNext DueInfluenza, High Dose Seasonal, Preservative Free02/28/2023,04/12/2021Influenza, Cmvbrtkifco48/26/2021, 02/20/2019Influenza, trivalent, xznwbkofgk87/05/2019Pneumococcal Conjugate PCV 131Pneumococcal Polysaccharide CTU061806/13/2020Unspecified Sars-Cov-2 Ahqskxrrigo32/22/2021,07/18/2020 Family History Medical HistoryRelationNameCommentsCoronary artery diseaseBrotherDiabetesBrother Coronary artery diseaseMotherRelationNameStatusCommentsBrotherDeceasedFather DeceasedMotherDeceased Social History Tobacco UseTypesPacks/DayYears UsedDateSmoking Tobacco: YzvwieSwdfccxaqr5810 - mokeless Tobacco: Never Tobacco Cessation:Counseling Given: Not Answered Alcohol UseStandard Drinks/WeekCommentsNot Currently0 (1 standard drink = 0.6 oz pure alcohol)ME Safety & EnvironmentAnswerDate RecordedFear of Current or Ex-PartnerNot on file06/09/2023Emotionally AbusedNot on file06/09/2023hysically AbusedNot on file06/09/2023Sexually AbusedNot on file06/09/2023hysically or Sexually AbusedNot on file06/09/2023Sex and Gender InformationValueDate Recorded Sex Assigned at LvzkiXxvr85/11/2025 12:27 PM EDTLegal VpwHbld0810/14/2021 11:01 PM EDTGender RjovobdnXbxx64/11/2025 12:27 PM EDTSexual OrientationChoose not to gyjurthy26/30/2025 11:16 PM EDT Last Filed Vital Signs Vital SignReadingTime TakenCommentsBlood Augceilm611/6509 10:57 AM EDT Kmqzf8944 10:57 AM EDTTemperature--Respiratory Hnbt430409/26/2024 2:00 PM EDTOxygen Qekfijofyo20%01/08/2025 10:57 AM EDTInhaled Oxygen Concentration-- Fxhfqm13.9 kg (132 lb)01/08/2025 10:57 AM CFONwbxiz871.7 cm (5' 8 )01/08/2025 10:57 AM EDTBody Mass Index20.0701/08/2025 10:57 AM EDT Plan of Treatment DateTypeDepartmentCare Team (Latest Contact Info)Jzndtwcjtcb14/23/2026 9:45 AM ESTOffice Visit [facility] [address] [place] [address] Randal Jacques MD [address] [facility] [address] [facility] [place] [address] Health MaintenanceDue DateLast DoneCommentsMedicare Annual Wellness (AWV) 1946Depression Iecxxtujz06/27/1959Adult Hqgudsn4707/12/1968Zoster Vaccines (1 of 2)1996Fall Risk Ggyxdvkbj48/27/2012COVID-19 Vaccine ( season)5008/07/2020, 08/07/2020, 07/18/2020, Additional history exists Influenza Vaccine (#1)5104/30/2022, 04/12/2021, 04/12/2021, Additional history existsPneumococcal Vaccine: 50+ NuiuuPvvlexiwz84/26/2021, 02/05/2019HIB VaccinesAged OutNo longer eligible based on patient's age to complete this topic HPV VaccinesAged OutNo longer eligible based on patient's age to complete this topicIPV VaccinesAged OutNo longer eligible based on patient's age to complete this topicMeningococcal B VaccineAged OutNo longer eligible based on patient's age to complete this topicMeningococcal VaccineAged OutNo longer eligible based on patient's age to complete this topicRotavirus VaccinesAged OutNo longer eligible based on patient's age to complete this topic Medical Devices ImplantedTypeAreaManufacturerDevice IdentifierShelf Expiration DateModel / Serial / LotActicor 7 Hf-T Df4 Is-1 Promri Implanted:Qty: 1 on 09/26/2024 by [facility] ICDLeft: [id number] / [id number] / Lead,Betty Cronin 60 - [id number] - [id number] Implanted:Qty: 1 on 09/26/2024 by [facility]i [facility]yes [facility] at [facility] SystemLeadN/A: [id number] / [id number] / Procedures Procedure NamePriorityDate/TimeAssociated DiagnosisCommentsCARDIAC DEVICE CHECK CHECK - DPASXVPtezgpo32/17/2025 6:45 PM EST Pre-operative cardiovascular examination, ICD in place CARDIAC DEVICE CHECK - REMOTE - YUTNpszxcs25/13/2025 12:00 AM ESTCARDIAC DEVICE CHECK CHECK - WSPRNFSgvvqip2025 4:50 PM EST Pre-operative cardiovascular examination, ICD in place CARDIAC DEVICE CHECK - REMOTE - RAXNlitpnn21/12/2025 12:00 AM ESTCARDIAC DEVICE CHECK - IN CLINIC - ICD BIVENTRICULAR CHAMBER W/ PDXPIochhkr83/07/2025 10:48 AM EST Encounter for implantable defibrillator reprogramming or check CARDIAC DEVICE CHECK CHECK - QVFBIEFgwlvda25/14/2025 3:17 PM EDT Pre-operative cardiovascular examination, ICD in place CARDIAC DEVICE CHECK CHECK - GHPOJCZeyzxmr92/14/2025 3:16 PM EDT Pre-operative cardiovascular examination, ICD in place CARDIAC DEVICE CHECK - REMOTE - TTGMqxkzwn31/10/2025 12:00 AM EDTCARDIAC DEVICE CHECK - REMOTE - YORWcycdxc64/10/2025 12:00 AM EDTfrom Last 3 Months Results * CARDIAC DEVICE CHECK - REMOTE - ICD (04/03/2025 6:45 PM EST) Only the most recent of4 resultswithin the time period is included. Specimen (Source)Anatomical Location / LateralityCollection Method / Volume Collection TimeReceived Time Narrative Authorizing ProviderResult TypeResult StatusBlair Lalit [facility]PL[facility] CARDIAC DEVICE PROCEDURESFinal ResultPerforming OrganizationAddressCity/State/ZIP Code Phone Number CPACS * Cardiac device check - Remote ICD (03/30/2025 12:00 AM EST) Only the most recent of4 resultswithin the time period is included. Anatomical RegionLateralityModalityOtherSpecimen (Source)Anatomical Location / LateralityCollection Method / VolumeCollection TimeReceived Time03/30/2025 Narrative Authorizing ProviderResult TypeResult StatusChan Mary Jara [facility] IMPL[facility] CARDIAC DEVICE PROCEDURESFinal Result * CARDIAC DEVICE CHECK - IN CLINIC - ICD BIVENTRICULAR CHAMBER W/ PROG (02/22/2025 10:48 AM EST)Anatomical RegionLateralityModalityOtherSpecimen (Source)Anatomical Location / LateralityCollection Method / VolumeCollection TimeReceived Time Narrative 02/27/2025 12:19 PM EST Normal device function Authorizing ProviderResult TypeResult StatusPavirgilio Reyes [facility] IMPL[facility] CARDIAC DEVICE PROCEDURESFinal Result from Last 3 Months Insurance Care Teams Team MemberRelationshipSpecialtyStart DateEnd Date Cary Avalos, NED [address] [place] [address] PCP - GeneralNurse Practitioner10/08/24
[2025-04-16 14:38] LABS: Alanine Aminotransferase 35 U/L (16-63); Albumin Globulin Ratio 1.2; Albumin Level 4.2 g/dL (3.4-5.0); Alkaline Phosphatase 81 U/L (46-116); Anion Gap 9.1; Aspartate Amino Transferase 34 U/L (15-37); Blood Urea Nitrogen 22.0 mg/dL (7.0-18.0); Calcium 9.7 mg/dL (8.5-10.1); Carbon Dioxide 31.8 mmol/L (21.0-32.0); Chloride 106 mmol/L (98-107); Estimated GFR (African America >60 (>=60 mL/min/1.73m^2); Estimated GFR (Non-African Ame 59 (>=60 mL/min/1.73m^2); Globulin 3.5 g/dL; Glucose 103 mg/dL (74-106); Potassium 3.9 mmol/L (3.5-5.1); Sodium 143 mmol/L (136-145); Total Protein 7.7 g/dL (6.4-8.2)
[2025-04-16 15:00] LABS: Iron 113.0 ug/dL (65.0-175.0); Percent Iron Saturation 28.6 %; Total Iron Binding Capacity 395.0 ug/dL (250.0-450.0)
--- OUTSIDE RECORDS SUMMARY | 2025-04-16 15:19 | XMS_ITS | CCD ---
Author Organization [facility] Care Team Providers Care Medical Observer Name Role Phone ZULY ABAD AM Admitting Unavailable ZULY ABAD AM Attending Unavailable ROBINDONATO MIRANDA Referring Unavailable ROBIN, DONATO Primary Care Unavailable ZULY ABAD AM Admitting Unavailable ZULY ABAD AM Attending Unavailable ROBINDONATO MIRANDA Referring Unavailable ROBIN, DONATO Primary Care Unavailable Sebas Jalloh Unavailable MD Donato Robin Primary Care Provider MD Sebas Jalloh Attending Provider [phone] FAWWAD, LINDA H Attending Unavailable ROBIN ., [...] Admitting Unavailable FAWWAD, LINDA H Attending Unavailable EVELIOUKATEENAEL, ANGELA Admitting Unavailable ROBIN ., DR DONATO Azevedo Primary Care Unavailable MOUKARBEL, ANGELA Attending Unavailable MOUKARBEL, ANGELA Consulting Unavailable KENZIE, ANGELA Attending Unavailable MOUKARBEL, ANGELA Admitting Unavailable ROBIN ., DR DONATO Azevedo Primary Care Unavailable ROBIN ., DR DONATO Azevedo Primary Care Unavailable FAWWAD, LINDA H Admitting Unavailable FAWWAD, LINDA H Attending Unavailable ROBIN ., DR DONATO Azevedo Primary Care Unavailable FAWWAD, LINDA H Admitting Unavailable FAWWAD, LINDA H Attending Unavailable Pete Gar Primary Care Physician Eloisa Hassan Attending Unavailable Manav Hassand A. Referring Unavailable Mouchli, Mohamad A. Admitting Unavailable Gabrielle, Astrit H Attending Unavailable Eloisa Hassan A. Attending Unavailable Moallyson, Mohamad A. Attending Unavailable Mouchli, Mohamad A. Admitting Unavailable Mouchli, Mohamad A. Attending Unavailable Mouchli, Mohamad A. Admitting Unavailable Mouchli, Mohamad A. Attending Unavailable Mouchli, Mohamad A. Admitting Unavailable Mouchli, Mohamad A. Attending Unavailable Mouchli, Mohamad A. Referring Unavailable Mouchli, Mohamad A. Admitting Unavailable Vicente Flanagan Attending Unavailable Moallyson, Mohamad A. Attending Unavailable Pan Gar Attending Unavailable Pan Gar Admitting Unavailable Duane Lund Consulting Unavailable RAHUL Lund Jr. Consulting Unavail able Duane Lund Consulting Unavailable Eloisa Hassan Consulting Unavailable Eloisa Hassan AJames Consulting Unavailable MD Eloisa Hassan Consulting Unavailab le Eloisa Hassan Consulting Unavailable Cleveland Cuadra Consulting Unavailable Cleveland Cuadra Consulting Unavailable MD Cleveland Cuadra Consulting Unavailable Keyona Tapia Unavailable Unavailable NON STAFF Primary Care Provider UnavailGary Calhoun APRN Emergency Provider Pete Gar E. Attending Unavailable Ross, Pete E. Attending Unavailable Ross, Pete E. Admitting Unavailable Ross, Pete E. Attending Unavailable ERIC Avalos Attending Unavailable Ross, Pete E. Attending Unavailable Ross, Pete E. Attending Unavailable Ross, Pete E. Attending Unavailable Ross, Pete E. Attending Unavailable Cong, Pete E. Attending Unavailable Gary Madsen Attending Unavailable Elmer Madsenothy Admitting Unavailable NON STAFF Primary Care Unavailable RAHUL COLLIER Attending Unavailab le Cong, Pete E. Admitting Unavailable Mouchli, Mohamad A. Attending Unavailable Cong, Pete E. Attending Unavailable Pan Gar Admitting Unavailable Pan Gar Attending Unavailable PecDuane martins Consulting Unavailable Pecl ., RAHUL Cardona Consulting Unavail able Pecl Jr., RAHUL Cardona Consulting Unavail able Mouchli, Mohamad A. Attending Unavailable Mouchli, Mohamad [...] Referring Unavailable Cong, Pete E. Attending Unavailable Cong, Pete E. Admitting Unavailable Cong, Pete E. Referring Unavailable Mouchli, Mohamad A. Attending Unavailable Cong, Pete E. Attending Unavailable Tia Peres X Attending Unavailable [place]endale, Bashar X Attending Unavailable NONE, XXXX Referring Unavailable ZEKE TRAN Primary Care Physician [phone] Allendale, Bashar X Admitting Unavailable Allendale, Bashar X Attending Unavailable [place]endale, Bashar X Referring Unavailable Mouchli, Mohamad A. Admitting Unavailable Mouchli, Mohamad A. Attending Unavailable Mouchli, Mohamad A. Referring Unavailable GINI TRAN Admitting Unavailabl e Mouchli, Mohamad A. Attending Unavailable Eloisa Hassan Attending Unavailable MARC, GINI Sheridan Attending Unavailgeovanna TRAN, GINI Sheridan Attending UnavailPete Lieberman Attending Unavailable MARC, GINI Sheridan Attending Unavailgeovanna TRAN, GINI Sheridan Attending Unavailgeovanna e GEOVANNY, MOI Attending Unavailable RUBÉN, ABBI Referring Unavailable RUBÉN, ABBI Referring Unavailable MOUKARBEL, ANGELA Attending Unavailable GEOVANNY, MOI Referring Unavailable GEOVANNY, MOI Referring Unavailable MOUKARBEL, ANGELA Attending Unavailable GEOVANNY, MOI Attending Unavailable GEOVANNY, MOI Admitting Unavailable GEOVANNY, MOI Attending Unavailable GEOVANNY, MOI Attending Unavailable GEOVANNY, MOI Referring Unavailable GEOVANNY, MOI Referring Unavailable GEOVANNY, MOI Referring Unavailable GEOVANNY, MOI Referring Unavailable GEOVANNY, MOI Referring Unavailable RUBÉN, ABBI Referring Unavailable RUBÉN, ABBI Referring Unavailable Allergies Allergy ClassificationReported Allergen(s)Allergy TypeDate of OnsetReaction(s) Facility (19 sources)No Known Medication Allergies; Translations: [No Known Medication Allergies]Propensity to adverse reactions (disorder)[facility] Repository Medications Current Medications MedicationDrug Class(es)DatesSig (Normalized)Sig (Original)amylase [id number] unt / lipase 85820 unt / protease [id number] unt delayed release oral capsule (9 sources)Start: 12-30-0180Bmwmr 36,000 units oral delayed release capsule See Instructions, 200 cap(s), Refill(s) 3, 1 cap with meals and 1 with each snack. contents of capsule may be mixed with soft foods such as applesauce,[facility], 172, cm, 08/30/24 10:01:00 EDT, Height/Length Dosing, 61.1, kg, 08/30/24 10:01:00 EDT, Weight Dosing Start Date: 09/19/24 Status: Ordered Quantity: 200.0 Unit: cap(s) Repeat number: 4Start: 99-19-2715Mmugd 36,000 units oral delayed release capsule See Instructions, 200 cap(s), Refill(s) 3, 1 cap with meals and 1 with each snack. contents of capsule may be mixed with soft foods such as applesauce,[facility]/pharmacy #[id number], 172, cm, 04/02/24 13:36:00 EST, Height/Length Dosing, 57, kg, 04/02/24 13:36:00EST, Weight Dosing Start Date: 04/17/24 Status: OrderedAspir-81 (10 sources)Aspir-81 Activeaspirin 81 mg oral capsule (16 sources)Platelet Aggregation Inhibitor, Nonsteroidal Anti-inflammatory Drug Start: 03-57-7265iurv 1 mg by mouth every twenty-four hoursaspirin 81 mg oral capsule mg cap(s), Oral, q24hr, Refills(s) 0 Start Date: 06/01/24 Status: Ordered Repeat number: 1Start: 10-68-9916hiob 1 tablet by mouth once dailyaspirin 81 mg Oral EC Tab 81 mg = 1 tab(s), Oral, Daily, Refills(s) 0, Prophylaxis Start Date: 09/06/23 Status: OrderedStart: 81-10-9931lmrp 1 capsule by mouth once daily Aspirin 81 mg Capsule Active 81 MG PO Daily January 20, 2021 11:00pm atorvastatin 80 mg oral tablet (20 sources)HMG-CoA Reductase InhibitorStart: 42-26-6646fghjfxcprkbv 80 mg Tab See Instructions, TAKE 1 TABLET DAILY, # 90 tab(s), Refills(s) 3, Pharmacy: [facility], 172, cm, 07/05/24 9:23:00 EDT, Height/Length Dosing, 59, kg, :23:00 EDT, Weight Dosing Start Date: 08/22/24 Status: Ordered Quantity: 90.0 Unit: tab(s) Repeat number: 4Start: 01-21-2021 atorvastatin 80 mg Tab See Instructions, TAKE 1 TABLET DAILY, # 90 tab(s), Refills(s) 3, Pharmacy: [facility], 167.8, cm, 07/18/23 13:34:00 EDT, Height/Length Dosing, 66.2, kg, 07/18/23 13:34:00 EDT, Weight Dosing Start Date: 08/22/23 Status: OrderedLipitor Not-TakingAtorvastatin Calcium ActiveLipitor Activecarvedilol 3.125 mg oral tablet (20 sources)alpha-Adrenergic Wenceslao, beta-Adrenergic BlockerStart: 11-21-2024 take 1 tablet by mouth twice dailycarvedilol 3.125 mg Tab 3.125 mg = 1 tab(s), Oral, BID, # 180 tab(s), Refills(s) 0 Start Date: 11/21/24 Status: Ordered Quantity: 180.0 Unit: tab(s) Repeat number: 1Start: 17-41-4554tabz 1 tablet by mouth twice dailycarvedilol 12.5 mg Tab 12.5 mg = 1 tab(s), Oral, BID, Refills(s) 0, High blood pressure Start Date:03/02/23 Status: Ordered Repeat number: 1Start: 27-11-8849ekrw 1 tablet by mouth twice dailycarvedilol 6.25 mg Tab 6.25 mg = 1 tab(s), Oral, BID, Refills(s) 0 Start Date: 02/28/23 Status: OrderedStart: 32-20-5427reql 2 tablets by mouth twice dailyCarvedilol 6.25 mg tablet Active 12.5 MG PO Twice daily January 20, 2021 11:00pmStart: 01-21-2021 take 12.5 mg by mouth twice dailyCarvedilol Active 12.5 MG PO Twice daily January 21, 2021 12:00amtake 1 tablet by mouth every twelve hoursCarvedilol 12.5 MG 1 tablet with food Orally Twice a day ActiveCarvedilol Active cholecalciferol 0.025 mg oral tablet (2 sources)Vitamin DStart: 66-25-5647kyvl 1 tablet by mouth once daily Cholecalciferol (Vitamin D3) (Vitamin D3) 25 mcg (1,000 unit) Tablet Active 25 MCG PO Daily June 29, 2022 11:00pmferrous sulfate 325 mg oral tablet (1 source)Start: 21-75-2673fdjoxgx sulfate 325 mg Tab 325 mg = 1 tab(s), Oral, BIDWM, # 30 tab(s), Refills(s) 0, Pharmacy: [facility]/pharmacy #[id number], 172, cm, 05/06/24 10:45:00 EST, Height/Length Dosing, 62.6, kg, 05/06/24 10:45:00 EST, Weight Dosing Start Date: 05/14/24 Status: OrderedFish Oils (3 sources)Start: 36-72-7398Jlwc Oil Oral, Refill(s) 0 Start Date: 06/01/24 Status: OrderedFolic Acid (3 sources)Start: 06-05-4611ytxac acid Daily, Refills(s) 0 Start Date: 06/01/24 Status: OrderedICaps AREDS 2 (8 sources)Start: 80-18-3735JOsih AREDS 2 See Instructions, Refill(s) 0, take 1 orally twice a da, Prophylaxis Start Date: 07/11/23 Status: OrderedStart: 07-13-0675ZHpdc AREDS 2 See Instructions, Refill(s) 0, take 1 orally twice a da Start Date: 07/11/23 Status: Orderedlevalbuterol 0.21 mg/ml inhalation solution (1 source)beta2-Adrenergic AgonistStart: 68-08-9335joxw 0.63 mg by inhalation four times dailylevalbuterol 0.63 mg/3 mL Inh Alisha 0.63 mg = 3 mL, Inhalation, QID, # 60 EA, Refills(s) 0, Pharmacy:[facility]/pharmacy #[id number], 172, cm, 05/06/24 10:45:00 EST, Height/Length Dosing, 62.6, kg, 05/06/24 10:45:00 EST, Weight Dosing Start Date: 05/14/24 Status: Orderedmesalamine 1200 mg delayed release oral tablet (18 sources)AminosalicylateStart: 57-75-3044viqh 1 g by mouth once daily mesalamine 1.2 g oral enteric coated tablet gm, tab(s), Oral, Daily, Refill(s) 0 Start Date: 06/01/24 Status: OrderedStart: 70-10-7204rctsuayicu 1.2 g oral enteric coated tablet 2.4 gm, 2 tab(s), Refill(s) 0 Start Date: 03/01/24 Status: OrderedStart: 46-15-1966lfzz 4 tablets by mouth once dailyMesalamine (Lialda) 1.2 gram tablet,delayed release (DR/EC) Active 4.8 GM PO Daily 120 January 11:00pmStart: 67-99-2021xzzh 4 tablets by mouth every twenty-four hours Lialda 1.2 GM 4 tablets Orally Once a day for 30 day(s) Feb, Not-Taking mirtazapine 30 mg disintegrating oral tablet (5 sources)Start: 35-75-7796ptga 1 tablet by mouth once daily at bedtime mirtazapine 30 mg oral tablet, disintegrating 30 mg = 1 tab(s), Oral, Once a day (at bedtime), # 30tab(s), Refills(s) 2, Pharmacy: [facility]/pharmacy #[id number], 172, cm, 07/05/24 9:23:00 EDT, Height/Length Dosing, 59, kg, 07/05/24 9:23:00 EDT, Weight Dosing Start Date: 07/05/24 Status: Ordered Quantity: 30.0Unit: tab(s) Repeat number: 3Start: 42-02-6665mbsw 1 tablet by mouth once daily at bedtime mirtazapine 15 mg oral tablet, disintegrating 15 mg = 1 tab(s), Oral, Once a day (at bedtime), # 30tab(s), Refills(s) 0, 172, cm, 05/06/24 10:45:00 EST, Height/Length Dosing, 62.6, kg, 05/06/24 10:45:00 EST, Weight Dosing Start Date: 06/01/24 Status: Ordered Quantity: 30.0 Unit: tab(s) Repeat number: 1 Indications: Other specified diseases of pancreas; Ulcerative colitis, unspecified, without complications; Other specified soft tissue disorders; Primary biliary cirrhosis;Misc Prescription (8 sources)Start: 31-67-3144Okvv Prescription Mini fish oil 1340mg one a day Start Date: 09/06/23 Status: OrderedMultivitamin preparation (1 source)Start: 60-16-6968rcip 1 tablet by mouth once dailyMultivitamin Active 1 TAB PO Daily June 30, 2022 12:00amMultivitamin Tablet (1 source)Start: 23-43-9688vufv 1 tablet by mouth once dailyMultivitamin Tablet Active 1 TAB PO Daily June 29, 2022 11:00pmobeticholic acid 5 mg oral tablet (3 sources)Farnesoid X Receptor AgonistStart: 41-63-6346pojf 1 tablet by mouth once dailyOcaliva 5 mg oral tablet Oral, Daily, Refills(s) 0 Start Date: 11/21/24 Status: Ordered Repeat number: 1Start: 08-10-2024 End: 08-88-4406berf 1 tablet by mouth once dailyOcaliva 5 mg oral tablet 5 mg = 1 tab(s), Oral, Daily, X 90 day(s), # 90 tab(s), Refills(s) 0, Pharmacy: [facility]/pharmacy #[id number], 172, cm, 07/05/24 9:23:00 EDT, Height/Length Dosing, 59, kg, 07/05/24 9:23:00 EDT, Weight Dosing Start Date: 08/10/24 Stop Date: 11/08/24 Status: Ordered Quantity: 90.0 Unit: tab(s) Repeat number: 1Omega 6-Nod-Ngv-Fish Oil (Fish Oil) 60-90-500 mg Capsule (2 sources)Start: 90-54-1224flxe 1 capsule by mouth once dailyOmega 9-Mpw-Frv-Fish Oil (Fish Oil) 60-90-500 mg Capsule Active 1 CAP PO Daily June 29, 2022 11:00pmStart: 54-97-8829kkcc 1 capsule by mouth once dailyOmega 7-Lzz-Qqr-Fish Oil (Fish Oil) 60-90-500 mg Capsule Active 1 CAP PO Daily June 30, 2022 12:00amomeprazole 40 mg delayed release oral capsule (8 sources)Proton Pump InhibitorStart: 56-22-8243okkc 1 capsule by mouth once dailyomeprazole 40 mg Cap-DR 40 mg = 1 cap(s), Oral, Daily, # 90 cap(s), Refills(s) 0 Start Date: 11/21/24Status: Ordered Quantity: 90.0 Unit: cap(s) Repeat number: 1Start: 47-94-6663xaav 1 capsule by mouth once dailyomeprazole 40 mg Cap-DR 40 mg = 1 cap(s), Oral, Daily, # 90 cap(s), Refills(s) 3, Pharmacy: [facility]/pharmacy #[id number], 172, cm, 03/29/24 14:33:00 EST, Height/Length Dosing, 59.4, kg, 03/29/24 14:33:00 EST, Weight Dosing Start Date: 04/01/24 Status: Ordered One-A-Day Men's Health Formula (15 sources)Start: 52-82-2683gepg 1 tablet by mouth once mnyuqCxq-B-Nou Men's Health Formula 1 tab(s), Oral, Daily, Refill(s) 0, Prophylaxis Start Date: 09/06/23 Status: Ordered Repeat number: 1Start: 48-26-4805qoab 1 tablet by mouth once awsohAad-Y-Dbb Men's Health Formula 1 tab(s), Oral, Daily, Refill(s) 0, Prophylaxis Start Date: 09/06/23 Status: OrderedStart: 15-85-4471naas 1 tablet by mouth once ddzaqJaw-I-Dci Men's Health Formula 1 tab(s), Oral, Daily, Refill(s) 0 Start Date: 09/06/23 Status: OrderedPreserVision AREDS (3 sources)Start: 20-46-0977VrpittQspwqy AREDS See Instructions, Refill(s) 0, take twice daily Start Date: 05/15/24 Status: Orderedsacubitril 24 mg / valsartan 26 mg oral tablet (20 sources)Angiotensin 2 Receptor BlockerStart: 45-02-8530rsbp 1 tablet by mouth twice dailyEntresto 24 mg-26 mg oral tablet 1 tab(s), Oral, BID, Refill(s) 0, ON HOLD UNTIL SEEN BY [facility] 05/14/24 Start Date: 02/28/23 Status: Ordered Repeat number: 1ENTRESTO 2-26 mg ActiveENTRESTO ActiveSotalol (2 sources)AntiarrhythmicStart: 13-17-3829csxjueo 120 mg, Oral, BID, Managed by Dr. Reyes, Refills(s) 0 Start Date: 12/05/24 Status: Ordered Repeat number: 1 spironolactone 25 mg oral tablet (20 sources)Aldosterone AntagonistStart: 00-78-9347jaas 1 tablet by mouth once dailyspironolactone 25 mg Tab 0.5 tab, Oral, Daily, ON HOLD UNTIL SEEN BY [facility] 05/14/24, Refills(s) 0, diuretic/water pill Start Date: 03/01/23 Status: Ordered Repeat number: 1Start: 21-99-2744pkfd 0.5 tablet by mouth once daily spironolactone 25 mg Tab 0.5 tab, Oral, Daily, ON HOLD UNTIL SEEN BY [facility]/C 05/14/24, Refills(s) 0, diuretic/water pill Start Date: 03/01/23 Status: OrderedStart: 50-48-7998Lgmescrmrnmady 25 mg tablet Active 12.5 MG PO Daily June 29, 2022 11:00pmStart: 66-56-6737fvoi 12.5 mg by mouth once daily Spironolactone Active 12.5 MG PO Daily June 30, 2022 12:00amtake 0.5 tablet by mouth once dailySpironolactone 25 MG 1/2 tablet Orally Once a day Active Spironolactone 25 MG 1 tablet Orally Activetamsulosin hydrochloride 0.4 mg oral capsule (2 sources)alpha-Adrenergic BlockerStart: 81-49-4541otpb 1 capsule by mouth once dailytamsulosin 0.4 mg Cap 0.4 mg = 1 cap(s), Oral, Daily, Refills(s) 0 Start Date: 06/07/24 Status: Ordered Repeat number: 1ursodiol 500 mg oral tablet (2 sources)Bile AcidStart: 56-48-7055hxdi 1 tablet by mouth twice daily at mealtimeursodiol 500 mg Tab 500 mg = 1 tab(s), Oral, BID, with food, # 180 tab(s), Refills(s) 1, Pharmacy: [facility]/pharmacy #[id number], 172, cm, 04/02/24 13:36:00 EST, Height/Length Dosing, 57, kg, 04/02/24 13:36:00 EST, Weight Dosing Start Date: 04/09/24 Status: OrderedStelara (2 sources)Interleukin-12 Antagonist, Interleukin-23 AntagonistStart: 05-01-2024 Stelara Refills(s) 0 Start Date: 05/01/24 Status: OrderedEntyvio (3 sources)Integrin Receptor AntagonistStart: 37-76-8193Zxrzkhm See Instructions, IV infusion at [facility]- infusion center every 8 weeks, Refills(s) 0 Start Date: 07/05/24 Status: Ordered Repeat number: 1Start: 59-28-3971Ugtrewk mg, IV, Refills(s) 0 Start Date: 07/05/24 Status: Ordered Repeat number: 1Vitamin D3 10,000 intl units oral capsule (7 sources)Start: 39-04-5989pbfx 1 capsule by mouth once dailyVitamin D3 10,000 intl units oral capsule 250 mcg = 1 cap(s), Oral, Daily, Refills(s) 0 Start Date:05/06/24 Status: Ordered Repeat number: 1Start: 11-59-3448rzvp 1 capsule by mouth once dailyVitamin D3 10,000 intl units oral capsule 250 mcg = 1 cap(s), Oral, Daily, Refills(s) 0 Start Date:05/06/24 Status: OrderedVitamin D3 1000 intl units (25 mcg) Tab (8 sources)Start: 19-91-2819pzck 1 tablet by mouth once dailyVitamin D3 1000 intl units (25 mcg) Tab 25 mcg = 1 tab(s), Oral, Daily, Refills(s) 0, Prophylaxis Start Date: 09/06/23 Status: OrderedStart: 83-25-1227glan 1 tablet by mouth once dailyVitamin D3 1000 intl units (25 mcg) Tab 25 mcg = 1 tab(s), Oral, Daily, Refills(s) 0 Start Date: 09/06/23 Status: Orderedwarfarin sodium 4 mg oral tablet (20 sources)Vitamin K AntagonistStart: 06-63-6175mwwg 1 tablet by mouth once dailywarfarin 4 mg Tab 4 mg = 1 tab(s), Oral, Daily, Managed per [facility] Medication Management, Refills(s) 0Start Date: 02/28/23 Status: Ordered Repeat number: 1 take 2 tablets by mouth every twenty-four hoursWarfarin Sodium 4 MG 2 tablet Orally Once a day ActiveWarfarin Sodium Active Completed/Discontinued Medications MedicationDrug Class(es)DatesSig (Normalized)Sig (Original)Albuterol (Eqv- Ventolin HFA) 90 mcg/inh inhalation aerosol (4 sources)Start: 52-39-7048dnry 8 g by inhalation every six hoursAlbuterol (Eqv-Ventolin HFA) 90 mcg/inh inhalation aerosol 180 mcg, 2 inh, Inhalation, q6hr, 8 gm, Refill(s) 0, [facility]/pharmacy #[id number], 172, cm, 05/06/24 10:45:00 EST, Height/Length Dosing, 62.6, kg, 05/06/24 10:45:00 EST, Weight Dosing Start Date: 05/14/24 Status: Orderedbalsalazide disodium 750 mg oral capsule (12 sources)AminosalicylateStart: 11-21-2023 End: 46-82-6758grzb 1 capsule by mouth three times dailyBalsalazide 750 mg capsule Discontinued 2250 MG PO Three times daily 270 November 20, 2023 11:00pm January 18, 2024 2:22pmStart: 60-39-6806cvcl 3 capsules by mouth three times dailybalsalazide 750 mg oral capsule 2,250 mg = 3 cap(s), Oral, TID, # 504 cap(s), Refills(s) 0 Start Date: 02/28/23 Status: OrderedStart: 55-50-9775rqep 3 capsules by mouth every eight hoursBalsalazide Disodium 750 MG 3 capsules Orally three times a day for 30 days Mar, ActiveStart: 86-20-7050dshm 3 capsules by mouth every twelve hoursBalsalazide Disodium 750 MG 3 capsules Orally Twice a day for 30 day(s) Mar, Activeipratropium bromide 0.2 mg/ml inhalation solution (1 source)AnticholinergicStart: 22-64-9375bsjf 60 doses by inhalation four times dailyipratropium 0.02% Inh Alisha 2.5 mL 500 mcg, 2.5 mL, NEB, QID, 60 EA, Refill(s) 0, [facility]/pharmacy #[id number],172, cm, 05/06/24 10:45:00 EST, Height/Length Dosing, 62.6, kg, 05/06/24 10:45:00 EST, Weight Dosing Start Date: 05/14/24 Status: OrderedNebulizer Machine (4 sources)Start: 29-04-7171Iueealtrl Machine Nebulizer Machine, See Instructions, 1 EA, 0, Nebulizer Machine, Supply Start Date: 05/17/24 Status: Ordered Quantity: 1.0 Unit: EA Repeat number: 1Start: 62-98-9079Mfuuizvhp Machine Nebulizer Machine, See Instructions, 1 EA, 0, Nebulizer Machine, Supply Start Date: 05/17/24 Status: OrderedpredniSONE 5 mg oral tablet (9 sources)Start: 09-22-3472zaoyaqEQIH 5 MG 20MG FOR 1 WEEK, 15 MG FOR 1 WEEK, 10 MG FOR 1 WEEK, 5 MG FOR 1 WEEK Orally Once a day for 28 days Feb, Not-Taking Problems Active Problems Problem ClassificationProblemDateDocumented DateEpisodic/ChronicAcute and unspecified renal failure (1 source)Acute renal failure syndrome; Translations: [Acute kidney failure, unspecified]Onset: 48-43-8982FnpbhmkqIwtlilc dysrhythmias (20 sources)Unspecified atrial fibrillation; Translations: [Paroxysmal atrial fibrillation]Onset: [id number] disorders (6 sources)Encounter for adjustment and management of automatic implantable cardiac defibrillator; Translations: [Presence of automatic (implantable) cardiac defibrillator]Onset: 86-67-6643LflgkkcViuvmfgmtm heart failure; nonhypertensive (16 sources)Chronic systolic (congestive) heart failure; Translations: [Chronic systolic heart failure]Onset: 00-96-9267ChzhbxwWlyltdw on above:Noted in rafita report, 05/07/2024 pulm consult, 05/14/2024 dc summary, 05/06/2024 [...] significant for CAD s/p ADARSH, chronic HFrEF s/pAICD, PAF on coumadin, CVA, pancreatic insufficiency, ulcerative [...] cholangitis, UC, BPH, history of CVA w/ hemiparesis.Coronary atherosclerosis and other heart disease (3 sources)Coronary atherosclerosis; Translations: [Atherosclerotic heart disease of [place] coronary artery without angina pectoris]Onset: 05-06-2024 ChronicDeficiency and other anemia (1 source)Anemia; Translations: [Anemia, unspecified]Onset: 36-39-2286Vvkdjgxl Deficiency and other anemia (7 sources)Iron deficiency anemia; Translations: [Iron deficiency anemia, unspecified]Onset: 79-54-4180WpvrwlrzOqyqaubzg of lipid metabolism (1 source)Hyperlipidemia; Translations: [Hyperlipidemia, unspecified]Onset: 82-34-2603RvxxvcmAhriplgmtpffwp and diverticulitis (11 sources)Diverticulosis of sigmoid colon; Translations: [Diverticulosis of large intestine without perforation or abscess without bleeding]Onset: 02-17-2021 Resolved: 72-93-5367GbgzyblNldchotet hypertension (10 sources)Essential hypertension; Translations: [Essential (primary) hypertension]Onset: 16-02-5452JsdfxpoPkypyvk on above:Noted in 05/06/2024 H&P-78 yr old male w/ PMH of: CAD, chronic systolic HF w/ AICD, PAF, HTN, HLD, pancreatitis insuff., primary biliary cholangitis, UC, BPH, history of CVA w/ hemiparesis. Added per outpaitent CDI policy.Fluid and electrolyte disorders (1 source)Hypokalemia; Translations: [Hypokalemia]Onset: 21-54-1640Igjzwvpb Gastrointestinal hemorrhage (19 sources)Melena; Translations: [Melena]Onset: 25-48-1273WumimevxFfeipmgzastof symptoms and ill-defined conditions (10 sources)Retention of urine; Translations: [Retention of urine, unspecified] Onset: 00-31-5873TgoapcctDuwzh valve disorders (1 source)Presence of prosthetic heart valve; Translations: [PRESENCE OF PROSTHETIC HEART VALVE]Onset: 75-40-8467EsqvwkkGrhiyoojnlc of prostate (10 sources)Benign prostatic hypertrophy without outflow obstruction; Translations: [Benign prostatic hyperplasia without lower urinary tract symptoms]Onset: 60-39-7194UvjddvzCudandalgyrf with complications and secondary hypertension (9 sources)Hypertensive heart disease with congestive heart [id number] ChronicComment on above:Linnked per outpatient CDI policy.Late effects of cerebrovascular disease (1 source)Sequelae of cerebral infarction; Translations: [Unspecified sequelae of cerebral infarction]Onset: 54-87-2810FqneqajMewiory and fatigue (6 sources)Asthenia; Translations: [Weakness]Onset: 29-93-1457WdtsrqyaDzcyx aftercare (8 sources)Encounter for therapeutic drug level monitoring; Translations: [ENCOUNTER FOR THERAPEUTIC DRUG LEVEL MONITORING]Onset: 58-75-7983QxnrlzxlCksjo aftercare (2 sources)skilled nursing (current) use of anticoagulants; Translations: [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 OF ANTICOAGULANTS]Onset: 42-06-7200ZepvporeGlxql aftercare (19 sources)Long-term current use of anticoagulant; Translations: [skilled nursing (current) use of anticoagulants]Onset: 78-30-8819PdrldxxzBzhtz aftercare (1 source)Long-term current use of drug therapy; Translations: [Other 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 (current) drug therapy]Onset: 27-27-4932RciidjjpMkfjt circulatory disease (19 sources)History of cerebrovascular imcekpvx67-56-6031HxwprrglPrper circulatory disease (1 source)Low blood pressure; Translations: [Hypotension, unspecified]Onset: 02-79-3455QnzrfpvbHnhep connective tissue disease (19 sources)Adhesive capsulitis of lfadwxbn93-72-0753UlgjhnxfUcosq connective tissue disease (2 sources)Disorder of soft tissue; Translations: [Other specified soft tissue disorders]Onset: 22-40-7140VjekippuOdsrm connective tissue disease (12 sources)Swelling of lower cubz08-20-4486MkbnffzjPodrx diseases of kidney and ureters (1 source)Urinary tract obstruction; Translations: [Other obstructive and reflux uropathy]Onset: 23-81-6254QbsiifzdInfnf gastrointestinal disorders (10 sources)Incontinence of feces; Translations: [Full incontinence of feces] EpisodicOther gastrointestinal disorders (10 sources)Constipation; Translations: [Constipation, unspecified]EpisodicOther gastrointestinal disorders (2 sources)Dysphagia; Translations: [Other dysphagia]Onset: 29-53-6195Glwmjdic Other gastrointestinal disorders (2 sources)Abnormal feces; Translations: [Other fecal abnormalities]Onset: 11-19-3669ObbtcnklVcuiz gastrointestinal disorders (17 sources)Esophageal xkykqtrbx58-34-8158GzghbxobGghqo gastrointestinal disorders (17 sources)Loose vxayd64-21-0092XzwowndiMruww gastrointestinal disorders (1 source)Diarrhea; Translations: [Diarrhea, unspecified]Onset: 05-10-2024 EpisodicOther liver diseases (16 sources)Primary biliary cholangitis; Translations: [Primary biliary cirrhosis]Onset: 56-83-0067AunwpmuJtiul liver diseases (4 sources)Steatosis of liver; Translations: [Fatty (change of) liver, not elsewhere classified]Onset: 14-21-9514TnzzbjxXreek liver diseases (2 sources)Enzyme level - finding; Translations: [Abnormal levels of other serum enzymes]Onset: 14-35-0517ByjamincPmpwh liver diseases (17 sources)Elevated liver enzymes ciplv67-02-7734OixtzixhNyszo lower respiratory disease (1 source)Interstitial lung disease; Translations: [Interstitial pulmonary disease, unspecified]Onset: 66-07-2348DpeiyybNrqav lower respiratory disease (1 source)Abnormal findings on diagnostic imaging of lung; Translations: [Other nonspecific abnormal finding of lung field]Onset: 80-38-2767WdmmmcvqHvphn male genital disorders (19 sources)Disorder of xlazcbqp00-74-7960RywwflreAzorq nutritional; endocrine; and metabolic disorders (1 source)Other symptoms and signs concerning food and fluid intake; Translations: [Clinical finding (finding)]Onset: 06-45-1233LmjqzkvcAvazs nutritional; endocrine; and metabolic disorders (6 sources)Weight cjvwrwhog77-29-5714NmjjjdxsXewoj screening for suspected conditions (not mental disorders or infectious disease) (1 source)Coag./bleeding tests abnormal; Translations: [Abnormal coagulation profile]Onset: 36-46-0348ThdmydrqOhyox upper respiratory infections (1 source)Acute sinusitis, unspecified; Translations: [Acute sinusitis, unspecified]Onset: 95-26-5193IutlyumrKijxhviblu disorders (not diabetes) (17 sources)Disorder of pancreas; Translations: [Other specified diseases of pancreas]Onset: 20-04-2030PuonkawoTuiklazhh (19 sources)Bdpijsphhun25-87-4820BnxggzjEiuxfqaopo and visceral atherosclerosis (19 sources)Arteriosclerotic vascular vevydov82-40-7663ScevtsuYdalggev; pneumothorax; pulmonary collapse (1 source)Pleural effusion; Translations: [Pleural effusion, not elsewhere classified]Onset: 73-32-8964MgxrxbdyBjgkatbmt (except that caused by tuberculosis or sexually transmitted disease) (1 source)Pneumonia; Translations: [Pneumonia, unspecified organism]Onset: 85-13-4099KgejfkxyXgmuvqcq enteritis and ulcerative colitis (20 sources)Ulcerative colitis; Translations: [Ulcerative colitis, unspecified, without complications]Onset: 02-17-2021 Resolved: 39-40-7403CdiggywEvxpiyuyzpr failure; insufficiency; arrest (adult) (1 source)Acute respiratory failure; Translations: [Acute respiratory failure with hypoxia]Onset: 23-56-4287QuaoujqiGwfcx (1 source)Shock; Translations: [Shock, unspecified]Onset: 52-23-6087Sxpulkqa Spondylosis; intervertebral disc disorders; other back problems (19 sources)Degeneration of lumbar intervertebral htlg31-11-5616Kkxbzfe Unclassified (2 sources)DXOnset: 19-59-3006Hxyzobavhokt (17 sources)Body mass index 20-24 - dgoslk69-03-3548Fcljbbqpvcqw (17 sources)Ndi-sixihi57-70qaivtm58-92-0887Zocwsmgithuh (1 source)J15.69; Translations: [J15.69]Onset: 26-17-3533Nphfbxvpacot (2 sources)Longstanding persistent atrial fibrillation; Translations: [Longstanding persistent atrial fibrillation]Onset: 30-96-4550Pewocapnomhb (1 source)Ventricular tachycardia, unspecified; Translations: [Ventricular tachycardia, unspecified]Onset: 04-30-5563Bjjxdlazryiq (1 source)Other ventricular tachycardia; Translations: [Other ventricular tachycardia]Onset: 08-14-2024 Past or Other Problems Problem ClassificationProblemDateDocumented DateEpisodic/ChronicOther circulatory disease (3 sources)Personal history of transient ischemic attack (TIA), and cerebral infarction without residual deficits; Translations: [PRSNL HX OF TIA (TIA), AND CEREB INFRC W/O RESID DEFICITS]Onset: 26-55-3402TxvngpaeOeoxm circulatory disease (1 source)Hemorrhage, not elsewhere classifiedOnset: 02-17-2021 Resolved: 41-20-7704BnwvsykxPfgxv gastrointestinal disorders (1 source)Full incontinence of fecesOnset: 02-17-2021 Resolved: 73-09-6150EjjfihovXuofl gastrointestinal disorders (1 source)Constipation, unspecifiedOnset: 02-17-2021 Resolved: 88-60-9652GdlbbirwAtixykngnr (except in labor) (2 sources)Sepsis, unspecified organism; Translations: [Sepsis, unspecified organism]Onset: 06-97-2565XmfbtxkzAzwujvuhgxoz (1 source)Ventricular tachycardia, unspecified; Translations: [Ventricular tachycardia, unspecified]Onset: 84-35-1976Wfrwmxxucdsa (1 source)Other ventricular tachycardia; Translations: [Other ventricular tachycardia]Onset: 09-26-2024 Results Test NameValueInterpretationReference RangeFacilityOrders Onlyon 01-25-2025 Orders [id number] Bennie Dennis P 1945 M Date Provider Department Center 01/25/2025 KEVIN KAM [facility] [place] [facility] Family History Problem Relation Age of Onset Coronary artery disease Mother Coronary artery disease Brother Diabetes Brother Family Status - Relation Status Age at Mother Father Brother DeceasedNormalUniversMount Carmel Health SystemOrders [id number] Bennie Dennis P 1945 M Date Provider Department Center 01/25/2025 MOI PATEL [facility] [place] [facility] Family History Problem Relation Age of Onset Coronary artery disease Mother Coronary artery disease Brother Diabetes Brother Family Status - Relation Status Age at Mother Father Brother DeceasedNormalUniversMount Carmel Health SystemOffice Visiton [id number]-up [id number] Bennie Dennis P 1945 M Date Provider Department Center 01/08/2025 MOI PATEL [facility] Family History Problem Relation Age of Onset Coronary artery disease Mother Coronary artery disease Brother Diabetes Brother Family Status - Relation Status Age at Mother Father Brother Level of Service:71170 [place] OFFICE/OUTPATIENT ESTABLISHED LOW [facility]25 Ambulatory Visit SummaryAmbulatory Visit Summary BENNIE DENNIS :1945 Visit Date:01/02/2025 Ambulatory Visit Instructions Your Diagnosis Ulcerative colitis Primary biliary cholangitis Fatty liver Pancreatic insufficiency Iron deficiency anemia These Are Your Goals Prevent complications related to CHF - Not met Interventions: Keep regular scheduled follow ups with cardiology and PCM Clinic - Not done Monitor for signs and symptoms of fluid overload: edema, SOB, orthopnea, weight gain. - Not done Take medications as prescribed - Not done review educational material - Not done Prevent complications related to CAD - Not met Interventions: Consume heart healthy diet, ex: Mediterranean - Not done Keep regular scheduled appointments and testing with providers - Not done Monitor for change in status or reoccurrence of symptoms felt previously to ID - Not done Review educational material - Not done Take medications as prescribed - Not done Prevent medical complications and live a long life - Not met Interventions: Get regular exercise and consume heart healthy diet - Not done Review educational material - Not done Take medications as prescribed - Not done complete preventative testing as recommended - Not done follow up with providers as scheduled and complete testing as ordered - Not done Your Care Team Attending Physician - Debra STEWART, Eloisa Sheridan. Primary Care Physician - ZEKE TRAN CNP This Is Your Medications List Contact prescribing physician if questions or concerns aspirin (aspirin 81 mg oral capsule) atorvastatin (atorvastatin 80 mg Tab) carvedilol (carvedilol 3.125 mg Tab) cholecalciferol (Vitamin D3 10,000 intl units oral capsule) multivitamin (One-A-Day Men's Health Formula) obeticholic acid (Ocaliva 5 mg oral tablet) omeprazole (omeprazole 40 mg Cap-DR) pancrelipase (Creon 36,000 units oral delayed release capsule) sacubitril-valsartan (Entresto 24 mg-26 mg oral tablet) sotalol spironolactone (spironolactone 25 mg Tab) vedolizumab (Entyvio) warfarin (warfarin 4 mg Tab) Procedures Performed Bronchoscopy abnormal (05/11/2024), Esophagogastroduodenoscopy (03/28/2024), Flexible sigmoidoscopy(03/28/2024), Cardiac catheter, Carotid endarterectomy, Colonoscopy. Discharge Vitals Heart Rate (Peripheral) 67 Blood Pressure 109/70 Height 172 cm Height 68 in Weight 59.7 kg Weight 131.616 lb BMI 20.18 What to do next Scheduled Follow-Up Appointments Tuesday 10:00 AM EST With: ZEKE TRAN CNP Where: [address] [address]25 11:00 AM EDT With: Where: [address] [address]- Medications What How Much When Instructions Unchanged aspirin (aspirin 81 mg oral capsule) By Mouth Every 24 hours Contact prescribing physician if questions or concerns Unchanged atorvastatin (atorvastatin 80 mg Tab) See instructions TAKE 1 TABLET DAILY Contact prescribing physician if questions or concerns Unchanged carvedilol (carvedilol 3.125 mg Tab) 1 Tablets By Mouth 2 times a day Contact prescribingphysician if questions or concerns Unchanged cholecalciferol (Vitamin D3 10,000 intl units oral capsule) 1 Capsules By Mouth Every dayContact prescribing physician if questions or concerns Unchanged multivitamin (One-A-Day Men's Health Formula) 1 Tablets By Mouth Every day Contact prescribing physician if questions or concerns Unchanged obeticholic acid (Ocaliva 5 mg oral tablet) By Mouth Every day Contact prescribing [...] day ON HOLD UNTIL SEEN BY [facility] D/ C Contact prescribing physician if questions or concerns Unchanged sotalol 120 Milligram By Mouth 2 times a day Managed by Dr. Reyes Contact prescribing physician if questions or concerns Unchanged spironolactone (spironolactone 25 mg Tab) 0.5 tab By Mouth Every day ON HOLD UNTIL SEEN BY [facility] D/ C Contact prescribing physician if questions or concerns Unchanged vedolizumab (Entyvio) See instructions IV infusion at [facility]- infusion center every 8 weeks Contact prescribing physician if questions or concerns Unchanged warfarin (warfarin 4 mg Tab) 1 Tablets By Mouth Every day Managed per [facility] Medication Management Contact prescribing physician if quest (more content not included)...[facility] CenterAmb[facility] Visit Summary Ambulatory Visit Summary BENNIE DENNIS :1945 Visit Date:01/02/2025 Ambulatory Visit Instructions Your Diagnosis Hypertension Hyperlipidemia BMI 20.0-20.9, adult Nonsmoker Presence of cardiac pacemaker These Are Your Goals Prevent complications related to CHF - Not met Interventions: Keep regular scheduled follow ups with cardiology and PCM Clinic - Not done Monitor for signs and symptoms of fluid overload: edema, SOB, orthopnea, weight gain. - Not done Take medications as prescribed - Not done review educational material - Not done Prevent complications related to CAD - Not met Interventions: Consume heart healthy diet, ex: Mediterranean - Not done Keep regular scheduled appointments and testing with providers - Not done Monitor for change in status or reoccurrence of symptoms felt previously to ID - Not done Review educational material - Not done Take medications as prescribed - Not done Prevent medical complications and live a long life - Not met Interventions: Get regular exercise and consume heart healthy diet - Not done Review educational material - Not done Take medications as prescribed - Not done complete preventative testing as recommended - Not done follow up with providers as scheduled and complete testing as ordered - Not done Your Care Team Attending Physician - ZEKE TRAN CNP Primary Care Physician - ZEKE TRAN CNP This Is Your Medications List aspirin (aspirin 81 mg oral capsule) atorvastatin (atorvastatin 80 mg Tab) carvedilol (carvedilol 3.125 mg Tab) cholecalciferol (Vitamin D3 10,000 intl units oral capsule) multivitamin (One-A-Day Men's Health Formula) obeticholic acid (Ocaliva 5 mg oral tablet) omeprazole (omeprazole 40 mg Cap-DR) pancrelipase (Creon 36,000 units oral delayed release capsule) sacubitril-valsartan (Entresto 24 mg-26 mg oral tablet) sotalol spironolactone (spironolactone 25 mg Tab) vedolizumab (Entyvio) warfarin (warfarin 4 mg Tab) Procedures Performed Bronchoscopy abnormal (05/11/2024), Esophagogastroduodenoscopy (03/28/2024), Flexible sigmoidoscopy(03/28/2024), Cardiac catheter, Carotid endarterectomy, Colonoscopy. Discharge Vitals Temperature (Oral) 36.7 ???C Heart Rate (Peripheral) 64 Respiratory Rate 18 Blood Pressure 124/78 Height 172 cm Height 68 in Weight 59.9 kg Weight 132.057 lb BMI 20.25 What to do next Scheduled Follow-Up Appointments Tuesday 2:15 PM EDT With: Debra STEWART, Eloisa Cheung Where: [facility] [address] [place] [phone]- Tuesday 10:00 AM EST With: ZEKE TRAN CNP Where: [address] [address]25 11:00 AM EDT With: Where: [address] [address]- You Need to Schedule the Following Appointments Follow Up with ZEKE TRAN CNP, FAM When: Within 3 months Comments: Chronic conditions Where: [address] [place] [phone] Business (1) Medications What How Much When Instructions Unchanged aspirin (aspirin 81 mg oral capsule) By Mouth Every 24 hours Unchanged atorvastatin (atorvastatin 80 mg Tab) See instructions TAKE 1 TABLET DAILY Unchanged carvedilol (carvedilol 3.125 mg Tab) 1 Tablets By Mouth 2 times a day Unchanged cholecalciferol (Vitamin D3 10,000 intl units oral capsule) 1 Capsules By Mouth Every day Unchanged multivitamin (One-A-Day Men's Health Formula) 1 Tablets By Mouth Every day Unchanged obeticholic acid (Ocaliva 5 mg oral tablet) By Mouth Every day Unchanged omeprazole (omeprazole 40 mg Cap-DR) 1 Capsules By Mouth Every day Unchanged pancrelipase (Creon 36,000 units oral delayed release capsule) See instructions 1 cap with meals and 1 with each snack. contents of capsule may be mixed with soft foods such as applesauce Unchanged sacubitril-valsartan (Entresto 24 mg-26 mg oral tablet) 1 Tablets By Mouth 2 times a day ON HOLD UNTIL SEEN BY [facility] D/ C Unchanged sotalol 120 Milligram By Mouth 2 times a day Managed by Dr. Reyes Unchanged spironolactone (spironolactone 25 mg Tab) 0.5 tab By Mouth Every day ON HOLD UNTIL SEEN BY [facility] D/ C Unchanged vedolizumab (Entyvio) See instructions IV infusion at [facility]- infusion center every 8 weeks Unchanged warfarin (warfarin 4 mg Tab) 1 Tablets By Mouth Every day Managed per [facility] Medication Management Allergies No Known Medication Allergies Problems Ongoing - Any problem that you are currently receiving treatment for. Adhesive capsulitis of shoulder ASCVD (arteriosclerotic cardiovascular disease) Blood in stool BMI 20.0-20.9, adult BPH with obstruction/lowe (more content not included)...[facility] Medicine Office/Clinic Noteon [phone] Medicine Office/Clinic NoteFaheywood [facility] Office/Clinic Note Chief Complaint Chronic Care follow up The patient presents for a follow-up on blood pressure management. [facility] Staff Former Dr Gar pt. Presenting today for chronic care follow up. AMW completed 11/21/24 Patient is here for follow up on hypertension. How often are you checking your blood pressure? _NO Yearly BMP: _04/2024 Patient is here for follow up on hyperlipidemia: Yearly Lipid labs: _04/2024 History of Present Illness 79-year-old male presenting with his in follow-up on blood pressure management. His blood pressure is currently well-controlled at 124/78 mmHg, and he does not require medication refills at thistime. The patient had a pacemaker placed on September 26 due to episodes of tachycardia, which caused the pacemaker to activate. He is currently on sotalol to manage his heart rate and warfarin for anticoagulation, both prescribed by his parking meter mechanic. The patient has a history of a myocardial infarction and a cerebrovascular accident 13 years ago, which necessitated the initiation of anticoagulation therapy. He is scheduled for a colonoscopy in January or February and will need to hold certain medications, including his anticoagulant, prior to the procedure. Review of Systems PHQ Score Initial Depression Screen Score: 0 SCORE - Cardiovascular: Reports well-controlled blood pressure. Reports episodes of tachycardia managed with sotalol. Physical Exam Vitals & Measurements T: 36.7 ???C(Oral) HR: 64(Peripheral) RR: 18 BP: 124/78 SpO2: 98% HT: 68 in HT: 172 cm WT: 132.057 lb WT: 59.9 kg BMI: 20.25 General: alert, no acute distress Cardiovascular: regular rate and rhythm, normal peripheral perfusion Respiratory: Lungs CTA, respirations non labored Extremities: no deformity, no trauma Neurological: oriented x 4, LOC appropriate for age speech normal Assessment/Plan 1. Hypertension (I10: Essential (primary) hypertension) - Continue monitoring blood pressure, currently well-controlled at 124/78 mmHg. - Continue carvedilol 3.125 mg one tablet BID, sotalol 120 mg one tablet BID, & sacubritil-valsartan 24mg-26 mg one po BID - Encouraged low sodium diet - F/U in 4 weeks 2. Hyperlipidemia (E78.5: Hyperlipidemia, unspecified) Stable Controlled Continue atorvastatin 80 mg one tablet po daily - F/U in 3 months 3. Presence of cardiac pacemaker (Z95.0) - Pacemaker functioning appropriately, continue current management. - Continue anticoagulation therapy with warfarin as prescribed by parking meter mechanic. - Continue sotalol for heart rate management. 4. BMI 20.0-20.9, adult (Z68.20: Body mass index [BMI] 20.0-20.9, adult) BMI 20.25 5. Nonsmoker (Z78.9: Other specified health status) Encouraged to continue as a non-smoker Follow-up With When Contact Information ZEKE TRAN CNP, FAM Within [address] [place] [phone] Business (1) Additional Instructions: Chronic conditions Patient Education Dyslipidemia Problem List/Past Medical History Ongoing Adhesive capsulitis of shoulder ASCVD (arteriosclerotic cardiovascular disease) Blood in stool BMI 20.0-20.9, adult BPH with obstruction/lower urinary tract symptoms Chronic anticoagulation Chronic systolic heart failure DDD (degenerative disc disease), lumbar Elevated liver enzymes Esophageal dysphagia Hemiparesis Hx of arterial ischemic stroke Hx of heart artery stent Hypertension Hypertensive CHF (congestive heart failure) Iron deficiency anemia Iron deficiency anemia Leg swelling Loose stools Nonsmoker Pancreatic insufficiency Paroxysmal A-fib Primary biliary cholangitis Prostate disorder Steatotic liver disease Ulcerative colitis Urine retention Ventricular tachycardia Weight gain Historical No qualifying data Procedure/Surgical History Bronchoscopy abnormal (05/11/2024), Esophagogastroduodenoscopy (03/28/2024), Flexible sigmoidoscopy(03/28/2024), Cardiac catheter, Carotid endarterectomy, Colonoscopy. Medications aspirin 81 mg oral capsule, Oral, q24hr atorvastatin 80 mg Tab, See Instructions, 3 refills carvedilol 3.125 mg Tab, 3.125 mg= 1 tab(s), Oral, BID Creon 36,000 units oral delayed release capsule, See Instructions, 3 refills Entresto 24 mg-26 mg oral tablet, 1 tab(s), Oral, BID Entyvio, See Instructions Ocaliva 5 mg oral tablet, Oral, Daily omeprazole 40 mg Cap-DR, 40 mg= 1 cap(s), Oral, Daily One-A-Day Men's Health Formula, 1 tab(s), Oral, Daily sotalol, 120 mg, Oral, BID spironolactone 25 mg Tab, 0.5 tab, Oral, Daily Vitamin D3 10,000 intl units oral capsule, 250 mcg= 1 cap(s), Oral, Daily warfarin 4 mg Tab, 4 mg= 1 tab(s), Oral, Daily Allergies No Known Medication Allergies Social History Alcohol - Denies Alcohol Use, 09/06/2023 Substance Abuse - Denies Substance Abuse, 09/06/2023 Tobacco - Denies Tobacco Use, 03/29/2024 Never (less than 100 in lifetime) Tobacco Use: (more content not included)... [facility] HospitalComment on above:Result Comment: Electronically Signed By: ZEKE TRAN CNP\Date and Time Signed: 01/02/25 10:39 EDT Gastroenterology Office/Clinic Noteon [phone] Office/Clinic NoteGastroenterology Office/Clinic Note Chief Complaint Checkup HPI Staff Patient is a(n) 79 year old male who presents today for a(n) 3 month follow up. Current GI complaints? no Still taking Entyvio? yes- next infusion is 01/16/25 Prescribed Ocaliva for PBC, recently removed from the [place] market, no longer available. Still taking?yes Taking Warfarin. Denies GLP-1 agonists. Last visit w/Dr. Hassan 10/16/24: History of Present Illness I have reviewed HPI staff note, most recent labs and imaging, I agree with the above documentation with the following additions/exceptions : pt is doing well on vedolizumab weight is stable bowel are moving normal Assessment/Plan 1. Ulcerative colitis (K51.90: Ulcerative colitis, unspecified, without complications) 2. 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 Fatty liver (K76.0: Fatty (change of) liver, not elsewhere classified) 4. Pancreatic insufficiency (K86.89: Other specified diseases of pancreas) 5. Iron deficiency anemia (D50.9: Iron deficiency anemia, unspecified) Continue vedolizumab every 8 weeks Continue Ocaliva for PBC Obtain iron studies to assess anemia Repeat colonoscopy by the end of the year Check vitamin D levels Check CRP and stool calprotectin Ocaliva Obtain bone density scan to assess for osteoporosis CT abd/pelv 05/06/24 IMPRESSION: HEPATIC STEATOSIS.SIGMOID DIVERTICULOSIS. EGD w/ Dr Hassan 03/28/24 Findings 1. [...] GRANULOMA OR DYSPLASIA. Laboratory Results CBC CMP PT PTT Basophil [...] 92.4 fL (05/10/24) Chloride: 111 mmol/L (05/12/24) [place] Absolute: 0.3 E9/L (05/10/24) CO2: 27 mmol/L (05/12/24) [place] Auto: 6.5 % (05/10/24) Creatinine: 1 mg/dL [...] High (04/02/24) TIBC: 197 mcg/dL Low (05/06/24) C-Reactive Protein: <0.1 (07/05/24) Calprotectin, Fecal: 550 High (07/06/24) Vitamin D 25 Hydroxy: 105.2 ng/mL High (04/02/24) Celiac Panel Antigliadin IgA: 4 (04/02/24) Antigliadin IgG (more content not included)...[facility] Comment on above:Result Comment: Electronically Signed By: Debra STEWART, Eloisa Purdy.br\Date and Time Signed: 01/02/2514:46 EDTReminderson [phone] Reminders From: Cathi Cruz To: Jojo Bullard; Cathi Cruz; Sent: 01/02/2025 15:18:22 EDT Show up: 04/03/2025 14:18:00 EST Subject: COLONOSCOPY Reminder Due Date/Time: 05/04/2025 14:18:00 EST Reminder/Recall CALL IN MARCH TO SCHEDULE COLONOSCOPY WITH DR HASSAN.[facility] HospitalOrders Onlyon [id number] Bennie Dennis 1945 M Date Provider Department Center 12/27/2024 Angelique-GEOVANNYMOI Hallman [facility] CARD [place] HeartVAS Family History Problem Relation Age of Onset Coronary artery disease Mother Coronary artery disease Brother Diabetes Brother Family Status - Relation Status Age at Mother Father Brother DeceasedNormalUniversity [facility] NorthAmbulatory Visit Summaryon [id number] Visit SummaryAmbulatory Visit Summary BENNIE DENNIS :1945 Visit Date:12/20/2024 Ambulatory Visit Instructions Your Diagnosis Urine retention BPH with obstruction/lower urinary tract symptoms Anticoagulated Your Care Team Attending Physician - NED Peres APRN, Tia Belcher Primary Care Physician - Cong STEWART, Pete Hooker This Is Your Medications List Contact prescribing physician if questions or concerns aspirin (aspirin 81 mg oral capsule) atorvastatin (atorvastatin 80 mg Tab) carvedilol (carvedilol 3.125 mg Tab) cholecalciferol (Vitamin D3 10,000 intl units oral capsule) multivitamin (One-A-Day Men's Health Formula) obeticholic acid (Ocaliva 5 mg oral tablet) omeprazole (omeprazole 40 mg Silviano-) pancrelipase (Creon 36,000 units oral delayed release capsule) sacubitril-valsartan (Entresto 24 mg-26 mg oral tablet) sotalol spironolactone (spironolactone 25 mg Tab) vedolizumab (Entyvio) warfarin (warfarin 4 mg Tab) Procedures Performed Bronchoscopy abnormal (05/11/2024), Esophagogastroduodenoscopy (03/28/2024), Flexible sigmoidoscopy(03/28/2024), Cardiac catheter, Carotid endarterectomy, Colonoscopy. Discharge Vitals Temperature (Tympanic) 36.8 ???C Heart Rate (Peripheral) 60 Respiratory Rate 16 Blood Pressure 112/70 Height 172 cm Height 68 in Weight 62 kg Weight 136.686 lb BMI 20.96 What to do next Scheduled Follow-Up Appointments Tuesday 10:20 AM EDT With: ZEKE TRAN CNP Where: [address] [address]- Tuesday 2:15 PM EDT With: Debra STEWART, Eloisa Cheung Where: [facility] [address] [place], [place] [address]e [address] [place] [phone]- [phone] 11:00 AM EDT With: Where: [address] [address]- You Need to Schedule the Following Appointments Follow Up with NED Peres APRN, HOSSEIN Jerez URL When: Only if needed Where: Medications What How Much When Instructions Unchanged aspirin (aspirin 81 mg oral capsule) By Mouth Every 24 hours Contact prescribing physician if questions or concerns Unchanged atorvastatin (atorvastatin 80 mg Tab) See instructions TAKE 1 TABLET DAILY Contact prescribing physician if questions or concerns Unchanged carvedilol (carvedilol 3.125 mg Tab) 1 Tablets By Mouth 2 times a day Contact prescribingphysician if questions or concerns Unchanged cholecalciferol (Vitamin D3 10,000 intl units oral capsule) 1 Capsules By Mouth Every dayContact prescribing physician if questions or concerns Unchanged multivitamin (One-A-Day Men's Health Formula) 1 Tablets By Mouth Every day Contact prescribing physician if questions or concerns Unchanged obeticholic acid (Ocaliva 5 mg oral tablet) By Mouth Every day Contact prescribing [...] a day ON HOLD UNTIL SEEN BY [facility] D/ C Contact prescribing physician if questions or concerns Unchanged sotalol 120 Milligram By Mouth 2 times a day Managed by Dr. Reyes Contact prescribing physician if questions or concerns Unchanged spironolactone (spironolactone 25 mg Tab) 0.5 tab By Mouth Every day ON HOLD UNTIL SEEN BY [facility] D/ C Contact prescribing physician if questions or concerns Unchanged vedolizumab (Entyvio) See instructions IV infusion at [facility]- infusion center every 8 weeks Contact prescribing physician if questions or concerns Unchanged warfarin (warfarin 4 mg Tab) 1 Tablets By Mouth Every day Managed per [facility] Medication Management Contact prescribing physician if questions or concerns Allergies No Known Medication Allergies Problems Ongoing - Any problem that you are currently receiving treatment for. Adhesive capsulitis of shoulder ASCVD (arteriosclerotic cardiovascular disease) Blood in stool BMI 20.0-20.9, adult BPH with obstruction/lower urinary tract symptoms Chronic anticoagulation Chronic systolic heart failure DDD (degenerative disc disease), lumbar Elevated liver enzymes Esophageal dysphagia Hemiparesis Hx of arterial ischemic stroke Hx of heart artery stent Hypertension Hypertensive CHF (congestive heart failure) Iron deficiency anemia Iron deficiency anemia Leg swelling Loose stools Nonsmoker Pancreatic insufficiency Paroxysm (more content not included)...NormalAtrium Health Mercyer [facility] HospitalUrology Office/Clinic Noteon [id number] Office/Clinic NoteUrology Office/Clinic Note Chief Complaint 6 month follow up with PVR HPI Staff Pt is a 79 year old male here for 6 month follow up with PVR Previous DX: BPH/LUTS and urinary retention PVR at [facility] 78-93ml. 06/07/24 PVR 10ml on 06/07/24 *flomax not sure if he is taking Pt denies pain/burning denies visible blood denies flank pain pt reports no urinary issues PVR: 25mL pt unable to give urine sample today History of Present Illness I have reviewed and verified the staff HPI to be accurate for this encounter. Portions of this record may have been created with voice recognition artificial intelligence software, specifically [employer], [employer] and or [employer]. Substitutions may have occurred due to the inherent limitations of voice recognition and artificial intelligence software. Review of Systems PHQ Score Initial Depression Screen Score: 0 SCORE Physical Exam Vitals & Measurements T: 36.8 ???C(Tympanic) HR: 60(Peripheral) RR: 16 BP: 112/70 HT: 172 cm HT: 68 in WT: 136.686 lb WT: 62 kg BMI: 20.96 General: Well developed, well nourished, in no acute distress. Assessment/Plan former BRYON pt 1. Urine retention (R33.9: Retention of urine, unspecified) hx of septic shock - gill placed in ICU and discharge home with Apr 2024. Previously never had anyissues, pt/ don't feel he was retaining at that time. Likely inserted for monitoring purposes. However, there was not that pt failed voiding trial inpatient, but did not have gill at the time offirst OV here. No specimen for UA today, pt voided prior to leaving home. Bladder scan IO today 25 ml. Pt feels he is overall voiding well. Does not wish to make any changes at this time. Discussed PVR w/ pt and . Advised can continue to monitor annually to ensure still voiding adequately, they decline at this time. -f/u PRN Ordered: Body Mass Index (BMI) documented 3008F Current tobacco non-user 1036F Depression Screening Negative 3352F Influenza immunization status assessed 1030F Medication list [...] <130 mm Hg (Most Recent) 3074F 2. BPH with obstruction/lower urinary tract symptoms (N40.1: Benign prostatic hyperplasia with lower urinary tract symptoms) IPSS 1 (9), QoL 0 Was placed on tamsulosin at time of UR. Pt unsure when he stopped taking medication, but has not noticed worsening of urinary sxs. see #1 Ordered: 98764 Measure Post Void residual urine and/or bladder capacity by US- non-imaging Body Mass Index (BMI) documented 3008F Current tobacco non-user 1036F Depression Screening Negative 3352F Influenza immunization status assessed 1030F Medication list [...] BP <130 mm Hg (Most Recent) 3074F 3. 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) use of anticoagulants) on warfarin inc risk of periop complications Ordered: Body Mass Index (BMI) documented 3008F Current tobacco non-user 1036F Depression Screening Negative 3352F Influenza immunization status assessed 1030F Medication list [...] BP <130 mm Hg (Most Recent) 3074F Follow-up With When Contact Information NED Peres APRN, Tia Belcher, FAM, URL Only if needed Additional Instructions: Patient Education Benign Prostatic Hyperplasia Acute Urinary Retention, Male Acute Urinary Retention, Male, [id number] Problem List/Past Medical History Ongoing Adhesive capsulitis of shoulder ASCVD (arteriosclerotic cardiovascular disease) Blood in stool BMI 20.0-20.9, adult BPH with obstruction/lower urinary tract symptoms Chronic anticoagulation Chronic systolic heart failure DDD (degenerative disc disease), lumbar Elevated liver enzymes Esophageal dysphagia Hemiparesis Hx of arterial ischemic stroke Hx of heart artery stent Hypertension Hypertensive CHF (congestive heart failure) Iron deficiency anemia Iron deficiency anemia Leg swelling Loose stools Nonsmoker Pancreatic insufficiency Paroxysmal A-fib Primary biliary cholangitis Prostate disorder Steatotic liver disease Ulcerative colitis Urine retention Ventricular tachycard (more content not included)...[facility] HospitalComment on above:Result Comment: Electronically Signed By: NED Peres APRN, [place] X\.br\Date and Time Signed: 12/20/24 09:13 Barney Garcia [id number] [id number] Bennie Dennis 1945 M Date Provider Department Center 12/19/2024 [id number], HISTORICAL CARD Marcela Michael Family History Problem Relation Age of Onset Coronary artery disease Mother Coronary artery disease Brother Diabetes Brother Family Status - Relation Status Age at Mother Father Brother DeceasedNormalUniversity of [facility] Round RockPopulation Healthon [id number] HealthPopulation Health Problems Ongoing Adhesive capsulitis of shoulder ASCVD (arteriosclerotic cardiovascular disease) Blood in stool BMI 20.0-20.9, adult BPH with obstruction/lower urinary tract symptoms Chronic anticoagulation Chronic systolic heart failure DDD (degenerative disc disease), lumbar Elevated liver enzymes Esophageal dysphagia Hemiparesis Hx of arterial ischemic stroke Hx of heart artery stent Hypertension Hypertensive CHF (congestive heart failure) Iron deficiency anemia Leg swelling Loose stools Nonsmoker Pancreatic insufficiency Paroxysmal A-fib Primary biliary cholangitis Prostate disorder Ulcerative colitis Urine retention Weight gain Historical No qualifying data Procedure/Surgical History Bronchoscopy abnormal (05/11/2024), Esophagogastroduodenoscopy (03/28/2024), Flexible sigmoidoscopy(03/28/2024), Cardiac catheter, Carotid endarterectomy, Colonoscopy. Medication List aspirin 81 mg oral capsule, Oral, q24hr atorvastatin 80 mg Tab, See Instructions, 3 refills carvedilol 3.125 mg Tab, 3.125 mg= 1 tab(s), Oral, BID carvedilol 6.25 mg Tab, 6.25 mg= 1 tab(s), Oral, BID Creon 36,000 units oral delayed release capsule, See Instructions, 3 refills Entresto 24 mg-26 mg oral tablet, 1 tab(s), Oral, BID Entyvio, See Instructions mirtazapine 30 mg oral tablet, disintegrating, 30 mg= 1 tab(s), Oral, Once a day (at bedtime), 2 refills, Not taking: Patient has not been taking Ocaliva 5 mg oral tablet, Oral, Daily omeprazole 40 mg Cap-DR, 40 mg= 1 cap(s), Oral, Daily One-A-Day Men's Health Formula, 1 tab(s), Oral, Daily sotalol, 120 mg, Oral, BID spironolactone 25 mg Tab, 0.5 tab, Oral, Daily tamsulosin 0.4 mg Cap, 0.4 mg= 1 cap(s), Oral, Daily Vitamin D3 10,000 intl units oral capsule, 250 mcg= 1 cap(s), Oral, Daily warfarin 4 mg Tab, 4 mg= 1 tab(s), Oral, Daily Allergies No Known Medication Allergies Goals and Interventions Care Plan Goal: Prevent complications related to CHF Start Date: 2024 Target: - - Status: Not met Barriers: - - Comments: - - Intervention Frequency Status Front Desk Administrator review educational material - - Not done - - Keep regular scheduled follow ups with cardiology and [facility] Clinic - - Not done - - Monitor for signs and symptoms of fluid overload: edema, SOB, orthopnea, weight gain. - - Not done - - Take medications as prescribed - - Not done - - Goal: Prevent complications related to CAD Start Date: 2024 Target: - - Status: Not met Barriers: - - Comments: - - Intervention Frequency Status Front Desk Administrator Review educational material - - Not done - - Keep regular scheduled appointments and testing with providers - - Not done - - Take medications as prescribed - - Not done - - Monitor for change in status or reoccurrence of symptoms felt previously to ID - - Not done - - Consume heart healthy diet, ex: Mediterranean - - Not done - - Goal: Prevent medical complications and live a long life Start Date: 2024 Target: - - Status: Not met Barriers: - - Comments: - - Intervention Frequency Status Front Desk Administrator Review educational material - - Not done - - complete preventative testing as recommended - - Not done - - Take medications as prescribed - - Not done - - follow up with providers as scheduled and complete testing as ordered - - Not done - - Get regular exercise and consume heart healthy diet - - Not done - -[facility] Case Information Case Priority: None Programs: -- Referral Source: Salesperson [employer] Referral Reason: Disease management Case Type: Chronic Care Management Risk Score: -- Case Status: New (November 26, 2024) Date Assigned: November 26, 2024 Assigned By: Kaiden Jackson Date Enrolled: -- Assigned Primary Personnel: Kaiden Jackson Assigned Secondary Personnel: -- Case Physician: ZEKE TRAN CNP Problems Ongoing Adhesive capsulitis of shoulder ASCVD (arteriosclerotic cardiovascular disease) Blood in stool BMI 20.0-20.9, adult BPH with obstruction/lower urinary tract symptoms Chronic anticoagulation Chronic systolic heart failure DDD (degenerative disc disease), lumbar Elevated liver enzymes Esophageal dysphagia Hemiparesis Hx of arterial ischemic stroke Hx of heart artery stent Hypertension Hypertensive CHF (congestive heart failure) Iron deficiency anemia Leg swelling Loose stools Nonsmoker Pancreatic insufficiency Paroxysmal A-fib Primary biliary cholangitis Prostate disorder Ulcerative colitis Urine retention Weight gain Historical No qualifying data Procedure/Surgical History Bronchoscopy abnormal (05/11/2024), Esophagogastroduodenoscopy (03/28/2024), Flexible sigmoidoscopy(03/28/2024), Cardiac catheter, Carotid endarterectomy, Colonoscopy. Home Medications aspirin 81 mg oral capsule, Oral, q24hr atorvastatin 80 mg Tab, See Instructions, 3 refills carvedilol 3.125 mg Tab, 3.125 mg= 1 tab(s), Oral, BID carvedilol 6.25 mg Tab, 6.25 mg= 1 tab(s), Oral, BID Creon 36,000 units oral delayed release capsule, See Instructions, 3 refills Entresto 24 mg-26 mg oral tablet, 1 tab(s), Oral, BID Entyvio, See Instructions mirtazapine 30 mg oral tablet, disintegrating, 30 mg= 1 tab(s), Oral, Once a day (at bedtime), 2 refills, Not taking: Patient has not been taking Ocaliva 5 mg oral tablet, Oral, Daily omeprazole 40 mg Cap-DR, 40 mg= 1 cap(s), Oral, Daily One-A-Day Men's Health Formula, 1 tab(s), Oral, Daily sotalol, 120 mg, Oral, BID spironolactone 25 mg Tab, 0.5 tab, Oral, [...] 09/06/2023 Tobacco - Denies Tobacco Use, 03/29/2024 Never Smokeless Tobacco Use:. Household tobacco concerns: No. Yes, 11/21/2024 Family History Acute myocardial infarction: Mother. Diabetes mellitus type 2: Brother. Heart disease: Mother. Leukemia: Father. Screenings and Assessments 12/05/24 08:00:00 Result Name Value Comment HIPPA Verified Type of Contact Telephone Information Given by Self CM Preferred Spoken Language Israeli CM Preferred Written Language Israeli Preferred Communication Mode Verbal Ability to Read/Write Able to read, Able to write Preferred Salutation Foreign Language Stenographer Called No Preferred Method of Contact Cell Cell Best Time to Visit or Contact 7-10 am Best Day to Visit or Contact No preference Appointment Reminders Phone Preferred Way to Send PHI Other secured messaging Preferred Mailing Address [address] [place] [phone] Able to Read Israeli Able to read Israeli Learning Style Pref Patient Demonstration Learning Style Pref Parent/Guardian Demonstration Teaching Method Demonstration Barriers to Learning Hearing deficit Cognitive Deficit No Response to Current Year Correct Response to Current Month Correct Response to Current Time Correct Count Backward 20 to 1 Correct State Months in Reverse Order 1 Error Repeat Memory Phrase Correct [facility] Test Score Indication None or no significant cognitive impairment Lives In Single level home Number in Household 4 Sleeping Arrangement Other sleeping arrangement Sleeping Arrangement Comment sleep on the couch in the living room Support System Spouse/Significant other, Family member(s), Cultural/Spiritual community Primary Architectural Examiner of Home Medication Self Medication Adherence Method Caregiver/Family fills pillbox Current DME at Home No Currently Receiving Skilled Services No Skilled Service Needs Anticipated No Barriers to Care None Home Barriers None Employment Status Retired Financial Issues None Sources of Income Pension, Social Security Disabil (more content not included)...[facility]36on [id number] Reyes Deborah he can increase sotalol to 120mg twice a day Get New [place] for iOS ? Moi Reyes Deborah so 1.5 pills twice a day Spoke to patient . Advised her of the increase of the Sotalol. verbalized understandingNormalUniversity of Baylor Scott & White Medical Center – Round RockOffice Visiton [id number] Bennie Dennis 1945 M Date Provider Department Center 11/27/2024 MOI PATEL [facility] Family History Problem Relation Age of Onset Coronary artery disease Mother Coronary artery disease Brother Diabetes Brother Family Status - Relation Status Age at Mother Father Brother Level of Service:59651 [place] OFFICE/OUTPATIENT ESTABLISHED LOW [facility]DM [facility]Ambulatory Visit Summaryon 10-16-2024 Ambulatory Visit SummaryAmbulatory Visit Summary BENNIE DENNIS :1945 Visit Date:10/16/2024 Ambulatory Visit Instructions Your Diagnosis Ulcerative colitis Primary biliary cholangitis Fatty liver Pancreatic insufficiency Iron deficiency anemia Your Care Team Attending Physician - Debra [...] mirtazapine (mirtazapine 15 mg oral tablet, disintegrating) mirtazapine (mirtazapine 30 mg oral tablet, disintegrating) multivitamin (One-A-Day Men's Health Formula) obeticholic acid (Ocaliva 5 mg oral tablet) pancrelipase (Creon 36,000 units oral delayed release capsule) sacubitril-valsartan (Entresto 24 mg-26 mg oral tablet) spironolactone (spironolactone 25 mg Tab) tamsulosin (tamsulosin 0.4 mg Cap) vedolizumab (Entyvio) warfarin (warfarin 4 mg Tab) Procedures Performed Bronchoscopy abnormal (05/11/2024), Esophagogastroduodenoscopy (03/28/2024), Flexible sigmoidoscopy(03/28/2024), Cardiac catheter, Carotid endarterectomy, Colonoscopy. Discharge Vitals Heart Rate (Peripheral) 64 Blood Pressure 114/60 Height 172 cm Height 68 in Weight 59.1 kg Weight 130.293 lb BMI 19.98 What to do next Scheduled Follow-Up Appointments Tuesday 11:00 AM EDT With: Where: [facility] [address] [place] [address]- Tuesday 9:40 AM EDT With: SWETHA COLLIER PA-C Where: [facility] [address] [place] [address]- Tuesday 2:40 PM EDT With: Cong STEWART, Pete Hooker Where: [facility] [place] [address] [place] [address]- Tuesday 2:15 PM EDT With: Debra STEWART, Eloisa Cheung Where: [facility] [address] [place] [address] [address]- You Need to Complete the Following C-Reactive Protein, Blood, Routine collect, 10/16/24, Order for future visit, Lab Collect, Ulcerative colitis Primary biliary cholangitis Fatty liver Pancreatic insufficiency, Not Required, Print Label By Order Location Calprotectin, Fecal, Stool, Routine collect, 10/16/24, Order for future visit, Nurse collect, Ulcerative colitis Primary biliary cholangitis Fatty liver Pancreatic insufficiency, Not Required, Print Label By Order Location Comprehensive Metabolic Panel, Blood, Routine collect, 10/16/24, Order for future visit, Lab Collect, Ulcerative colitis Primary biliary cholangitis Fatty liver Pancreatic insufficiency, Not Required, Print Label By Order Location Ferritin, Blood, Routine collect, 10/16/24, Order for future visit, Lab Collect, Ulcerative colitis Primary biliary cholangitis Fatty liver Pancreatic insufficiency, Not Required, Print Label By Order Location Iron Level, Blood, Routine collect, 10/16/24, Order for future visit, Lab Collect, Ulcerative colitis Primary biliary cholangitis Fatty liver Pancreatic insufficiency, Not Required, Print LabelBy Order Location TIBC Calculated, Blood, Routine collect, 10/16/24, Order for future visit, Lab Collect, Ulcerative colitis Primary biliary cholangitis Fatty liver Pancreatic insufficiency, Not Required, Print Label By Order Location Vitamin D 25 Hydroxy, Blood, Routine collect, 10/16/24, Order for future visit, Lab Collect, Ulcerative colitis Primary biliary cholangitis Fatty liver Pancreatic insufficiency, Not Required, Print Label By Order Location BD Bone Density DEXA, 10/16/24, Routine, Order for Future Visit, Transport Mode: Ambulatory, Reason: skilled nursing medication use, Reason: IBD, Ulcerative colitis Primary biliary cholangitis Fatty liver Pancreatic insufficiency, No, pp_set_radiology_subspecialty, Require... Medications What How Much When Why Instructions [...] oral capsule) 1 Capsules By Mouth Every dayContact prescribing physician if questions or concerns Unchanged mirtazapine (mirtazapine 15 mg oral tablet, disintegrating) 1 Tablets By Mouth Once a day(at bedtime) Ulcerative colitis Primar (more content not included)...[facility] HospitalGastroenterology Office/Clinic Note on [id number] Office/Clinic NoteGastroenterology Office/Clinic Note Chief Complaint Check up HPI Staff EST, 79 year old male who presents today for a 3 month follow-up. Blood thinner- Warfarin -Entyvio started 05/2024- j3yjpis -Ocaliva started 07/2024 -tried Ursodiol, didn't tolerate, Iqirvo denied d/t needing t/f of Ocaliva -Creon for pancreatic insufficiency Last visit w/ Dr Hassan History of present illness pt is doing well on vedo gained several pounds bowel movements are better working with PT eating well Assessment/Plan 1. Ulcerative colitis (K51.90: Ulcerative colitis, [...] discuss maintenance and repeat colonoscopy next visit CT abd/pelv 05/06/24 IMPRESSION: HEPATIC STEATOSIS.SIGMOID DIVERTICULOSIS. EGD w/ Dr Hassan 03/28/24 Findings 1. [...] GRANULOMA OR DYSPLASIA. Laboratory Results CBC CMP PT PTT Basophil [...] 92.4 fL (05/10/24) Chloride: 111 mmol/L (05/12/24) [place] Absolute: 0.3 E9/L (05/10/24) CO2: 27 mmol/L (05/12/24) [place] Auto: 6.5 % (05/10/24) Creatinine: 1 mg/dL [...] High (04/02/24) TIBC: 197 mcg/dL Low (05/06/24) Celiac Panel Antigliadin IgA: 4 (04/02/24) Antigliadin Ig (04/02/24) Endomysial Antibody IgA: Negative (04/02/24) IgA Quant: 228 (04/02/24) t-Transglutaminase IgA: <2 (04/02/24) t-Transglutaminase IgG: <2 (04/02/24) Stool Studies Calprotectin, Fecal: 550 High (07/06/24) Campylobacter group: Not Detected (05/10/24) Clostridium difficile by PCR: NEGATIVE1 (05/10/24) Norovirus GI/GII: Not Detected (05/10/24) Occult Bld Stl: Positive1 Abnormal (05/07/24) Ova/Para Exam Rt: Final report ( (more content not included)...Berger HospitalComment on above:Result Comment: Electronically Signed By: Debra STEWART, Eloisa Cheung\.br\Date and Time Signed: 10/16/2513:55 EDTFollow-Upon [id number] Bennie Dennis 1945 M Date Provider Department Center 10/08/2024 ANGELA JOY [facility] Family History Problem Relation Age of Onset Coronary artery disease Mother Coronary artery disease Brother Diabetes Brother Family Status - Relation Status Age at Mother Father Brother Level of Service:38163 [place] OFFICE/OUTPATIENT ESTABLISHED [facility] HospitalHPon [id number] Electrophysiology Consult Note [place] Cardiology [facility] Reason for visit: HPI: Bennie Dennis [...] stent. Most recently he was admitted to [facility] from 05/06/2024 to 05/14/2024 with hypoxic respiratory [...] Diagnosis Date Abnormal ECG Arrhythmia Atrial fibrillation ([facility] CHF (congestive heart failure) ([facility]) Coronary artery disease Pericardial effusion PSH: Past Surgical History: Procedure Laterality Date CARDIAC CATHETERIZATION INSERT / REPLACE / REMOVE PACEMAKER SH: Social Drivers of Health Tobacco Use: Medium Risk (08/07/2024) Patient History Smoking Tobacco Use: Former Smokeless Tobacco Use: Unknown Passive Exposure: Not on file Alcohol Use: Not on file Financial Resource Strain: Not on file Food Insecurity: Not on file Transportation Needs: Not on file Physical Activity: Not on file Stress: Not on file Social Connections: Not on file Intimate Partner Violence: Unknown (06/09/2023) [place] Safety & Environment Fear of Current or Ex-Partner: Not on file Emotionally Abused: Not on file Physically Abused: Not on file Sexually Abused: Not on file Physically or Sexually Abused: Not on file Depression: Not on file Housing Stability: Not on file Utilities: Not on file Health Literacy: Not on file Allergies: No Known Allergies Weight: 59kg Visit Vitals Smoking Status Former Meds: No current facility-administered medications on file prior to encounter. Current Outpatient Medications on File Prior to Encounter Medication Sig Dispense Refill aspirin 81 mg EC tablet in the morning. atorvastatin (Lipitor) 80 mg tablet Take 80 mg by mouth at bedtime. cholecalciferol (Vitamin D3) 25 MCG (1000 units) tablet Take by mouth in the morning. Creon 36,000-114,000- 180,000 unit capsule,delayed release(DR/EC) capsule Take 1 capsule by mouth. Daily-Cira, with folic acid, 400 mcg tablet Take 1 tablet by mouth in the morning. mirtazapine (Remeron Alisha-Tab) 15 mg disintegrating tablet Take 15 mg by mouth at bedtime. obeticholic acid (Ocaliva) 5 mg tablet Take 5 mg by mouth in the morning. omega-3 (Fish OiL) 60-90-500 mg capsule Take by mouth in the morning. sacubitriL-valsartan (Entresto) 24-26 mg tablet every 12 (twelve) hours. spironolactone (Aldactone) 25 mg tablet TAKE ONE-HALF (1/2) TABLET DAILY 45 tablet 3 warfarin (Coumadin) 4 mg tablet warfarin 4 mg tablet 90 tablet 1 balsalazide (Colazal) 750 mg capsule balsalazide 750 mg capsule TAKE 3 CAPSULES BY MOUTH TWICE DAILY carvedilol (Coreg) 12.5 mg tablet Take 1 tablet (12.5 mg) by mouth with breakfast and with evening meal. (Patient not taking: Reported on 09/26/2024) 180 tablet 3 enoxaparin (Lovenox) 30 mg/0.3 mL syringe Inject 30 mg under the skin in the morning. (Patient not taking: Reported on 09/26/2024) mesalamine (Lialda) 1.2 gram EC tablet Take by mouth in the morning. tamsulosin (Flomax) 0.4 mg 24 hr capsule Take 0.4 mg by mouth in the morning. (Patient not taking: Reported on 09/26/2024) ROS: Review of Systems Musculoskeletal: Positive for [...] heard Extremities: no cyanosis, no edema, no p (more content not included)...[facility] CenterNURSNOTEon [id number] educated pt on d/c instructions. This included: site care, limited physical activity, resume normal diet, future appointments, medications, and moderate sedation instructions. RN educated pt on when to notify physician and when to go to the hospital. RN provided pt with arm sling and educated pt on importance of not lifting arm above 90 degrees, weight bearing more than 5lbs, and driving for the next 4 weeks. RN encouraged pt to voice any questions or concerns, and answered any questions or concerns if pt verbalized. Pt was wheeled off of unit with all of belongings.[facility] HospitalNURSNOTECHG wipes and betadine nasal swabs completed.[facility]36on [phone]'s returned my call to confirm she received my message and understands new medication dosage.[facility]36LM on patient's 's VM. I asked her to call me back to make sure she received my message. Both doses of carvedilol sent to [facility] HospitalProvider Letteron [phone] LetterProvider Letter September 13, 20[address] [place] [id number] : 1945 Dear Bennie, We have been trying to reach you with no success. It is important that you return our call regarding rescheduling your previous appointment on October [address] Hassan. Please call the office to reschedule your appointment upon receiving this letter. Also, at the time of your call, please provideus with your current information. Thank you for your prompt attention to this matter. Sincerely, [facility] [phone] Hospital36on [phone] with patient's and he's still taking carvedilol 12.5mg bid. She said his BP doesn't go under 100 systolic. Says the other day it was as high as 112. He does complain of being lightheaded all the time . Any suggestions?[facility]36on [phone]. Ross called with concerns when he saw this patient in the office today. Said his BP was 106/70 HR 62. Patient's ICD has fired a few times lately. He's scheduled for Bi-V ICD upgrade with Dr. Reyes on 09/26/2024. Dr. Gar says patient is lightheaded and frail. He wanted to know if it's ok with you that he cut his carvedilol down to 6.25mg bid. Please advise. Thanks.[facility] HospitalFaheywood hospital Medicine Office/Clinic Noteon 59-23-2536Wnlonb Medicine Office/Clinic NoteFami Medicine Office/Clinic Note Chief Complaint 6m Follow [...] noted in morning post-medication, prompting concern over medication- induced hypotension. - Blood pressure 100/60 raises hypotension concerns. - History of cardiovascular conditions, including ASCVD and heart failure. - Overexertion linked to pacemaker/defibrillator events. - Fluid in lungs noted upon [...] level of consciousness appropriate for age, CN II- XII intact, motor strength equal & normal bilaterally, speech normal Abdomen: Soft, Non-tender, Non-distended, + Bowel sounds Assessment/Plan 1. Chronic systolic heart failure (I50.22: Chronic systolic (congestive) heart failure) Denies shortness of breath. Follows with cardiology Having his pacemaker changed in a month Still very dizzy Concerned with the low blood pressure. Have reached out to his parking meter mechanic to recommend a reduction in Coreg Cardiology will reach out to the patient. I agree with keeping the patient on Entresto. 2. Hemiparesis (G81.90: Hemiplegia, unspecified affecting unspecified side) Stable 3. Hypertensive CHF (congestive heart failure) (I11.0: Hypertensive heart disease with heart failure) Blood pressure is on the lower side at this time. 4. ASCVD (arteriosclerotic cardiovascular disease) (I25.10: Atherosclerotic heart disease of nativecoronary artery without angina pectoris) Continue on aspirin [...] of communicating with Dr. Abreu about the pacemaker/defibrillator functionality and need for a replacement due to senior manufacturing technician reported battery shortcomings. I highlighted the risks of driving in relation to potential device activation. Lastly, I notedthe presence of fluid in the patient's lungs, discussing ongoing monitoring of his respiratory condition and likely need to adjust heart failure medications. All planned changes and monitoring strategies were outlined clearly to ensure patient understanding and compliance. Follow-up No qualifying data available Problem List/Past Medical History Ongoing (more content not included)...[facility] HospitalComment on above: Result Comment: Electronically Signed By: Cong STEWART, Pete Hooker\.br\Date and Time Signed: 08/30/24 10:28 EDTTelephoneon [id number] Bennie Dennis 1945 Date Provider Department Center 08/30/2024 CINDY TRUJILLO ROBERTO [place] Family History Problem Relation Age of Onset Coronary artery disease Mother Coronary artery disease Brother Diabetes Brother Family Status - Relation Status Age at Mother Father Brother DeceasedNormalUniversMount Carmel Health SystemOffice Visiton [id number]-up [id number] Bennie Dennis 1945 M Date Provider Department Center 08/07/2024 241MOI TRINH Family History Problem Relation Age of Onset Coronary artery disease Mother Coronary artery disease Brother Diabetes Brother Family Status - Relation Status Age at Mother Father Brother Level of Service:12758 [place] OFFICE/OUTPATIENT NEW MODERATE MDM 45 MINUTESNormal [facility] CenterOrders Onlyon [id number] [id number] Bennie Dennis 1945 M Date Provider Department Center 08/07/2024 Huan5-RMOÁN CREWS CARD [place] [facility] Family History Problem Relation Age of Onset Coronary artery disease Mother Coronary artery disease Brother Diabetes Brother Family Status - Relation Status Age at Mother Father Brother DeceasedNormalUniMemorial Health SystemPulmonary Function Studieson [id number] Function StudiesPulmonary Function Studies PULMONARY FUNCTION TEST: 07/11/2024 REFERRING [...] BY: Pooja Stephens M.D. ca Dictated: 07/17/2024 [id number] Transcribed: 07/18/2024Berger HospitalComment on above:Result Comment: Electronically Signed By: Angelo STEWART, Pooja X\.br\Date and Time Signed: 07/23/24 14:35 EDTCT Chest w/o High Resolutionon [id number] Chest w/o High ResolutionExam Date/Time: 07/11/2024 15:09 EDT Reason for Exam: [...] Christos Valencia MD Transcribed by: BRIAN Technologist: Kamran CLEANINGCrystal [facility] Calprotectin, Fecalon 05-22-3975Dvywomtoxinw (Stl) [Mass/Mass]550 mcg/gmHigh 0-120[facility] Orthopedic CenterComment on above:Result Comment: Concentration Interpretation Follow-Up < 5 - 50 ug/g Normal None >50 -120 ug/g Borderline Re-evaluate in 4-6 weeks >120 ug/g Abnormal Repeat as clinically indicated Performed at: [facility] [id number] MD Anthony Zamoraformed By: #### [id number] #### [facility] [address] [place], [place] [address]Iveykfvtmw Visit Summaryon 94-05-7583Xxewnmwavf Visit Summary Ambulatory Visit Summary BENNIE DENNIS :1945 Visit Date:07/05/2024 Ambulatory Visit Instructions Your Diagnosis Ulcerative colitis Weight gain Primary biliary cholangitis Your Care Team Attending Physician - Eloisa Hassan MD Primary Care Physician - Pete Gar [...] mg Tab) Procedures Performed Bronchoscopy abnormal (05/11/2024), Esophagogastroduodenoscopy (03/28/2024), Flexible sigmoidoscopy(03/28/2024), Cardiac catheter, Carotid endarterectomy, Colonoscopy. Discharge Vitals [...] AM EDT With: Pete Gar MD Where: [address] [address]- Tuesday 11:00 AM EDT With: Where: [address] [place] [address]- Tuesday 9:40 AM EDT With: SWETHA COLLIER PA-C Where: [facility] [address] [place] [address] [place] [address]- Medications What How Much When Why Instructions [...] oral capsule) 1 Capsules By Mouth Every dayContact prescribing physician if questions or concerns Unchanged mirtazapine (mirtazapine 15 mg oral tablet, disintegrating) 1 Tablets By Mouth Once a day(at bedtime) Ulcerative colitis Primary biliary cholangitis Pancreatic [...] day ON HOLD UNTIL SEEN BY CARDIO [facility] D/ C Contact prescribing physician if questions or concerns Unchanged spironolactone (spironolactone 25 mg Tab) 0.5 tab By Mouth Every day ON HOLD UNTIL SEEN BY CARDIO [facility] D/ C Contact prescribing physician if questions or concerns Unchanged tamsulosin (tamsulosin 0.4 mg Cap) 1 Capsules By Mouth Every day Contact prescribing physician if questions or concerns Unchanged vedolizumab (Entyvio) Intravenous Contact prescribing physician if questions or concerns Unchanged warfarin (warfarin 4 mg Tab) 1 Tablets By Mouth Every day Managed per [facility] Medication Management Contact prescribing physician if [...] artery stent Hypertension Hypert (more content not included)...NormalCrystal Clinic Orthopedic CenterCHEMISTRY Ordered By: SYSTEM SYSTEM on 20-19-9367EQU [Mass/Vol]mg/dLNormal<=1.9mg/dL Remisol ChemCRPon 06-51-5174GZK [Mass/Vol]mg/LNormal<=1.9[facility] Orthopedic CenterComment on above:Performed By: #### [id number] #### [facility] [address] [place], [place] [address]Cyrhyzcfkexgnruc Office/Clinic Noteon 07-05-2024 Gastroenterology Office/Clinic NoteGastroenterology Office/Clinic Note Chief Complaint 3 month follow [...] 92.4 fL (05/10/24) Chloride: 111 mmol/L (05/12/24) [place] Absolute: 0.3 E9/L (05/10/24) CO2: 27 mmol/L (05/12/24) [place] Auto: 6.5 % (05/10/24) Creatinine: 1 mg/dL [...] Hx of arterial ischemic (more content not included)...NormalCrystal Clinic Orthopedic CenterComment on above:Result Comment: Electronically Signed By: Debra STEWART, Eloisa Cheung\.br\Date and Time Signed: 07/05/2508:48 EDTAcid Fast Smear+Cultureon 37-88-0220Ziihlquahhg observation Acid fast stain Nom (Unsp spec)NegativeInvalid Interpretation [facility] MiamisburgComment on above:Performed By: #### [id number] #### [facility] [address] [place], [place] [address]Bdsjotsiwljbp sp Org specific cx Ql (Unsp spec)NegativeInvalid Interpretation [facility] MiamisburgComment on above:Result Comment: No acid fast bacilli isolated after 6 weeks. Performed at: [facility] [address] [place] [id number] PhD Brandyn MaderaPerformed By: #### [id number] #### [facility] [address] [place], [place] [address]Lmdnhnzyuhw observation Acid fast stain Nom (Unsp spec)Negative Invalid Interpretation [facility] MiamisburgComment on above:Performed By: #### [id number] #### [facility] [address] [place], [place] [address]Wvdgeglrdxhes sp Org specific cx Ql (Unsp spec)NegativeInvalid Interpretation [facility] MiamisburgComment on above:Result Comment: No acid fast bacilli isolated after 6 weeks. Performed at: [address] [id number] PhD Brandyn Terryformed By: #### [id number] #### [facility] [address] [place] [address]Bscgutbj preparation Nom (Unsp spec)ConcentrationInvalid Interpretation [facility] MiamisburgComment on above:Result Comment: Performed at: [address] [id number] PhD Brandyn MaderaPerformed By: #### [id number] #### [facility] [address] [place], [place] [address]Bwbpaurb preparation Nom (Unsp spec)ConcentrationInvalid Interpretation [facility] MiamisburgComment on above:Result Comment: Performed at: [address] [id number] PhD Brandyn Terryformed By: #### [id number] #### [facility] [address] [place] [address]Giaamgqbqj Visit Summaryon 44-48-2446Kcvoeltgyp Visit Summary Ambulatory Visit Summary BENNIE DENNIS :1945 Visit Date:06/07/2024 Ambulatory Visit Instructions Your Diagnosis Prostate disorder Your Care Team Attending Physician - SWETHA COLLIER PA-C Primary Care Physician - Pete Gar MD. This Is Your Medications List [facility] Prescription (Nebulizer Machine) albuterol (Albuterol (Eqv-Ventolin HFA) [...] mg Tab) Procedures Performed Bronchoscopy abnormal (05/11/2024), Esophagogastroduodenoscopy (03/28/2024), Flexible sigmoidoscopy(03/28/2024), Cardiac catheter, Carotid endarterectomy, Colonoscopy. Discharge Vitals [...] EDT With: Debra STEWART, Eloisa Cheung Where: [facility] [address] [place] [address] 2024 10:00 AM EDT With: Pete Gar MD Where: [address] [address]- Tuesday 11:00 AM EDT With: Where: [address] [address]- Tuesday 9:40 AM EDT With: SWETHA COLLIER PA-C Where: [facility] [address] [place] [id number]- Medications What How Much When Why Instructions [...] disintegrating) 1 Tablets By Mouth Once a day(at bedtime) Ulcerative colitis Primary biliary cholangitis Pancreatic [...] day ON HOLD UNTIL SEEN BY [facility] D/ C Unchanged spironolactone (spironolactone 25 mg Tab) 0.5 tab By Mouth Every day ON HOLD UNTIL SEEN BY [facility] D/ C Unchanged tamsulosin (tamsulosin 0.4 mg Cap) 1 Capsules By Mouth Every day Unchanged warfarin (warfarin 4 mg Tab) 1 Tablets By Mouth Every day Managed per [facility] Medication Management Allergies No Known Medication [...] Ulcerative colitis Patient Survey (more content not included)...[facility] Office/Clinic Noteon 44-17-1973Eaiedxp Office/Clinic NoteUrology Office/Clinic Note Chief Complaint f/u to ED [...] dc'd without Gill in place. Dc'd to [facility] 05/14/24. I did call and was told they did PVR on 05/24/24 which was 78-93ml. Was also told that staff attempted to replace Gill at one pointbecause pt was in the bathroom constantly voiding [...] rashes or suspicious lesions Assessment/Plan Dc'd from [facility] today back home w . [...] E&M of New Patient Moderate 45-59 Min 70212 2. Urine retention (R33.9: Retention of urine, unspecified) PVR at [facility] 78-93ml. PVR 10ml today. No indication to replace Gill. Ordered: E&M of New Patient Moderate 45-59 Min 68788 Other obstructive and reflux uropathy (N13.8: Other obstructive and reflux uropathy) Orders: 83085 Measure Post Void residual urine and/or bladder capacity by US- non-imaging Follow-up With When Contact Information NANDO KAY, SWETHA Azevedo, URL In 6 months [address] [place] [place] [address] Additional Instructions: Patient Education Benign [...] qualifying data Procedure/Surgical History Bronchoscopy abnormal (05/11/2024), Esophagogastroduodenoscopy (03/28/2024), Flexible sigmoidoscopy(03/28/2024), Cardiac catheter, Carotid endarterectomy, Colonoscopy. Medications Albuterol [...] intl units oral ca (more content not included)...[facility] HospitalComment on above:Result Comment: Electronically Signed By: SWETHA COLLIER PA-C.dana\Date and Time Signed: 06/07/2514:17 ESTPulmonology Office/Clinic Noteon 44-14-5815Ubhahodfmtk Office/Clinic NotePulmonology Office/Clinic Note Chief Complaint Inpatient f/u History [...] and follow up CT chest with high r esolution and re-evaluate. He has no respiratory symptoms [...] qualifying data Procedure/Surgical History Bronchoscopy abnormal (05/11/2024), Esophagogastroduodenoscopy (03/28/2024), Flexible sigmoidoscopy(03/28/2024), Cardiac catheter, Carotid endarterectomy, Colonoscopy. Medications Albuterol [...] Not taking: Medication was placed on hold [facility] D/C 05/14 until seen by cardiology Fish [...] taking: Medication was placed on hold at [facility] D/C 05/14 until seen by cardiology Vitamin [...] inactivated 02/20/2019 Recorded pneumococcal 13-valent vaccine 02/05/2019 RecordedBerger HospitalComment on above:Result Comment: Electronically Signed By: Angelo STEWARTPooja\.br\Date and Time Signed: 06/02/24 08:44 ESTAmbulatory Visit Summaryon 53-86-2304Uuctkxpuwm Visit SummaryAmbulatory Visit Summary BENNIE DENNIS :1945 Visit Date:06/01/2024 [...] g oral enteric coated tablet) multivitamin (One-A-Day NOMERMAIL[employer]'s NearDesk Formula) multivitamin with minerals (PreserVision AREDS) omega-3 polyunsaturated fatty acids (Fish Oil) pancrelipase (Creon 36,000 units oral delayed release capsule) sacubitril-valsartan (Entresto 24 mg-26 mg oral tablet) spironolactone (spironolactone 25 mg Tab) warfarin (warfarin 4 mg Tab) Procedures Performed Bronchoscopy abnormal (05/11/2024), Esophagogastroduodenoscopy (03/28/2024), Flexible sigmoidoscopy(03/28/2024), Cardiac catheter, Carotid endarterectomy, Colonoscopy. Discharge Vitals Heart Rate (Peripheral) 86 Respiratory Rate 14 Blood Pressure 68/41 What to do next Scheduled Follow-Up Appointments Tuesday 10:00 AM EST With: Pooja Stephens MD Where: [facility] 2024 10:20 AM EST With: SWETHA COLLIER PA-C Where: [facility] [address] [place] [address]- 2024 9:15 AM EDT With: Debra STEWART, Eloisa Cheung Where: [facility] [address] [place] [address]- 2024 10:00 AM EDT With: Cong STEWART, Pete Hooker Where: [address] [address]- Tuesday 11:00 AM EDT With: Where: [address] [address]- You Need to Complete the Following C-Reactive Protein, Blood, Routine collect, 06/01/24, Order for future visit, Lab Collect, Ulcerative colitis Primary biliary cholangitis Pancreatic insufficiency Leg swelling, Not Required, Print Label By Order Location Calprotectin, Fecal, Stool, Routine collect, 06/01/24, Order for future visit, Nurse collect, Ulcerative colitis Primary biliary cholangitis Pancreatic insufficiency Leg swelling, Not Required,Print Label By Order Location Medications What How Much When Why Instructions New mirtazapine (mirtazapine 15 mg oral tablet, disintegrating) 1 Tablets By Mouth Once a day (at bedtime) Ulcerative colitis Primary biliary cholangitis Pancreatic insufficiency Leg swelling Pickup at [facility]/pharmacy #5494 Unchanged albuterol (Albuterol (Eqv-Ventolin HFA) 90 mcg/ [...] oral capsule) 1 Capsules By Mouth Every dayContact prescribing physician if questions or concerns Unchanged [...] (PreserVision AREDS) See instructions take twice daily Contactprescribing physician if questions or concerns Unchanged omega-3 [...] or concerns Unchanged sacubitril-valsar (more content not included)...[facility] HospitalGastroenterology Office/Clinic Noteon 85-19-5566Goiefmmdfnktgqjb Office/Clinic NoteGastroenterology Office/Clinic Note Chief Complaint follow up inpatient HPI Staff EST, 78 year old male who I've previously seen as a consult on 05/09/24, presents today for a followup inpatient. -Patient has stopped steriods and Stelara. -WARFARIN DAILY. feeling weak and dizzy. BP low 68/41 patient states he does not have an appetite at all. [facility] Consult w/ Dr hassan History of Present [...] 92.4 fL (05/10/24) Chloride: 111 mmol/L (05/12/24) [place] Absolute: 0.3 E9/L (05/10/24) CO2: 27 mmol/L (05/12/24) [place] Auto: 6.5 % (05/10/24) Creatinine: 1 mg/dL [...] or blood in s (more content not included)...Berger HospitalComment on above:Result Comment: Electronically Signed By: Debra STEWART, Eloisa Cheung\.br\Date and Time Signed: 06/01/2509:33 ESTOffice Visiton 60-92-4945Hekwyx-up [id number] Bennie Dennis 1945 M Date Provider Department Center 05/28/2024 ANGELA JOY ROBERTO [place] [facility] Family History Problem Relation Age of Onset Coronary artery disease Brother Diabetes Brother Family Status - Relation Status Age at Brother Level of Service:37581 [place] OFFICE/OUTPATIENT ESTABLISHED MOD MDM 30 [facility] HospitalAlanine aminotransferase [Enzymatic activity/volume] in Serum or PlasmaOrdered By: Gary Madsen on 68-18-7696AMW [Catalytic activity/Vol]Alanine aminotransferase [Enzymatic activity/volume] in Serum or PlasmaLogan Regional Medical Center7-52[facility] YoungstownAlbumin [Mass/volume] in Serum or Plasma by Bromocresol green (BCG) dye binding methoOrdered By: Gary Madsen on 51-64-0631Sfdmvoo BCG dye [Mass/Vol]Albumin [Mass/volume] in Serum or Plasma by Bromocresol green (BCG) dye binding methoLow3.5-5.7FHolmes County Joel Pomerene Memorial HospitalAlkaline phosphatase [Enzymatic activity/volume] in Serum or PlasmaOrdered By: Gary Madsen on 72-08-4004WPQ [Catalytic activity/Vol] Alkaline phosphatase [Enzymatic activity/volume] in Serum or Cygtfb81-660 [facility] - YoungstownAppearance of UrineOrdered By: Gary Madsen on 88-91-5198Kwsvhxedec (U)Urine appearanceAbnormalCMain Campus Medical CenterAspartate aminotransferase [Enzymatic activity/volume] in Serum or PlasmaOrdered By: Gary Madsen on 83-79-3195ZHM [Catalytic activity/Vol] Aspartate aminotransferase [Enzymatic activity/volume] in Serum or PlasmaHigh 13-39[facility] Hospital - YoungstownB-Type Natriuretic Peptideon 05-23-2024 Natriuretic peptide B (Bld) [Mass/Vol]164.0 pg/mLHigh5-100[facility] Physician GroupComment on above:Result Comment: PERFORMED BY: [place] [address] PATHOLOGIST APPLICATION DEVELOPMENT PROJECT MANAGER MILKA PEDERSON M.D.Performed By: #### PT, MG, CK, BNP, CMP, HS TROP, PTT #### [place] [address] USABacteria [Presence] in Urine by AutomatedOrdered By: Gary Madsen on 47-63-3415Dlsdlife Auto Ql (U)Bacteria [Presence] in Urine by AutomatedMercy [facility] HospitalBasophils Auto (Bld) [#/Vol]Ordered By: Gary Madsen on 30-55-8394Qdyzsujfy (Bld) [#/Vol]Automated basophil count0.0-0.2FHolmes County Joel Pomerene Memorial HospitalBasophils/100 WBC Auto (Bld)Ordered By: Gary Madsen on 47-72-3837Mctbdwtog/100 WBC (Bld)Automated basophil %.[facility] YoungstownBilirubin Test strip Ql (U)Ordered By: Gary Madsen on 86-78-0345Wztaqwdws Ql (U)Bilirubin.total [Presence] in Urine by Test stripNegativeSelect Medical Specialty Hospital - YoungstownBilirubin.total [Mass/volume] in Serum or PlasmaOrdered By: Gary Madsen on 05-23-2024 Bilirubin [Mass/Vol]Bilirubin.total [Mass/volume] in Serum or Plasma0.3-1.0 [facility] YoungstownCalcium [Mass/volume] in Serum or PlasmaOrdered By: Gary Madsen on 85-37-8074Efzuhqn [Mass/Vol]Calcium [Mass/volume] in Serum or Plasma8.6-10.3FHolmes County Joel Pomerene Memorial HospitalCalcium oxalate crystals [Presence] in Urine by Computer assisted methodOrdered By: Gary Madsen on 25-14-3290Zneujrf oxalate crystals Computer assisted Ql (U)Calcium oxalate crystals [Presence] in Urine by Computer assisted methodSelect Medical Specialty Hospital - YoungstownCarbon dioxide, total [Moles/volume] in Serum or PlasmaOrdered By: Gary Madsen on 00-62-2932NI0 [Moles/Vol]Carbon dioxide, total [Moles/volume] in Serum or AkqaorLipt46.0-31.0[facility] YoungstownChloride [Moles/volume] in Serum or PlasmaOrdered By: Gary Madsen on 05-23-2024 Chloride [Moles/Vol]Chloride [Moles/volume] in Serum or Ityycc70-515OiruvnmwkSelect Medical Specialty Hospital - YoungstownColor Auto (U)Ordered By: Gary Madsen on 05-23-2024 Color (U)Color of Urine by AutoYellowSelect Medical Specialty Hospital - YoungstownComplete Blood Count Auto Diffon 29-92-2729Xtegctbwe (Bld) [#/Vol]0.1 10*3/uLNormal 0.0-0.2The [facility] Physician GroupComment on above:Result Comment: PERFORMED BY: [place] [address] PATHOLOGIST APPLICATION DEVELOPMENT PROJECT MANAGER MILKA PEDERSON M.D.Performed By: #### CBC #### [facility] [address] [place] [address] USABasophils/100 WBC (Bld)1.0 %Normal.The [facility] Physician GroupComment on above:Performed By: #### CBC #### [facility] [address] [place] [address] USAEosinophils (Bld) [#/Vol]0.0 10*3/uLNormal0.0-0.45The [facility] Physician GroupComment on above:Performed By: #### CBC #### [facility] [address] [place] [address] USAEosinophils/100 WBC (Bld)0.5 %Normal.The [facility] Physician GroupComment on above:Performed By: #### CBC #### [place] [address] USAErythrocyte distribution width (RBC) [Ratio]17.6 %High 12.0-14.8The [facility] Physician GroupComment on above:Performed By: #### CBC #### [place] [address] USAHematocrit (Bld) [Volume fraction]34.1 %Low38.8-50.0The [facility] Physician GroupComment on above:Performed By: #### CBC #### [place] [address] USAHemoglobin (Bld) [Mass/Vol]11.4 g/dLLow13.0-17.0The [facility] Physician GroupComment on above:Performed By: #### CBC #### [place] [address] USALymphocytes (Bld) [#/Vol]1.9 10*3/uLNormal1.00-4.8The [facility] Physician GroupComment on above:Performed By: #### CBC #### [place] [id number] USALymphocytes/100 WBC (Bld)31.1 %Normal.The [facility] Physician GroupComment on above:Performed By: #### CBC #### [place] [id number] USAMCH (RBC) [Entitic mass]31.6 pmBoqkzd01.5-35.2The [facility] Physician GroupComment on above:Performed By: #### CBC #### [place] [address] USAMCV (RBC) [Entitic vol]94.3 gHIuilok68.5-101The [facility] Physician GroupComment on above:Performed By: #### CBC #### [place] [address] USAMean Corpuscular HGB Conc33.5 g/vOMzmmtv72.5-35.6The [facility] Physician GroupComment on above:Performed By: #### CBC #### [place] [address] USAMonocytes (Bld) [#/Vol]0.6 10*3/uLNormal0.0-0.8The [facility] Physician GroupComment on above:Performed By: #### CBC #### [place] [address] USAMonocytes/100 WBC (Bld)22.53 %High0.00-20.00The [facility] Physician GroupComment on above:Result Comment: For adults in ED, MDW > 20.0 may be associated with a higher risk of sepsis during the first 12 hrs of hospital admissionPerformed By: #### CBC #### [place] [address] USAMonocytes/100 WBC (Bld)8.8 %Normal.The [facility] Physician GroupComment on above:Performed By: #### CBC #### [place] [address] USANeutrophils (Bld) [#/Vol]3.7 10*3/uLNormal1.8-7.7The [facility] Physician GroupComment on above:Performed By: #### CBC #### [place] [address] USANeutrophils/100 WBC (Bld)58.6 %Normal.The [facility] Physician GroupComment on above:Performed By: #### CBC #### [place] [address] USANRBC%0.1 /100{WBC}Normal0-0.5The [facility] Physician Group Comment on above:Performed By: #### CBC #### [place] [address] USAPlatelet mean volume (Bld) [Entitic vol]8.6 fLNormal 6.6-10.1The [facility] Physician GroupComment on above:Performed By: #### CBC #### [facility] [address] [place] [address] USAPlatelets (Bld) [#/Vol]228 10*3/fNCulomm898-848Log [facility] Physician GroupComment on above:Performed By: #### CBC #### [place] [address] USARBC (Bld) [#/Vol]3.62 10*6/uLLow3.90-5.60The [facility] Physician GroupComment on above:Performed By: #### CBC #### [place] [address] USAWBC (Bld) [#/Vol]6.3 10*3/uLNormal4.1-10.5The [facility] Physician GroupComment on above:Performed By: #### CBC #### [place] [address] USAComprehensive Metabolic Panelon 40-23-9956Mvyrfdp [Mass/Vol]3.1 g/dLLow3.5-5.7The [facility] Physician GroupComment on above: Performed By: #### PT, MG, CK, BNP, CMP, HS TROP, PTT #### [place] [address] USAAlbumin/Globulin [Mass ratio]1.0 {ratio}NormalThe [facility] Physician GroupComment on above:Performed By: #### PT, MG, CK, BNP, CMP, HS TROP, PTT #### [place] [address] USAALP [Catalytic activity/Vol]95 U/CScemco26-711Mpf [facility] Physician GroupComment on above:Performed By: #### PT, MG, CK, BNP, CMP, HS TROP, PTT #### [place] [address] USAALT [Catalytic activity/Vol]81 U/LHigh7-52The [facility] Physician GroupComment on above:Performed By: #### PT, MG, CK, BNP, CMP, HS TROP, PTT #### [facility] [address] [place] [address] USAAnion gap [Moles/Vol]7.9 mmol/LNormal6.0-15.0The [facility] Physician GroupComment on above:Performed By: #### PT, MG, CK, BNP, CMP, HS TROP, PTT #### [place] [address] USAAST [Catalytic activity/Vol]120 U/KTsoh65-10Ezl [facility] Physician GroupComment on above:Performed By: #### PT, MG, CK, BNP, CMP, HS TROP, PTT #### [place] [address] USABilirubin [Mass/Vol]0.5 mg/dLNormal0.3-1.0The [facility] Physician GroupComment on above:Performed By: #### PT, MG, CK, BNP, CMP, HS TROP, PTT #### [place] [address] USACalcium [Mass/Vol]8.8 mg/dLNormal8.6-10.3The [facility] Physician GroupComment on above:Performed By: #### PT, MG, CK, BNP, CMP, HS TROP, PTT #### [place] [address] USAChloride [Moles/Vol]107 mmol/RRrrowb85-003Zev [facility] Physician GroupComment on above:Performed By: #### PT, MG, CK, BNP, CMP, HS TROP, PTT #### [place] [address] USACO2 [Moles/Vol]31.1 mmol/LHigh21.0-31.0The [facility] Physician GroupComment on above:Performed By: #### PT, MG, CK, BNP, CMP, HS TROP, PTT #### [place] [address] USACreatinine [Mass/Vol]0.95 mg/dLNormal0.70-1.30The [facility] Physician GroupComment on above:Performed By: #### PT, MG, CK, BNP, CMP, HS TROP, PTT #### [facility] [address] [place] [address] USACreatinine Clr Calc Lyzjfmmf41.40NoPending sale to [facility] Physician GroupComment on above:Performed By: #### PT, MG, CK, BNP, CMP, HS TROP, PTT #### [facility] [address] [place] [address] USAGFR/1.73 sq M.predicted MDRD (S/P/Bld) [Vol rate/Area] mL/min/{1.73_m2}NormalThe [facility] Physician GroupComment on above:Performed By: #### PT, MG, CK, BNP, CMP, HS TROP, PTT #### [facility] [address] [place] [address] USAGlobulin (S) [Mass/Vol]3.0 g/dLNorth [facility]aloosa [facility] Center Physician GroupComment on above:Performed By: #### PT, MG, CK, BNP, CMP, HS TROP, PTT #### [facility] [address] [place] [address] USAGlucose [Mass/Vol]114 mg/rZTrkq03-760Zwe [facility] Physician GroupComment on above:Result Comment: Random Glucose Reference Range is dependent on time and content of last meal. Glucose of more than 200 mg/dL in a nonstressed, ambulatory subject supports the diagnosis of Diabetes Mellitus. ADA recommended reference rangePerformed By: #### PT, MG, CK, BNP, CMP, HS TROP, PTT #### [facility] [address] [place] [address] USAPotassium [Moles/Vol]4.0 mmol/LNormal3.5-5.1The [facility] Physician GroupComment on above:Performed By: #### PT, MG, CK, BNP, CMP, HS TROP, PTT #### [facility] [address] [place] [address] USAProtein [Mass/Vol]6.1 g/dLLow6.4-8.9The [facility] Physician GroupComment on above:Performed By: #### PT, MG, CK, BNP, CMP, HS TROP, PTT #### [facility] [address] [place] [address] USASodium [Moles/Vol]142 mmol/KWzygrl270-590Rss [facility] Physician GroupComment on above:Performed By: #### PT, MG, CK, BNP, CMP, HS TROP, PTT #### [facility] [address] [place] [address] USAUrea nitrogen [Mass/Vol]14 mg/dLNormal7-25The [facility] Physician GroupComment on above:Performed By: #### PT, MG, CK, BNP, CMP, HS TROP, PTT #### [facility] [address] [place] [address] USACreatine Kinaseon 90-72-8667CV [Catalytic activity/Vol]396 U/EHzlw92-407Nev [facility] Physician GroupComment on above:Performed By: #### PT, MG, CK, BNP, CMP, HS TROP, PTT #### [facility] [address] [place] [id number] USACreatine kinase [Enzymatic activity/volume] in Serum or PlasmaOrdered By: Gary Madsen on 80-53-2769XA [Catalytic activity/Vol] Creatine kinase [Enzymatic activity/volume] in Serum or PwcpdqQrzw64-618 [facility] YoungstownCreatinine [Mass/volume] in Serum or Plasma Ordered By: Gary Madsen on 48-82-8995Bsgxgmqfbt [Mass/Vol]Creatinine [Mass/volume] in Serum or Plasma0.70-1.30[facility] Crystals [Presence] in Urine by AutomatedOrdered By: Gary Madsen on 78-83-7698Zdmwvonv Auto Ql (U)Crystals [Presence] in Urine by AutomatedSelect Medical Specialty Hospital - YoungstownDipstick and Microscopicon 49-44-1614Tqiybuktyg (U) CloudyCritically abnormalClearThe [facility] Physician GroupComment on above: Order Comment: Name Collection Type:: Clean-Voided MidstreamPerformed By: #### ADDONUAPLUS #### [facility] [address] [place] [id number] USABacteria,Urine1+HighNone SeenThe [facility] Physician Group Comment on above:Order Comment: Name Collection Type:: Clean-Voided Midstream Performed By: #### ADDONUAPLUS #### [place] [address] USABilirubin,UrineNegativeNormalNegativeMartin Memorial Health Systems Physician GroupComment on above:Order Comment: Name Collection Type:: Clean- Voided MidstreamPerformed By: #### ADDONUAPLUS #### [place] [address] USACalcium Oxalate Crystals,Urine1+NormalMartin Memorial Health Systems Physician GroupComment on above:Order Comment: Name Collection Type:: Clean- Voided MidstreamPerformed By: #### ADDONUAPLUS #### [place] [address] USAColor (U)YellowNormalYellowThe [facility] Physician Group Comment on above:Order Comment: Name Collection Type:: Clean-Voided Midstream Performed By: #### ADDONUAPLUS #### [place] [address] USAGlucose Ql (U)NormalNormalNormalThValor Health Physician GroupComment on above:Order Comment: Name Collection Type:: Clean-Voided MidstreamPerformed By: #### ADDONUAPLUS #### [place] [address] USAHyaline Casts,Urine9 [LPF]High0-8The [facility] Physician GroupComment on above:Order Comment: Name Collection Type:: Clean-Voided MidstreamPerformed By: #### ADDONUAPLUS #### [place] [id number] USAKetones Ql (U)NegativeNormalNegativeMartin Memorial Health Systems Physician GroupComment on above:Order Comment: Name Collection Type:: Clean- Voided MidstreamPerformed By: #### ADDONUAPLUS #### [place] [id number] USALeukocyte esterase Test strip Ql (U)NegativeNormalNegative [facility] Physician GroupComment on above:Order Comment: Name Collection Type:: Clean-Voided MidstreamPerformed By: #### ADDONUAPLUS #### [address] [address] USAMucus,Urine3+Critically abnormalThe [facility] Physician GroupComment on above:Order Comment: Name Collection Type:: Clean-Voided MidstreamResult Comment: PERFORMED BY: [place] [address] PATHOLOGIST APPLICATION DEVELOPMENT PROJECT MANAGER MILKA PEDERSON M.D.Performed By: #### ADDONUAPLUS #### [place] [address] USANitrite,UrineNegativeNormalNegativeThe [facility] Physician GroupComment on above:Order Comment: Name Collection Type:: Clean-Voided MidstreamPerformed By: #### ADDONUAPLUS #### [place] [address] USAOccult Blood,Urine3+HighNegativeThe [facility] Physician GroupComment on above:Order Comment: Name Collection Type:: Clean-Voided MidstreamResult Comment: PERFORMED BY: [place] [address] PATHOLOGIST APPLICATION DEVELOPMENT PROJECT MANAGER MILKA PEDERSON M.D.Performed By: #### ADDONUAPLUS #### [place] [address] USAOthe Crystals,Urine2+NormalThe [facility] Physician Group Comment on above:Order Comment: Name Collection Type:: Clean-Voided Midstream Performed By: #### ADDONUAPLUS #### [place] [address] USApH (U)5.0 [pH]Normal5.0-9.0The [facility] Physician Group Comment on above:Order Comment: Name Collection Type:: Clean-Voided Midstream Performed By: #### ADDONUAPLUS #### [place] [address] USAProtein (U) [Mass/Vol]70 mg/dLHighNegativeThe [facility] Physician GroupComment on above:Order Comment: Name Collection Type:: Clean- Voided MidstreamPerformed By: #### ADDONUAPLUS #### [facility] [address] [place] [address] USARBC,UrineInnumerableHigh0-4The [facility] Physician Group Comment on above:Order Comment: Name Collection Type:: Clean-Voided Midstream Performed By: #### ADDONUAPLUS #### [facility] [address] [place] [address] USASpecificy [place],Urine1.008Njvkpg3.001-1.030The [facility] Physician GroupComment on above:Order Comment: Name Collection Type:: Clean- Voided MidstreamPerformed By: #### ADDONUAPLUS #### [place] [address] USAUrobilinogen,UrineNormalNormalNormalThe [facility] Physician GroupComment on above:Order Comment: Name Collection Type:: Clean- Voided MidstreamPerformed By: #### ADDONUAPLUS #### [place] [address] USAWBC,Urine20 [HPF]High0-4ThValor Health Physician Group Comment on above:Order Comment: Name Collection Type:: Clean-Voided Midstream Performed By: #### ADDONUAPLUS #### [facility] [address] [place] [address] USAECG 12 lead ECGon 63-07-8318QZE 12 lead ECGKETTERING HE[facility] [place] [address] [place] [address] Electrocardiograph Report Signed Patient: Bennie Dennis MR#: [id number] 88 : 1945 Acct:[id number] Age/Sex: 78 / M ADM Date: 05/23/24 Loc: ER Room: Type: [facility] ER Attending Dr: Ordering Provider: Gary Madsen [...] By: MUS Signed By Jarocho Navarro DO 1452[facility] Physician GroupEosinophils Auto (Bld) [#/Vol]Ordered By: Gary Madsen on 31-18-3483Jnyyqcogmdg (Bld) [#/Vol]Automated eosinophil count0.0-0.45[facility] YoungstownEosinophils/100 WBC Auto (Bld) Ordered By: Gary Madsen on 09-16-6831Wqsjgdltaaq/100 WBC (Bld)Automated eosinophil %.[facility] YoungstownEpithelial cells.squamous [#/area] in Urine sediment by Automated countOrdered By: Gary Madsen on 05-23-2024 Epithelial cells.squamous Auto (Urine sed) [#/Area]Epithelial cells.squamous [#/area] in Urine sediment by Automated countSelect Medical Specialty Hospital - [place]stown Erythrocyte distribution width Auto (RBC) [Ratio]Ordered By: Gary Madsen on 00-13-1444Upzmhjiseyz distribution width (RBC) [Ratio]Erythrocyte distribution width [Ratio] by Automated xodxlYerl80.0-14.8[facility] Erythrocytes [#/area] in Urine sediment by Automated countOrdered By: Gary Madsen on 05-24-4561QMZ Auto (Urine sed) [#/Area]Erythrocytes [#/area] in Urine sediment by Automated countHigh0-4FHolmes County Joel Pomerene Memorial HospitalGlobulin Calc (S) [Mass/Vol]Ordered By: Gary Madsen on 47-59-3381Djleoyph (S) [Mass/Vol] Serum globulin measurement by calculation (mass/volume)[facility] YoungstownGlucose [Mass/volume] in Serum or PlasmaOrdered By: Gary Madsen on 73-77-1562Pjpmtnc [Mass/Vol]Glucose [Mass/volume] in Serum or PlasmaHigh 70-100[facility] - YoungstownComment on above:ADA recommended reference rangeRandom Glucose Reference Range is dependent on time and content of last meal. Glucose of more than 200 mg/dL in a nonstressed, ambulatory subject supports the diagnosisof Diabetes Mellitus.Glucose [Mass/volume] in Urine by Test stripOrdered By: Gary Madsen on 64-35-4944Hwyigua Test strip (U) [Mass/Vol]Glucose [Mass/volume] in Urine by Test stripNormalSelect Medical Specialty Hospital - YoungstownHematocrit Auto (Bld) [Volume fraction]Ordered By: Gary Madsen on 22-41-3043Ajjxmlmvip (Bld) [Volume fraction]Hematocrit [Volume Fraction] of Blood by Automated eifgsXpf18.8-50.0[facility] YoungstownHemoglobin Test strip Ql (U)Ordered By: Gary Madsen on 05-23-2024 Hemoglobin Ql (U)Hemoglobin [Presence] in Urine by Test stripHighLakehealth Beachwood Medical CenterHemoglobin [Mass/volume] in BloodOrdered By: Gary Madsen on 02-21-6762Rruvvkmvnu (Bld) [Mass/Vol]Hemoglobin [Mass/volume] in IfvacJnn63.0-17.0[facility] YoungstownHyaline casts [#/area] in Urine sediment by Automated countOrdered By: Gary Madsen on 09-02-8819Hdokpar casts Auto (Urine sed) [#/Area]Hyaline casts [#/area] in Urine sediment by Automated countHigh0-8[facility] YoungstownINR in Platelet poor plasma by Coagulation assayOrdered By: Gary Madsen on 68-41-1449MYL Coag (PPP) [Relative time]INR in Platelet poor plasma by Coagulation assaySelect Medical Specialty Hospital - YoungstownComment on above:INR Therapeutic Range A) Pre- and Peroperative OAT started two weeks before surgery. NOT HIP SURGERY: 1.5 - 2.5 HIP SURGERY: 2 - 3B) Primary and secondary prevention of venous THROMBOSIS: 2 - 3C) Active venous thrombosis, pulmonary embolismand prevention of recurrent venous thrombosis: 2 - 3D) Prevention of arterial thromboembolismincluding patients with mechanical heart valves: 3 - 4.5Ketones Test strip Ql (U)Ordered By: Gary Madsen on 56-83-1573Qaahxmz Ql (U)Ketones [Presence] in Urine by Test stripNegativeSelect Medical Specialty Hospital - YoungstownLeukocyte esterase [Presence] in Urine by Test stripOrdered By: Gary Madsen on 63-74-4394Cpfqaozac esterase Test strip Ql (U)Leukocyte esterase [Presence] in Urine by Test strip NegativeSelect Medical Specialty Hospital - YoungstownLeukocytes [#/area] in Urine sediment by Automated countOrdered By: Gary Madsen on 23-25-4334KSZ Auto (Urine sed) [#/Area]Leukocytes [#/area] in Urine sediment by Automated countHigh0-4FHolmes County Joel Pomerene Memorial HospitalLeukocytes [#/volume] corrected for nucleated erythrocytes in Blood by Automated counOrdered By: Gary Madsen on 05-23-2024 WBC corrected for nucl RBC Auto (Bld) [#/Vol]Leukocytes [#/volume] corrected for nucleated erythrocytes in Blood by Automated coun4.1-10.5FHolmes County Joel Pomerene Memorial HospitalLymphocytes Auto (Bld) [#/Vol]Ordered By: Gary Madsen on 04-20-8814Hldgeuwduoi (Bld) [#/Vol]Lymphocytes [#/volume] in Blood by Automated count1.00-4.8[facility] YoungstownLymphocytes/100 WBC Auto (Bld) Ordered By: Gary Madsen on 94-04-9258Lokftddplud/100 WBC (Bld)Lymphocytes/100 leukocytes in Blood by Automated count.[facility] HospitalH Auto (RBC) [Entitic mass]Ordered By: Gary Madsen on 90-90-6335PPS (RBC) [Entitic mass]MCH [Entitic mass] by Automated count27.5-35.2FHolmes County Joel Pomerene Memorial HospitalMCHC Auto (RBC) [Mass/Vol]Ordered By: Gary Madsen on 05-23-2024 MCHC (RBC) [Mass/Vol]MCHC [Mass/volume] by Automated count32.5-35.6FHolmes County Joel Pomerene Memorial HospitalMCV Auto (RBC) [Entitic vol]Ordered By: Gary Madsen on 10-74-0033DSI (RBC) [Entitic vol]MCV [Entitic volume] by Automated count83.5-101 [facility] YoungstownMagnesiumon 16-83-5695Nlqnfdepk [Mass/Vol]1.8 mg/dLLow1.9-2.7The [facility] Physician GroupComment on above:Result Comment: PERFORMED BY: [facility] [address] [place] [address] PATHOLOGIST APPLICATION DEVELOPMENT PROJECT MANAGER MILKA PEDERSON M.D.Performed By: #### PT, MG, CK, BNP, CMP, HS TROP, PTT #### [facility] [address] [place] [id number] USAMagnesium [Mass/volume] in Serum or PlasmaOrdered By: Gary Madsen on 05-27-3668Tzcuovoow [Mass/Vol]Magnesium [Mass/volume] in Serum or PlasmaLow1.9-2.7FHolmes County Joel Pomerene Memorial HospitalMonocyte distribution width [Entitic volume] in Blood by AutomatedOrdered By: Gary Madsen on 05-23-2024 Monocyte distribution width Auto (Bld) [Entitic vol]Monocyte distribution width [Entitic volume] in Blood by AutomatedHigh0.00-20.00[facility] YoungstownComment on above:For adults in ED, MDW > 20.0 may be associated with a higher risk of sepsis during the first 12 hrs of hospital admissionMonocytes Auto (Bld) [#/Vol]Ordered By: Gary Madsen on 47-25-1369Hgndgrako (Bld) [#/Vol]Automated blood monocyte count0.0-0.8[facility] Monocytes/100 WBC Auto (Bld)Ordered By: Gary Madsen on 05-23-2024 Monocytes/100 WBC (Bld)Automated monocyte %.[facility] Mucus [Presence] in Urine by AutomatedOrdered By: Gary Madsen on 05-23-2024 Mucus Auto Ql (U)Mucus [Presence] in Urine by AutomatedAbnormalSelect Medical [facility]Natriuretic peptide B [Mass/Vol]Ordered By: Gary Madsen on 59-42-0590Cvmgbvptfav peptide B (Bld) [Mass/Vol]BNP ser/plasHigh5-100 [facility]stownNeutrophils Auto (Bld) [#/Vol]Ordered By: Gary Madsen on 96-55-8554Pmlluuomkfw (Bld) [#/Vol]Neutrophils [#/volume] in Blood by Automated count1.8-7.7FHolmes County Joel Pomerene Memorial HospitalNeutrophils/100 WBC Auto (Bld)Ordered By: Gary Madsen on 57-46-3424Pecfwjsimki/100 WBC (Bld) Automated neutrophil %.[facility]stownNitrite Test strip Ql (U)Ordered By: Gary Madsen on 81-68-0591Iofrtvg Ql (U)Nitrite [Presence] in Urine by Test stripNegativeSelect Medical Specialty Hospital - YoungstownNo Panel Information Ordered By: Gary Madsen on 93-48-1252Bidftktrp GFR (CKD-EPI)> 60.0 mL/Min [facility]Pharm[facility] Creatinine Clearance (Chem56.40 [facility]stownNucleated erythrocytes [Presence] in Blood by Automated countOrdered By: Gary Madsen on 05-02-1000Zcyfqyhng RBC Auto Ql (Bld)Nucleated erythrocytes [Presence] in Blood by Automated count0-0.5FHolmes County Joel Pomerene Memorial HospitalPartial Thromboplastin Timeon 95-19-5928iRFC Coag (Bld) [Time]33.1 zRpmavc95.1-36.5The [facility] Physician GroupComment on above:Result Comment: A hematocrit value greater than 55% may lead to inaccurate results in coagulation testing. Patients having hematocrit values >55% require a special collection tube for coagulation studies. Please contact the laboratory at [phone] for redraw instructions. PERFORMED BY: [address] [address] PATHOLOGIST APPLICATION DEVELOPMENT PROJECT MANAGER MILKA PEDERSON M.D.Performed By: #### ADDONUAPLUS #### [place] [id number] USAPlatelet mean volume Auto (Bld) [Entitic vol]Ordered By: Gary Madsen on 61-87-1235Yxhcurks mean volume (Bld) [Entitic vol]Platelet mean volume [Entitic volume] in Blood by Automated count6.6-10.1FHolmes County Joel Pomerene Memorial HospitalPlatelets Auto (Bld) [#/Vol]Ordered By: Gary Madsen on 88-79-1936Uevhtwnrb (Bld) [#/Vol]Platelets [#/volume] in Blood by Automated eejrm648-704Ynyqpppza Regional Medical CenterPotassium [Moles/volume] in Serum or PlasmaOrdered By: Gary Madsen on 01-78-2453Kmwafaqnt [Moles/Vol]Potassium [Moles/volume] in Serum or Plasma3.5-5.1FHolmes County Joel Pomerene Memorial HospitalProtein Test strip (U) [Mass/Vol]Ordered By: Gary Madsen on 89-27-6448Smbawyr (U) [Mass/Vol]Protein [Mass/volume] in Urine by Test stripHighNegativeSelect Medical Specialty Hospital - YoungstownProtein [Mass/volume] in Serum or PlasmaOrdered By: Gary Madsen on 44-38-3338Zecvseb [Mass/Vol]Protein [Mass/volume] in Serum or PlasmaLow6.4-8.9[facility] YoungstownProthrombin Time INRon 93-60-6782CXJ Coag (PPP) [Relative time]1.5 {INR}NormalThe [facility] Physician GroupComment on above:Result Comment: INR Therapeutic Range A) Pre- and [...] patients with mechanical heart valves: 3 - 4.5Performed By: #### PT, MG, CK, BNP, CMP, HS TROP, PTT #### [facility] [address] [place] [address] USAPT Coag (PPP) [Time]17.4 sHigh9.0-12.9The [facility] Physician GroupComment on above:Result Comment: A hematocrit value greater than 55% may lead to inaccurate results in coagulation testing. Patients having hematocrit values >55% require a special collection tube for coagulation studies. Please contact the laboratory at [phone] for redraw instructions.Performed By: #### PT, MG, CK, BNP, CMP, HS TROP, PTT #### [facility] [address] [place] [address] USAProthrombin time (PT)Ordered By: Gary Madsen on 25-74-9391ZW Coag (PPP) [Time]Prothrombin time (PT)High9.0-12.9[facility] YoungstownComment on above:A hematocrit value greater than 55% may lead to inaccurate results in coagulation testing. Patientshaving hematocrit values >55% require a special collection tube for coagulation studies. Please c ontact the laboratory at [phone] for redraw instructions.RBC Auto (Bld) [#/Vol]Ordered By: Gary Madsen on 69-64-8700FGY (Bld) [#/Vol]Erythrocytes [#/volume] in Blood by Automated countLow3.90-5.60Guernsey Memorial Hospitalerum or plasma albumin/globulin mass ratioOrdered By: Gary Madsen on 53-55-8876Xmddygc/Globulin [Mass ratio]Serum or plasma albumin/globulin mass ratioGuernsey Memorial Hospitalerum or plasma anion gap determination Ordered By: Gary Madsen on 96-28-0624Diqyj gap [Moles/Vol]Serum or plasma anion gap determination6.0-15.0Guernsey Memorial Hospitalodium [Moles/volume] in Serum or PlasmaOrdered By: Gary Madsen on 56-88-0897Znlcoh [Moles/Vol]Sodium [Moles/volume] in Serum or Llehfw835-491OqzaqikoqGuernsey Memorial Hospitalpecific gravity Test strip (U) [Rel density]Ordered By: Gary Madsen on 76-79-1546Roflrrdy gravity (U) [Rel density]Specific gravity of Urine by Test strip1.001-1.030[facility] YoungstownTroponin I High Sensitivityon 85-98-3199Klbywxay I High Lsvyczvjtqf15Eagl6-90Lir [facility] Physician GroupComment on above:Result Comment: The Troponin units of report have been changed to meet the Chest Pain Accreditation requirement, element EC5.M1l2. Troponin units are changed from pg/ml to ng/L. Also, the decimal is removed and results are in whole numbers. PERFORMED BY: [facility] [address] [place] [address] PATHOLOGIST APPLICATION DEVELOPMENT PROJECT MANAGER MILKA PEDERSON M.D.Performed By: #### PT, MG, CK, BNP, CMP, HS TROP, PTT #### [facility] [address] [place] [address] USATroponin I.cardiac [Mass/volume] in Serum or Plasma by Detection limit <= 0.01 ng/Ordered By: Gary Madsen on 27-77-5735Jcmujocj I.cardiac DL <= 0.01 ng/mL [Mass/Vol]Troponin I.cardiac [Mass/volume] in Serum or Plasma by Detection limit <= 0.01 ng/High0-[facility] - YoungstownComment on above:The Troponin units of report have been changed to meet the Chest Pain Accreditation requirement, element EC5.M1l2. Troponin units are changed from pg/ml to ng/L. Also, the decimal is removed and results are in whole numbers.Urea nitrogen [Mass/volume] in Serum or PlasmaOrdered By: Gary Madsen on 44-79-1696Hvbo nitrogen [Mass/Vol]Urea nitrogen [Mass/volume] in Serum or Plasma11-09[facility] YoungstownUrobilinogen Test strip (U) [Mass/Vol]Ordered By: Gary Madsen on 67-19-2832Whpyvlwspfzy (U) [Mass/Vol] Urobilinogen [Mass/volume] in Urine by Test stripNormalSelect Medical Specialty Hospital - YoungstownWBC Auto (Bld) [#/Vol]Ordered By: Gary Madsen on 63-90-0241WCN (Bld) [#/Vol]Leukocytes [#/volume] in Blood by Automated count4.1-10.5FHolmes County Joel Pomerene Memorial HospitalX-ray reportOrdered By: Bry Pike on 09-46-2691Gwgqz reportKETTERING HEALTH [facility]TON [address] [place] [address] XRay Report Signed Patient: Bennie Dennis MR#: [id number] : 1945 Acct:[id number] Age/Sex: 78 / M ADM Date: 5 Loc: ER Room: Type: [facility] ER Attending Dr: Copies to: Gary Madsen [...] mediastinal structures are within normal limits. The lungparenchyma is clear. The bony thorax is intact. Degenerative changes are noted in the shoulders andthoracic spine. XR/XR chest 2V* IMPRESSION: No acute cardiopulmonary pathology. Chronic-appearing changes are noted as above. Impression dictated by: Bry Pike M.D.05/23/2024 12:15 PM Dictation Location: [facility]--23 Transcribed By: CAMILO 05/23/24 1215 Dictated By: Bry Pike II, MD 05/23/24 1213 Signed By: 05/23/24 1215 [facility] Work Phone: XR chest 2V*on 46-76-4552FO chest 2V*[facility] [address] [place] [address] XRay Report Signed Patient: Bennie Dennis MR#: [id number] : 1945 Acct:[id number] Age/Sex: 78 / M ADM Date: 05/23/24 Loc: ER Room: Type: [facility] ER Attending Dr: Copies to: Gary Madsen [...] Bry Pike M.D.05/23/2024 12:15 PM Dictation Location: [place] [address] Transcribed By: CAMILO 05/23/24 1215 Dictated By: Bry Pike II, MD 05/23/24 1213 Signed By: 05/23/24 1215[facility] Physician GroupaPTT in Platelet poor plasma by Coagulation assayOrdered By: Gary Madsen on 76-54-1775pSEY Coag (PPP) [Time] Activated partial thromboplastin time (aPTT) in platelet poor plasma by coagulation a25.1-36.5FHolmes County Joel Pomerene Memorial HospitalComment on above:A hematocrit value greater than 55% may lead to inaccurate results in coagulation testing. Patientshaving hematocrit values >55% require a special collection tube for coagulation studies. Please contact the laboratory at [phone] for redraw instructions.pH Test strip (U)Ordered By: Gary Madsen on 53-06-8421zX (U)pH of Urine by Test strip5.0-9.0[facility]stownCoding Query on 14-60-7853Wwplrn QueryCoding Query From: Melvin METCALF, Crystal To: Azucena CROWLEY; Cc: Román Ulrich; Sent: 05/21/2024 10:30:36 EST ! Subject: Coding Query Due Date/Time: 05/23/2024 10:30:00 EST Caller Name: BENNIE DENNIS; Caller Number: Denzel , M Documentation in the medical record indicates this patient has been admitted with or diagnosed as having: Pneumonia The following is also documented in the medical record: dc summary-Pt was treated also with IV Vanco/Zosyn while assessing for bacterial/viral pneumonia vsabove. Blood cultures obtained on admission h ave [...] Query Caller Name: BENNIE DENNIS; Caller Number: H , M pt for sure had med reaction BUT reaction caused pneumonia which was likely viral and not bacterialNormalFishSinai Hospital of BaltimoreCoding QueryCoding Query From: Nina Wren RN To: Azucena CROWLEY; Sent: 05/15/2024 08:16:34 EST ! Subject: Coding Query Due Date/Time: 05/16/2024 08:16:00 EST Caller Name: BENNIE DENNIS; Caller Number: H , M The following diagnosis was indicated [...] infection/drug reaction to Stelara. Patient was in septicshock on admission. Patient was treated with aggressive [...] on admission h ave remained negative t/o h ospitalization. Pt was seen by pulmonology on consultation ; pt was treated w/med nebs, flutter, IS, mucinex and required supplemental oxygen as pt also w/past medical history of smoking and likely w/undiagnosed COPD as well. Based on your medical judgment, can you please clarify which is the wording most closely reflectingthe condition of the patient? [___]suspected sepsis with [...] is desired or expected. Thank you!nina [id number] From: Azucena CROWLEY To: Nina Wren RN; Sent: 05/21/2024 17:26:41 EST Subject: RE: Coding Query Caller Name: BENNIE DENNIS; Caller Number: , sepsis with distributive shockNormalFisher Holy Cross HospitalLab Miscellaneous-LCon 99-24-3654Qha MiscellaneousCOMMENTInvalid Interpretation Code Preet [facility] Cross HospitalComment on above:Result Comment: Test Ordered: [id number] Pneumocystis PCR Result Negative ML ADDITIONAL INFORMATION This test was developed and its performance characteristics determined by [facility] in a manner consistent with CLIA requirements. This test has not been cleared or approved by the U.S. Food and Drug Administration. REFERENCE RANGE: Not Applicable Specimen Source BAL ML Performed at: [facility] [address] [id number] PhD Brandyn Terryformed By: #### [id number] #### [facility] [address] [place], [place] [address]Stn-Ofw Cytology Reporton 59-87-0005Vuv-[employer]olar Energy System Installer Cytology Report [address] [place] [address]- Non-Solar Energy System Installer Cytology Report Collected Date/Time: 05/11/2024 13:31 EST Pathologist: Shaun STEWART PhD, Kj Martins Received Date/Time: 05/14/2024 08:34 EST Angelo STEWART, Pooja Stephens MD, Pooja X Daryl Non-Solar Energy System Installer Cytology Report - 05/17/2024 12:21 EST - [...] recognition technology and might contain unintended computerized perfect bind machine operator errors.Berger HospitalComment on above:Performed By: #### [id number] #### [facility] [address] [place] [address]Zljsrf Queryon 27-47-0957Ibofts QueryCoding Query From: Nina Wren RN To: Azucena [...] infection/drug reaction to Stelara. Patient was in septicshock on admission. Patient was treated with aggressive [...] on admission h ave remained negative t/o h ospitalization. Pt was seen by pulmonology on consultation ; pt was treated w/med nebs, flutter, IS, mucinex and required supplemental oxygen as pt also w/past medical history of smoking and likely w/undiagnosed COPD as well. Based on your medical judgment, can you please clarify which is the wording most closely reflectingthe condition of the patient? [___]suspected sepsis with [...] answer is desired or expected. Thank you!nina 6396NormAdarsh [facility] 34-80-0704GdbbofgohlThe Children's Hospital Foundation Case Information Case Priority: None Programs: -- Referral Source: Salesperson [employer] Referral Reason: Care coordination Case Type: Transition [...] qualifying data Procedure/Surgical History Bronchoscopy abnormal (05/11/2024), Esophagogastroduodenoscopy (03/28/2024), Flexible sigmoidoscopy(03/28/2024), Cardiac catheter, Carotid endarterectomy, Colonoscopy. Home Medications [...] Not taking: Medication was placed on hold [facility] D/C 05/14 until seen by cardiology ferrous sulfate 325 mg Tab, 325 mg= 1 tab(s), Oral, BIDWM ipratropium 0.02% Inh Alisha 2.5 mL, 500 mcg= 2.5 mL, NEB, QID, Investigating: Still needs to order picker/assembler-needs nebulizer levalbuterol 0.63 mg/3 mL Inh Alisha, 0.63 mg= 3 mL, Inhalation, QID, Investigating: Still needs to order picker/assembler- needs nebulizer omeprazole 40 mg Cap-DR, 40 mg= 1 cap(s), Oral, Daily, 3 refills One-A-Day Men's Health Formula, 1 tab(s), Oral, Daily PreserVision AREDS, See Instructions spironolactone 25 mg Tab, 0.5 tab, Oral, Daily, Not taking: Medication was placed on hold at [facility] D/C 05/14 until seen by cardiology Vitamin [...] Ventolin inhaler 2 puffs Q 6 hr, ipratropiumnebulizer QID #60, Levalbuterol nebulizer QID #60 Have [...] 05/06/2024, Diarrhea, 05/10/2024, Hypokalemia, 05/11/2024, CAD in [place] artery, 05/06/2024, Chronic systolic heart failure, 05/06/2024, Paroxysmal A-fib, 05/06/2024, [place] pratherapeutic INR, 05/08/2024, (hypertension), 05/06/2024, HLD (hyperlipidemia), 05/06/2024, Pancreatic insufficiency, 05/06/2024, UC (ulcerative colitis), 05/06/2024, BPH (benign prostat (more content not included)...Berger HospitalCOAGULATIONOrdered By: Rylie Paulino on 00-86-7218ZTW Coag (PPP) [Relative time]1.95 {INR}Invalid Interpretation CodeINTEGRIS BASS BAP[facility] Auto CoagComment on above:Interpretive Data: INR results are specifically intended to assess patients stabilized on long-term Anticoagulation therapy suggested INR s Less Intensive Anticoagulation 2.0 3.0 Conventional Range 3.0 4.5PT Coag (PPP) [Time]22.0 sHigh9.4 - 12.5 second(s)[facility] Auto CoagComment on above:Interpretive Data: 15 days - 4 weeks 1 - [...] the same coagulation reagent and instrumentation as [facility]. Currently there are no coagulation studies available worldwide for children to 14 days, andno normal ranges.Discharge Note-Nursingon 24-04-5153Yuayityaq Note-NursingDischarge Note-Nursing BENNIE DENNIS :1945 Visit Date:05/06/2024 Inpatient Discharge Instructions Your Care Team Admitting Physician - Pan Gar DO Consulting Physician - Duane Lund Jr., PA-C Reason for Your Visit Generalized weakness Your Diagnosis Acute hypoxic respiratory failure Shock Acute hypotension PNA (pneumonia) Pleural effusion on right Acute sinusitis Anemia Urinary retention with incomplete bladder emptying Acute kidney injury Diarrhea Hypokalemia CAD in [place] artery Chronic systolic heart failure Paroxysmal A-fib [...] Men's Health Formula) omeprazole (omeprazole 40 mg Skylar) pancrelipase (Creon 36,000 units oral delayed release capsule) sacubitril-valsartan (Entresto 24 mg-26 mg oral tablet) spironolactone (spironolactone 25 mg Tab) warfarin (warfarin 4 mg Tab) [Image Removed: STOP]Stop taking these medications aspirin (aspirin 81 mg Oral EC Tab) ustekinumab (Stelara) Procedure History Bronchoscopy abnormal (05/11/2024), Esophagogastroduodenoscopy (03/28/2024), Flexible sigmoidoscopy(03/28/2024), Cardiac catheter, Carotid endarterectomy, Colonoscopy. Discharge Vitals Temperature (Axillary) 36.3 ???C Heart Rate (Monitored) 92 Respiratory Rate 18 Blood Pressure 118/69 Height 172.72 cm Weight 66.6 kg What to do next Instructions From Your Doctor Event Name Event Result Discharge Activity Activity as tolerated Discharge Diet(s) Regular Pending Diagnostic Test Results Biopsy/pathology Discharge Instructions DISCONTINUE STELARA AND DR HASSAN WILL DISCUSS WITH YOU IN GI OFFICE OTHER ALTERNATIVES.DO NOT TAKE ENTRESTO OR SPIRONALACTONE UNTIL CARDIOLOGY CLEARS AT FOLLOW UP APPT.CHECK INR IN 2 DAYS AND TREATAS BEFORE Previously Scheduled Follow-Up Appointments 2024 3:00 PM EST With: Pete Gar MD Where: [address] [address] 2024 9:15 AM EDT With: Debra STEWART, Eloisa Cheung Where: [facility] [address] [place] [address] [place] [address]- 2024 10:00 AM EDT With: Pete Gar MD Where: [address] [address]- Tuesday 11:00 AM EDT With: Where: [address] [address]- New Follow Up Appointments after Discharge Follow Up with Pete Gar When: 05/24/2024 03:00 PM EST Comments: Keep scheduled appointment Where: [address] [place] [address]- Business (2) Follow Up with Linda Enrique When: Comments: Dr. Enrique's office will call you for a follow up appointment. If you do not hear form them is a few days, then call for hospital followup appointment in regards to urinary retention /gill. Thank you. Follow Up with Eloisa Hassan When: Comments: Call for followup appointment 2 weeks. Where: [address] [place] [phone] Business (1) Follow Up with Pooja Stephens When: Comments: Call for followup appointment 3 weeks Where: [address] [place] [phone] Business (1) Medications What How Much When Why Instructions Next Dose New albuterol (Albuterol (Eqv-Ventolin HFA) 90 mcg/ inh inhalation aerosol) 2 Inhalation InhalationEvery 6 hours Pickup at [facility]/pharmacy #[id number] Today at 4:00 PM New ferrous sulfate (ferrous sulfate 325 mg Tab) 1 Tablets By Mouth Twice a day (with meals) Pickupat [facility]/pharmacy #[id number] Today at 5:00 PM New ipratropium (ipratropium 0.02% Inh Alisha 2.5 mL) 2.5 Milliliter Nebulized inhalation (aerosol) 4 times a day PNA (pneumonia) Pickup at [facility]/pharmacy #[id number] Today at 4:00 PM New levalbuterol (leva (more content not included)...NormalFisher Holy Cross HospitalExtra Piyush 00-65-2988JH Tube CollectedYesInvalid Interpretation Code [facility] Orthopedic CenterComment on above:Performed By: #### [id number] ####[facility] [address] [place] [address] Inpatient Clinical Summaryon 76-58-4552Cdjemzthd Clinical SummaryInpatient Clinical Summary [address] [address] Clinical Summary Person Information: Name: BENNIE DENNIS Age: 78 Years : 1945 Sex: Male PCP: Pete Gar MD Marital Status: Race: White Ethnicity: Non- or Language: Israeli Visit Id: Visit Reason: Respiratory problem; Blood in stool; Weakness or fatigue; ABD CQTS-CYNK-FQNL WALKING-WEAKNESS Speciality: Acuity: Enc Type: Inpatient Med Service: Medical Arrival: 05/06/2024 10:29:54 Discharge: Dispo Type: Admit to [facility] Address: [address] [place] [phone] Provider Notes: Diagnosis: 1:Acute hypoxic respiratory failure; 2:Shock; 3:Acute hypotension; 4:PNA (pneumonia); 5:Pleural effusion on right; 6:Acute sinusitis; 7:Anemia; 8:Urinary retention with incomplete bladder emptying; 9:Acute kidney injury; 10:Diarrhea; 11:Hypokalemia; 12:CAD in [place] artery; 13:Chronic systolic heart failure; 14:Paroxysmal A-fib; 15:Supratherapeutic INR; 16:HTN (hypertension); 17:HLD (hyperlipidemia); 18:Pancreatic insufficiency; 19:UC (ulcerative colitis); 20:BPH (benign prostatic hyperplasia);21:History of CVA with residual deficit; 22:On deep [...] up: With: Address: When: Eloisa Hassan [address], [address] [place] [phone] Business (1) Comments: Call for followup appointment 2 weeks. With: Address: When: Pooja Stephens [address] [facility] [place] [phone] Business (1) Comments: Call for followup appointment 3 weeks With: Address: When: Linda Enrique Comments: Call for hospital followup appointment in regards to urinary retention /gill With: Address: When: Pete Gar [address] [place] [address] [facility] (2) 05/24/2024 3:00 PM Comments: Keep scheduled appointment Type Location Start [facility] Follow Up w/TCM [facility] 05/24/2024 3:00 PM 05/24/2024 3:30 PM Confirmed BADH Follow Up [facility] 07/05/2024 9:15 AM 07/05/2024 9:30 AM Confirmed FM Open [facility] 08/30/2024 10:00 AM 08/30/2024 10:15 AM Confirmed Medicare Wellness Subsequent [facility] 11/21/2024 11:00 AM 11/21/2024 12:00 PM Confirmed Patient Education Information:Berger HospitalInpatient Patient Summaryon [id number] Patient SummaryInpatient Patient Summary [address] [address] Patient Discharge Instructions PERSON INFORMATION Name: BENNIE DENNIS Date of : 1945 Current Date: 05/14/2024 12:18:54 PHYSICIANS Admitting Physician: Pan Gar DO Primary Care Physician: Pete Gar MD PCP Comment: Discharge Diagnosis: 1:Acute hypoxic respiratory failure; 2:Shock; 3:Acute hypotension; 4:PNA (pneumonia); 5:Pleural effusion on right; 6:Acute sinusitis; 7:Anemia; 8:Urinary retention with incomplete bladder emptying; 9:Acute kidney injury; 10:Diarrhea; 11:Hypokalemia; 12:CAD in [place] artery; 13:Chronic systolic heart failure; 14:Paroxysmal A-fib; 15:Supratherapeutic INR; 16:HTN (hypertension);17:HLD (hyperlipidemia); 18:Pancreatic insufficiency; 19:UC (ulcerative colitis); 20:BPH (benign prostatic hyperplasia); 21:History of CVA with residual deficit; 22:On deep vein thrombosis (DVT) prophylaxis Condition at Discharge: Stable BENNIE DENNIS has been given the following [...] up: With: Address: When: Eloisa Hassan [address] [place] [phone] Business (1) Comments: Call for followup appointment 2 weeks. With: Address: When: Pooja Stephens [address], [facility] [place] [phone] Business (1) Comments: Call for followup appointment 3 weeks With: Address: When: Linda Enrique Comments: Call for hospital followup appointment in regards to urinary retention /gill With: Address: When: Pete Gar [address] [place], [place] [phone] Business (2) 05/24/2024 3:00 PM Comments: Keep scheduled appointment In the event that this physician does not participate in your insurance network, please consult with your insurance company to find a nearby participating provider. Type Location Start [facility] Follow Up w/TCM [facility] 05/24/2024 3:00 PM 05/24/2024 3:30 PM Confirmed BADH Follow Up [facility] 07/05/2024 9:15 AM 07/05/2024 9:30 AM Confirmed FM Open [facility] 08/30/2024 10:00 AM 08/30/2024 10:15 AM Confirmed Medicare Wellness Subsequent [facility] 11/21/2024 11:00 AM 11/21/2024 12:00 PM Confirmed Comment: ELVER Lopez ERIC P, have received the attached patient education materials/instructions and have verbalized understanding: Patient Signature Date Clinican/Nurse Signature Date HERE ARE THE MEDICATION CHANGES THAT OCCURRED DURING YOUR HOSPITAL STAY New Medications [id number], [address], [place] [id number], [phone] albuterol (Albuterol (Eqv-Ventolin HFA) 90 mcg/inh inhalation aerosol) 2 Inhalation Inhalation every 6 hours. Refills: 0. Last Dose: Next Dose: ferrous sulfate (ferrous sulfate 325 mg Tab) 1 Tablets By Mouth twice a day (with meals). Refills: 0. Last Dose: Next Dose: ipratropium (ipratropium 0.02% Inh Alisha 2.5 mL) 2.5 Milliliter Nebulized inhalation (aerosol) 4 times a day. Refills: 0. Last Dose: Next Dose: levalbuterol (levalbuterol 0.63 mg/3 mL Inh Alisha) 3 Milliliter Inhalation 4 times a day. Refills: 0. Last Dose: Next Dose: Medications to Continue with No Changes Other Medications atorvastatin (atorvastatin 80 mg Tab) TAKE 1 TABLET DAILY. Refills: 3. Last Dose: Next Dose: carvedilol (carvedilol 12.5 mg Tab) 1 Tablets By Mouth 2 times a day. Last Dose: Next Dose: cholecalciferol (Vitamin D3 10,000 intl units oral capsule) 1 Capsules By Mouth every day. Last Dose: Next Dose: multivitamin (One-A-Day Men's Health Formula) 1 Tablets By Mouth every day. Last Dose: Next Dose: omeprazole (omeprazole 40 mg Cap-DR) 1 Capsule (more content not included)... [facility] HospitalInterdisciplinary Note - Case Manageron [id number] Note - Case ManagerInterdisciplinary Note - Uniform Designer Patient is awake and alert in bed, previously rounded with Corie COOK TACO. Pt has been up walking in halls with therapy, no longer has SNF recommendation. Possible DC home today with Kenan NUNES, RN, PT, and OT. Pt will need a walker at [facility] ok to use [employer], Referral to resource center. Medicare rights reviewed. . PCP verified and insurance information reviewed and DME discussed. Contact informat ion provided and white board updated. pt will also need nebulizer from [facility] approved by insurance and will be delivered to pt room soon. Nebulizer not approved due to no qualifying diagnosis. CRM discussed self pay amount $80 with and she does not have a nebulizer at home and does not have $80 to pay for this. MEDICAL CHEMIST updated, and will review chat and awaiting pulm to see. CRM following NormalFisher Hernan Medical CenterComment on above:Result Comment: Electronically Signed By: Javed METCALF, Vee\.dana\Date and Time Signed: 05/14/24 14:31 ESTMain OR Intraoperative Recordon [id number] OR Intraoperative RecordMain OR Intraoperative Record IntraOp Document Type FT Summary Primary Physician: Pooja Stephens MD Finalized Date/Time: 05/14/24 12:38:17 Pt. Name: ELVER BENNIE Starkey D.O.B./Sex: 1945 Male Med Rec #: [id number] Physician: Pan Gar DO Financial #: [id number] Pt. Type: I Room/Bed: [facility] Admit/Disch: 05/06/24 10:29:54 - Institution: Case Times [...] 2 Entry 3 Case Attendee Pooja Stephens MD RN, Cheryl Calvo RN, Kati F Role Performed Surgeon - Primary Rn Clinical Quality - Primary Staff - Other Time In [...] Comments Help in room. Last Modified By: Cheryl Gastelum RN, RN, Kara N 05/11/24 13:29:15 05/11/24 13:29:15 Perioperative Protocols FT [...] (If Applicable) PreOp Antibiotic No Time Out Pooja Stephens MD, Given Participants Cheryl Gastelum RN, Umesh METCALF, Wilson Becerril Micala E, Valerie RN, Ubaldo Azevedo Time Out Complete 05/11/24 [...] lobe BAL. Primary Procedure Yes Primary Surgeon Pooja Stephens MD Start 05/11/24 13:16:00 Stop 05/11/24 13:25:00 Anesthesia [...] and tissue Entry 1 Skin Integrity Intact, [place], Warm, & Skin Abnormality No Dry Outcomes [...] Right Arm Position Restin (more content not included)...NormalCrystal Clinic Orthopedic CenterPTon [id number] Coag (PPP) [Relative time]1.95 {INR}Invalid Interpretation [facility] MiamisburgComment on above:Result Comment: INR results are specifically intended to assess patients stabilized on long-term Anticoagulation therapy suggested INR???s ???Less Intensive Anticoagulation??? 2.0 ??? 3.0 Conventional Range 3.0 ??? 4.5Performed By: #### [id number] #### [facility] [address], [place] [address]JN Coag (PPP) [Time]22.0 second(s)High9.4-12.5Fisher Holy Cross HospitalComment on above:Result Comment: 15 days - 4 weeks 1 - [...] the same coagulation reagent and instrumentation as [facility]. Currently there are no coagulation studies available worldwide for children to 14 days, andno normal ranges.Performed By: #### [id number] #### [facility] [address], [place] [address]TRFMMLYVDAYQkmublx By: Shelbi Lemons on 20-72-0364PTX Coag (PPP) [Relative time]1.49 {INR}Invalid Interpretation CodeINTEGRIS [facility] Auto CoagComment on above:Interpretive Data: INR results are specifically intended to assess patients stabilized on long-term Anticoagulation therapy suggested INR s Less Intensive Anticoagulation 2.0 3.0 Conventional Range 3.0 4.5PT Coag (PPP) [Time]16.8 sHigh9.4 - 12.5 second(s)[facility] Auto CoagComment on above:Interpretive Data: 15 days - 4 weeks 1 - [...] the same coagulation reagent and instrumentation as [facility]. Currently there are no coagulation studies available worldwide for children to 14 days, andno normal ranges.[place] 05-69-3933IO Tube CollectedYesInvalid Interpretation CodeCrystal Clinic Orthopedic CenterComment on above:Performed By: #### [id number] #### [facility] [address], [place] [address]OIdc 23-74-5362HPW Coag (PPP) [Relative time]1.49 {INR}Invalid Interpretation CodeFisher Holy Cross HospitalComment on above:Result Comment: INR results are specifically intended to assess patients stabilized on long-term Anticoagulation therapy suggested INR???s ???Less Intensive Anticoagulation??? 2.0 ??? 3.0 Conventional Range 3.0 ??? 4.5Performed By: #### [id number] #### [facility] [address], [place] [address]LY Coag (PPP) [Time]16.8 second(s)High9.4-12.5Fisher Holy Cross HospitalComment on above:Result Comment: 15 days - 4 weeks 1 - [...] the same coagulation reagent and instrumentation as [facility]. Currently there are no coagulation studies available worldwide for children to 14 days, andno normal ranges.Performed By: #### [id number] #### [facility] [address], [place] [address]WQGOWKZUVAtulnkr By: SYSTEM SYSTEM on 53-91-5361Prugh gap [Moles/Vol]10 mmol/LNormal6 - 16 mEq/LRemisol ChemCalcium [Mass/Vol]8.0 mg/dLLow 8.9 - 11.1 mg/dLRemisol ChemChloride [Moles/Vol]111 mmol/HYowkex105 - 111 mmol/L Remisol ChemCO2 [Moles/Vol]27 mmol/HRisupt11 - 31 mmol/LRemisol ChemCreatinine [Mass/Vol]1.0 mg/dLNormal0.5 - 1.3 mg/dLRemisol NwifnXWK10 mL/min/1.73 h3Fjuuct >=59mL/min/1.73 p5Vplzfyv ChemGlucose [Mass/Vol]94 mg/bNQawxon03 - 199 mg/dL Remisol ChemMagnesium [Mass/Vol]2.0 mg/dLNormal1.3 - 2.4 mg/dLRemisol Chem Potassium [Moles/Vol]3.8 mmol/LNormal3.5 - 5.3 mmol/LRemisol ChemSodium [Moles/Vol]144 mmol/UBvhcrc493 - 145 mmol/LRemisol ChemTotal CK133 [iU]/dNormal 14 - 261 Int._Unit/LRemisol ChemUrea nitrogen [Mass/Vol]15 mg/dLNormal5 - 21 mg/dLRemisol ChemUrea nitrogen/Creatinine [Mass ratio]15 mg/gnVzwvyd90 - 20 Remisol ChemCOAGULATIONOrdered By: Shelbi Lemons on 39-54-0640COV Coag (PPP) [Relative time]1.11 {INR}Invalid Interpretation CodeINTEGRIS [facility] Auto CoagComment on above:Interpretive Data: INR results are specifically intended to assess patients stabilized on long-term Anticoagulation therapy suggested INR s Less Intensive Anticoagulation 2.0 3.0 Conventional Range 3.0 4.5PT Coag (PPP) [Time]12.5 sNormal9.4 - 12.5 second(s) [facility] Auto CoagComment on above:Interpretive Data: 15 days - 4 weeks 1 - [...] the same coagulation reagent and instrumentation as [facility]. Currently there are no coagulation studies available worldwide for children to 14 days, andno normal ranges.HEMATOLOGYOrdered By: SYSTEM SYSTEM on 29-41-4205Kpguempikk (Bld) [Volume fraction]28.1 %Low37.7 - 49.0 %Remisol HemeHemoglobin (Bld) [Mass/Vol] 9.5 g/dLLow13.5 - 17.5 gm/dLRemisol HemeCHEMISTRYOrdered By: SYSTEM SYSTEM on 79-82-1302Tbokk gap [Moles/Vol]8 mmol/LNormal6 - 16 mEq/LRemisol ChemCalcium [Mass/Vol]8.0 mg/dLLow8.9 - 11.1 mg/dLRemisol ChemChloride [Moles/Vol]110 mmol/L Bzkzkr143 - 111 mmol/LRemisol ChemCO2 [Moles/Vol]27 mmol/URsnrzw98 - 31 mmol/L Remisol ChemCreatinine [Mass/Vol]1.0 mg/dLNormal0.5 - 1.3 mg/dLRemisol ChemeGFR 77 mL/min/1.73 q1Gwzhsr>=59mL/min/1.73 x1Goobgoe ChemGlucose [Mass/Vol]77 mg/dL Jkgjgt32 - 199 mg/dLRemisol ChemMagnesium [Mass/Vol]1.6 mg/dLNormal1.3 - 2.4 mg/dLRemisol ChemPotassium [Moles/Vol]3.0 mmol/LLow3.5 - 5.3 mmol/LRemisol Chem Sodium [Moles/Vol]142 mmol/JJqxdct095 - 145 mmol/LRemisol ChemUrea nitrogen [Mass/Vol]14 mg/dLNormal5 - 21 mg/dLRemisol ChemUrea nitrogen/Creatinine [Mass ratio]14 mg/yxCpouds08 - 20Remisol ChemHEMATOLOGYOrdered By: Swetha Rivera on 34-46-0616Pqkjrvw (Unsp spec)Clear (05/11/24 1:32 PM)NormalFTMC HemeManSSColor (Body fld)Colorless (05/11/24 1:32 PM)NormalFTMC HemeManSSEosinophils Manual cnt (Body fld) [#/Vol]1 %Invalid Interpretation CodeFTMC HemeManSSLymphocytes Manual cnt (Body fld) [#/Vol]16 %Invalid Interpretation CodeINTEGR[facility] HemeManSSMonocyte+Macrophage/100 WBC Manual cnt (Body fld)74 %Invalid Interpretation CodeINTEGRIS [facility] HemeManSSRBC Auto (Body fld) [#/Vol]265 cells/mcLHigh<=0cells/mcLINTEGRIS BASS [facility] HemeManSSSegmented neutrophils Manual cnt (Body fld) [#/Vol]9 %Invalid Interpretation CodeINTEGRIS [facility] HemeManSS Specimen type Nom (Spec)Bronchial fluid (05/11/24 1:32 PM)NormalINTEGRIS B[facility] HemeManSSTNC BF103 cells/mcLInvalid Interpretation CodeINTEGRIS [facility] HemeManSSComment on above:Interpretive Data: TNC: Total Nucleated Cells include WBC's and other cells present, (eg, mesothelial cells and other lining cells)HEMATOLOGYOrdered By: SYSTEM SYSTEM on 88-62-8220Aqhmloqieq (Bld) [Volume fraction]27.0 %Low37.7 - 49.0 %Remisol HemeHemoglobin (Bld) [Mass/Vol]9.1 g/dL Low13.5 - 17.5 gm/dLRemisol HemeLab Miscellaneous-LCon 03-95-5839Vlbw [id number] Invalid Interpretation [facility] MiamisburgComment on above:Result Comment: Collection date/time has been modified to: 13:31:00. Previous collection date/time: 13:32:00.Performed By: #### [id number] #### [facility] [address], [place] [address]Glhi NamePJP PCRInvalid Interpretation [facility] MiamisburgComment on above:Result Comment: Collection date/time has been modified to: 13:31:00. Previous collection date/time: 13:32:00. Performed By: #### [id number] #### [facility] [address], [place] [address]Mq Panel InformationOrdered By: Rylie Paulino on 05-11-2024 Bronchial Wash CultureNo growth at [address] [facility] HospitalGS Occasional White Blood Cells Rare epithelial cells No organisms seen.[facility] HospitalKOHOccasional YeastMercy Health St. Joseph Warren HospitalBronchial Wash CultureScant growth of Normal upper respiratory wandy isolatedMercy Health St. Joseph Warren HospitalGSRare epithelial cells No WBC's seen. No organisms seen.[facility] HospitalKOHNo fungal elements seen.[facility] HospitalReference Laboratory TestingOrdered By: Cheryl Gastelum on 80-19-0963Hbsv [id number] 1Invalid Interpretation CodeINTEGRIS B[facility] SendOutsSSComment on above:Result Comment: Collection date/time has been modified to: 13:31:00. Previous collection date/time: 13:32:00.Test NamePJP PCR Invalid Interpretation CodeINTEGRIS [facility] SendOutsSSComment on above:Result Comment: Collection date/time has been modified to: 13:31:00. Previous collection date/time: 13:32:00.BMPon 78-70-8526Wfqwn gap [Moles/Vol]10 mmol/LNormal6-16C[facility] Clinic Orthopedic CenterComment on above:Performed By: #### [id number] #### [facility] [address], [place] [address]Yqmqpth [Mass/Vol]8.2 mg/dLLow8.9-11.1FAdena Pike Medical CenterComment on above:Performed By: #### [id number] #### [facility] [address], [place] [address]Armjyxpu [Moles/Vol]112 mmol/FRtig992-756WtcsxxCrystal Clinic Orthopedic CenterComment on above:Performed By: #### [id number] #### [facility] [address], [place] [address]SI9 [Moles/Vol]26 mmol/UHixifr47-90BkrjbmCrystal Clinic Orthopedic Center Comment on above:Performed By: #### [id number] #### [facility] [address], [place] [address]Blanbegbbq [Mass/Vol]1.1 mg/dLNormal0.5-1.3FAdena Pike Medical CenterComment on above:Performed By: #### [id number] #### [facility] [address], [place] [address]Qtmeiwq [Mass/Vol]83 mg/jGFnjhko10-609PfnyjjCrystal Clinic Orthopedic CenterComment on above:Performed By: #### [id number] #### [facility] [address], [place] [address]Dxctlekfk [Moles/Vol]3.7 mmol/LNormal3.5-5.3FAdena Pike Medical CenterComment on above:Performed By: #### [id number] #### [facility] [address], [place] [address]Ralltt [Moles/Vol]144 mmol/KYutvox736-254IydkvpCrystal Clinic Orthopedic CenterComment on above:Performed By: #### [id number] #### [facility] [address], [place] [address]Yjto nitrogen [Mass/Vol]19 mg/dLNormal5-21C[facility] Clinic Orthopedic CenterComment on above:Performed By: #### [id number] #### [facility] [address], [place] [address]Fnqo nitrogen/Creatinine [Mass ratio]17 No KcuktEheeaf21-87 [facility] Orthopedic CenterComment on above:Performed By: #### [id number] #### [facility] [address], [place] [address]L. diff by PCRon 22-70-1934Nrvaqhrxbcu difficile by PCRNegative NormalNegativeCrystal Clinic Orthopedic CenterComment on above:Order Comment: Order added by Discern Expert.Result Comment: This test result should be correlated with clinical presentations and medical history by a healthcare provider to determine its clinical significance.Performed By: #### [id number] #### [facility] [address] [place] [address]MFC w/ Auto Diffon 80-36-0495Xdyqrchsr/100 WBC (Bld)0.1 %Normal 0.0-2.0C[facility] Clinic Orthopedic CenterComment on above:Performed By: #### [id number] #### [facility] [address] [place] [address]Alcirgere/Leukocytes Auto (Bld) [Pure # fraction]0.0 E9/LNormal 0.0-0.2FAdena Pike Medical CenterComment on above:Performed By: #### [id number] #### [facility] [address] [place] [address]Qawfvakwprh (Bld) [#/Vol]0.0 E9/LNormal0.0-0.5FAdena Pike Medical CenterComment on above:Performed By: #### [id number] #### [facility] [address] [place] [address]Vdyzrzyamyk/100 WBC (Bld)0.2 %Normal0.0-8.0[facility] Orthopedic CenterComment on above:Performed By: #### [id number] #### [facility] [address] [place] [address]Lifuwqwvkla distribution width (RBC) [Ratio]16.0 %High10.9-14.2 [facility] Orthopedic CenterComment on above:Performed By: #### [id number] #### [facility] [address] [place] [address]Pxvtawmehg (Bld) [Volume fraction]27.9 %Low37.7-49.0C[facility] Orthopedic CenterComment on above:Performed By: #### [id number] #### [facility] [address] [place] [address]Jaetrtemzx (Bld) [Mass/Vol]9.4 g/dLLow13.5-17.5FAdena Pike Medical CenterComment on above:Performed By: #### [id number] #### [facility] [address] [place] [address]Pgwseppxhpo (Bld) [#/Vol]1.1 E9/LNormal1.0-4.0[facility] Orthopedic CenterComment on above:Performed By: #### [id number] #### [facility] [address] [place] [address]Bfxnjnzcpwg/100 WBC (Bld)19.7 %Kwqkru31.0-50.0[facility] Orthopedic CenterComment on above:Performed By: #### [id number] #### [facility] [address] [place] [address]WWS (RBC) [Entitic mass]31.2 saAqctbe14.0-34.0[facility] Orthopedic CenterComment on above:Performed By: #### [id number] #### [facility] [address] [place] [address]HADS (RBC) [Mass/Vol]33.7 g/dNMznetu16.4-36.0[facility] CenterComment on above:Performed By: #### [id number] #### [facility] [address] [place] [address]DYL (RBC) [Entitic vol]92.4 zXUrxile64.0-100.0[facility] Orthopedic CenterComment on above:Performed By: #### [id number] #### [facility] [address] [place] [address]Idmaoutng (Bld) [#/Vol]0.3 E9/LNormal0.2-1.0[facility] Orthopedic CenterComment on above:Performed By: #### [id number] #### [facility] [address] [place] [address]Irtovbzxbio (Bld) [#/Vol]4.0 E9/LNormal2.0-7.5FAdena Pike Medical CenterComment on above:Performed By: #### [id number] #### [facility] [address] [place] [address]Ltjdbjrapqj/100 WBC (Bld)73.5 %Ccmtcl98.0-75.0[facility] Orthopedic CenterComment on above:Performed By: #### [id number] #### [facility] [address] [place] [address]Dgbyqbgz mean volume (Bld) [Entitic vol]7.8 fLNormal6.4-10.8 [facility]opedic CenterComment on above:Performed By: #### [id number] #### [facility] [address], [place] [address]Wthpqedbc (Bld) [#/Vol]295.0 E9/ORcmuwg384.0-500.0[facility] Orthopedic CenterComment on above:Performed By: #### [id number] #### [facility] [address], [place] [address]LIR (Bld) [#/Vol]3.0 E12/LLow4.3-5.9[facility] Comment on above:Performed By: #### [id number] #### [facility] [address] [place] [address]OQD corrected for nucl RBC Auto (Bld) [#/Vol]5.4 E9/LNormal 4.0-11.0[facility] Orthopedic CenterComment on above:Performed By: #### [id number] #### [facility] [address] [place] [address]IGwru PCRon 05-10-2024. difficile toxin A+B Ql (Stl)No, PCR to followNoChillicothe HospitalComment on above:Performed By: #### [id number] #### [facility] [address] [place] [address]MODUMYXHAVrxpyrk By: SYSTEM SYSTEM on 29-83-8105Lujhx gap [Moles/Vol]10 mmol/LNormal6 - 16 mEq/LRemisol ChemCalcium [Mass/Vol]8.2 mg/dLLow 8.9 - 11.1 mg/dLRemisol ChemChloride [Moles/Vol]112 mmol/RCzeh060 - 111 mmol/L Remisol ChemCO2 [Moles/Vol]26 mmol/XDxszdb31 - 31 mmol/LRemisol ChemCreatinine [Mass/Vol]1.1 mg/dLNormal0.5 - 1.3 mg/dLRemisol LfdolEFB96 mL/min/1.73 w5Rtfsjn >=59mL/min/1.73 t2Suyyltn ChemGlucose [Mass/Vol]83 mg/lYYmhaum39 - 199 mg/dL Remisol ChemPotassium [Moles/Vol]3.7 mmol/LNormal3.5 - 5.3 mmol/LRemisol Chem Sodium [Moles/Vol]144 mmol/HYvoecg757 - 145 mmol/LRemisol ChemUrea nitrogen [Mass/Vol]19 mg/dLNormal5 - 21 mg/dLRemisol ChemUrea nitrogen/Creatinine [Mass ratio]17 mg/hdEencsc57 - 20Remisol ChemHEMATOLOGYOrdered By: SYSTEM SYSTEM on 76-89-2517Mcxcrkuon/100 WBC (Bld)0.1 %Normal0.0 - 2.0 %Remisol Heme Basophils/Leukocytes Auto (Bld) [Pure # fraction]0.0 E9/LNormal0.0 - 0.2 E9/L Remisol HemeEosinophils (Bld) [#/Vol]0.0 E9/LNormal0.0 - 0.5 E9/LRemisol Heme Eosinophils/100 WBC (Bld)0.2 %Normal0.0 - 8.0 %Remisol HemeErythrocyte distribution width (RBC) [Ratio]16.0 %High10.9 - 14.2 %Remisol HemeHematocrit (Bld) [Volume fraction]27.9 %Low37.7 - 49.0 %Remisol HemeHemoglobin (Bld) [Mass/Vol]9.4 g/dLLow13.5 - 17.5 gm/dLRemisol HemeLymphocytes (Bld) [#/Vol]1.1 E9/LNormal1.0 - 4.0 E9/LRemisol HemeLymphocytes/100 WBC (Bld)19.7 %Zbtrqc84.0 - 50.0 %Remisol HemeMCH (RBC) [Entitic mass]31.2 fkKliyxc36.0 - 34.0 pgRemisol HemeMCHC (RBC) [Mass/Vol]33.7 g/lQRazhsm42.4 - 36.0 gm/dLRemisol HemeMCV (RBC) [Entitic vol]92.4 bMTydcrz16.0 - 100.0 fLRemisol HemeMonocytes (Bld) [#/Vol]0.3 E9/LNormal0.2 - 1.0 E9/LRemisol HemeMonocytes/100 WBC (Bld)6.5 %Normal4.0 - 14.0 %Remisol HemeNeutrophils (Bld) [#/Vol]4.0 E9/LNormal2.0 - 7.5 E9/LRemisol Heme Neutrophils/100 WBC (Bld)73.5 %Yujwcx66.0 - 75.0 %Remisol HemePlatelet mean volume (Bld) [Entitic vol]7.8 fLNormal6.4 - 10.8 fLRemisol HemePlatelets (Bld) [#/Vol]295.0 E9/UPrdmnf696.0 - 500.0 E9/LRemisol HemeRBC (Bld) [#/Vol]3.0 E12/L Low4.3 - 5.9 E12/LRemisol HemeWBC corrected for nucl RBC Auto (Bld) [#/Vol]5.4 E9/LNormal4.0 - 11.0 E9/LRemisol HemeInterdisciplinary Note - Case Manageron 32-28-9274Ascvxvruglpxtowwn Note - Case ManagerInterdisciplinary Note - Uniform Designer Patient is asleep in bed no family present. Previously rounded with Elizabeth MEDICAL CHEMIST and pending pulm to see. Plan to move him out of ICU today. PT/OT= SNF. Per nursing pt doing much better today,w alking around room and to and from bathroom. States he does not want SNF placement but [facility] Will continue to monitor progress. Contact information provided and white board updated, CRM followingNoChillicothe HospitalComment on above:Result Comment: Electronically Signed By: Javed METCALF, Michael.dana\Date and Time Signed: 05/10/24 11:22 ESTPTon 63-58-2950VLA Coag (PPP) [Relative time]1.22 {INR} Invalid Interpretation [facility] MiamisburgComment on above:Result Comment: INR results are specifically intended to assess patients stabilized on long-term Anticoagulation therapy suggested INR???s ???Less Intensive Anticoagulation??? 2.0 ??? 3.0 Conventional Range 3.0 ??? 4.5Performed By: #### [id number] #### [facility] [address], [place] [address]KM Coag (PPP) [Time]13.7 second(s)High9.4-12.5FAdena Pike Medical CenterComment on above:Result Comment: 15 days - 4 weeks 1 - [...] the same coagulation reagent and instrumentation as [facility]. Currently there are no coagulation studies available worldwide for children to 14 days, andno normal ranges.Performed By: #### [id number] #### [facility] [address], [place] [address]uEDMso 63-56-4785hCSF81 mL/min/1.73 p1Zedvol>=59FishSinai Hospital of BaltimoreComment on above:Performed By: #### [id number] #### [facility] [address], [place] [address]IJR w/ Auto Diffon 88-95-3606Doaipxscj/100 WBC (Bld)0.1 %Normal 0.0-2.0[facility]opedic CenterComment on above:Performed By: #### [id number] #### [facility] [address] [place] [address]Abwuneseh/Leukocytes Auto (Bld) [Pure # fraction]0.0 E9/LNormal 0.0-0.2FAdena Pike Medical CenterComment on above:Performed By: #### [id number] #### [facility] [address], [place] [address]Bqndxkeakha (Bld) [#/Vol]0.0 E9/LNormal0.0-0.5FAdena Pike Medical CenterComment on above:Performed By: #### [id number] #### [facility] [address] [place] [address]Cfdcjecifyp/100 WBC (Bld)0.0 %Normal0.0-8.0[facility] CenterComment on above:Performed By: #### [id number] #### [facility] [address] [place] [address]Lylmwmmsfym distribution width (RBC) [Ratio]15.7 %High10.9-14.2 [facility] CenterComment on above:Performed By: #### [id number] #### [facility] [address] [place] [address]Thpyfuecnq (Bld) [Volume fraction]26.1 %Low37.7-49.0[facility]opedic CenterComment on above:Performed By: #### [id number] #### [facility] [address] [place] [address] 01786Svrogbcrwm (Bld) [Mass/Vol]8.8 g/dLLow13.5-17.5FAdena Pike Medical CenterComment on above:Performed By: #### [id number] #### [facility] [address] [place] [address] 10311Qkpoqskbxuh (Bld) [#/Vol]0.9 E9/LLow1.0-4.0[facility] Orthopedic CenterComment on above:Performed By: #### [id number] #### [facility] [address] [place] [address] 77517Yyrgposlicf/100 WBC (Bld)13.0 %Low14.0-50.0[facility] CenterComment on above:Performed By: #### [id number] #### [facility] [address] [place] [address] 20981XSA (RBC) [Entitic mass]30.8 tnIhazad66.0-34.0[facility] CenterComment on above:Performed By: #### [id number] #### [facility] [address] [place] [address] 26304SFPS (RBC) [Mass/Vol]33.7 g/iLLiyvfh51.4-36.0[facility] CenterComment on above:Performed By: #### [id number] #### [facility] [address] [place] [address] 44770ZAK (RBC) [Entitic vol]91.5 vJSfjrgr10.0-100.0[facility] CenterComment on above:Performed By: #### [id number] #### [facility] [address] [place] [address] 04889Zneytnzao (Bld) [#/Vol]0.4 E9/LNormal0.2-1.0[facility] CenterComment on above:Performed By: #### [id number] #### [facility] [address] [place] [address] 67149Nkjxzacszvc (Bld) [#/Vol]5.4 E9/LNormal2.0-7.5FAdena Pike Medical CenterComment on above:Performed By: #### [id number] #### [facility] [address] [place] [address] 25391Inuocridkhw/100 WBC (Bld)81.4 %High36.0-75.0[facility] CenterComment on above:Performed By: #### [id number] #### [facility] [address] [place] [address] 30732Mtbkbinv mean volume (Bld) [Entitic vol]8.0 fLNormal6.4-10.8 [facility] CenterComment on above:Performed By: #### [id number] #### [facility] [address] [place] [address] 52195Uarkiizzz (Bld) [#/Vol]266.0 E9/AVsrvjt591.0-500.0[facility] CenterComment on above:Performed By: #### [id number] #### [facility] [address] [place], [place] [address]YDC (Bld) [#/Vol]2.9 E12/LLow4.3-5.9[facility] Comment on above:Performed By: #### [id number] #### [facility] [address], [place] [address]SVC corrected for nucl RBC Auto (Bld) [#/Vol]6.6 E9/LNormal 4.0-11.0[facility] CenterComment on above:Performed By: #### [id number] #### [facility] [address], [place] [address]XGEUYFWXYWqktwqg By: SYSTEM SYSTEM on 42-29-6265Hsjsmar [Mass/Vol]2.4 g/dLLow3.3 - 5.0 gm/dLRemisol ChemAlbumin/Globulin [Mass ratio]1.0 {ratio}Low1.1 - 2.2Remisol ChemALP [Catalytic activity/Vol]54 [iU]/dCpbsre91 - 98 Int._Unit/LRemisol ChemALT No additional P-5'-P [Catalytic activity/Vol]30 [iU]/dNormal6 - 46 Int._Unit/LRemisol ChemAST [Catalytic activity/Vol]50 [iU]/d High5 - 43 Int._Unit/LRemisol ChemBilirubin [Mass/Vol]0.3 mg/dLNormal0.0 - 1.1 mg/dLRemisol ChemCRP [Mass/Vol]3.8 mg/dLHigh<=1.9mg/dLRemisol ChemGlobulin (S) [Mass/Vol]2.4 g/dLNormal1.4 - 4.0 gm/dLRemisol ChemProtein [Mass/Vol]4.8 g/dLLow 6.0 - 7.8 gm/dLRemisol ChemCMPon 18-26-9377Lpdjfba [Mass/Vol]2.4 g/dLLow3.3-5.0 [facility] CenterComment on above:Performed By: #### [id number] #### [facility] [address], [place] [address]Ovbjhoj/Globulin (S) [Mass conc ratio]1.0Low1.1-2.2FAdena Pike Medical CenterComment on above:Performed By: #### [id number] #### [facility] [address], [place] [address]JTS [Catalytic activity/Vol]54 Int._Unit/NFqnfsu74-49ZbgkkqCrystal Clinic Orthopedic CenterComment on above:Performed By: #### [id number] #### [facility] [address], [place] [address]LVB No additional P-5'-P [Catalytic activity/Vol]30 Int._Unit/L Normal6-46[facility] CenterComment on above:Performed By: #### [id number] #### [facility] [address], [place] [address]Coqyj gap [Moles/Vol]8 mmol/LNormal6-16[facility] CenterComment on above:Performed By: #### [id number] #### [facility] [address], [place] [address]PQA [Catalytic activity/Vol]50 Int._Unit/LHigh5-43[facility] CenterComment on above:Performed By: #### [id number] #### [facility] [address], [place] [address]Wbvxmsqkj [Mass/Vol]0.3 mg/dLNormal0.0-1.1FAdena Pike Medical CenterComment on above:Performed By: #### [id number] #### [facility] [address], [place] [address]Cvmxalj [Mass/Vol]8.2 mg/dLLow8.9-11.1FAdena Pike Medical CenterComment on above:Performed By: #### [id number] #### [facility] [address], [place] [address]Arauljyi [Moles/Vol]113 mmol/PBoql143-704SpkderCrystal Clinic Orthopedic CenterComment on above:Performed By: #### [id number] #### [facility] [address], [place] [address]KW2 [Moles/Vol]26 mmol/UVjkrod94-42EsxnszCrystal Clinic Orthopedic Center Comment on above:Performed By: #### [id number] #### [facility] [address], [place] [address]Npcakfpwax [Mass/Vol]1.1 mg/dLNormal0.5-1.3FAdena Pike Medical CenterComment on above:Performed By: #### [id number] #### [facility] [address], [place] [address]Kqkcqkya (S) [Mass/Vol]2.4 g/dLNormal1.4-4.0[facility] CenterComment on above:Performed By: #### [id number] #### [facility] [address], [place] [address]Eurqvdl [Mass/Vol]96 mg/wUBjqdks57-789BhfpaeCrystal Clinic Orthopedic CenterComment on above:Performed By: #### [id number] #### [facility] [address], [place] [address]Asrzbzlry [Moles/Vol]3.2 mmol/LLow3.5-5.3FAdena Pike Medical CenterComment on above:Performed By: #### [id number] #### [facility] [address], [place] [address]Oajisht [Mass/Vol]4.8 g/dLLow6.0-7.8[facility] Comment on above:Performed By: #### [id number] #### [facility] [address], [place] [address]Cjolpg [Moles/Vol]144 mmol/BSxedef257-301ZcnkkhCrystal Clinic Orthopedic CenterComment on above:Performed By: #### [id number] #### [facility] [address], [place] [address]Efem nitrogen [Mass/Vol]26 mg/dLHigh5-21[facility] CenterComment on above:Performed By: #### [id number] #### [facility] [address], [place] [address]Dorr nitrogen/Creatinine [Mass ratio]24 No ZbvoqGikg11-00OqgnxxCrystal Clinic Orthopedic CenterComment on above:Performed By: #### [id number] #### [facility] [address], [place] [address]VGSwb 37-41-3024MDQ [Mass/Vol]3.8 mg/dLHigh<=1.9[facility] CenterComment on above:Performed By: #### [id number] #### [facility] [address], [place] [address]HDYEUNKRRSVinzkjf By: SYSTEM SYSTEM on 13-78-9894Cwkssqujd/100 WBC (Bld)0.1 %Normal0.0 - 2.0 %Remisol HemeBasophils/Leukocytes Auto (Bld) [Pure # fraction]0.0 E9/LNormal0.0 - 0.2 E9/LRemisol HemeEosinophils (Bld) [#/Vol]0.0 E9/LNormal0.0 - 0.5 E9/LRemisol HemeEosinophils/100 WBC (Bld)0.0 %Normal0.0 - 8.0 %Remisol HemeErythrocyte distribution width (RBC) [Ratio]15.7 %High10.9 - 14.2 %Remisol HemeLymphocytes (Bld) [#/Vol]0.9 E9/LLow1.0 - 4.0 E9/LRemisol Heme Lymphocytes/100 WBC (Bld)13.0 %Low14.0 - 50.0 %Remisol HemeMCH (RBC) [Entitic mass]30.8 meKtxozq93.0 - 34.0 pgRemisol HemeMCHC (RBC) [Mass/Vol]33.7 g/dLNormal 31.4 - 36.0 gm/dLRemisol HemeMCV (RBC) [Entitic vol]91.5 dYBdekfm63.0 - 100.0 fL Remisol HemeMonocytes (Bld) [#/Vol]0.4 E9/LNormal0.2 - 1.0 E9/LRemisol Heme Monocytes/100 WBC (Bld)5.5 %Normal4.0 - 14.0 %Remisol HemeNeutrophils (Bld) [#/Vol]5.4 E9/LNormal2.0 - 7.5 E9/LRemisol HemeNeutrophils/100 WBC (Bld)81.4 % High36.0 - 75.0 %Remisol HemePlatelet mean volume (Bld) [Entitic vol]8.0 fL Normal6.4 - 10.8 fLRemisol HemePlatelets (Bld) [#/Vol]266.0 E9/AUvfzwh055.0 - 500.0 E9/LRemisol HemeRBC (Bld) [#/Vol]2.9 E12/LLow4.3 - 5.9 E12/LRemisol Heme WBC corrected for nucl RBC Auto (Bld) [#/Vol]6.6 E9/LNormal4.0 - 11.0 E9/L Remisol HemeInterdisciplinary Note - Case Manageron 80-86-7907Pfxvqtingxpajcqws Note - Case ManagerInterdisciplinary Note - Uniform Designer Patient is alert and oriented in bed, previously rounded with [facility]. Patient is from home with and daughters, [facility] Pt was supposed to have bronch today, [...] discussed. Contact information provided and white board updated.Berger HospitalComment on above:Result Comment: Electronically Signed By: Javed METCALF, Vee\.dana\Date and Time Signed: 05/09/24 12:01 Julio 56-23-1828CLR Coag (PPP) [Relative time]6.51 {INR}AbnormalCrystal Clinic Orthopedic CenterComment on above:Result Comment: Results Called To Stefan Jordan By muna And Read Back For Confirmation On 05/09/2024 05:51:17 EST Results Verified By Repeat Analysis INR results are specifically intended to assess patients stabilized on long-term Anticoagulation therapy suggested INR???s ???Less Intensive Anticoagulation??? 2.0 ??? 3.0 Conventional Range 3.0 ??? 4.5Performed By: #### [id number] #### [facility] [address] [place], [place] [address]VQ Coag (PPP) [Time]74.3 second(s)Abnormal9.4-12.5Fisher [facility] HospitalComment on above:Result Comment: Results Called To Stefan Jordan By muna And [...] the same coagulation reagent and instrumentation as [facility]. Currently there are no coagulation studies available worldwide for children to 14 days, andno normal ranges.Performed By: #### [id number] #### [facility] [address] [place], [place] [address]E Legi Agon 05-09-2024L. pneumophila 1 Ag IA Ql (U)Negative Invalid Interpretation CodeNegativeCrystal Clinic Orthopedic CenterComment on above: Result Comment: Presumptive negative for L. pneumophila serogroup 1 antigen in urine, suggesting no recent or current infection. Legionnaires' disease cannot be ruled out since other serogroups and species may also cause disease. Performed at: [address] [id number] MD Anthony Zamoraformed By: #### [id number] #### [facility] [address] [place], [place] [address]tXVUvu 19-41-4315kPGA57 mL/min/1.73 k5Kdiyae>=59[facility]opedic CenterComment on above:Performed By: #### [id number] #### [facility] [address] [place], [place] [address]UQNwx 64-91-7294Fdzek gap [Moles/Vol]11 mmol/LNormal6-16[facility] CenterComment on above:Performed By: #### [id number] #### [facility] [address] [place], [place] [address]Aouuybg [Mass/Vol]8.5 mg/dLLow8.9-11.1FAdena Pike Medical CenterComment on above:Performed By: #### [id number] #### [facility] [address] [place], [place] [address]Wuxuehxt [Moles/Vol]108 mmol/SXdnuhm850-124UjdfnaCrystal Clinic Orthopedic CenterComment on above:Performed By: #### [id number] #### [facility] [address] [place], [place] [address]PU0 [Moles/Vol]26 mmol/GYzfcjl87-25BxaeraCrystal Clinic Orthopedic Center Comment on above:Performed By: #### [id number] #### [facility] [address] [place], [place] [address]Sozdayjbmx [Mass/Vol]1.1 mg/dLNormal0.5-1.3FAdena Pike Medical CenterComment on above:Performed By: #### [id number] #### [facility] [address] [place], [place] [address]Wyqsxvq [Mass/Vol]129 mg/zRBgisgs08-875NjxjzwCrystal Clinic Orthopedic CenterComment on above:Performed By: #### [id number] #### [facility] [address] [place], [place] [address]Jhcljqlfx [Moles/Vol]4.1 mmol/LNormal3.5-5.3FAdena Pike Medical CenterComment on above:Performed By: #### [id number] #### [facility] [address] [place], [place] [address]Bkopun [Moles/Vol]141 mmol/TDbcgrs782-335JsjechCrystal Clinic Orthopedic CenterComment on above:Performed By: #### [id number] #### [facility] [address] [place], [place] [address]Xnxn nitrogen [Mass/Vol]29 mg/dLHigh5-21[facility] CenterComment on above:Performed By: #### [id number] #### [facility] [address] [place], [place] [address]Lkbg nitrogen/Creatinine [Mass ratio]26 No LoptpIwbm59-85LqirhnCrystal Clinic Orthopedic CenterComment on above:Performed By: #### [id number] #### [facility] [address] [place], [place] [address]HZP w/ Auto Diffon 44-99-1922Ckcjwwpmf/100 WBC (Bld)0.1 %Normal 0.0-2.0[facility] CenterComment on above:Performed By: #### [id number] #### [facility] [address] [place], [place] [address]Uvokapdcv/Leukocytes Auto (Bld) [Pure # fraction]0.0 E9/LNormal 0.0-0.2FAdena Pike Medical CenterComment on above:Performed By: #### [id number] #### [facility] [address] [place] [address]Audabqzlvda (Bld) [#/Vol]0.0 E9/LNormal0.0-0.5FAdena Pike Medical CenterComment on above:Performed By: #### [id number] #### [facility] [address] [place], [place] [address]Wawbdvwwboo/100 WBC (Bld)0.0 %Normal0.0-8.0[facility] CenterComment on above:Performed By: #### [id number] #### [facility] [address] [place], [place] [address]Bzgsfjgjpcp distribution width (RBC) [Ratio]15.4 %High10.9-14.2 [facility] CenterComment on above:Performed By: #### [id number] #### [facility] [address] [place] [address]Mcwygzlbqy (Bld) [Volume fraction]30.8 %Low37.7-49.0[facility] CenterComment on above:Performed By: #### [id number] #### [facility] [address] [place] [address]Dxmnjlplvr (Bld) [Mass/Vol]10.3 g/dLLow13.5-17.5FAdena Pike Medical CenterComment on above:Performed By: #### [id number] #### [facility] [address] [place] [address]Efxyljgmqze (Bld) [#/Vol]1.1 E9/LNormal1.0-4.0[facility] CenterComment on above:Performed By: #### [id number] #### [facility] [address] [place] [address]Aajgbhyegmi/100 WBC (Bld)10.4 %Low14.0-50.0[facility] CenterComment on above:Performed By: #### [id number] #### [facility] [address] [place] [address]KIZ (RBC) [Entitic mass]30.8 hjUppvtz82.0-34.0[facility] CenterComment on above:Performed By: #### [id number] #### [facility] [address] [place] [address]XEDE (RBC) [Mass/Vol]33.5 g/tVThwqzj26.4-36.0[facility] CenterComment on above:Performed By: #### [id number] #### [facility] [address] [place] [address]LNI (RBC) [Entitic vol]91.9 gZUnolhi43.0-100.0[facility] CenterComment on above:Performed By: #### [id number] #### [facility] [address] [place] [place], [place] [address]Fbyvtdmau (Bld) [#/Vol]0.3 E9/LNormal0.2-1.0[facility] CenterComment on above:Performed By: #### [id number] #### [facility] [address] [place] [address]Iiqcqxmfqda (Bld) [#/Vol]9.3 E9/LHigh2.0-7.5FAdena Pike Medical CenterComment on above:Performed By: #### [id number] #### [facility] [address] [place], [place] [address]Xfdhngkwceb/100 WBC (Bld)86.6 %High36.0-75.0[facility] CenterComment on above:Performed By: #### [id number] #### [facility] [address] [place] [address]Xnazludn540.0 E9/WScdbbr798.0-500.0[facility] Comment on above:Performed By: #### [id number] #### [facility] [address] [place] [address]Cmxjlslj mean volume (Bld) [Entitic vol]8.6 fLNormal6.4-10.8 [facility] CenterComment on above:Performed By: #### [id number] #### [facility] [address] [place], [place] [address]ICM (Bld) [#/Vol]3.4 E12/LLow4.3-5.9[facility] Comment on above:Performed By: #### [id number] #### [facility] [address] [place] [address]THZ corrected for nucl RBC Auto (Bld) [#/Vol]10.8 E9/LNormal 4.0-11.0[facility] CenterComment on above:Performed By: #### [id number] #### [facility] [address] [place] [address]19[address]RNEFKRZFLYxleroa By: SYSTEM SYSTEM on 38-01-6826Ptlozea [Mass/Vol]2.8 g/dLLow3.3 - 5.0 gm/dLRemisol ChemAlbumin/Globulin [Mass ratio]1.0 {ratio}Low1.1 - 2.2Remisol ChemALP [Catalytic activity/Vol]70 [iU]/mEbqizj66 - 98 Int._Unit/LRemisol ChemALT No additional P-5'-P [Catalytic activity/Vol]38 [iU]/dNormal6 - 46 Int._Unit/LRemisol ChemAST [Catalytic activity/Vol]73 [iU]/d High5 - 43 Int._Unit/LRemisol ChemBilirubin [Mass/Vol]0.4 mg/dLNormal0.0 - 1.1 mg/dLRemisol ChemBilirubin.direct [Mass/Vol]0.1 mg/dLNormal0.0 - 0.4 mg/dL Remisol ChemBilirubin.indirect [Mass or moles/Vol]0.3 mg/dLNormal0.1 - 0.9 mg/dL Remisol ChemGlobulin (S) [Mass/Vol]2.9 g/dLNormal1.4 - 4.0 gm/dLRemisol Chem Protein [Mass/Vol]5.7 g/dLLow6.0 - 7.8 gm/dLRemisol ChemCortisolon 05-08-2024 Cortisol [Mass/Vol]24.1 microgram/dLHigh6.2-19.4[facility] Comment on above:Result Comment: Please Note: The reference interval and flagging for this test is for an AM collection. If this is a PM collection please use: Cortisol PM: 2.3-11.9 Performed at: [facility] [address], [place] [id number] PhD Brandyn MaderaPerformed By: #### [id number] #### [facility] [address] [place] [address]RETMMDCEJNKxejxyd By: Daniella Steward on 15-07-1847Nbgnseqqo/100 WBC (Bld)0.1 %Normal0.0 - 2.0 %Remisol HemeBasophils/Leukocytes Auto (Bld) [Pure # fraction]0.0 E9/LNormal0.0 - 0.2 E9/LRemisol HemeEosinophils (Bld) [#/Vol]0.0 E9/LNormal0.0 - 0.5 E9/LRemisol HemeEosinophils/100 WBC (Bld)0.0 %Normal0.0 - 8.0 %Remisol HemeErythrocyte distribution width (RBC) [Ratio]15.4 %High10.9 - 14.2 %Remisol HemeLymphocytes (Bld) [#/Vol]1.1 E9/LNormal1.0 - 4.0 E9/LRemisol HemeLymphocytes/100 WBC (Bld)10.4 %Low14.0 - 50.0 %Remisol HemeMCH (RBC) [Entitic mass]30.8 raXuhbnb00.0 - 34.0 pgRemisol HemeMCHC (RBC) [Mass/Vol]33.5 g/uTSfxjjp64.4 - 36.0 gm/dLRemisol HemeMCV (RBC) [Entitic vol]91.9 sBLiuqze20.0 - 100.0 fLRemisol HemeMonocytes (Bld) [#/Vol]0.3 E9/LNormal0.2 - 1.0 E9/LRemisol HemeMonocytes/100 WBC (Bld)2.9 %Low4.0 - 14.0 %Remisol HemeNeutrophils (Bld) [#/Vol]9.3 E9/LHigh2.0 - 7.5 E9/LRemisol HemeNeutrophils/100 WBC (Bld)86.6 %High 36.0 - 75.0 %Remisol YatzMiiawyos453.0 E9/FFmjzpi450.0 - 500.0 E9/LRemisol Heme Platelet mean volume (Bld) [Entitic vol]8.6 fLNormal6.4 - 10.8 fLRemisol HemeRBC (Bld) [#/Vol]3.4 E12/LLow4.3 - 5.9 E12/LRemisol HemeWBC corrected for nucl RBC Auto (Bld) [#/Vol]10.8 E9/LNormal4.0 - 11.0 E9/LRemisol HemeHep Func Panelon 14-04-7346Bczxsuf [Mass/Vol]2.8 g/dLLow3.3-5.0[facility] CenterComment on above:Performed By: #### [id number] #### [facility] [address] [place], [place] [address]Akhauxv/Globulin (S) [Mass conc ratio]1.0Low1.1-2.2FAdena Pike Medical CenterComment on above:Performed By: #### [id number] #### [facility] [address], [place] [address]HDW [Catalytic activity/Vol]70 Int._Unit/EItnmbt65-51WqnvkhCrystal Clinic Orthopedic CenterComment on above:Performed By: #### [id number] #### [facility] [address] [place], [place] [address]JXH No additional P-5'-P [Catalytic activity/Vol]38 Int._Unit/L Normal6-46[facility] CenterComment on above:Performed By: #### [id number] #### [facility] [address], [place] [address]GDV [Catalytic activity/Vol]73 Int._Unit/LHigh5-43[facility] CenterComment on above:Performed By: #### [id number] #### [facility] [address] [place], [place] [address]Dqqyceazt [Mass/Vol]0.4 mg/dLNormal0.0-1.1FAdena Pike Medical CenterComment on above:Performed By: #### [id number] #### [facility] [address], [place] [address]Luunvuqly.direct [Mass/Vol]0.1 mg/dLNormal0.0-0.4FAdena Pike Medical CenterComment on above:Performed By: #### [id number] #### [facility] [address] [place], [place] [address]Bwqexokcx.indirect [Mass or moles/Vol]0.3 mg/dLNormal0.1-0.9 [facility] CenterComment on above:Performed By: #### [id number] #### [facility] [address] [place], [place] [address]Qgkrxkss (S) [Mass/Vol]2.9 g/dLNormal1.4-4.0[facility] CenterComment on above:Performed By: #### [id number] #### [facility] [address] [place], [place] [address]Btcddks [Mass/Vol]5.7 g/dLLow6.0-7.8[facility] Comment on above:Performed By: #### [id number] #### [facility] [address], [place] [address]Noewumsmeihnrxgii Note - Case Manageron 05-08-2024 Interdisciplinary Note - Case ManagerInterdisciplinary Note - Uniform Designer Patient is awake and alert in bed, previously rounded with Corie COOK TACO. Patient is feeling better today. Discussed did better with therapy today and pt remains [facility] Updated CRM diddiscuss with and she was also considering. Aware will remain in hospital few more days. Pt prefers to monitor progress daily to see where he will be at [place], Discussed SNF and HH. Aware prec[facility] if [facility]. Medicare rights reviewed. . PCP verified and insurance information reviewed and DME discussed. Contact information provided and white board updated.[facility] Comment on above:Result Comment: Electronically Signed By: Javed METCALF, Vee\.dana\Date and Time Signed: 05/08/24 11:08 ESTMRSA Screenon [id number] DNA JACQUELINE+probe Ql (Unsp spec)Microbiology PROCEDURE: MRSA Screen [R1] SOURCE: Nasal BODY SITE: COLLECTED DATE/TIME: 05/06/2024 14:53 EST RECEIVED DATE/TIME: 05/06/2024 15:40 EST START DATE/TIME: 05/06/2024 15:40 EST FREE TEXT SOURCE: ORESTES NELSON-YASMANI, Elizabeth OGLESBY, Elizabeth FINAL REPORTS Final Report [] Verified Date/Time: 05/08/2024 09:44 EST MRSA Negative. Performing Locations R1: This test was performed at: [facility], [address] [place] [address], [id number] , , AeohazVtqnlsChillicothe HospitalComment on above:Performed By: #### [id number] #### [address] [address]UThb 60-67-1295IYB Coag (PPP) [Relative time]5.94 {INR}Abnormal [facility] CenterComment on above:Result Comment: Results Called To Swetha Calles By And Read Back For Confirmation On 05/08/2024 06:55:46 EST Results Verified By Repeat Analysis INR results are specifically intended to assess patients stabilized on long-term Anticoagulation therapy suggested INR???s ???Less Intensive Anticoagulation??? 2.0 ??? 3.0 Conventional Range 3.0 ??? 4.5Performed By: #### [id number] #### [facility] [address] [place] [address]XU Coag (PPP) [Time]67.7 second(s)Abnormal9.4-12.5FAdena Pike Medical CenterComment on above:Result Comment: Results Called To Swetha Calles By GREG And [...] the same coagulation reagent and instrumentation as [facility]. Currently there are no coagulation studies available worldwide for children to 14 days, andno normal ranges.Performed By: #### [id number] #### [facility] [address] [place], [place] [address]iJUJik 08-84-9879uZUN29 mL/min/1.73 m5Kylguo>=59[facility] Orthopedic CenterComment on above:Performed By: #### [id number] #### [facility] [address] [place], [place] [address]DWWfj 35-97-9594Qcojm gap [Moles/Vol]10 mmol/LNormal6-16[facility] CenterComment on above:Performed By: #### [id number] #### [facility] Laboratory [address], [place] [address]Rjewnaj [Mass/Vol]8.1 mg/dLLow8.9-11.1Fisher Holy Cross HospitalComment on above:Performed By: #### [id number] #### [facility] Laboratory [address], [place] [address]Bneoioov [Moles/Vol]106 mmol/DQtsdnj581-410SdzzjaCrystal Clinic Orthopedic CenterComment on above:Performed By: #### [id number] #### [facility] Laboratory [address], [place] [address]CB8 [Moles/Vol]26 mmol/HMnccfd30-13FzihsiCrystal Clinic Orthopedic Center Comment on above:Performed By: #### [id number] #### [facility] Laboratory [address], [place] [address]Xceqnzgffn [Mass/Vol]1.0 mg/dLNormal0.5-1.3Fisher Holy Cross HospitalComment on above:Performed By: #### [id number] #### [facility] Laboratory [address], [place] [address]Hzundvd [Mass/Vol]137 mg/vCDhknrx14-449OnxdetCrystal Clinic Orthopedic CenterComment on above:Performed By: #### [id number] #### [facility] Laboratory [address], [place] [address]Craqswfee [Moles/Vol]4.0 mmol/LNormal3.5-5.3FAdena Pike Medical CenterComment on above:Performed By: #### [id number] #### [facility] Laboratory [address] [place] [address]Zrhyvw [Moles/Vol]138 mmol/RTbldlh811-668AyoqhcCrystal Clinic Orthopedic CenterComment on above:Performed By: #### [id number] #### [facility] Laboratory [address] [place] [address]Cayo nitrogen [Mass/Vol]30 mg/dLHigh5-21C[facility] Orthopedic CenterComment on above:Performed By: #### [id number] #### [facility] Laboratory [address] [place] [address]Muzx nitrogen/Creatinine [Mass ratio]30 No IqbnmKhmq72-79OfjzfcCrystal Clinic Orthopedic CenterComment on above:Performed By: #### [id number] #### [facility] Laboratory [address] [place] [address]GXM w/ Auto Diffon 11-62-4929Vnpbsdqnz/100 WBC (Bld)0.1 %Normal 0.0-2.0[facility]opedic CenterComment on above:Performed By: #### [id number] #### [facility] Laboratory [address] [place] [address]Bttwlztvy/Leukocytes Auto (Bld) [Pure # fraction]0.0 E9/LNormal 0.0-0.2FAdena Pike Medical CenterComment on above:Performed By: #### [id number] #### [facility] Laboratory [address] [place] [address]Ssmtbyoljkd (Bld) [#/Vol]0.0 E9/LNormal0.0-0.5FAdena Pike Medical CenterComment on above:Performed By: #### [id number] #### [facility] Laboratory [address] [place] [address]Mxwvzesjfmm/100 WBC (Bld)0.0 %Normal0.0-8.0[facility] CenterComment on above:Performed By: #### [id number] #### [facility] Laboratory [address] [place] [address]Sqrmqutktay distribution width (RBC) [Ratio]15.6 %High10.9-14.2 [facility] CenterComment on above:Performed By: #### [id number] #### [facility] Laboratory [address] [place] [address]Efgawgofor (Bld) [Volume fraction]30.3 %Low37.7-49.0[facility] CenterComment on above:Performed By: #### [id number] #### [facility] Laboratory [address] [place] [address]Hcgnemdxkw (Bld) [Mass/Vol]10.2 g/dLLow13.5-17.5FAdena Pike Medical CenterComment on above:Performed By: #### [id number] #### [facility] Laboratory [address] [place] [address]Gozywkjkqcz (Bld) [#/Vol]0.9 E9/LLow1.0-4.0[facility] CenterComment on above:Performed By: #### [id number] #### [facility] Laboratory [address] [place] [address]Epfgzglolxp/100 WBC (Bld)16.6 %Imadhy47.0-50.0[facility] CenterComment on above:Performed By: #### [id number] #### [facility] Laboratory [address] [place] [address]RGG (RBC) [Entitic mass]31.3 fpTeuhup97.0-34.0[facility] CenterComment on above:Performed By: #### [id number] #### [facility] Laboratory [address] [place] [address]YLMQ (RBC) [Mass/Vol]33.8 g/vYHrpgvm63.4-36.0[facility] CenterComment on above:Performed By: #### [id number] #### [facility] Laboratory [address] [place] [address]URZ (RBC) [Entitic vol]92.6 cGEybzsp69.0-100.0[facility] CenterComment on above:Performed By: #### [id number] #### [facility] Laboratory [address] [place] [address]Vpjvopsjr (Bld) [#/Vol]0.1 E9/LLow0.2-1.0[facility] CenterComment on above:Performed By: #### [id number] #### [facility] Laboratory [address] [place] [address]Xaefhototte (Bld) [#/Vol]4.4 E9/LNormal2.0-7.5FAdena Pike Medical CenterComment on above:Performed By: #### [id number] #### [facility] Laboratory [address] [place] [address]Hwcqwqgizkl/100 WBC (Bld)80.8 %High36.0-75.0[facility] CenterComment on above:Performed By: #### [id number] #### [facility] Laboratory [address] [place] [address]Ccxlktgt mean volume (Bld) [Entitic vol]8.2 fLNormal6.4-10.8 [facility] CenterComment on above:Performed By: #### [id number] #### [facility] Laboratory [address] [place] [address]Ffyemabdo (Bld) [#/Vol]220.0 E9/BUzuakj689.0-500.0[facility] CenterComment on above:Performed By: #### [id number] #### [facility] Laboratory [address] [place] [address]TIG (Bld) [#/Vol]3.3 E12/LLow4.3-5.9[facility] Comment on above:Performed By: #### [id number] #### [facility] Laboratory [address] [place] [address]WRO corrected for nucl RBC Auto (Bld) [#/Vol]5.4 E9/LNormal 4.0-11.0[facility] CenterComment on above:Performed By: #### [id number] #### [facility] Laboratory [address], [place] [address]RZYPOZMGAUvkzjix By: SYSTEM SYSTEM on 61-20-4597DIZ [Mass/Vol] 12.3 mg/dLHigh<=1.9mg/dLRemisol ChemCOAGULATIONOrdered By: Shelbi Lemons on 87-13-5010xQBY Coag (PPP) [Time]42.1 sHigh25.1 - 36.5 second(s)[facility] Auto Coag Comment on above:Interpretive Data: Parameter 15 days - 4 weeks 1 - [...] the same coagulation reagent and instrumentation as [facility]. Currently there are no coagulation studies available worldwide for children to 14 days, andno normal ranges. Heparin therapeutic range (represented by Anti-Factor Xa activity of 0.2 - 0.4 U/mL) corresponds to PTT of 56.6 - 109.0 sec.CRPon 29-16-8256SLH [Mass/Vol]12.3 mg/dLHigh<=1.9[facility] CenterComment on above:Performed By: #### [id number] #### [facility] Laboratory [address], [place] [address]Gqxjvdbzlktqhreoj Note - Case Manageron 05-07-2024 Interdisciplinary Note - Case ManagerInterdisciplinary Note - Uniform Designer Patient is awake and alert in bed, previously rounded with [facility]. Pt is getting cardiac echo at this [...] updated. CRM attempted to contact pt Zuly [phone], no answer, VM left with contact information. CRM received return call from pt . Pt has never done SNF in past. She is unsure if wants SNF, discussed at length along with options and HH care. will think about overnight and discuss with family, and will update CRM tomorrow. CRM followingBerger HospitalComment on above:Result Comment: Electronically Signed By: Vee Burt RN\.dana\Date and Time Signed: 05/07/24 15:30 ESTInterdisciplinary Note - Case ManagerInterdisciplinary Note - Uniform Designer Patient is awake and alert in bed, previously rounded with [facility] CHEMI[facility]. Pt is getting cardiac echo at this [...] updated. CRM attempted to contact pt Zuly [phone], no answer, left with contact information.Berger HospitalComment on above:Result Comment: Electronically Signed By: Vee Burt RN\.br\Date and Time Signed: 05/07/24 12:00 ESTInterdisciplinary Note - OTon 05-82-9922Btpkvmdzzxcfzvhen Note - OTInterdisciplinary Note - OT Ot [facility] six clicks score 16/24 = SNF. Patient requires increased assist w/ all adls and transfers when compared to baseline. Pt is limited by weakness and decreased activity tolerance. Inpatient OT services to follow daily to progress w/ functional skills as medical status improves.Berger HospitalMICRO OTHER TESTSOrdered By: Mihaela Randhawa on 35-16-0835Mbuvdu blood panel (Stl)Positive *ABN* (05/07/24 12:49 PM)Invalid Interpretation CodeNegativeIN[facility] Man SeroPT & PTTon 71-30-5291fPHU Coag (PPP) [Time]42.1 second(s)High25.1-36.5FAdena Pike Medical CenterComment on above:Result Comment: Parameter 15 days - 4 weeks 1 - [...] the same coagulation reagent and instrumentation as [facility]. Currently there are no coagulation studies available worldwide for children to 14 days, andno normal ranges. Heparin therapeutic range (represented by Anti-Factor Xa activity of 0.2 - 0.4 U/mL) corresponds to PTT of 56.6 - 109.0 sec.Performed By: #### [id number] #### [facility] Laboratory [address], [place] [address]CCE Coag (PPP) [Relative time]3.26 {INR}Invalid Interpretation CodeFishSinai Hospital of BaltimoreComment on above:Result Comment: INR results are specifically intended to assess patients stabilized on long-term Anticoagulation therapy suggested INR???s ???Less Intensive Anticoagulation??? 2.0 ??? 3.0 Conventional Range 3.0 ??? 4.5Performed By: #### [id number] #### [facility] Laboratory [address], [place] [address]UN Coag (PPP) [Time]37.0 second(s)High9.4-12.5FAdena Pike Medical CenterComment on above:Result Comment: 15 days - 4 weeks 1 - [...] the same coagulation reagent and instrumentation as [facility]. Currently there are no coagulation studies available worldwide for children to 14 days, andno normal ranges.Performed By: #### [id number] #### [facility] Laboratory [address], [place] [address]Bskmhpoxz Laboratory TestingOrdered By: Generated DomainUser on 05-07-2024L. pneumophila 1 Ag IA Ql (U)NegativeInvalid Interpretation Code NegativeINTEGRIS B[facility] SendOutsSSComment on above:Result Comment: Presumptive negative for L. pneumophila serogroup 1 antigen in urine, suggesting no recent or current infection. Legionnaires' disease cannot be ruled out since other serogroups and species may also cause disease. Performed at: [address] [id number] MD Anthony Alexander Oclt [facility] 37-02-9943Pugkwe blood panel (Stl) PositiveAbnormalNegativeCrystal Clinic Orthopedic CenterComment on above:Performed By: #### [id number] #### [facility] Laboratory [address], [place] [address]SI with Cult Rflxon 85-74-2561Rfwnrbbqx Ql (U)NegativeNormal NegativeCrystal Clinic Orthopedic CenterComment on above:Performed By: #### [id number] #### [facility] Laboratory [address], [place] [address]Sxvlxyo (U)TurbidAbnormalClearFisher [facility] Cross Hospital Comment on above:Performed By: #### [id number] #### [facility] Laboratory [address], [place] [address]Icyza (U)YellowNormalYellowCrystal Clinic Orthopedic CenterComment on above:Result Comment: Microscopic readings are only performed on those samples that meet specific criteria set forth by [facility] Laboratory.Performed By: #### [id number] #### [facility] Laboratory [address], [place] [address]Hjyibjga.amorphous Computer assisted Ql (U)PresentAbnormal [facility] CenterComment on above:Performed By: #### [id number] #### [facility] Laboratory [address], [place] [address]Yvszjjm Ql (U)NegativeNormalNegativeC[facility] Comment on above:Performed By: #### [id number] #### [facility] Laboratory [address], [place] [address]Sgwdpnwn casts Computer assisted Ql (U)-20AbnormalCrystal Clinic Orthopedic CenterComment on above:Performed By: #### [id number] #### [facility] Laboratory [address], [place] [address]Riditjrjmi Auto test strip (U) [Mass/Vol]NegativeNormalNegative [facility] CenterComment on above:Performed By: #### [id number] #### [facility] Laboratory [address], [place] [address]Jqzvdzj Auto test strip Ql (U)NegativeNormalNegativeCrystal Clinic Orthopedic CenterComment on above:Performed By: #### [id number] #### [facility] Laboratory [address], [place] [address]Tzjwquhsz esterase Auto test strip Ql (U)NegativeNormalNegative [facility] CenterComment on above:Performed By: #### [id number] #### [facility] Laboratory [address], [place] [address]Qlyii Auto Ql (U)2+AbnormalNegDayton Children's Hospital Comment on above:Performed By: #### [id number] #### [facility] Laboratory [address], [place] [address]Zrleosj Auto test strip Ql (U)NegativeNormalNegativeCrystal Clinic Orthopedic CenterComment on above:Performed By: #### [id number] #### [facility] Laboratory [address] [place] [address]dL (U)5.5 [pH]Invalid Interpretation Code5.0-9.0[facility] CenterComment on above:Performed By: #### [id number] #### [facility] Laboratory [address] [place] [address]Dyndevw Ql (U)1+ mg/dLAbnormalNegativeCrystal Clinic Orthopedic CenterComment on above:Performed By: #### [id number] #### [facility] Laboratory [address] [place] [address]QZW Ql (U)9-82Rwrhlqlm2-7Qztygc Holy Cross HospitalComment on above:Performed By: #### [id number] #### [facility] Laboratory [address] [place] [address]Kvpewrqv gravity (U) [Rel density]>1.910Edzvnl1.005-1.030[facility] CenterComment on above:Performed By: #### [id number] #### [facility] Laboratory [address] [place] [address]Yhlfeetbxqfg (U) [Mass/Vol]NegativeNormalNegativeCrystal Clinic Orthopedic CenterComment on above:Performed By: #### [id number] #### [facility] Laboratory [address] [place] [address]CJP Auto (Urine sed) [#/Area]4-0Oyzifg2-2Nzldgg [facility] Cross HospitalComment on above:Performed By: #### [id number] #### [facility] Laboratory [address] [place] [address]YBWVTTCSFAOwqcyeq By: SYSTEM SYSTEM on 98-16-6798Iwxdlryli Ql (U)NegativeNormalNegativemg/dLFTMC UA Auto SSClarity (U)Clear (05/07/24 10:54 AM)NormalClearFTMC UA Auto SSColor (U)Yellow 1 (05/07/24 10:54 AM)NormalYellowFT UA Auto SSComment on above:Interpretive Data: Microscopic readings are only performed on those samples that meet specific criteria set forth by [facility] Laboratory.Glucose Ql (U) NegativeNormalNegativemg/dLFT UA Auto SSHemoglobin Auto test strip (U) [Mass/Vol]NegativeNormalNegativemg/dLFTMC UA Auto SSKetones Auto test strip Ql (U)NegativeNormalNegativemg/dLFTMC UA Auto SSLeukocyte esterase Auto test strip Ql (U)NegativeNormalNegativeLeu/uLFTMC UA Auto SSMucus Auto Ql (U)Trace graded/LPFNormalNegativegraded/LPFFTMC UA Auto SSNitrite Auto test strip Ql (U) NegativeNormalNegativemg/dLFTMC UA Auto SSpH (U)5.5 *NA* (05/07/24 10:54 AM)Invalid Interpretation Code5.0 - 9.0[facility] UA Auto SSProtein Ql (U)1+ mg/dLInvalid Interpretation CodeNegativemg/dLFTMC UA Auto SSSpecific gravity (U) [Rel density]1.039 *NA* (05/07/24 10:54 AM)Invalid Interpretation Code1.005 - 1.030FT UA Auto SS Urobilinogen (U) [Mass/Vol]NegativeNormalNegativemg/dLFT UA Auto SSWBC Auto (Urine sed) [#/Area]0-5 graded/HPFNormal0-5graded/HPFFT UA Auto SSURINALYSIS Ordered By: Marcela Carpenter on 34-14-5620NO Spec DescFoley (05/07/24 10:54 AM)NormalFT UA Auto SSURINALYSISOrdered By: Ashanti Santillan on 45-10-2101Denxffayz Ql (U)NegativeNormalNegativemg/dLFT UA Auto SSClarity (U) Turbid *ABN* (05/07/24 3:12 AM)Invalid Interpretation CodeClearFC UA Auto SSColor (U)Yellow 2 (05/07/24 3:12 AM)NormalYellowFTMC UA Auto SSComment on above:Interpretive Data: Microscopic readings are only performed on those samples that meet specific criteria set forth by [facility] Laboratory.Crystals.amorphous Computer assisted Ql (U)Present graded/HPFInvalid Interpretation CodeINTEGRIS [facility] UA Auto SSGlucose Ql (U)NegativeNormalNegativemg/dLINTEGRIS [facility] UA Auto SSGranular casts Computer assisted Ql (U)11-20 graded/LPFInvalid Interpretation CodeINTEGRIS [facility] UA Auto SSHemoglobin Auto test strip (U) [Mass/Vol]Negative (05/07/24 3:12 AM)NormalNegativeINTEGRIS [facility] UA Auto SSKetones Auto test strip Ql (U) NegativeNormalNegativemg/dLINTEGRIS [facility] UA Auto SSLeukocyte esterase Auto test strip Ql (U)Negative (05/07/24 3:12 AM)NormalNegativeIN[facility] UA Auto SSMucus Auto Ql (U)2+ *ABN* (05/07/24 3:12 AM)Invalid Interpretation CodeNegativeIN[facility] UA Auto SSNitrite Auto test strip Ql (U)NegativeNormalNegativemg/dLINTEGRIS [facility] UA Auto SSpH (U)5.5 *NA* (05/07/24 3:12 AM)Invalid Interpretation Code5.0 - 9.0[facility] UA Auto SSProtein Ql (U)1+ mg/dLInvalid Interpretation CodeNegativemg/dLINTEGRIS [facility] UA Auto SSRBC Ql (U)4-20 graded/HPFInvalid Interpretation Code0-3graded/HPFINTEGRIS BASS [facility] UA Auto SSSpecific gravity (U) [Rel density]>1.050 (05/07/24 3:12 AM)Normal1.005 - 1.030[facility] UA Auto SSUrobilinogen (U) [Mass/Vol] NegativeNormalNegativemg/dLINTEGRIS [facility] UA Auto SSWBC Auto (Urine sed) [#/Area]0-5 graded/HPFNormal0-5graded/HPFMC UA Auto SSURINALYSISOrdered By: Rima Anthony on 87-73-5053HW Spec DescClean Catch (05/07/24 3:12 AM)NormalINTEGRIS [facility] UA Auto SSXR Chest Single Viewon [id number] Chest Single ViewExam Date/Time: 05/07/2024 07:45 EST Reason for Exam: [...] Ka,r in mGy = na DAP = naNormalCrystal Clinic Orthopedic CentereGFRon 78-97-3160wDEN46 mL/min/1.73 m2 Normal>=59C[facility] CenterComment on above:Performed By: #### [id number] #### [facility] Laboratory [address], [place] [address]HGPjm 10-28-4851Hmzovfcgho [Mass/Vol]1.5 mg/dLHigh0.5-1.3FAdena Pike Medical CenterComment on above:Performed By: #### [id number] #### [facility] Laboratory [address], [place] [address]Lmsy nitrogen/Creatinine [Mass ratio]26 No PeexfZfnd89-95KissdtCrystal Clinic Orthopedic CenterComment on above:Performed By: #### [id number] #### [facility] Laboratory [address], [place] [address]Vivqd gap [Moles/Vol]13 mmol/LNormal6-16[facility] CenterComment on above:Performed By: #### [id number] #### [facility] Laboratory [address], [place] [address]Ynzgdui [Mass/Vol]8.4 mg/dLLow8.9-11.1Fisher [facility] Cross HospitalComment on above:Performed By: #### [id number] #### [facility] Laboratory [address], [place] [address]Eqjezqpb [Moles/Vol]100 mmol/OKrt054-293AjvqunCrystal Clinic Orthopedic CenterComment on above:Performed By: #### [id number] #### [facility] Laboratory [address], [place] [address]CI0 [Moles/Vol]26 mmol/HQdydhg83-22TfapwuCrystal Clinic Orthopedic Center Comment on above:Performed By: #### [id number] #### [facility] Laboratory [address], [place] [address]Cykhffg [Mass/Vol]92 mg/oVHwdrvi41-172ZuiqouCrystal Clinic Orthopedic CenterComment on above:Performed By: #### [id number] #### [facility] Laboratory [address], [place] [address]Ytgllvjez [Moles/Vol]3.8 mmol/LNormal3.5-5.3Fisher [facility] Cross HospitalComment on above:Performed By: #### [id number] #### [facility] Laboratory [address], [place] [address]Dyyssp [Moles/Vol]135 mmol/EXxugss224-893PnbjvwCrystal Clinic Orthopedic CenterComment on above:Performed By: #### [id number] #### [facility] Laboratory [address], [place] [address]Syzz nitrogen [Mass/Vol]39 mg/dLHigh5-21[facility] CenterComment on above:Performed By: #### [id number] #### [facility] Laboratory [address], [place] [address]ZTMgi 29-54-4055Gwwwukebglj peptide B (Bld) [Mass/Vol]93 pg/mL High5-80[facility] CenterComment on above:Performed By: #### [id number] #### [facility] Laboratory [address], [place] [address]Rckhk Gas Art, with Lytes, Gluc, [place] 05-06-2024/A Ratio Art 38.40 %Normal>=0.80[facility]opedic CenterComment on above:Performed By: #### [id number] #### [facility] Laboratory [address], [place] [address]SyCQ1 Art66.7 mmHgHigh5.0-15.0[facility] Comment on above:Performed By: #### [id number] #### [facility] Laboratory [address], [place] [address]Xdhjqe TestPositiveNormalCrystal Clinic Orthopedic CenterComment on above:Performed By: #### [id number] #### [facility] Laboratory [address], [place] [address]Tcuh Excess Arterial2.0 mmol/LLow>=2.8[facility] CenterComment on above:Performed By: #### [id number] #### [facility] Laboratory [address], [place] [address]gDy0+ Art4.58 mg/dLNormal4.40-5.30[facility] Comment on above:Performed By: #### [id number] #### [facility] Laboratory [address], [place] [address]qLt- Rux978.0 mmol/JCakrya086.0-111.0[facility] CenterComment on above:Performed By: #### [id number] #### [facility] Laboratory [address], [place] [address]tXam Art96 mg/iZQwmisg08-19NmqmdjCrystal Clinic Orthopedic CenterComment on above:Performed By: #### [id number] #### [facility] Laboratory [address], [place] [address]vH+ Art3.9 mmol/LNormal3.5-5.3FAdena Pike Medical Center Comment on above:Performed By: #### [id number] #### [facility] Laboratory [address], [place] [address]cCwn Art1.0 mmol/LNormal.5-2.2FAdena Pike Medical Center Comment on above:Performed By: #### [id number] #### [facility] Laboratory [address], [place] [address]qNs+ Fdp240.0 mmol/YRixeda173.0-145.0[facility]opedic CenterComment on above:Performed By: #### [id number] #### [facility] Laboratory [address], [place] [address]Tynfc byadmInvalid Interpretation [facility] MiamisburgComment on above:Performed By: #### [id number] #### [facility] Laboratory [address], [place] [address]KQTGn Art1.7 %Normal1.5-4.9[facility] CenterComment on above:Result Comment: Reference range Nonsmoker <1.5% Smoker <5.0% Heavy Smoker <9.0%Performed By: #### [id number] #### [facility] Laboratory [address] [place], [place] [address]XTX4 BU17Ytlrccs Interpretation [facility] Comment on above:Performed By: #### [id number] #### [facility] Laboratory [address], [place] [address]IWwdEx Art<1.8Ynvpxq2.0-1.9[facility] CenterComment on above:Performed By: #### [id number] #### [facility] Laboratory [address], [place] [address]MH5Zy Art79.7 %Low93.0-100.0[facility] CenterComment on above:Performed By: #### [id number] #### [facility] Laboratory [address], [place] [address]WDA1 (Bld) [Moles/Vol]25.9 mmol/YAumljv47.0-26.0[facility] CenterComment on above:Performed By: #### [id number] #### [facility] Laboratory [address], [place] [address]Xdzyofcgvp (Bld) [Mass/Vol]9.8 g/dLLow12.0-17.0[facility] CenterComment on above:Performed By: #### [id number] #### [facility] Laboratory [address], [place] [address]Cqtfrx saturation in Blood81.1 %Low95.0-100.0[facility] Orthopedic CenterComment on above:Performed By: #### [id number] #### [facility] [address], [place] [address]T CO2 Peytbtxr06.9 gvGtMdb44.0-45.0[facility] Comment on above:Performed By: #### [id number] #### [facility] [address], [place] [address]G O2 Ewopdgbu54.6 quCmGzlaweof64.0-100.0[facility] Orthopedic CenterComment on above:Result Comment: Results Called To Javier WALSH By Nando Crowell And Read Back For Confirmation On 05/06/2024 11:11:11 EST. Performed By: #### [id number] #### [facility] [address], [place] [address]wU Arterial7.388Hcpf2.350-7.450[facility] Comment on above:Performed By: #### [id number] #### [facility] [address], [place] [address]Xpljtt SiteR RadialNormalCrystal Clinic Orthopedic CenterComment on above:Performed By: #### [id number] #### [facility] [address], [place] [address]Wjeveb TypeArterial DrawNormalCrystal Clinic [facility] Comment on above:Performed By: #### [id number] #### [facility] [address] [place] [address]IVA w/ Auto Diffon 44-25-1381Fowcuksbp/100 WBC (Bld)0.6 %Normal 0.0-2.0[facility]opedic CenterComment on above:Performed By: #### [id number] #### [facility] [address] [place] [address]Mijfugwwv/Leukocytes Auto (Bld) [Pure # fraction]0.0 E9/LNormal 0.0-0.2FAdena Pike Medical CenterComment on above:Performed By: #### [id number] #### [facility] [address] [place] [address]Ekcobpretyl (Bld) [#/Vol]0.0 E9/LNormal0.0-0.5FAdena Pike Medical CenterComment on above:Performed By: #### [id number] #### [facility] [address] [place] [address]Tubynrweblt/100 WBC (Bld)0.2 %Normal0.0-8.0[facility] CenterComment on above:Performed By: #### [id number] #### [facility] [address] [place] [address] 59[address]Sfmnzupviou distribution width (RBC) [Ratio]15.3 %High10.9-14.2 [facility] CenterComment on above:Performed By: #### [id number] #### [facility] [address] [place] [address] 601[address]Ihfttrsqcj (Bld) [Volume fraction]32.3 %Low37.7-49.0[facility] CenterComment on above:Performed By: #### [id number] #### [facility] [address] [place] [address] 71[address]Ufdcdqzlxv (Bld) [Mass/Vol]11.0 g/dLLow13.5-17.5FAdena Pike Medical CenterComment on above:Performed By: #### [id number] #### [facility] [address] [place] [address]Yrdztflmroj (Bld) [#/Vol]2.0 E9/LNormal1.0-4.0[facility] CenterComment on above:Performed By: #### [id number] #### [facility] [address] [place] [address] 15[address]Yitalgqxgok/100 WBC (Bld)32.5 %Bltgtz78.0-50.0[facility] CenterComment on above:Performed By: #### [id number] #### [facility] [address] [place] [address] 46683UVD (RBC) [Entitic mass]31.6 ayFfzopr46.0-34.0[facility] CenterComment on above:Performed By: #### [id number] #### [facility] [address] [place] [address] 48458VXET (RBC) [Mass/Vol]34.1 g/pSTtbmkr42.4-36.0[facility] CenterComment on above:Performed By: #### [id number] #### [facility] [address] [place] [address] 71499JGF (RBC) [Entitic vol]92.5 mXVxvecg55.0-100.0[facility] CenterComment on above:Performed By: #### [id number] #### [facility] [address] [place] [address]68[address]Mfiniwyzr (Bld) [#/Vol]0.4 E9/LNormal0.2-1.0[facility] CenterComment on above:Performed By: #### [id number] #### [facility] [address] [place] [address] 42794Dtpidtqyxbp (Bld) [#/Vol]3.7 E9/LNormal2.0-7.5FAdena Pike Medical CenterComment on above:Performed By: #### [id number] #### [facility] [address] [place] [address] 493[address]Ffqhjlpsrcj/100 WBC (Bld)60.1 %Cmmdyz14.0-75.0[facility] CenterComment on above:Performed By: #### [id number] #### [facility] [address], [place] [address]Mayhqfnt mean volume (Bld) [Entitic vol]8.5 fLNormal6.4-10.8 [facility] CenterComment on above:Performed By: #### [id number] #### [facility] [address] [place] [address] 470[address]Wwebdkuim (Bld) [#/Vol]218.0 E9/DGjnhbu506.0-500.0[facility] CenterComment on above:Performed By: #### [id number] #### [facility] [address] [place] [address] 09652LZM (Bld) [#/Vol]3.5 E12/LLow4.3-5.9[facility] Comment on above:Performed By: #### [id number] #### [facility] [address] [place] [address] 016[address]PEN corrected for nucl RBC Auto (Bld) [#/Vol]6.2 E9/LNormal 4.0-11.0[facility] CenterComment on above:Performed By: #### [id number] #### [facility] [address] [place] [address] 22319BXRGVIXJTWjzdqkj By: SYSTEM SYSTEM on 63-70-1110Talr [Mass/Vol] ug/dLLow35 - 153 mcg/dLRemisol ChemIron binding capacity [Mass/Vol]197 ug/dLLow 250 - 400 mcg/dLRemisol JssaFNY210 [iU]/dHigh93 - 218 Int._Unit/LRemisol Chem Transferrin [Mass/Vol]141 mg/uSTzy381 - 370 mg/dLRemisol ChemTroponin HS31.10 pg/ePMsfsvw43.90 - 38.40 pg/mLRemisol ChemComment on above:Interpretive Data: The 95% CI (Confidence Interval) PPV (Positive Predictive Value) for myocardial infarction in females is 38 pg/mL, in males 51 pg/mL. The results should be used in conjunction withclinical conditions of myocardial infarction. (Access High Sensitivity Troponin I Instructions For Use, Kristopher Hayward, November 2017)Albumin [Mass/Vol]3.2 g/dLLow3.3 - 5.0 gm/dLRemisol Chem Albumin/Globulin [Mass ratio]1.0 {ratio}Low1.1 - 2.2Remisol ChemALP [Catalytic activity/Vol]70 [iU]/rRtjwen10 - 98 Int._Unit/LRemisol ChemALT No additional P-5'-P [Catalytic activity/Vol]45 [iU]/dNormal6 - 46 Int._Unit/LRemisol ChemAST [Catalytic activity/Vol]89 [iU]/dHigh5 - 43 Int._Unit/LRemisol ChemBilirubin [Mass/Vol]1.0 mg/dLNormal0.0 - 1.1 mg/dLRemisol ChemBilirubin.direct [Mass/Vol] 0.2 mg/dLNormal0.0 - 0.4 mg/dLRemisol ChemBilirubin.indirect [Mass or moles/Vol] 0.8 mg/dLNormal0.1 - 0.9 mg/dLRemisol ChemCobalamin (Vitamin B12) [Mass/Vol]694 pg/uQRfqhwi05 - 1500 pg/mLRemisol ChemFerritin [Mass/Vol]436 ng/xEQpsi52 - 336 ng/mLRemisol ChemFolate [Mass/Vol]ng/mLNormal>=6.7ng/mLRemisol ChemGlobulin (S) [Mass/Vol]3.2 g/dLNormal1.4 - 4.0 gm/dLRemisol ChemLactic Acid Lvl1.6 mmol/L Normal0.5 - 2.2 mmol/LRemisol ChemLipase [Catalytic activity/Vol]74 U/LHigh13 - 58 unit/LRemisol ChemProcalcitonin0.22 ng/mLNormal0.00 - 0.50 ng/mLRemisol Chem Comment on above:Interpretive Data: <0.5 ng/mL Low risk of severe sepsis [...] to retest PCT within 6 to 24 hours.Protein [Mass/Vol]6.4 g/dLNormal6.0 - 7.8 gm/dL Remisol ChemTroponin HS36.70 pg/tGYteapo14.90 - 38.40 pg/mLRemisol ChemComment on above:Interpretive Data: The 95% CI (Confidence Interval) PPV (Positive Predictive Value) for myocardial infarction in females is 38 pg/mL, in males 51 pg/mL. The results should be used in conjunction withclinical conditions of myocardial infarction. (Access High Sensitivity Troponin I Instructions For Use, Kristopher Friendemic, November 2017)TSH Qn3.01 m[IU]/LNormal0.34 - 5.60 mcIU/mLRemisol ChemCHEMISTRY Ordered By: [place] on 99-63-8607Hlqtofqefpz peptide B (Bld) [Mass/Vol]93 pg/mLHigh5 - 80 pg/mLIN[facility] HemeManSSCOAGULATIONOrdered By: [place] on 62-32-6963zDTH Coag (PPP) [Time]39.3 sHigh25.1 - 36.5 second(s)[facility] Auto Coag Comment on above:Interpretive Data: Parameter 15 days - 4 weeks 1 - [...] the same coagulation reagent and instrumentation as [facility]. Currently there are no coagulation studies available worldwide for children to 14 days, andno normal ranges. Heparin therapeutic range (represented by Anti-Factor Xa activity of 0.2 - 0.4 U/mL) corresponds to PTT of 56.6 - 109.0 sec.COVID-19 ([facility])on 05-06-2024 SARS-CoV-2 (COVID-19) RNA JACQUELINE+probe Ql (Unsp spec)Not detectedNormalNot Detected [facility] CenterComment on above:Result Comment: This assay was performed by reverse transcriptase real-time PCR method. Clinical correlation with patient history and other diagnostic information is necessary to determine patient infection status. Positive results are indicative of the presence of SARS-CoV-2 RNA. Positive results do not rule out bacterial infection or co- infection with other viruses. The agent detected may not be the definitive cause of disease. Negative results do not preclude SARS-CoV-2 infection and should n ot be used as the sole basis for patient management decisions. This testing is only for use under the FDA???s Emergency Use Authorization. Performed By: #### [id number] #### [facility] [address], [place] [address]TUZI-UaC-6 (COVID-19) RNA JACQUELINE+probe Ql (Unsp spec)PassNormal PassFishSinai Hospital of BaltimoreComment on above:Performed By: #### [id number] #### [facility] [address], [place] [address]Tdkpgwzv source Nom (Unsp spec)NasalNormalCrystal Clinic Orthopedic CenterComment on above:Performed By: #### [id number] #### [facility] [address], [place] [address]ZK Abdomen/Pelvis w/ Contraston 49-90-5759QZ Abdomen/Pelvis w/ ContrastExam Date/Time: 05/06/2024 13:14 EST Reason for Exam: [...] amount in ml's: 100 Rectal Contrast Given? NoNormalFisher [facility] HospitalCT Head or Brain w/o Contraston 88-00-5229AM Head or Brain w/o ContrastExam Date/Time: 05/06/2024 13:08 EST Reason for Exam: [...] Christos Valencia MD Transcribed by: BRIAN Technologist: Dasia [facility] Cheston 97-32-4104ZDH ChestExam Date/Time: 05/06/2024 13:14 EST Reason for Exam: [...] as reasonably Report achievable. Ordering Provider: Rima Anthony FINAL REPORT Dictated: 05/06/2024 1:24 pm Christos Valencia MD Signed (Electronic Signature): 05/06/2024 1:24 pm Signed by: Christos Valencia MD Transcribed by: BRIAN Technologist: YEISON Technical Comments GFR (mL/min/1/73m2) 47 Contrast: Isovue 370 Contrast amount in ml's: 100NormalFisher [facility] CenterED Clinical Summary on 12-88-2997BE Clinical SummaryED Clinical Summary [place] [address] ED Clinical Summary Person Information Name: BENNIE DENNIS [facility] Age: 78 Years : 1945 Sex: Male Language: Israeli PCP: Pete Gar MD Marital Status: Visit Id: Visit Reason: Respiratory problem; Blood in stool; Weakness or fatigue; ABD [id number] WALKING-WEAKNESS Speciality: Acuity: 1 Enc Type: Inpatient [...] 05/06/2024 16:28:09 05/06/2024 16:28:09 05/06/2024 16:28:09 ADDRESS: [address] [place] [phone] PHYS DOC NOTES: ME (more content not included)...NormalFisher Clinton Medical CenterED Note-Physicianon [id number] Note-PhysicianED Note-Physician Basic Information Time Seen: Rima Anthony M.D. 05/06/2024 10:40 Chief Complaint per family pt [...] and Complexity of Problems Differential Diagnosis: [] [facility] Data External documents reviewed: [] My EKG [...] Acute kidney failure, unspecified) 8. 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 Chronic systolic heart failure (I50.22: Chronic systolic (congestive) heart failure) 10. Paroxysmal A-fib (more content not included)...[facility] HospitalComment on above:Result Comment: Electronically Signed By: Rima Anthony M.D.\.dana\Date and Time Signed: 05/06/2515:21 ESTED Patient Education Noteon [id number] Patient Education NoteED Patient Education NoteNormLima [facility] Patient Summaryon [id number] Patient SummaryED Patient Summary [facility] [address] [place], [place] [id number] Patient Discharge Instructions Person Information Name: BENNIE DENNIS Age: 78 Years Arrival Date: 05/06/2024 10:29:54 Discharge Diagnosis: 1:Acute hypoxic respiratory failure; 2:Hypotension due to hypovolemia; 3:PNA (pneumonia); 4:Pleural effusion on right; 5:Acute sinusitis; 6:Anemia; 7:Acute kidney injury; 8:CAD in [place] artery; 9:Chronic systolic heart failure; 10:Paroxysmal A-fib; 11:HTN (hypertension); 12:HLD (hyperlipidemia); 13:Pancreatic insufficiency; 14:UC (ulcerative colitis); 15:BPH (benign prostatic hyperplasia); 16:History of CVA with residual deficit; 17:On deep vein thrombosis (DVT) prophylaxis Primary Care Physician: Pete Gar MD Provider Information Primary Provider: Rima Anthony M.D. Advanced Heddle Machine Operator:None The exam and treatment you received in the Emergency Department were for an urgent problem and are not intended as complete care. It is important that you follow up with a doctor, nurse practitioner,or physician???s fitter's assistant for ongoing care. If your symptoms become worse or you do not improve asexpected and you are unable to reach your [...] opioids can be used to help relieve jwadjnok-fv-yvvhpm pain and are often prescribed following a [...] or flush them down (more content not included)...NormalCrystal Clinic Orthopedic CenterFT Blood GasesOrdered By: Nando Delgadillo on 5a/A Ratio Art38.40 %Normal>=0.80%[facility] Resp Auto SSAaDO2 Art66.7 mm[Hg]High5.0 - 15.0 mmHgFT Resp Auto SSAllens TestPositive (05/06/24 11:08 AM)NormalFTMC Resp Auto SSBase Excess Arterial2.0 mmol/LLow >=2.8mmol/LFTMC Resp Auto SScCa2+ Art4.58 mg/dLNormal4.40 - 5.30 mg/dLFTMC Resp Auto SScCl- Non703.0 mmol/TNbnaqt116.0 - 111.0 mmol/LFTMC Resp Auto SScGlu Art96 mg/uISzuqee52 - 99 mg/dLFTMC Resp Auto SScK+ Art3.9 mmol/LNormal3.5 - 5.3 mmol/LFTMC Resp Auto SScLac Art1.0 mmol/LNormal0.5 - 2.2 mmol/LFTMC Resp Auto SS technical manager chemical plant+ Vln665.0 mmol/RQkibdj575.0 - 145.0 mmol/LFTMC Resp Auto SSDrawn byadm Invalid Interpretation CodeFTMC Resp Auto SSFCOHb Art1.7 %Normal1.5 - 4.9 %[facility] Resp Auto SSComment on above:Interpretive Data: Reference range Nonsmoker <1.5% Smoker <5.0% Heavy Smoker <9.0%FMetHb Art%Normal0.0 - 1.9 %[facility] Resp Auto JTVE0Cu Art79.7 % Low93.0 - 100.0 %[facility] Resp Auto SSHCO3 (Bld) [Moles/Vol]25.9 mmol/BPqafnr37.0 - 26.0 mmol/LFTMC Resp Auto SSHemoglobin (Bld) [Mass/Vol]9.8 g/dLLow12.0 - 17.0 gm/dLFTMC Resp Auto SSP CO2 Oztldpgs85.9 mm[Hg]Low35.0 - 45.0 mmHgFTMC Resp Auto SSP O2 Piokiwyz72.6 mm[Hg]Invalid Interpretation Code80.0 - 100.0 mmHgINTEGR[facility] Resp Auto SSComment on above:Result Comment: Results Called To Javier WALSH By Nando Crowell And Read Back For Confirmation On 05/06/2024 11:11:11 EST.pH (Bld)7.492 [pH]High7.350 - 7.450FT Resp Auto SSSample SiteR Radial (05/06/24 11:08 AM)NormalFT Resp Auto SSSample TypeArterial Draw (05/06/24 11:08 AM)NormalINTEGRIS [facility] Resp Auto SSSodium [Moles/Vol]21 mmol/LInvalid Interpretation CodeINTEGRIS BASS [facility]AP[facility] Resp Auto SSFerritinon 65-24-7157Ocjlgfdg [Mass/Vol]436 ng/lVEcbw88-570BfohecCrystal Clinic Orthopedic CenterComment on above:Performed By: #### [id number] #### [facility] [address], [place] [address]Juqwvlrk 21-48-7869Bncdrt [Mass/Vol]ng/mLNormal>=6.7FAdena Pike Medical CenterComment on above:Performed By: #### [id number] #### [facility] [address], [place] [address]DZDMWBJLJLFhplblu By: SYSTEM SYSTEM on 05-06-2024 Reticulocytes/100 RBC (Bld)1.7 %Normal0.5 - 2.2 %Remisol HemeHep Func Panelon 04-39-7896Irsidgy [Mass/Vol]3.2 g/dLLow3.3-5.0[facility] Orthopedic CenterComment on above:Performed By: #### [id number] #### [facility] [address], [place] [address]Nqdlpwn/Globulin (S) [Mass conc ratio]1.0Low1.1-2.2FAdena Pike Medical CenterComment on above:Performed By: #### [id number] #### [facility] [address], [place] [address]QNG [Catalytic activity/Vol]70 Int._Unit/UNngnqb70-69XyumdoCrystal Clinic Orthopedic CenterComment on above:Performed By: #### [id number] #### [facility] [address] [place] [address]JVK No additional P-5'-P [Catalytic activity/Vol]45 Int._Unit/L Normal6-46[facility] Orthopedic CenterComment on above:Performed By: #### [id number] #### [facility] [address] [place] [address] 611[address]REF [Catalytic activity/Vol]89 Int._Unit/LHigh5-43[facility] CenterComment on above:Performed By: #### [id number] #### [facility] [address] [place] [address]Vhneacggl [Mass/Vol]1.0 mg/dLNormal0.0-1.1FAdena Pike Medical CenterComment on above:Performed By: #### [id number] #### [facility] [address] [place] [address]Yqitrbsjq.direct [Mass/Vol]0.2 mg/dLNormal0.0-0.4FAdena Pike Medical CenterComment on above:Performed By: #### [id number] #### [facility] [address] [place] [address]Hplkimlol.indirect [Mass or moles/Vol]0.8 mg/dLNormal0.1-0.9 [facility] CenterComment on above:Performed By: #### [id number] #### [facility] [address] [place] [address]Vwhkkrdd (S) [Mass/Vol]3.2 g/dLNormal1.4-4.0[facility] CenterComment on above:Performed By: #### [id number] #### [facility] [address] [place] [address]Glgnwvw [Mass/Vol]6.4 g/dLNormal6.0-7.8[facility] CenterComment on above:Performed By: #### [id number] #### [facility] [address], [place] [address]Sigvga 67-06-1912Zxnl [Mass/Vol]ug/jNFjp74-063RypfvxCrystal Clinic Orthopedic CenterComment on above:Performed By: #### [id number] #### [facility] [address], [place] [address]DAHpn 11-61-9436NZN634 Int._Unit/BDeju25-535CqfwpvCrystal Clinic Orthopedic CenterComment on above:Performed By: #### [id number] #### [facility] [address], [place] [address]Tzeympwmog - Microbiology and Antimicrobial susceptibility Ordered By: Linda Umanzor on 29-81-9511SVMV DNA JACQUELINE+probe Ql (Unsp spec)MRSA Negative.[facility] Warren HospitalLactic Acidon 66-78-9826Eprnxy Acid Lvl1.6 mmol/LNormal0.5-2.2FAdena Pike Medical CenterComment on above:Performed By: #### [id number] #### [facility] [address] [place] [address]Kgakqj Levelon 36-66-9024Dvliiv [Catalytic activity/Vol]74 U/L Dmcj72-40OzfcuxCrystal Clinic Orthopedic CenterComment on above:Performed By: #### [id number] #### [facility] [address] [place] [address]SALPU OTHER TESTSOrdered By: Monica Duarte on 60-65-9002Laoij COV Int NEG CtlPass (05/06/24 2:53 PM)NormalINTEGRIS B[facility] Man SeroRapid COV Int POS CtlPass (05/06/24 2:53 PM)NormalINTEGRIS BASS [facility]APT[facility] Man SeroSARS-CoV+SARS-CoV-2 (COVID-19) Ag IA.rapid Ql (Resp)Not Detected 20 (05/06/24 2:53 PM)NormalNot DetectedINTEGRIS BASS [facility]AP[facility] Man SeroComment on above:Interpretive Data: The [employer] Veritor System for Rapid Detection of SARS-CoV-2 is a chromatographic digital immunoassay intended for the direct and qualitative detection of SARS-CoV-2 nucleocapsid antigens in nasal swabs from individuals who are suspected of COVID-19 by their healthcare provider withinthe first five days of the onset of [...] of proteins from SARS-CoV-2, not for any otherviruses or pathogens; and, in the [place], this test is only authorized for the duration of the declaration that circumstances exist justifying the authorization of emergency use of in vitro diagnostics for detection and/or diagnosis of the virus that causes COVID-19 under Section 564(b)(1) of the Act,21 U.S.C. 360bbb-3(b)(1), unless the authorization is terminated or revoked sooner.No Panel InformationOrdered By: ANGPROCESSSERVER MICROBIOLOGY on 38-84-6794Ynxnp Culture CharcoalNo growth at [address] [facility] Warren HospitalBlood Culture CharcoalNo growth at [address] [facility] Warren HospitalPT & PTTon 30-79-8200aLXB Coag (PPP) [Time]39.3 second(s)High 25.1-36.5Fbishnu Holy Cross HospitalComment on above:Result Comment: Parameter 15 days - 4 weeks 1 - [...] the same coagulation reagent and instrumentation as [facility]. Currently there are no coagulation studies available worldwide for children to 14 days, andno normal ranges. Heparin therapeutic range (represented by Anti-Factor Xa activity of 0.2 - 0.4 U/mL) corresponds to PTT of 56.6 - 109.0 sec.Performed By: #### [id number] #### [facility] [address] [place], [place] [address]VQT Coag (PPP) [Relative time]2.07 {INR}Invalid Interpretation CodeFishSinai Hospital of BaltimoreComment on above:Result Comment: INR results are specifically intended to assess patients stabilized on long-term Anticoagulation therapy suggested INR???s ???Less Intensive Anticoagulation??? 2.0 ??? 3.0 Conventional Range 3.0 ??? 4.5Performed By: #### [id number] #### [facility] [address], [place] [address]MY Coag (PPP) [Time]23.3 second(s)High9.4-12.5Fisher Holy Cross HospitalComment on above:Result Comment: 15 days - 4 weeks 1 - [...] the same coagulation reagent and instrumentation as [facility]. Currently there are no coagulation studies available worldwide for children to 14 days, andno normal ranges.Performed By: #### [id number] #### [facility] [address] [place], [place] [address]Yykboeefexmneix 05-22-0668Hntxomkbpeyan.22 ng/mLNormal.00-.50 [facility]opedic CenterComment on above:Result Comment: <0.5 ng/mL Low risk of severe [...] to retest PCT within 6 to 24 hours.Performed By: #### [id number] #### [facility] [address] [place], [place] [address]Tgvkv COVID Antigen ([facility])on 47-30-6180Wbtav COV Int NEG Ctl PassNormalCrystal Clinic Orthopedic CenterComment on above:Performed By: #### [id number] #### [facility] [address] [place], [place] [address]Yyxjq COV Int POS CtlPassNormTriHealth [facility]ull[facility] Comment on above:Performed By: #### [id number] #### [facility] [address] [place], [place] [address]PLXA-KwW+SARS-CoV-2 (COVID-19) Ag IA.rapid Ql (Resp)Not detectedNormalNot DetectedCrystal Clinic Orthopedic CenterComment on above:Result Comment: The [employer] Veritor??? System for Rapid Detection of SARS-CoV-2 is a chromatographic digital immunoassay intended for the direct and qualitative detection of SARS-CoV-2 nucleocapsid antigens in nasal swabs from individuals who are suspected of COVID-19 by their healthcare provider withinthe first five days of the onset of [...] of proteins from SARS-CoV-2, not for any otherviruses or pathogens; and, in the [place], this test is only authorized for the duration of the declaration that circumstances exist justifying the authorization of emergency use of in vitro diagnostics for detection and/or diagnosis of the virus that causes COVID-19 under Section 564(b)(1) of the Act,21 U.S.C. ??? 360bbb-3(b)(1), unless the authorization is terminated or revoked sooner.Performed By: #### [id number] #### [facility] [address] [place] [address]Sxzvkmooc Laboratory TestingOrdered By: Generated DomainUser on 27-74-8818Njnrsfgo [Mass/Vol]24.1 ug/dLHigh6.2-19.4mcg/dLFTMC SendOutsSSComment on above:Result Comment: Please Note: The reference interval and flagging for this test is for an AM collection. If this is a PM collection please use: Cortisol PM: 2.3-11.9 Performed at: [facility] [id number] PhD Brandyn CantuentRespiratory Panel by PCRon 29-59-6065Hgmxxpeaqs DNA JACQUELINE+non-probe Ql (Nph)Not detectedNormalFisher Holy Cross HospitalComment on above:Result Comment: Testing was performed using nucleic acid amplification including Influenza A, Influenza A H1, Influenza A H3, Influenza B, RSV A, RSV B, Adenovirus, Human Metapneumovirus, Parainfluenza 1,2,3, and 4, Rhinovirus, Bordetella parapertussis/bronchiseptica, Bordetella holmesii, and Bordetella pertussis.Performed By: #### [id number] #### [facility] [address] [place] [address] 05818O. parapertussis DNA JACQUELINE+probe Ql (Upper resp)Not detected NormalNot DetectedCrystal Clinic Orthopedic CenterComment on above:Performed By: #### [id number] #### [facility] [address] [place] [address] 38234N. pertussis DNA JACQUELINE+probe Ql (Upper resp)Not detectedNormalNot DetectedCrystal Clinic Orthopedic CenterComment on above:Performed By: #### [id number] #### [facility] [address] [place] [address] 25023NYDQS H1 RNA JACQUELINE+non-probe Ql (Nph)Not detectedNormalCrystal Clinic Orthopedic CenterComment on above:Performed By: #### [id number] #### [facility] [address] [place] [address] 89342BLKYJ H3 RNA JACQUELINE+non-probe Ql (Nph)Not detectedNormalCrystal Clinic Orthopedic CenterComment on above:Performed By: #### [id number] #### [facility] [address] [place] [address] 80504LZYPX RNA JACQUELINE+non-probe Ql (Nph)Not detectedNormalCrystal Clinic Orthopedic CenterComment on above:Performed By: #### [id number] #### [facility] [address] [place] [address] 09217XKSKO RNA JACQUELINE+non-probe Ql (Nph)Not detectedNormalCrystal Clinic Orthopedic CenterComment on above:Performed By: #### [id number] #### [facility] [address] [place] [address] 35984Tfurj MetapneumovirusNot detectedBerger HospitalComment on above:Result Comment: This test result should be correlated with clinical presentations and medical history by a healthcare provider to determine its clinical significance.Performed By: #### [id number] #### [facility] [address] [place], [place] [address]Qkzalafqjbeni virus 1 RNA JACQUELINE+non-probe Ql (Nph)Not detected Berger HospitalComment on above:Performed By: #### [id number] #### [facility] [address] [place], [place] [address]Mieillqroqimu virus 2 RNA JACQUELINE+non-probe Ql (Nph)Not detected [facility] HospitalComment on above:Performed By: #### [id number] #### [facility] [address] [place], [place] [address]Gmqnpbwxvwzlt virus 3 RNA JACQUELINE+non-probe Ql (Nph)Not detected [facility] HospitalComment on above:Performed By: #### [id number] #### [facility] [address] [place], [place] [address]Ifreoradmkblm virus 4 RNA JACQUELINE+non-probe Ql (Nph)Not detected [facility] HospitalComment on above:Performed By: #### [id number] #### [facility] [address] [place] [place], [place] [address]Vbjf Panel Intrl QCPassNoChillicothe HospitalComment on above:Performed By: #### [id number] #### [facility] [address] [place] [place], [place] [address]Eezxgoxqdd+Enterovirus RNA JACQUELINE+non-probe Ql (Nph)Not detected [facility] HospitalComment on above:Performed By: #### [id number] #### [facility] [address] [place], [place] [address]GGU RNA JACQUELINE+non-probe Ql (Nph)Not detectedBerger HospitalComment on above:Performed By: #### [id number] #### [facility] [address] [place], [place] [address]Mangj Counton 83-13-2083Iqwahjaahqfmi/100 RBC (Bld)1.7 %Normal 0.5-2.2FAdena Pike Medical CenterComment on above:Performed By: #### [id number] #### [facility] [address] [place], [place] [address]ZLKL Calculatedon 42-02-7762Clgv binding capacity [Mass/Vol]197 microgram/zPIlf612-960DvfvwfCrystal Clinic Orthopedic CenterComment on above:Performed By: #### [id number] #### [facility] [address] [place] [address]Wcruduyejtw [Mass/Vol]141 mg/zVKuj690-083XnykjyCrystal Clinic Orthopedic CenterComment on above:Performed By: #### [id number] #### [facility] [address] [place] [address]JTP With T4fr Reflexon 91-05-9060VSY Qn3.01 m[IU]/LNormal 0.34-5.60C[facility] Clinic Orthopedic CenterComment on above:Performed By: #### [id number] #### [facility] [address] [place] [place], [place] [address]Qzprypxs 0 Hr.on 53-82-7192Guqhfytz HS36.70 pg/mLNormal 15.90-38.40C[facility] Clinic Orthopedic CenterComment on above:Result Comment: The 95% CI (Confidence Interval) PPV (Positive Predictive Value) for myocardial infa rction in females is 38 pg/mL, in males 51 pg/mL. The results should be used in conjunction with clinical conditions of myocardial infarction. (Access High Sensitivity Troponin I Instructions For Use, Kristopher Brittney, November 2017)Performed By: #### [id number] #### [facility] [address] [place], [place] [address]Xftaspfp 1 Hr.on 86-39-7023Ykijjvel HS31.10 pg/mLNormal 15.90-38.40C[facility] Clinic Orthopedic CenterComment on above:Result Comment: The 95% CI (Confidence Interval) PPV (Positive Predictive Value) for myocardial infa rction in females is 38 pg/mL, in males 51 pg/mL. The results should be used in conjunction with clinical conditions of myocardial infarction. (Access High Sensitivity Troponin I Instructions For Use, Kristopher Hayward, November 2017)Performed By: #### [id number] #### [facility] [address] [place], [place] [address]PC with Cult Rflxon 17-99-7647Jhth of Urine collection method Clean CatchNormalCrystal Clinic Orthopedic CenterComment on above:Performed By: #### [id number] #### [facility] [address] [place] [place], [place] [address]Aap B12on 16-01-6331Nskobwunr (Vitamin B12) [Mass/Vol]694 pg/mL Tvqtcs37-3839OuuqpmCrystal Clinic Orthopedic CenterComment on above:Performed By: #### [id number] #### [facility] [address] [place] [place], [place] [address]HM Chest Single Viewon 28-63-1165TD Chest Single ViewExam Date/Time: 05/06/2024 19:34 EST Reason for Exam: [...] Gar FINAL REPORT Dictated: 05/06/2024 8:07 pm Jearmy Acosta MD Signed (Electronic Signature): 05/06/2024 8:07 pm Signed by: Jeramy Acosta MD Transcribed by: BRIAN Technologist: CANDIDO Technical Comments Radiation Dose: Ka,r in mGy = na [facility] Single ViewExam Date/Time: 05/06/2024 11:28 EST Reason for Exam: [...] Ka,r in mGy = na DAP = [facility] Medical CentereGFRon 49-13-3457vBUF48 mL/min/1.73 m2 Low>=[address] [place], [place] [address]Comment on above:Performed By: #### [id number] #### [facility] [address] [place] [place], [place] [address]Pnujjnpbhb Visit Summaryon 92-52-5007Ulewkuqjdu Visit Summary Ambulatory Visit Summary BENNIE DENNIS :1945 Visit Date:05/01/2024 Ambulatory Visit Instructions Your [...] warfarin (warfarin 4 mg Tab) Procedures Performed Esophagogastroduodenoscopy (03/28/2024), Flexible sigmoidoscopy (03/28/2024), Cardiac catheter, Carotid endarterectomy, Colonoscopy. Discharge Vitals Heart Rate (Peripheral) 76 Blood Pressure 111/74 Height 172 cm Height 68 in Weight 62.6 kg Weight 138.009 lb BMI 21.16 What to do next Scheduled Follow-Up Appointments 2024 2:00 PM EST With: Where: [facility] 2024 9:15 AM EDT With: Debra STEWART, Eloisa Cheung Where: [facility] [address] [place] [address] [place] [address]- 2024 10:00 AM EDT With: Cong STEWART, Pete Hooker Where: [address] [address]- Tuesday 11:00 AM EDT With: Where: [address] [address]- Medications What How Much When [...] Take 4 mg orally on mondays, wednesdays andtuesdays and 8mg the other 4 days of [...] your survey. We apprecia (more content not included)...[facility] HospitalGastroenterology Office/Clinic Noteon 53-41-6228Voyxpuzmvwwwznmv Office/Clinic Note Gastroenterology Office/Clinic Note Chief Complaint [...] 93.2 fL (03/28/24) Chloride: 103 mmol/L (03/28/24) [place] Absolute: 0.8 E9/L (03/28/24) CO2: 29 mmol/L (03/28/24) [place] Auto: 7.6 % (03/28/24) Creatinine: 1 mg/dL [...] Studies AMA Ab Scr: 24.2 High (04/02/24) MASISMO Direct: Negative (04/02/24) Ferritin Lvl: 128 ng/mL [...] Exam Vitals & Measurement (more content not included)...NormalCrystal Clinic Orthopedic CenterComment on above:Result Comment: Electronically Signed By: Debra STEWART, Eloisa Cheung\.br\Date and Time Signed: 05/01/2510:04 ESTPancreatic Elastase, Fecal on 71-62-1872Gidcmeca.pancreatic (Stl) [Mass/Mass]42Low>200C[facility] Clinic Orthopedic CenterComment on above:Result Comment: Stool of watery consistency received. Since watery stool is inherently dilute, low test results should be interpreted with caution. Retesting on formed stool, if possible, is recommended. Severe Pancreatic Insufficiency: <100 Moderate Pancreatic Insufficiency: 100 - 200 Normal: >200 Performed at: [facility] [address], [place] [id number] MD Anthony Zamoraformed By: #### [id number] #### [facility] [address] [place] [address].Interpretation:on 71-23-6400SDH Ab IA QlCommentInvalid Interpretation CodeCrystal Clinic Orthopedic CenterComment on above:Result Comment: Not infected with HCV unless early or acute infection is suspected (which may be delayed in an immunocompromised individual), or other evidence exists to indicate HCV infection. Performed at: [address] [id number] PhD Brandyn Terryformed By: #### [id number] #### [facility] [address] [place] [place], [place] [address]LLJ Ab Scron 74-49-0708Ugvcshjwouml M2 IgG Qn (S)24.2 unit(s) High0.0-20.0C[facility] Clinic Orthopedic CenterComment on above:Result Comment: Negative 0.0 - 20.0 Equivocal 20.1 - 24.9 Positive >24.9 Mitochondrial (M2) Antibodies are found in 90-96% of patients with primary biliary cirrhosis. Performed at: [address] [id number] PhD Brandyn Terryformed By: #### [id number] #### [facility] [address] [place], [place] [address]LYL w/Reflex if POSon 03-28-3032Kduprss Ab Ql (S)Negative Invalid Interpretation CodeNegativeCrystal Clinic Orthopedic CenterComment on above: Result Comment: Performed at: [address] [id number] PhD Brandyn MaderaChandler Regional Medical Centerformed By: #### [id number] #### [facility] [address] [place], [place] [address]Veqhi Hepatitis A B C Panelon 75-87-9515PYR IgM IA QlNegative Invalid Interpretation CodeNegativeCrystal Clinic Orthopedic CenterComment on above: Result Comment: A negative anti-HAV IgM result suggests no recent or current HAV infection.Performed By: #### [id number] #### [facility] [address] [place] [address]DBQ core IgM IA QlNegativeInvalid Interpretation CodeNegative [facility] Orthopedic CenterComment on above:Performed By: #### [id number] #### [facility] [address] [place] [place], [place] [address]VMN surface Ag IA QlNegativeInvalid Interpretation CodeNegative [facility] Orthopedic CenterComment on above:Performed By: #### [id number] #### [facility] [address] [place] [address]JMI IgG IA QlNon-ReactiveInvalid Interpretation CodeNon ReactiveCrystal Clinic Orthopedic CenterComment on above:Result Comment: Performed at: [facility] [id number] PhD Brandyn MaderaPerformed By: #### [id number] #### [facility] [address] [place] [address]Zdgolk Disease Comprehensiveon 65-59-2296Kyzjgyvqlm IgA Ql (S) NegativeInvalid Interpretation CodeNegativeCrystal Clinic Orthopedic CenterComment on above:Performed By: #### [id number] #### [facility] [address] [place] [address]Dvqbbew peptide IgA Qn (S)4 unit(s)Invalid Interpretation Code 0-C[facility] Clinic Orthopedic CenterComment on above:Result Comment: Negative 0 - 19 Weak Positive 20 - 30 Moderate to Strong Positive >30Performed By: #### [id number] #### [facility] [address] [place] [address]Znuyasy peptide IgG Qn (S)2 unit(s)Invalid Interpretation Code 0-[facility] Clinic Orthopedic CenterComment on above:Result Comment: Negative 0 - 19 Weak Positive 20 - 30 Moderate to Strong Positive >30Performed By: #### [id number] #### [facility] [address] [place] [place], [place] [address]JcC [Mass/Vol]228 mg/dLInvalid Interpretation Guiz46-865JqdcqdCrystal Clinic Orthopedic CenterComment on above:Result Comment: Performed at: [address] [id number] PhD Brandyn MaderaPerformed By: #### [id number] #### [facility] [address] [place], [place] [address]mME IgA Qn (S)<2Invalid Interpretation Code0-3FAdena Pike Medical CenterComment on above:Result Comment: Negative 0 - 3 Weak Positive 4 - 10 Positive >10 Tissue Transglutaminase (tTG) has been identified as the endomysial antigen. Studies have demonstr- ated that endomysial IgA antibodies have over 99% specificity for gluten sensitive enteropathy.Performed By: #### [id number] #### [facility] [address] [place] [place], [place] [address]jMQ IgG Qn (S)<2Invalid Interpretation Code0-5FAdena Pike Medical CenterComment on above:Result Comment: Negative 0 - 5 Weak Positive 6 - 9 Positive >9Performed By: #### [id number] #### [facility] [address] [place], [place] [address]Jzfpjojny A Virus (HAV) Antibody, Totalon 15-32-5629ZLX Ab IA Ql (S)PositiveAbnormalNegativeCrystal Clinic Orthopedic CenterComment on above:Result Comment: Comment: The HAV total antibody assay detects both IgG and IgM but does not differentiate between them. A negative result suggests susceptibility to infection. A positive result could be due to vaccination, previously resolved infection or active infection. Testing for HAV IgM should be performed if active HAV infection is suspected. [facility] offers profiles that will automatically reflex positive HAV total antibody results to IgM (e.g., panel #[id number] HAV Antibody w/ Rfx). Performed at: [address] [id number] PhD Brandyn MaderaPerformed By: #### [id number] #### [facility] [address] [place], [place] [address]MmN, Quant.on 18-63-8011DfD [Mass/Vol]1258 mg/dLInvalid Interpretation Wurb575-2799PiudzjCrystal Clinic Orthopedic CenterComment on above:Result Comment: Performed at: [facility] [id number] Winsomedamonedi MaderaPerformed By: #### [id number] #### [facility] [address] [place], [place] [address]Quantiferon-TB Plus (Client Incubated)on 42-96-6249Qlmks interferon background IA Qn (Bld)0.04 International_Unit/mLInvalid Interpretation CodeCrystal Clinic Orthopedic CenterComment on above:Performed By: #### [id number] #### [facility] [address] [place] [address]. tuberculosis stim IFN-g by CD4+ CD8+ T-cells corrected for background Qn (Bld)0.05 International_Unit/mLInvalid Interpretation CodeCrystal Clinic Orthopedic CenterComment on above:Performed By: #### [id number] #### [facility] [address] [place] [address]. tuberculosis stim IFN-g by CD4+ T-cells corrected for background Qn (Bld)0.04 International_Unit/mLInvalid Interpretation [facility] MiamisburgComment on above:Performed By: #### [id number] #### [facility] [address] [place] [address]. tuberculosis stim IFN-g Ql (Bld) [Interp]NegativeInvalid Interpretation CodeNegativeCrystal Clinic Orthopedic CenterComment on above:Result Comment: No response to M tuberculosis antigens detected. Infection with [...] interferon gamma. Chemiluminescence immunoassay methodology Performed at: [address] [id number] PhD Brandyn MaderaPerformed By: #### [id number] #### [facility] [address] [place] [address]Bumqinq stimulated gamma interferon corrected for background Qn (Bld)>10.00Invalid Interpretation [facility] MiamisburgComment on above:Performed By: #### [id number] #### [facility] [address] [place] [address]Somutja comment (Unsp spec) [Interp]CommentInvalid Interpretation [facility] MiamisburgComment on above:Result Comment: QuantiFERON-TB Gold Plus is a qualitative indirect test for M tuberculosis infection (including disease) and is intended for use in conjunction with risk assessment, radiography, and other medical and diagnostic evaluations. The QuantiFERON-TB Gold Plus result is determined by subtracting the Nil value from either TB antigen (Ag) value. The Mitogen tube serves as a control for the test.Performed By: #### [id number] #### [facility] [address] [place] [address]Thuemq Muscle Abon 91-07-0822Aqqbw smooth muscle IgG Qn (S)56 unit(s)High0-19C[facility] Clinic Orthopedic CenterComment on above:Result Comment: Negative 0 - 19 Weak positive 20 - 30 Moderate to strong positive >30 Actin Antibodies are found in 52-85% of patients with autoimmune hepatitis or chronic active hepatitis and in 22% of patients with primary biliary cirrhosis. Performed at: [facility] [address], [place] [id number] PhD Brandyn MaderaPerformed By: #### [id number] #### [facility] [address] [place] [address]APOEFKNNEHvljrhr By: SYSTEM SYSTEM on 19-55-286438- hydroxyvitamin D3 [Mass/Vol]105.2 ng/xXQqfl68.0 - 100.0 ng/mLRemisol Chem Ferritin [Mass/Vol]128 ng/sPArklgv71 - 336 ng/mLRemisol ChemIron binding capacity [Mass/Vol]244 ug/lHXfp510 - 400 mcg/dLRemisol ChemTransferrin [Mass/Vol]174 mg/gSHbd862 - 370 mg/dLRemisol ChemFerritinon 18-13-1139Akjxuqmm [Mass/Vol]128 ng/uQRfhgwc36-737BzoixyCrystal Clinic Orthopedic CenterComment on above: Performed By: #### [id number] #### [facility] [address] [place], [place] [address]Ydkdkaxznzksawkq Office/Clinic Noteon 04-02-2024 Gastroenterology Office/Clinic NoteGastroenterology Office/Clinic Note Chief Complaint follow up to [...] (R13.19: Other dysphagia) 3. Chronic anticoagulation (Z79.01: skilled nursing (current) use of anticoagulants) 4. Loose stools [...] 93.2 fL (03/28/24) Chloride: 103 mmol/L (03/28/24) [place] Absolute: 0.8 E9/L (03/28/24) CO2: 29 mmol/L (03/28/24) [place] Auto: 7.6 % (03/28/24) Creatinine: 1 mg/dL [...] respirations non labored Ext (more content not included)...[facility]ger HospitalComment on above:Result Comment: Electronically Signed By: Debra STEWART, Eloisa Cheung\.br\Date and Time Signed: 04/02/2414:04 ESTSurgical Pathology Reporton [id number] Pathology Report[address] [address]- Surgical Pathology Report Collected Date/Time: 03/28/2024 09:38 EST Pathologist: Shaun STEWART PhD, Kj Martins Received Date/Time: 03/28/2024 10:47 EST Debra STEWART, Eloisa Sheridan. Debra STEWART, Eloisa Brito Surgical Pathology Report - 04/02/2024 [...] dimension. Entire specimen submitted in one cassette. (YC) [facility] Microscopic Description Microscopic examination performed unless [...] characteristics were determined by the [facility]ology. They have not been cleared or approved by the US Food and Drug Administration. The FDA has determined that such clearance or approval is not necessary. These tests are used for clinical purposes. They should not be regarded as investigational or for research. Appropriate positive and negative controls are performed and are acceptable. NormalCrystal Clinic Orthopedic CenterComment on above:Performed By: #### [id number] #### [facility] [address] [place], [place] [address]COMU Calculatedon 89-66-8818Vpwq binding capacity [Mass/Vol]244 microgram/xSSwf535-746RrlxtdCrystal Clinic Orthopedic CenterComment on above:Performed By: #### [id number] #### [facility] [address] [place] [place], [place] [address]Rotmnvecuqw [Mass/Vol]174 mg/rDWyc246-913VbuqfpCrystal Clinic Orthopedic CenterComment on above:Performed By: #### [id number] #### [facility] [address] [place] [place], [place] [address]Nqtcacm D 25 Hydroxyon 79-91-122771315138-rqwhezyhsarqtw D3 [Mass/Vol]105.2 ng/dIRnwr54.0-100.0C[facility] Clinic Orthopedic CenterComment on above: Performed By: #### [id number] #### [facility] [address] [place], [place] [address]AA Clinical Summaryon 08-69-2240KT Clinical SummaryED Clinical Summary [address] [address] ED Clinical Summary Person Information Name: BENNIE DENNIS [place] Age: 78 Years : 1945 Sex: Male Language: Israeli PCP: Pete Gar MD Marital Status: Visit [...] 03/29/2024 15:53:33 03/29/2024 15:53:33 03/29/2024 15:53:33 ADDRESS: [address] [place] [id number] PHYS DOC NOTES: MEDICAL INFORMATION: Prescriptions Given: [...] g oral enteric coated tablet) 2 Tablets. [facility] Prescription 0. Mini fish oil 1340mg one [...] Adult Follow up: With: Address: When: Eloisa Hassan [address] [place] [address], [address] [place] [address] [phone] Business (1) In 3 days 04/01/2024 Comments: Follow-up with Dr. Hassan on Tuesday as previously scheduled. Return to the ED with any new or worsening symptoms. With: Address: When: Pete Gar In 3 days DIAGNOSIS: Chronic ulcerative colitis; Decreased oral intakeJoshAdarsh Becerra Medical CenterED Note-Physicianon 53-60-4620RS Note-PhysicianED Note-Physician Basic Information Time Seen: Mile KAY, Linda MartinsJames 03/29/2024 14:39 Chief Complaint Pt presents to ED with spouse having concerns for decreased intake. Pt hx of UC- cont symptoms of diarrhea and abd (at baseline). Pt had EGD yesterday. denies any new symptoms History of Present Illness Patient is a 78-year-old male with a history of cardiovascular disease on warfarin, esophageal dysphagia, paroxysmal atrial fibrillation, and ulcerative colitis who presents to the ED with his spousefor concerns of decreased oral intake. Per , the patient has been experiencing a decreased appetite for the past couple of months. Patient notes today he had a couple coffee and a doughnut and felt full. Per , he underwent an EGD yesterday with novelty chain maker, Dr. Hassan, and obtained lab work. Per , she states they have not received the results of this lab work yet and she isconcerned about the patient's kidneys and liver. Patient denies any history of kidney or liver disease. Patient states he is experiencing abdominal pain and diarrhea that are baseline for him and unchanged from the past couple of months. Patient notes he does experience intermittent dark tarry stool and hematochezia but again this is unchanged and has been present for the past couple of months. Catalino lynn denies any new symptoms, including chest pain, [...] all extremities equal strength and symmetry, 5/5 instrument designer strength bilaterally Psychiatric: Cooperative and appropriate Medical Decision Making Patient is a 78-year-old male with a history of cardiovascular disease on warfarin, esophageal dysphagia, paroxysmal atrial fibrillation, and ulcerative colitis who presents to the ED with his spousefor concerns of decreased oral intake. Patient is hemodynamically stable and afebrile. Patient has a history of ulcerative colitis and experiences daily abdominal pain and diarrhea, which is unchanged from baseline. He underwent an EGD yesterday with novelty chain maker Dr. Hassan. During this timehe also received a liter of fluid and obtained blood work. states she is concerned about the patient's kidney and liver function and has not heard back on the lab work. Chart review shows the patient underwent a flexible sigmoidoscopy yesterday showing colitis in the left aspect of the colon compatible with previous history of ulcerative colitis. EGD was also conducted showing a small hiatalhernia, Schatzki's ring, and erosive gastropathy. Lab work [...] is baseline. I discussed lab work with thepatient and his . I had an extensive [...] 04/01/2024 EST [address], [address] [place] [phone] Business (1) Additional Instructions: Follow-up with Dr. Hassan on Tuesday as previously scheduled. Return (morecontent not included)...[facility] Comment on above:Result Comment: Electronically Signed By: Linda Treadwell PA-C\.br\Date and Time Signed: 03/29/2415:42 EST\.br\Electronically Co-Signed By: Linda Treadwell PA-C\.br\Date and Time Co-Signed: 03/29/24 15:43 EST\.br\Electronically Co-Signed By: Rima Anthony M.D.\.br\Date and Time Co-Signed: 03/29/24 16:53 ESTED Patient Summaryon [id number] Patient SummaryED Patient Summary [address] [address] Patient Discharge Instructions Person Information Name: BENNIE DENNIS Age: 78 Years Arrival Date: 03/29/2024 14:24:57 Discharge Diagnosis: Chronic ulcerative colitis; Decreased oral intake Primary Care Physician: Pete Gar MD Provider Information Primary Provider: Rima Anthony M.D. Advanced Heddle Machine Operator:Linda Treadwell PA-C The exam and treatment you received in the Emergency Department were for an urgent problem and are not intended as complete care. It is important that you follow up with a doctor, nurse practitioner,or physician???s fitter's assistant for ongoing care. If your symptoms become worse or you do not improve asexpected and you are unable to reach your usual health care provider, you should return to the Emergency Department. We are available 24 hours a day. BENNIE DENNIS has been given the following list of patient education materials, prescriptions and follow-up instructions: Follow-up Instructions: With: Address: When: Eloisa Hassan [address], [address] [place] [phone] Business (1) In 3 days 04/01/2024 Comments: [...] opioids can be used to help relieve czteytvj-mf-jwgaoa pain and are often prescribed following a [...] and Drug Administration (www (more content not included)...[facility] Recordon [id number] OR Intraoperative RecordMain OR Intraoperative Record IntraOp Document Type FT Summary Primary Physician: Eloisa Hassan MD Finalized Date/Time: 03/29/24 10:08:18 Pt. Name: BENNIE DENNIS/Sex: 1945 Male Med Rec #: [id number] Physician: Eloisa Hassan MD Financial #: [id number] Pt. Type: O Room/Bed: / Admit/Disch: 03/28/24 07:50:54 - 03/28/24 23:59:59 Institution: Case Times FT Entry 1 Patient Times In Room 03/28/24 09:34:00 Out Room 03/28/24 09:51:00 Procedure Times Start 03/28/24 09:34:00 Stop 03/28/24 09:47:00 Anesthesia Times Start 03/28/24 09:34:00 Stop 03/28/24 09:51:00 Last Modified By: Andria Bryant CST 03/29/24 10:08:16 General Comments: 0942-EGD completed/AW RN 43-Sigmoidoscopy started/AW RN 03/29/24 Chart opened to review and send charges [facility]FA Case Attendance FT Entry 1 Entry 2 Entry 3 Case Attendee Alie CATALAN, Jyoti Hassan MD, Eloisa Mcmanus RN, Breana Role Performed PAYROLL ACCOUNTING SPECIALIST Surgeon - Primary Rn Clinical Quality - Primary Time In 03/28/24 09:34:00 03/28/24 [...] By: Lovely Mcmanus RN (more content not included)...NormalCrystal Clinic Orthopedic CenterBMPon 78-05-2377Tmhyz gap [Moles/Vol]9 mmol/LNormal6-16 [facility] CenterComment on above:Performed By: #### [id number] #### [facility] [address] [place], [place] [address]Tyvezzy [Mass/Vol]8.9 mg/dLNormal8.9-11.1FAdena Pike Medical CenterComment on above:Performed By: #### [id number] #### [facility] [address] [place], [place] [address]Ijqsieye [Moles/Vol]103 mmol/AErjtgn977-944AeovizCrystal Clinic Orthopedic CenterComment on above:Performed By: #### [id number] #### [facility] [address] [place], [place] [address]TY5 [Moles/Vol]29 mmol/FMqfxnu13-47MyqzvvCrystal Clinic Orthopedic Center Comment on above:Performed By: #### [id number] #### [facility] [address] [place], [place] [address]Vzgovpoqkt [Mass/Vol]1.0 mg/dLNormal0.5-1.3FAdena Pike Medical CenterComment on above:Performed By: #### [id number] #### [facility] [address] [place], [place] [address]Hcrbepf [Mass/Vol]92 mg/eXLaxffq05-761GvarusCrystal Clinic Orthopedic CenterComment on above:Performed By: #### [id number] #### [facility] [address] [place], [place] [address]Ivkayolqv [Moles/Vol]4.3 mmol/LNormal3.5-5.3FAdena Pike Medical CenterComment on above:Performed By: #### [id number] #### [facility] [address] [place], [place] [address]Ishlrd [Moles/Vol]137 mmol/MEcvbsq210-818YlcusnCrystal Clinic Orthopedic CenterComment on above:Performed By: #### [id number] #### [facility] [address] [place], [place] [address]Cbmk nitrogen [Mass/Vol]25 mg/dLHigh5-21[facility] CenterComment on above:Performed By: #### [id number] #### [facility] [address] [place], [place] [address]Yyag nitrogen/Creatinine [Mass ratio]25 No ZuipfIsjy35-94VlgvqrCrystal Clinic Orthopedic CenterComment on above:Performed By: #### [id number] #### [facility] [address] [place], [place] [address]MTS w/ Auto Diffon 67-08-8035Dacqdvfbt/100 WBC (Bld)0.6 %Normal 0.0-2.0[facility] CenterComment on above:Performed By: #### [id number] #### [facility] [address] [place], [place] [address]Imwypnglc/Leukocytes Auto (Bld) [Pure # fraction]0.1 E9/LNormal 0.0-0.2FAdena Pike Medical CenterComment on above:Performed By: #### [id number] #### [facility] [address] [place], [place] [address]Hkjnwdztnbp (Bld) [#/Vol]0.2 E9/LNormal0.0-0.5FAdena Pike Medical CenterComment on above:Performed By: #### [id number] #### [facility] [address] [place], [place] [address]Epiylymwiab/100 WBC (Bld)2.1 %Normal0.0-8.0[facility] CenterComment on above:Performed By: #### [id number] #### [facility] [address] [place], [place] [address]Tatlkyvgvmo distribution width (RBC) [Ratio]13.2 %Normal 10.9-14.2FAdena Pike Medical CenterComment on above:Performed By: #### [id number] #### [facility] [address] [place], [place] [address]Ubfwvbiojk (Bld) [Volume fraction]32.8 %Low37.7-49.0[facility] CenterComment on above:Performed By: #### [id number] #### [facility] [address] [place] [address]Ssyhremedo (Bld) [Mass/Vol]11.1 g/dLLow13.5-17.5FAdena Pike Medical CenterComment on above:Performed By: #### [id number] #### [facility] [address] [place] [address]Tgfbopaidjd (Bld) [#/Vol]1.6 E9/LNormal1.0-4.0[facility] CenterComment on above:Performed By: #### [id number] #### [facility] [address] [place] [address]Deggownsndn/100 WBC (Bld)16.1 %Escuas17.0-50.0[facility] CenterComment on above:Performed By: #### [id number] #### [facility] [address] [place] [address]XNQ (RBC) [Entitic mass]31.4 wpUcwwoo51.0-34.0[facility] CenterComment on above:Performed By: #### [id number] #### [facility] [address] [place] [address]SNTQ (RBC) [Mass/Vol]33.7 g/xIAaabxv34.4-36.0[facility] CenterComment on above:Performed By: #### [id number] #### [facility] [address] [place] [address]SGK (RBC) [Entitic vol]93.2 qVQrwmbn60.0-100.0[facility] CenterComment on above:Performed By: #### [id number] #### [facility] [address] [place] [address]Yylsidquo (Bld) [#/Vol]0.8 E9/LNormal0.2-1.0[facility] CenterComment on above:Performed By: #### [id number] #### [facility] [address] [place] [address]Flpfmoosusm (Bld) [#/Vol]7.3 E9/LNormal2.0-7.5FAdena Pike Medical CenterComment on above:Performed By: #### [id number] #### [facility] [address] [place] [address]Hljmrohqdst/100 WBC (Bld)73.6 %Enehwi11.0-75.0[facility] CenterComment on above:Performed By: #### [id number] #### [facility] [address] [place] [address]Fmjwfgwm mean volume (Bld) [Entitic vol]7.8 fLNormal6.4-10.8 [facility] CenterComment on above:Performed By: #### [id number] #### [facility] [address] [place] [address]Cyhesimst (Bld) [#/Vol]277.0 E9/HDgsehb940.0-500.0[facility] CenterComment on above:Performed By: #### [id number] #### [facility] [address] [place] [address]HYU (Bld) [#/Vol]3.5 E12/LLow4.3-5.9[facility] Comment on above:Performed By: #### [id number] #### [facility] [address] [place], [place] [address]YXN corrected for nucl RBC Auto (Bld) [#/Vol]9.9 E9/LNormal 4.0-11.0[facility] CenterComment on above:Performed By: #### [id number] #### [facility] [address], [place] [address]Ksgxyvcrp Instructionson 72-37-3781Jmwvgtppu Instructions Discharge Instructions BENNIE DENNIS :1945 Visit Date:03/28/2024 Inpatient Discharge [...] care physician. This Is Your Medications List [facility] Prescription aspirin (aspirin 81 mg Oral EC [...] EDT With: Cong STEWART, Pete Hooker Where: [address] [phone]- Tuesday 11:00 AM EDT With: Where: [address] [address]- New Follow Up Appointments after Discharge Follow Up with Eloisa Hassan When: Comments: Call for any problems. Where: [address], [address] [place] [phone] Business (1) Medications What How Much When [...] Take 4 mg orally on mondays, wednesdays andfridays and 8mg the other 4 days of [...] ??? Endoscopy. ??? Biopsy. (more content not included)...[facility] on above:Result Comment: Electronically Signed By: Swetha Gonsalez RN\.br\Date and Time Signed: 03/28/24 10:06 ESTH&P Updateon 03-28-2024H&P UpdateH&P Update Patient: BENNIE DENNIS Age: 78 years Sex: Male : 1945 Associated Diagnoses: None Author: Debra STEWART, Eloisa Cheung Preoperative Information Chief compliant/Indication for procedure: Dysphagia, UC Chief Complaint as above Review of Systems All systems reviewed, negative except as mentioned above Physical Examination Vital Signs (last 24 hrs) Last Charted Temp Temporal 36.8 DegC (MAR 28 08:39) Heart Rate Monitored 86 bpm (MAR 28 08:39) Resp Rate 16 br/min (MAR 28:39) SBP 115 mmHg (MAR 28:) DBP 67 mmHg (MAR 28:) Weight 59.4 kg (MAR 28:) BMI 19.91 (MAR 28:) General: in Nad Abdomen: Soft, NTND Impression and Plan Diagnosis: Dysphagia, UC -EGD and colonoscopyNormalCrystal Clinic Orthopedic CenterHep Func Panelon 03-28-2024 Albumin [Mass/Vol]3.5 g/dLNormal3.3-5.0[facility] CenterComment on above:Performed By: #### [id number] #### [facility] [address] [place], [place] [address]Vhebfdt/Globulin (S) [Mass conc ratio]1.3Fptsjb0.1-2.2FAdena Pike Medical CenterComment on above:Performed By: #### [id number] #### [facility] [address], [place] [address]ZZF [Catalytic activity/Vol]108 Int._Unit/VNpjq62-53DuqpncCrystal Clinic Orthopedic CenterComment on above:Performed By: #### [id number] #### [facility] [address] [place], [place] [address]YZB No additional P-5'-P [Catalytic activity/Vol]18 Int._Unit/L Normal6-46[facility]opedic CenterComment on above:Performed By: #### [id number] #### [facility] [address], [place] [address]KYA [Catalytic activity/Vol]24 Int._Unit/LNormal5-43[facility] CenterComment on above:Performed By: #### [id number] #### [facility] [address] [place], [place] [address]Elhdlkdqt [Mass/Vol]0.6 mg/dLNormal0.0-1.1FAdena Pike Medical CenterComment on above:Performed By: #### [id number] #### [facility] [address] [place], [place] [address]Zukiggcgy.direct [Mass/Vol]0.1 mg/dLNormal0.0-0.4FAdena Pike Medical CenterComment on above:Performed By: #### [id number] #### [facility] [address] [place] [address]Qxtnwnrqc.indirect [Mass or moles/Vol]0.5 mg/dLNormal0.1-0.9 [facility] CenterComment on above:Performed By: #### [id number] #### [facility] [address] [place] [address]Ugoybkef (S) [Mass/Vol]3.2 g/dLNormal1.4-4.0[facility] CenterComment on above:Performed By: #### [id number] #### [facility] [address] [place] [address]Jdgffui [Mass/Vol]6.7 g/dLNormal6.0-7.8[facility] CenterComment on above:Performed By: #### [id number] #### [facility] [address] [place] [address]Cgqp OR Intraoperative Recordon [id number] OR Intraoperative RecordMain OR Intraoperative Record IntraOp Document Type FT Summary Primary Physician: Eloisa Hassan MD Finalized Date/Time: 03/28/24 10:07:19 Pt. Name: BENNIE DENNIS/Sex: 1945 Male Med Rec #: [id number] Physician: Eloisa Hassan MD Financial #: [id number] Pt. Type: O Room/Bed: / Admit/Disch: 03/28/24 07:50:54 - Institution: Case Times FT Entry 1 Patient Times In Room 03/28/24 09:34:00 Out Room 03/28/24 09:51:00 Procedure Times Start 03/28/24 09:35:00 Stop 03/28/24 09:47:00 Anesthesia Times Start 03/28/24 09:34:00 Stop 03/28/24 09:51:00 Last Modified By: Breana Mcmanus RN 03/28/24 10:05:34 General Comments: 0942-EGD completed/AW RN 0943-Sigmoidoscopy started/AW RN Case Attendance FT Entry 1 Entry 2 Entry 3 Case Attendee Jyoti Strange CRNA, MD, Eloisa Mcmanus RN, Breana Role Performed Anesthesiologist Surgeon - Primary Rn Clinical Quality - Primary Black [employer] Coating Equipment Tender Time In 03/28/24 09:34:00 03/28/24 09:34:00 03/28/24 09:34:00 Time Out 03/28/24 09:51:00 03/28/24 09:51:00 03/28/24 09:51:00 Procedure EGD(.), SIGMOIDOSCOPY(.) EGD(.), SIGMOIDOSCOPY(.) EGD(.), SIGMOIDOSCOPY(.) Comments Last Modified By: Marietta RN, Breana Mcmanus RN, Breana Mcmanus RN, Breana 03/28/24 09:51:11 03/28/24 09:51:11 03/28/24 09:51:11 Entry [...] Text: The patient i (more content not included)...[facility] OR PACU I Recordon [id number] OR PACU I RecordMain OR PACU I Record PACU Phase I Document Type FT Summary Primary Physician: Eloisa Hassan MD Finalized Date/Time: 03/28/24 10:43:40 Pt. Name: ELVERBENNIE/Sex: 1945 Male Med Rec #: [id number] Physician: Eloisa Hassan MD Financial #: [id number] Pt. Type: O Room/Bed: / Admit/Disch: 03/28/24 [...] individualized perioperative plan of care The patient's rightto privacy is maintained The patient's value system, [...] with or improved from baseline levels established preoperativelyThe patient's cardiovascular status is consistent with or improved from baseline levels established preoperatively The patient's cardiovascular status is consistent with or improved from baseline levels established preoperatively The patient demonstrates and/or reports adequate pain control throughout the perioperative period The patient received appropriate medication(s), safely administered during the perioperativeperiod Acuity Level PACU I FT Entry 1 Start Time 03/28/24 09:52:00 Stop Time 03/28/24 10:30:00 Acuity Level Acuity Level I Last Modified By: Swetha Gonsalez RN 03/28/24 10:43:37 Finalized By: Swetha Gonsalez RN Document Signatures Signed By: Swetha Gonsalez RN 03/28/24 10:43[facility] Preoperative Recordon [id number] OR Preoperative RecordMain OR Preoperative Record Holding Area Document Type FT Summary Primary Physician: Eloisa Hassan MD Finalized Date/Time: 03/28/24 08:05:02 Pt. Name: LIBORIO DENNISMATTEO Walker./Sex: 1945 Male Med Rec #: [id number] Physician: Eloisa Hassan MD Financial #: [id number] Pt. Type: O Room/Bed: / Admit/Disch: 03/28/24 [...] or her perioperative plan of care The patient'sright to privacy is maintained Surgery Checklist FT [...] Comments: x2 fleets enemas to be done here./SHARIRN Finalized By: Esther Jj RN Document Signatures Signed By: Esther Jj RN 03/28/24 08:05[facility] HospitalOperative Reporton [id number] ReportOperative Report Patient: BENNIE DENNIS Age: 78 years Sex: Male : 1945 Associated Diagnoses: None Author: Eloisa Hassan MD Pre-Procedure Procedure Date 03/28/2024 09:49:00 . Procedure Type: Esophagogastroduodenoscopy with dilation of esophagus with balloon less [...] mL, IV, 20 mL/hr, Routine, Start date 12/11/24 6:43:00 EST, 50 hour(s), Total volume (mL): 1,000, 63 kg, 1.71, m2 Prescriptions Prescribed atorvastatin 80 mg Tab: See Instructions, TAKE 1 TABLET DAILY, # 90 tab(s), Refills(s) 3, Pharmacy:[facility], 167.8, cm, 07/18/23 13:34:00 EDT, Height/Length Dosing, 66.2, kg, 07/18/23 13:34:00 EDT, Weight Dosing Documented Medications Documented Entresto 24 mg-26 mg oral tablet: 1 tab(s), Oral, BID, Refill(s) 0 ICaps AREDS 2: See Instructions, Refill(s) 0, take 1 orally twice a da, Prophylaxis Misc Prescription: Mini fish oil 1340mg one a day One-A-Day [employer] Near[employer]k Formula: 1 tab(s), Oral, Daily, Refill(s) 0, [...] 4 days of the week, Refills(s) 0 Anticoagulant/antiplatelet None. ASA Classification: Class III. . Monitoring: See anesthesia record. . Anticoagulation use: Procedure The procedure was performed in the hospital. See anesthesia record for sedation given during procedure. The patient was positioned starting in the left lateral decubitus position and with safety measures. Endoscope type used was an adult- size, introduced orally, advanced to the 2nd portion [...] biopsies 3. Normal duodenum. Images Procedure images: Rec1_hd_video_2023__[id number].jpg Rec1_hd_video_2023__[id number].jpg Rec1_hd_video_2023__[id number].jpg Rec1_hd_video_2023__[id number].jpg Rec1_hd_video_2023__[id number].jpg Rec1_hd_video_2023__T09_[id number].jpg Rec1_hd_video_2023__T09_[id number].jpg . Post-Procedure Complications: none. Estimated blood loss: none. Specimens: None. Devices/ implants: none left in place. Impression and Plan hiatal hernia Schatzki's ring Erosive gastropathy Recommendations: -Liquid then soft diet today, advance as tolerated tomorrow -Resume home medications -Await pathology results, follow in GI clinic in 1-2 after discharge for Start omeprazole 40 mg daily Resume Coumadin tomorrowNKindred HealthcareComment on above:Result Comment: Electronically Signed By: Debra STEWART, Eloisa Purdy.br\Date and Time Signed: 03/28/2410:12 ESTOther Comment: Missing Attachment - attachment storage system not supported [id number] Can be viewed in source systemMissing Attachment - attachment storage system not supported [id number] Can be viewed [facility] systemMissing Attachment - attachment storage system not supported [id number] Can be viewed in source systemMissing Attachment - attachment storage system not supported [id number] Can be viewed in source systemMissing Attachment - attachment storage system not supported [id number] Can be viewed in source systemMissing Attachment - attachment storage system not supported [id number] Can be viewed in source systemMissing Attachment - attachment storage system not supported [id number] Can be viewed in source systemOperative ReportOperative Report Patient: BENNIE DENNIS Age: 78 years Sex: Male : 1945 Associated Diagnoses: None Author: Eloisa Hassan MD Pre-Procedure Procedure Date 03/28/2024 09:51:00 . Procedure Type: Flexible sigmoidoscopy with biopsy. Procedure provider Performed by Eloisa Hassan MD. Current history and physical Documented on chart. Colonoscopy ([id number]). Comments: 02/28/2023 10:40 EST - Sharmaine BINDER OPERATOR, Marcela L 2013 and 2020 Cardiac catheter w/ stent ([id number]). Comments: 02/28/2023 10:40 EST - Sharmaine BINDER OPERATOR, Marcela L July 2012 Carotid endarterectomy w/ stent ([id number]). Comments: 02/28/2023 10:41 EST - Sharmaine BINDER OPERATOR, Marcela L July 2012. Past Medical History No active or resolved past medical history items have been selected or recorded.. Family History Heart disease Mother Acute myocardial infarction Mother Leukemia Father . Procedure History Colonoscopy ([id number]). Comments: 02/28/2023 10:40 EST - Sharmaine BINDER OPERATOR, Marcela L 2013 and 2020 Cardiac catheter w/ stent ([id number]). Comments: 02/28/2023 10:40 EST - Sharmaine BINDER OPERATOR, Marcela L July 2012 Carotid endarterectomy w/ stent ([id number]). Comments: 02/28/2023 10:41 EST - Sharmaine BINDER OPERATOR, Marcela L July 2012. Colorectal neoplasm risk [...] TABLET DAILY, # 90 tab(s), Refills(s) 3, Pharmacy:[facility], 167.8, cm, 07/18/23 13:34:00 EDT, Height/Length Dosing, 66.2, kg, 07/18/23 13:34:00 EDT, Weight Dosing Documented Medications Documented Entresto 24 mg-26 mg oral tablet: 1 tab(s), Oral, BID, Refill(s) 0 ICaps AREDS 2: See Instructions, Refill(s) 0, take 1 orally twice a da, Prophylaxis Misc Prescription: Mini fish oil 1340mg one a day One-A-Day [employer] Formula: 1 tab(s), Oral, Daily, Refill(s) 0, [...] the left lateral decubitus position. Endoscope type usedwas an adult-size. The endoscope was lubricated then [...] and large internal hemorrhoids Images Procedure images: Rec1_hd_video_2023__[id number].jpg Rec1_hd_video__T09_[id number].jpg Rec1_hd_video__T09_[id number]_259.jpg Rec1_hd_video__T09_[id number]_929.jpg Rec1_hd_video__T09_[id number].jpg Rec1_hd_video__T09_[id number]_312.jpg Rec1_hd_video_2023__T09_56_[id number].jpg Rec1_hd_video__T09_58_[id number].jpg . Post-Procedure Complications: none. Estimated blood loss: Minimal. Specimens: sent to pathology. Devices/ implants: none left in place. Impr (more content not included)...NormalCrystal Clinic Orthopedic CenterComment on above:Result Comment: Electronically Signed By: Debra STEWART, Eloisa Purdy.dana\Date and Time Signed: 03/28/2409:54 ESTOther Comment: Missing Attachment - attachment storage system not supported [id number] Can be viewed in source systemMissing Attachment - attachment storage system not supported [id number] Can be viewed in source systemMissing Attachment - attachment storage system not supported [id number] Can be viewed in source systemMissing Attachment - attachment storage system not supported [id number] Can be viewed in source systemMissing Attachment - attachment storage system not supported [id number] Can be viewed in source systemMissing Attachment - attachment storage system not supported [id number] Can be viewed in source systemMissing Attachment - attachment storage system not supported [id number] Can be viewed in source systemMissing Attachment - attachment storage system not supported [id number] Can be viewed in source systemeGFRon 64-85-1482fRAW26 mL/min/1.73 z0Ndginn>=59C[facility] Clinic Orthopedic CenterComment on above:Performed By: #### [id number] #### [facility] [address], [place] [address]Olubrujekwsmkxpi Office/Clinic Noteon 03-21-2024 Gastroenterology Office/Clinic NoteGastroenterology Office/Clinic Note Chief Complaint Betty Gar ref [...] the correct clinical setting. Clinical and endoscopic correlationis advised. Laboratory Results CBC CMP Basophil Absolute: [...] 94.2 fL (02/20/24) Chloride: 102 mmol/L (02/20/24) [place] Absolute: 0.6 E9/L (02/20/24) CO2: 28 mmol/L (02/20/24) [place] Auto: 8.3 % (02/20/24) Creatinine: 0.9 mg/dL [...] (R13.19: Other dysphagia) 3. 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 Loose stools [...] and parasites, C. difficil (more content not included)...[facility] HospitalComment on above: Result Comment: Electronically Signed By: Debra STEWART, Eloisa Cheung\.br\Date and Time Signed: 03/21/2414:42 ESTAmbulatory Visit Summaryon 25-30-7706Hbreybqqnb Visit SummaryAmbulatory Visit Summary BENNIE DENNIS :1945 Visit Date:03/01/2024 Ambulatory Visit Instructions Your Diagnosis BMI 22.0-22.9, adult Nonsmoker ASCVD (arteriosclerotic cardiovascular disease) Ulcerative colitis Paroxysmal A-fib Diaphragmatic hernia without obstruction or gangrene Your Care Team Attending Physician - Pete Gar MD Primary Care Physician - Pete Gar MD. This Is Your Medications List Contact prescribing [...] EDT With: Cong STEWART, Pete Hooker Where: [address] [address]- Tuesday 11:00 AM EDT With: Where: [address] [address]- Medications What How Much When Instructions Unchanged [...] Take 4 mg orally on mondays, wednesdays andidays and 8mg the other 4 days of [...] you for choosing us for your care. [facility] Medicine Office/Clinic Noteon 63-69-1093Xgpxzr Medicine Office/Cl[facility] NoteFaheywood [facility] Office/Clinic Note Chief Complaint 6m Follow [...] presenting with concerns primarily related to ulcerative colitis.The patient reports experiencing frequent, loose stools postprandially, which started several yearsago. He has been treated with mesalamine, after [...] of arteriosclerotic cardiovascular disease and is under thecare of Dr. Angela Stewart for cardiac management, including monitoring his pacemaker/defibrillator, which recently delivered a therapeutic shock. He [...] cardiovascular disease) (I25.10: Atherosclerotic heart disease of nativecoronary artery without angina pectoris) Continue current cardiovascular management under the supervision of Cardiology. Pacemaker functioning appropriately for another year as per recent evaluation. Ordered: Body Mass Index (BMI) documented 3008F Current tobacco non-user 1036F Depression Screening Negative 3352F Discharge medications reconciled with current medications in outpatient record 1111F [facility] Internal Ambulatory Referral Influenza immunization status assessed [...] to persistent symptoms despite current management. Ordered: [facility] Internal Ambulatory Referral 3. Paroxysmal A-fib (I48.0: Paroxysmal atrial fibrillation) Ongoing cardiology management is adequate with recent device evaluation confirming proper function. Ordered: [facility] Internal Ambulatory Referral 4. 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 5. BMI 22.0-22.9, adult (Z68.22: Body mass index [BMI] 22.0-22.9, adult) Continue current lifestyle and dietary habits with modifications in sweet intake. Ordered: [facility] Internal Ambulatory Referral 6. Nons (more content not included)...NormalCrystal Clinic Orthopedic CenterComment on above:Result Comment: Electronically Signed By: Cong STEWART, Pete Hooker\.br\Date and Time Signed: 03/01/24 10:13 ESTCBC w/ Auto Diffon 88-75-5908Tdbjdekjz/100 WBC (Bld)0.8 %Normal0.0-2.0C[facility] Clinic Orthopedic CenterComment on above:Performed By: #### [id number] #### [facility] [address] [place] [address]Tbrrjndjx/Leukocytes Auto (Bld) [Pure # fraction]0.1 E9/LNormal 0.0-0.2FAdena Pike Medical CenterComment on above:Performed By: #### [id number] #### [facility] [address] [place] [address]Cmnniddkmrk (Bld) [#/Vol]0.3 E9/LNormal0.0-0.5FAdena Pike Medical CenterComment on above:Performed By: #### [id number] #### [facility] [address], [place] [address]Fphgdetbikp/100 WBC (Bld)3.8 %Normal0.0-8.0[facility] Orthopedic CenterComment on above:Performed By: #### [id number] #### [facility] [address], [place] [address]Oubrezljhoy distribution width (RBC) [Ratio]13.2 %Normal 10.9-14.2FAdena Pike Medical CenterComment on above:Performed By: #### [id number] #### [facility] [address] [place] [address]Jjtendlfzl (Bld) [Volume fraction]38.7 %Lvruzg72.7-49.0[facility] Orthopedic CenterComment on above:Performed By: #### [id number] #### [facility] [address] [place] [address]Kmmizvaokb (Bld) [Mass/Vol]13.1 g/dLLow13.5-17.5FAdena Pike Medical CenterComment on above:Performed By: #### [id number] #### [facility] [address] [place] [address] 277[address]Tklyyrdkmwd (Bld) [#/Vol]1.6 E9/LNormal1.0-4.0[facility] Orthopedic CenterComment on above:Performed By: #### [id number] #### [facility] [address] [place] [address]Yagbjxhhnci/100 WBC (Bld)24.5 %Nlxgqg20.0-50.0[facility]opedic CenterComment on above:Performed By: #### [id number] #### [facility] [address] [place] [address]WJL (RBC) [Entitic mass]31.9 hzMvvrnw98.0-34.0[facility]opedic CenterComment on above:Performed By: #### [id number] #### [facility] [address] [place] [address]FQJH (RBC) [Mass/Vol]33.9 g/cVHlewmy91.4-36.0[facility] CenterComment on above:Performed By: #### [id number] #### [facility] [address] [place] [address]YLQ (RBC) [Entitic vol]94.2 tVDymgvy86.0-100.0[facility] CenterComment on above:Performed By: #### [id number] #### [facility] [address] [place] [address]Svoslyzno (Bld) [#/Vol]0.6 E9/LNormal0.2-1.0[facility] Orthopedic CenterComment on above:Performed By: #### [id number] #### [facility] [address], [place] [address]Reqakstdckj (Bld) [#/Vol]4.2 E9/LNormal2.0-7.5FAdena Pike Medical CenterComment on above:Performed By: #### [id number] #### [facility] [address], [place] [address]Zwleufbpjqo/100 WBC (Bld)62.6 %Awgmfg43.0-75.0[facility] Orthopedic CenterComment on above:Performed By: #### [id number] #### [facility] [address], [place] [address]Gnmkdrrx239.0 E9/JEfhqjf450.0-500.0[facility] Comment on above:Performed By: #### [id number] #### [facility] [address] [place] [address]Cpoplgws mean volume (Bld) [Entitic vol]9.2 fLNormal6.4-10.8 [facility] CenterComment on above:Performed By: #### [id number] #### [facility] [address] [place] [address]RBQ (Bld) [#/Vol]4.1 E12/LLow4.3-5.9[facility] Comment on above:Performed By: #### [id number] #### [facility] [address] [place] [address]JHT corrected for nucl RBC Auto (Bld) [#/Vol]6.6 E9/LNormal 4.0-11.0[facility] Orthopedic CenterComment on above:Performed By: #### [id number] #### [facility] [address] [place] [address]GIDQHTCDAMqlnydl By: SYSTEM SYSTEM on 12-10-2647Tvqrcyj [Mass/Vol]4.4 g/dLNormal3.3 - 5.0 gm/dLRemisol ChemAlbumin/Globulin [Mass ratio] 1.5 {ratio}Normal1.1 - 2.2Remisol ChemALP [Catalytic activity/Vol]109 [iU]/dHigh 21 - 98 Int._Unit/LRemisol ChemALT No additional P-5'-P [Catalytic activity/Vol] 42 [iU]/dNormal6 - 46 Int._Unit/LRemisol ChemAnion gap [Moles/Vol]11 mmol/L Normal6 - 16 mEq/LRemisol ChemAST [Catalytic activity/Vol]45 [iU]/dHigh5 - 43 Int._Unit/LRemisol ChemBilirubin [Mass/Vol]0.7 mg/dLNormal0.0 - 1.1 mg/dLRemisol ChemCalcium [Mass/Vol]9.4 mg/dLNormal8.9 - 11.1 mg/dLRemisol ChemChloride [Moles/Vol]102 mmol/EInzfze988 - 111 mmol/LRemisol ChemCholesterol [Mass/Vol]140 mg/gBOzlqbm046 - 200 mg/dLRemisol ChemCholesterol in HDL [Mass/Vol]38 mg/dL Invalid Interpretation CodeRemisol ChemComment on above:Result Comment: '>= 60 LOW RISK' '<= 40 HIGH RISK'Cholesterol in LDL [Mass/Vol]85 mg/dLNormal<=129mg/dLRemisol ChemCholesterol in VLDL [Mass/Vol]30 mg/dLNormal7 - 40 mg/dLRemisol ChemCO2 [Moles/Vol]28 mmol/QAiqpon09 - 31 mmol/LRemisol ChemCreatinine [Mass/Vol]0.9 mg/dLNormal0.5 - 1.3 mg/dLRemisol NpgytKKT95 mL/min/1.73 l3Eqcbie>=59mL/min/1.73 j1Hiqerym ChemGlobulin (S) [Mass/Vol]3.0 g/dLNormal1.4 - 4.0 gm/dLRemisol Chem Glucose [Mass/Vol]91 mg/qVGrxavn93 - 199 mg/dLRemisol ChemPotassium [Moles/Vol] 4.2 mmol/LNormal3.5 - 5.3 mmol/LRemisol ChemProstate specific Ag [Mass/Vol]0.6 ng/mLNormal0.1 - 3.5 ng/mLRemisol ChemComment on above:Interpretive Data: The concentration of PSA determined by different manufacturers can vary due to di fferences in assay methods and reagent specificity. Values obtained from different assay methods cannot be used interchangeably. The methodology used for this result was chemiluminescence using [employer]'s Access Hybritech PSA reagent.Protein [Mass/Vol]7.4 g/dLNormal6.0 - 7.8 gm/dLRemisol ChemSodium [Moles/Vol]137 mmol/HDgwgyr902 - 145 mmol/LRemisol ChemTriglyceride [Mass/Vol] 149 mg/dLNormal<=149mg/dLRemisol ChemUrea nitrogen [Mass/Vol]19 mg/dLNormal5 - 21 mg/dLRemisol ChemUrea nitrogen/Creatinine [Mass ratio]21 mg/pwLmmx74 - 20 Remisol ChemCMPon 81-63-5815Hejtzhb [Mass/Vol]4.4 g/dLNormal3.3-5.0[facility] Clinic Orthopedic CenterComment on above:Performed By: #### [id number] #### [facility] [address] [place], [place] [address]Ktzjfqi/Globulin (S) [Mass conc ratio]1.7Xkspnc4.1-2.2FAdena Pike Medical CenterComment on above:Performed By: #### [id number] #### [facility] [address], [place] [address]KSL [Catalytic activity/Vol]109 Int._Unit/FKygi10-65BtgvgeCrystal Clinic Orthopedic CenterComment on above:Performed By: #### [id number] #### [facility] [address], [place] [address]UDT No additional P-5'-P [Catalytic activity/Vol]42 Int._Unit/L Normal6-46C[facility] Clinic Orthopedic CenterComment on above:Performed By: #### [id number] #### [facility] [address], [place] [address]Briuv gap [Moles/Vol]11 mmol/LNormal6-16[facility] Orthopedic CenterComment on above:Performed By: #### [id number] #### [facility] [address], [place] [address]HLT [Catalytic activity/Vol]45 Int._Unit/LHigh5-43[facility] Orthopedic CenterComment on above:Performed By: #### [id number] #### [facility] [address] [place], [place] [address]Umpbcoijm [Mass/Vol]0.7 mg/dLNormal0.0-1.1FAdena Pike Medical CenterComment on above:Performed By: #### [id number] #### [facility] [address], [place] [address]Lyvsknu [Mass/Vol]9.4 mg/dLNormal8.9-11.1FAdena Pike Medical CenterComment on above:Performed By: #### [id number] #### [facility] [address], [place] [address]Woouspoz [Moles/Vol]102 mmol/QUxvxlm434-349RezrszCrystal Clinic Orthopedic CenterComment on above:Performed By: #### [id number] #### [facility] [address], [place] [address]PD4 [Moles/Vol]28 mmol/DYhinhm01-21BkuumqCrystal Clinic Orthopedic Center Comment on above:Performed By: #### [id number] #### [facility] [address], [place] [address]Fhodpqydma [Mass/Vol]0.9 mg/dLNormal0.5-1.3FAdena Pike Medical CenterComment on above:Performed By: #### [id number] #### [facility] [address], [place] [address]Dmadijlk (S) [Mass/Vol]3.0 g/dLNormal1.4-4.0[facility]opedic CenterComment on above:Performed By: #### [id number] #### [facility] [address], [place] [address]Egtxxle [Mass/Vol]91 mg/xDRyygnd81-196OxbwecCrystal Clinic Orthopedic CenterComment on above:Performed By: #### [id number] #### [facility] [address], [place] [address]Ncrkdluso [Moles/Vol]4.2 mmol/LNormal3.5-5.3FAdena Pike Medical CenterComment on above:Performed By: #### [id number] #### [facility] [address], [place] [address]Agieeot [Mass/Vol]7.4 g/dLNormal6.0-7.8[facility] Orthopedic CenterComment on above:Performed By: #### [id number] #### [facility] [address], [place] [address]Jeuyqn [Moles/Vol]137 mmol/HGyober057-492YpobxiCrystal Clinic Orthopedic CenterComment on above:Performed By: #### [id number] #### [facility] [address], [place] [address]Eccc nitrogen [Mass/Vol]19 mg/dLNormal5-21[facility] Orthopedic CenterComment on above:Performed By: #### [id number] #### [facility] [address], [place] [address]Rqgj nitrogen/Creatinine [Mass ratio]21 No LtuujDjpq99-62GaemqiCrystal Clinic Orthopedic CenterComment on above:Performed By: #### [id number] #### [facility] [address], [place] [address]NZIODEVYOHSbjwkjl By: SYSTEM SYSTEM on 13-95-2976Aduukaroo/100 WBC (Bld)0.8 %Normal0.0 - 2.0 %Remisol HemeBasophils/Leukocytes Auto (Bld) [Pure # fraction]0.1 E9/LNormal0.0 - 0.2 E9/LRemisol HemeEosinophils (Bld) [#/Vol]0.3 E9/LNormal0.0 - 0.5 E9/LRemisol HemeEosinophils/100 WBC (Bld)3.8 %Normal0.0 - 8.0 %Remisol HemeErythrocyte distribution width (RBC) [Ratio]13.2 %Onxmnt33.9 - 14.2 %Remisol HemeHematocrit (Bld) [Volume fraction]38.7 %Pcnbxv65.7 - 49.0 % Remisol HemeHemoglobin (Bld) [Mass/Vol]13.1 g/dLLow13.5 - 17.5 gm/dLRemisol Heme Lymphocytes (Bld) [#/Vol]1.6 E9/LNormal1.0 - 4.0 E9/LRemisol HemeLymphocytes/100 WBC (Bld)24.5 %Hyxwcz44.0 - 50.0 %Remisol HemeMCH (RBC) [Entitic mass]31.9 pg Zmppey50.0 - 34.0 pgRemisol HemeMCHC (RBC) [Mass/Vol]33.9 g/aNGzbrow74.4 - 36.0 gm/dLRemisol HemeMCV (RBC) [Entitic vol]94.2 gIPabyvy33.0 - 100.0 fLRemisol Heme Monocytes (Bld) [#/Vol]0.6 E9/LNormal0.2 - 1.0 E9/LRemisol HemeMonocytes/100 WBC (Bld)8.3 %Normal4.0 - 14.0 %Remisol HemeNeutrophils (Bld) [#/Vol]4.2 E9/LNormal 2.0 - 7.5 E9/LRemisol HemeNeutrophils/100 WBC (Bld)62.6 %Rbimpv81.0 - 75.0 % Remisol DxdkRwaazwkm934.0 E9/VMwmovq426.0 - 500.0 E9/LRemisol HemePlatelet mean volume (Bld) [Entitic vol]9.2 fLNormal6.4 - 10.8 fLRemisol HemeRBC (Bld) [#/Vol] 4.1 E12/LLow4.3 - 5.9 E12/LRemisol HemeWBC corrected for nucl RBC Auto (Bld) [#/Vol]6.6 E9/LNormal4.0 - 11.0 E9/LRemisol HemeLipid Panelon 02-20-2024 Cholesterol [Mass/Vol]140 mg/vROfmlen919-275YudqkzCrystal Clinic Orthopedic CenterComment on above:Performed By: #### [id number] #### [facility] [address], [place] [address]Fkqhddaugmz in HDL [Mass/Vol]38 mg/dLInvalid Interpretation CodeCrystal Clinic Orthopedic CenterComment on above:Result Comment: '>= 60 LOW RISK' '<= 40 HIGH RISK'Performed By: #### [id number] #### [facility] [address], [place] [address]Bqxikkrqaxj in LDL [Mass/Vol]85 mg/dLNormal<=129C[facility] Orthopedic CenterComment on above:Performed By: #### [id number] #### [facility] [address] [place], [place] [address]Lsrawopqvmk in VLDL [Mass/Vol]30 mg/dLNormal7-40[facility] Orthopedic CenterComment on above:Performed By: #### [id number] #### [facility] [address] [place], [place] [address]Znyeaecpluno [Mass/Vol]149 mg/dLNormal<=149C[facility] Clinic Orthopedic CenterComment on above:Performed By: #### [id number] #### [facility] [address] [place], [place] [address]XQN Screen, Totalon 57-74-8134Bafsxqza specific Ag [Mass/Vol] 0.6 ng/mLNormal0.1-3.5FAdena Pike Medical CenterComment on above:Result Comment: The concentration of PSA determined by different manufacturers can vary due to differences in assay methods and reagent specificity. Values obtained from different assay methods cannot be used interchangeably. The methodology used for this result was chemiluminescence using [employer]'s Access Hybrite[employer] PSA reagent.Performed By: #### [id number] ####[facility] [address] [place], [place] [address]pQYQdx 81-65-7698hULL51 mL/min/1.73 x5Sjpsbx>=59C[facility] Orthopedic CenterComment on above:Performed By: #### [id number] #### [facility] [address] [place], [place] [address]Lwmjnl Medicine Office/Clinic Noteon 79-56-0561Swlntx Medicine Office/Clinic NoteChief Complaint Medicare Wellness Visit History of Present [...] for MERS/COVID-19 : N/A Areli Fitzgerald LPN Keena 09/06/2023 10:52 EDT Medicare/Medicaid Summary Numeric Rating Pain Score : 7 Areli Fitzgerald LPN Keena Diez 09/06/2023 12:33 EDT Systolic Blood Pressure : 110 mmHg Diastolic Blood Pressure : 64 mmHg Peripheral Pulse Rate : 66 bpm Respiratory Rate : 16 br/min SpO2 : 93 % Areli Fitzgerald LPN Keena 09/06/2023 11:00 EDT Chief Complaint : Medicare [...] actual or suspected pain Areli Fitzgerald LPN Keena Diez 09/06/2023 10:52 EDT Hearing and Vision Screening FT FT Whisper Test Comments : Patient does not have hearing aids, states he doesn't think he needs them. Vision Screen Comments : Wears corrective lenses. [facility]. Areli Fitzgerald LPN Keena Diez 09/06/2023 12:33 EDT Advance Directive FT Type of Advance Directive : Living will, Medical durable power of health care attorney Patient Wishes to Receive Further Information on Advance Directives : No Organ Donation Consent : No Advance Directive : Yes Areli Fitzgerald LPN - 09/06/2023 12:33 EDT Procedures / Surgeries FT - Procedure History (As Of: 09/06/2023 12:56:23 EDT) Anesthesia Minutes: 0 ; Procedure Name: Carotid endarterectomy w/ stent ; Procedure Minutes: 0 ; Comments: 02/28/2023 10:41 Marcela Ignacio LPN July 2012 ; Last Reviewed Dt/Tm: 09/06/2023 12:45:27 EDT Anesthesia Minutes: 0 ; Procedure Name: Cardiac catheter w/ stent ; Procedure Minutes: 0 ; Comments: 02/28/2023 10:40 Marcela Ignacio LPN July 2012 ; Last Reviewed Dt/Tm: 09/06/2023 12:45:27EDT Anesthesia Minutes: 0 ; Procedure Name: Colonoscopy ; Procedure Minutes: 0 ; Comments: 02/28/2023 10:40 Marcela Ignacio LPN 2013 and 2020 ; Last Reviewed Dt/Tm: [...] Past Year : No Areli Fitzgerald LPN - 09/06/2023 12:59 EDT Worried About Falling : [...] fasten my seat belt Areli Fitzgerald LPN - 09/06/2023 10:52 EDT Depression Screening Little Interest, Pleasure in Activities (ref) : Not at all Feeling Down, Depre (more content not included)...[facility]ger HospitalComment on above:Result Comment: Electronically Signed By: Pete Gar MD\.br\Date and Time Signed: 09/07/23 13:02 EDT\.br\Electronically Co-Signed By: Areli Fitzgerald LPN\.br\Date and Time Co-Signed: 09/06/23 13:19 EDT Ambulatory Visit Summaryon 08-56-0014Modfiukeiz Visit Summary BENNIE DENNIS :1945 Visit Date:09/06/2023 Ambulatory Visit Instructions Your Diagnosis Annual visit for general adult medical examination without abnormal findings Hemiparesis Paroxysmal A-fib Ulcerative colitis ASCVD (arteriosclerotic cardiovascular disease) On statin therapy Screening for prostate cancer Anticoagulated Your Care Team Attending Physician - Pete Gar MD Primary Care Physician - Pete Gar MD This Is Your Medications List Mis Prescription aspirin (aspirin 81 mg Oral EC [...] Appointments Tuesday 10:00 AM EDT [facility]: [facility] Interpretation [address] [place] [address]- \.br\ Tuesday 11:00 AM EDT \.br\ With:\.br\ [facility] KATIEROBERTALINDSAYLIBORIOMATTEO Starkey :1945 Visit Date:09/06/2023 Ambulatory Visit Instructions Your Diagnosis ASCVD (arteriosclerotic cardiovascular disease) Paroxysmal A-fib Hemiparesis BMI 22.0-22.9, adult Nonsmoker Hypotension Your Care Team Attending Physician - Pete Gar MD Primary Care Physician - Pete Gar MD This Is Your Medications List Contact prescribing physician if questions or concerns Mis Prescription aspirin (aspirin 81 mg Oral EC [...] Take 4 mg orally on mondays, wednesdays andidays and 8mg the other 4 days of [...] fat. BMI does not measure body fat directly.Rather, it is an alternative to procedures that [...] your height. Both height and weight are measured,and the BMI is calculated from those numbers. This can be done either in [place] ([place] or metric measurements. Note that charts and online BMI calculators are available to help you find your BMI quickly and easily without having to do these calculations yourself. To calculate your BMI in [place] ([place] measurements: 1. Measure (more content not included)...[facility] Medicine Office/Clinic Noteon 60-73-1423Tcfeld Medicine Office/Clinic NoteHPI Staff Bennie is a 78 year old [...] cardiovascular disease) (I25.10: Atherosclerotic heart disease of nativecoronary artery without angina pectoris) - No CP [...] inactivated 02/20/2019 Recorded pneumococcal 13-valent vaccine 02/05/2019 RecordedBerger HospitalComment on above:Result Comment: Electronically Signed By: Cong STEWART, Pete Bell.br\Date and Time Signed: 09/06/23 11:24 EDTPatient Educationon 09-06-2023 Patient EducationCardiovascular Atrial Fibrillation Atrial fibrillation is a type of irregular or rapid heartbeat (arrhythmia). In atrial fibrillation,the top part of the heart (atria) beats [...] as heart failure, coronary artery disease, heart valveproblems, or heart surgery. ? Diabetes. ? Overactive [...] signals of the heart. ? An ambulatory gambling monitor to record your heart's activity for a [...] take any medicines that contain aspirin or NSAIDs,such as ibuprofen. These medicines increase your risk [...] weakness. ? Trouble breathing. (more content not included)...[facility] HospitalPatient EducationNutrition BMI for Adults What is BMI? Body mass index (BMI) is a number that is calculated from a person's weight and height. BMI can help estimate how much of a person's weight is composed of fat. BMI does not measure body fat directly.Rather, it is an alternative to procedures that [...] your height. Both height and weight are measured,and the BMI is calculated from those numbers. This can be done either in [place] ([place] or metric measurements. Note that charts and online BMI calculators are available to help you find your BMI quickly and easily without having to do these calculations yourself. To calculate your BMI in [place] ([place] measurements: 1. Measure your weight in [...] for Disease Control and Prevention: www.cdc.gov ? [place] [employer]: www.heart.org ? National Heart, Lung, and Blood [place]: www.nhlbi.nih.gov Summary ? Body mass index (BMI) is a number that is calculated from a person's weight and height. ? BMI may help estimate how much of a person's weight is composed of fat. BMI can help identify those who may be at higher risk for certain medical problems. ? BMI can be measured using Israeli measurements or metric measurements. ? BMI charts are used to identify whether you are underweight, normal weight, overweight, or obese. This information is not intended to replace advice given to you by your health care provider. Make sure you discuss any questions you have with your health care provider. Document Revised: 12/26/2019 Document Reviewed: 11/02/2019 Status Overload Patient Education ? 2022 [employer] Screenson [id number]#1.00TIFF Berger HospitalAmbulatory Visit Summaryon 45-99-7141Dvojnszzel Visit Summary ELVERLIBORIOMATTEO Starkey :1945 Visit Date:07/18/2023 Ambulatory Visit Instructions Your Diagnosis Hypotension BMI 23.0-23.9, adult Non-smoker Your Care Team Attending Physician - Cary Brennan Primary Care Physician - Pete Gar MD [...] Appointments Tuesday. 2023 10:45 AM EDT With: Pete Gar MD Where: [facility] [address] \.br\ Medications\.br\ What How Much When Instructions\.br\ Unchanged atorvastatin (atorvastatin 80 mg Tab) 1 Tablets By Mouth Every day\.br\ Unchanged balsalazide (balsalazide 750 mg oral capsule) 3 Capsules By Mouth 3 times a day\.br\ Unchanged carvedilol (carvedilol 12.5 mg Tab) 1 Tablets By Mouth 2 times a day\.br\ Unchanged multivitaminwith minerals (ICaps AREDS 2) See instructions take 1 orally twice a da \.br\ Unchanged sacubitril-valsartan (Entresto 24 mg-26 mg oral [...] treatment for.\.br\ Adhesive capsulitis of shoulder\.br\ ASCVD (arteriosclerotic cardiovascular disease)\.br\ DDD (degenerative disc disease), lumbar\.br\ Dehydration\.br\ Hemiparesis\.br\ Hx of arterial ischemic stroke\.br\ Hx of heart artery stent\.br\ Hypotension\.br\ Paroxysmal A-fib\.br\ Prostate disorder\.br\ Ulcerative colitis\.br\ Patient Survey\.br\ You may receive a survey via text or e-mail asking about your office visit. Please share your experience with us by completing your survey. We appreciate your feedback and thank you for choosing us for your care.\.br\ \.br\[facility] Medicine Office/Clinic Noteon [id number] Medicine Office/Clinic NoteHPI Staff Bennie is a 78 year old [...] inactivated 02/20/2019 Recorded pneumococcal 13-valent vaccine 02/05/2019 RecordedNoChillicothe HospitalComment on above:Result Comment: Electronically Signed By: Cary Brennan\.br\Date and Time Signed: 07/18/23 13:52 EDTED Note-Physicianon [id number] Note-[id number]#1.00TIFF [facility] 07-13-2023 Family Medicine Office/Clinic NoteHPI Staff Bennie is a 77 year old male presenting for ER follow up Called [facility] med records 07/04 requested his ER records ER followup: Hospital: [place] Visit date: 06/21/23 Symptoms the patient presented [...] was brought to the emergency room of [facility] on Tuesday morning, 07/05/2023, due to severe diarrhea that began on 07/04/2023. Despite the initial plan to visit the inspector repairer for new glasses, the patient insisted on [...] under the care of Dr. Jalloh of [place] for his ulcerative colitis. He expresses concern [...] fluid consumption. After his hospital stay, he wasconsuming Gatorade and apple juice. Review of Systems [...] encounter, evaluating and assessing the patient, documenting thevisit, and ordering appropriate follow-up work was 40 minutes. 1. Dehydration (E86.0: Dehydration) Requested records from the [facility]. The patient's blood pressure is still [...] with voice recognition artificial intelligence software, specifically [employer], [employer] and or [employer]. Substitutions may have occurred due to the inherent limitations of voice recognition and artificial intelligence software. ATTESTATION: Documentation services were performed after patient or guardian consented to allow [employer] to record this visit. SHAE electronic warfare specialist and provider reviewed before signing. SHAE: [...] oral capsule, 2250 mg= (more content not included)...Normal [facility]opedic CenterComment on above:Result Comment: Electronically Signed By: Cong STEWART, Pete Hooker\.br\Date and Time Signed: 07/13/23 13:42 EDT\.br\Electronically Co-Signed By: Crystal Gambino\.br\Date and Time Co- Signed: 07/11/23 16:51 EDTAmbulatory Visit Summaryon 65-76-1215Kedakfcazl Visit Summary BENNEI DENNIS :1945 Visit Date:07/11/2023 Ambulatory Visit Instructions [...] 1:40 PM EDT With: Cary Brennan Where: [facility] [place] [id number]- \.br\ Medications\.br\ What How Much When Instructions\.br\ Unchanged atorvastatin (atorvastatin 80 mg Tab) 1 [...] physician if questions or concerns \.br\ Unchanged sacubitril-valsartan (Entresto 24 mg-26 mg oral tablet) 1 Tablets By Mouth 2 times a dayContact prescribing physician if questions or concerns \.br\ [...] No Known Medication Allergies\.br\ Problems\.br\ Ongoing - Anyproblem that you are currently receiving treatment for.\.br\ Adhesive capsulitis of shoulder\.br\ CVD (arteriosclerotic cardiovascular disease)\.br\ DDD (degenerative disc disease), lumbar\.br\ Dehydration\.br\ Hemiparesis\.br\ Hx of arterial ischemic stroke\.br\ Hx of heart artery stent\.br\ Paroxysmal A-fib\.br\ Prostate disorder\.br\ Ulcerative colitis\.br\ Patient Survey\.br\ You may receive a survey via text or e-mail asking about your office visit. Please share your experience with us by completing your survey. We appreciate your feedback and thank you for choosing us for your care.\.br\ \.br\[facility] CenterAmbulatory Visit Summary BENNIE DENNIS :1945 Visit Date:07/11/2023 [...] 1:40 PM EDT With: Cary Brennan Where: [facility] Medicine [address] [address]- \.br\ Medications\.br\ What How Much When Instructions\.br\ Unchanged atorvastatin (atorvastatin 80 mg Tab) 1 [...] physician if questions or concerns \.br\ Unchanged sacubitril-valsartan (Entresto 24 mg-26 mg oral tablet) 1 Tablets By Mouth 2 times a dayContact prescribing physician if questions or concerns \.br\ [...] No Known Medication Allergies\.br\ Problems\.br\ Ongoing - Anyproblem that you are currently receiving treatment for.\.br\ Adhesive capsulitis of shoulder\.br\ CVD (arteriosclerotic cardiovascular disease)\.br\ DDD (degenerative disc disease), lumbar\.br\ Dehydration\.br\ Hemiparesis\.br\ Hx of arterial ischemic stroke\.br\ Hx of heart artery stent\.br\ Paroxysmal A-fib\.br\ Prostate disorder\.br\ Ulcerative colitis\.br\ Patient Survey\.br\ You may receive a survey via text or e-mail asking about your office visit. Please share your experience with us by completing your survey. We appreciate your feedback and thank you for choosing us for your care.\.br\ \.br\Preet [facility] CenterED Note-Physicianon [id number] Note-Physician [id number]#1.00TIFFNormalFisher Holy Cross HospitalCHEMISTRYOrdered By: SYSTEM SYSTEM on 82-63-4365Hwsehrj [Mass/Vol]4.1 g/dL Normal3.3 - 5.0 gm/dLFT RemisolAlbumin/Globulin [Mass ratio]1.2 {ratio}Normal 1.1 - 2.2FTMC RemisolALP [Catalytic activity/Vol]91 [iU]/aBdrbfc65 - 98 Int._Unit/LFTMC RemisolALT No additional P-5'-P [Catalytic activity/Vol]20 [iU]/dNormal6 - 46 Int._Unit/LFTMC RemisolAnion gap [Moles/Vol]12 mmol/LNormal6 - 16 mEq/LFTMC RemisolAST [Catalytic activity/Vol]43 [iU]/dNormal5 - 43 Int._Unit/LFTMC RemisolBilirubin [Mass/Vol]0.8 mg/dLNormal0.0 - 1.1 mg/dLFT RemisolCalcium [Mass/Vol]9.3 mg/dLNormal8.9 - 11.1 mg/dLFT RemisolChloride [Moles/Vol]103 mmol/OHbczzi606 - 111 mmol/LFTMC RemisolCholesterol [Mass/Vol]154 mg/tTHmnsej554 - 200 mg/dLFT RemisolCholesterol in HDL [Mass/Vol]47 mg/dL Invalid Interpretation CodeFTMC RemisolComment on above:Interpretive Data: HDL > or equal to 60 mg/dL: Low cardiovascular risk HDL < 40 mg/dL : High cardiovascular riskCholesterol in LDL [Mass/Vol]87 mg/dL Normal<=129mg/dLFTMC RemisolCholesterol in VLDL [Mass/Vol]19 mg/dLNormal7 - 40 mg/dLFTMC RemisolCO2 [Moles/Vol]28 mmol/VZymelb53 - 31 mmol/LFTMC Remisol Creatinine [Mass/Vol]0.9 mg/dLNormal0.5 - 1.3 mg/dLFTMC RemisolGFR/1.73 sq M.predicted among non-blacks MDRD (S/P/Bld) [Vol rate/Area]89 mL/min/1.73 m2 Normal>=59mL/min/1.73 m2FT Chem SComment on above:Interpretive Data: Chronic kidney disease could be indicated at eGFR's of less than 60 mL/min/1.73m2. Kidney failure is indicated at less than 15 mL/min/1.73m2.Globulin (S) [Mass/Vol]3.5 g/dLNormal1.4 - 4.0 gm/dLFTMC RemisolGlucose [Mass/Vol]93 mg/dL Vgolrz46 - 199 mg/dLFTMC RemisolComment on above:Interpretive Data: If this glucose result represents a fasting glucose, interpretation should referto the following reference range: 55-99 mg/dLPotassium [Moles/Vol]4.5 mmol/LNormal3.5 - 5.3 mmol/LFTMC RemisolProstate specific Ag [Mass/Vol]0.5 ng/mLNormal0.1 - 3.5 ng/mLFTMC RemisolComment on above:Interpretive Data: The concentration of PSA determined by different manufacturers can vary due to differences in assay methods and reagent specificity. Values obtained from different assay methods cannot be used interchangeably. The methodology used for this result was chemiluminescence using [employer]'s Access [employer] PSA reagent.Protein [Mass/Vol]7.6 g/dLNormal6.0 - 7.8 gm/dLFTMC RemisolSodium [Moles/Vol]138 mmol/L Upuivv540 - 145 mmol/LFTMC RemisolTriglyceride [Mass/Vol]97 mg/dLNormal <=149mg/dLFTMC RemisolUrea nitrogen [Mass/Vol]19 mg/dLNormal5 - 21 mg/dLFTMC RemisolUrea nitrogen/Creatinine [Mass ratio]21 mg/qfSgtd54 - 20FT[facility] Remisol HEMATOLOGYOrdered By: SYSTEM SYSTEM on 54-58-0865Pqrdcaczi/100 WBC (Bld)0.9 % Normal0.0 - 2.0 %[facility] HemeAutoSSBasophils/Leukocytes Auto (Bld) [Pure # fraction]0.1 E9/LNormal0.0 - 0.2 E9/LFTMC HemeAutoSSEosinophils/100 WBC (Bld)3.8 %Normal0.0 - 8.0 %[facility] HemeAutoSSEosinophils/Leukocytes Auto (Bld) [Pure # fraction]0.3 E9/LNormal0.0 - 0.5 E9/LFTMC HemeAutoSSLymphocytes/100 WBC (Bld) 22.4 %Nkifxf25.0 - 50.0 %[facility] HemeAutoSSLymphocytes/Leukocytes Auto (Bld) [Pure # fraction]1.6 E9/LNormal1.0 - 4.0 E9/LFTMC HemeAutoSSMonocytes/100 WBC (Bld)9.1 %Normal4.0 - 14.0 %[facility] HemeAutoSSMonocytes/Leukocytes Auto (Bld) [Pure # fraction]0.6 E9/LNormal0.2 - 1.0 E9/LFTMC HemeAutoSSNeutrophils/100 WBC (Bld) 63.8 %Xcegov63.0 - 75.0 %[facility] HemeAutoSSNeutrophils/Leukocytes Auto (Bld) [Pure # fraction]4.5 E9/LNormal2.0 - 7.5 E9/LFTMC HemeAutoSSHEMATOLOGYOrdered By: Nyasia Escalona on 90-17-5321Jvvwbongoyy distribution width (RBC) [Ratio]13.9 % Drmirp28.9 - 14.2 %[facility] HemeAutoSSHematocrit (Bld) [Volume fraction]40.4 %Normal 37.7 - 49.0 %[facility] HemeAutoSSHemoglobin (Bld) [Mass/Vol]13.4 g/dLLow13.5 - 17.5 gm/dLFTMC HemeAutoSSMCH (RBC) [Entitic mass]31.0 yhIjgzic89.0 - 34.0 pgFINTEGRIS [facility] HemeAutoSSMCHC (RBC) [Mass/Vol]33.3 g/cTDgstvf27.4 - 36.0 gm/dLFTMC HemeAutoSS MCV (RBC) [Entitic vol]92.9 cFBzdufy67.0 - 100.0 fLINTEGRIS [facility] HemeAutoSSPlatelet mean volume (Bld) [Entitic vol]9.2 fLNormal6.4 - 10.8 fLINTEGRIS [facility] HemeAutoSSPlatelets (Bld) [#/Vol]229.0 E9/VLohlcu922.0 - 500.0 E9/[facility] HemeAutoSSRBC (Bld) [#/Vol] 4.3 E12/LNormal4.3 - 5.9 E12/[facility] HemeAutoSSWBC corrected for nucl RBC Auto (Bld) [#/Vol]7.1 E9/LNormal4.0 - 11.0 E9/[facility] HemeAutoSSCBC AUTO DIFFon 48-24-9738KVHM #0.1 103/ulNormal0.0-0.1Mckitrick HospitalComment on above: Performed By: #### CBC #### [facility] [address] [place] [address] Dr. Kj DunnBasophils/100 WBC (Bld)0.9 %Normal0.2-2.0[facility] Comment on above:Performed By: #### CBC #### [facility] [address] [place] [address] Dr. Kj Muhammad #0.2 103/ulNormal0.0-0.7The [facility] HospitalComment on above: Performed By: #### CBC #### [facility] [address] [place] [address] Dr. Kj Northosinophils/100 WBC (Bld)3.1 %Normal0.9-7.0[facility] Comment on above:Performed By: #### CBC #### [facility] [address] [place] [address] Dr. Yilan ChangErythrocyte distribution width (RBC) [Ratio]13.3 %Sapggn10.0-15.0 The [facility] HospitalComment on above:Performed By: #### CBC #### [facility] [address] [place] [address] Dr. Kj DunnHematocrit (Bld) [Volume fraction]39.2 %Critically low42.0-54.0 The [facility] HospitalComment on above:Performed By: #### CBC #### [facility] [address] [place] [address] Dr. Kj DunnHemoglobin (Bld) [Mass/Vol]13.0 g/dLCritically low14.0-18.0The [facility] HospitalComment on above:Performed By: #### CBC #### [facility] [address] [place] [address] Dr. Kj Priest #0.02 10e3/ulNormal0.00-0.03The [facility] HospitalComment on above:Performed By: #### CBC #### [facility] [address] [place] [address] Dr. Kj Priest %0.3 %Normal0.0-0.5The [facility] HospitalComment on above: Performed By: #### CBC #### [facility] [address] [place] [address] Dr. Kj Bo #2.7 103/ulNormal1.2-3.8The [facility] HospitalComment on above:Performed By: #### CBC #### [facility] [address] [place] [address] Dr. Kj Lermahocytes/100 WBC (Bld)38.8 %Ejbdtr48.5-60.0The [facility] HospitalComment on above:Performed By: #### CBC #### [facility] [address] [place] [address] Dr. Kj AzulUAL DIFF REQNONormalThe Wayne HospitalComment on above: Performed By: #### CBC #### [facility] [address] [place] [address] Dr. Kj Waters (RBC) [Entitic mass]31.0 jkQzvfkc43.9-34.0The [facility] HospitalComment on above:Performed By: #### CBC #### [facility] [address] [place] [address] Dr. Kj Mazariegos (RBC) [Mass/Vol]33.2 g/jDKfznih09.9-35.2The [facility] HospitalComment on above:Performed By: #### CBC #### [facility] [address] [place] [address] Dr. Kj Mazariegos (RBC) [Entitic vol]93.3 xGJbayzv86.0-94.0The [facility] HospitalComment on above:Performed By: #### CBC #### [facility] [address] [place] [address] Dr. Kj Gonzalez #0.5 103/ulNormal0.3-0.8The [facility] HospitalComment on above:Performed By: #### CBC #### [facility] [address] [place] [address] Dr. Kj Pizanoocytes/100 WBC (Bld)7.5 %Normal1.7-12.0[facility] Comment on above:Performed By: #### CBC #### [facility] [address] [place] [address] Dr. Kj Galeas #3.4 103/ulNormal1.4-6.5The [facility] HospitalComment on above:Performed By: #### CBC #### [facility] [address] [place] [address] Dr. Kj Bautistautrophils/100 WBC (Bld)49.4 %Vkqhpy81.0-75.0The [facility] HospitalComment on above:Performed By: #### CBC #### [facility] [address] [place] [address] Dr. Kj Dianelet mean volume (Bld) [Entitic vol]10.1 fLNormal9.5-13.5The [facility] HospitalComment on above:Performed By: #### CBC #### [facility] [address] [address] [address] Kj DunnPLT248 103/yjPqysxz610-900Fon [facility] HospitalComment on above: Performed By: #### CBC #### [facility] [address] [place] [address] Dr. Kj DunnRBC4.20 106/ulCritically low4.70-6.10The [facility] HospitalComment on above:Performed By: #### CBC #### [facility] [address] [place] [address] Dr. Kj DunnWBC6.8 103/ulNormal4.0-11.0The [facility] HospitalComment on above: Performed By: #### CBC #### [facility] [address] [place] [address] Dr. Kj DunnPROF CHEM 8 (BAS METB)on 85-55-7654Dyvzj gap [Moles/Vol]9.8 mmol/LNormalThe [facility] HospitalComment on above:Performed By: #### BMP #### [facility] [address] [place] [address] Dr. Kj DunnCalcium [Mass/Vol]9.2 mg/dLNormal8.5-10.1[facility] Comment on above:Performed By: #### BMP #### [facility] [address] [place] [address] Dr. Kj DunnChloride [Moles/Vol]104 mmol/PUbtdxg11-758Vbb [facility] Comment on above:Performed By: #### BMP #### [facility] [address] [place] [address] Dr. Kj DunnCO2 [Moles/Vol]30.7 mmol/PKlrdtk98.0-32.0[facility] Comment on above:Performed By: #### BMP #### [facility] [address] [place] [address] Dr. Kj DunnCreatinine [Mass/Vol]0.98 mg/dLNormal0.70-1.30The [facility] HospitalComment on above:Performed By: #### BMP #### [facility] [address] [address] [address] Underwood ChangEGFR-AF KAZAKH>60Normal>=60The [facility] HospitalComment on above:Performed By: #### BMP #### [facility] [address] [address] [address] Underwood ChangEGFR-NON AF KAZAKH>60Normal>=60The [facility] HospitalComment on above:Performed By: #### BMP #### [facility] [address] [address] [address] Kj DunnGlucose [Mass/Vol]99 mg/eLLfbhdb63-135Uut [facility] Comment on above:Performed By: #### BMP #### [facility] [address] [address] [address] Kj DunnPotassium [Moles/Vol]4.5 mmol/LNormal3.5-5.1[facility] Comment on above:Performed By: #### BMP #### [facility] [address] [address] [address] Kj DunnSodium [Moles/Vol]140 mmol/NKnwsmw328-572Elp [facility] Comment on above:Performed By: #### BMP #### [facility] [address] [address] [address] Kj DunnUrea nitrogen [Mass/Vol]24.0 mg/dLCritically high7.0-18.0The [facility] HospitalComment on above:Performed By: #### BMP #### [facility] [address] [address] [address] jK Graf nitrogen/Creatinine [Mass ratio]24.5 mg/mgNormalThe [facility] HospitalComment on above:Performed By: #### BMP #### [facility] [address] [address] [address] Kj DunnBasophils Auto (Bld) [#/Vol]Ordered By: Sebas Jalloh on 20-18-3896Otaearfvm (Bld) [#/Vol]0.1 10*3/uL0.0-0.2FHolmes County Joel Pomerene Memorial HospitalBasophils/100 WBC Auto (Bld)Ordered By: Sebas Jalloh on 06-30-2022 Basophils/100 WBC (Bld)0.7 %.[facility] YoungstownEosinophils Auto (Bld) [#/Vol]Ordered By: Sebas Jalloh on 38-44-9896Fhkpfhzwsjm (Bld) [#/Vol]0.1 10*3/uL0.0-0.45[facility] YoungstownEosinophils/100 WBC Auto (Bld) Ordered By: Sebas Jalloh on 76-23-6933Ixblevoaqky/100 WBC (Bld)1.8 %.[facility] YoungstownErythrocyte distribution width Auto (RBC) [Ratio]Ordered By: Sebas Jalloh on 89-30-3650Xstbtqkxqqh distribution width (RBC) [Ratio]13.8 %12.0-14.8[facility] YoungstownHematocrit Auto (Bld) [Volume fraction]Ordered By: Sebas Jalloh on 92-41-5535Umjqxmosek (Bld) [Volume fraction]39.6 %38.8-50.0[facility] YoungstownHemoglobin [Mass/volume] in BloodOrdered By: Sebas Jalloh on 09-56-4778Vfwrojwazt (Bld) [Mass/Vol]13.6 g/dL13.0-17.0[facility] YoungstownLeukocytes [#/volume] corrected for nucleated erythrocytes in Blood by Automated coun Ordered By: Sebas Jalloh on 31-93-0418AEN corrected for nucl RBC Auto (Bld) [#/Vol]8.0 10*3/uL4.1-10.5FHolmes County Joel Pomerene Memorial HospitalLymphocytes Auto (Bld) [#/Vol]Ordered By: Sebas Jalloh on 64-53-8777Aohgkgcgowl (Bld) [#/Vol]2.5 10*3/uL1.00-4.8[facility] YoungstownLymphocytes/100 WBC Auto (Bld) Ordered By: Sebas Jalloh on 41-59-2351Rttrqpdeisr/100 WBC (Bld)30.5 %.[facility] YoungstownMCH Auto (RBC) [Entitic mass]Ordered By: Sebas Jalloh on 94-37-4388LNR (RBC) [Entitic mass]31.5 pg27.5-35.2FHolmes County Joel Pomerene Memorial HospitalMCHC Auto (RBC) [Mass/Vol]Ordered By: Sebas Jalloh on 16-20-3044DARH (RBC) [Mass/Vol]34.4 g/dL32.5-35.6FHolmes County Joel Pomerene Memorial HospitalMCV Auto (RBC) [Entitic vol]Ordered By: Sebas Jalloh on 83-76-3172CKO (RBC) [Entitic vol]91.4 fL83.5-101[facility] YoungstownMonocytes Auto (Bld) [#/Vol] Ordered By: Sebas Jalloh on 73-19-9696Dfcyfwakf (Bld) [#/Vol]0.5 10*3/uL0.0-0.8 [facility] YoungstownMonocytes/100 WBC Auto (Bld)Ordered By: Sebas Jalloh on 67-29-9404Oeeszcpmm/100 WBC (Bld)6.4 %.[facility] YoungstownNeutrophils Auto (Bld) [#/Vol]Ordered By: Sebas Jalloh on 06-30-2022 Neutrophils (Bld) [#/Vol]4.9 10*3/uL1.8-7.7FHolmes County Joel Pomerene [facility] Hospital Neutrophils/100 WBC Auto (Bld)Ordered By: Sebas Jalloh on 06-30-2022 Neutrophils/100 WBC (Bld)60.6 %.[facility] YoungstownNucleated erythrocytes [Presence] in Blood by Automated countOrdered By: Sebas Jalloh on 24-72-5474Vsykzktbv RBC Auto Ql (Bld)0.1 /100{WBC}0-0.5FHolmes County Joel Pomerene Memorial HospitalPlatelet mean volume Auto (Bld) [Entitic vol]Ordered By: Sebas Jalloh on 16-85-7266Wdqfahwy mean volume (Bld) [Entitic vol]8.2 fL6.6-10.1 [facility] YoungstownPlatelets Auto (Bld) [#/Vol]Ordered By: Sebas Jalloh on 10-97-1469Csflqqjvm (Bld) [#/Vol]246 10*3/pR035-006FdiezzxqqSelect Medical Specialty Hospital - YoungstownRBC Auto (Bld) [#/Vol]Ordered By: Sebas Jalloh on 30-66-0966XXL (Bld) [#/Vol]4.34 10*6/uL3.90-5.60[facility] YoungstownWBC Auto (Bld) [#/Vol]Ordered By: Sebas Jalloh on 61-42-8975MDF (Bld) [#/Vol]8.0 10*3/uL 4.1-10.5FHolmes County Joel Pomerene Memorial Hospital Vital Signs Date TimeVital SignValuePerforming QfwhtsurzLryicpfs53-39-8849 09:48-0400Heart rate75 /minEloisa Hassan [facility]04-16-2025 09:48-9669MtP8% (BldA) [Mass fraction]97 %Eloisa Hassan [facility]04-16-2025 09:48-0400Blood Pressure LocationMomisty Hassan [facility]04-16-2025 09:48-0400 Respiratory rate20 /minEloisa Hassan [facility]04-16-2025 09:48-0400Body lgjsijhjqst40.34 [degF]Eloisa Hassan [facility]04-16-2025 09:47-0400 Diastolic blood oujxlyxq51 mm[Hg]Eloisa Hassan [facility]04-16-2025 09:47-0400Mean blood jnqorbal03 mm[Hg]Eloisa Hassan [facility]04-16-2025 09:47-0400 Systolic blood sqdlwijt986 mm[Hg]Eloisa Hassan [facility]02-20-2025 10:11-0500Blood Pressure LocationJENNIFER NANDO [facility]02-20-2025 10:11-0500Body hhrjhdxvhix33.6 [degF]SWETHA COLLIER [facility]02-20-2025 10:11-0500Diastolic blood nvutcfoi26 mm[Hg]SWETHA COLLIER [facility]02-20-2025 10:11-0500Heart rate56 /minJENNIFER NANDO [facility]02-20-2025 10:11-0500Respiratory rate16 /minJENNIFER NANDO [facility]02-20-2025 10:11-0500Systolic blood yclmwdjw02 mm[Hg]SWETHA COLLIER [facility]02-14-2025 11:15-0500Diastolic blood nvgqofyw12 mm[Hg]Pooja Steelm [facility]02-14-2025 11:15-0500Mean blood shsigqpc00 mm[Hg]Basosiris [place] [facility]02-14-2025 11:15-0500 Systolic blood tvjhiejd26 mm[Hg]Bashar [place] [facility]02-14-2025 11:00-0500 Diastolic blood bextifmi11 mm[Hg]Bashar [place] [facility]02-14-2025 11:00-0500Heart rate78 /Luli Stephens [facility]02-14-2025 11:00-9570BvR2% (BldA) [Mass fraction]98 %Pooja Stephens [facility]02-14-2025 11:00-0500 Systolic blood isbirwwv49 mm[Hg]Pooja Stephens [facility]02-14-2025 09:33-0500Blood Pressure LocationMohamad Mouchli [phone]-DlbnjL[facility]02-14-2025 09:33-0500Diastolic blood mm[Hg]Manavd Mouchli [phone]-JvwwlL[facility] Hospital02-14-2025 09:33-0500Heart rate86 /minMohamad Mouchli [phone]-BosnlL[facility] Hospital02-14-2025 09:33-0500Respiratory rate14 /minMohamad Mouchli [phone]-XgyiaLancaster Municipal Hospital02-14-2025 09:33-0500Systolic blood vqzifynm34 mm[Hg]Nazaninamad Mouchli [phone]-PqrxtLancaster [facility] Hospital02-05-2025 16:00-0500Diastolic blood mm[Hg][facility] 05-23-2024 16:00-0500Heart rate92 /[facility] 05-23-2024 16:00-0500Respiratory rate16 /[facility] 05-23-2024 16:00-9336HxR5% (BldA) [Mass fraction]93 %[facility]02-05-2025 16:00-0500Systolic blood trmcckjy689 mm[Hg][facility]02-05-2025 10:56-0500Body mpepirrhaki91.8 [degF][facility]02-05-2025 10:53-0500Body uxedtw454.72 cmSelect Medical Specialty Hospital - [facility]02-05-2025 10:53-0500Body qawxcr13.23 kgSelect Medical Specialty Hospital [facility]01-27-2025 14:32-0500Hourly RoundingWilliam Paster [facility]01-27-2025 14:32-0500 Promise to ReturnWilliam Paster [address] [place], [place] [id number] 13:00-0500 Hourly RoundingWilliam Paster [address] [place], [place] 1586001-27-2025 13:00-0500 Promise to ReturnWilliam Paster [address] [place], [place] 1586001-27-2025 12:00-0500 Hourly RoundingWilliam Paster [address] [place], [place] 1586001-27-2025 12:00-0500 Promise to ReturnWilliam Paster [facility]01-27-2025 11:00-0500Blood Pressure LocationWilliam Paster [address] [place], [place] 1586001-27-2025 11:00-0500 Diastolic blood wzasryzi00 mm[Hg]Pan Paster [facility]01-27-2025 11:00-0500Heart rate98 /minWilliam Paster [facility]01-27-2025 11:00-0500 Respiratory rate18 /minWilliam Paster [facility]01-27-2025 11:00-5436TwU5% (BldA) [Mass fraction]92 %Pan Paster [address] [place], [place] 1586001-27-2025 11:00-0500 Systolic blood dxygdatj839 mm[Hg]Pan Paster [address]01-27-2025 08:00-0500Body bdzimhlpirn09.24 [degF]Pan Paster [address] [place], [place] [address]01-27-2025 08:00-0500Heart rate92 /minWilliam Paster [address] [place], [place] [address]01-27-2025 08:00-5397SyT8% (BldA) [Mass fraction]90 %Pan Paster [address] [place], [place] 0574301-27-2025 08:00-0500 Systolic blood ymghfahz300 mm[Hg]Pan Paster [address] [place], [place] 0574301-27-2025 06:15-0500Heart rate90 /minWilliam Paster [address] [place], [place] 0574301-27-2025 06:14-0500 Diastolic blood hfanfyqn29 mm[Hg]Pan Paster [address] [place], [place] 0574301-27-2025 06:14-0500Mean blood zovcbcrj80 mm[Hg]Pan Paster [address] [place], [place] 0574301-27-2025 06:14-0500 Systolic blood mqzexsag674 mm[Hg]Pan Paster [address] [place], [place] 4607001-27-2025 06:13-0500Body jaodcfoselx80.34 [degF]Pan Paster [address] [place], [place] 0574301-27-2025 06:00-0500 Respiratory rate16 /minWilliam Paster [address] [place], [place] 0574301-27-2025 05:25-0500Body jjkiuctvxco52.7 [degF]Pan Paster [address] [place], [place] 0574301-27-2025 05:25-0500Heart rate99 /minWilliam Paster [facility]01-27-2025 05:25-0500Mean blood xvsbgvza11 mm[Hg]Pan Paster [address] [place], [place] 0574301-27-2025 01:40-0500Body wlawxzxugjf14.7 [degF]Pan Paster [address] [place], [place] 0574301-27-2025 01:40-0500Heart rate94 /minWilliam Paster [address] [place], [place] 0574301-27-2025 01:40-0500Mean blood sujcqesm96 mm[Hg]Pan Paster [address] [place], [place] 0574301-26-2025 21:19-0500Mean blood mm[Hg]Pan Paster [address] [place], [place] 0574301-26-2025 21:18-0500Body anmqkfdxijl71.88 [degF]Pan Paster [address] [place], [place] 0574301-26-2025 16:58-0500Mean blood mm[Hg]Pan Paster [address] [place], [place] 0574301-26-2025 05:10-0500Mean blood cxdhemkc90 mm[Hg]Pan Paster [address] [place], [place] [address]574301-25-2025 06:10-0500 Respiratory rate16 /minWilliam Paster [address] [place], [place] 0574301-25-2025 00:10-0500 Respiratory rate16 /minWilliam Paster [address] [place], [place] 0574301-24-2025 13:55-0500Body .7 [degF]Pan Paster [address] [place], [place] 1586001-24-2025 13:55-0500 Respiratory rate18 /minWilliam Paster [facility]01-24-2025 13:30-0500Body zpyhxepugxu16.24 [degF]Pan Paster [facility]01-24-2025 12:44-0500Body xkgycrqecfm61.24 [degF]Pan Paster [facility]01-24-2025 00:29-0500Heart rate86 /minWilldebrazhen Paster [facility]01-19-2025 11:08-7295YgO0% (BldA) [Mass fraction]81.1 %Pan Paster [facility] [id number] 15:48-0500Heart rate89 /min Mohamapanchito Mouchli [facility]01-16-2025 15:48-9599NhN8% (BldA) [Mass fraction]90 %Mohamad Mouchli [facility]01-16-2025 15:47-0500 Respiratory rate18 /minMohamad Mouchli [address] [place], [place] 4911701-16-2025 15:47-0500Blood Pressure LocationMohamad Mouchli [facility]01-16-2025 15:47-0500 Diastolic blood vvnwfheq89 mm[Hg]Mohamad Mouchli [facility]01-16-2025 15:47-0500Mean blood sbfuxcii29 mm[Hg]Mohamad Mouchli [address] [place], [place] 4911701-16-2025 15:47-0500 Systolic blood gbpwmoua351 mm[Hg]Mohamad Mouchli [address] [place], [place] 4911701-16-2025 13:41-0500Heart rate96 /minMohamad Mouchli [address] [place], [place] 8823101-16-2025 13:41-1737RiJ8% (BldA) [Mass fraction]91 %Mohamad Mouchli [address] [place], [place] 8823101-16-2025 13:39-0500Body vtbqedmqbsb34.6 [degF]Mohparvind Mouchli [address] [place], [place] 8823101-16-2025 13:39-0500 Diastolic blood lhnyjxcg59 mm[Hg]Mohamad Mouchli [address]01-16-2025 13:39-0500Mean blood jdxhosqo80 mm[Hg]Mohamad Mouchli [address] [place], [place] 2942601-16-2025 13:39-0500 Systolic blood dajklyyg10 mm[Hg]Eloisa Ryanuchli [address] [place], [place] 8823101-14-2025 10:12-0500Blood Pressure LocationMohamad Mouchli [phone]-Adbsw[address] [place], [place] 2861901-14-2025 10:12-0500Diastolic blood qffquzad84 mm[Hg]Nazaninamad Mouchli [phone]-Hfclf[address] [place], [place] 2861901-14-2025 10:12-0500Heart rate76 /minMohamad Mouchli [phone]-Ztzok[address] [place], [place] 2861901-14-2025 10:12-0500Systolic blood hviyxido999 mm[Hg]Mohamad Mouchli 274-2516Lmtlhd-Ouwlh[address] [place], [place] 2861912-16-2024 13:36-0500Diastolic blood kvyxglrl77 mm[Hg]Nazaninamad Mouchli [phone]-Qihtm[address] [place], [place] 2861912-16-2024 13:36-0500Heart rate67 /minMohamad Mouchli [phone]-UjtziL[facility]aster [facility]12-16-2024 13:36-0500Systolic blood aynulwiz32 mm[Hg]Eloisa Hassan [phone]-ZtxurLancaster Municipal Hospital12-16-2024 13:34-0500Blood Pressure LocationEloisa Hassan [phone]-Athko[address] [place], [place] 4125412-16-2024 13:34-0500Respiratory rate16 /minEloisa Wilcoxli [phone]-DusomLancaster Municipal Hospital12-12-2024 15:30-0500Diastolic blood nhjwirxm82 mm[Hg][facility]12-12-2024 15:30-0500Heart rate79 /min[facility]12-12-2024 15:30-0500Mean blood wmmatbrk30 mm[Hg][facility]12-12-2024 15:30-0500Respiratory rate18 /min[facility]12-12-2024 15:30-4700KfZ1% (BldA) [Mass fraction]95 %[facility]12-12-2024 15:30-0500Systolic blood ktvwrkwu180 mm[Hg][facility]12-12-2024 14:29-0500Body ssvgrblohdd01.52 [degF][facility]12-12-2024 14:29-0500Diastolic blood vrxwuzbh03 mm[Hg][facility]12-12-2024 14:29-0500Heart rate86 /minOhio[facility]12-12-2024 14:29-0500Respiratory rate18 /min[facility]12-12-2024 14:29-8317InY8% (BldA) [Mass fraction]95 %[facility]12-12-2024 14:29-0500 Systolic blood urcuhnsj851 mm[Hg][facility] 03-21-2024 14:23-0500Blood Pressure LocationMohamad Mouchli [phone]-Kwhqu[address] [place], [place] 2861912-04-2024 14:23-0500Diastolic blood rcowfehl04 mm[Hg]Mohamad Mouchli [phone]-Wunni[address] [place], [place] 2861912-04-2024 14:23-0500Heart rate65 /minMohamad Mouchli [phone]-Pbhvy[address] [place], [place] 2861912-04-2024 14:23-0500Respiratory rate16 /minMohamad Mouchli [phone]-Znmkh[address] [place], [place] 2861912-04-2024 14:23-0500Systolic blood oqkarumw110 mm[Hg]Manavd Mouchli [phone]-Ecuof[address] [place], [place] 2861903-15-2023 12:11-0400Diastolic blood mm[Hg]MD Donato Robin Work Phone: [facility]03-15-2023 12:11-0400 Heart rate71 /minMD Donato Robin Work Phone: [phone]03-15-2023 12:11-0400 Respiratory rate18 /minMD Donato Robin Work Phone: [facility]03-15-2023 12:11-0400 SaO2% (BldA) [Mass fraction]97 %MD Donato Robin Work Phone: [facility]03-15-2023 12:11-0400 Systolic blood vptpptwa152 mm[Hg]MD Donato Robin Work Phone: [facility]03-15-2023 10:57-0400 Body elddgg979.26 cmMD Donato Robin Work Phone: [facility]03-15-2023 10:57-0400 Body uvglmp51.03 kgMD Donato Robin Work Phone: [facility]02-27-2023 10:30-0500 Body iznure240.26 cmCameron Ditty Other [facility] Other 02-27-2023 10:30-0500Body mass index (BMI) [Ratio] 22.15 kg/g4Teujiww Ditty Other [facility] Other 02-27-2023 10:30-0500Body .04 kgCameron Ditty Other [facility] Other 02-27-2023 10:30-0500Diastolic blood ulefnhoa21 mm[Hg] Sebas Ditty Other [facility] Other 02-27-2023 10:30-0500Systolic blood cwtiqtqm427 mm[Hg] Sebas Ditty Other [facility] Other 11-02-2021 10:45-0400Body lpzxko135.26 cmCameron Ditty Other [facility] Other 11-02-2021 10:45-0400Body mass index (BMI) [Ratio] 21.85 kg/g9Vwjafey Ditty Other [facility] Other 11-02-2021 10:45-0400Body .13 kgCameron Ditty Other [facility] Other Encounters Encounter DateEncounter TypeCare ProviderFacilityStart: 18-45-7992gtueaovzxfZEG ZEKE A LEHMANNFacility:[facility] evueStart: 82-81-4460fkmlrtbeimOMN ZEKE A LEHMANNFacility:[facility] [facility] BellevueStart: 02-19-2025 End: 65-09-7006imediiuwmlEDSLMedina Hospitaltart: 24-51-0872jceobcusglNIVKLThe Surgical Hospital at Southwoodstart: 23-62-1196Phlltpbzg for preprocedural cardiovascular examinationProMedica Defiance Regional Hospitaltart: 01-08-2025 End: 67-93-1055bqxpqdsienIFDDVan Wert County Hospitaltart: 01-02-2025 End: 98-74-2752ftqfmwfnjjCviohcp A. MouchliFacility:[facility] Hospitaltart: 01-02-2025 End: 12-49-9071Jhgtuna encounter procedureEloisa Hassan [phone]-RutcxS[facility] Start: 01-02-2025 End: 89-71-8099dgotwdtjkrWSV ZEKE A LEHMANNFacility:[facility] [employer] [facility] BellevueStart: 77-83-3312pvgnhybiwxXvepdr E. RossFacility:[facility] [employer] [facility] tart: 12-31-2024 ambulatoryBLAIR GRBUniVan Wert County Hospitaltart: 12-20-2024 End: 37-70-1285ydxvjjixfaQuhtrf X OrzechFacility: ueStart: 12-20-2024 End: 81-96-8893Sajhnbo encounter procedureAurora X Orzech [facility] Hospitalue start: 00-71-1180emrhnphriuPFKQMarymount Hospitaltart: 57-97-1402lhjgqslbpyKENAMarymount Hospitaltart: 11-27-2024 End: 18-94-9638rcphjawsyuFHHJVan Wert County Hospitaltart: 63-89-0039jojwuczyecKOM ZEKE TRANFacility:CD:[id number]: 11-26-2024 End: 55-39-4717vpbgadubiaUTQ SHELLY A LEHMANNFacility:FT [facility] Medical CenterevueStart: 37-48-3134grzvnrncpuIzcrop E. RossFacility:[facility] [facility] BellevueStart: 11-14-2024 ambulatoryBLAIR GRUBBUniVan Wert County Hospitaltart: 10-16-2024 End: 36-51-2350yyuwokwvcnSospaab A. MouchliFacility:Irma DHStart: 10-16-2024 End: 02-98-3448Ajpmyyd encounter procedureEloisa Hassan [phone]-NnbbrSheltering Arms Hospital [facility] Start: 10-08-2024 End: 30-60-6702avvrqibpojXCZJGI MOUKARBELSycamore Medical Center Start: 08-05-8575psfpexclhbNazzazr A. MouchliFacility:Irma DHStart: 48-39-6556uhfqzbfkufPQNKVan Wert County Hospitaltart: 09-26-2024 End: 19-64-2167knjzrxbnjkREGMMarymount Hospitaltart: 08-30-2024 End: 90-81-1292hcymnlzaiiLwvufy E. RossFacility:[facility] HospitalueStart: 08-07-2024 End: 14-17-6705fpzykispotCQIQMarymount Hospitaltart: 08-01-2024 End: 42-77-7628jjrvavttlcOabixbl A. MouchliFacility:[facility]tart: 08-01-2024 End: 27-42-9393Buuebjj encounter procedureEloisa Hassan [facility] Start: 07-11-2024 End: 87-14-7172oawoiccgzxSscpum X SalemFacility:FTMCStart: 07-11-2024 End: 42-59-8830Zczjini encounter procedurePooja Stephens [facility] Start: 07-06-2024 End: 69-57-1900ettudkiovaNcugemk A. MouchliFacility:FTMCStart: 07-05-2024 End: 80-70-2719rnitsagodrBpxdwuh A. MouchliFacility:FTMCStart: 07-05-2024 End: 45-77-2424Yqzsuao encounter procedureMohamad A. Mouchli [facility] Start: 07-05-2024 End: 85-09-8455hyutsouumuBjyhalj A. MouchliFacility:[facility] DHStart: 87-58-9876zattspgzvuJlrnbg OrzechFacility:EU ueStart: 06-07-2024 End: 55-14-5247qwflqgwtdgLU-C SWETHA Azevedo PERRYFacility:EU ueStart: 06-07-2024 End: 80-79-8068Foosnwz encounter procedureJENNIFER E NANDO [facility] Marcela start: 06-01-2024 End: 83-10-7962cztqnalxmdRqzqgdp A. MouchliFacility:[facility] DHStart: 06-01-2024 End: 18-36-8870Ptktfed encounter procedureMohamad A. Mouchli [phone]-WdbgtSheltering Arms Hospital [facility] Start: 05-28-2024 End: 07-31-2680tfirzkezkeQKWRYS MOUKARBELSycamore Medical Center Start: 05-24-2024 End: 66-53-0427qmdanzgcpeTvkjkj E. RossFacility:[facility] CenterevueStart: 05-23-2024 End: 05-22-6447Newbvjqqs department patient visitPromedica Memorial Hospital[facility] Work Phone: Start: 05-15-2024 End: 31-27-1262tudgnbexsmGqgoez E. RossFacility:CD:[id number]: 05-06-2024 End: 10-75-3984Yiklykxdce and management of inpatientNahumiam Mary. Luzr Facility:[facility]tart: 68-72-9995Sojkbrmed department patient visitVicente Flanagan Facility:[facility]tart: 05-06-2024 End: 41-44-8888Forlsxmltj and management of inpatientRyanm Mary. Luzr [facility] Start: 05-03-2024 End: 03-47-8888ktnmrmmqsbRyqsild A. MouchliFacility:[facility]tart: 05-03-2024 End: 26-52-7872Odpcmjc encounter procedureMomisty A. Eveliouchli [facility] Start: 05-01-2024 End: 94-65-2514jyzxpimeuzFocvles A. MouchliFacility:[facility] DHStart: 05-01-2024 End: 98-93-2732Ghklfrh encounter procedureMohamad A. Mouchli [phone]-YvrxySheltering Arms Hospital [facility] Start: 04-04-2024 End: 22-29-5300nmsuwyphykWjjnkfe A. MouchliFacility:[facility]tart: 04-04-2024 End: 88-34-4314Snc Drop offMonikhilad Fatimah. Brendenli [facility] Start: 04-02-2024 End: 76-80-8970qbrtrwuxuhKrebrvd A. MouchliFacility:RikaHernan DHStart: 04-02-2024 End: 66-48-1826Gaejasx encounter procedureMomisty Hassan [facility] Start: 03-29-2024 End: 74-40-8155Njnafbaqg department patient visitAstrit H [facility] Start: 03-28-2024 End: 59-95-9199imfyhbnpbtIdlcjzv A. MouchliFacility:FTMEMORIAL MEDICAL CENTERtart: 03-21-2024 End: 60-47-1536lzmccdobjpHhhbsh E. RossFacility:RikaClinton DHStart: 03-21-2024 End: 30-19-8109Jjaymgu encounter procedureEloisa Hassan [phone]-RjuueSheltering Arms Hospital [facility] Start: 76-61-4386nrrbkjmhpcElsmiy RossFacility:Rika [facility] Centertart: 03-01-2024 End: 06-43-0891lldelsodnqOubxwd E. RossFacility:FT BellevueStart: 02-28-2024 End: 87-48-2065adhcflomzhCUBR [facility] Hospitaltart: 02-27-2024 End: 64-04-1840rvjcnvkqioHpfkam E. RossFacility:FT BellevueStart: 02-20-2024 End: 86-83-6351Hqq Drop Heydi Gar [facility] Start: 02-20-2024 End: 87-13-1562onsqsiikgnWmqoch E. RossFacility:FT BellevueStart: 02-17-2024 ambulatorySamujaylyn Azevedo. RossFacility:FT BellevueStart: 09-06-2023 End: 45-99-8431vvjftwhqvbJleedz Nhung RossFacility:FT BellevueStart: 07-18-2023 End: 19-09-4838mpnxtukgsuDJN Cary Martins SchwabFacility:FT BellevueStart: 07-11-2023 End: 96-71-6191czrhyfevatTlrlhp Roberto Carlos. RossFacility:FT BellevueStart: 03-01-2023 End: 27-88-6631Bsi Drop Heydi Gar [facility] Start: 10-26-2022 End: 37-06-3136hbrapkrbreSeqdweh Ditty Other [facility] Other Start: 97-13-2775Obyljotpc encounterCameron DittyFPG GastroenterologyStart: 10-14-2022 End: 95-68-4890yygtllfsdbOhygsmc Ditty Other [facility] Other Start: 08-81-5979Qevwskohy encounterCameron DittyFPG GastroenterologyStart: 08-16-2022 End: 65-85-6468uswqdqyuliXKTFTI H FAWWADFacility:Y6Epvtx: 07-20-2022 End: 84-49-5024uvppygxcldQPRTSY MOUKARBELFacility:E5Oxjoc: 07-19-2022 End: 77-78-2996gijkprxcdxUDERMR H FAWWADFacility:A4Ompgq: 42-66-4122Sxtluvcij encounterCameron DittyFPG GastroenterologyStart: 06-30-2022 End: 11-04-9539Bqzlwwrfz to same day surgery centerMD Donato Robin Work Phone: [facility] Work Phone: Start: 06-30-2022 End: 22-72-0324vzhzvagtsdGB Kim E Knight Work Phone: [facility] Work Phone: Start: 06-25-2022 End: 00-84-9005gvjnkucuxuUrnbdol Ditty Other [employer] Other Start: 87-89-0134Ozbqgzxae encounterCameron DittyFPG GastroenterologyStart: 06-16-2022 End: 71-09-5996yhgxohyusdHDNRXF H FAWWADFacility:D6Lnzyr: 06-14-2022 End: 94-39-0487feeijhfxxiXbeuyxb Ditty Other [employer] Other Start: 17-11-0490Ldbfamu encounter procedureCameron DittyFPG GastroenterologyStart: 05-19-2022 End: 40-60-9330uxslwnhdgnZDDHBA H FAWWADFacility:A3Uqtdu: 04-19-2022 End: 76-93-0416hzlaztvbtoKG KIM E KNIGHT .Facility:F7Htokf: 03-18-2022 End: 61-49-3196cemawggycdLO KIM E KNIGHT .Facility:F5Ufnnl: 02-16-2022 End: 84-72-1456kymdjfniheSG KIM E KNIGHT .Facility:O2Pzgkf: 02-15-2022 End: 33-59-5764hvifkhbnfnRflqeew Ditty Other [employer] Other Start: 48-55-0042Jvrsfkcpy encounterCameron DittyFPG GastroenterologyStart: 01-17-2022 End: 09-96-2553pfkmdpubxfVD KIM E KNIGHT .Facility:P6Tdkeo: 12-17-2021 End: 86-41-3418gsatqaizokSK KIM E KNIGHT .Facility:E7Jxmra: 11-16-2021 End: 67-26-4856qqwzcbovaiPL DONATO ROBIN .Facility:V9Fdldg: 10-16-2021 End: 89-99-3404sshkmojtjzPASQBR H FAWWADFacility:M0Ayvat: 08-10-2021 End: 38-28-0181wzavtusaccIajuthf Ditty Other [facility] Other Start: 50-95-2946Sspxcyerm encounterCameron DittyFPG GastroenterologyStart: 04-14-2021 End: 17-98-2998ywtwsbuwfiScownjk Ditty Other [employer] Other Start: 57-68-9083Ltffsdjnq encounterCameron DittyFPG GastroenterologyStart: 04-13-2021 End: 27-69-8788tlwyxbvxvkWekwjju Ditty Other [employer] Other Start: 17-94-2067Phdrdueac encounterCameron DittyFPG GastroenterologyStart: 02-17-2021 End: 22-46-3554aqsjyfkqfkHnrjtjj Ditty Other [employer] Other Start: 47-28-8151Mmyahhe encounter procedureCameron DittyFPG GastroenterologyStart: 07-17-2018 End: 61-45-1043Hvqezzi encounter procedureZULY ABADFacility:[facility]ENTERtart: 08-23-2017 End: 29-19-8066Nakxjum encounter Dallin ABADFacility:[facility] Procedures DateProcedureProcedure DetailPerforming ClinicianStart: 86-63-1661Iszsb chest X-rayStart: 29-95-0224Mjpgkupcwapj abnormal (finding)Pan Gar Comment on above:LLL BAL and washingsStart: 03-28-2024 EsophagogastroduodenoscopyAstrit HajdariStart: 57-13-8724Wbssvunq fiberoptic sigmoidoscopyAstrit HajdariStart: 01-20-4786MypcoyvzxfsXW Kim Knight Work Phone: Cardiac catheter (physical object)Pete Gar Comment on above:July 2012Carotid endarterectomyPete Gar Comment on above:July 2012ColonoscopyPete Gar Comment on above:2013 and 2020History of placement of stent for coronary artery diseaseHx of heart artery stentSasha Gar Plan of Treatment DateCare ActivityDetailAuthorStart: 73-13-6070CtghdgqyaSelect [facility] aPTT in Platelet poor plasma by Coagulation assaySelect Medical Specialty Hospital - YoungstownINR in Platelet poor plasma by Coagulation assaySelect Medical Specialty Hospital - YoungstownPatient EducationPromedica F[facility] Work Phone: Patient referralPromedica Fostoria Community Hospital [facility]tr Work Phone: Immunizations Immunization DateImmunizationNotesCare DvgnyrxyOjtxxymz06-06-1502zltgaigod, high dose seasonal, preservative-freePete Gar 231-4019Mhpviz-PbnzxCleveland [facility]12-26-2021 influenza virus vaccine, unspecified formulationSasha Gar [phone]-KgnbwC[facility] Clinic [facility]12-26-2021 pneumococcal polysaccharide vaccine, 23 valentSasha Gar [phone]-UqtnuCleveland Clinic [facility]04-22-2021COVID-19 mRNA Comirlexis (Pfizer)MD Donato Robin Work Phone: [facility]04-02-2021COVID-19 mRNAEdis (Pfizer)MD Donato Robin Work Phone: [facility]11-05-2019influenza virus vaccine, unspecified formulationSasha Gar 280-1363Qxuhaz-JulzaCleveland Clinic [facility]10-21-2019 pneumococcal conjugate vaccine, 13 Apple Gar [phone]-YoldsChristus [facility] Payers DatePayer CategoryPayerPolicy [id number] Health Insurance [id number] of Defense ( and others)[id number] [id number] [id number] [id number] of Defense ( and others)[id number] [id number] 1960Self-pay [id number] [id number] 2.0.1.106126.3.57[id number] 2.0.1.549077.3.57[id number] 2.0.1.683060.3.579.2.17592-87-7465Cwsuker7303777 2.840.1.268739.3.579.2.30469-50-0564Lqqiocn1799116 2.840.1.518513.3.579.2.88415-01-0805Hwpqjzh1192279 2.16840.1.027653.3.57[id number] 2.16840.1.613519.3.579.[id number] 2.16.840.1.650507.3.579.2.10785-63-9184Lugjsks7834925 2.16.840.1.012307.3.579.[id number] 2.16.840.1.810591.3.579.[id number] 2.16.840.1.049949.3.579.[id number] 2.16.840.1.546314.3.579.2.7[id number] 2.16840.1.515931.3.579.2.23709-66-7878Mtqfgwq0104575 2.16840.1.549116.3.579.2.29206-47-0393Tqtfpmt2120763 2.16840.1.329211.3.579.2.88362-30-4282Eitdfzg85212604 2.16840.1.313265.3.579.[id number] 2.16840.1.738659.3.579.2.73359-28-5528Hqpcylu33450037 2.16840.1.629182.3.579.2.[id number] 2.16840.1.270735.3.579.2.45632-27-2460Ynbujws37961267 2.16840.1.514772.3.579.2.15067-73-8385Urpwwrq18531181 2.16840.1.225860.3.579.2.06937-00-6353Fmeglnj27962117 2.16840.1.652889.3.579.2.31685-09-7832Msxtyxf66270606 2.16840.1.245138.3.579.2.16490-90-4968Zappvsr96155596 2.16840.1.265358.3.579.2.08817-59-6720Cbvysbk94837646 2.16840.1.156019.3.579.2.68482-26-2594Dydlbzi13044155 2.840.1.769563.3.579.2.25472-99-6643Msbnecl68108419 2..1.264486.3.579.2.89386-36-2446Ygofcri93754822 2.0.1.010643.3.579.2.61528-81-5114Ljbcojj06898798 2.840.1.441744.3.579.2.86503-90-0680Qpzsnih65785190 2.840.1.136278.3.579.2.13717-12-5563Rnizsgx04796529 2.0.1.536248.3.579.2.43269-66-4715Djdvfcf73442346 2.840.1.266992.3.579.2.96033-25-6892Bpjnlgs27741529 2.840.1.150345.3.579.2.30264-75-4279Opqbgyv56347224 2.16840.1.732834.3.579.2.35660-76-9893Lqgdjjh51421770 2.16840.1.575602.3.579.2.33586-04-0968Cjgmydn52857701 2.16.840.1.874065.3.579.2.08388-09-4112Vupxfse83761152 2.16.840.1.429194.3.579.2.13260-61-1145Cnsszph90452202 2.16840.1.471244.3.579.2.38255-42-8155Jtiirai04264006 2.16840.1.005215.3.579.2.42701-10-5482Ngmxfzg81883022 2.16840.1.081984.3.579.2.25486-14-3164Cvkanan77676537 2.16840.1.236002.3.579.2.99062-14-0496Vbrltfi98688939 2.840.1.824953.3.579.2.28358-27-7282Vufvthx74852320 2.16840.1.247522.3.579.2.02559-53-6194Yduvmiq12867747 2.840.1.389186.3.579.2.29828-33-5144Kczclps70592130 2.0.1.496382.3.579.2.52437-71-7391Vhghvpx12138175 2.840.1.075410.3.579.2.81204-20-0068Aznxckn42812355 2.16840.1.422965.3.579.2.23387-47-4935Wbauitv07177677 2.16840.1.946084.3.579.2.84581-84-2004Tilrbud43699012 2.16840.1.478633.3.579.2.60882-39-9709Kjywcwu28145059 2.16840.1.095970.3.579.2.35158-89-5181Rfcgdrw82521813 2.16840.1.356399.3.579.2.50743-71-4811Ewbbgmg95849067 2.16840.1.344653.3.579.2.92306-89-2624Lpcxvsd64215174 2.840.1.048528.3.579.2.61678-29-6726Ijnwnbs65423106 2.0.1.220120.3.579.2.56204-60-3756Kzetjwi16519289 2.840.1.946415.3.579.2.87737-79-2030Yyxwpaq24033484 2.840.1.847891.3.579.2.56153-71-5618Essoumk84090295 2.0.1.851026.3.579.2.04293-55-5456Mimshan46185968 2.0.1.218401.3.579.2.91455-32-6089Qgpzcoq35255449 2.840.1.028700.3.579.2.24462-05-9628Rplolij26893814 2.840.1.498369.3.579.2.20775-53-9269Qbtppuz02902648 2.840.1.696437.3.579.2.14560-97-9606Qpdyvxz18871816 2.840.1.7981[id number] [id number] 2.840.1.323050.3.579.2.531 Social History DateTypeDetailFacilitySex Assigned At [facility] End: 56-84-7696Iiqyljo smoking status NHISEx-smoker (finding)[facility]quit tart: 29-55-1053Atu [facility] End: 92-18-0751Hklfoaa smoking statusNever smoked tobacco (finding)[facility]patient reports that he used to smoke. quit in 1989.Tobacco smoking statusNeverC[facility] Comment on above:patient reports that he used to smoke. quit in 1989.Start: 88-86-5338YgcRsrb (finding)[facility] Goals DatePatient GoalDesired Activity/Ipufy49-08-8786 Functional Status InonYwcsbsemfeRnivtpUgfxezjs09-82-5027Kznrqxygrp StatusN/AExecutive [facility]25Functional StatusN/[facility] Hdluoq57-33-4319Yisoguvfln StatusN/[facility]01-19-2025[facility] Functional StatusN/[facility] [id number] Functional StatusN/[facility] [id number] Functional StatusN/[facility]12-04-2024Functional StatusN/A [facility] Clinical Notes 02-17-2021 to 01-08-2025 Note Date & [id number] NoteUT Electrophysiology Consult Note [place] [facility] Reason for visit: VT 01/08/25 Patient is here today for a follow up Sotalol loading dose. Patient states he feels about the same. Patient denies SOB, BRITTON, chest pain, leg swelling, heart racing/palpitations. Patient complains of fatigue, dizziness/lightheadedness/loss of balance with position changes, bruising/bleeding/discoloration. Patient is noticeably taking both Coreg and sotalol. Device later today reveals less than 1% PVC burden with BiV pacing being 99%. Review of Systems Constitutional: Positive for malaise/fatigue. Neurological: Positive for dizziness, light-headedness and loss of balance. Device data: 11/27/24 Pt underwent left septal pacing and has had episodes of VT on his device, ATP x 1 and ICD shock x 2. He felt these but no LOC. HPI: Bennie Dennis is a 79 y.o. [...] stent. Most recently he was admitted to [facility] from 05/06/2024 to 05/14/2024 with hypoxic respiratory [...] / REPLACE / REMOVE PACEMAKER SH: Social Drivers of Health Tobacco Use: Medium Risk (01/08/2025) Patient History Smoking Tobacco Use: Former Smokeless Tobacco Use: Never Passive Exposure: Not on file Alcohol Use: Not on file Financial Resource Strain: Not on file Food Insecurity: Not on file Transportation Needs: Not on file Physical Activity: Not on file Stress: Not on file Social Connections: Not on file Intimate Partner Violence: Unknown (06/09/2023) [place] Safety & Environment Fear of Current or Ex-Partner: Not on file Emotionally Abused: Not on file Physically Abused: Not on file Sexually Abused: Not on file Physically or Sexually Abused: Not on file Depression: Not on file Housing Stability: Not on file Utilities: Not on file Health Literacy: Not on file Allergies: No Known Allergies Weight: 59.9kg Visit Vitals BP 126/65 (BP Location: Right arm, Patient Position: Sitting) Pulse 60 Ht 1.727 m (5' 8 ) Wt 59.9 kg (132 lb) SpO2 97% BMI 20.07 kg/m??? Smoking Status Former BSA 1.7 m??? Meds: Current Outpatient Medications on File Prior to Visit Medication Sig Dispense Refill aspirin 81 mg EC tablet in the morning. atorvastatin (Lipitor) 80 mg tablet Take 80 mg by mouth at bedtime. obeticholic acid (Ocaliva) 5 mg tablet Take 5 mg by mouth in the morning. warfarin (Coumadin) 4 mg tablet warfarin 4 mg tablet 90 tablet 1 balsalazide (Colazal) 750 mg capsule balsalazide 750 mg capsule TAKE 3 CAPSULES BY MOUTH TWICE DAILY (Patient not taking: Reported on 01/08/2025) carvedilol (Coreg) 12.5 mg tablet TAKE 1 TABLET WITH BREAKFAST AND EVENING MEAL 180 tablet 3 carvedilol (Coreg) 3.125 mg tablet Take 1 tablet (3.125 mg) by mouth with breakfast and with evening meal. (In addition to 6.25mg tablets=9.375mg twice daily) 180 tablet 3 carvedilol (Coreg) 6.25 mg tablet Take 1 tablet (6.25 mg) by mouth with breakfast and with evening meal. In addition to 3.125mg tablets=9.375mg twice daily) 180 tablet 3 cholecalciferol (Vitamin D3) 25 MCG (1000 units) tablet Take by mouth in the morning. Creon 36,000-114,000- 180,000 unit capsule,delayed release(DR/EC) capsule Take 1 capsule by mouth. Daily-Cira, with folic acid, 400 mcg tablet Take 1 tablet by mouth in the morning. mesalamine (Lialda) 1.2 gram EC tablet Take by mouth in the morning. (Patient not taking: Reported on 11/27/2024) mirtazapine (Remeron Alisha-Tab) 15 mg disintegrating tablet Take 15 mg by mouth at bedtime. (Patient not taking: Reported on 11/27/2024) omega-3 (Fish OiL) 60-90-500 mg capsule Take by mouth in the morning. (Patient not taking: Reported on 11/27/2024) omeprazole (PriLOSEC) [address]eanne (more content not included)...[facility]09-17-2025 NotePatient Education Nutrition Dyslipidemia Dyslipidemia is an imbalance of waxy, fat-like substances (lipids) in the blood. The body needs lipids in small amounts. Dyslipidemia often involves a high level of cholesterol or triglycerides, which are types of lipids. Common forms of dyslipidemia include: ??? High levels of LDL cholesterol. LDL is the type of cholesterol that causes fatty deposits (plaques) to build up in the blood vessels that carry blood away from the heart (arteries). ??? Low levels of HDL cholesterol. HDL cholesterol is the type of cholesterol that protects againstheart disease. High levels of HDL remove the LDL buildup from arteries. ??? High levels of triglycerides. Triglycerides are a fatty substance in the blood that is linked to a buildup of plaques in the arteries. What are the causes? There are two main types of dyslipidemia: primary and secondary. Primary dyslipidemia is caused by changes (mutations) in genes that are passed down through families (inherited). These mutations cause several types of dyslipidemia. Secondary dyslipidemia may be caused by various risk factors that can lead to the disease, such as lifestyle choices and certain medical conditions. What increases the risk? You are more likely to develop this condition if you are an older man or if you are a woman who hasgone through menopause. Other risk factors include: ??? Having a family history of dyslipidemia. ??? Taking certain medicines, including control pills, steroids, some diuretics, and beta-blockers. ??? Eating a diet high in saturated fat. ??? Smoking cigarettes or excessive alcohol intake. ??? Having certain medical conditions such as diabetes, polycystic ovary syndrome (PCOS), kidney disease, liver disease, or hypothyroidism. ??? Not exercising regularly. ??? Being overweight or obese with too much belly fat. What are the signs or symptoms? In most cases, dyslipidemia does not usually cause any symptoms. In severe cases, very high lipid levels can cause: ??? Fatty bumps under the skin (xanthomas). ??? A white or alonso ring around the black center (pupil) of the eye. Very high triglyceride levels can cause inflammation of the pancreas (pancreatitis). How is this diagnosed? Your health care provider may diagnose dyslipidemia based on a routine blood test (fasting blood test). Because most people do not have symptoms of the condition, this blood testing (lipid profile) is done on adults age 20 and older and is repeated every 4-6 years. This test checks: ??? Total cholesterol. This measures the total amount of cholesterol in your blood, including LDL cholesterol, HDL cholesterol, and triglycerides. A healthy number is below 200 mg/dL (5.17 mmol/L). ??? LDL cholesterol. The target number for LDL cholesterol is different for each person, depending on individual risk factors. A healthy number is usually below 100 mg/dL (2.59 mmol/L). Ask your health care provider what your LDL cholesterol should be. ??? HDL cholesterol. An HDL level of 60 mg/dL (1.55 mmol/L) or higher is best because it helps to protect against heart disease. A number below 40 mg/dL (1.03 mmol/L) for men or below 50 mg/dL (1.29 mmol/L) for women increases the risk for heart disease. ??? Triglycerides. A healthy triglyceride number is below 150 mg/dL (1.69 mmol/L). If your lipid profile is abnormal, your health care provider may do other blood tests. How is this treated? Treatment depends on the type of dyslipidemia that you have and your other risk factors for heart disease and stroke. Your health care provider will have a target range for your lipid levels based onthis information. Treatment for dyslipidemia starts with lifestyle changes, such as diet and exercise. Your health care provider may recommend that you: ??? Get regular exercise. ??? Make changes to your diet. ??? Quit smoking if you smoke. ??? Limit your alcohol intake. If diet changes and exercise do not help you reach your goals, your health care provider may also prescribe medicine to lower lipids. The most commonly prescribed type of medicine lowers your LDL cholesterol (statin drug). If you have a high triglyceride level, your provider may prescribe another type of drug (fibrate) or an omega-3 fish oil supplement, or both. Follow these instructions at home: Eating and drinking ??? Follow instructions from your health care provider or dietitian about eating or drinking restrictions. ??? Eat a healthy diet as told by your health care provider. This can help you reach and maintain ahealthy weight, lower your LDL cholesterol, and raise your HDL cholesterol. This may include: ? Limiting your calories, if you are overweight. ? Eating more fruits, vegetables, whole grains, fish, and lean meats. ? Limiting saturated fat, trans fat, and cholesterol. ??? Do not drink alcohol if: ? Your health care provider tells y (more content not included)...[facility]09-04-2025 Hospital Discharge instructions Patient Education 12/20/2024 09:12:47 Benign Prostatic Hyperplasia Benign Prostatic Hyperplasia Benign prostatic hyperplasia (BPH) is an enlarged prostate gland that is caused by the normal agingprocess. The prostate may get bigger as a man gets older. The condition is not caused by cancer. The prostate is a walnut-sized gland that is involved in the production of semen. It is located in front of the rectum and below the bladder. The bladder stores urine. The urethra carries stored urine ou t of the body. An enlarged prostate can press on the urethra. This can make it harder to pass urine. The buildup of urine in the bladder can cause infection. Back pressure and infection may progress to bladder damage and kidney (renal) failure. What are the causes? This condition is part of the normal aging process. However, not all men develop problems from thiscondition. If the prostate enlarges away from the [...] urethra. Follow these instructions at home: Take pfxj-lkm-rjomxga and prescription medicines only as told by [...] provider. Document Revised: 10/21/2021 Document Reviewed: 10/21/2021 Status Overload Patient Education 2023 [employer] 12/20/2024 09:12:46 Acute Urinary Retention, Male Acute Urinary Retention, Male Acute urinary retention is a condition in which a person is unable to pass urine or can only pass alittle urine. This condition can happen suddenly and last for a short time. If left untreated, it can become long-term (chronic) and result in kidney damage or other serious complications. What are the causes? This condition may be caused by: Obstruction or narrowing of the tube that drains the bladder (urethra). This may be caused by surgery, problems with nearby organs, or injury to the bladder or urethra. Problems with the nerves in the bladder. Tumors in the area of the pelvis, bladder, or urethra. Certain medicines. Bladder or urinary tract infection. Constipation. What increases the risk? This condition is more likely to develop in older men. As men age, their prostate may become largerand may start to press or squeeze on the bladder or the urethra. Other chronic health conditions can increase the risk of acute urinary retention. These include: Diseases such as multiple sclerosis. Spinal cord injuries. Diabetes. Degenerative cognitive conditions, such as delirium or dementia. Psychological conditions. A man may hold his urine due to trauma or because he does not want to usethe bathroom. What are the signs or symptoms? Symptoms of this condition include: Trouble urinating. Pain in the lower abdomen. How is this diagnosed? This condition is diagnosed based on a physical exam and your medical history. You may also have other tests, including: An ultrasound of the bladder or kidneys or both. Blood tests. A urine analysis. Additional tests may be needed, such as a CT scan, MRI, and kidney or bladder function tests. How is this treated? Treatment for this condition may include: Medicines. Placing a thin, sterile tube (catheter) into the bladder to drain urine out of the body. This is called an indwelling urinary catheter. After it is inserted, the catheter is held in place with a small balloon that is filled with sterile water. Urine drains from the catheter into a collection bag outside of the body. Behavioral therapy. Treatment for other conditions. If needed, you may be treated in the hospital for kidney function problems or to manage other complications. Follow these instructions at home: Medicines Take mzkx-oet-ijnyigf and prescription medicines only as told by your health care provider. Avoid certain medicines, such as decongestants, antihistamines, and some prescription medicines. Do not take any medicine unless your health care provider approves. If you were prescribed an antibiotic medicine, take it as told by your health care provider. Do notstop using the antibiotic even if you start to feel better. General instructions Do not use any products that contain nicotine or tobacco. These products include cigarettes, chewing tobacco, and vaping devices, such as e-cigarettes. If you need help quitting, ask your health careprovider. Drink enough fluid to keep your urine pale yellow. If you have an indwelling urinary catheter, follow the instructions from your health care provider. Monitor any changes in your symptoms. Tell your health care provider about any changes. If instructed, monitor your blood pressure at home. Report changes as told by your health care provider. Keep all follow-up visits. This is important. Contact a health care provider if: You have uncomfortable bladder contractions that you cannot control (spasms). You leak urine with the spasms. Get help right away if: You have chills or a fever. You have blood in your urine. You have a catheter and the following happens: ?Your catheter stops draining urine. ?Your catheter falls out. Summary Acute urinary retention is a condition in which a person is unable to pass urine or can only pass alittle urine. If left untreated, this condition can result in kidney damage or other serious complications. An enlarged prostate may cause this condition. As men age, their prostate gland may become larger and may press or squeeze on the bladder or the urethra. Treatment for this condition may include medicines and placement of an indwelling urinary catheter. Monitor any changes in your symptoms. Tell your health care provider about any changes. This information is not intended to replace advice given to you by your health care provider. Make sure you discuss any questions you have with your health care provider. Document Revised: 12/24/2020 Document Reviewed: 12/24/2020 Status Overload Patient Education 2023 [employer] 12/20/2024 09:12:43 Acute Urinary Retention, Male, Crmm-ix-Xild Acute Urinary Retention, Male Acute urinary retention is when a person cannot pee (urinate) at all, or can only pee a little. This can come on all of a sudden. If it is not treated, it can lead to kidney problems or other seriousproblems. What are the causes? A problem with the tube that drains the bladder (urethra). Problems with the nerves in the bladder. Tumors. Certain medicines. An infection. Having trouble pooping (constipation). What increases the risk? Older men are more at risk because their prostate gland may become larger as they age. Other conditions also can increase risk. These include: Diseases, such as multiple sclerosis. Injury to the spinal cord. Diabetes. A condition that affects the way the brain works, such as dementia. Holding back urine due to trauma or because you do not want to use the bathroom. What are the signs or symptoms? Trouble peeing. Pain in the lower belly. How is this treated? Treatment for this condition may include: Medicines. Placing a thin, germ-free tube (catheter) into the bladder to drain pee out of the body. Therapy to treat mental health conditions. Treatment for conditions that may cause this. If needed, you may be treated in the hospital for kidney problems or to manage other problems. Follow these instructions at home: Medicines Take qdqa-ukc-zlwoscn and prescription medicines only as told by your doctor. Ask your doctor what medicines you should stay away from. If you were given an antibiotic medicine, take it as told by your doctor. Do not stop taking it, even if you start to feel better. General instructions Do not smoke or use any products that contain nicotine or tobacco. If you need help quitting, ask your doctor. Drink enough fluid to keep your pee pale yellow. If you were sent home with a tube that drains the bladder, take care of it as told by your doctor. Watch for changes in your symptoms. Tell your doctor about them. If told, keep track of changes in your blood pressure at home. Tell your doctor about them. Keep all follow-up visits. Contact a doctor if: You have spasms in your bladder that you cannot stop. You leak pee when you have spasms. Get help right away if: You have chills or a fever. You have blood in your pee. You have a tube that drains pee from the bladder and these things happen: ?The tube stops draining pee. ?The tube falls out. Summary Acute urinary retention is when you cannot pee at all or you pee too little. If this condition is not treated, it can lead to kidney problems or other serious problems. If you were sent home with a tube (catheter) that drains the bladder, take care of it as told by your doctor. Watch for changes in your symptoms. Tell your doctor about them. This information is not intended to replace advice given to you by your health care provider. Make sure you discuss any questions you have with your health care provider. Document Revised: 12/24/2020 Document Reviewed: 12/24/2020 [employer] Patient Education 2023 [employer] Follow Up Care 06/07/2024 11:06:12 With:NED Peres APRN, [facility], FAM, URL Address: When: only if needed [facility] Marcela 09-04-2025 NotePatient Education Urology Benign Prostatic Hyperplasia Benign prostatic hyperplasia (BPH) is an enlarged prostate gland that is caused by the normal agingprocess. The prostate may get bigger as a man gets older. The condition is not caused by cancer. The prostate is a walnut-sized gland that is involved in the production of semen. It is located in front of the rectum and below the bladder. The bladder stores urine. The urethra carries stored urine ou t of the body. An enlarged prostate can press on the urethra. This can make it harder to pass urine. The buildup of urine in the bladder can cause infection. Back pressure and infection may progress to bladder damage and kidney (renal) failure. What are the causes? This condition is part of the normal aging process. However, not all men develop problems from thiscondition. If the prostate enlarges away from the [...] this procedure, a tool is inserted through theopening at the tip of the penis (urethra). [...] procedure uses radio frequencies to destroy and removea small amount of prostate tissue. ? Interstitial laser coagulation (ILC). This procedure uses a laser to destroy and remove a small amount of prostate tissue. ? Transurethral electrovaporization (TUVP). This procedure uses electrodes to destroy and remove a small amount of prostate tissue. ? Prostatic urethral lift. This procedure inserts an implant to push the lobes of the prostate awayfrom the urethra. Follow these instructions at home: ??? Take fxjg-irf-oztzeny and prescription medicines only as told by [...] symptoms do not get (more content not included)...[facility]08-12-2025 NoteUT Electrophysiology Consult Note [place] [facility] Reason for visit: VT 11/27/24 Pt underwent left septal pacing and has had episodes of VT on his device, ATP x 1 and ICD shock x 2. He felt these but no LOC. HPI: Bennie Dennis is a 79 y.o. [...] stent. Most recently he was admitted to [facility] from 05/06/2024 to 05/14/2024 with hypoxic respiratory [...] / REPLACE / REMOVE PACEMAKER SH: Social Drivers of Health Tobacco Use: Medium Risk (10/08/2024) Patient History Smoking Tobacco Use: Former Smokeless Tobacco Use: Unknown Passive Exposure: Not on file Alcohol Use: Not on file Financial Resource Strain: Not on file Food Insecurity: Not on file Transportation Needs: Not on file Physical Activity: Not on file Stress: Not on file Social Connections: Not on file Intimate Partner Violence: Unknown (06/09/2023) [place] Safety & Environment Fear of Current or Ex-Partner: Not on file Emotionally Abused: Not on file Physically Abused: Not on file Sexually Abused: Not on file Physically or Sexually Abused: Not on file Depression: Not on file Housing Stability: Not on file Utilities: Not on file Health Literacy: Not on file Allergies: No Known Allergies Weight: No weight available Visit Vitals Smoking Status Former Meds: Current Outpatient Medications on File Prior to Visit Medication Sig Dispense Refill aspirin 81 mg EC tablet in the morning. atorvastatin (Lipitor) 80 mg tablet Take 80 mg by mouth at bedtime. balsalazide (Colazal) 750 mg capsule balsalazide 750 mg capsule TAKE 3 CAPSULES BY MOUTH TWICE DAILY (Patient not taking: Reported on 11/27/2024) carvedilol (Coreg) 12.5 mg tablet Take 1 tablet (12.5 mg) by mouth with breakfast and with evening meal. (Patient not taking: Reported on 11/27/2024) 180 tablet 3 carvedilol (Coreg) 3.125 mg tablet Take 1 tablet (3.125 mg) by mouth with breakfast and with evening meal. (In addition to 6.25mg tablets=9.375mg twice daily) 180 tablet 3 carvedilol (Coreg) 6.25 mg tablet Take 1 tablet (6.25 mg) by mouth with breakfast and with evening meal. In addition to 3.125mg tablets=9.375mg twice daily) 180 tablet 3 cholecalciferol (Vitamin D3) 25 MCG (1000 units) tablet Take by mouth in the morning. Creon 36,000-114,000- 180,000 unit capsule,delayed release(DR/EC) capsule Take 1 capsule by mouth. Daily-Cira, with folic acid, 400 mcg tablet Take 1 tablet by mouth in the morning. mesalamine (Lialda) 1.2 gram EC tablet Take by mouth in the morning. (Patient not taking: Reported on 11/27/2024) mirtazapine (Remeron Alisha-Tab) 15 mg disintegrating tablet Take 15 mg by mouth at bedtime. (Patient not taking: Reported on 11/27/2024) obeticholic acid (Ocaliva) 5 mg tablet Take 5 mg by mouth in the morning. omega-3 (Fish OiL) 60-90-500 mg capsule Take by mouth in the morning. (Patient not taking: Reported on 11/27/2024) omeprazole (PriLOSEC) [address] capsule Take 1 capsule by mouth in the morning. sacubitriL-valsartan (Entresto) 24-26 mg tablet every 12 (twelve) hours. spironolactone (Aldactone) 25 mg tablet TAKE ONE-HALF (1/2) TABLET DAILY 45 tablet 3 tamsulosin (Flomax) 0.4 mg 24 hr capsule Take 0.4 mg by mouth in the morning. (Patient not taking: Reported on 11/27/2024) warfarin (Coumadin) 4 mg tablet warfarin 4 mg tablet 90 tablet 1 [DISCONTINUED] spironolactone (Aldactone) 25 mg tablet TAKE ONE-HALF (1/2) TABLET DAILY 45 tablet 3 No current facility-administered medications on file prior to visit. ROS: Review of Systems Musculoskeletal: Positive for muscle weakness. Genitourinary: Positive for hematuria and incomplete emptying. Neurological: Positive for focal weakness and (more content not included)... [facility]06-23-2025 NoteUT Cardiology - [facility] Subjective Bennie Dennis is a 79 y.o. year old male patient being seen for for wound check. Patient denies, chills, body aches or fever. Patient complains of a 5 out of 10 pain at surgical site Patient Active Problem List Diagnosis Atrial fibrillation (CMS/HCC) Pericardial effusion Systolic heart failure (CMS/HCC) History of cardiovascular disorder Chronic ischemic heart disease Acute myocardial infarction of anterior wall (CMS/HCC) Coronary arteriosclerosis in [place] artery History of cardioembolic stroke AICD (automatic cardioverter/defibrillator) present Nonsustained ventricular tachycardia (CMS/HCC) Acute ill-defined cerebrovascular disease Adhesive capsulitis of shoulder DDD (degenerative disc disease), lumbar Hemiparesis (CMS/HCC) Hx of arterial ischemic stroke Hx of heart artery stent Prostate disorder Ulcerative colitis (CMS/HCC) Acute kidney failure, unspecified Acute respiratory failure with hypoxia (CMS/HCC) Anemia, unspecified Benign prostatic hyperplasia without lower urinary tract symptoms Blood in stool BMI 22.0-22.9, adult Chronic anticoagulation Other [place] [facility] (current) drug therapy Cognitive communication deficit Dehydration [...] (CMS/HCC) Unspecified sequelae of cerebral infarction Weakness Feeling of incomplete bladder emptying Sepsis, unspecified organism (CMS/HCC) Urine retention Weight gain VT (ventricular tachycardia) (CMS/HCC) Other ventricular tachycardia (CMS/HCC) Family History Problem Relation Name Age of Onset Coronary artery disease Mother Coronary artery disease Brother Diabetes Brother Social History Tobacco Use Smoking status: Former Current packs/day: 0.00 Types: Cigarettes Start date: 1959 Quit date: 1989 Years since quittin.4 Substance Use Topics Alcohol use: Not Currently Drug use: Never HPI Bennie is seen in follow up on ischemic cardiomyopathy, LV aneurysm and stroke. He is s/p stenting of the LAD 07/03/2012. He is s/p ICD placement 08/29/2012. He is on anticoagulation with coumadin. I had raised his INR target to 2.5-3.5 due to excessive spontaneous echocontrast in the ventricle. [facility] follows his INR levels. However on follow up and due to ulcerative colitis and occasional lower GI bleeding, I had asked anticoagulation clinic to reduced the target INR to 2.5 - 3.0. He has not had bleeding since then. Plavix is stopped since June 2013 given 1 year post stent. he was admitted to [facility] from 05/06/2024 to 05/14/2024 with hypoxic respiratory failure and shock with hypotension he had pneumonia and pleural effusion on the right and acute kidney injury. He was treated with intravenous fluids, steroids, required Levophed for hypotension as well as antibiotics. He was also thought to have a reaction to Stelara and this was stopped. in August 07, 2024 he was evaluated by Dr. Moi Reyes due to low ejection fraction and left bundle branch block and he decided to upgrade him to a BiV ICD. He had received an ICD shock from ventricular tachycardia. He underwent the upgrade procedure on 09/26/2024. Today's visit is mainly for device incision wound check. Of note and due to low blood pressure I had recently reduced carvedilol to 9.375 mg twice daily. Review of Systems Cardiovascular: Negative for chest pain, dyspnea on exertion and leg swelling. Objective Visit Vitals BP 111/66 (BP Location: Right arm, Patient Position: Sitting) Pulse 73 Ht 1.676 m (5' 6 ) Wt 59 kg (130 lb) SpO2 97% BMI 20.98 kg/m??? Smoking Status Former BSA 1.66 m??? Physical Exam Constitutional: Appearance: He is [...] murmur heard. No friction rub. No gallop. Comments: the pacemaker site was undressed and the incision is clean with no erythema. There is no hematoma. A sterile dressing was applied to be removed in f (more content not included)...[facility]06-11-2025 NoteBiV: SEPTAL LEAD- ICD UPGRADE PROCEDURE NOTE DATE OF PROCEDURE: 09/26/2024 PERFORMING PHYSICIAN: Dr. Moi Reyes CONSENT: Patient LOCATION: EP Lab PROCEDURE PERFORMED: 1. Implantation of septal lead for COAL CRUSHER OPERATOR(Biotronik) 2. RV septogram 3. Ultrasound guided venous access INDICATIONS: 1. Ischemic cardiomyopathy 2. LBBB 3. Chronic SHF NYHA Class III PROCEDURAL SEDATION: Versed and Fentanyl. Moderate sedation was administered by the sedation nurse under my supervision and noted in the CVL log. Intraprocedural face to face sedation time: 81min. Monitoring: Cardiac telemetry, Blood pressure, continuous pulse oxymetry. FLUOROSCOPY: 6.3min/ 33mGray EBL: 15cc SPECIMEN REMOVED: None PROCEDURAL DETAILS: Patient was brought to the EP lab in the post absorptive state. A procedural pause was performed identifying the patient, the procedure to be performed and the site of implant. The left chest was prepped and draped in the usual sterile fashion. Preoperative antibiotics IV Ancef was administered. Ultrasound was used to assess the patency of left axillary vein. Once it was determined that the vein was patient, I decided to proceed with opening of the pocket. Local infiltration of 1% Lidocaine was performed and an incision was created in the left upper chest. Dissection was then performed using cautery down to the fascia over the muscle. Left axillary venous access was obtained under ultrasound guidance on three occasions using seldinger technique using a 5 Spanish micropunture needle and wires for 6/ 9 Spanish Safe sheath as well as a Diane sheath for CS access were placed as noted below for lead placement. I created a small pocket which was large enough for the device to sit. Our initial thought process was to place the CS lead, but however given that the RV ICD lead was placed in the apex the possibility of giving a good COAL CRUSHER OPERATOR response with a narrow QRS was limited. Also there was significant scarring at the left brachiocephalic and right IJ junction which proved very difficult for wire manipulation. Although I managed to place a Glidewire as well as another 034 wire, there was difficulty in advancing sheaths. So I opted to proceed with septal pacing. A Selectra III 65 cm sheath was advanced over the wire into the RV. The wire was manipulated to advance into the RV mid septum. Thereafter the sheath was advanced and following this a Biotronik pacing lead was advanced till septum was approach and thereafter a pacing configuration revealed lower septal capture. At this point I advanced the lead into the septum giving full sheath support. During this process I noted that the QRS was narrow with a measurement of 95 ms. A septal gram confirmed the fact that the lead was adequately placed into the septum. Thereafter the sheath was split and following which a 9 Spanish sheath was also split. At this time I noted that there was fascicular capture noted in high voltage pacing with loss of fascicular capture and a wider QRS of 124 ms seen and lower voltage. The lead was secured with two 1-0 silk sutures. The old RV lead and RA lead was taken and connected to a new Biotronik COAL CRUSHER OPERATOR-D device. Pocket hemostasis was secured and it was then copiously and vigorously irrigated with antibiotic solution. The leads were wrapped under the device and the device was placed in the pocket and the device tacked to the underlying muscle. The pocket was closed in layers: subcutaneous layer using 2-0 Vicryl and skin using 3-0 Biosyn (absorbable monofilament) and glue applied. Dressing was placed on top. Lead parameters were then rechecked through the device as noted below. The patient was returned to the room for post procedural observation. No immediate procedural complications were noted. Following this I checked multiple EKG configurations and programmed the device at LV first with the 100 ms offset to avoid RV apical pacing. QRS with this approached 134 ms. POST PROCEDURE EXAM: Patient was hemodynamically stable. COMPLICATIONS: None. IMPRESSION: 1. Successful Biventricular/septal lead- ICD implantation with excellent pacing and sensing parameters. RECOMMENDATIONS: 1. Dressing to be removed after 3 weeks. 2. Do not wet the incision for 7 days 3. No lifting heavy weights using arm on the same side. 4. Do not lift elbow above the shoulder on the same side for 4-6 weeks 5. No driving for 4 wks. 6. F/u in device clinic 2 week from discharge or sooner for any concerns Moi Reyes MD [facility] ElectrophysiologyUnUniversity [facility]06-11-[facility] Note Patient: Bennie Dennis Procedure Information Date/Time: 09/26/24 1130 Procedure: Biventricular ICD upgrade - [facility] Location: [facility] AMBULATORY NURSE 1 EP / [facility] VASCULAR LAB (Cath) Providers: Moi Reyes MD Clinical information reviewed: Allergies Meds Physical Exam Airway Mallampati: II TM distance: >3 FB Neck ROM: full Cardiovascular Dental Pulmonary Neurological Abdominal Anesthesia Plan ASA 3 CSE Anesthetic plan and risks discussed with patient. Use of blood products discussed with patient who. Additional Equipment RequestsUnUniversity Hospitals [facility]Point [facility] Center04-22-2025 Note [place] Electrophysiology Consult Note [place] Cardiology [facility] Reason for visit: HPI: Bennie Dennis [...] stent. Most recently he was admitted to [facility] from 05/06/2024 to 05/14/2024 with hypoxic respiratory [...] on file Intimate Partner Violence: Unknown (06/09/2023) [place] Safety & Environment Fear of Current or [...] emboli Peripheral Pulses Radia (more content not included)...[facility] 06-17-2024 Evaluation + Plan note Future Appointments Appointment Date:07/11/2024 03:00:00 PM Scheduled Provider: Location:.[facility] Appointment Type:CT Chest (FT) Appointment Date:07/11/2024 03:30:00 PM Scheduled Provider: [facility] Appoint[facility] Type:PUL Pulmonary Function Test (FT) Appointment Date:07/13/2024 11:00:00 AM Scheduled Provider:Pooja Stephens MD [facility] Type:Pulmonary Follow Up (FT) Appointment Date:08/30/2024 10:00:00 AM Scheduled Provider:Pete Gar MD Location:[facility] Appointment Type:FM Open Appointment Date:10/04/2024 10:15:00 AM Scheduled Provider:Eloisa Hassan MD Location:[facility] Appointment Type:BADH Follow Up Appointment Date:11/21/2024 11:00:00 AM Scheduled Provider: Location:[facility] Appointment Type: Medicare Wellness Subsequent Appointment Date:12/07/2024 09:40:00 AM Scheduled Provider:SWETHA COLLIER PA-C Location:[facility] Appointment Type:URO Office Visit Future Scheduled Tests Radiology* CT Chest w/o High Resolution 07/11/24 * XR Chest 2 Views 06/11/[address] [facility] 02-22-2025 NoteMicrobiology PROCEDURE: Fungus Culture [R1] SOURCE: Bronch Wash [...] Locations R1: This test was performed at: [facility], [address] [place] [address], [id number] [place] [address], KaqcfdCrystal Clinic Orthopedic CenterComment on above:Performed By: #### [id number] #### [address] [id number] NoteMicrobiology PROCEDURE: Fungus Culture [R1] SOURCE: Bronch Wash [...] Locations R1: This test was performed at: [facility], [address] [place] [address], [id number] [place] [address], NrmnuvCrystal Clinic Orthopedic CenterComment on above:Performed By: #### [id number] ####[address] [id number] NoteMicrobiology PROCEDURE: Fungus Culture [R1] SOURCE: Bronch Wash [...] Locations R1: This test was performed at: [facility], [address] [place] [address], [id number], VgeyqbCrystal Clinic Orthopedic CenterComment on above:Performed By: #### [id number] #### [facility] [address] [place] [address] [id number] NoteMicrobiology PROCEDURE: Fungus Culture [R1] SOURCE: Bronch Wash [...] Locations R1: This [facility] was performed at: [facility], [address] [place] [address], [id number], MmllmeCrystal Clinic Orthopedic CenterComment on above:Performed By: #### [id number] #### [facility] [address] [place] [address] [id number] Hospital Discharge instructions Patient Education 06/07/2024 15:13:06 Benign Prostatic Hyperplasia Benign Prostatic Hyperplasia Benign prostatic hyperplasia (BPH) is an enlarged prostate gland that is caused by the normal agingprocess. The prostate may get bigger as a man gets older. The condition is not caused by cancer. The prostate is a walnut-sized gland that is involved in the production of semen. It is located in front of the rectum and below the bladder. The bladder stores urine. The urethra carries stored urine ou t of the body. An enlarged prostate can press on the urethra. This can make it harder to pass urine. The buildup of urine in the bladder can cause infection. Back pressure and infection may progress to bladder damage and kidney (renal) failure. What are the causes? This condition is part of the normal aging process. However, not all men develop problems from thiscondition. If the prostate enlarges away from the [...] urethra. Follow these instructions at home: Take twhs-yjl-eeibrzq and prescription medicines only as told by [...] provider. Document Revised: 10/21/2021 Document Reviewed: 10/21/2021 Status Overload Patient Education 2023 [employer] Follow Up Care 05/16/2024 10:43:24 With:NANDO KAY, SWETHA Azevedo, URL Address: [address] [place] [address] When:Within 6 Month(s) [facility] 02-20-2025 NotePatient Education Urology Benign Prostatic Hyperplasia Benign prostatic hyperplasia (BPH) is an enlarged prostate gland that is caused by the normal agingprocess. The prostate may get bigger as a man gets older. The condition is not caused by cancer. The prostate is a walnut-sized gland that is involved in the production of semen. It is located in front of the rectum and below the bladder. The bladder stores urine. The urethra carries stored urine ou t of the body. An enlarged prostate can press on the urethra. This can make it harder to pass urine. The buildup of urine in the bladder can cause infection. Back pressure and infection may progress to bladder damage and kidney (renal) failure. What are the causes? This condition is part of the normal aging process. However, not all men develop problems from thiscondition. If the prostate enlarges away from the [...] this procedure, a tool is inserted through theopening at the tip of the penis (urethra). [...] procedure uses radio frequencies to destroy and removea small amount of prostate tissue. ? Interstitial laser coagulation (ILC). This procedure uses a laser to destroy and remove a small amount of prostate tissue. ? Transurethral electrovaporization (TUVP). This procedure uses electrodes to destroy and remove a small amount of prostate tissue. ? Prostatic urethral lift. This procedure inserts an implant to push the lobes of the prostate awayfrom the urethra. Follow these instructions at home: ??? Take lkxs-yzf-dpvkypz and prescription medicines only as told by [...] symptoms do not get (more content not included)...[facility]02-10-2025 NoteUT Cardiology - [facility] Subjective Bennie Dennis is a 78 y.o. year old male patient being seen for follow up [facility]. Discharge summary from [facility] said to hold Entresto and spironolactone, but per SNF medication list he is still being given both meds. He had hematuria while inpatient he says. Denies chest pain, SOB, and palpitations. Patient Active Problem List Diagnosis Atrial fibrillation (CMS/HCC) Pericardial effusion Systolic heart failure (CMS/HCC) History of cardiovascular disorder Chronic ischemic heart disease Acute myocardial infarction of anterior wall (CMS/HCC) Coronary arteriosclerosis in [place] artery History of cardioembolic stroke AICD (automatic [...] stool BMI 22.0-22.9, adult Chronic anticoagulation Other [place] [facility] ([facility]) drug therapy Cognitive communication deficit Dehydration [...] to excessive spontaneous echocontrast in the ventricle. [facility] follows his INR levels. However on follow up and due to ulcerative colitis and occasional lower GI bleeding, I had asked anticoagulation clinic to reduced the target INR to 2.5 - 3.0. He has not had bleeding since then. Plavix is stopped since June 2013 given 1 year post stent. Most recently he was admitted to [facility] from 05/06/2024 to 05/14/2024 with hypoxic respiratory [...] little bit better. He is in a mcc recovering for the next few weeks. His [...] heard. No friction r (more content not included)...[facility] 05-14-2024 NoteProgress Note-Physician Assessment/Plan 1. Acute hypoxic respiratory [...] VTE ppx: Coumadin Ok to d/c from PCC perspective Recommend f/u w/ PCP on already [...] admitted to the ICU for further management. PCC consulted to assist in management of the [...] home oxygen [facility] pulmonary [facility] and to follow-up as outpatient [...] non-distended Extremities: No defor (more content not included)...[facility] Comment on above:Result Comment: Electronically Signed By: Angelo STEWART, Pooja Belcher\.br\Date and Time Signed: 05/14/24 19:20 [id number] Hospital Discharge instructions Patient Education 05/14/2024 13:51:53 [...] health care provider. Follow instructions from your healthcare provider about when and how to remove [...] Let your health care provider know that youare not able to remove the catheter. 10.Throw [...] provider. Document Revised: 06/24/2021 Document Reviewed: 03/20/2021 Status Overload Patient Education 2021 [employer] 05/14/2024 13:51:42 Acute Respiratory Failure, Adult Acute [...] in a hospital intensive care unit (ICU). Treatmentdepends on the cause of the condition. Treatment [...] Follow these instructions at home: Medicines Take gbqe-bte-czaolvc and prescription medicines only as told by [...] need help quitting, ask your health careprovider. Keep all follow-up visits. Contact a health [...] in a hospital intensive care unit (ICU). Treatmentmay include oxygen, fluids, and medicines. A machine [...] provider. Document Revised: 06/11/2022 Document Reviewed: 06/11/2022 Status Overload Patient Education 2023 [employer] Follow Up Care 05/06/2024 10:34:06 With:Linda Enrique Address:Unknown When: Unknown Comments:Dr. Enrique's office will call you for a follow up appointment. If you do not hear form them is a few days, then call for hospital followup appointment in regards to urinary retention /gill. Thank you. With:Eloisa Hassan Address: [address], [address] [place] [address] [phone] Business (1) When: Unknown Comments:Call for followup appointment 2 weeks. With:Pooja Stephens Address: [address] [place] [address] [phone] Business (1) When: Unknown Comments:Call for followup appointment 3 weeks With:Pete Gar Address: [address] [place] [address]- Business (2) When:05/24/2024 15:00:00 Comments:Keep scheduled appointment [facility] 01-27-2025 NoteDischarge Summary Admission and Discharge Information Admit Date/Time:05/06/2024 14:19 Admitting Physician - Pan Gar DO Consulting Physician - Duane Lund Jr., PA-C Admitting Diagnoses: Discharge Order Date Discharge Patient - Ordered -- 05/14/24 12:19:00 EST, NEEDS SEEN BY PULM AND NEBULIZER ADOBE DEVELOPER FIRST. Discharge Diagnoses 1. Acute hypoxic respiratory failure, 05/06/2024 2. Shock, 05/07/2024 3. Acute hypotension, 05/07/2024 4. PNA (pneumonia), 05/06/2024 5. Pleural effusion on right, 05/06/2024 6. Acute sinusitis, 05/06/2024 7. Anemia, 05/06/2024 8. Urinary retention with incomplete bladder emptying, 05/07/2024 9. Acute kidney injury, 05/06/2024 10. Diarrhea, 05/10/2024 11. Hypokalemia, 05/11/2024 12. CAD in [place] artery, 05/06/2024 13. Chronic systolic heart failure, [...] History Bronchoscopy abnormal (05/11/2024), Esophagogastroduodenoscopy (03/28/2024), Flexible sigmoidoscopy(03/28/2024), Cardiac catheter, Carotid endarterectomy, Colonoscopy. Hospital Course [...] gtt due to acute hypotension. Home meds wereheld at this time. Pt was treated also [...] require gill during hospitalization. Pt failed voiding trialsand will need to follow with urology as outpatient. Pt was to have bronch on 05/09 however did have supratherapeutic INR level and require vitamin k x 1dose. Bronch was held until Pt did have expected subtherapeutic INR levels following bronch and required Lovenox bridging once Coumadin was cleared to restart by pulm. Today INR is 1.95 and pt will discontinue Lovenox and starthome Coumadin dosing tonight. HH to draw INR [...] Tongue normal Neck: Trache (more content not included)...[facility] CenterComment on above:Result Comment: Electronically Signed By: Azucena CROWLEY\.br\Date and Time Signed: 05/14/24 15:39 EST\.br\Electronically Co- Signed By: Pan Gar DO\.br\Date and Time Co-Signed: 05/15/24 09:59 EST 05-14-2024 Evaluation + Plan noteExtracted from:Title:[facility] progress noteAuthor: Duane Lund Jr., PA-CDate:05/14/24 1. Acute hypoxic respiratory failure (J96.01: Acute [...] VTE ppx: Coumadin Ok to d/c from [facility] perspective Recommend f/u w/ PCP on already scheduled date of 05/24 for BAL results Recommend repeat CT chest in 3 months Addendum by Angelo STEWART, Pooja Belcher on May 14, 2024 19:17:42 EST I [...] imaging and PFT in 4-6 wks Extracted from:Title:Discharge NoteAuthor:Melissa CROWLEYeDate:05/14/24 Discharge To, Anticipated II - Home with [...] Oral, Daily With When Contact Information Pete Gar 05/24/2024 03:00 PM EST [address] [place] [address]- Business (2) Additional Instructions: Keep scheduled appointment Linda Enrique Additional Instructions: Dr. Enrique's office will call you for a follow up appointment. If you do not hear form them is a few days, then call for hospital followup appointment in regards to urinary retention /gill. Thank you. Eloisa Hassan [address] [place] [address] [phone] Business (1) Additional Instructions: Call for followup appointment 2 weeks. Pooja Stephens [address] [place] [address] [phone] Business (1) Additional Instructions: Call for followup appointment 3 weeks Indwelling Urinary Catheter Insertion, Care After Acute Respiratory Failure, Adult Addendum by Azucena CROWLEY on May 14, 2024 15:39:16 EST Pt was to have bronch on 05/09 however did have supratherapeutic INR level and require vitamin k x 1dose. Bronch was held until 05/11/24. Per pulm [...] chronic infiltrates from interstitial lung disease. Extracted from:Title:APSO NoteAuthor:Alex CROWLEYte:05/13/24 PLAN: 1. 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 possible drug rxn to [facility] [...] dehydration from poor po intake, pt. was cfwde2D IVF and unable to maintain MAP 65 [...] K/Mag prn -Trend labs 12. 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 follows cardio at [facility], s/p ADARSH -Asa, atorvastatin, -Hold carvedilol, entresto, spironolactone 13. Chronic systolic heart failure (I50.22: Chronic systolic (congestive) heart failure) Pt. follows cardio at [facility], s/p ADARSH -Asa, atorvastatin, -Hold carvedilol, entresto, [...] deep vein thrombosis (DVT) prophylaxis (Z79.899: Other 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 (current) drug therapy) -Warfarin, early ambulation -Plan discussed w/ patient, nursing staff and CRM. This report was transcribed using voice recognition software. Every effort was made to ensure accuracy, however, inadvertently computerized perfect bind machine operator mistakes may be present. Extracted from:Title:APSO NoteAuthor:Deniz MCGRATHGINI-BCSereneJamesDate:05/12/24 1. Acute hypoxic respiratory failure #2 bilateral [...] prior to discharge GI ppx: PPI Extracted from:Title:APSO NoteAuthor:MERLYN LUCIA, CharleneDate:05/12/24 1. 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 possible drug rxn to [facility] [...] dehydration from poor po intake, pt. was [id number] IVF and unable to maintain MAP 65 [...] K/Mag prn -Trend labs 12. 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 follows cardio at [facility], s/p ADARSH -Asa, atorvastatin, -Hold carvedilol, entresto, spironolactone 13. Chronic systolic heart failure (I50.22: Chronic systolic (congestive) heart failure) Pt. follows cardio at [facility], s/p ADARSH -Asa, atorvastatin, -Hold carvedilol, entresto, [...] deep vein thrombosis (DVT) prophylaxis (Z79.899: [facility] [place] [facility] (current) drug therapy) -Warfarin, early ambulation -Plan discussed w/ patient, nursing staff and CRM. This report was transcribed using voice recognition software. Every effort was made to ensure accuracy, however, inadvertently computerized perfect bind machine operator mistakes may be present. Orders: Oxygen Desaturation Study Extracted from:Title:APSO NoteAuthor:ORESTES AGACNP-BC, ReneeDate:05/11/24 1. 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 possible drug rxn to [facility], consider [...] (Sterlara) vs. adrenal insuff vs. possible sepsis -ruled out w/ neg. infectious w/u - abx [...] dehydration from poor po intake, pt. was [id number] IVF and unable to maintain MAP 65 [...] K/Mag prn -Trend labs 12. 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 follows cardio at [facility], s/p ADARSH -Asa, atorvastatin, -Hold carvedilol, entresto, spironolactone 13. Chronic systolic heart failure (I50.22: Chronic systolic (congestive) heart failure) Pt. follows cardio at [facility], s/p ADARSH -Asa, atorvastatin, -Hold carvedilol, entresto, [...] deep vein thrombosis (DVT) prophylaxis (Z79.899: Other 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 (current) drug therapy) -Warfarin, early ambulation Orders: enoxaparin, 60 mg = 0.6 mL, Injection, SubCutaneous, Once, Stop date 05/10/24 11:00:00 EST, Routine, Start date 05/10/24 11:00:00 EST, Per Cade WALSH given sub- theraputic INR today, 05/10/24 10:52:00 EST potassium chloride [...] made to ensure accuracy, however, inadvertently computerized perfect bind machine operator mistakes may be present. Extracted from:Title:PCCM progress noteAuthor:Kevon Duron PA-C, Duane CardonaDate: 05/10/24 1. Acute hypoxic respiratory failure (J96.01: Acute [...] GI ppx: PPI Orders: NPO Diet Extracted from:Title:APSO NoteAuthor:ORESTES AGACNP-BC, ReneeDate:05/10/24 1. 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 possible drug rxn to [facility], consider [...] Critical Care Ill/Injured Pt Initial 30-74 Min 20426 2. Shock (R57.9: Shock, unspecified) Suspect distributive [...] dehydration from poor po intake, pt. was msbhb0C IVF and unable to maintain MAP 65 [...] panel, Cdiff - pending 11. 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 follows cardio at [facility], s/p ADARSH -Asa, atorvastatin, -Hold carvedilol, entresto, spironolactone 12. Chronic systolic heart failure (I50.22: Chronic systolic (congestive) heart failure) Pt. follows cardio at [facility], s/p ADARSH -Asa, atorvastatin, -Hold carvedilol, entresto, [...] deep vein thrombosis (DVT) prophylaxis (Z79.899: [place] [facility] [place] drug therapy) -Warfarin, early ambulation Orders: Clostridium Difficile PCR Enteric Panel by PCR Legionella Antigen Urine Pulse Oximetry Continuous -Plan discussed w/ patient, nursing staff and CRM. This report was transcribed using voice recognition software. Every effort was made to ensure accuracy, however, inadvertently computerized perfect bind machine operator mistakes may be present. Addendum by Elizabeth METZGER on May 10, 2024 10:53:47 EST Per PCCM given subtherapeutic INR this a.m., give 1 dose of therapeutic lovenox, no further dosing as he is pending bronch in a.m. Extracted from:Title:Inpatient Consultation GastroenterologyAuthor:Debra STEWART, Eloisa CheungDate:05/09/24 Impression and Plan Education and Follow-up: Counseled. [...] calprotectin Patient to follow-up after discharge Extracted from:Title:APSO NoteAuthor:Melissa CROWLEYeDate:05/09/24 Awaiting cardio records w/ e cho from [facility] 1. Acute hypoxic respiratory failure (J96.01: Acute respiratory failure with hypoxia) 2/2 opportunistic infection vs possible drug reaction to Stelara. consider CATERING SALES MANAGER -Denies home 02, Cpap, Biapap use -> [...] dehydration from poor po intake, pt. was qelap1K IVF and unable to maintain MAP 65 [...] as outpatient IV vanco/zosyn given recurrent hypotension Pulm/District Gauger managing. 5. Pleural effusion on right (J90: [...] replace lytes as needed. 10. 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 follows cardio at [facility], s/p ADARSH -Asa, atorvastatin, -Hold carvedilol, Entresto, spironolactone Records from [facility] pending. 11. Chronic systolic heart failure (I50.22: [...] deep vein thrombosis (DVT) prophylaxis (Z79.899: [place] [facility] [place] drug therapy) -Warfarin, early ambulation -Plan [...] in medical decision making. Critical care dx./documentation: 1-13. This report was transcribed using voice recognition software. Every effort was made to ensure accuracy, however, inadvertently computerized perfect bind machine operator mistakes may be present. Extracted from:Title:APSO NoteAuthor:Ron CROWLEY:05/08/24 Awaiting cardio records w/ e cho from [facility] 1. Acute hypoxic respiratory failure (J96.01: Acute respiratory failure with hypoxia) 2/2 opportunistic infection vs possible drug reaction to Stelara. consider CATERING SALES MANAGER -Denies home 02, Cpap, Biapap use -> [...] is 35 mmHg. -Awaiting echo reports from [facility] for comparison Consult PCCM: defer mgt. 3. Acute hypotension (I95.9: Hypotension, unspecified) Initially thought related anti-hypertensive meds c/w dehydration from poor po intake, pt. was tfvfr2O IVF and unable to maintain MAP 65 [...] as outpatient IV vanco/zosyn given recurrent hypotension Pulm/District Gauger managing. 5. Pleural effusion on right (J90: [...] replace lytes as needed. 10. 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 follows cardio at [facility], s/p ADARSH -Asa, atorvastatin, -Hold carvedilol, entresto, spironolactone Records from [facility] pending. 11. Chronic systolic heart failure (I50.22: [...] deep vein thrombosis (DVT) prophylaxis (Z79.899: [place] [facility] [place] drug therapy) -Warfarin, early ambulation -Plan [...] in medical decision making. Critical care dx./documentation: 1-13. This report was transcribed using voice recognition software. Every effort was made to ensure accuracy, however, inadvertently computerized perfect bind machine operator mistakes may be present. Extracted from:Title:APSO NoteAuthor:ORESTES OGLESBY, ReneeDate:05/07/24 Awaiting cardio records w/ e cho from [facility] 1. Acute hypoxic respiratory failure (J96.01: Acute [...] Critical Care Ill/Injured Pt Initial 30-74 Min 35966 2. Shock (R57.9: Shock, unspecified) POA -Acute [...] is 35 mmHg. -Awaiting echo reports from [facility] for comparison Consult PCCM: defer mgt. -Plan apprec. 3. Acute hypotension (I95.9: Hypotension, unspecified) Initially thought related anti-hypertensive meds c/w dehydration from poor po intake, pt. was cssbl6V IVF and unable to maintain MAP 65 [...] nephrology: If Cr worsens 10. 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 follows cardio at [facility], s/p ADARSH -Asa, atorvastatin, -Hold carvedilol, entresto, [...] deep vein thrombosis (DVT) prophylaxis (Z79.899: [place] [facility] [place] drug therapy) -Warfarin, early ambulation Orders: [...] to Nursing Consult to Gastroenterology Cortisol COVID-19 ([facility]) Echo Transthoracic Complete eGFR Ferritin Flutter Valve Folate Level MRSA Screen Occupational Therapy Additional Tx Occupational Therapy Evaluate Patient, Develop a Plan of Care and Implement Plan Physical Therapy Additional Tx Physical Therapy Evaluate Patient, Develop a Plan of Care and Implement Plan PT PT & PTT Rapid COVID Antigen ([facility]) Respiratory Panel by PCR Stool Occult Blood [...] made to ensure accuracy, however, inadvertently computerized perfect bind machine operator mistakes may be present. Extracted from:Title:PCCM Consult NoteAuthor:Kevon Duron PA-C, Duane KattJamesDate: 05/07/24 1. Acute hypoxic respiratory failure (J96.01: Acute [...] billed separately is not included. Addendum by Myaa STEWART, Neela BolivarJames on May 07, 2024 23:46:54 EST I have seen and evaluated the patient with the physician fitter's assistant. His history, physical exam, assessment and [...] and is immunocompromised. Need to R/O opportunistic infectionsif not better with current ABx coverage. Critical care time was 32 minutes. Neela Trejo MD Extracted from:Title:ED NoteAuthor:Rima Anthony M.D. HDate:05/06/24 1. Acute hypoxic respiratory failure (J96.01: Acute respiratory failure with hypoxia) 2. Hypotension due to hypovolemia (E86.1: Hypovolemia) 3. PNA (pneumonia) (J18.9: Pneumonia, unspecified organism) 4. Pleural effusion on right (J90: Pleural effusion, not elsewhere classified) 5. Acute sinusitis (J01.90: Acute sinusitis, unspecified) 6. Anemia (D64.9: Anemia, unspecified) 7. Acute kidney injury (N17.9: Acute kidney failure, unspecified) 8. 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 Chronic [...] deep vein thrombosis (DVT) prophylaxis (Z79.899: [place] [facility] [place] drug therapy) Orders: azithromycin + Sodium Chloride 0.9% intravenous solution 250 mL, 500 mg = 1 EA, IV Piggyback, Dailyfor 1 dose(s), Stop date 05/08/24 8:59:00 EST, STAT, Start date 05/06/24 13:43:00 EST, 250 mL/hr, Infuse over 60 minute(s) ceftriaxone + Sodium Chloride 0.9% intravenous solution 50 mL, 1,000 mg = 1 EA, IV Piggyback, Once,Stop date 05/06/24 13:42:00 EST, STAT, Start date 05/06/24 13:42:00 EST, 100 mL/hr, Infuse over 30 minute(s), 05/06/24 13:42:00 EST Sodium Chloride 0.9% intravenous solution, 1,000 mL, IV, Stop date 05/06/24 13:38:00 EST, Start date 05/06/24 13:38:00 EST Sodium Chloride 0.9% intravenous solution, 1,000 mL, Soln-IV, IV, Once, Stop date 05/06/24 11:48:00EST, STAT, Start date 05/06/24 11:48:00 EST, Infuse [...] Cult Rflx XR Chest Single View Extracted from:Title:Admission H & PAuthor:[facility]STES [facility], ReneeDate:05/06/24 1. Acute hypoxic respiratory failure (J96.01: Acute [...] on 05/03 -> concern for adrenal insuff. 05/20 abrupt discont. of pred after approx. 1 [...] nephrology: If Cr worsens 8. 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 follows cardio at [facility] -Asa, atorvastatin, -Hold carvedilol, entresto, spironolactone 9. [...] deep vein thrombosis (DVT) prophylaxis (Z79.899: [facility] [place] [facility] [place] drug therapy) -Warfarin, early ambulation Orders: [...] Inhalation, QID, Routine, Start date 05/06/24 16:00:00 EST,05/06/24 14:34:00 EST ondansetron, 4 mg = 2 mL, Injection, IV Push, q6hr PRN Nausea, Routine, Start date 05/06/24 14:34:00 EST, 05/06/24 14:34:00 EST Patient Specific Meds, Creon, Normal Patient Dose, Each, Oral, As Directed, Routine, Start date 05/06/24 14:48:00 EST warfarin, Pharmacy to dose, Tab, Oral, As Directed for 100 day(s), Stop date 08/14/24 15:46:00 EDT,Routine, Start date 05/06/24 14:47:00 EST Ambulate with [...] Measures Precautions Pulse Oximetry Rapid COVID Antigen ([facility]) Respiratory Panel by PCR Resuscitation Status - [...] made to ensure accuracy, however, inadvertently computerized perfect bind machine operator mistakes may be present. Future Appointments Appointment Date:05/24/2024 03:00:00 PM Scheduled Provider:Pete Gar MD Location:[facility] Appointment Type: Hospital Follow Up w/TCM Appointment Date:07/05/2024 09:15:00 AM Scheduled Provider:Eloisa Hassan MD Location:[facility] Appointment Type:[facility] Follow Up Appointment Date:08/30/2024 10:00:00 AM Scheduled Provider:Pete Gar MD Location:[facility] Appointment Type: Open Appointment Date:11/21/2024 11:00:00 AM Scheduled Provider: Location:[facility] Appointment Type: Medicare Wellness Subsequent Diagnostic Tests Pending * Acid Fast Smear+Culture 05/11/24 * Acid Fast Smear+Culture 05/11/24 Future Scheduled Tests Radiology* XR Chest 2 Views 06/11/[address] [facility] 01-27-2025 NoteGetWell Learning Participants Patient Elizabeth Understands Education Yes Elizabeth Education Video Avoiding Infections in the [facility]01-27-2025 Note Progress Note - Pharmacy Pharmacy to [...] home dose. [facility] NoteMicrobiology PROCEDURE: Blood Culture Charcoal [R1] SOURCE: Blood BODY SITE: Hand R COLLECTED DATE/TIME: 05/06/2024 11:01 EST RECEIVED DATE/TIME: 05/06/2024 12:01 EST START DATE/TIME: 05/06/2024 12:01 EST FREE TEXT SOURCE: IV start Gabrielle Casas, Rima Anthony M.D., Astrit H FINAL REPORTS Final Report [] Verified Date/Time: 05/13/2024 15:00 EST No growth at 7 days. Performing Locations R1: This [facility] performed at: [facility], [address] [place] [address], [address] [place] [address], [id number] Yu StreetComment on above:Performed By: #### [id number] #### [facility] [address] [place] [address] [id number] NoteMicrobiology PROCEDURE: Blood Culture Charcoal [R1] SOURCE: Blood BODY SITE: Arm L COLLECTED DATE/TIME: 05/06/2024 12:22 EST RECEIVED DATE/TIME: 05/06/2024 13:08 EST START DATE/TIME: 05/06/2024 13:08 EST FREE TEXT SOURCE: left forearm Gabrielle Casas, Rima Anthony M.D., Astrit H FINAL REPORTS Final Report [] Verified Date/Time: 05/13/2024 15:00 EST No growth at 7 days. Performing Locations R1: This test was performed at: [facility], [address] [place] [address], [id number] [place] [address], [id number] Yu StreetComment on above:Performed By: #### [id number] #### [facility] [address] [place] [address] [phone] NoteProgress Note-Physician Assessment/Plan PLAN: 1. 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 possible drug rxn to [facility], consider [...] dehydration from poor po intake, pt. was bnlgh1C IVF and unable to maintain MAP 65 [...] K/Mag prn -Trend labs 12. 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 follows cardio at [facility], s/p ADARSH -Asa, atorvastatin, -Hold carvedilol, entresto, spironolactone 13. Chronic systolic heart failure (I50.22: Chronic systolic (congestive) heart failure) Pt. follows cardio at [facility], s/p ADARSH -Asa, atorvastatin, -Hold carvedilol, entresto, [...] -Atorvastatin 18. Pancreatic in (more content not included)...[facility] Comment on above:Result Comment: Electronically Signed By: Azucena CROWLEY\.br\Date and Time Signed: 05/13/24 13:37 EST\.br\Electronically Co- Signed By: Leodan Pandya DO\.br\Date and Time Co-Signed:05/13/24 13:45 [id number] NoteMicrobiology PROCEDURE: Bronchial Culture [R1] SOURCE: Bronch [...] Locations R1: This test was performed at: [facility], [address] [place] [address], [address] [place] [address], [id number] Yu StreetComment on above:Performed By: #### [id number] #### [facility] [address] [place] [address] [phone] NoteMicrobiology PROCEDURE: Bronchial Culture [R1] SOURCE: Bronch Wash BODY SITE: COLLECTED DATE/TIME: 05/11/2024 13:31 EST RECEIVED DATE/TIME: 05/11/2024 15:49 EST START DATE/TIME: 05/11/2024 15:50 EST FREE TEXT SOURCE: General lung washing Angelo STEWART, Pooja Stephens MD, Pooja Belcher FINAL REPORTS Final Report [] Verified Date/Time: 05/13/2024 07:52 EST Scant growth of Normal upper respiratory wadny isolated STAINS Gram Stain Report [] Verified Date/Time: 05/12/2024 08:13 EST Rare epithelial cells No WBC's seen. No organisms seen. Performing Locations R1: This test was performed at: [facility], [address] [place] [address], [address] [place] [address], [id number] Yu StreetComment on above:Performed By: #### [id number] #### [facility] [address] [place] [address] [id number] NoteMicrobiology PROCEDURE: Bronchial Culture [R1] SOURCE: Bronch Wash BODY SITE: COLLECTED DATE/TIME: 05/11/2024 13:32 EST RECEIVED DATE/TIME: 05/11/2024 15:38 EST START DATE/TIME: 05/11/2024 15:38 EST FREE TEXT SOURCE: Left lower lobe BAL Angelo STEWART, Pooja Stephens MD, Pooja Belcher FINAL REPORTS Final Report [] Verified Date/Time: 05/13/2024 07:51 EST No growth at 2 days. STAINS Gram Stain Report [] Verified Date/Time: 05/12/2024 08:17 EST Occasional White Blood Cells Rare epithelial cells No organisms seen. Performing Locations R1: [facility] performed at: [facility], [address] [place] [address], [id number] [place] [address], YdncdfCrystal Clinic Orthopedic CenterComment on above:Performed By: #### [id number] #### [facility] [address] [place] [address] [phone] NoteMicrobiology PROCEDURE: Bronchial Culture [R1] SOURCE: Bronch Wash BODY SITE: COLLECTED DATE/TIME: 05/11/2024 13:32 EST RECEIVED DATE/TIME: 05/11/2024 15:38 EST START DATE/TIME: 05/11/2024 15:38 EST FREE TEXT SOURCE: Left lower lobe BAL Angelo STEWART, Pooja Stephens MD, Pooja Belcher FINAL REPORTS Final Report [] Verified Date/Time: 05/13/2024 07:51 EST No growth at 2 days. STAINS Gram Stain Report [] Verified Date/Time: 05/12/2024 08:17 EST Occasional White Blood Cells Rare epithelial cells No organisms seen. Performing Locations R1: This test was performed at: [facility], [address] [place] [address], [id number] [place] [address], OrbekjCrystal Clinic Orthopedic CenterComment on above:Performed By: #### [id number] #### [facility] [address] [place] [address] [phone] NoteProgress Note - Pharmacy Pharmacy to Dose [...] home dose. has been started on zithromax/rocephinFisher [facility] NoteOperative Report Procedure: Bronchoscopy Indications: [...] bronchoalveolar lavage was performed from left lower lobeCrystal Clinic Orthopedic CenterComment on above:Result Comment: Electronically Signed By: Angelo STEWART, Pooja X\.br\Date and Time Signed: 05/11/24 14:18 [id number] NoteProgress Note-Physician Assessment/Plan 1. Acute hypoxic respiratory [...] 19.7 % (05/10/24 05:38 (more content not included)...[facility] CenterComment on above:Result Comment: Electronically Signed By: Kevon Duron PA-C, Duane Ramon.br\Date and Time Signed: 05/10/24 12:25 [id number] Note Progress Note-Physician Assessment/Plan 1. 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 possible drug rxn to arabella Souza [...] Critical Care Ill/Injured Pt Initial 30-74 Min 22694 2. Shock (R57.9: Shock, unspecified) Suspect distributive [...] dehydration from poor po intake, pt. was mpjkc1E IVF and unable to maintain MAP 65 [...] panel, Cdiff - pending 11. 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 follows cardio at [facility], s/p ADARSH -Asa, atorvastatin, -Hold carvedilol, entresto, spironolactone 12. Chronic systolic heart failure (I50.22: Chronic systolic (congestive) heart failure) Pt. follows cardio at [facility], s/p ADARSH -Asa, atorvastatin, -Hold carvedilol, entresto, [...] diverticulosis -Pt. reports sc (more content not included)...[facility] above:Result Comment: Electronically Signed By: [...] home dose. has been started on zithromax/rocephinFisher [facility] 05-10-2024 NoteCritical Care Progress Note Assessment/Plan [...] lightheadedness. I discussed the case w/ Dr. Stephnes. We will plan to bronch tomorrow to [...] EST) 05/09/24 * 0 (more content not included)...[facility]01-22-2025 Note Critical Care Progress Note Assessment/Plan 1. [...] EST) 05/09/24 * 0 (more content not included)...[facility]01-22-2025 Note Progress Note-Physician Assessment/Plan Awaiting cardio records w/ echo from [facility] 1. Acute hypoxic respiratory failure (J96.01: Acute respiratory failure with hypoxia) 2/2 opportunistic infection vs possible drug reaction to Stelara. consider CATERING SALES MANAGER -Denies home 02, Cpap, Biapap use -> [...] dehydration from poor po intake, pt. was kmbsy5O IVF and unable to maintain MAP 65 [...] as outpatient IV vanco/zosyn given recurrent hypotension Pulm/District Gauger managing. 5. Pleural effusion on right (J90: [...] replace lytes as needed. 10. 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 follows cardio at [facility], s/p ADARSH -Asa, atorvastatin, -Hold carvedilol, Entresto, spironolactone Records from [facility] pending. 11. Chronic systolic heart failure (I50.22: [...] Chronic residual L hemiplegia (more content not included)...[facility] CenterComment on above:Result Comment: Electronically Signed By: Azucena CROWLEY\.br\Date and Time Signed: 05/09/24 10:56 EST\.br\Electronically Co-Signed By: Leodan Pandya DO\.br\Date and Time Co-Signed:05/09/24 12:20 [id number] NoteConsultation Note Patient: BENNIE DENNIS Age: 78 [...] Oral, TIDWM, Start date (more content not included)...[facility] CenterComment on above:Result Comment: Electronically Signed By: Eloisa Hassan MD\.br\Date and Time Signed: 05/09/2510:53 [id number] NoteConsultation Note Patient: BENNIE DENNIS Age: 78 [...] EST, 05/06/24 16:01:00 EST ipratropium 0.02% Inh Alisah 2.5 mL: 2.5 mL, Soln-Inh, NEB, QID, [...] TIDWM, Start date (more content not included)...[facility] HospitalComment on above:Result Comment: Electronically Signed By: Debra STEWART, Eloisa Purdy.dana\Date and Time Signed: 05/09/2510:53 [id number] NoteProgress Note - Pharmacy Pharmacy to Dose [...] home dose. has been started on zithromax/rocephinFisher [facility] NoteProgress Note-Physician Assessment/Plan Awaiting cardio records w/ echo from [facility] 1. Acute hypoxic respiratory failure (J96.01: Acute respiratory failure with hypoxia) 2/2 opportunistic infection vs possible drug reaction to Stelara. consider CATERING SALES MANAGER -Denies home 02, Cpap, Biapap use -> [...] is 35 mmHg. -Awaiting echo reports from [facility] for comparison Consult PCCM: defer mgt. 3. Acute hypotension (I95.9: Hypotension, unspecified) Initially thought related anti-hypertensive meds c/w dehydration from poor po intake, pt. was [id number] IVF and unable to maintain MAP 65 [...] as outpatient IV vanco/zosyn given recurrent hypotension Pulm/District Gauger managing. 5. Pleural effusion on right (J90: [...] replace lytes as needed. 10. 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 follows cardio at [facility], s/p ADARSH -Asa, atorvastatin, -Hold carvedilol, entresto, spironolactone Records from [facility] pending. 11. Chronic systolic heart failure (I50.22: [...] residual L hemiplegia -Asa (more content not included)...[facility] Center[facility]: Result Comment: Electronically Signed By: Azucena CROWLEY\.br\Date and Time Signed: 05/08/24 12:53 EST\.br\Electronically Co-Signed By: Leodan Pandya DO\.br\Date and Time Co-Signed:05/08/24 13:20 [id number] Note Critical Care Progress Note Assessment/Plan 1. [...] mcg/kg/min] + Dextrose 5% (more content not included)...[facility]01-21-2025 NoteProgress Note - Pharmacy Vancomycin Pharmacy to [...] care. Please contact pharmacy if there are questions.[facility]01-21-2025 NoteProgress Note - Pharmacy Pharmacy to Dose [...] has been started on zithromax/rocephin Discharge Plan: [facility]01-21-2025 NoteProgress Note-Physician Assessment/Plan Awaiting cardio records w/ echo from [facility] 1. Acute hypoxic respiratory failure (J96.01: Acute [...] Critical Care Ill/Injured Pt Initial 30-74 Min 82959 2. Shock (R57.9: Shock, unspecified) POA -Acute [...] is 35 mmHg. -Awaiting echo reports from [facility] for comparison Consult PCCM: defer mgt. -Plan apprec. 3. Acute hypotension (I95.9: Hypotension, unspecified) Initially thought related anti-hypertensive meds c/w dehydration from poor po intake, pt. was [id number] IVF and unable to maintain MAP 65 [...] nephrology: If Cr worsens 10. 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 follows cardio at [facility], s/p ADARSH -Asa, atorvastatin, -Hold carvedilol, entresto, [...] in his brief (more content not included)... [facility] CenterComment on above:Result Comment: Electronically Signed By: ORESTES OGLESBY, Elizabeth\.br\Date and Time Signed: 05/07/24 15:33 EST\.br\Electronically Co-Signed By: ORESTES OGLESBY Elizabeth\.br\Date and Time Co-Signed: 05/07/24 17:02 EST\.br\Electronically Co-Signed By: ORESTES OGLESBY Elizabeth\.br\Date and Time Co-Signed: 05/07/24 20:00 EST\.br\Electronically Co- Signed By: ORESTES OGLESBY Elizabeth\.br\Date and Time Co-Signed: 05/07/24 20:07 EST\.br\Electronically Co-Signed By: Leodan Pandya DO\.br\Date and Time Co-Signed: 05/08/24 07:01 [id number] NoteConsultation Note Chief Complaint Generalized weakness Reason [...] cx, and MRSA sw (more content not included)...[facility] CenterComment on above:Result Comment: Electronically Signed By: Maya STEWART, Neela Cardona\.br\Date and Time Signed: 05/07/24 23:49 [id number] Note Consultation Note Chief Complaint Generalized weakness [...] cx, and MRSA sw (more content not included)...[facility] CenterComment on above:Result Comment: Electronically Signed By: Maya STEWART, Neela Cardona\.br\Date and Time Signed: 05/07/24 23:49 [id number] NoteProgress Note - Pharmacy Vancomycin Pharmacy to [...] questions, please contact the pharmacy at extension [phone]. Age: 78 Years Allergies: Allergies (1) Active [...] 05:50:00) Lymph Auto: 16.6 % (05/07/24 05:50:00) [place] Auto: 2.5 % Low (05/07/24 05:50:00) Eos Auto: 0 % (05/07/24 05:50:00) Basophil Auto: 0.1 % (05/07/24 05:50:00) Neutro Absolute: 4.4 E9/L (05/07/24 05:50:00) Lymph Absolute: 0.9 E9/L Low (05/07/24 05:50:00) [place] Absolute: 0.1 E9/L Low (05/07/24 05:50:00) Eos [...] 12:49:00) Specimen Source: Nasal (05/06/24 16:13:00) COVID-19 ([facility]): Not Detected (05/06/24 16:13:00)[facility] 05-07-2024 NoteEchocardiology Procedure Exam Date/Time Accession # Ordering Echo Transthoracic 05/07/2024 11:58 EST [id number] CARLISLE AGACNP-BC, Elizabeth Complete CPT code 15612 [id number] Reason for Exam (Echo Transthoracic Complete) Congestive Heart Failure Report [facility] [address] [place] [address] Adult Echocardiogram Report Name: BENNIE DENNIS Jaky Study Date: 05/07/2024 11:11 AM BP: 111/57 mmHg Patient Location: [address] Bed(s) [facility] HR: 83 : 1945 Gender: Male Height: 67.5 in Age: 78 yrs Ethnicity: [facility] Weight: 128 lb Reason For Study: Congestive Heart Failure BSA: 1.7 m2 History: CAD, AAICD, PAF, HTN, CVA Ordering Physician: Tanisha Performed By: Jovana Mckay RDCS Interpretation Summary Akinetic mid to distal anterseptum, [...] by: Cleveland Cuadra MD Transcribed by: Technologist: [facility] Note Interdisciplinary Note - PT PT Evaluation done this date. Pt. with 03/11 on AM-PAC this date. He requires mod Ax1 with all functional activities due to weakness. Recommend FWW for home use (will need order for this) and SNF. Will continue to follow.[facility]01-20-2025 NoteProgress Note - Pharmacy Pharmacy to Dose [...] Plan: TBD Please contact pharmacy at [phone]. [phone] with any questions.[facility]01-19-2025 NoteHistory and Physical Basic Information Admit Date/Time:05/06/2024 [...] fL (05/06/24 11:01:00) Neutro Auto: 60.1 % (05/06/24 11:01:00) Lymph Auto: 32.5 % (05/06/24 11:01:00) [place] Auto: 6.6 % (05/06/24 11:01:00) Eos Auto: 0.2 % (05/06/24 11:01:00) Basophil Auto: 0.6 % (05/06/24 11::00) Neutro Absolute: 3.7 E9/L (05/06/24 11::00) Lymph Absolute: 2 E9/L (05/06/24::00) [place] Absolute: 0.4 E9/L (05/06/24 11::00) Eos Absolute: 0 E9/L (05/06/24::00) Basophil Absolute: 0 E9/L (05/06/24::00) PT: 23.3 second(s) High (05/06/24 11::00) INR: 2.07 (05/06/24 11::00) PTT: 39.3 second(s) High (05/06/24::00) Glucose Lvl: 92 mg/dL (05/06/24 11::00) BUN: 39 mg/dL High (05/06/24 11::00) Creatinine: 1.5 mg/dL High (05/06/24 11::00) eGFR: 47 mL/min/1.73 m2 Low (05/06/24 11::00) BUN/Creat Ratio: 26 High (05/06/24 11::00) Sodium Lvl: 135 mmol/L (05/06/24 11::00) Potassium Lvl: 3.8 mmol/L (05/06/24 11::00) Chloride: 100 mmol/L Low (05/06/24 11::00) CO2: 26 mmol/L (05/06/24 11::00) AGAP: 13 mEq/L (05/06/24::00) Calcium Lvl: 8.4 mg/dL Low (05/06/24 11::00) Alk Phos: 70 Int._Unit/L (05/06/24 11::00) ALT: 45 Int._Unit/L (05/06/24 11::00) AST: 89 Int._Unit/L High (05/06/24 11::00) Total Protein: 6.4 gm/dL (05/06/24 11::00) Albumin Lvl: 3.2 gm/dL Low (05/06/24 11:01:00) Globulin: 3.2 gm/dL (05/06/24 11:01:00) A/G Ratio: 1 Low (05/06/24 11:01:00) Bili Total: 1 mg/dL (05/06/24 11:01:00) Bili Direct: 0.2 mg/dL (05/06/24 11:01:00) Bili Indirect: 0.8 mg/dL (05/06/24 11:01:00) Lipase Lvl: 74 unit/L High (05/06/24 11:01:00) Lactic Acid Lvl: 1.6 mmol/L (05/06/24 11:01:00) TSH: 3.01 mcIU/mL (05/06/24 11:01:00) Troponin HS: 31.1 pg/mL (05/06/24 12:22:00) BNP: 93 pg/mL High (05/06/24 11:01:00) Procalcitonin: 0.22 ng/mL (05/06/24 11:01:00) pH Arterial: 7.492 High (05/06/24 11:08:00) P CO2 Arterial: 32.9 mmHg Low (05/06/24 11:08:00) P O2 Arterial: 41.6 mmHg Critical (05/06/24 11:08:00) Base Ex (more content not included)...[facility] CenterComment on above:Result Comment: Electronically Signed By: Elizabeth METZGER\.br\Date and Time Signed: 05/06/24 14:54 EST\.br\Electronically Co-Signed By: Elizabeth METZGER\.br\Date and Time Co-Signed: 05/06/24 16:05 EST\.br\Electronically Co-Signed By: Elizabeth METZGER\.br\Date and Time Co-Signed: 05/06/24 16:07 EST\.br\Electronically Co-Signed By: Pan Gar DO\.br\Date and Time Co-Signed: 05/06/24 18:25 [id number] Note Progress Note - Pharmacy Pharmacy to [...] Plan: TBD Please contact pharmacy at ext. [phone] with any questions.[facility]12-12-2024 Hospital Discharge instructions Patient Education 03/29/2024 15:39:49 [...] instructions at home: Medicines and vitamins Take beny-jev-qqtoszk and prescription medicines only as told by [...] and water are not available, use hand financial internship. Stay up to date on your vaccinations, [...] information about ulcerative colitis at the [employer] [place] of Diabetes and Digestive and Kidney Diseases [...] provider. Document Revised: 12/09/2020 Document Reviewed: 12/09/2020 Status Overload Patient Education 2023 [employer] Follow Up Care 03/29/2024 14:26:24 With:Eloisa Hassan Address: [address], [address] [place] [address]- [phone] Business (1) When:04/01/2024 15:39:28 Comments:Follow-up with Dr. Hassan on Tuesday as previously scheduled. Return to the ED with any new or worsening symptoms. With:Pete Gar Address:Unknown When:Within 3 Day(s) [facility] 12-12-2024 NoteED Patient Education Note Gastroenterology [...] at home: Medicines and vitamins ??? Take lyug-wpz-zjnidjx and prescription medicines only as told by [...] and water are not available, use hand financial internship. ??? Stay up to date on yo (more content not included)...[facility]12-12-2024 Evaluation + Plan noteExtracted from:Title:ED NoteAuthor:Mile KAY, Linda CrowDate:03/29/24 Chronic ulcerative colitis ( K51.90: Ulcerative colitis, unspecified, without complications) Decreased oral intake (R63.8: Other symptoms and signs concerning food and fluid intake) Future Appointments Appointment Date:04/02/2024 01:30:00 PM Scheduled Provider:Eloisa Hassan MD Location:[facility] Appointment Type:[facility] Follow Up Appointment Date:08/30/2024 10:00:00 AM Scheduled Provider:Pete Gar MD Location:[facility] Appointment Type: Open Appointment Date:11/21/2024 11:00:00 AM Scheduled Provider: Location:[facility] Appointment Type: Medicare Wellness Subsequent Future Scheduled [...] D 25 Hydroxy 03/21/24 * Ferritin 03/21/[address] [facility] 12-11-2024 NoteProgress Note-Physician Patient: BENNIE DENNIS Age: 78 years Sex: Male : 1945 Associated Diagnoses: None Author: Sarwat Puga Jr., DO Postoperative Information Postoperative disposition: Postoperative disposition: Home. Optimetrix number: Optimetrix number [id number]. Anesthetic utilized: General. Physical Examination Vital Signs [...] to Ambulatory Surgery Unit, and To home ).[facility] CenterComment on above:Result Comment: Electronically Signed By: Sarwat Puga Jr., DO.dana\Date and Time Signed: 03/28/24 11:38 [id number] NotePatient Education - Text Colonoscopy Care After [...] [facility] Your doctor may also give you specific [...] Document Re-Released: 09/26/2006 ExitCare??? Patient Information ???2009 Pickup Services. Gastroenterology Colitis Colitis is a condition in [...] this diagnosed? This condition (more content not included)...[facility] 03-28-2024 NoteProgress Note-Physician Patient: BENNIE DENNIS Age: [...] TABLET DAILY, # 90 tab(s), Refills(s) 3, Pharmacy:[facility], 167.8, cm, 07/18/23 13:34:00 EDT, Height/Length Dosing, 66.2, kg, 07/18/23 13:34:00 EDT, Weight Dosing Documented Medications Documented Entresto 24 mg-26 mg oral tablet: 1 tab(s), Oral, BID, Refill(s) 0 ICaps AREDS 2: See Instructions, Refill(s) 0, take 1 orally twice a da, Prophylaxis Misc Prescription: Mini fish oil 1340mg one a day One-A-Day [employer] Formula: 1 tab(s), Oral, Daily, Refill(s) [...] Adhesive capsulitis of shoulder / SNOMED CT 6112156565 / Confirmed ASCVD (arteriosclerotic cardiovascular disease) / SNOMED CT 246042774 / Confirmed Blood in stool / SNOMED CT 2960355532 / Confirmed BMI 22.0-22.9, adult / SNOMED CT 3015691884 / Confirmed Chronic anticoagulation / SNOMED CT 6168699986 / Confirmed DDD (degenerative disc disease), lumbar / SNOMED CT 08607882 / Confirmed Elevated liver enzymes / SNOMED CT 4580729287 / Confirmed Esophageal dysphagia / SNOMED CT 45621393 / Confirmed Hemiparesis / SNOMED CT 16748920 / Confirmed Hx of arterial ischemic stroke / SNOMED CT 6786358095 / Confirmed Hx of heart artery stent / SNOMED CT 6660689905 / Confirmed Loose stools / SNOMED CT 1593723791 / Confirmed Nonsmoker / SNOMED CT 22643953 / Confirmed Paroxysmal A-fib / SNOMED CT 950800848 / Confirmed Prostate disorder / SNOMED CT 57495186 / Confirmed Ulcerative colitis / SNOMED CT 353964580 / Confirmed Canceled: CVA (cerebral vascular accident) / SNOMED CT 285744353 Canceled: Dehydration / SNOMED CT 54121830 Canceled: Hypotension / SNOMED CT 093164069 Canceled: ID (myocardial infarction) / SNOMED CT 68727328 Histories Past Medical History: No active or resolved past medical history items have been selected or recorded. Procedure history: Colonoscopy ([id number]). Comments: 02/28/2023 10:40 EST Marcela Noonan LPN 2013 and 2020 Cardiac catheter w/ stent ([id number]). Comments: 02/28/2023 10:40 Marcela Ignacio LPN July 2012 Carotid endarterectomy w/ stent ([id number]). Comments: 02/28/2023 10:41 Marcela Ignacio LPN (more content not included)... [facility] CenterComment on above:Result Comment: Electronically Signed By: Sarwat Puga Jr., DO.br\Date and Time Signed: 03/28/24 08:19 EST 03-01-2024 [...] for Disease Control and Prevention: cdc.gov ??? [place] [employer]: heart.org ??? National Heart, Lung, and Blood [place]: nhlbi.nih.gov This information is not intended to replace advice given to you by your health care provider. Make sure you discuss any questions you have with your health care provider. Document Revised: 12/23/2022 Document Reviewed: 12/16/2022 Status Overload Patient Education ? 2023 Status Overload [facility] 02-20-2024 NoteNurse Consultation Note Reason for Visit [...] inactivated 02/20/2019 Recorded pneumococcal 13-valent vaccine 02/05/2019 [facility]ed[facility]30[facility] Evaluation note* Encounter Date Diagnosis Assessment Notes Treatment Notes Treatment Clinical Notes May, Ulcerative colitis (ICD-10 - K51 .90) Continue Balsalazide without change Colonoscopy [facility] Other 11-02-2021 Evaluation note* Encounter Date Diagnosis Assessment Notes Treatment Notes Treatment Clinical Notes Feb, Fecal incontinence (ICD-10 - R15 .9) Feb,igmoid diverticulosis (ICD-10 - K57.30) Feb,onstipation, unspecified constipation type (ICD-10 - K59.00) Feb,leeding (ICD-10 - R58) PATIENT STATES HE DOES STILL NOTICE SOME OF THIS. Feb,Ulcerative colitis (ICD-10 - K51.90) REPEAT COLON IN A FEW MONTHS WILL START MEDICATION. [facility] Other Evaluation + Plan note Future Appointments Appointment Date:08/29/2023 08:00:00 AM Scheduled Provider:Pete Gar MD [facility] Future App[facility]ments Appointment Date:02/27/2024 05:45:00 PM Scheduled Provider:Pete Gar MD Location:[facility] Appointment Type: Open Appointment Date:11/21/2024 11:00:00 AM Scheduled Provider: Location:[facility] Appointment Type: Medicare Wellness Subsequent [facility] Evaluation + Plan note Future Appointments Appointment Date:03/28/2024 09:00:00 AM Scheduled Provider: Location:[facility] Appointment Type:Surgery FT Appointment Date:08/30/2024 10:00:00 AM Scheduled Provider:Pete Gar MD Location:[facility] Appointment Type: Open Appointment Date:11/21/2024 11:00:00 AM Scheduled Provider: Location:[facility] Appointment Type:FM Medicare Wellness Subsequent Future Scheduled [...] D 25 Hydroxy 03/21/24 * Ferritin 03/21/24 [facility] Evaluation + Plan note Future Appointments Appointment Date:07/05/2024 09:15:00 AM Scheduled Provider:Eloisa Hassan MD Location:[facility] Digestive [facility] Appointment Type:[facility] Follow Up Appointment Date:08/30/2024 10:00:00 AM Scheduled Provider:Pete Gar MD Location:[facility] Appointment Type: Open Appointment Date:11/21/2024 11:00:00 AM Scheduled Provider: Location:[facility] Appointment Type:FM Medicare Wellness Subsequent Diagnostic Tests [...] * O & P Exam, Routine 03/21/[address] [facility] Evaluation + Plan note Future Appointments Appointment Date:07/05/2024 09:15:00 AM Scheduled Provider:Eloisa Hassan MD Location:[facility] Digestive [facility] Appointment Type:[facility] Follow Up Appointment Date:08/30/2024 10:00:00 AM Scheduled Provider:Pete Gar MD Location:[facility] Appointment Type: Open Appointment Date:11/21/2024 11:00:00 AM Scheduled Provider: Location:[facility] Appointment Type:FM Medicare Wellness Subsequent Future Scheduled Tests Laboratory* Pancreatic Elastase, Fecal 03/21/24 * O & P Exam, Routine 03/21/24 [facility] Evaluation + Plan note Future Appointments Appointment Date:07/05/2024 09:15:00 AM Scheduled Provider:Eloisa Hassan MD Location:[facility] Appointment Type:[facility] Follow Up Appointment Date:08/30/2024 10:00:00 AM Scheduled Provider:Pete Gar MD Location:[facility] Appointment Type: Open Appointment Date:11/21/2024 11:00:00 AM Scheduled Provider: Location:[facility] Appointment Type: Medicare Wellness Subsequent Diagnostic Tests Pending * O & P Exam, Routine 04/04/24 * Pancreatic Elastase, Fecal 04/04/[address] [facility] evaluation + Plan note Future Appointments Appointment Date:05/03/2024 02:00:00 PM Scheduled Provider: Location:[facility] Appointment Type:ASU IV Other (FT) Appointment Date:07/05/2024 09:15:00 AM Scheduled Provider:Eloisa Hassan MD Location:[facility] Digestive [facility] Appointment Type:[facility] Follow Up Appointment Date:08/30/2024 10:00:00 AM Scheduled Provider:Pete Gar MD Location:[facility] Appointment Type: Open Appointment Date:11/21/2024 11:00:00 AM Scheduled Provider: Location:[facility] Appointment Type: Medicare Wellness Subsequent [facility] Evaluation + Plan note Future Appointments Appointment Date:07/05/2024 09:15:00 AM Scheduled Provider:Eloisa Hassan MD Location:[facility] Appointment Type:[facility] Follow Up Appointment Date:08/30/2024 10:00:00 AM Scheduled Provider:Pete Gar MD Location:[facility] Appointment Type: Open Appointment Date:11/21/2024 11:00:00 AM Scheduled Provider: Location:[facility] Appointment Type: Medicare Wellness Subsequent [facility] Evaluation + Plan note Future Appointments Appointment Date:06/07/2024 10:20:00 AM Scheduled Provider:SWETHA COLLIER PA-C Location:[facility] Appointment Type:URO New Patient Appointment Date:06/29/2024 10:00:00 AM Scheduled Provider:[facility]ooja Stephens [facility] Follow [facility] (FT) Appointment Date:07/05/2024 09:15:00 AM Scheduled Provider:Eloisa Hassan MD Location:[facility] Appointment Type:BADH Follow Up Appointment Date:08/30/2024 10:00:00 AM Scheduled Provider:[facility]: Open Appointment Date:11/21/2024 11:00:00 AM Scheduled Provider: Location:[facility] Appointment Type: Medicare Wellness Subsequent Future Scheduled Tests Laboratory* Calprotectin, Fecal 06/01/24 * C-Reactive Protein 06/01/24 Radiology* CT Chest w/o High Resolution 06/15/24 * XR Chest 2 Views 06/11/24 [facility] Evaluation + Plan note Future Appointments Appointment Date:06/29/2024 10:00:00 AM Scheduled Provider:Pooja Stephens MD [facility] Follow Up (FT) Appointment Date:07/05/2024 09:15:00 AM Scheduled Provider:Eloisa Hassan MD Location:[facility] Appointment Type:BADH Follow Up Appointment Date:08/30/2024 10:00:00 AM Scheduled Provider:Pete Gar MD [facility] Open Appointment Date:11/21/2024 11:00:00 AM Scheduled Provider: Location:[facility] Appointment Type: Medicare Wellness Subsequent Appointment Date:12/07/2024 09:40:00 AM Scheduled Provider:SWETHA COLLIER PA-C Location:[facility] Appointment Type:URO Office Visit Future Scheduled Tests Laboratory* Calprotectin, Fecal 06/01/24 * C-Reactive Protein 06/01/24 Radiology* CT Chest w/o High Resolution 06/15/24 * XR Chest 2 Views 06/11/24 [facility] evaluation + Plan note Future Appointments Appointment Date:07/13/2024 11:00:00 AM Scheduled Provider:Pooja Stephens MD [facility] Appointment Type:Pulmonary Follow Up (FT) Appointment Date:08/01/2024 10:00:00 AM Scheduled Provider: Location:[facility] Appointment Type:ASU IV Other (FT) Appointment Date:08/30/2024 10:00:00 AM Scheduled Provider:Pete Gar MD Location:[facility] Appointment Type: Open Appointment Date:10/04/2024 10:15:00 AM Scheduled Provider:Eloisa Hassan MD Location:[facility] Appointment Type:BAD Follow Up Appointment Date:11/21/2024 11:00:00 AM Scheduled Provider: Location:[facility] Appointment Type: Medicare Wellness Subsequent Appointment Date:12/07/2024 09:40:00 AM Scheduled Provider:SWETHA COLLIER PA-C Location:[facility] Appointment Type:URO Office Visit Future Scheduled Tests Radiology* XR Chest 2 Views 06/11/[address] [facility] evaluation + Plan note Future Appointments Appointment Date:08/30/2024 10:00:00 AM Scheduled Provider:Pete Gar MD Location:[facility] Appointment Type: Open Appointment Date:10/04/2024 10:15:00 AM Scheduled Provider:Eloisa Hassan MD Location:[facility] Appointment Type:BAD Follow Up Appointment Date:11/21/2024 11:00:00 AM Scheduled Provider: Location:[facility] Appointment Type: Medicare Wellness Subsequent Appointment Date:12/07/2024 09:40:00 AM Scheduled Provider:SWETHA COLLIER PA-C Location:[facility] Appointment Type:URO Office Visit Future Scheduled Tests Radiology* XR Chest 2 Views 06/11/[address] [facility] evaluation + Plan note Future Appointments Appointment Date:11/21/2024 11:00:00 AM Scheduled Provider: Location:[facility] Appointment Type: Medicare Wellness Subsequent Appointment Date:12/07/2024 09:40:00 AM Scheduled Provider:SWETHA COLLIER PA-C Location:[facility] Appointment Type:URO Office Visit Appointment Date:01/01/2025 02:40:00 PM Scheduled Provider:Pete Gar MD Location:[facility] Appointment Type: Open Appointment Date:01/02/2025 02:15:00 PM Scheduled Provider:Eloisa Hassan MD [facility] [facility] Appointment Type:[facility] Follow Up Diagnostic Tests Pending * TIBC Calculated 10/16/24 * C-Reactive Protein 10/16/24 * Iron Level 10/16/24 * Vitamin D 25 Hydroxy 10/16/24 * Ferritin 10/16/24 * Comprehensive Metabolic Panel 10/16/24 * Calprotectin, Fecal 10/16/24 Future Scheduled Tests Radiology* XR Chest 2 Views 06/11/24 [facility] Evaluation + Plan note Future Appointments Appointment Date:01/02/2025 10:20:00 AM Scheduled Provider:ZEKE TRAN CNP Location:[facility] Appointment Type: Open Appointment Date:01/02/2025 02:15:00 PM Scheduled Provider:Eloisa Hassan MD Location:[facility] Appointment Type:BADH Follow Up Appointment Date:11/21/2025 11:00:00 AM Scheduled Provider: Location:[facility] Appointment Type: Medicare Wellness Subsequent Future Scheduled Tests Radiology* XR Chest 2 Views 06/11/24 [facility] evaluation + Plan note Future Appointments Appointment Date:04/03/2025 10:00:00 AM Scheduled Provider:ZEKE TRAN CNP Location:[facility] Appointment Type: Open Appointment Date:11/21/2025 11:00:00 AM Scheduled Provider: Location:[facility] Appointment Type: Medicare Wellness Subsequent Diagnostic Tests Pending * C-Reactive Protein 01/02/25 * Calprotectin, Fecal 01/02/25 Future Scheduled Tests Radiology* XR Chest 2 Views 06/11/24 [facility] Evaluation noteNo InformationNort [employer] Other Evaluation noteNo assessment information available [facility] Work Phone: History and physical note Author Sebas Jalloh [facility] June 30, 2022 11:28amNote Date/TimeMarch 2022 11:28[place] [address] Gastroenterology H&P Signed Patient: Bennie Dennis MR#: [id number] : 1945 Acct:[id number] Age/Sex: 76 / M Adm Date: 3 Loc: Room: Type: [facility] Attending Dr: Sebas Jalloh MD Copies to: MD [place] MD~ Date of Service: 06/30/2022 HISTORY & PHYSICAL: Patient's history with special attention to the cardiovascular, pulmonary systems and the current problem was reviewed with the patient immediately prior to the procedure. Present medications and doses reviewed in the EMR. Allergies and pertinent laboratory tests were also re viewedat this time in the EMR. The physical [...] signed by Sebas Jalloh MD> 06/30/22 1128 [facility] Work Phone: History general Narrative - Reported* Type Description Date Surgical History PACEMAKER [facility] Other History general Narrative - Reported* Type Description Date Surgical History PACEMAKER Surgical Historyheart stentHospitalization Historysee surgical hx [facility] Other Hospital course Narrative No data available for this section [facility] Additional Instructions DISCHARGE INSTRUCTIONS [...] problems. -Follow up with PCP. -Office number [phone].[facility] Work Phone: Hospital Discharge instructions No data available for this section [facility] No data available for this section [facility] Summary Purpose Family History No Family History Records Found Relationship Condition Age at Onset Recorded Date/T urbano Not Specified Cardiovascular disease Unknown Relationship Condition Age at Onset Recorded Date/T urbano mother Cardiovascular disease Unknown brotherMalignant neoplasmUnknownDeceasedUnknownfatherMalignant neoplasmUnknown motherHeart diseaseUnknown Advance Directives No Advanced Directives Records Found [...] and content) DATE CREATED AUTHOR 08/19/2018 [facility] DATE CREATED AUTHOR AUTHOR'S ORGANIZ ATION 09/24/2022 [facility] DATE CREATED AUTHOR AUTHOR'S ORGANIZ ATION 02/22/2024 [facility] DATE CREATED AUTHOR AUTHOR'S ORGANIZ ATION 03/31/2024 [facility] DATE CREATED AUTHOR AUTHOR'S ORGANIZ ATION 04/03/2024 [facility] DATE CREATED AUTHOR AUTHOR'S ORGANIZ ATION 04/05/2024 [facility] DATE CREATED AUTHOR AUTHOR'S ORGANIZ ATION 04/09/2024 [facility] DATE CREATED AUTHOR AUTHOR'S ORGANIZ ATION 04/10/2024 [facility] DATE CREATED AUTHOR AUTHOR'S ORGANIZ ATION 05/06/2024 [facility] DATE CREATED AUTHOR AUTHOR'S ORGANIZ ATION 05/08/2024 [facility] DATE CREATED AUTHOR AUTHOR'S ORGANIZ ATION 05/09/2024 [facility] DATE CREATED AUTHOR AUTHOR'S ORGANIZ ATION 05/10/2024 [facility] DATE CREATED AUTHOR AUTHOR'S ORGANIZ ATION 05/11/2024 [facility] DATE CREATED AUTHOR AUTHOR'S ORGANIZ ATION 05/12/2024 [facility] DATE CREATED AUTHOR AUTHOR'S ORGANIZ ATION 05/13/2024 [facility] DATE CREATED AUTHOR AUTHOR'S ORGANIZ ATION 05/14/2024 [facility] DATE CREATED AUTHOR AUTHOR'S ORGANIZ ATION 05/19/2024 [facility] DATE CREATED AUTHOR AUTHOR'S ORGANIZ ATION 05/22/2024 [facility] DATE CREATED AUTHOR AUTHOR'S ORGANIZ ATION 05/29/2024 [facility] DATE CREATED AUTHOR AUTHOR'S ORGANIZ ATION 06/03/2024 [facility] DATE CREATED AUTHOR AUTHOR'S ORGANIZ ATION 06/05/2024 [facility] DATE CREATED AUTHOR AUTHOR'S ORGANIZ ATION 06/09/2024 [facility] DATE CREATED AUTHOR AUTHOR'S ORGANIZ ATION 06/11/2024 [facility] DATE CREATED AUTHOR AUTHOR'S ORGANIZ ATION 06/26/2024 [facility] DATE CREATED AUTHOR AUTHOR'S ORGANIZ ATION 07/07/2024 [facility] DATE CREATED AUTHOR AUTHOR'S ORGANIZ ATION 07/10/2024 [facility] DATE CREATED AUTHOR AUTHOR'S ORGANIZ ATION 2024 [facility] DATE CREATED AUTHOR AUTHOR'S ORGANIZ ATION 09/15/2024 [facility] DATE CREATED AUTHOR AUTHOR'S ORGANIZ ATION 12/23/2024 [facility] DATE CREATED AUTHOR AUTHOR'S ORGANIZ ATION 01/04/2025 [facility] DATE CREATED AUTHOR AUTHOR'S ORGANIZ ATION 02/20/2025 [facility] REASON FOR VISIT (unrecogniz ed [...] Team Status: Inactive Member Role Status Dates oDnato Robin MD Primary Care Provider Active [place] ProviderActive Team Status: Active Member Role Status Dates NON STAFF Primary Care Provider Active Team Status: Inactive Member Role Status Dates NON STAFF Primary Care Provider Active Start: May 23, 2024 End: May 23, 2024Edson Wharton ProviderActiveStart: May 23, 2024 End: May 23, 2024 [...] BE BASED ON THE PRIMARY CLINICAL RECORDS. [employer] provides no warranty or guarantee of the accuracy or completeness of information in this document.
[2025-04-16 15:23] LABS: Ferritin 66.0 ng/mL (26.0-388.0)
[2025-04-20 01:07] LABS: Calprotectin, Fecal 115 ug/g (0-120)
== END 2025-04-16 13:37 | disposition home or self-care (01) ==
LOC: LAB 13:39
PROVIDERS: PCP Student in an Organized Health Care Education/Training Program; Visit Provider Internal Medicine
DX: K51.90 Ulcerative colitis, unspecified, without complications (principal); K74.3 Primary biliary cirrhosis; K76.0 Fatty (change of) liver, not elsewhere classified; K86.89 Other specified diseases of pancreas
CPT/HCPCS: 36415; 80053; 82306; 82728; 83540; 83550; 86140